=== PATIENT | female | born 1970 | race Caucasian/White ===

== ENCOUNTER 2022-12-18 20:05 | Outpatient (OUT) | payer BC, SELFPAY | END 2022-12-18 20:06 | disposition home or self-care (01) | LOC: SLEEP 20:05 | PROVIDERS: PCP Psychiatry & Neurology Neurology; Visit Provider Psychiatry & Neurology Neurology | DX: G47.33 Obstructive sleep apnea (adult) (pediatric) (principal); G47.00 Insomnia, unspecified; R06.83 Snoring | CPT/HCPCS: 95810 ==

== ENCOUNTER 2023-01-18 09:06 | Outpatient (OUT) | payer BC, SELFPAY ==
[2023-01-18 09:30] LABS: Basophils Absolute Auto 0.1 10^3/uL (0.0-0.1); Basophils Percent Auto 0.5 % (0.2-2.0); Eosinophils Absolute Auto 0.4 10^3/uL (0.0-0.7); Eosinophils Percent Auto 3.1 % (0.9-7.0); Hematocrit 46.9 % (36.0-48.0); Hemoglobin 15.6 g/dL (12.0-16.0); Immature Granulocytes Abs Auto 0.07 10^3/uL (0.00-0.03); Immature Granulocytes Pct Auto 0.5 % (0.0-0.5); Lymphocytes Absolute Auto 2.1 10^3/uL (1.2-3.8); Lymphocytes Percent Auto 16.6 % (20.5-60.0); Mean Corpuscular HGB Conc 33.3 g/dL (29.9-35.2); Mean Corpuscular Hemoglobin 31.5 pg (26.7-34.0); Mean Corpuscular Volume 94.6 fL (81.0-99.0); Mean Platelet Volume 9.6 fL (9.5-13.5); Monocytes Absolute Auto 1.4 10^3/uL (0.3-0.8); Monocytes Percent Auto 11.2 % (1.7-12.0); Neutrophils Absolute Auto 8.8 10^3/uL (1.4-6.5); Neutrophils Percent Auto 68.1 % (43.0-75.0); Platelet Count 323 10^3/uL (150-450); Red Blood Count 4.96 10^6/uL (4.20-5.40); Red Cell Distribution Width 13.1 % (11.0-15.0); White Blood Count 12.9 10^3/uL (4.0-11.0)
[2023-01-18 10:20] LABS: Alanine Aminotransferase 47 U/L (14-59); Albumin Globulin Ratio 0.9; Albumin Level 3.8 g/dL (3.4-5.0); Alkaline Phosphatase 79 U/L (46-116); Aspartate Amino Transferase 29 U/L (15-37); BUN Creatinine Ratio 11.4; Bilirubin Total 0.5 mg/dL (0.2-1.0); Calcium 9.2 mg/dL (8.5-10.1); Carbon Dioxide 26.5 mmol/L (21.0-32.0); Chloride 101 mmol/L (98-107); Chol HDL Ratio 4.2; Cholesterol 185 mg/dL (<=200); Estimated GFR (African America >60 (>=60); Estimated GFR (Non-African Ame >60 (>=60); Globulin 4.1 g/dL; Glucose 119 mg/dL (74-106); HDL Cholesterol 44 mg/dL (40-60); Potassium 4.5 mmol/L (3.5-5.1); Sodium 138 mmol/L (136-145); Thyroid Stimulating Hormone 1.801 uIU/mL (0.358-3.740); Total Protein 7.9 g/dL (6.4-8.2); Triglycerides 354 mg/dL (<=150); VLDL CHOLESTEROL 70.8 mg/dL
[2023-01-18 10:35] LABS: Estimated Average Glucose 123 mg/dL; Glycohemoglobin A1C 5.9 % (4.5-6.2)
== END 2023-01-18 09:07 | disposition home or self-care (01) ==
LOC: LAB 09:09
PROVIDERS: PCP Nurse Practitioner Family; Visit Provider Family Medicine
DX: Z00.00 Encounter for general adult medical examination without abnormal findings (principal)
CPT/HCPCS: 36415; 80053; 80061; 83036; 84436; 84443; 85025

== ENCOUNTER 2023-02-27 20:03 | Outpatient (OUT) | payer BC, SELFPAY | END 2023-02-27 20:04 | disposition home or self-care (01) | LOC: SLEEP 20:03 | PROVIDERS: PCP Nurse Practitioner Family; Visit Provider Psychiatry & Neurology Neurology | DX: G47.33 Obstructive sleep apnea (adult) (pediatric) (principal); F51.01 Primary insomnia | CPT/HCPCS: 95811 ==

== ENCOUNTER 2023-03-27 19:52 | Outpatient (REF) | payer BC, SELFPAY ==
[2023-04-04 09:12] LABS: Pap IG (Image Guided) Note (.)
== END 2023-03-27 19:53 | disposition home or self-care (01) ==
LOC: LAB 19:52
PROVIDERS: PCP Nurse Practitioner Family; Visit Provider Physician Assistant
DX: R87.612 Low grade squamous intraepithelial lesion on cytologic smear of cervix (LGSIL) (principal)
CPT/HCPCS: 87624; G0145

== ENCOUNTER 2023-03-28 11:30 | Outpatient (OUT) | payer BC, SELFPAY ==
--- NOTE | 2023-03-28 11:32 | MM_ITS ---
Patient: NOEL MENDOZA Exam Date: 03/28/2023 : 1970 Gender:F Ordering : DR Eduardo Huitron . Admission #: [id number] Family : CYNDEE MOSELEY [employer]-C Order #: [id number] CLICK HERE TO VIEW EXAM RADIOLOGY REPORT PROCEDURE: MM TOMOSYNTHESIS SCREENING BI COMPARISON: MG MAMM SCREEN SAUL W CAD, 06/10/2020. MG MAMM SCREEN 3D SAUL CAD, 09/08/2021. INDICATIONS: Screening Calculator Name NCI Breast Cancer Risk Assessment Tool 5 Year Breast Cancer Risk 0.80% Lifetime Breast Cancer Risk 6.70% Personal Breast Cancer No Personal Ovarian Cancer No Treatments None Family Cancers Father with prostate cancer at age 70; Brother with colon cancer at age 50. LOCATION: [facility] BREAST COMPOSITION: Heterogeneously dense,which may obscure small masses. FINDINGS: DIAGNOSTIC CATEGORY 2--BENIGN FINDING: Scattered benign-appearing nodules are present. Scattered benign-appearing calcifications are present. Scattered benign-appearing lymph nodes are present. RIGHT BREAST: No significant suspicious finding. LEFT BREAST: No significant suspicious finding. RECOMMENDATIONS: ROUTINE MAMMOGRAM AND CLINICAL EVALUATION IN 12 MONTHS. PLEASE NOTE: A NORMAL MAMMOGRAM DOES NOT EXCLUDE THE POSSIBILITY OF BREAST CANCER. A CLINICALLY SUSPICIOUS PALPABLE LUMP SHOULD BE BIOPSIED. Dictated by: Magdaleno Frank MD on 03/29/2023 at 11:05 Approved by: Magdaleno Frank MD on 03/29/2023 at 11:06
== END 2023-03-28 11:31 | disposition home or self-care (01) ==
LOC: MAMMO 11:30
PROVIDERS: PCP Nurse Practitioner Family; Visit Provider Obstetrics & Gynecology
DX: Z12.31 Encounter for screening mammogram for malignant neoplasm of breast (principal); Z80.42 Family history of malignant neoplasm of prostate; Z80.0 Family history of malignant neoplasm of digestive organs
CPT/HCPCS: 77063; 77067

== ENCOUNTER 2024-01-29 06:49 | Outpatient (OUT) | payer BC, SELFPAY ==
--- OUTSIDE RECORDS SUMMARY | 2024-01-29 06:52 | XMS_ITS | CCD ---
Author Organization [facility] CliniSyt[facility] Care Team Providers Care Foot Tender Name Role Phone UNKNOWN, PROVIDER Attending Unavailable OSIEL PETTIT Primary Care Unavailable Joseph Osiel Murphy Unavailable Unavailable Unavailable Jael Fournier Unavailable Ms. Jerome Pelaez Attending Unavailable Ms. Jerome Pelaez Referring Unavailable Dr. Osiel Pettit Primary Care Unava ilable Kimberley Rodríguez Unavailable Eduardo ZHOU Referring Unavailable Chris TRAYLOR Attending Unavailable DO Osiel Pettit Primary Care Provider MANAV Christian Emergency Provider [phone] MD Shari Kang Admit Provider MD Shari Kang Attending Provider [phone] MD Savanna Orellana Attending Provider DO Rajesh Hurd Other Provider Kimberley Rodríguez Admitting Unavailable Kimberley Rodríguez Attending Unavailable Osiel Pettit Primary Care Unavailable Osiel Pettit Primary Care Unavailable Shari Kang Admitting Unavailable Rajesh Hurd Consulting Unavailable Savanna Orellana Attending Unavailable DO Osiel Pettit Primary Care Provider [phone] MANAV Christian Emergency Provider [phone] MD Shari Kang Admit Provider MD Savanna Orellana Attending Provider DO Rajesh Hurd Other Provider SHERMAN Rodríguez Attending Provider Dr. Osiel Pettit Primary Care Elfego Bacon Attending Unavailable Benigno, Simeon Jerome Cox Yoav Attending Carloi lable House, Dr. Osiel Lester Primary Care Elfego Bacon Referring Unavailable HOUSE, DR ROACH Primary Care Unavailable REQUEST, DR BAILEY LISTED Admitting Unavaila ble REQUEST, DR BAILEY LISTED Consulting Unavaila ble REQUEST, DR BAILEY LISTED Attending Unavaila ble HOUSE, DR ROACH Primary Care Unavailable HOUSE, DR ROACH Consulting Unavailable HOUSE, DR ROACH Attending Unavailable HOUSE, DR ROACH Referring Unavailable HOUSE, DR ROACH Admitting Unavailable HOUSE, DR ROACH Primary Care Unavailable ABELARDO ., DR MACHUCA Admitting Unavailable ABELARDO ., DR MACHUCA Consulting Unavailable ABELARDO ., DR MACHUCA Attending Unavailable ASHLAND, DR DIANA Gonzalez Attending Unavailable HOUSE, DR ROACH Primary Care Unavailable ASHLAND, DR DIANA Gonzalez Admitting Unavailable ASHLAND, DR DIANA Gonzalez Consulting Unavailable Mag Perry Unavailable Karmen Tovar Unavailable [phone] IVETTE SHIELDS Unavailable [place] Osiel EATON Primary Care Provider ELFEGO MARSHALL Referring Unavailable OSIEL PETTIT Primary Care Unavailable Allergies Allergy Classification Reported Allergen(s) Allergy Type Date of Onset Reaction(s) Facility (20 sources) Hmg-Coa Reductase Inhibitors (Statins); Translations: [Statins] Allergy to drug (finding) [facility] 250 DO Work Phone: (20 sources) Penicillins; Translations: [Penicillins] Allergy to drug (finding) 11-11-2013 [facility] Repository (12 sources) Penicillin V Drug Allergy [facility] Hooked Other (1 source) Penicillin; Translations: [penicillin] Drug Allergy [facility] Repository (1 source) Penicillins Drug allergy (disorder) 07-02-2022 [facility] Repository (1 source) Penicillins Drug allergy (disorder) 08-06-2013 [facility] Repository (2 sources) HMG-CoA reductase inhibitor; Translations: [[id number] REDUCTASE INHIBITORS] Drug Allergy 08-20-2023 [facility] Work Phone: (1 source) Penicillins Drug Allergy 11-11-2013 [facility] Medications Current Medications Medication Drug Class(es) Dates Sig (Normalized) Sig (Original) aspirin 81 mg delayed release oral tablet (20 sources) Platelet Aggregation Inhibitor, Nonsteroidal Anti-inflammatory Drug Start: 05-15-2023 take 2 tablets by mouth once daily aspirin 81 mg EC tablet Indications: Atherosclerosis of [place] coronary artery of [place] heart without angina pectoris TAKE 2 TABLETS BY MOUTH EVERY DAY 60 tablet 11 05/15/2023 Active Start: 11-02-2022 take 1 tablet by hung every other day Aspirin 81 MG Oral Tablet Delayed Release TAKE 1 TABLET EVERY OTHER DAY Quantity: 45 Refills: 3 Ordered: 02-Nov-2022 Elfego Marshall DO Start : 02-Nov-2022 Active Fill at patient request only Start: 07-03-2022 take 81 mg by mouth once daily Aspirin Active 81 MG PO Daily 0 July 03, 2022 1:00am Start: 12-02-2021 take 2 tablets by mo [facility] once daily Aspirin Low Dose 81 MG Oral Tablet Delayed Release TAKE 2 TABLETS DAILY DIRECTED Quantity: 180 Refills: 3 Ordered: 04-Jul-2022 Elfego Marshall DO Start : 02-Dec-2021 Active Start: 07-01-2019 End: 07-03-2022 take 162 mg by mouth once daily Aspirin Discontinued 1 62 MG PO Daily July 01, 2019 1:00am July 03, 2022 4:45pm take 1 tablet by [facility] every twenty-four hours Aspirin 81 MG 1 tablet Orally Once a day Active brompheniramine maleate 0.4 mg/ml / dextromethorphan hydrobromide 2 mg/ml / pseudoephedrine hydrochloride 6 mg/ml oral solution (1 source) alpha-Adrenergic Agonist, Uncompetitive V-rrayrc-L-aspartate Receptor Antagonist, Sigma-1 Agonist Start: 04-14-2022 take 10 mL by mouth every six hours Wgfcuvdve-Zjsdrpvq-YA 30-2-10 MG/5ML 10 mL Orally every 6 hours for 5 days Apr, Active cholecalciferol 0.05 mg oral capsule (11 sources) Vitamin D Start: 08-31-2020 take 1 capsule by mouth once daily Cholecalciferol (Vitamin D3) (Vitamin D3) 50 mcg (2,000 unit) Capsule Active 50 MCG PO Daily August 31, 2020 12:00am take 1 capsule by mo [facility] every twenty-four hours Vitamin D3 50 MCG (1999) 1 capsule Orally Once a day Active clopidogrel 75 mg oral tablet (20 sources) P2Y12 Platelet Inhibitor Start: 08-31-2020 End: 07-02-2022 take 75 mg by mouth once daily Clopidogrel Active 75 MG PO Daily July 03, 2022 1:00am 1 ml evolocumab 140 mg/ml prefilled syringe (5 sources) PCSK9 Inhibitor Start: 10-23-2023 Evolocumab (Repatha Syringe) 140 mg/mL syringe Active MG SUBCUT October 23, 2023 12:00am Start: 05-10-2023 End: 05-09-2024 inject 1 mL by subcutaneous injection once evolocumab (Repatha SureClick) 140 mg/mL injection Indications: Atherosclerosis of [place] coronary artery of [place] heart without angina pectoris , Hyperlipidemia, unspecified hyperlipidemia type Inject 1 mL (140 mg) under the skin every 14 (fourteen) days. 6 mL 3 05/10/2023 05/09/2024 Active Start: 01-26-2023 Repatha 140 MG /ML Subcutaneous Solution Prefilled Syringe 1 injection every 2 weeks Quantity: 6 Refills: 3 Ordered: 26-Jan-2023 Jerome Younger Start : 26-Jan-2023 Active replaces Praulent methylPREDNISolone 4 mg oral tablet (1 source) Corticosteroid Start: 01-28-2024 take 1 tablet by mouth once Methylprednisolone (Medrol (Nolan)) 4 mg tablets,dose pack Active 0 PO per package directions January 28, 2024 12:00am PO PER PKG DIR metoprolol tartrate 25 mg oral tablet (20 sources) beta-Adrenergic Jason Start: 10-06-2021 take 0.5 tablet by mouth twice daily Metoprolol Tartrate 25 MG Oral Tablet take 1/2 tablet by mouth twice a day Quantity: 90 Refills: 0 Ordered: 06-Dec-2021 Jerome Younger Start : 06-Oct-2021 Active Start: 09-01-2020 End: 05-09-2024 take 1 tablet by mouth twice daily metoprolol tartrate (Lopressor) 25 mg tablet Indications: Atherosclerosis of [place] coronary artery of [place] heart without angina pectoris Take 1 tablet (25 mg) by mouth 2 times a day. 180 tablet 3 05/10/2023 05/09/2024 Active Start: 07-01-2019 End: 09-01-2020 take 12.5 mg by mouth twice daily Metoprolol Tartrate Discontinued 12.5 MG PO Twice daily July 01, 2019 1:00am September 01, 2020 12:51pm pantoprazole 40 mg delayed release oral tablet (20 sources) Proton Pump Inhibitor Start: 07-01-2019 take 40 mg by mouth once daily Pantoprazole Active 40 MG PO Daily July 01, 2019 1:00am take 1 tablet by hung th once daily before mealtime pantoprazole (ProtoNix) 20 mg EC tablet Take 1 tablet (20 mg) by mouth once daily in the morning. Take before meals. Do not crush, chew, or split. Active spironolactone 100 mg oral tablet (20 sources) Aldosterone Antagonist Start: 07-01-2019 End: 05-09-2024 take 1 tablet by mouth once daily spironolactone (Aldactone) 100 mg tablet Indications: Atherosclerosis of [place] coronary artery of [place] heart without angina pectoris Take 1 tablet (100 mg) by mouth once daily. 90 tablet 3 05/10/2023 05/09/2024 Active tiZANidine 2 mg oral tablet (1 source) Central alpha-2 Adrenergic Agonist Start: 01-28-2024 take 2 mg by mouth every eight hours Tizanidine Active 2 MG PO Every 8 hours 09 04January 28, 2024 12:00am Completed/Discontinued Medications Medication Drug Class(es) Dates Sig (Normalized) Sig (Original) 1 ml alirocumab 150 mg/ml auto-injector (20 sources) PCSK9 Inhibitor Start: 11-21-2021 inject 75 mg by subcutaneous injection every other week Praluent 75 MG/ML Subcutaneous Solution Auto-injector INJECT 75MG EVERY 2 WEEKS UNDER THE SKIN Quantity: 6 Refills: 3 Ordered: 21-Nov-2021 Jerome Younger Start : 21-Nov-2021 Active Start: 11-16-2021 inject 75 mg by subc utaneous injection every other week Praluent 75 MG/ML Subcutaneous Solution Auto-injector INJECT 75MG EVERY 2 WEEKS UNDER THE SKIN Quantity: 6 Refills: 3 Ordered: 17-Nov-2021 Jerome Younger Start : 17-Nov-2021 Active Start: 10-26-2021 End: 10-23-2023 inject 150 mg by subcutaneous injection every other week Alirocumab (Praluent Pen) 150 mg/mL pen injector Discontinued 150 MG SUBCUT EVERY 2 WEEKS July 02, 2022 1:00am October 23, 2023 12:28pm atorvastatin 40 mg oral tablet (4 sources) HMG-CoA Reductase Inhibitor Start: 07-01-2019 End: 08-31-2020 take 12.5 mg by mouth twice daily Atorvastatin Discontinued 12.5 MG PO Twice daily July 01, 2019 1:00am August 31, 2020 1:43am bempedoic acid 180 mg oral tablet (4 sources) Start: 08-31-2020 End: 07-02-2022 take 1 tablet by mouth once daily Bempedoic Acid (Nexletol) 180 mg tablet Discontinued 180 MG PO Daily August 31, 2020 12:00am July 02, 2022 8:12pm benzonatate 100 mg oral capsule (4 sources) Non-narcotic Antitussive Start: 07-02-2019 End: 08-31-2020 take 1 capsule by mouth three times daily Benzonatate (Tessalon Perles) 100 mg capsule Discontinued 100 MG PO Three times daily July 02, 2019 1:00am August 31, 2020 1:41am doxycycline hyclate 100 mg oral capsule (5 sources) Tetracycline-class Drug Start: 08-12-2021 take 1 capsule by mouth every twelve hours Doxycycline Hyclate 100 MG 1 capsule Orally Twice a day for 10 day(s) Aug, Not-Taking DULoxetine 30 mg delayed release oral capsule (20 sources) Serotonin and Norepinephrine Reuptake Inhibitor Start: 02-26-2023 take 1 capsule by mouth once daily DULoxetine HCl - 30 MG Oral Capsule Delayed Release Particles TAKE 1 CAPSULE BY MOUTH EVERY DAY Quantity: 30 Refills: 1 Ordered: 26-Feb-2023 Jerome Younger Start : 26-Feb-2023 Active Start: 07-01-2019 take 60 mg by mouth once daily Duloxetine Active 60 MG PO Daily July 01, 2019 1:00am Cymbalta Active fenofibrate 54 mg oral tablet (2 sources) Peroxisome Proliferator Receptor alpha Agonist Start: 03-02-2023 take 1 tablet by mouth once daily Fenofibrate 54 MG Oral Tablet TAKE 1 TABLET DAILY. Quantity: 90 Refills: 3 Ordered: 02-Mar-2023 Elfego Marshall DO Start : 02-Mar-2023 Active fluticasone propionate 0.05 mg/actuat metered dose nasal spray (6 sources) Corticosteroid Start: 12-29-2020 take 1 spray(s) nasal route once daily Flonase Allergy Relief 50 MCG/ACT 1 spray in each nostril Nasally Once a day for 14 day(s) Dec, Not-Taking furosemide 20 mg oral tablet (20 sources) Loop Diuretic Start: 02-01-2022 End: 10-23-2023 take 20 mg by mouth once daily Furosemide Discontinued 20 MG PO Daily July 02, 2022 1:00am October 23, 2023 12:28pm ibuprofen 800 mg oral tablet (4 sources) Nonsteroidal Anti-inflammatory Drug Start: 09-01-2020 End: 09-01-2020 Ibuprofen Discontinued 800 MG PO every 6 to 8 hours September 01, 2020 12:00am September 01, 2020 12:51pm LORazepam 0.5 mg oral tablet (4 sources) Benzodiazepine Start: 07-02-2019 End: 07-02-2019 take 0.5 mg by mouth three times daily Lorazepam Discontinued 0.5 MG PO Three times daily July 02, 2019 1:00am July 02, 2019 5:53pm prasugrel 10 mg oral tablet (4 sources) P2Y12 Platelet Inhibitor Start: 07-02-2019 End: 08-31-2020 take 1 tablet by mouth once daily Prasugrel (Effient) 10 mg Tablet Discontinued 10 MG PO Daily 30 July 02, 2019 1:00am August 31, 2020 1:41am predniSONE 50 mg oral tablet (4 sources) Start: 08-31-2020 End: 07-02-2022 take 50 mg by mouth once daily Prednisone Discontinued 50 MG PO Daily 5 5 August 31, 2020 12:00am July 02, 2022 8:12pm Problems Active Problems Problem Classification Problem Date Documented Date Episodic/Chronic Acute myocardial infarction (20 sources) Myocardial infarction; Translations: [Acute myocardial infarction of unspecified site, episode of care unspecified] Onset: 03-23-2023 07-02-2019 Chronic Cardiac dysrhythmias (20 sources) Paroxysmal supraventricular tachycardia; Translations: [Paroxysmal supraventricular tachycardia] Onset: 03-23-2023 08-31-2020 Chronic Coronary atherosclerosis and other heart disease (20 sources) Old myocardial infarction; Translations: [Atherosclerotic heart disease of [place] coronary artery without angina pectoris] Onset: 06-28-2018 07-01-2019 Chronic Coronary atherosclerosis and other heart disease (6 sources) Coronary angioplasty status; Translations: [Post percutaneous transluminal coronary angioplasty] Onset: 06-28-2018 07-01-2019 Episodic Diabetes mellitus without complication (7 sources) Diabetes mellitus; Translations: [Diabetes mellitus without mention of complication, type II or unspecified type, not stated as uncontrolled] Onset: 08-20-2023 08-20-2023 Chronic Diseases of white blood cells (4 sources) Leukocytosis; Translations: [Elevated white blood cell count, unspecified] 07-01-2019 Chronic Disorders of lipid metabolism (20 sources) Hyperlipidemia; Translations: [Other and unspecified hyperlipidemia] Onset: 07-02-2022 07-01-2019 Chronic E Codes: Natural/environment (2 sources) Tick bite; Translations: [Bitten or stung by nonvenomous insect and other nonvenomous arthropods, initial encounter] 10-23-2023 Episodic Esophageal disorders (10 sources) Gastroesophageal reflux disease without esophagitis; Translations: [Gastro-esophageal reflux disease without esophagitis] Chronic Essential hypertension (8 sources) Hypertensive disorder; Translations: [Essential (primary) hypertension] Onset: 07-02-2022 07-02-2022 Chronic Fever of unknown origin (1 source) Fever; Translations: [Fever, unspecified] 01-28-2024 Episodic Fluid and electrolyte disorders (4 sources) Hyponatremia; Translations: [Hypo-osmolality and hyponatremia] 07-01-2019 Episodic Genitourinary symptoms and ill-defined conditions (2 sources) Dysuria; Translations: [Dysuria] Onset: 09-05-2022 Episodic Headache; including migraine (2 sources) Headache; Translations: [Headache] 01-28-2024 Episodic Malaise and fatigue (20 sources) Other fatigue; Translations: [Fatigue] Onset: 06-28-2018 03-23-2023 Episodic Mood disorders (15 sources) Reactive depression (situational); Translations: [Major depressive disorder, single episode, unspecified] Onset: 08-20-2023 Chronic Nonspecific chest pain (20 sources) Other chest pain; Translations: [Chest discomfort] Onset: 06-28-2018 07-01-2019 Episodic Other circulatory disease (20 sources) Cardiac function test normal; Translations: [Normal cardiac ejection fraction] Episodic Other circulatory disease (2 sources) Personal history of transient ischemic attack (TIA), and cerebral infarction without residual deficits Episodic Other connective tissue disease (4 sources) Musculoskeletal pain; Translations: [Myalgia, other site] 08-31-2020 Episodic Other hematologic conditions (4 sources) Raised cardiac enzyme or marker; Translations: [Other specified abnormalities of plasma proteins] 07-01-2019 Episodic Other lower respiratory disease (1 source) Shortness of breath Onset: 06-28-2018 Episodic Other nervous system disorders (4 sources) Numbness; Translations: [Anesthesia of skin] 07-02-2022 Episodic Other nervous system disorders (4 sources) Anesthesia of skin; Translations: [Disturbance of skin sensation] Onset: 07-02-2022 07-02-2022 Episodic Other nutritional; endocrine; and metabolic disorders (10 sources) Body mass index 25-29 - overweight; Translations: [Body Mass Index 28.0-28.9, adult] Episodic Other nutritional; endocrine; and metabolic disorders (20 sources) Overweight in adulthood with body mass index of 25 or more but less than 30; Translations: [Overweight] Episodic Other upper respiratory infections (4 sources) Acute pansinusitis, unspecified; Translations: [Acute upper respiratory infection, unspecified] Onset: 08-12-2021 Resolved: 08-12-2021 Episodic Residual codes; unclassified (5 sources) Swelling - edema - symptom; Translations: [Edema] Episodic Spondylosis; intervertebral disc disorders; other back problems (2 sources) Neck pain; Translations: [Cervicalgia] 01-28-2024 Episodic Substance-related disorders (20 sources) Nicotine dependence, unspecified, uncomplicated; Translations: [Smokes tobacco daily] Onset: 06-28-2018 07-01-2019 Chronic Comment on above: SMOKES ABOUT 1 PPD; Transient cerebral ischemia (20 sources) Transient cerebral ischemia; Translations: [Unspecified transient cerebral ischemia] Onset: 03-23-2023 03-23-2023 Chronic Unclassified (1 source) Pure hypercholesterolemia, unspecified Onset: 06-28-2018 Unclassified (1 source) Prsnl hx of TIA (TIA), and cereb infrc w/o resid deficits Onset: 06-28-2018 Past or Other Problems Problem Classification Problem Date Documented Date Episodic/Chronic Immunizations and screening for infectious disease (2 sources) Contact with and (suspected) exposure to other viral communicable diseases; Translations: [Encounter for screening for human papillomavirus (HPV)] Onset: 08-12-2021 Resolved: 08-12-2021 Episodic Other circulatory disease (20 sources) Patient post angioplasty; Translations: [Other postprocedural status] Onset: 03-23-2023 03-23-2023 Episodic Other screening for suspected conditions (not mental disorders or infectious disease) (4 sources) Encounter for screening for malignant neoplasm of cervix; Translations: [ENC SCREENING MALIG NEOPLASM CERV] Onset: 04-20-2022 Episodic Alyce-; endo-; and myocarditis; cardiomyopathy (except that caused by tuberculosis or sexually transmitted disease) (20 sources) Disease of pericardium, unspecified; Translations: [Pericarditis] Onset: 06-28-2018 03-23-2023 Episodic Residual codes; unclassified (20 sources) Edema; Translations: [Edema] Onset: 03-23-2023 03-23-2023 Episodic Unclassified (2 sources) Contact with and (suspected) exposure to covid-19 Z20.822 Unclassified (2 sources) History of COVID-19 Z86.16 Viral infection (1 source) COVID-19 Results Test Name Value Interpretation Reference Range Facility Cardiac stress study [facility] 11-21-[address], [address] [place] [address] Exercise Stress Test Patient Name: SHEFALI RIGGS Ordering Provider: [id number] ELFEGO MARSHALL Study Date: 11/21/2023 Reading Physician: [id number] Deuce Roberto MD, [facility] MRN/PID: [id number] Supervising Physician: [id number] Elfego Hernandez MD Fellow: Date of /Age: 8 1970 / 53 years Fellow: Gender: F Nurse: Zuleyma Bell RN Admission Status: Behavioral Health Associate: NA Height: 162.56 cm Technologist: Weight: 76.20 kg Additional Staff: BSA: 1.82 m2 BMI: 28.84 kg/m2 Patient Location: Study Type: STRESS TEST ONLY Diagnosis/ICD: Atherosclerotic heart disease-I25.10 Indication: Chest Pain CPT Codes: Stress Test Interpretation-87211; Stress Test Supervision-[id number] Falls Risk: Low: Patient has low risk for sustaining a fall; environmental safety interventions in place. Study Details: Correct procedure and correct patient verified verbally. Patient Performance: The peak heart rate achieved was 142 bpm, which was 85 % of the age predicted target heart rate of 166 bpm. The resting blood pressure was 128/82 mmHg with a heart rate of 66 bpm. The standing blood pressure was 124/86 mmHg with a heart rate of 70 bpm. The patient's functional capacity was below average. The patient developed dyspnea during the stress exam. The blood pressure response was normal. The test was terminated due to: dyspnea. Double Product (HR x BP): 216. Baseline ECG: Resting ECG showed normal sinus rhythm. Stress Stage Data: + +---+-- ----+-------+ HR Sys BP Rivera BP + +---+-- ----+-------+ Baseline Resting 66 128 82 + +---+-- ----+-------+ Baseline Standing 70 124 86 + +---+-- ----+-------+ Stage I 120 132 78 + +---+-- ----+-------+ Stage II 142 152 86 + +---+-- ----+-------+ Recovery ECG: The heart rate recovery was normal. + +---+------+ -------+ HR Sys BP Rivera BP + +---+------+ -------+ Recovery I 142 152 86 + +---+------+ -------+ Recovery II 126 156 86 + +---+------+ -------+ Recovery III 99 132 86 + +---+------+ -------+ Recovery IV 81 122 82 + +---+------+ -------+ Summary: 1. 1_normal graded exercise tolerance test after completing 6 minutes on a Eric protocol and achieving 85% of predicted maximal heart rate and a workload of 7 METS. Blood pressure nikolay to 156/86 mmHg. 2_no chest pain, cardiac arrhythmias or ischemic ST segment abnormalities induced by exercise 3_somewhat limited exercise tolerance for age, appropriate heart recovery and achievement of Rodriguez treadmill score of 6+ which is favorable. 2. Adequate level of stress achieved. [id number] Deuce Roberto MD, FACC Electronically signed on 11/21/2023 at 4:57:24 PM Final Deuce Crawley M D - 11/21/[address], [address] [place] [address] Exercise Stress Test Patient Name: SHEFALI RIGGS Ordering Provider: [id number] ELFEGO MARSHALL Study Date: 11/21/2023 Reading Physician: [id number] Deuce Roberto MD, FACC MRN/PID: [id number] Supervising Physician: [id number] Elfego Hernandez MD Fellow: Date of /Age: 8 1970 / 53 years Fellow: Gender: F Nurse: Zuleyma Bell RN Admission Status: Behavioral Health Associate: MANINDER Height: 162.56 cm Technologist: Weight: 76.20 kg Additional Staff: BSA: 1.82 m2 BMI: 28.84 kg/m2 Patient Location: Study Type: STRESS TEST ONLY Diagnosis/ICD: Atherosclerotic heart disease-I25.10 Indication: Chest Pain CPT Codes: Stress Test Interpretation-21795; Stress Test Supervision-[id number] Falls Risk: Low: Patient has low risk for sustaining a fall; environmental safety interventions in place. Study Details: Correct procedure and correct patient verified verbally. Patient Performance: The peak heart rate achieved was 142 bpm, which was 85 % of the age predicted target heart rate of 166 bpm. The resting blood pressure was 128/82 mmHg with a heart rate of 66 bpm. The standing blood pressure was 124/86 mmHg with a heart rate of 70 bpm. The patient's functional capacity was below average. The patient developed dyspnea during the stress exam. The blood pressure response was normal. The test was terminated due to: dyspnea. Double Product (HR x BP): 216. Baseline ECG: Resting ECG showed normal sinus rhythm. Stress Stage Data: + +---+-- ----+-------+ HR Sys BP Rivera BP + +---+-- ----+-------+ Baseline Resting 66 128 82 + +---+-- ----+-------+ Baseline Standing 70 124 86 + +---+-- ----+-------+ Stage I 120 132 78 + +---+-- ----+-------+ Stage II 142 152 86 + +---+-- ----+-------+ Recovery ECG: The heart rate recovery was normal. + +---+------+ -------+ HR Sys BP Rivera BP + +---+------+ -------+ Recovery I 142 152 86 + +---+------+ -------+ Recovery II 126 156 86 + +---+------+ -------+ Recovery III 99 132 86 + +---+------+ -------+ Recovery IV 81 122 82 + +---+------+ -------+ Summary: 1. 1_normal graded exercise tolerance test after completing 6 minutes on a Eric protocol and achieving 85% of predicted maximal heart rate and a workload of 7 METS. Blood pressure nikolay to 156/86 mmHg. 2_no chest pain, cardiac arrhythmias or ischemic ST segment abnormalities induced by exercise 3_somewhat limited exercise tolerance for age, appropriate heart recovery and achievement of Rodriguez treadmill score of 6+ which is favorable. 2. Adequate level of stress achieved. [id number] Deuce Roberto MD, [facility] Electronically signed on 11/21/2023 at 4:57:24 PM Final [facility] Work Phone: Cardiac stress study Procedu reOrdered By: Deuce Roberto on 11-21-2023 [facility] Work Phone: STRESS TEST ONLYon 4 STRESS TEST ONLY [address], [place] [address] Exercise Stress Test Patient Name: SHEFALI RIGGS Ordering Provider: [id number] ELFEGO MARSHALL Study Date: 11/21/2023 Reading Physician: [id number] Deuce Roberto MD, [facility] MRN/PID: [id number] Supervising Physician: [id number] Elfego Hernandez MD Fellow: Date of /Age: 8 1970 / 53 years Fellow: Gender: F Nurse: Zuleyma Bell RN Admission Status: Behavioral Health Associate: MANINDER Height: 162.56 cm Technologist: Weight: 76.20 kg Additional Staff: BSA: 1.82 m2 BMI: 28.84 kg/m2 Patient Location: Study Type: STRESS TEST ONLY Diagnosis/ICD: Atherosclerotic heart disease-I25.10 Indication: Chest Pain CPT Codes: Stress Test Interpretation-48009; Stress Test Supervision-[id number] Falls Risk: Low: Patient has low risk for sustaining a fall; environmental safety interventions in place. Study Details: Correct procedure and correct patient verified verbally. Patient Performance: The peak heart rate achieved was 142 bpm, which was 85 % of the age predicted target heart rate of 166 bpm. The resting blood pressure was 128/82 mmHg with a heart rate of 66 bpm. The standing blood pressure was 124/86 mmHg with a heart rate of 70 bpm. The patient's functional capacity was below average. The patient developed dyspnea during the stress exam. The blood pressure response was normal. The test was terminated due to: dyspnea. Double Product (HR x BP): 216. Baseline ECG: Resting ECG showed normal sinus rhythm. Stress Stage Data: + +---+-- ----+-------+ HR Sys BP Rivera BP + +---+-- ----+-------+ Baseline Resting 66 128 82 + +---+-- ----+-------+ Baseline Standing 70 124 86 + +---+-- ----+-------+ Stage I 120 132 78 + +---+-- ----+-------+ Stage II 142 152 86 + +---+-- ----+-------+ Recovery ECG: The heart rate recovery was normal. + +---+------+ -------+ HR Sys BP Rivera BP + +---+------+ -------+ Recovery I 142 152 86 + +---+------+ -------+ Recovery II 126 156 86 + +---+------+ -------+ Recovery III 99 132 86 + +---+------+ -------+ Recovery IV 81 122 82 + +---+------+ -------+ Summary: 1. 1_normal graded exercise tolerance test after completing 6 minutes on a Eric protocol and achieving 85% of predicted maximal heart rate and a workload of 7 METS. Blood pressure nikolay to 156/86 mmHg. 2_no chest pain, cardiac arrhythmias or ischemic ST segment abnormalities induced by exercise 3_somewhat limited exercise tolerance for age, appropriate heart recovery and achievement of Rodriguez treadmill score of 6+ which is favorable. 2. Adequate level of stress achieved. [id number] Deuce Roberto MD, FACC Electronically signed on 11/21/2023 at 4:57:24 PM Final [facility] COVID Quick Testingon 2022 Result Positive [employer] Other Urinalysis - AUTOMATEDon Appearance (U) clear [employer] Other Bilirubin Ql (U) Negative [employer] Other Color (U) light yellow [employer] Other Glucose Ql (U) Negative [employer] Other Hemoglobin Ql (U) TRACE-INTACT [employer] Other Ketones Ql (U) Negative [employer] Other Leukocyte esterase Test strip Ql (U) Negative [employer] Other Nitrite Ql (U) Negative [employer] Other pH (U) 7.0 [pH] [employer] Other Protein Ql (U) Negative [employer] Other Specific gravity (U) [Rel density] 1.010 [employer] Other Urobilinogen (U) [Mass/Vol] 0.2 mg/dL [employer] Other Urinalysis - AUTOMATED No rt [employer] Other Urine Cultureon 09-05-2022 Bacteria identified Cx Nom (U) Reason for Exam Dysuria Urine 40,000 colonies/ml mixed bacterial skin contaminants 2 Days PERFORMED BY: [place] [id number] PATHOLOGIST LIBRARIAN SPECIALIST KIRSTIN ALFORD M.D. Normal [facility] Comment on above: Performed By: #### C UU #### [facility] [address] [place] [address] ANNMARIE COVID-19 ANTIGENon 08-25 EUA Statement SEE BELOW Normal [facility] Comment on above: Result Comment: This test has not been FDA cleared or approved, but has been authorized by the FDA under an Emergency Use Authorization (EUA) for use by authorized laboratories certified under CLIA that meet the requirements to perform moderate or high complexity testing. This test has been authorized only for the detection of proteins from SARS-CoV-2, not for any other viruses or pathogens. The emergency use of this test is authorized for the duration of the declaration that circumstances exist justifying the authorization of emergency use of in vitro diagnostic tests for detection and/or diagnosis of Covid-19 under section 564(b)(1) of the Act, 21 U.S.C. 360bbb-3(b)(1), unless the declaration is terminated or authorization is revoked sooner. Performed By: #### D ATCVAG #### [facility] [address] [place] [address] Dr. Alley Ochoa SARS-CoV-2 (COVID-19) RNA SCOTTY+probe Ql (Unsp spec) Negative Normal NEGATIVE [facility] Comment on above: Performed By: #### D ATCVAG #### [facility] [address] [place] [address] Dr. Alley Ochoa A1C with Estimated Average G luon 07-03-2022 Glucose [Mass/Vol] 120 mg/dL Normal [facility] Comment on above: Result Comment: PERF ORMED BY: [place] [address] PATHOLOGIST LIBRARIAN SPECIALIST KIRSTIN ALFORD M.D. Performed By: #### L IPID, A1C [facility] ####[facility] [id number] [place] [id number] [facility] CT angio neckon 07-03-2022 CT angio neck [facility] Main [place] [address] [place] [address] CT Scan Report Signed Patient: Shefali Riggs MR#: [id number] 187 : 1970 Acct:[id number] Age/Sex: 52 / F ADM Date: 07/02/22 Loc: Room: [address] [place] [address] Type: ADM IN Attending Dr: Savanna Orellana MD Copies to: MANAV Livingston MD Ordering Provider: Edward Christian PA-C Date of Service: 07/02/22 CT/CT angio head: acute stroke/neuro deficits ([id number]) CT/CT angio neck: acute stroke/neuro deficits CTA head and neck TECHNIQUE: Axial imaging of the head and neck with 2-D and 3-D reconstruction. 81cc of Isovue-370. The CT exam was performed using one or more the following dose reduction techniques: Automated exposure control, adjustment of the MA and/or Kv according to patient size, or use of the iterative reconstruction technique. Stenoses were measured using the NASCET criteria. COMPARISON:None HISTORY:Left-sided facial droop. Syncope. The visualized aortic arch and great vessels are unremarkable. No carotid dissection, critical stenosis or occlusion identified. Atherosclerosis of carotid bifurcations identified. No vertebral dissection, occlusion or abrupt cut off identified. The carotid siphons and vertebral basilar systems are patent. No intracranial aneurysm, dissection, abrupt cut off or critical stenosis identified.. The intracranial arterial circulation is symmetrical.. Emphysematous changes of the lung apices. Mild thoracic spondylosis. CT/CT angio head IMPRESSION: No occlusion, critical stenosis or dissection of the extracranial or intracranial circulation. No intracranial aneurysm. Impression dictated by: Yohannes Ascencio M.D.07/03/2022 8:06 AM Dictation Location: [place] [address] Transcribed By: [facility] 07/03/22 0806 Dictated By: Yohannes Ascencio DO 07/03/22 0803 Signed By: 07/03/[address] [facility] CT head stroke alert wo nelsy n 07-03-2022 CT head stroke alert wo [facility] [place] [address] CT Scan Report Signed Patient: Shefali Riggs MR#: [id number] 187 : 1970 Acct:[id number] Age/Sex: 52 / F ADM Date: 07/02/22 Loc: Room: [address] [place] [address] Type: ADM IN Attending Dr: Savanna Orellana MD Copies to: MANAV Livingston MD Ordering Provider: Edward Christian PA-C Date of Service: 07/02/22 CT/CT head stroke alert wo con: acute stroke/neuro deficits Unenhanced head CTstroke alert TECHNIQUE: Contiguous axial imaging of the head. The CT exam was performed using one or more the following dose reduction techniques: Automated exposure control, adjustment of the MA and/or Kv according to patient size, or use of the iterative reconstruction technique. COMPARISON:None HISTORY:LEFT facial droop. Syncope. The ventricles are normal in size and position. Adequate byrd-white matter differentiation identified. No intracranial hemorrhage, mass effect or herniation is identified. No recent vascular distribution infarction is seen. No abnormal extra-axial fluid collections identified. Sinuses, orbits and mastoid air cells are unremarkable. Bony structures are intact. CT/CT head stroke alert wo con IMPRESSION: No acute intracranial findings. Preliminary findings given 07/02/22 at 1930 hours Impression dictated by: Yohannes Ascencio M.D.07/03/2022 8:02 AM Dictation Location: [place] [address] Transcribed By: [facility] 07/03/22801 Dictated By: Yohannes Ascencio DO 07/03/22800 Signed By: 07/03/22 08 Normal [facility] Cholesterol [Mass/volume] in Serum or PlasmaOrdered By: Shari Kang on 07-03-2022 Cholesterol [Mass/Vol] 151 mg/dL 140-200 [facility] Comment on above: Chol less than 200 m g/dl low riskChol 201-239 mg/dl borderline riskChol 240 mg/dl and greater high risk Cholesterol in LDL Calc [Mas s/Vol]Ordered By: Shari Kang on 07-03-2022 Cholesterol in LDL [Mass/Vol] 77 mg/dL 0-100 [facility] Comment on above: LDL ATP III CLASSIFI CATIONLDL less than 100 mg/dL OptimalLDL 100-129 mg/dL Near or above optimalLDL 130-159 mg/dL Borderline highLDL 160-189 mg/dL HighLDL greater than 189 mg/dL Very high Cholesterol in VLDL Calc [Ma ss/Vol]Ordered By: Shari Kang on 07-03-2022 Cholesterol in VLDL [Mass/Vol] 34 mg/dL [facility] ECH echo transthoracicon ECH echo transthoracic [facility] Main [place] [address] [place], [place] [id number] Echocardiogram Signed Patient: Shefali Riggs MR#: [id number] 187 : 1970 Acct:[id number] Age/Sex: 52 / F ADM Date: 07/02/22 Loc: Room: [address] [place] [address] Type: DIS INOo Attending Dr: Savanna Orellana MD Ordering Provider: Shari Kang MD Date of Service: 07/02/22 ECH/ECH echo transthoracic: with bubble study, stroke work up Copies to: MD Rosio Cervantes MD BSA: 1.8 m2 BP: 138/83 mmHg HR: 51 Reason For Study: with bubble study, stroke work up History: CAD,Hypertension,PTCA,TIA ,Hyperlipidemia,Smoker, Pericarditis, SVT, TIA Interpretation Summary Ejection Fraction = 55-60%. The left ventricular size, thickness and function are normal The left ventricular wall motion is normal. A variety of Doppler measurements indicate impaired left ventricular relaxation, which is associated with grade I/IV or mild diastolic dysfunction. Atrial septum appears to be intact and there is no evidence of flow across the atrial septum either by colorflow Doppler or by agitated saline. There is trace mitral regurgitation. There is trace tricuspid regurgitation. Compared to prior study, there is no significant change. Procedure/Quality: A two-dimensional transthoracic echocardiogram with color flow, Doppler and injection of aggitated saline was performed. A two- dimensional transthoracic echocardiogram with color flow and Doppler was performed. The study was technically excellent in quality. Left Ventricle: The left ventricular size, thickness and function are normal. Ejection Fraction = 55-60%. A variety of Doppler measurements indicate impaired left ventricular relaxation, which is associated with grade I/IV or mild diastolic dysfunction. The left ventricular wall motion is normal. Left Atrium: The left atrium appears normal in size. Atrial septum appears to be intact and there is no evidence of flow across the atrial septum either by colorflow Doppler or by agitated saline. Right Atrium: The right atrium appears normal in size. Right Ventricle: The right ventricular size, thickness and function are normal. Aortic Valve: The aortic valve is normal in structure and function. No aortic regurgitation is present. Mitral Valve: The mitral valve is normal in structure and function. There is trace mitral regurgitation. Tricuspid Valve: The tricuspid valve is normal in structure and function. There is trace tricuspid regurgitation. Pulmonic Valve: The pulmonic valve is normal in structure and function. Arteries: The aortic root is normal size. Pericardium/Pleura: No pericardial effusion seen. There is no pleural effusion. IVC/Hepatic Viens: The inferior vena cava is normal in size, with a normal collapsibility index. Measurements with Normals IVSd: 1.3 cm (0.7-1.1 cm)LVIDd: 4.3 cm (3.7-5.4 cm) LVPWd: 1.1 cm (0.7-1.1 cm)LVIDs: 2.8 cm (2.3-3.6 cm) LA dimension: 3.9 cm (2.3-4.0 cm)Ao root diam: 3.2 cm(2.0-3.6 cm) asc Aorta Diam: 3.3 cm(2.1-3.4cm) Doppler with Normals MV E max toro: 81.5 cm/sec(0.8-1.3m/s) MV A max toro: 86.3 cm/sec(0.0-0.0m/s) MV E/A: 0.94 (<1.5) MMode/2D Measurements Calculations RVDd: 3.0 cm FS: 34.2 % Ao root area: LVOT diam: 1.7 cm TAPSE: 2.3 cm EDV(Teich): 7.8 cm2 LVOT area: 2.3 cm2 RV S Toro: 82.9 ml 11.7 cm/sec ESV(Teich): 30.3 ml EF(Teich): 63.5 % __ LVLd ap4: 7.1 cm SV(MOD-sp4): LAV(MOD-sp4): LA A4 area: 12.6 cm2 EDV(MOD-sp4): 21.4 ml 24.6 ml LA length (vol): 35.7 ml 5.1 cm LVLs ap4: 6.5 cm ESV(MOD-sp4): 14.3 ml EF(MOD-sp4): 59.9 % Doppler Measurements Calculations MV dec time: 0.30 sec E/E' lat: 8.2 MV dec slope: 270.7 cm/sec2 E/E' med: 11.0 ___ Transcribed By: SCV Performed At: 07/03/22 1122 Signed By: Rosio Riojas MD 07/03/22 1235 Normal [facility] Folate [Mass/volume] in Seru m or PlasmaOrdered By: Patricia Ch on 07-03-2022 Folate [Mass/Vol] 21.0 ng/mL >5.9 [facility] Comment on above: Folate reference ran ge: >5.9 ng/mlThe WHO technical consultation on folate and vitamin [id number] has determined that folate concentrations lessthan 4 ng/ml are considered deficient. Glucose mean value [Mass/vol ume] in Blood Estimated from glycated hemoglobinOrdered By: Shari Kang on 07-03-2022 Average glucose Estimated from glycated hemoglobin (Bld) [Mass/Vol] 120 mg/dL [facility] Hemoglobin A1c percentageOrd ered By: Shari Kang on 07-03-2022 HbA1c (Bld) [Mass fraction] 5.8 % High 4.3-5.6 [facility] Comment on above: Increased risk for d iabetes: 5.7 - 6.4diabetes: >6.4glycemic control for adults with diabetes: <7.0 Result Comment: Incr eased risk for diabetes: 5.7 - 6.4 diabetes: >6.4 glycemic control for adults with diabetes: <7.0 Performed By: #### L IPID, A1C [facility] ####[facility] [id number] Laboratory - Chemistry and C hemistry - challengeOrdered By: Patricia Ch on 07-03-2022 Cobalamin (Vitamin B12) [Mass/Vol] 195 pg/mL 180-914 [facility] Lipid Panelon 07-03-2022 Cholesterol [Mass/Vol] 151 mg/dL Normal 140-200 [facility] Comment on above: Result Comment: Chol less than 200 mg/dl low risk Chol 201-239 mg/dl borderline risk Chol 240 mg/dl and greater high risk Performed By: #### L IPID, [address] eA ####[place] [address] [place] [address] [facility] Cholesterol in HDL [Mass/Vol] 40 mg/dL Normal 35-85 [facility] Comment on above: Result Comment: HDL CHOL ATP-III CLASSIFICATION Cardiovascular Risk HDL > or equal to 60 mg/dL LOW HDL < 40 mg/dL HIGH Performed By: #### L IPID, [address] eA ####[place] [address] [place] [id number] [facility] Cholesterol.total/Chol esterol in HDL [Mass ratio] 3.8 {ratio} Normal <5.0 [facility] Comment on above: Result Comment: PERF ORMED BY: [facility] [address] [place] [address] PATHOLOGIST LIBRARIAN SPECIALIST KIRSTIN ALFORD M.D. Performed By: #### L IPID, [address] eA ####[place] [id number] [facility] LDL Cholesterol,Calculated 77 mg/dL Normal 0-100 [facility] Comment on above: Result Comment: LDL ATP III CLASSIFICATION LDL less than 100 mg/dL Optimal LDL 100-129 mg/dL Near or above optimal LDL 130-159 mg/dL Borderline high LDL 160-189 mg/dL High LDL greater than 189 mg/dL Very high Performed By: #### L IPID, [address] eA ####[place] [address] [place] [id number] [facility] Triglyceride w/Reflex 170 mg/dL High 35-149 [facility] Comment on above: Result Comment: TRIG ATP III CLASSIFICATION TRIG less than 150 mg/dL Normal TRIG 150-199 mg/dL Borderline high TRIG 200-500 mg/dL High TRIG greater than 500 mg/dL Very high Standard traceable to the Center for Disease Conrtrol and Prevention (CDC) test method. Performed By: #### L IPID, [address] eA ####[facility] [id number] [address] VLDL CHOLESTEROL 34 mg/dL Normal [facility] Comment on above: Performed By: #### L IPID, A1C [facility] eA ####[facility] [id number] [place] [id number] [facility] MR head/brain wo conon 07-03 MR head/brain wo con [facility] Main [place] [address] [place] [address] MRI Report Signed Patient: Shefali Riggs MR#: [id number] 187 : 1970 Acct:[id number] Age/Sex: 52 / F ADM Date: 07/02/22 Loc: Room: [address] [place] [address] Type: ADM INOo Attending Dr: Savanna Orellana MD Copies to: MD Savanna Cervantes MD Ordering Provider: Shari Kang MD Date of Service: 07/03/22 MR/MR head/brain wo con: left sided numbness MR head/brain wo con 07/02/2022 9:57 PM SIGN AND SYMPTOMS: left sided numbness, heaviness of arms and legs, history of CVA PROTOCOL: Multiplanar multisequence MR images of the brain were obtained without IV contrast COMPARISON: CT and CT angiography from 07/02/2022 FINDINGS: Extra axial spaces: Age appropriate. Hemorrhage: None. Ventricular system: Within normal limits. Basal cisterns: Within normal limits and not effaced. Cerebral parenchyma: Ventricular and subcortical white matter T2 and T2 FLAIR hyperintense foci are noted suggesting chronic microvascular ischemic change. Midline shift: None.. Cerebellum: Within normal limits. Brainstem: Within normal limits. OTHER: Calvarium: Normal marrow signal. Vascular system: Satisfactory flow voids within the anterior and posterior circulation. Visualized Paranasal sinuses: Within normal limits. Visualized Orbits: Within normal limits. Visualized upper cervical spine: Within normal limits. Sella and skull base: Within normal limits. MR/MR head/brain wo con IMPRESSION: No acute intracranial pathology. Ventricular and subcortical white matter T2 and T2 FLAIR hyperintense foci are noted suggesting chronic microvascular ischemic change. Impression dictated by: Sami Leung M.D.07/03/2022 2:29 PM Dictation Location: [place] [address] Transcribed By: [facility] 07/03/221428 Dictated By: Sami Leung II, MD 07/03/221421 Signed By: 07/03/221428 Normal [facility] Serum or plasma high density lipoprotein (HDL) cholesterol measurementOrdered By: Shari Kang on 07-03-2022 Cholesterol in HDL [Mass/Vol] 40 mg/dL 35-85 [facility] Comment on above: HDL CHOL ATP-III CLA SSIFICATION Cardiovascular RiskHDL > or equal to 60 mg/dL LOWHDL < 40 mg/dL HIGH Serum or plasma total choles terol/high density lipoprotein (HDL) cholesterol mass ratOrdered By: Shari Kang on 07-03-2022 Cholesterol.total/Chol esterol in HDL [Mass ratio] 3.8 {ratio} <5.0 [facility] TSH DL <= 0.005 mIU/L QnOrde red By: Patricia Ch on 07-03-2022 TSH Qn 1.84 m[IU]/L 0.45-5.33 [facility] Thyroid Stimulating Hormoneo n 07-03-2022 TSH Qn 1.84 m[IU]/L Normal 0.45-5.33 [facility] Comment on above: Order Comment: Shefali Pizano labs to prev drawn labs per ALONZO [place] please Ty PER HARIS Result Comment: PERF ORMED BY: [facility] [address] [place] [address] PATHOLOGIST LIBRARIAN SPECIALIST KIRSTIN ALFORD M.D. Performed By: #### V [id number], TSH3 ####[facility] [id number] [place] [address] [facility] Triglyceride [Mass/volume] i n Serum or PlasmaOrdered By: Shari Kang on 07-03-2022 Triglyceride [Mass/Vol] 170 mg/dL 35-149 [facility] Comment on above: TRIG ATP III CLASSIF ICATIONTRIG less than 150 mg/dL NormalTRIG 150-199 mg/dL Borderline highTRIG 200-500 mg/dL High TRIG greater than 500 mg/dL Very highStandard traceable to the Center for Disease Conrtrol and Prevention (CDC) test method. Vit. B12/Folate Profileon Cobalamin (Vitamin B12) [Mass/Vol] 195 pg/mL Normal 180-914 [facility] Comment on above: Order Comment: jaycob gomes on Shefali Riggs labs to prev drawn labs per RN Dane please Ty PER HARIS Performed By: #### V [id number], TSH3 #### [address] Folate 21.0 ng/mL Normal >5.9 [facility] Comment on above: Order Comment: jaycob gomes on Shefali Riggs labs to prev drawn labs per ALONZO [place] please Ty PER HARIS Result Comment: Nissa te reference range: >5.9 ng/ml The WHO technical consultation on folate and vitamin b12 deficiencies has determined that folate concentrations less than 4 ng/ml are considered deficient. Performed By: #### V [id number], TSH3 #### [address] XR chest 1V portableon 07-03 XR chest 1V portable [facility] Main [place] [address] [place] [address] XRay Report Signed Patient: Shefali Riggs MR#: [id number] 187 : 1970 Acct:[id number] Age/Sex: 52 / F ADM Date: 07/02/22 Loc: Room: [address] [place] [address] Type: ADM IN Attending Dr: Savanna Orellana MD Copies to: MANAV Livingston MD Ordering Provider: Edward Christian PA-C Date of Service: 07/02/22 XR/XR chest 1V portable: Neuro Symptoms/Deficit Plain film chestsingle view HISTORY:Numbness and tingling of the LEFT arm and leg. COMPARISON:08/31/20 FINDINGS: Cardiac, mediastinal and hilar silhouettes are stable. No acute lung process, pleural effusion or pneumothorax identified. Bony structures are intact. XR/XR chest 1V portable IMPRESSION: No acute process. Impression dictated by: Yohannes Ascencio M.D.07/03/2022 8:02 AM Dictation Location: [place] [address] Transcribed By: CONNIE 07/03/22801 Dictated By: Yohannes Ascencio DO 07/03/22801 Signed By: 07/03/22801 Normal [facility] Activated partial thrombopla stin time (aPTT) in platelet poor plasma by coagulation aOrdered By: Edward Christian on 07-02-2022 aPTT Coag (PPP) [Time] 29.4 s 25.1-36.5 [facility] Automated erythrocytes count in urine sediment (number/area)Ordered By: Edward Christian on 07-02-2022 RBC Auto (Urine sed) [#/Area] 3-4 [HPF] 0-4 [facility] Automated leukocytes count i n urine sediment (number/area)Ordered By: Edward Christian on 07-02-2022 WBC Auto (Urine sed) [#/Area] 5-9 [HPF] 0-4 [facility] Basic Metabolic Panelon 06-12 Anion gap [Moles/Vol] 17.0 mmol/L High 6.0-15.0 [facility] Comment on above: Performed By: #### C BC, PT, HS TROP, CK, CKMB, BMP, PTT ####[facility] [id number] [place] [address] [facility] Calcium [Mass/Vol] 9.3 mg/dL Normal 8.2-10.2 [facility] Comment on above: Performed By: #### C BC, PT, HS TROP, CK, CKMB, BMP, PTT ####[facility] [id number] [place] [address] [facility] Chloride [Moles/Vol] 98 mmol/L Normal 95-114 [facility] Comment on above: Performed By: #### C BC, PT, HS TROP, CK, CKMB, BMP, PTT ####[facility] [place] [address] [place] CO2 [Moles/Vol] 23.7 mmol/L Normal 22.0-30.0 [facility] Comment on above: Performed By: #### C BC, PT, HS TROP, CK, CKMB, BMP, PTT ####[place] [address] [place] [id number] [facility] Creatinine [Mass/Vol] 0.87 mg/dL Normal 0.44-1.03 [facility] Comment on above: Performed By: #### C BC, PT, HS TROP, CK, CKMB, BMP, PTT ####[place] [id number] [address] [facility] 83.99 [facility] Comment on above: Result Comment: PERF ORMED BY: [facility] [address] [place] [address] PATHOLOGIST LIBRARIAN SPECIALIST KIRSTIN ALFORD M.D. Performed By: #### C BC, PT, HS TROP, CK, CKMB, BMP, PTT ####[address] Estimated GFR ( Denise > 60 [facility] Comment on above: Result Comment: GFR estimated reference range: According to KDOQI guidelines, <60 ml/min/1.73m2 is sufficient to diagnose a patient with chronic kidney disease. Performed By: #### C BC, PT, HS TROP, CK, CKMB, BMP, PTT ####[address] Estimated GFR (Non- Am > 60 [facility] Comment on above: Performed By: #### C BC, PT, HS TROP, CK, CKMB, BMP, PTT ####[place] [id number] [place] [id number] [facility] Glucose [Mass/Vol] 111 mg/dL High 70-100 [facility] Comment on above: Result Comment: [place] Glucose Reference Range is dependent on time and content of last meal. Glucose of more than 200 mg/dL in a nonstressed, ambulatory subject supports the diagnosis of Diabetes Mellitus. ADA recommended reference range Performed By: #### C BC, PT, HS TROP, CK, CKMB, BMP, PTT ####[facility] [place] [phone] [facility] Potassium [Moles/Vol] 3.7 mmol/L Normal 3.5-5.1 [facility] Comment on above: Performed By: #### C BC, PT, HS TROP, CK, CKMB, BMP, PTT ####[place] [id number] [place] [phone] [facility] Sodium [Moles/Vol] 135 mmol/L Low 136-146 [facility] Comment on above: Performed By: #### C BC, PT, HS TROP, CK, CKMB, BMP, PTT ####[place] [phone] [address] Urea nitrogen [Mass/Vol] 10 mg/dL Normal 9-23 [facility] Comment on above: Performed By: #### C BC, PT, HS TROP, CK, CKMB, BMP, PTT ####[place] [phone] [address] Basophils Auto (Bld) [#/Vol] Ordered By: Edward Christian on 07-02-2022 Basophils (Bld) [#/Vol] 0.1 10*3/uL 0.0-0.2 [facility] Basophils/100 WBC Auto (Bld) Ordered By: Edward Christian on 07-02-2022 Basophils/100 WBC (Bld) 0.8 % . [facility] Bilirubin Test strip Ql (U)O rdered By: Edward Christian on 07-02-2022 Bilirubin Ql (U) Negative Negative [facility] Color Auto (U)Ordered By: Malachi Christian on 07-02-2022 Color (U) Yellow Yellow [facility] Complete Blood Count Auto Di ffon 07-02-2022 Basophils (Bld) [#/Vol] 0.1 10*3/uL Normal 0.0-0.2 [facility] Comment on above: Result Comment: PERF ORMED BY: [facility] [address] [place] [id number] PATHOLOGIST LIBRARIAN SPECIALIST JIANLAN SUN M.D. Performed By: #### C BC, PT, HS TROP, CK, CKMB, BMP, PTT ####[address] Basophils/100 WBC (Bld) 0.8 % Normal . [facility] Comment on above: Performed By: #### C BC, PT, HS TROP, CK, CKMB, BMP, PTT ####[address] Eosinophils (Bld) [#/Vol] 0.7 10*3/uL High 0.0-0.45 [facility] Comment on above: Performed By: #### C BC, PT, HS TROP, CK, CKMB, BMP, PTT ####[address] Eosinophils/100 WBC (Bld) 6.4 % Normal . [facility] Comment on above: Performed By: #### C BC, PT, HS TROP, CK, CKMB, BMP, PTT ####[address] Erythrocyte distribution width (RBC) [Ratio] 13.6 % Normal 11.9-15.3 [facility] Comment on above: Performed By: #### C BC, PT, HS TROP, CK, CKMB, BMP, PTT ####[address] Hematocrit (Bld) [Volume fraction] 46.6 % High 34.0-46.4 [facility] Comment on above: Performed By: #### C BC, PT, HS TROP, CK, CKMB, BMP, PTT ####[address] Hemoglobin (Bld) [Mass/Vol] 15.9 g/dL High 11.8-15.4 [facility] Comment on above: Performed By: #### C BC, PT, HS TROP, CK, CKMB, BMP, PTT ####[address] Lymphocytes (Bld) [#/Vol] 3.3 10*3/uL Normal 1.00-4.8 [facility] Comment on above: Performed By: #### C BC, PT, HS TROP, CK, CKMB, BMP, PTT ####[address] Lymphocytes/100 WBC (Bld) 30.5 % Normal . [facility] Comment on above: Performed By: #### C BC, PT, HS TROP, CK, CKMB, BMP, PTT ####[address] MCH (RBC) [Entitic mass] 31.6 pg Normal 24.7-34.3 [facility] Comment on above: Performed By: #### C BC, PT, HS TROP, CK, CKMB, BMP, PTT ####[address] MCV (RBC) [Entitic vol] 92.3 fL Normal 80-100 [facility] Comment on above: Performed By: #### C BC, PT, HS TROP, CK, CKMB, BMP, PTT ####[address] Mean Corpuscular HGB Conc 34.2 g/dL Normal 32.0-35.0 [facility] Comment on above: Performed By: #### C BC, PT, HS TROP, CK, CKMB, BMP, PTT ####[address] Monocytes (Bld) [#/Vol] 1.5 10*3/uL High 0.0-0.8 [facility] Comment on above: Performed By: #### C BC, PT, HS TROP, CK, CKMB, BMP, PTT ####[address] Monocytes/100 WBC (Bld) 18.05 % Normal 0.00-20.00 [facility] Comment on above: Performed By: #### C BC, PT, HS TROP, CK, CKMB, BMP, PTT ####[place] [address] Monocytes/100 WBC (Bld) 14.0 % Normal . [facility] Comment on above: Performed By: #### C BC, PT, HS TROP, CK, CKMB, BMP, PTT ####[address] Neutrophils (Bld) [#/Vol] 5.2 10*3/uL Normal 1.8-7.7 [facility] Comment on above: Performed By: #### C BC, PT, HS TROP, CK, CKMB, BMP, PTT ####[address] Neutrophils/100 WBC (Bld) 48.3 % Normal . [facility] Comment on above: Performed By: #### C BC, PT, HS TROP, CK, CKMB, BMP, PTT ####[address] NRBC% 0.2 /100{WBC} Normal 0-0.5 [facility] Comment on above: Performed By: #### C BC, PT, HS TROP, CK, CKMB, BMP, PTT ####[address] Platelet mean volume (Bld) [Entitic vol] 8.4 fL Normal 6.3-10.7 [facility] Comment on above: Performed By: #### C BC, PT, HS TROP, CK, CKMB, BMP, PTT ####[address] Platelets (Bld) [#/Vol] 302 10*3/uL Normal 150-450 [facility] Comment on above: Performed By: #### C BC, PT, HS TROP, CK, CKMB, BMP, PTT ####[address] RBC (Bld) [#/Vol] 5.04 10*6/uL High 3.60-5.00 [facility] Comment on above: Performed By: #### C BC, PT, HS TROP, CK, CKMB, BMP, PTT ####[facility] [place], [place] [address] WBC (Bld) [#/Vol] 10.8 10*3/uL Normal 3.8-11.6 [facility] Comment on above: Performed By: #### C BC, PT, HS TROP, CK, CKMB, BMP, PTT ####[address] Creatine Kinaseon 07-02-2022 CK [Catalytic activity/Vol] 140 U/L Normal [facility] Comment on above: Performed By: #### C BC, PT, HS TROP, CK, CKMB, BMP, PTT ####[address] Creatine kinase [Enzymatic a ctivity/volume] in Serum or PlasmaOrdered By: Edward Christian on 07-02-2022 CK [Catalytic activity/Vol] 140 U/L [facility] Creatinine (Bld) [Mass/Vol]O rdered By: Shari Kang on 07-02-2022 Creatinine [Mass/Vol] 0.9 mg/dL 0.6-1.3 [facility] Comment on above: ER/ESD physician is notified/shown all ISTAT results.Critical values may be confirmed by laboratory testing ifdeemed necessary by ER attending doctor. Creatinine Kinase MBon 07-02 CK.MB [Mass/Vol] 1.9 ng/mL Normal 0.6-6.3 [facility] Comment on above: Performed By: #### C BC, PT, HS TROP, CK, CKMB, BMP, PTT ####[place] [id number] [facility] CKMB Relative Index 1.3 % Normal 0.00-2.50 [facility] Comment on above: Performed By: #### C BC, PT, HS TROP, CK, CKMB, BMP, PTT ####[address] Creatinine and Glomerular fi ltration rate.predicted panel (S/P/Bld)Ordered By: Edward Christian on 07-02-2022 Creatinine [Mass/Vol] 0.87 mg/dL 0.44-1.03 [facility] Dipstick and Microscopicon 0 07-02-2022 Appearance (U) Clear Normal Clear [facility] Comment on above: Order Comment: Name Collection Type:: Clean-Voided Midstream Performed By: #### C UU, ADDONUAPLUS #### [facility] [address] [place] [address] Bacteria,Urine None Seen Normal None Seen [facility] Comment on above: Order Comment: Name Collection Type:: Clean-Voided Midstream Performed By: #### C UU, ADDONUAPLUS #### [place] [address] [place] Bilirubin,Urine Negative Normal Negative [facility] Comment on above: Order Comment: Name Collection Type:: Clean-Voided Midstream Performed By: #### C UU, ADDONUAPLUS #### [address] Color (U) Yellow Normal Yellow [facility] Comment on above: Order Comment: Name Collection Type:: Clean-Voided Midstream Performed By: #### C UU, ADDONUAPLUS #### [address] Glucose Ql (U) Normal Normal Normal [facility] Comment on above: Order Comment: Name Collection Type:: Clean-Voided Midstream Performed By: #### C UU, ADDONUAPLUS #### [place] [address] [place] Hyaline Casts,Urine 0-8 Normal 0-8 [facility] Comment on above: Order Comment: Name Collection Type:: Clean-Voided Midstream Result Comment: PERF ORMED BY: [place] [address] PATHOLOGIST LIBRARIAN SPECIALIST KIRSTIN ALFORD M.D. Performed By: #### C UU, ADDONUAPLUS #### [address] Ketones Ql (U) Negative Normal Negative [facility] Comment on above: Order Comment: Name Collection Type:: Clean-Voided Midstream Performed By: #### C UU, ADDONUAPLUS #### [facility] [address] [place] [address] Leukocyte esterase Test strip Ql (U) 1+ High Negative [facility] Comment on above: Order Comment: Name Collection Type:: Clean-Voided Midstream Performed By: #### C UU, ADDONUAPLUS #### [facility] [address] [place] [address] [place] Nitrite,Urine Negative Normal Negative [facility] Comment on above: Order Comment: Name Collection Type:: Clean-Voided Midstream Performed By: #### C UU, ADDONUAPLUS #### [address] Occult Blood,Urine Negative Normal Negative [facility] Comment on above: Order Comment: Name Collection Type:: Clean-Voided Midstream Result Comment: PERF ORMED BY: [place] [address] PATHOLOGIST LIBRARIAN SPECIALIST KIRSTIN ALFORD M.D. Performed By: #### C UU, ADDONUAPLUS #### [facility] [address] [place] [address] pH (U) 5.5 [pH] Normal 5.0-9.0 [facility] Comment on above: Order Comment: Name Collection Type:: Clean-Voided Midstream Performed By: #### C UU, ADDONUAPLUS #### [facility] [address] [place] [address] [place] Protein,Urine Negative Normal Negative [facility] Comment on above: Order Comment: Name Collection Type:: Clean-Voided Midstream Performed By: #### C UU, ADDONUAPLUS #### [place] [address] [place] RBC,Urine 3-4 Normal 0-4 [facility] Comment on above: Order Comment: Name Collection Type:: Clean-Voided Midstream Performed By: #### C UU, ADDONUAPLUS #### [facility] [address] [place] [address] Specificy [place],Urine 1.003 Normal 1.001-1.03 0 [facility] Comment on above: Order Comment: Name Collection Type:: Clean-Voided Midstream Performed By: #### C UU, ADDONUAPLUS #### [address] Squamous Epithelial Cell,Urine 1-2 Normal 0-2 [facility] Comment on above: Order Comment: Name Collection Type:: Clean-Voided Midstream Performed By: #### C UU, ADDONUAPLUS #### [address] Urobilinogen,Urine Normal Normal Normal [facility] Comment on above: Order Comment: Name Collection Type:: Clean-Voided Midstream Performed By: #### C UU, ADDONUAPLUS #### [address] WBC,Urine 5-9 High 0-4 [facility] Comment on above: Order Comment: Name Collection Type:: Clean-Voided Midstream Performed By: #### C UU, ADDONUAPLUS #### [address] ECG 12 lead ECGon 07-02-2022 ECG 12 lead ECG [facility] Main [place] [address] [place] [address] Electrocardiograph Report Signed Patient: Shefali Riggs MR#: [id number] : 1970 Acct:[id number] Age/Sex: 52 / F ADM Date: 07/02/22 Loc: Room: [address] [place] [address] Type: DIS INOo Attending Dr: Savanna Orellana MD Ordering Provider: Edward Christian PA-C Date of Service: 07/02/22 ECG/ECG 12 lead ECG: Neuro Symptoms/Deficit Copies to: Test Reason : Blood Pressure : 186/103 mmHG Vent. Rate : 078 BPM Atrial Rate : 078 BPM P-R Int : 148 ms QRS Dur : 092 ms QT Int : 404 ms P-R-T Axes : 072 081 045 degrees QTc Int : 460 ms Normal sinus rhythm Confirmed by Micah VALDERRAMA DO ([id number]) on 07/02/2022 8:51:25 PM Referred By: Electronically Signed By:Micah VALDERRAMA DO Transcribed By: MUS Signed By Micah Valderrama DO 0 07/02/222050 Normal [facility] Eosinophils Auto (Bld) [#/Vo l]Ordered By: Edward Christian on 07-02-2022 Eosinophils (Bld) [#/Vol] 0.7 10*3/uL 0.0-0.45 [facility] Eosinophils/100 WBC Auto (Bl d)Ordered By: Edward Christian on 07-02-2022 Eosinophils/100 WBC (Bld) 6.4 % . [facility] Erythrocyte distribution wid th Auto (RBC) [Ratio]Ordered By: Edward Christian on 07-02-2022 Erythrocyte distribution width (RBC) [Ratio] 13.6 % 11.9-15.3 [facility] Estimated glomerular filtrat ion rate (GFR) non- AmericanOrdered By: Edward Christian on 07-02-2022 GFR/1.73 sq M.predicted among non-blacks MDRD (S/P/Bld) [Vol rate/Area] > 60 mL/Min [facility] Glucose Glucometer (BldC) [M ass/Vol]Ordered By: Edward Christian on 07-02-2022 Glucose [Mass/Vol] 140 mg/dL [facility] Comment on above: Random Glucose Refer ence Range is dependent on time and content of last meal. Glucose of more than 200 mg/dL in a nonstressed, ambulatory subject supports the diagnosis of Diabetes Mellitus. Glucose Poct Glucometerson 0 07-02-[address] [facility] Comment on above: Result Comment: Glu2 : WILL NOTIFY DR/RN Performed By: #### G LULS #### Point of Care testing , Commemt2 Cleaned Meter [facility] Comment on above: Result Comment: PERF ORMED BY: [facility] [address] [place] [address] PATHOLOGIST LIBRARIAN SPECIALIST KIRSTIN ALFORD M.D. Performed By: #### G LULS #### Point of Care testing , Glucose [Mass/Vol] 140 mg/dL Normal [facility] Comment on above: Result Comment: [place] Glucose Reference Range is dependent on time and content of last meal. Glucose of more than 200 mg/dL in a nonstressed, ambulatory subject supports the diagnosis of Diabetes Mellitus. Performed By: #### G LULS #### Point of Care testing , Hematocrit Auto (Bld) [Volum e fraction]Ordered By: Edward Christian on 07-02-2022 Hematocrit (Bld) [Volume fraction] 46.6 % 34.0-46.4 [facility] Hemoglobin [Mass/volume] in BloodOrdered By: Edward Christian on 07-02-2022 Hemoglobin (Bld) [Mass/Vol] 15.9 g/dL 11.8-15.4 [facility] ISTAT XRay CREon 07-02-2022 Creatinine [Mass/Vol] 0.9 mg/dL Normal 0.6-1.3 [facility] Comment on above: Result Comment: ER/E SD physician is notified/shown all ISTAT results. Critical values may be confirmed by laboratory testing if deemed necessary by ER attending doctor. Performed By: #### I SCRE #### [address] Point of Care testing , ISTAT GFR ( > 60 Normal [facility] Comment on above: Result Comment: GFR estimated reference range: According to KDOQI guidelines, <60 ml/min/1.73m2 is sufficient to diagnose a patient with chronic kidney disease. PERFORMED BY: [place] [address] PATHOLOGIST LIBRARIAN SPECIALIST KIRSTIN ALFORD M.D. Performed By: #### I SCRE #### [address] Point of Care testing , ISTAT GFR (Non- Am > 60 Normal [facility] Comment on above: Performed By: #### I SCRE #### [place] [id number] [place] Point of Care testing , Ketones Auto test strip (U) [Mass/Vol]Ordered By: Edward Christian on 07-02-2022 Ketones (U) [Mass/Vol] Negative Negative Fi [facility] Laboratory - CoagulationOrde red By: Edward Christian on 07-02-2022 PT Coag (PPP) [Time] 10.8 s 9.0-12.9 [facility] - UrinalysisOrder ed By: Edward Christian on 07-02-2022 Hyaline casts LM Ql (Urine sed) 0-8 [LPF] 0-8 [facility] Leukocytes [#/volume] correc dario for nucleated erythrocytes in Blood by Automated counOrdered By: Edward Christian on 07-02-2022 WBC corrected for nucl RBC Auto (Bld) [#/Vol] 10.8 10*3/uL 3.8-11.6 [facility] Lymphocytes Auto (Bld) [#/Vo l]Ordered By: Edward Christian on 07-02-2022 Lymphocytes (Bld) [#/Vol] 3.3 10*3/uL 1.00-4.8 [facility] Lymphocytes/100 WBC Auto (Bl d)Ordered By: Edward Christian on 07-02-2022 Lymphocytes/100 WBC (Bld) 30.5 % . [facility] MCH Auto (RBC) [Entitic mass ]Ordered By: Edward Christian on 07-02-2022 MCH (RBC) [Entitic mass] 31.6 pg 24.7-34.3 [facility] MCHC Auto (RBC) [Mass/Vol]Or dered By: Edward Christian on 07-02-2022 MCHC (RBC) [Mass/Vol] 34.2 g/dL 32.0-35.0 [facility] MCV Auto (RBC) [Entitic vol] Ordered By: Edward Christian on 07-02-2022 MCV (RBC) [Entitic vol] 92.3 fL 80-100 [facility] Monocyte distribution width [Entitic volume] in Blood by AutomatedOrdered By: Edward Christian on 07-02-2022 Monocyte distribution width Auto (Bld) [Entitic vol] 18.05 % 0.00-20.00 [facility] Monocytes Auto (Bld) [#/Vol] Ordered By: Edward Christian on 07-02-2022 Monocytes (Bld) [#/Vol] 1.5 10*3/uL 0.0-0.8 [facility] Monocytes/100 WBC Auto (Bld) Ordered By: Edward Christian on 07-02-2022 Monocytes/100 WBC (Bld) 14.0 % . [facility] Neutrophils Auto (Bld) [#/Vo l]Ordered By: Edward Christian on 07-02-2022 Neutrophils (Bld) [#/Vol] 5.2 10*3/uL 1.8-7.7 [facility] Neutrophils/100 WBC Auto (Bl d)Ordered By: Edward Christian on 07-02-2022 Neutrophils/100 WBC (Bld) 48.3 % . [facility] Nitrite Test strip Ql (U)Ord ered By: Edward Christian on 07-02-2022 Nitrite Ql (U) Negative Negative [facility] No Panel InformationOrdered By: Shari Kang on 07-02-2022 POC Estimated GFR > 60 [facility] Comment on above: GFR estimated refere nce range: According to KDOQI guidelines, <60 ml/min/1.73m2 is sufficient to diagnose a patient with chronic kidney disease. POC Estimated GFR Non- Amer > 60 [facility] No Panel InformationOrdered By: Edward Christian on 07-02-2022 Estimated GFR () > 60 mL/Min [facility] Comment on above: GFR estimated refere nce range: According to KDOQI guidelines, <60 ml/min/1.73m2 is sufficient to diagnose a patient with chronic kidney disease. Pharmacy Creatinine Clearance (Chem 83.99 [facility] Bedside Glucose #2 Comment Cleaned meter [facility] Bedside Glucose Comment See comment [facility] Comment on above: Glu2: WILL NOTIFY /RN Nucleated erythrocytes [Pres ence] in Blood by Automated countOrdered By: Edward Christian on 07-02-2022 Nucleated RBC Auto Ql (Bld) 0.2 /100{WBC} 0-0.5 [facility] Partial Thromboplastin Timeo n 07-02-2022 aPTT Coag (Bld) [Time] 29.4 s Normal 25.1-36.5 Fi [facility] Comment on above: Result Comment: PERF ORMED BY: [facility] [address] [place] [address] PATHOLOGIST LIBRARIAN SPECIALIST KIRSTIN ALFORD M.D. Performed By: #### C BC, PT, HS TROP, CK, CKMB, BMP, PTT ####[facility] [address] [facility] [place] [address] [facility] Platelet mean volume Auto (B ld) [Entitic vol]Ordered By: Edward Christian on 07-02-2022 Platelet mean volume (Bld) [Entitic vol] 8.4 fL 6.3-10.7 [facility] Platelet poor plasma interna tional normalized ratio (INR) by coagulation assay (relatOrdered By: Edward Christian on 07-02-2022 INR Coag (PPP) [Relative time] 0.9 {INR} [facility] Comment on above: INR Therapeutic Rang e A) Pre- and Peroperative OAT started two weeks before surgery. NOT HIP SURGERY: 1.5 - 2.5 HIP SURGERY: 2 - 3B) Primary and secondary prevention of venous THROMBOSIS: 2 - 3C) Active venous thrombosis, pulmonary embolismand prevention of recurrent venous thrombosis: 2 - 3D) Prevention of arterial thromboembolismincluding patients with mechanical heart valves: 3 - 4.5 Platelets Auto (Bld) [#/Vol] Ordered By: Edward Christian on 07-02-2022 Platelets (Bld) [#/Vol] 302 10*3/uL 150-450 [facility] Protein Auto test strip (U) [Mass/Vol]Ordered By: Edward Christian on 07-02-2022 Protein (U) [Mass/Vol] Negative Negative Fi [facility] Prothrombin Time INRon 07-02 INR Coag (PPP) [Relative time] 0.9 {INR} Normal [facility] Comment on above: Result Comment: INR Therapeutic Range A) Pre- and Peroperative OAT started two weeks before surgery. NOT HIP SURGERY: 1.5 - 2.5 HIP SURGERY: 2 - 3 B) Primary and secondary prevention of venous THROMBOSIS: 2 - 3 C) Active venous thrombosis, pulmonary embolism and prevention of recurrent venous thrombosis: 2 - 3 D) Prevention of arterial thromboembolism including patients with mechanical heart valves: 3 - 4.5 Performed By: #### C BC, PT, HS TROP, CK, CKMB, BMP, PTT ####[facility] [id number] [place] [id number] [facility] PT Coag (PPP) [Time] 10.8 s Normal 9.0-12.9 [facility] Comment on above: Performed By: #### C BC, PT, HS TROP, CK, CKMB, BMP, PTT ####[facility] [id number] [place] [id number] [facility] RBC Auto (Bld) [#/Vol]Ordere d By: Edward Christian on 07-02-2022 RBC (Bld) [#/Vol] 5.04 10*6/uL 3.60-5.00 [facility] Serum or plasma anion gap de terminationOrdered By: Edward Christian on 07-02-2022 Anion gap [Moles/Vol] 17.0 mmol/L 6.0-15.0 [facility] Serum or plasma calcium priya urement (mass/volume)Ordered By: Edward Christian on 07-02-2022 Calcium [Mass/Vol] 9.3 mg/dL 8.2-10.2 [facility] Serum or plasma chloride arielle surement (moles/volume)Ordered By: Edward Christian on 07-02-2022 Chloride [Moles/Vol] 98 mmol/L 95-114 [facility] Serum or plasma creatine kin ase MB (CKMB)/total creatine kinase (CK) ratio by calculaOrdered By: Edward Christian on 07-02-2022 CK.MB Calc [Catalytic fraction] 1.3 % 0.00-2.50 [facility] Serum or plasma creatine kin ase MB measurement (mass/volume)Ordered By: Edward Christian on 07-02-2022 CK.MB [Mass/Vol] 1.9 ng/mL 0.6-6.3 [facility] Serum or plasma glucose priya urement (mass/volume)Ordered By: Edward Christian on 07-02-2022 Glucose [Mass/Vol] 111 mg/dL 70-100 [facility] Comment on above: ADA recommended refe rence rangeRandom Glucose Reference Range is dependent on time and content of last meal. Glucose of more than 200 mg/dL in a nonstressed, ambulatory subject supports the diagnosis of Diabetes Mellitus. Serum or plasma potassium me asurement (moles/volume)Ordered By: Edward Christian on 07-02-2022 Potassium [Moles/Vol] 3.7 mmol/L 3.5-5.1 [facility] Serum or plasma sodium measu rement (moles/volume)Ordered By: Edward Christian on 07-02-2022 Sodium [Moles/Vol] 135 mmol/L 136-146 [facility] Serum or plasma total carbon dioxide measurement (moles/volume)Ordered By: Edward Christian on 07-02-2022 CO2 [Moles/Vol] 23.7 mmol/L 22.0-30.0 [facility] Serum or plasma urea nitroge n measurement (mass/volume)Ordered By: Edward Christian on 07-02-2022 Urea nitrogen [Mass/Vol] 10 mg/dL - [facility] Specific gravity Auto test s trip (U) [Rel density]Ordered By: Edward Christian on 07-02-2022 Specific gravity (U) [Rel density] 1.003 1.001-1.03 0 [facility] Squamous epithelial cells de tection in urine sediment by light microscopyOrdered By: Edward Christian on 07-02-2022 Epithelial cells.squamous LM Ql (Urine sed) 1-2 [HPF] 0-2 [facility] Troponin I High Sensitivityo n 07-02-2022 Troponin I High Sensitivity 4 pg/mL Normal 0-15 [facility] Comment on above: Result Comment: PERF ORMED BY: [facility] [address] [place] [address] PATHOLOGIST LIBRARIAN SPECIALIST KIRSTIN ALFORD M.D. Performed By: #### C BC, PT, HS TROP, CK, CKMB, BMP, PTT ####[facility] [id number] [place] [address] [facility] Troponin I.cardiac [Mass/vol ume] in Serum or Plasma by High sensitivity methodOrdered By: Edward Christian on 07-02-2022 Troponin I.cardiac High sensitivity method [Mass/Vol] 4 pg/mL 0-15 [facility] Urine Cultureon 07-02-2022 Bacteria identified Cx Nom (U) 20,000 colonies/ml mixed bacterial skin contaminants 2 Days PERFORMED BY: [place] [address] PATHOLOGIST LIBRARIAN SPECIALIST KIRSTIN ALFORD M.D. Normal [facility] Comment on above: Performed By: #### C UU, ADDONUAPLUS #### [address] Urine bacteria detection by automated methodOrdered By: Edward Christian on 07-02-2022 Bacteria Auto Ql (U) None seen None Seen [facility] Urine clarity by refractomet ry automatedOrdered By: Edward Christian on 07-02-2022 Clarity Refractometry automated (U) Clear Clear [facility] Urine culture routineOrdered By: Edward Christian on 07-02-2022 Bacteria identified Cx Nom (U) 2 Days [facility] Urine glucose measurement by automated test strip (mass/volume)Ordered By: Edward Christian on 07-02-2022 Glucose Auto test strip (U) [Mass/Vol] Normal mg/dL Normal [facility] Urine hemoglobin detection b y automated test stripOrdered By: Edward Christian on 07-02-2022 Hemoglobin Auto test strip Ql (U) Negative Negative [facility] Urine leukocyte esterase det ection by automated test stripOrdered By: Edward Christian on 07-02-2022 Leukocyte esterase Auto test strip Ql (U) 1+ Negative [facility] Urobilinogen Auto test strip (U) [Mass/Vol]Ordered By: Edward Christian on 07-02-2022 Urobilinogen (U) [Mass/Vol] Normal mg/dL Normal [facility] WBC Auto (Bld) [#/Vol]Ordere d By: Edward Christian on 07-02-2022 WBC (Bld) [#/Vol] 10.8 10*3/uL 3.8-11.6 [facility] pH Auto test strip (U)Ordere d By: Edward Christian on 07-02-2022 pH (U) 5.5 [pH] 5.0-9.0 [facility] Physician Referralon Physician Referral [id number] Normal [facility] PAP ACOG PANEL 2: 21 to 29on 04-28-2022 . . Normal [facility] Comment on above: Result Comment: Perf ormed at: WB Performed By: #### [id number] #### [facility] [address] [address] [address] Alley Ochoa Age Gdln ACOG Testing Normal [facility] Comment on above: Performed By: #### [id number] #### [facility] [address] [address] [address] Alley Ochoa DIAGNOSIS: Comment Abnormal [facility] Comment on above: Result Comment: EPIT HELIAL CELL ABNORMALITY. LOW GRADE SQUAMOUS INTRAEPITHELIAL LESION (LSIL). Performed at: WB Performed By: #### [id number] #### [facility] [address] [address] [address] Alley Ochoa Electronically signed by: Comment Normal [facility] Comment on above: Result Comment: Bon Padgett MD, Pathologist Performed at: WB Performed By: #### [id number] #### [facility] [address] [address] [address] Alley Ochoa HPV Aptima Positive Abnormal Negative [facility] Comment on above: Result Comment: This nucleic acid amplification test detects fourteen high-risk HPV types (16,18,31,33,35,39,45,51,52,56,58,59,66,68) without differentiation. Performed at: =G Performed By: #### 4 [id number] #### [facility] [address] [address] [address] Alley Ochoa HPV Genotype Reflex Comment Normal [facility] Comment on above: Result Comment: Crit eria not met, HPV Genotype not performed. Performed at: WB Performed By: #### [id number] #### [facility] [address] [place] [address] Dr. Alley Ochoa Methodology: Comment [facility] Comment on above: Result Comment: This liquid based ThinPrep(R) pap test was screened with the use of an image guided system. Performed at: WB Performed By: #### [id number] #### [facility] [address] [place] [address] Dr. Alley Ochoa Note: Comment Normal [facility] Comment on above: Result Comment: The Pap smear is a screening test designed to aid in the detection of premalignant and malignant conditions of the uterine cervix. It is not a diagnostic procedure and should not be used as the sole means of detecting cervical cancer. Both false-positive and false-negative reports do occur. . Performed at: WB Performed By: #### [id number] #### [facility] [address] [place] [address] Dr. Alley Ochoa Pathologist Provided ICD10 Comment Normal [facility] Comment on above: Result Comment: [id number] Performed at: WB Performed By: #### [id number] #### [facility] [address] [place] [address] Dr. Alley Ochoa Performed by: Comment Normal [facility] Comment on above: Result Comment: Demi Pelaez, Custom Tailor Performed at: WB Performed By: #### [id number] #### [facility] [address] [place] [address] Dr. Alley Ochoa Specimen adequacy: Comment Normal [facility] Comment on above: Result Comment: Sati sfactory for evaluation. No endocervical component is identified. Performed at: WB Performed By: #### 4 [id number] #### [facility] [address] [place] [address] Dr. Alley Ochoa COVID/FLU RT-PCRon SARS-CoV-2 (COVID-19) RNA SCOTTY+probe Ql (Unsp spec) Negative [employer] Other COVID/FLU RT-PCR Negative [employer] Other Quick Strepon 04-14-2022 S. pyogenes Org specific cx Ql (Throat) Negative [employer] Other Quick Strep [employer] Other Cardiac Stress Teston 2021 Cardiac Stress Test [facility] [address] [place] [address], [address] [place] [address] Exercise Stress Test Patient Name: SHEFALI Ordering Physician: [id number] Jerome Pelaez NP [place] Study Date: 02/22/2022 Reading Physician: [id number] Rosio Riojas MD MRN/PID: [id number] Supervising Physician: Jorge A Riojas MD Accession/Order#: [id number] Referring Physician: JEROME PELAEZ Date of : 1970 PCP: Osiel Pettit MD Gender: F Fellow: Height: 162.56 cm Nurse: Zuleyma Bell RN Weight: 74.84 kg Behavioral Health Associate: MANINDER BSA: 1.80 m2 Technologist: BMI: 28.32 kg/m2 Additional Staff: Age: 52 years cc report to: Patient Location: cc report to: [id number] Jerome Pelaez NP Study Type: Cardiac Stress Test Diagnosis/ICD: I25.10-Atherosclerotic heart disease Indication: Pre-Op Evaluation Procedure/CPT: Stress Test Interpretation-40599; Stress Test Supervision-[id number] Falls Risk: Low: Patient has low risk for sustaining a fall; environmental safety interventions in place. Study Details: Correct procedure and correct patient verified verbally. Patient Performance: The peak heart rate achieved was 148 bpm, which was 88 % of the age predicted target heart rate of 168 bpm. The resting blood pressure was 118/80 mmHg with a heart rate of 67 bpm. The standing blood pressure was 114/78 mmHg with a heart rate of 70 bpm. The patient's functional capacity was above average. The patient developed dyspnea during the stress exam. The symptoms resolved with rest. The blood pressure response was normal. The test was terminated due to: dyspnea. Baseline ECG: Resting ECG showed normal sinus rhythm. Normal sinus rhythm. Stress ECG: Stress ECG showed sinus tachycardia. Stress Stage Data: + +---+-- ----+-------+ HR Sys BP Rivera BP + +---+-- ----+-------+ Baseline Resting 67 118 80 + +---+-- ----+-------+ Baseline Standing 70 114 78 + +---+-- ----+-------+ Stage I 108 138 76 + +---+-- ----+-------+ Stage II 137 164 78 + +---+-- ----+-------+ Stage III 148 172 80 + +---+-- ----+-------+ Recovery ECG: The heart rate recovery was normal. + +---+------+ -------+ HR Sys BP Rivera BP + +---+------+ -------+ Recovery I 148 178 82 + +---+------+ -------+ Recovery II 139 172 76 + +---+------+ -------+ Recovery III 102 162 78 + +---+------+ -------+ Recovery IV 97 132 80 + +---+------+ -------+ Recovery V 91 120 82 + +---+------+ -------+ Summary: 1. Normal graded exercise stress test without diagnostic ST-T changes for ischemia. 2. No provoked chest pain or arrhythmia. 3. Appropriate hemodynamic response to exercise. 4. Good exercise tolerance. 5. Normal heart rate recovery phase. 6. Clinically negative study. 7. The adequate level of stress was achieved. [id number] Rosio Riojas MD Electronically signed on 02/22/2022 at 4:37:00 PM Final Normal [facility] Office Visit (Cardiology)on 02-01-2022 Follow-up visit Diagnoses/Problems Assessed Atherosclerosis of coronary artery of [place] heart without angina pectoris (414.01) (I25.10) Jun 2019 pCX PCI.KURT pMarg 50-70% LAD normal RCA patent stent December 2020 MPI no ischemia Normal cardiac ejection fraction Jun 2019 Cath LVEF 65% PSVT (paroxysmal supraventricular tachycardia) (427.0) (I47.1) quiescent on beta-jason Hyperlipidemia (272.4) (E78.5) Praluent Labs pending from today Current every day smoker (305.1) (F17.200) SMOKES ABOUT 1 PPD 1 pack per day In past was successful with smoking retreat, chantix side effects, no benefit from patches, tried hypnosis Continued every day tobacco use. Have reviewed the negative cardiovascular impact of nicotine. Continues to decline pharmacological assistance. BMI 28.0-28.9,adult (V85.24) (Z68.28) Reviewed the merits of healthy lifestyle choices on overall cardiovascular health. Orders Atherosclerosis of coronary artery of [place] heart without angina pectoris Start: Furosemide 20 MG Oral Tablet; Take one tablet daily as needed Cardiac Stress Test; Status:Hold For - Scheduling; Requested for:[id number]; BMI 28.0-28.9,adult Healthy Weight Tips; Status:Complete; Done: 01Feb2022 SocHx: Current every day smoker Tobacco Use Screening; Status:Complete; Done: [id number] Tobacco Use Screening; Status:Complete; Done: [id number] Patient Instructions Please bring all medicines, vitamins, and herbal supplements with you when you come to the office. Prescriptions will not be filled unless you are compliant with your follow up appointments or have a follow up appointment scheduled as per instruction of your physician. Refills should be requested at the time of your visit PLAN: Through informed decision making process incorporating patients unique circumstances, the following treatment plan will be initiated: 1. Prescription drug management of cardiovascular medication for efficacy, adherence to treatment, side effect assessment and polypharmacy. Current treatment clinically warranted and to continue without modifications. 2. GXT (clearance for liposuction) 3. Return for follow-up; in the interim, contact the office if new symptoms arise. Dr. Marshall in 6 months 4. Lasix 20mg daily as needed for edema Discussed the dynamic nature of coronary artery disease and the importance of seeking medical attention if new symptoms arise. Chief Complaint Routine f/u doing ok SHEFALI RIGGS is being seen for a 6 month follow-up of chest pain, dyslipidemia and hypertension. Patient is ambulatory with steady gait. Last evaluated in clinic by Dr. Marshall Jan 2021. A chronological chart review from last in clinic evaluation was completed. She is considering laser liposuction - Dr. Marshall recommended GXT prior. Compared to last cardiovascular evaluation, patient reports 'doing ok' Patient denies any hospitalizations or significant changes to interval medical history since last office follow-up. Patient attends to own ADLs and functional ADLs. Patient daily activity includes: sedentary, no routine exercise Patient ambulate in from parking lot without concerns. Patient denies change to exercise tolerance or functional capacity since last evaluation. Prior Angina: RS pain, nausea, diaphoresis - no recurrent symptoms Last NTG use: none Current cardiovascular concerns: Wt gain, swelling, fatigue and 'feeling hot' No documented wt. gain on our scales Has had routine labs. History of Present Illness The patient states she has been generally doing well since the last visit. Comorbid Illnesses: hypertension and hyperlipidemia. Symptoms: denies chest pain at rest, denies exertional chest pain, denies dyspnea, stable fatigue, stable exercise intolerance, denies palpitations, denies edema, denies orthopnea, denies dizziness and denies orthostatic dizziness. Associated symptoms: no syncope. Her symptoms do not limit her activities. Disease Monitoring: The patient has had a stable weight. Medications: the patient is adherent with her medication regimen. She denies medication side effects. Current Meds Medication NameInstruction Aspirin 81 MG Oral Tablet Delayed ReleaseTAKE 2 TABLET DAILY DIRECTED. Metoprolol Tartrate 25 MG Oral TabletTAKE 1 TABLET TWICE DAILY. Praluent 75 MG/ML Subcutaneous Solution Auto-injectorINJECT 75MG EVERY 2 WEEKS UNDER THE SKIN Spironolactone 100 MG Oral TabletTAKE 1 TABLET BY MOUTH EVERY DAY Allergies Medication Penicillins Recorded By: Libby Winters; 06/30/2021 1:35:28 PM hives Statins Recorded By: Libby Winters; 06/30/2021 1:35:28 PM myalgia Social History Problems Caffeine use (V49.89) (Z78.9) Current every day smoker (305.1) (F17.200) SMOKES ABOUT 1 PPD No illicit drug use Social alcohol use (V49.89) (Z78.9) Review of Systems Constitutional: feeling tired. Cardiovascular: no chest pain, no palpitations and no lower extremity edema. Respiratory: no sh (more content not included)... Normal [employer] Tobacco Screening.on 022 Adult depression screening assessment No [facility] 250 DO Work Phone: Tobacco use status [facility]PH[facility] a) Yes [facility] [facility] 250 DO Work Phone: Tobacco Screening. Yes [facility] 250 DO Work Phone: CBC AUTO DIFFon 01-31-2022 BASO # 0.1 103/ul Normal 0.0-0.1 [facility] Comment on above: Performed By: #### C BC #### [facility] [address] [place] [address] Dr. Alley Ochoa Basophils/100 WBC (Bld) 0.6 % Normal 0.2-2.0 [facility] Comment on above: Performed By: #### C BC #### [facility] [address] [place] [address] Dr. Alley Ochoa EO # 0.5 103/ul Normal 0.0-0.7 [facility] Comment on above: Performed By: #### C BC #### [facility] [address] [place] [address] Dr. Alley Ochoa Eosinophils/100 WBC (Bld) 4.5 % Normal 0.9-7.0 [facility] Comment on above: Performed By: #### C BC #### [facility] [address] [place] [address] Dr. Alley Ochoa Erythrocyte distribution width (RBC) [Ratio] 13.2 % Normal 11.0-15.0 [facility] Comment on above: Performed By: #### C BC #### [facility] [address] [place] [address] Dr. Alley Ochoa Hematocrit (Bld) [Volume fraction] 47.2 % Normal 36.0-48.0 [facility] Comment on above: Performed By: #### C BC #### [facility] [address] [place] [address] Dr. Alley Ochoa Hemoglobin (Bld) [Mass/Vol] 15.9 g/dL Normal 12.0-16.0 [facility] Comment on above: Performed By: #### C BC #### [facility] [address] [place] [address] Dr. Alley Ochoa IG # 0.06 10e3/ul Critically high 0.00-0.03 [facility] Comment on above: Performed By: #### C BC #### [facility] [address] [place] [address] Dr. Alley Ochoa IG % 0.5 % Normal 0.0-0.5 [facility] Comment on above: Performed By: #### C BC #### [facility] [address] [place] [address] Dr. Alley Ochoa LYMPH # 2.0 103/ul Normal 1.2-3.8 [facility] Comment on above: Performed By: #### C BC #### [facility] [address] [place] [address] Dr. Alley Ochoa Lymphocytes/100 WBC (Bld) 17.8 % Critically low 20.5-60.0 [facility] Comment on above: Performed By: #### C BC #### [facility] [address] [place] [address] Dr. Alley Ochoa MANUAL DIFF REQ NO Normal [facility] Comment on above: Performed By: #### C BC #### [facility] [address] [place] [address] Dr. Alley Ochoa MCH (RBC) [Entitic mass] 31.2 pg Normal 26.7-34.0 [facility] Comment on above: Performed By: #### C BC #### [facility] [address] [place] [address] Dr. Alley Ochoa MCHC (RBC) [Mass/Vol] 33.7 g/dL Normal 29.9-35.2 [facility] Comment on above: Performed By: #### C BC #### [facility] [address] [place] [address] Dr. Alley Ochoa MCV (RBC) [Entitic vol] 92.5 fL Normal 81.0-99.0 [facility] Comment on above: Performed By: #### C BC #### [facility] [address] [place] [address] Dr. Alley Ochoa MONO # 1.3 103/ul Critically high 0.3-0.8 [facility] Comment on above: Performed By: #### C BC #### [facility] [address] [place] [address] Dr. Alley Ochoa Monocytes/100 WBC (Bld) 11.5 % Normal 1.7-12.0 [facility] Comment on above: Performed By: #### C BC #### [facility] [address] [place] [address] Dr. Alley Ochoa NEUT # 7.2 103/ul Critically high 1.4-6.5 [facility] Comment on above: Performed By: #### C BC #### [facility] [address] [place] [address] Dr. Alley Ochoa Neutrophils/100 WBC (Bld) 65.1 % Normal 43.0-75.0 [facility] Comment on above: Performed By: #### C BC #### [facility] [address] [place] [address] Dr. Alley Ochoa Platelet mean volume (Bld) [Entitic vol] 10.0 fL Normal 9.5-13.5 [facility] Comment on above: Performed By: #### C BC #### [facility] [address] [place] [address] Dr. Alley Ochoa PLT 273 103/ul Normal 150-450 [facility] Comment on above: Performed By: #### C BC #### [facility] [address] [place] [address] Dr. Alley Ochoa RBC 5.10 106/ul Normal 4.20-5.40 [facility] Comment on above: Performed By: #### C BC #### [facility] [address] [place] [address] Dr. Alley Ohcoa WBC 11.0 103/ul Normal 4.0-11.0 [facility] Comment on above: Performed By: #### C BC #### [facility] [address] [place] [address] Dr. Alley Ochoa GLYCOHEMOGLOBIN A1Con 2021 ADA RECOMMENDATION SEE BELOW Normal [facility] Comment on above: Result Comment: ADA RECOMMENDED LIMIT 4.0 - 6.0 ADA THERAPEUTIC TARGET < 7.0 ACTION SUGGESTED > 7.0 Performed By: #### A 1C #### [facility] [address] [place] [address] Dr. Alley Ohcoa Glucose [Mass/Vol] 120 mg/dL Normal [facility] Comment on above: Performed By: #### A 1C #### [facility] [address] [place] [address] Dr. Alley Ochoa HbA1c (Bld) [Mass fraction] 5.8 % Normal 4.5-6.2 [facility] Comment on above: Performed By: #### A 1C #### [facility] [address] [place] [address] Dr. Alley Ochoa LIPID PROFILEon 01-31-2022 CHOL-HDL RATIO NORM SEE BELOW Normal [facility] Comment on above: Result Comment: 3.3 - 4.4 LOW RISK 4.4 - 7.1 AVERAGE RISK 7.1 - 11.0 MODERATE RISK >11.0 HIGH RISK Performed By: #### C MP, LIPID #### [facility] [address] [address] [address] Alley Ochoa Cholesterol [Mass/Vol] 156 mg/dL Normal <=200 [facility] Comment on above: Performed By: #### C MP, LIPID #### [facility] [address] [address] [address] Alley Ochoa Cholesterol in HDL [Mass/Vol] 42 mg/dL Normal 40-60 [facility] Comment on above: Performed By: #### C MP, LIPID #### [facility] [address] [address] [address] Alley Ochoa Cholesterol in LDL [Mass/Vol] 65.0 mg/dL Normal [facility] Comment on above: Performed By: #### C MP, LIPID #### [facility] [address] [place] [address] Dr. Alley Ochoa Cholesterol.total/Chol esterol in HDL [Mass ratio] 3.7 {ratio} Normal [facility] Comment on above: Performed By: #### C MP, LIPID #### [facility] [address] [address] [address] Alley Ochoa HDL NORMAL > or = 60 mg/dl - LO W CARDIOVASCULAR RISK <40 mg/dl - HIGH CARDIOVASCULAR RISK Normal [facility] Comment on above: Performed By: #### C MP, LIPID #### [facility] [address] [address] [address] Alley Ochoa LDL CALC NORMAL SEE BELOW Normal [facility] Comment on above: Result Comment: <100 mg/dl OPTIMAL 100 - 129 mg/dl NEAR OR ABOVE OPTIMAL 130 - 159 mg/dl BORDERLINE HIGH 160 - 189 mg/dl HIGH >190 mg/dl VERY HIGH Performed By: #### C MP, LIPID #### [facility] [address] [address] [address] Alley Ochoa Triglyceride [Mass/Vol] 245 mg/dL Critically high <=150 [facility] Comment on above: Performed By: #### C MP, LIPID #### [facility] [address] [address] [address] Alley Ochoa VLDL CALC 49.0 mg/dL Normal [facility] Comment on above: Performed By: #### C MP, LIPID #### [facility] [address] [place] [address] Dr. Alley Ochoa PROF 14(COMP METB)on 022 Albumin [Mass/Vol] 3.8 g/dL Normal 3.4-5.0 [facility] Comment on above: Performed By: #### C MP, LIPID #### [facility] [address] [place] [address] Dr. Alley Ochoa Albumin/Globulin [Mass ratio] 0.9 {ratio} Normal [facility] Comment on above: Performed By: #### C MP, LIPID #### [facility] [address] [place] [address] Dr. Alley Ochoa ALP [Catalytic activity/Vol] 92 U/L Normal 46-116 [facility] Comment on above: Performed By: #### C MP, LIPID #### [facility] [address] [place] [address] Dr. Alley Ochoa ALT [Catalytic activity/Vol] 35 U/L Normal 14-59 [facility] Comment on above: Performed By: #### C MP, LIPID #### [facility] [address] [place] [address] Dr. Alley Ochoa Anion gap [Moles/Vol] 13.5 mmol/L Normal [facility] Comment on above: Performed By: #### C MP, LIPID #### [facility] [address] [place] [address] Dr. Alley Ochoa AST [Catalytic activity/Vol] 28 U/L Normal 15-37 [facility] Comment on above: Performed By: #### C MP, LIPID #### [facility] [address] [place] [address] Dr. Alley Ochoa Bilirubin [Mass/Vol] 0.6 mg/dL Normal 0.2-1.0 [facility] Comment on above: Performed By: #### C MP, LIPID #### [facility] [address] [place] [address] Dr. Alley Ochoa Calcium [Mass/Vol] 9.1 mg/dL Normal 8.5-10.1 [facility] Comment on above: Performed By: #### C MP, LIPID #### [facility] [address] [place] [address] Dr. Alley Ochoa Chloride [Moles/Vol] 101 mmol/L Normal 98-107 [facility] Comment on above: Performed By: #### C MP, LIPID #### [facility] [address] [place] [address] Dr. Alley Ochoa CO2 [Moles/Vol] 26.2 mmol/L Normal 21.0-32.0 [facility] Comment on above: Performed By: #### C MP, LIPID #### [facility] [address] [place] [address] Dr. Alley Ochoa Creatinine [Mass/Vol] 0.80 mg/dL Normal 0.55-1.02 [facility] Comment on above: Performed By: #### C MP, LIPID #### [facility] [address] [place] [address] Dr. Alley Ochoa EGFR-AF BENINESE >60 Normal >=60 [facility] Comment on above: Performed By: #### C MP, LIPID #### [facility] [address] [place] [address] Dr. Alley Ochoa EGFR-NON AF BENINESE >60 Normal >=60 [facility] Comment on above: Performed By: #### C MP, LIPID #### [facility] [address] [place] [address] Dr. Alley Ochoa Globulin (S) [Mass/Vol] 4.0 g/dL Normal [facility] Comment on above: Performed By: #### C MP, LIPID #### [facility] [address] [place] [address] Dr. Alley Ochoa Glucose [Mass/Vol] 115 mg/dL Critically high 74-106 [facility] Comment on above: Performed By: #### C MP, LIPID #### [facility] [address] [place] [address] Dr. Alley Ochoa Potassium [Moles/Vol] 4.7 mmol/L Normal 3.5-5.1 [facility] Comment on above: Performed By: #### C MP, LIPID #### [facility] [address] [address] [address] Alley Ochoa Protein [Mass/Vol] 7.8 g/dL Normal 6.4-8.2 [facility] Comment on above: Performed By: #### C MP, LIPID #### [facility] [address] [address] [address] Alley Ochoa Sodium [Moles/Vol] 136 mmol/L Normal 136-145 [facility] Comment on above: Performed By: #### C MP, LIPID #### [facility] [address] [place] [address] Dr. Alley Ochoa Urea nitrogen [Mass/Vol] 12.0 mg/dL Normal 7.0-18.0 [facility] Comment on above: Performed By: #### C MP, LIPID #### [facility] [address] [place] [address] Dr. Alley Ochoa Urea nitrogen/Creatinine [Mass ratio] 15.0 mg/mg Normal [facility] Comment on above: Performed By: #### C MP, LIPID #### [facility] [address] [place] [address] Dr. Alley Ochoa Quick Fluon 08-12-2021 FLUAV Ab CF (S) [Titer] Negative [employer] [facility] Other FLUBV Ab CF (S) [Titer] Negative [facility] Other Vital Signs Date Time Vital Sign Value Performing Clinician Facility 01-28-2024 10:59-0400 Body height 162.56 cm [facility] 01-28-2024 10:59-0400 Body mass index (BMI) [Ratio] 27.9 kg/m2 [facility] 01-28-2024 10:59-0400 Body weight 73.93 kg [facility] 01-28-2024 10:59-0400 Diastolic blood pressure 78 mm[Hg] [facility] 01-28-2024 10:59-0400 Heart rate 72 /min [facility] 01-28-2024 10:59-0400 SaO2% (BldA) [Mass fraction] 98 % [facility] 01-28-2024 10:59-0400 Systolic blood pressure 120 mm[Hg] [facility] 11-21-2023 14:33-0400 Diastolic blood pressure 82 mm[Hg] [address] 11-21-2023 14:33-0400 Heart rate 66 /min [address] 11-21-2023 14:33-0400 Systolic blood pressure 128 mm[Hg] [address] 01-19-2023 10:00-0400 Body height 162.56 cm Karmen Tovar Other [employer] Other 01-19-2023 10:00-0400 Body mass index (BMI) [Ratio] 29.18 kg/m2 Karmen Tovar Other [employer] Other 01-19-2023 10:00-0400 Body weight 77.11 kg Karmen Tovar Other [employer] Other 01-19-2023 10:00-0400 Diastolic blood pressure 88 mm[Hg] Karmen Tovar Other [employer] Other 01-19-2023 10:00-0400 Systolic blood pressure 118 mm[Hg] Karmen Tovar Other [employer] Other 01-05-2023 15:05-0400 Body height 162.56 cm Mag Perry Other [employer] Other 01-05-2023 15:05-0400 Body mass index (BMI) [Ratio] 28.66 kg/m2 Mag Perry Other [employer] Other 01-05-2023 15:05-0400 Body temperature 98.1 [degF] Mag Vicky Other [employer] Other 01-05-2023 15:05-0400 Body weight 75.75 kg Mag Vicky Other [employer] Other 01-05-2023 15:05-0400 Diastolic blood pressure 81 mm[Hg] Mag Vicky Other [employer] Other 01-05-2023 15:05-0400 Respiratory rate 18 /min Mag Vicky Other [employer] Other 01-05-2023 15:05-0400 SaO2% (BldA) [Mass fraction] 93 % Mag Vicky Other [employer] Other 01-05-2023 15:05-0400 Systolic blood pressure 131 mm[Hg] Mag Perry Other [employer] Other 09-05-2022 11:25-0400 Body height 162.56 cm Kimberley Rodríguez Other [employer] Other 09-05-2022 11:25-0400 Body mass index (BMI) [Ratio] 28.42 kg/m2 Kimberley Rodríguez Other [employer] Other 09-05-2022 11:25-0400 Body temperature 98 [degF] Kimberley Rodríguez Other [employer] Other 09-05-2022 11:25-0400 Body weight 75.12 kg Kimberley Rodríguez Other [employer] Other 09-05-2022 11:25-0400 Diastolic blood pressure 70 mm[Hg] Kimberley Rodríguez Other [employer] Other 09-05-2022 11:25-0400 Respiratory rate 16 /min Kimberley Rodríguez Other [employer] Other 09-05-2022 11:25-0400 SaO2% (BldA) [Mass fraction] 97 % Kimberley Rodríguez Other [employer] Other 09-05-2022 11:25-0400 Systolic blood pressure 125 mm[Hg] Kimberley Rodríguez Other [employer] Other 07-03-2022 15:57-0500 Body height 162.56 cm DO Osiel House Work Phone: [facility] 07-03-2022 12:00-0500 Diastolic blood pressure 78 mm[Hg] DO Osiel House Work Phone: [facility] 07-03-2022 12:00-0500 Heart rate 78 /min DO Osiel House Work Phone: [facility] 07-03-2022 12:00-0500 Respiratory rate 16 /min DO Osiel House Work Phone: [facility] 07-03-2022 12:00-0500 SaO2% (BldA) [Mass fraction] 97 % DO Osiel House Work Phone: [facility] 07-03-2022 12:00-0500 Systolic blood pressure 138 mm[Hg] DO Osiel House Work Phone: [facility] 07-03-2022 08:00-0500 Body temperature 97.8 [degF] DO Osiel House Work Phone: [facility] 07-03-2022 05:40-0500 Body weight 73.1 kg DO Osiel House Work Phone: [facility] 07-02-2022 21:52-0500 Body height 162.56 cm DO Osiel House Work Phone: [facility] 07-02-2022 21:52-0500 Body temperature 97.8 [degF] DO Osiel House Work Phone: [facility] 07-02-2022 21:52-0500 Body weight 73.9 kg DO Osiel House Work Phone: [facility] 07-02-2022 21:52-0500 Diastolic blood pressure 86 mm[Hg] DO Osiel House Work Phone: [facility] 07-02-2022 21:52-0500 Heart rate 65 /min DO Osiel House Work Phone: [facility] 07-02-2022 21:52-0500 Respiratory rate 16 /min DO Osiel House Work Phone: [facility] 07-02-2022 21:52-0500 SaO2% (BldA) [Mass fraction] 96 % DO Osiel House Work Phone: [facility] 07-02-2022 21:52-0500 Systolic blood pressure 144 mm[Hg] DO Osiel House Work Phone: [facility] 07-02-2022 00:00-0500 60 1 Osiel P House Work Phone: [facility] 250 DO Work Phone: Comment on above: [id number] 04-14-2022 15:05-0400 Body height 162.56 cm Kimberley Rodríguez Other [employer] Other 04-14-2022 15:05-0400 Body mass index (BMI) [Ratio] 28.66 kg/m2 Kimberley Rodríguez Other [employer] Other 04-14-2022 15:05-0400 Body temperature 97.9 [degF] Kimberley Rodríguez Other [employer] Other 04-14-2022 15:05-0400 Body weight 75.75 kg Kimberley Rodríguez Other [employer] Other 04-14-2022 15:05-0400 Diastolic blood pressure 74 mm[Hg] Kimberley Rodríguez Other [employer] Other 04-14-2022 15:05-0400 Respiratory rate 18 /min Kimberley Rodríguez Other [employer] Other 04-14-2022 15:05-0400 SaO2% (BldA) [Mass fraction] 96 % Kimberley Rodríguez Other [employer] Other 04-14-2022 15:05-0400 Systolic blood pressure 127 mm[Hg] Kimberley Rodríguez Other [employer] Other 02-01-2022 15:58-0400 Body height 162.56 cm [employer] Work Phone: [facility] [employer] 250 DO Work Phone: 02-01-2022 15:58-0400 Body mass index (BMI) [Ratio] 28.32 kg/m2 Osiel [employer] Work Phone: [facility] [employer] 250 DO Work Phone: 02-01-2022 15:58-0400 Body surface area Derived from formula 1.8 m2 Osiel P OMEGA MORGAN Work Phone: [facility] [employer] 250 DO Work Phone: 02-01-2022 15:58-0400 Body weight 74.84 kg Osiel P House Work Phone: [facility] 250 DO Work Phone: 02-01-2022 15:58-0400 Diastolic blood pressure 78 mm[Hg] Osiel P House Work Phone: [facility] 250 DO Work Phone: 02-01-2022 15:58-0400 Heart rate 68 /min Osiel P House Work Phone: [facility] 250 DO Work Phone: 02-01-2022 15:58-0400 Systolic blood pressure 118 mm[Hg] Osiel P House Work Phone: [facility] 250 DO Work Phone: 01-31-2022 14:57-0400 65 1 Osiel P OMEGA MORGAN Work Phone: [facility] Work Phone: Comment on above: FSL 08-12-2021 11:15-0500 Body height 162.56 cm Jael Fournier Other [employer] Other 08-12-2021 11:15-0500 Body mass index (BMI) [Ratio] 28.32 kg/m2 Jael Fournier Other [employer] Other 08-12-2021 11:15-0500 Body temperature 98.1 [degF] Jael Fournier Other [employer] Other 08-12-2021 11:15-0500 Body weight 74.84 kg Jael Fournier Other [employer] Other 08-12-2021 11:15-0500 SaO2% (BldA) [Mass fraction] 97 % Jael Fournier Other [employer] Other Encounters Encounter Date Encounter Type Care Provider Facility Start: 01-28-2024 End: 01-28-2024 ambulatory [facility] Work Phone: Start: 01-28-2024 End: 01-28-2024 Patient encounter procedure [facility] Work Phone: Start: 11-21-2023 End: 11-21-2023 ambulatory [facility] Start: 11-21-2023 End: 11-21-2023 Subsequent hospital visit by physician Nathalie Dupree Stress Room 1 [facility] Comment on above: Atherosclerosis of n ative coronary artery, unspecified whether angina present, unspecified whether [place] or transplanted heart Start: 10-16-2023 End: 10-16-2023 ambulatory IVETTE MYERSArturo Not Available Start: 05-07-2023 End: 05-07-2023 ambulatory Karmen Tovar Other [employer] Other Start: 05-07-2023 Telephone encounter Karmen Wilkinsabdullahironni her [facility] Start: 04-04-2023 End: 04-04-2023 ambulatory Karmen Guy Other [employer] Other Start: 04-04-2023 Telephone encounter Karmen Wilkinsglory her [facility] Start: 03-29-2023 End: 03-29-2023 ambulatory Karmen Guy Other [employer] Other Start: 03-29-2023 Telephone encounter Karmen Wilkinsabdullahironni her [facility] Start: 03-02-2023 Rx Renewal Osiel P Eric ball Work Phone: [facility] 250 DO Work Phone: Start: 02-26-2023 Rx Renewal Osiel P Eric ball Work Phone: [facility] 250 DO Work Phone: Start: 01-26-2023 Telephone encounter Osiel Pettit Work Phone: [facility] 250 DO Work Phone: Start: 01-25-2023 AUDIT Osiel ball Work Phone: [facility] 250 DO Work Phone: Start: 01-24-2023 End: 01-24-2023 ambulatory Karmen Guy Other [employer] Other Start: 01-24-2023 Telephone encounter Karmen Emiliana [facility] Start: 01-19-2023 End: 01-19-2023 ambulatory Karmen Guy Other [employer] Other Start: 01-19-2023 Encounter for genera l adult medical examination without abnormal findings Karmen Tovar [facility] Start: 01-19-2023 Initial preventive medicine new patient 40-64yrs Karmen Tovar [facility] Start: 01-05-2023 End: 01-05-2023 ambulatory Mag Perry Other [employer] Other Start: 01-05-2023 Office outpatient vi sit 15 minutes Mag Perry [facility] [place] Start: 12-26-2022 Rx Renewal Osiel ball Work Phone: [facility] 250 DO Work Phone: Start: 10-11-[address] [facility] Start: 09-07-2022 End: 09-07-2022 ambulatory Kimberley Rodríguez Other [employer] Other Start: 09-07-2022 Telephone encounter Kimberley Rodríguez [facility] Urgent Care [facility] Start: 09-05-2022 Office outpatient vi sit 15 minutes Kimberley Rodríguez [facility] [place] Start: 09-05-2022 End: 09-05-2022 ambulatory Kimberley Rodríguez [facility] Work Phone: Start: 09-05-2022 End: 09-05-2022 Departed Referred DO Osiel Pettit Work Phone: [facility] [place] Work Phone: Start: 08-25-2022 End: 08-25-[address] OSIEL PETTIT Facility:[facility] Start: 07-16-2022 Rx Renewal Osiel P Hous e Work Phone: [facility] 250 DO Work Phone: Start: 07-05-2022 ambulatory Eduardo ZHOU Facility: [facility] Start: 07-03-2022 Rx Renewal Osiel P Hous e Work Phone: [facility] 250 DO Work Phone: Start: 07-02-2022 End: 07-03-2022 ambulatory Osiel Pettit Facility:[facility] Start: 07-02-2022 End: 07-03-2022 Evaluation and management of inpatient DO Osiel Joseph Work Phone: [facility] [place] [facility] Work Phone: Start: 07-02-2022 End: 07-03-2022 observation encounter DO Osiel Pettit Work Phone: [facility] Work Phone: Start: 06-08-2022 ambulatory Eduardo ZHOU Facility:[facility] Start: 05-17-2022 End: 08-26-[address] DIANA RAMIREZ Facility:[facility] Start: 04-20-2022 End: 04-20-[address] OSIEL PETTIT Facility:[facility] Start: 04-17-2022 Rx Renewal Osiel P Hous e Work Phone: [facility] 250 DO Work Phone: Start: 04-14-2022 End: 04-14-2022 ambulatory Kimberley Rodríguez Other [facility] [employer] Other Start: 04-14-2022 Office outpatient vi sit 25 minutes Kimberley Rodríguez [facility] Start: 02-28-2022 Rx Renewal Osiel P Hous e Work Phone: [facility] 250 DO Work Phone: Start: 02-27-2022 Telephone encounter Osiel Pettit Work Phone: [facility] 250 DO Work Phone: Start: 02-22-2022 ambulatory Ms. Jerome Pelaez Facilit [id number] Start: 02-14-2022 Rx Renewal Osiel P Hous e Work Phone: [facility] 250 DO Work Phone: Start: 02-02-2022 Encounter for genera l adult medical examination without abnormal findings DR OSIEL PETTIT [facility] Start: 02-01-2022 ambulatory Ms. Jerome Pelaez Facility: Start: 02-01-2022 Office outpatient vi sit 15 minutes Osiel Pettit Work Phone: [facility] 600 DO Work Phone: Start: 02-01-2022 Patient encounter procedure Osiel Pettit Work Phone: [facility] 250 DO Work Phone: Start: 01-31-2022 End: 02-01-[address] OSIEL PETTIT Facility:[facility] Start: 01-31-2022 End: 02-01-2022 Encounter for general adult medical examination without abnormal findings DR OSIEL PETTIT Facility:[facility] Start: 01-16-2022 Rx Renewal Osiel P Hous e Work Phone: [facility] 250 DO Work Phone: Start: 12-02-2021 Rx Renewal Osiel P Hous e Work Phone: [facility] 250 DO Work Phone: Start: 11-21-2021 Rx Change Osiel P Hous e Work Phone: [facility] 250 DO Work Phone: Start: 11-17-2021 Rx Change Osiel P Hous e Work Phone: [facility] 600 DO Work Phone: Start: 11-10-2021 Telephone encounter Osiel Pettit Work Phone: [facility] 250 DO Work Phone: Start: 10-26-2021 Rx Renewal Osiel P Hous e Work Phone: [facility] 250 DO Work Phone: Start: 10-19-2021 Telephone encounter Osiel Pettit Work Phone: [facility] 250 DO Work Phone: Start: 08-12-2021 End: 08-12-2021 ambulatory Jael Fournier Other [employer] Other Start: 08-12-2021 Office outpatient vi sit 15 minutes Jael Fournier [facility] Start: 07-15-2021 Rx Renewal Osiel P Hous e Work Phone: [facility] 250 DO Work Phone: Start: 06-28-2018 Patient encounter procedure PROVIDER UNKNOWN Facility:[facility] Patient encounter status Osiel Pettit Work Phone: [facility] 250 DO Work Phone: Procedures Date Procedure Procedure Detail Performing Clinician Start: 11-21-2023 Cv strs tst xers&/or rx cont ecg trcg only Elfego Marshall DO Work Phone: Start: 07-03-2022 MRI of head DO Osiel Pettit Work Phone: Start: 07-02-2022 CT angiography of head DO Osiel Pettit Work Phone: Start: 07-02-2022 CT angiography of ne ck vessels DO Osiel Pettit Work Phone: Start: 07-02-2022 CT of head without contrast DO Osiel Pettit Work Phone: Start: 07-02-2022 Plain chest X-ray DO Sunil Pettit Work Phone: Start: 07-02-2022 Urine culture DO Cuba Pettit Work Phone: Start: 04-19-2022 Microscopic observat ion [Identifier] in Cervix by Cyto stain Nathalie 1 Start: 02-02-2015 Colonoscopy Nathalie 1 section Osiel P H ouse Work Phone: Cholecystectomy Osiel Murphy Ho use Work Phone: History of percutane ous transluminal coronary angioplasty History of PTCA 1 History of placement of stent for coronary artery disease Karmen Tovar Other Hysterectomy Osiel Pettit Work Phone: Total colonoscopy Osiel Pettit Work Phone: Plan of Treatment Date Care Activity Detail Author Start: 04-19-2025 Screening for malignant neoplasm of cervix [facility] Start: 02-02-2025 Screening for malignant neoplasm of colon [facility] Start: 02-10-2024 Influenza vaccination Influenza Vaccine (Season Ended) [facility] Start: 12-05-2023 FUV, Provider: Elfego Marshall, Status: Pen, Time: 9:00 AM FUV, Provider: Elfego Marshall, Status: Pen, Time: 9:00 AM [facility] 250 DO Work Phone: Start: 12-05-2023 End: 12-05-2023 Patient encounter procedure 12/05/2023 9:00 AM EDT Office Visit [place] [id number] [id number] Elfego Marshall DO [address] [place] [place] [address] [facility] Start: 11-06-2023 STRESS MIC, Provider: SHANICE HHVI NUCLEAR 01,[id number], Status: Pen, Time: 11:30 AM STRESS MIC, Provider: SHANICE HHVI NUCLEAR 01,[id number], Status: Pen, Time: 11:30 AM [facility] 250 DO Work Phone: Start: 02-09-2023 COVID-19 Vaccine ( season) COVID-19 Vaccine () [facility] Start: 09-05-2022 Bacteria identified in Urine by Culture Urine Culture [facility] Start: 08-02-2022 FUV, Provider: Elfego Marshall, Status: Pen, Time: 9:50 AM FUV, Provider: Elfego Marshall, Status: Pen, Time: 9:50 AM [facility] 250 DO Work Phone: Start: 07-03-2022 Lipid panel [facility] Start: 07-03-2022 End: 07-03-2022 [facility] Start: 07-02-2022 Physical therapy procedure [facility] Start: 07-02-2022 Referral to occupational therapist [facility] Start: 07-02-2022 Referral to speech and language therapy service [facility] Start: 07-02-2022 Hospital admission [facility] Start: 07-02-2022 MRI of head MR head/brain wo [facility] Start: 07-02-2022 Referral to neurologist [facility] Start: 07-02-2022 [facility] Start: 07-02-2022 CT angiography of head [facility] Start: 07-02-2022 CT angiography of neck vessels [facility] Start: 07-02-2022 CT Head WO contrast [facility] Start: 07-02-2022 CT of head without contrast CT head stroke alert wo con [facility] Start: 07-02-2022 Plain chest X-ray XR chest 1V portable [facility] Start: 07-02-2022 XR Chest Single view [facility] Start: 07-02-2022 Bacteria identified in Urine by Culture Urine Culture [facility] Start: 07-02-2022 Urine culture Urine Culture [facility] Start: 02-22-2022 STRESS MIC, Provider: SHANICE HHVI NUCLEAR 01,[id number], Status: Pen, Time: 11:00 AM STRESS MIC, Provider: SHANICE HHVI NUCLEAR 01,[id number], Status: Pen, Time: 11:00 AM [facility] 250 DO Work Phone: Start: 02-01-2022 FUV, Provider: Jerome Michel, Status: Pen, Time: 3:30 PM FUV, Provider: Jerome Michel, Status: Pen, Time: 3:30 PM [facility] 250 DO Work Phone: Start: 01-02-2022 FUV, Provider: Jerome Michel, Status: Pen, Time: 3:30 PM FUV, Provider: Jerome Michel, Status: Pen, Time: 3:30 PM [facility] 250 DO Work Phone: Start: 11-30-2021 FUV, Provider: Elfego Marshall, Status: Pen, Time: 10:50 AM FUV, Provider: Elfego Marshall, Status: Pen, Time: 10:50 AM [facility] 250 DO Work Phone: Start: 08-10-2021 FUV, Provider: Elfego Marshall, Status: Pen, Time: 10:10 AM FUV, Provider: Elfego Marshall, Status: Pen, Time: 10:10 AM [facility] 250 DO Work Phone: Start: 01-30-2020 Zoster Vaccines (1 of 2) Zoster Vaccines (1 of 2) [facility] Start: 2010 Screening for malignant neoplasm of breast Mammogram [facility] Start: 01-30-1992 DTaP/Tdap/Td Vaccines (1 - Tdap) DTaP/Tdap/Td Vaccines (1 - Tdap) [facility] Start: 1991 Screening for malignant neoplasm of cervix HPV/Cotest [facility] Start: 1989 Hepatitis B Vaccines (1 of 3 - 19+ 3-dose series) Hepatitis B Vaccines (1 of 3 - 19+ 3-dose series) [facility] Start: 1989 Urine screening for protein Diabetes: Urine Protein Screening [facility] Start: 01-30-1988 Hepatitis C screening Hepatitis C Screening [facility] Start: 01-30-1980 Diabetic foot examination Diabetes: Foot Exam [facility] Start: 01-30-1980 Glaucoma screening Diabetes: Retinopathy Screening [facility] Start: 01-30-1976 Pneumococcal Vaccine: Pediatrics (0 to 5 Years) and At-Risk Patients (6 to 64 Years) (1 of 2 - PCV) Pneumococcal Vaccine: Pediatrics (0 to 5 Years) and At-Risk Patients (6 to 64 Years) (1 of 2 - PCV) [facility] Start: 1971 MMR Vaccines (1 of 1 - Standard series) MMR Vaccines (1 of 1 - Standard series) [facility] Start: 1970 Hemoglobin A1c measurement Diabetes: Hemoglobin A1C [facility] Start: 1970 HIV screening HIV Screening [facility] Start: 1970 Lipid panel Lipid Panel [facility] Start: 1970 Screening for malignant neoplasm of colon [facility] Start: 1970 Yearly Adult Physical Yearly Adult Physical [facility] Comprehensive metabo lic 2000 panel - Serum or Plasma [facility] Patient Education Quitting Smoking [facility] Work Phone: Patient referral [facility] Work Phone: [facility] Immunizations Immunization Date Immunization Notes Care Provider Matilde pimentel 09-09-2021 Moderna COVID-19 Vaccine 100 MCG/0.5ML Intramuscular Suspension Osiel Murphy House Work Phone: [facility] 250 DO Work Phone: 11-05-2020 margaret thakur don't use Jael Fournier Other [employer] Other 08-30-2020 margaret thakur don't use Jael Fournier Other [facility] Payers Date Payer Category Payer Unknown 2023 Unknown [id number] 1970 Unknown [id number] 2.16.8 [id number] 1970 Unknown [id number] 2.16.8 [id number] 1970 Unknown [id number] 2.16.8 [id number] 1970 Unknown [id number] 2.16. [id number] 1970 Unknown [id number] 2.16. [id number] 1970 Unknown [id number] 2.16.84 [id number] 1970 Unknown [id number] 2.16.84 [id number] 1970 Unknown [id number] 2.16.84 [id number] 1970 Unknown [id number] 2.16.84 [id number] 1970 Unknown [id number] 2.16.8 [id number] 1959 Self-pay [id number] 1959 Unknown [id number] Unknown [id number] 2.16.8 [id number] Unknown [id number] 2.16.8 [id number] Unknown [id number] 2.16.84 [id number] Social History Date Type Detail Facility Start: 08-20-2023 Social alcohol use Social alcohol us e [facility] [facility] Work Phone: Comment on above: SMOKES ABOUT 1 PPD; Start: 08-20-2023 Sex Assigned At [facility] Other Start: 07-02-2022 End: 01-28-2024 Tobacco smoking status RUST Smoker (finding) [facility] Start: 1970 Sex Assigned At Female F [facility] Start: 07-03-2022 End: 07-03-2022 Tobacco smoking status ILIS Current some day smoker [facility] Start: 08-20-2023 Tobacco smoking stat [facility] Smokes tobacco daily [facility] Work Phone: History of tobacco use Cigarette Smoker [facility] Work Phone: Start: 08-20-2023 Alcoholic beverage intake Current drinker of alcohol (finding) [facility] Work Phone: Start: 08-20-2023 Alcohol Comment social [facility] Work Phone: Start: 1970 Sex assigned at Not on file [facility] Work Phone: Start: 11-11-2023 End: 11-21-2023 Exposure to SARS-CoV-2 (event) Not sure [facility] Medical Equipment Procedure Code Equipment Code Equipment Origin al Text Equipment Identifier Dates Drug-eluting coronary artery stent, [id number] lymer-coated ()[id number] FDA Start: 07-01-2019 Femoral artery closure plug/patch, synthetic polymer [id number] FDA Start: 07-01-2019 Goals Date Patient Goal Desired Activity /State Functional Status Date Assessment Result Facility 07-03-2022 Functional status Patient at Baseline [facility] Work Phone: Mental Status Date Assessment Result Facility 07-03-2022 Cognitive function Cognitive Sta tus Patient at Baseline [facility] Work Phone: Clinical Notes 2019 to 05-07-2023 Note Date & Type Note Facility 05-07-2023 Evaluation note Encounter Date Diagnosis Assessment Notes Apr, Reactive depression (ICD-10 - F32.9) Apr, Gastroesophageal reflux disease without esophagitis (ICD-10 - K21.9) [facility] Other 08-11-2023 Evaluation note* Encounter Date Diagnosis Assessment Notes Treatment Notes Treatment Clinical Notes Jan, Wellness examination (ICD-10 - Z00.00) Personalized health advice was given to the beneficiary including a written plan for screenings discussed and provided. Advanced care planning reviewed and/or information given as requested. Additional counseling was provided here today in regards to general topics regarding health education were discussed in detail. All preventative issues were discussed including remaining a nonsmoker, colorectal screening, the importance of proper sleep for brain health maintenance, maintaining a heart-healthy balanced diet, recognizing and addressing signs of anxiety and depression, maintaining positive relationships with family and friends. Jan, History of heart artery stent (ICD-10 - Z95.5) Follows with Cardiology. Takes medications as prescribed. Jan, Reactive depression (ICD-10 - F32.9) Remains stable on current therapeutic dose. Patient is encouraged to stay active and remain involved. Try to keep themselves busy. Take medication as directed and we will continue to monitor. Jan, Gastroesophageal reflux disease without esophagitis (ICD-10 - K21.9) Reflux symptoms remain unchanged. Discussed the importance of meal content. They should avoid overeating and eating meals late in the evening. Take medication as directed and we will continue to monitor. Jan, History of stroke (ICD-10 - Z86.73) Follows with Neurology. Is taking Pavix. Reviewed Signs of stroke FAST:Face-uneven or droop to one side; Arm weakness or numnbess in one or both arms, does one arm drift; Speech- trouble w/ speaking or slurred; Time- call 911 immediately. Lifestyle changes, stop smoking, eat diet rich in fruits, vegetables, low-fat dairy and low in meats, sweets, and refined grains (such as white bread and rice). Eat less sodium, limit alcohol intake. Woman less than 1 drink/day. Man less than 2 drinks/day Jan, History of COVID-19 (ICD-10 - Z86.16) 12/2022 Was diagnosed with COVID over a week ago and symptoms are resolved now. Jan, Atherosclerotic hear t disease of [place] coronary artery without angina pectoris (ICD-10 - I25.10) Jan, Coronary atherosclerosis due to lipid rich plaque (ICD-10 - I25.83) [facility] Other 08-11-2023 Evaluation note* Encounter Date Diagnosis Assessment Notes Treatment Notes Treatment Clinical Notes Jan, Wellness examination (ICD-10 - Z00.00) Personalized health advice was given to the beneficiary including a written plan for screenings discussed and provided. Advanced care planning reviewed and/or information given as requested. Additional counseling was provided here today in regards to general topics regarding health education were discussed in detail. All preventative issues were discussed including remaining a nonsmoker, colorectal screening, the importance of proper sleep for brain health maintenance, maintaining a heart-healthy balanced diet, recognizing and addressing signs of anxiety and depression, maintaining positive relationships with family and friends. Jan, History of heart artery stent (ICD-10 - Z95.5) Follows with Cardiology. Takes medications as prescribed. Jan, Reactive depression (ICD-10 - F32.9) Remains stable on current therapeutic dose. Patient is encouraged to stay active and remain involved. Try to keep themselves busy. Take medication as directed and we will continue to monitor. Jan, Gastroesophageal reflux disease without esophagitis (ICD-10 - K21.9) Reflux symptoms remain unchanged. Discussed the importance of meal content. They should avoid overeating and eating meals late in the evening. Take medication as directed and we will continue to monitor. Jan, History of stroke (ICD-10 - Z86.73) Follows with Neurology. Is taking Pavix. Reviewed Signs of stroke FAST:Face-uneven or droop to one side; Arm weakness or numnbess in one or both arms, does one arm drift; Speech- trouble w/ speaking or slurred; Time- call 911 immediately. Lifestyle changes, stop smoking, eat diet rich in fruits, vegetables, low-fat dairy and low in meats, sweets, and refined grains (such as white bread and rice). Eat less sodium, limit alcohol intake. Woman less than 1 drink/day. Man less than 2 drinks/day Jan, History of COVID-19 (ICD-10 - Z86.16) 12/2022 Was diagnosed with COVID over a week ago and symptoms are resolved now. Jan, Atherosclerotic hear t disease of [place] coronary artery without angina pectoris (ICD-10 - I25.10) Jan, Coronary atherosclerosis due to lipid rich plaque (ICD-10 - I25.83) Jan, Cigarette nicotine dependence without complication (ICD-10 - F17.210) We discussed possible complications of smoking including risk of heart disease, stroke, lung disease, and increase risk of cancer. Your goal is to quit smoking. The availability, risks, and benefits of medication used to treat nicotine addiction as releveant to you have been discussed. We are working together to achieve these goals with the following plan; barriers to these goals have been discussed. You have been given relevant education handouts and a summary of your care plan. Your next follow-up visit for this problem is six months, we will continue to ask progress for quitting and willingness to quit at each appointment. [facility] Other 07-28-2023 Evaluation note* Encounter Date Diagnosis Assessment Notes Treatment Notes Treatment Clinical Notes Dec, Contact with and (suspected) exposure to covid-19 (ICD-10 - Z20.822) Dec, COVID-19 (ICD-10 - U07.1) Discharge Instructions for COVID-19 (Suspected or Confirmed ) material was printed Discussed COVID test in office is also positive for COVID. Discussed viral nature of COVID and typical duration. Discussed symptomatic treatment such as Mucinex DM, Tylenol as needed. Push fluids. Discussed with patient she is at somewhat increased risk for complications from COVID given smoking status, cardiac history. Discussed benefits versus risk of antiviral medications. Discussed option of molnupiravir prescription if she is interested. Patient currently declines antiviral therapy. Patient is advised to follow-up with PCP if she is not improving over the next week, ER if any significant shortness of breath, signs of respiratory distress. Discussed quarantine guidelines of 5 days as long as overall improving symptoms, fever free, 5 days of a mask after quarantine. Discussed contagious nature. Work note given. Patient verbalized understanding of treatment plan. [facility] Other 03-28-2023 Evaluation note* Encounter Date Diagnosis Assessment Notes Treatment Notes Treatment Clinical Notes Aug, Dysuria (ICD-10 - R30.0) Discussed diagnosis and dipstick findings with patient. WIll hold off on treatment at this time. Advised patient culture was sent today and we will call with her results in 2-5 days. At time of results, treatment plan many change. Patient instructed to push fluids. Patient symptoms should improve in the next 48 hours, if symptoms persist follow up with PCP or UC. Immediate eval by ER if back or flank pain, fever, chills, N/V, or any other concerning symptoms arise. Patient verbalizes understanding and is agreeable to treatment plan [facility] Other 01-23-2023 Progress note Author Savanna Orellana [facility] July 03, 2022 3:50pm Note Date/Time July 03, 2022 1 1:40am [facility] [address] [place] [address] Hospitalist Progress Note Signed with Addenda Patient: Shefali Riggs MR#: [id number] : 1970 Acct:[id number] Age/Sex: 52 / F Adm Date: 3 Loc: Room: [address] [place] [address] Type: ADM INOo Attending Dr: Savanna Orellana MD Copies to: ~ ADDENDUM1 Patient was seen and evaluated by Neurology MRI brain reviewed: no acute pathology Echo reviewed: Normal EF, no PFO Patient was cleared by neurology for discharge Continue with Aspirin 81 mg daily and Plavix 75 mg daily PPI daily Continue Alirocumab Follow up with neurology clinic as outpatient Counseled regarding smoking cessation Discussed with patient and at bedside discharge plan, medications changes and follow ups. Voiced understanding and in agreement to the plan. Addendum Documented By: Savanna Orellana MD 07/03/22 1549 Addendum Signed By: <Electronically signed by Savanna Orellana MD> 07/03/221548 Date of Service: 07/03/2022 Subjective Subjective Narrative: Patient was seen and examined at bedside. Daughter at bedside. no major events overnight. Patient remained afebrile and hemodynamically stable overnight. No active complaints today. She feels she is back to her baseline. Denies any weakness or numbness. She said her symptoms have resolved. She does report smoking history about 1 pack a day for more than 25 years. She got history of 2cardiac stents in 2013 and 2019. She did have similar presentation in 2013 and was told she had stroke versus TIA versus hemiplegic migraine. Exam Physical Exam Vital Signs: Temp Pulse Resp BP Pulse Ox O2 Del Method 97.8 F 77 16 125/78 97 Room Air 07/03/22 08:00 07/03/22 08:00 07/03/22 08:00 07/03/22 08:00 07/03/22 08:00 07/03/22 08:00 Narrative: Const General: cooperative, comfortable, in no acute distress HEENT Normal oropharyngeal mucosa without any ulcers or exudates Eyes: Conjunctiva normal Pulmonary Auscultation: clear to auscultation , no crackles, no wheezes Cardiovascular Rate: normal rate Rhythm: regular rhythm Heart Sounds: S1 normal, S2 normal and no murmurs GI Inspection: non-distended Palpation: soft, not firm and nontender. No rigidity or rebound. Deferred Neuro General: alert, awake and oriented x3. No obvious new focal deficit strength 5/5 in upper and lower extremity Sensation intact No facial asymmetry Tongue at midline Musculoskeletal: normal range of motion Extrem General: no cyanosis, no pedal edema Skin: no significant ulcers, no rash noted Psych Appearance: appropriate affect. Grossly normal Objective Lab Results 07/02/22 19:14 07/02/22 19:14 Microbiology Results Microbiology 07/02/22 19:02 Urine - Clean-Voided Midstream Urine Culture - Preliminary <9,000 colonies/ml mixed bacterial skin contaminants 1 Day Meds Allergies and Active Meds Allergies Penicillins Allergy (Verified 07/02/22 19:10) Unknown Reaction Active Meds: Active Medications Generic Name Dose Route Start Last Admin Trade Name Kristie PRN Reason Stop Dose Admin Acetaminophen 650 mg 07/02/22 21:52 Acetaminophen 325 Mg Tablet PO 07/02/23 21:51 Q6HR PRN Pain Scale 1 - 3 or fever Aspirin 81 mg 07/03/22 09:00 07/03/22 08:36 Aspirin 81 Mg Tablet. PO 07/03/23 08:59 81 mg DAILY KEVAN Administration Clopidogrel Bisulfate 75 mg 07/03/22 09:00 07/03/22 08:36 Clopidogrel Bisulfate 75 Mg Tablet PO 07/03/23 08:59 75 mg DAILY KEVAN Administration Duloxetine HCl 60 mg 07/03/22 09:00 07/03/22 08:36 Duloxetine 60 Mg Capsule. PO 07/03/23 08:59 60 mg DAILY KEVAN Administration Enoxaparin Sodium 40 mg 07/03/22 10:00 07/03/22 11:32 Enoxaparin 40 Mg/0.4 Ml Syringe SUBCUT 07/03/23 09:59 Not Given DAILY@10 [facility] Hydralazine HCl 10 mg 07/02/22 21:52 Hydralazine 20 Mg/Ml Vial IV-PUSH 07/02/23 21:51 Q4H PRN Hypertension Melatonin 5 mg 07/02/22 22:35 07/03/22 02:58 Melatonin 5 Mg Tablet PO 07/02/23 22:34 Not Given QHS KEVAN Metoprolol Tartrate 25 mg 07/03/22 09:00 07/03/22 08:37 Metoprolol Tartrate 25 Mg Tablet PO 07/03/23 08:59 25 mg BID KEVAN Administration Omeprazole 20 mg 07/03/22 09:00 07/03/22 08:36 Omeprazole 20 Mg Capsule. PO 07/03/23 08:59 20 mg DAILY KEVAN Administration Sodium Chloride 0 ml 07/02/22 19:08 07/02/22 19:24 Sodium Chloride 0.9 % 10 Ml Syringe IV-PUSH 07/02/23 19:07 10 ml PRN PRN Administration Flush Spironolactone 100 mg 07/03/22 09:00 07/03/22 08:36 Spironolactone 100 Mg Tablet PO 07/03/23 08:59 100 mg DAILY KEVAN Administration Vitamin D 50 mcg 07/03/22 09:00 07/03/22 08:36 Cholecalciferol 25 Mcg (1,000 Units) Tablet PO 07/03/23 08:59 50 mcg DAILY KEVAN Administration A&P - Hospitalist Assessment/Plan (1) Left sided numbness: (2) Hypertension: (3) Current smoker: Plan 52-year-old female admitted for left-sided numbness on upper and lower extremities and facial drooping which has significantly improved since presenting to the ED. She has a past medical history of CAD with 2 coronary stents, smokes pack a day for 25 years,TIA, HLD, HTN, SVT, GERD, and depression. Left-sided numbness in upper and lower extremity- resolved- Possibly TIA CVA cannot be ruled out Previous similar event 2013- was told TIA vs CVA vs hemiplegic migraine -Patient has high risk factors for stroke such as HTN, smoking, HLD, CAD with 2 coronary stents -Continue home metoprolol 25mg BID. BP stable for now. -CT head with no acute pathology. CTA with no evidence of large vessel occlusion. -HbA1C 5.8. She was told to take metformin by her PCP however she did not want to take it and wants to follow lifestyle modifications approach at this time. -Dyslipidemia: LDL here at 77. Taking Praluent injection SQ. Had myalgias with statin- could not tolerate previously. -Awaiting neurology evaluation -PT/OT eval and treat -Continue home medications -Counseled regarding smoking cessation. Patient is not willing to quit smoking at this time. She had tried multiple methods but failed. We will continue counseling Chronic conditions Hypertension-controlled with home medication metoprolol DVT prophylaxis Lovenox Code status: Full code Discussed with patient and daughter at bedside. All questions answered. In agreement with the above plan Discharge planning once cleared by neurology Savanna Caballero MD Internal Medicine Hospitalist Attending Physician Documented By: Savanna Orellana MD 07/03/22 11 33 Signed By: <Electronically signed by Savanna Orellana MD> 07/03/22 114[address] [facility] Work Phone: 1(125) 977-301501-23-2023 History and physical note Author Shari Kang [facility] July 02, 2022 10:34pm Note Date/Time July 02, 2022 9 :50pm [facility] [address] [place] [address] Hospitalist H&P Signed with Addenda Patient: Shefali Riggs MR#: [id number] : 1970 Acct:[id number] Age/Sex: 52 / F Adm Date: 3 Loc: Room: [address] [place] [address] Type: ADM IN Attending Dr: Shari Kang MD Copies to: DO Shari Majano MD~ ADDENDUM1 Patient was personally seen by me on the day of encounter, reviewed her history and performed avery elements of exam and formulated the plan of care and confirmedthe resident/interns note below. On examination patient resting comfortably and currently denies any complaint. She mentioned her symptoms are almost resolved other than slight tingling on theleft foot. Motor strength 5/5 in all 4 extremities without facial droop, dysarthria or pronator drift. In the ER her NIH stroke scale was 1. Case was discussed with telestroke team in [facility] by ER and tPA was not recommended due to her minimal symptoms which also improved. In the ER CTA head and neck negative for critical stenosis with pending final report which need to be followed. Patient does have risk factor for CVA including coronary artery disease, hyperlipidemia and active tobacco smoking. She mentioned her hyperlipidemia was not getting controlled with statin and currently on Alirocumab and also takes 2 baby aspirin daily. We will add Plavix to aspirin until stroke is ruled out. Consult neurology, MRI brain and 2D echocardiogram. Check A1c and lipid profile. Patient mentioned having similar symptoms in 2013 and was not given definite diagnosis and was told it could be atypical migraine versus TIA versus CVA. Addendum Documented By: Shari Kang MD 07/02/222233 Addendum Signed By: <Electronically signed by Shari Kang MD> 07/02/22 2234 HPI DATE OF EXAMINATION: 07/02/22 HISTORY OF PRESENT ILLNESS: 52-year-old female presents to the ED hypertensive with left-sided upper and lower extremity weakness along with left-sided facial drooping. She states around 5:30pm she felt lightheaded, diaphoretic and nauseous and felt like she was going to pass out. She developed a mild headache across her forehead. She checked her blood pressure and remembers it being 195/100. She subsequently developed left-sided numbness down her arm and down her left leg and felt weak. She states that the left side of her face felt droopy as she was attempting to call her for help. She was brought in by her . She states this is happened to her before back in 2013 when she developed a sharp headache that then led left-sided weakness and numbness. She was in the hospital for about a week with inpatient rehab. She states he was ruled out has a TIA. She felt back to baseline since then. She states that this point she is feeling significantly better and actually started to feel better on her way to the ER. She feels that her left-sided numbness has significantly improved both in her upper and lower extremity, and states that her left leg still feels somewhat heavy. She received a dose of aspirin in the ER. She states that her left-sided droopiness has resolved and she is drinking water in the ER as she passed her swallow test. Upon presenting to the ED her blood pressure was 183/103 and has come down to 142/82. She is an active smoker and smokes about a pack a dayfor the past 25 years. She has history of CAD with 2 coronary stents, TIA, HLD,HTN, SVT, GERD, and depression. She currently takes baby aspirin and no other blood thinners. Review of Systems Review of Systems All other systems reviewed & are negative unless noted below or in HPI [facility] Attestation Statement: The following information was validated with the patient. Vaccinated for COVID-19?: Yes Medical History GERD (gastroesophageal reflux disease) Hyperlipidemia Hypertension Pericarditis SVT (supraventricular tachycardia) TIA (transient ischemic attack) Surgical History History of cholecystectomy History of heart artery stent History of hysterectomy Previous section Family History Sister Hypertension Grandparent Coronary artery disease Social History Smoking Status: Current every day smoker Tobacco Type: cigarettes Substance Use Type: Alcohol Meds Medications and Allergies Allergies Penicillins Allergy (Verified 07/02/22 19:10) Unknown Reaction Home Medications aspirin 81 mg tablet,delayed release 162 mg PO DAILY 07/01/19 [History Confirmed 07/02/22] duloxetine 60 mg capsule,delayed release 60 mg PO DAILY 07/01/19 [History Confirmed 07/02/22] pantoprazole 40 mg tablet,delayed release 40 mg PO DAILY 07/01/19 [History Confirmed 07/02/22] spironolactone 100 mg tablet 100 mg PO DAILY 07/01/19 [History Confirmed 07/02/22] cholecalciferol (vitamin D3) 50 mcg (2,000 unit) capsule (Vitamin D3) 50 mcg PO DAILY 08/31/20 [History Confirmed 07/02/22] metoprolol tartrate 25 mg tablet 25 mg PO BID 30 days #60 tabs 09/01/20 [Rx Confirmed 07/02/22] alirocumab 150 mg/mL subcutaneous pen injector (Praluent Pen) 150 mg subcut Q2W 07/02/22 [History Confirmed 07/02/22] furosemide 20 mg tablet 20 mg PO DAILY PRN edema 07/02/22 [History Confirmed 07/02/22] Exam Physical Exam Vital Signs: Temp Pulse Resp BP Pulse Ox O2 Del Method 98.6 F 68 21 142/82 H 97 Room Air 07/02/22 20:19 07/02/22 20:52 07/02/22 20:52 07/02/22 20:52 07/02/22 20:52 07/02/22 20:52 Narrative: Constitutional awake, alert, oriented x3, no acute distress breathing comfortably on room air Head: Normocephalic, atraumatic ENT: EOMI, PERRLA, no cervical lymphadenopathy, moves facial muscles appropriately without noticeable facial droop Cardiovascular: Heart regular rate, no murmurs Pulmonology: Lungs clear to auscultation bilaterally no rales, no wheezes, no rhonchi, normal respiratory effort Gastroenterology: Soft, nontender, normal bowel sounds present Extremities: No lower extremity edema, no cyanosis, no erythema, moves all extremities against gravity, 5/5 muscle strength on right leg, 4/5 muscle strength in left leg Neuro: CN II-XII grossly intact, without obvious deficit Skin: Dry, warm, intact Psych: Appropriate affect Results Lab Results Labs: Laboratory Last Values Corrected WBC 10.8 X10E3/uL (3.8-11.6) 07/02/22 19:14 Uncorrected WBC Count 10.8 x10E3/uL (3.8-11.6) 07/02/22 19:14 RBC 5.04 X10E6/uL (3.60-5.00) H 07/02/22 19:14 Hgb 15.9 g/dL (11.8-15.4) H 07/02/22 19:14 Hct 46.6 % (34.0-46.4) H 07/02/22 19:14 MCV 92.3 fl (80-100) 07/02/22 19:14 MCH 31.6 pg (24.7-34.3) 07/02/22 19:14 MCHC 34.2 g/dL (32.0-35.0) 07/02/22 19:14 RDW 13.6 % (11.9-15.3) 07/02/22 19:14 Plt Count 302 x10E3/uL (150-450) 07/02/22 19:14 MPV 8.4 fl (6.3-10.7) 07/02/22 19:14 Neut % (Auto) 48.3 % (.) 07/02/22 19:14 Lymph % (Auto) 30.5 % (.) 07/02/22 19:14 Mcpherson % (Auto) 14.0 % (.) 07/02/22 19:14 Eos % (Auto) 6.4 % (.) 07/02/22 19:14 Baso % (Auto) 0.8 % (.) 07/02/22 19:14 Nucleat RBC Rel Count 0.2 /100 WBC (0-0.5) 07/02/22 19:14 Neut # (Auto) 5.2 x10E3/uL (1.8-7.7) 07/02/22 19:14 Lymph # (Auto) 3.3 x10E3/uL (1.00-4.8) 07/02/22 19:14 Mcpherson # (Auto) 1.5 x10E3/uL (0.0-0.8) H 07/02/22 19:14 Eos # (Auto) 0.7 x10E3/uL (0.0-0.45) H 07/02/22 19:14 Baso # (Auto) 0.1 x10E3/uL (0.0-0.2) 07/02/22 19:14 Monocyte Dist Width 18.05 % (0.00-20.00) 07/02/22 19:14 PT 10.8 Seconds (9.0-12.9) 07/02/22 19:14 INR 0.9 07/02/22 19:14 APTT 29.4 Seconds (25.1-36.5) 07/02/22 19:14 PHA Creatinine Clear 83.99 07/02/22 19:14 Sodium 135 mmol/L (136-146) L 07/02/22 19:14 Potassium 3.7 mmol/L (3.5-5.1) 07/02/22 19:14 Chloride 98 mmol/L (95-114) 07/02/22 19:14 Carbon Dioxide 23.7 mmol/L (22.0-30.0) 07/02/22 19:14 Anion Gap 17.0 mEq/L (6.0-15.0) H 07/02/22 19:14 BUN 10 mg/dL (9-23) 07/02/22 19:14 Creatinine 0.87 mg/dL (0.44-1.03) 07/02/22 19:14 Est GFR ( Amer) > 60 mL/Min 07/02/22 19:14 Est GFR (Non-Af Amer) > 60 mL/Min 07/02/22 19:14 Glucose 111 mg/dL (70-100) H 07/02/22 19:14 POC Glucose 140 mg/dl 07/02/22 19:06 POC Glucose Comment 07/02/22 19:06 POC Glucose Comment Cleaned meter 07/02/22 19:06 Calcium 9.3 mg/dL (8.2-10.2) 07/02/22 19:14 Total Creatine Kinase 140 U/L (22-269) 07/02/22 19:14 CK-MB (CK-2) 1.9 ng/mL (0.6-6.3) 07/02/22 19:14 CK-MB (CK-2) Rel Index 1.3 % (0.00-2.50) 07/02/22 19:14 Troponin I High Sens 4 pg/mL (0-15) 07/02/22 19:14 Urine Color Yellow (Yellow) 07/02/22 19:02 Urine Appearance Clear (Clear) 07/02/22 19:02 Urine pH 5.5 (5.0-9.0) 07/02/22 19:02 Ur Specific [place] 1.003 (1.001-1.030) 07/02/22 19:02 Urine Protein Negative mg/dL (Negative) 07/02/22 19:02 Urine Glucose (UA) Normal mg/dL (Normal) 07/02/22 19:02 Urine Ketones Negative (Negative) 07/02/22 19:02 Urine Occult Blood Negative (Negative) 07/02/22 19: Urine Nitrite Negative (Negative) 07/02/22 19: Urine Bilirubin Negative (Negative) 07/02/22 19: Urine Urobilinogen Normal mg/dL (Normal) 07/02/22 19:02 Ur Leukocyte Esterase 1+ (Negative) H 07/02/22 19:02 Urine RBC 3-4 /HPF (0-4) 07/02/22 19:02 Urine WBC 5-9 /HPF (0-4) H 07/02/22 19:02 Ur Squamous Epith Cells 1-2 /HPF (0-2) 07/02/22 19:02 Urine Bacteria None seen (None Seen) 07/02/22 19: Hyaline Casts 0-8 /LPF (0-8) 07/02/22 19:02 A&P - Hospitalist Assessment/Plan (1) Left sided numbness: (2) Hypertension: (3) Current smoker: Plan 52-year-old female admitted for left-sided numbness on upper and lower extremities and facial drooping which has significantly improved since presenting to the ED. She has a past medical history of CAD with 2 coronary stents, smokes pack a day for 25 years,TIA, HLD, HTN, SVT, GERD, and depression. Left-sided numbness in upper and lower extremity CVA cannot be ruled out -Patient developed as mild headache, lightheadedness, and nausea along with left-sided numbness in upper and lower extremities and a left-sided facial drooparound 530. She states her symptoms have significantly resolved since presenting to the ED. She states her left leg still feels heavy. She is swallowing water comfortably. She has had similar symptoms in the past back in 2013 which was ruled a TIA. -Patient has high risk factors for stroke such as HTN, smoking, HLD, CAD with 2 coronary stents -In Ed bp 183/103 and has come down to 142/82. Continue home metoprolol 25mg BID -Awaiting official report from CT head non contrast, CTA head/CTA neck. UA negative for infectious process. -Obtain lipid panel, A1c, B12, folate -consult neurology -obtain PT/OT -Continue home medications chronic conditions Hypertension- improving - In Ed bp 183/103 and has come down to 142/82. Patient reports a mild HOROWITZ. She denies SOB, chest pain,nausea, and vomiting. DVT prophylaxis Lovenox Code status: Full code Documented By: Shari Kang MD 07/02/222108 Signed By: <Electronically signed by Shari Kang MD> 07/02/222158 <Electronically signed by DO SHAHBAZ Kendall> 07/02/222149 [facility] Work Phone: 1(151) 302-457011-04-2022 Evaluation note* Encounter Date Diagnosis Assessment Notes Treatment Notes Treatment Clinical Notes Apr, Contact with and (suspected) exposure to covid-19 (ICD-10 - Z20.822) Apr, Viral URI with cough (ICD-10 - J06.9) Advised patient that COVID/Influenza A/B PCR test and rapid Strep test was negative today. Advised patient that will treat as viral URI. Supportive care as directed, increase fluids and rest, Tylenol/Motrin as directed, rx of Bromfed and Flonase as directed, cool mist humidifier, throat lozenges. Discussed infection control practices such as good hand washing and mask wearing. Patient to follow up with PCP if symptoms persist or worsen despite treatment. Immediate eval for SOB, difficulty, chest pain, fevers that do not break with antipyretic or any other concerning symptoms as reviewed on patient education handout. Patient verbalizes understanding and is agreeable to treatment plan. Patient left in stable condition Apr, Sore throat (ICD-10 - J02.9) [facility] Other 03-04-2022 Evaluation note* Encounter Date Diagnosis Assessment Notes Treatment Notes Treatment Clinical Notes Aug, Contact with and (suspected) exposure to other viral communicable diseases (ICD-10 - Z20.828) Aug, Acute pansinusitis, recurrence not specified (ICD-10 - J01.40) rx sent, take as directed. continue symptomatic tx at this time otc meds prn as discussed. advised smoking cessation. recommended hot steam baths, cool mist humidifier and/or sinus lavage with Neti Pot. push rest/fluids. reinforced universal infection control protocols and good hand hygiene for infection control. immediate eval if warning s/s of intractable fevers, respir distress or other emergent symptoms. otherwise f/u with PCP if febrile or new/worsening s/s. pt verbalizes understanding and agrees with tx plan. Aug, Other Additional time spent conducting pre-visit phone call, screening for symptoms, instructions on social distancing, application and removal of PPE, and cleaning of examination room, equipment and supplies was preformed. Patient education given for testing methodology and results. Patient care instructions given in writting by [facility] document. Due to infection control protocols for COVID-19 virus, direct physical contact with patient was limited to only the absolute essential needed assessments. [employer] Other 08-21-2019 History and physical note Author Shari Kang [facility] July 02, 2022 10:34pm Note Date/Time July 02, 2022 9 :50pm [facility] [address] [place] [address] Hospitalist H&P Signed with Addenda Patient: Shefali Rgigs MR#: [id number] : 1970 Acct:[id number] Age/Sex: 52 / F Adm Date: 3 Loc: Room: 7N9381-8 Type: ADM IN Attending Dr: Shari Kang MD Copies to: DO Shari Majano MD~ ADDENDUM1 Patient was personally seen by me on the day of encounter, reviewed her history and performed avery elements of exam and formulated the plan of care and confirmedthe resident/interns note below. On examination patient resting comfortably and currently denies any complaint. She mentioned her symptoms are almost resolved other than slight tingling on theleft foot. Motor strength 5/5 in all 4 extremities without facial droop, dysarthria or pronator drift. In the ER her NIH stroke scale was 1. Case was discussed with telestroke team in [facility] by ER and tPA was not recommended due to her minimal symptoms which also improved. In the ER CTA head and neck negative for critical stenosis with pending final report which need to be followed. Patient does have risk factor for CVA including coronary artery disease, hyperlipidemia and active tobacco smoking. She mentioned her hyperlipidemia was not getting controlled with statin and currently on Alirocumab and also takes 2 baby aspirin daily. We will add Plavix to aspirin until stroke is ruled out. Consult neurology, MRI brain and 2D echocardiogram. Check A1c and lipid profile. Patient mentioned having similar symptoms in 2013 and was not given definite diagnosis and was told it could be atypical migraine versus TIA versus CVA. Addendum Documented By: Shari Kang MD 07/02/222233 Addendum Signed By: <Electronically signed by Shari Kang MD> 07/02/222233 HPI DATE OF EXAMINATION: 07/02/22 HISTORY OF PRESENT ILLNESS: 52-year-old female presents to the ED hypertensive with left-sided upper and lower extremity weakness along with left-sided facial drooping. She states around 5:30pm she felt lightheaded, diaphoretic and nauseous and felt like she was going to pass out. She developed a mild headache across her forehead. She checked her blood pressure and remembers it being 195/100. She subsequently developed left-sided numbness down her arm and down her left leg and felt weak. She states that the left side of her face felt droopy as she was attempting to call her for help. She was brought in by her . She states this is happened to her before back in 2013 when she developed a sharp headache that then led left-sided weakness and numbness. She was in the hospital for about a week with inpatient rehab. She states he was ruled out has a TIA. She felt back to baseline since then. She states that this point she is feeling significantly better and actually started to feel better on her way to the ER. She feels that her left-sided numbness has significantly improved both in her upper and lower extremity, and states that her left leg still feels somewhat heavy. She received a dose of aspirin in the ER. She states that her left-sided droopiness has resolved and she is drinking water in the ER as she passed her swallow test. Upon presenting to the ED her blood pressure was 183/103 and has come down to 142/82. She is an active smoker and smokes about a pack a dayfor the past 25 years. She has history of CAD with 2 coronary stents, TIA, HLD,HTN, SVT, GERD, and depression. She currently takes baby aspirin and no other blood thinners. Review of Systems Review of Systems All other systems reviewed & are negative unless noted below or in HPI [facility] Attestation Statement: The following information was validated with the patient. Vaccinated for COVID-19?: Yes Medical History GERD (gastroesophageal reflux disease) Hyperlipidemia Hypertension Pericarditis SVT (supraventricular tachycardia) TIA (transient ischemic attack) Surgical History History of cholecystectomy History of heart artery stent History of hysterectomy Previous section Family History Sister Hypertension Grandparent Coronary artery disease Social History Smoking Status: Current every day smoker Tobacco Type: cigarettes Substance Use Type: Alcohol Meds Medications and Allergies Allergies Penicillins Allergy (Verified 07/02/22 19:10) Unknown Reaction Home Medications aspirin 81 mg tablet,delayed release 162 mg PO DAILY 07/01/19 [History Confirmed 07/02/22] duloxetine 60 mg capsule,delayed release 60 mg PO DAILY 07/01/19 [History Confirmed 07/02/22] pantoprazole 40 mg tablet,delayed release 40 mg PO DAILY 07/01/19 [History Confirmed 07/02/22] spironolactone 100 mg tablet 100 mg PO DAILY 07/01/19 [History Confirmed 07/02/22] cholecalciferol (vitamin D3) 50 mcg (2,000 unit) capsule (Vitamin D3) 50 mcg PO DAILY 08/31/20 [History Confirmed 07/02/22] metoprolol tartrate 25 mg tablet 25 mg PO BID 30 days #60 tabs 09/01/20 [Rx Confirmed 07/02/22] alirocumab 150 mg/mL subcutaneous pen injector (Praluent Pen) 150 mg subcut Q2W 07/02/22 [History Confirmed 07/02/22] furosemide 20 mg tablet 20 mg PO DAILY PRN edema 07/02/22 [History Confirmed 07/02/22] Exam Physical Exam Vital Signs: Temp Pulse Resp BP Pulse Ox O2 Del Method 98.6 F 68 21 142/82 H 97 Room Air 07/02/22 20:19 07/02/22 20:52 07/02/22 20:52 07/02/22 20:52 07/02/22 20:52 07/02/22 20:52 Narrative: Constitutional awake, alert, oriented x3, no acute distress breathing comfortably on room air Head: Normocephalic, atraumatic ENT: EOMI, PERRLA, no cervical lymphadenopathy, moves facial muscles appropriately without noticeable facial droop Cardiovascular: Heart regular rate, no murmurs Pulmonology: Lungs clear to auscultation bilaterally no rales, no wheezes, no rhonchi, normal respiratory effort Gastroenterology: Soft, nontender, normal bowel sounds present Extremities: No lower extremity edema, no cyanosis, no erythema, moves all extremities against gravity, 5/5 muscle strength on right leg, 4/5 muscle strength in left leg Neuro: CN II-XII grossly intact, without obvious deficit Skin: Dry, warm, intact Psych: Appropriate affect Results Lab Results Labs: Laboratory Last Values Corrected WBC 10.8 X10E3/uL (3.8-11.6) 07/02/22 19:14 Uncorrected WBC Count 10.8 x10E3/uL (3.8-11.6) 07/02/22 19:14 RBC 5.04 X10E6/uL (3.60-5.00) H 07/02/22 19:14 Hgb 15.9 g/dL (11.8-15.4) H 07/02/22 19:14 Hct 46.6 % (34.0-46.4) H 07/02/22 19:14 MCV 92.3 fl (80-100) 07/02/22 19:14 MCH 31.6 pg (24.7-34.3) 07/02/22 19:14 MCHC 34.2 g/dL (32.0-35.0) 07/02/22 19:14 RDW 13.6 % (11.9-15.3) 07/02/22 19:14 Plt Count 302 x10E3/uL (150-450) 07/02/22 19:14 MPV 8.4 fl (6.3-10.7) 07/02/22 19:14 Neut % (Auto) 48.3 % (.) 07/02/22 19:14 Lymph % (Auto) 30.5 % (.) 07/02/22 19:14 Mcpherson % (Auto) 14.0 % (.) 07/02/22 19:14 Eos % (Auto) 6.4 % (.) 07/02/22 19:14 Baso % (Auto) 0.8 % (.) 07/02/22 19:14 Nucleat RBC Rel Count 0.2 /100 WBC (0-0.5) 07/02/22 19:14 Neut # (Auto) 5.2 x10E3/uL (1.8-7.7) 07/02/22 19:14 Lymph # (Auto) 3.3 x10E3/uL (1.00-4.8) 07/02/22 19:14 Mcpherson # (Auto) 1.5 x10E3/uL (0.0-0.8) H 07/02/22 19:14 Eos # (Auto) 0.7 x10E3/uL (0.0-0.45) H 07/02/22 19:14 Baso # (Auto) 0.1 x10E3/uL (0.0-0.2) 07/02/22 19:14 Monocyte Dist Width 18.05 % (0.00-20.00) 07/02/22 19:14 PT 10.8 Seconds (9.0-12.9) 07/02/22 19:14 INR 0.9 07/02/22 19:14 APTT 29.4 Seconds (25.1-36.5) 07/02/22 19:14 PHA Creatinine Clear 83.99 07/02/22 19:14 Sodium 135 mmol/L (136-146) L 07/02/22 19:14 Potassium 3.7 mmol/L (3.5-5.1) 07/02/22 19:14 Chloride 98 mmol/L (95-114) 07/02/22 19:14 Carbon Dioxide 23.7 mmol/L (22.0-30.0) 07/02/22 19:14 Anion Gap 17.0 mEq/L (6.0-15.0) H 07/02/22 19:14 BUN 10 mg/dL (9-23) 07/02/22 19:14 Creatinine 0.87 mg/dL (0.44-1.03) 07/02/22 19:14 Est GFR ( Amer) > 60 mL/Min 07/02/22 19:14 Est GFR (Non-Af Amer) > 60 mL/Min 07/02/22 19:14 Glucose 111 mg/dL (70-100) H 07/02/22 19:14 POC Glucose 140 mg/dl 07/02/22 19:06 POC Glucose Comment 07/02/22 19:06 POC Glucose Comment Cleaned meter 07/02/22 19:06 Calcium 9.3 mg/dL (8.2-10.2) 07/02/22 19:14 Total Creatine Kinase 140 U/L (22-269) 07/02/22 19:14 CK-MB (CK-2) 1.9 ng/mL (0.6-6.3) 07/02/22 19:14 CK-MB (CK-2) Rel Index 1.3 % (0.00-2.50) 07/02/22 19:14 Troponin I High Sens 4 pg/mL (0-15) 07/02/22 19:14 Urine Color Yellow (Yellow) 07/02/22 19:02 Urine Appearance Clear (Clear) 07/02/22 19:02 Urine pH 5.5 (5.0-9.0) 07/02/22 19:02 Ur Specific [place] 1.003 (1.001-1.030) 07/02/22 19:02 Urine Protein Negative mg/dL (Negative) 07/02/22 19:02 Urine Glucose (UA) Normal mg/dL (Normal) 07/02/22 19:02 Urine Ketones Negative (Negative) 07/02/22 19:02 Urine Occult Blood Negative (Negative) 07/02/22 19:02 Urine Nitrite Negative (Negative) 07/02/22 19:02 Urine Bilirubin Negative (Negative) 07/02/22 19:02 Urine Urobilinogen Normal mg/dL (Normal) 07/02/22 19:02 Ur Leukocyte Esterase 1+ (Negative) H 07/02/22 19:02 Urine RBC 3-4 /HPF (0-4) 07/02/22 19:02 Urine WBC 5-9 /HPF (0-4) H 07/02/22 19:02 Ur Squamous Epith Cells 1-2 /HPF (0-2) 07/02/22 19:02 Urine Bacteria None seen (None Seen) 07/02/22 19:02 Hyaline Casts 0-8 /LPF (0-8) 07/02/22 19:02 A&P - Hospitalist Assessment/Plan (1) Left sided numbness: (2) Hypertension: (3) Current smoker: Plan 52-year-old female admitted for left-sided numbness on upper and lower extremities and facial drooping which has significantly improved since presenting to the ED. She has a past medical history of CAD with 2 coronary stents, smokes pack a day for 25 years,TIA, HLD, HTN, SVT, GERD, and depression. Left-sided numbness in upper and lower extremity CVA cannot be ruled out -Patient developed as mild headache, lightheadedness, and nausea along with left-sided numbness in upper and lower extremities and a left-sided facial drooparound 530. She states her symptoms have significantly resolved since presenting to the ED. She states her left leg still feels heavy. She is swallowing water comfortably. She has had similar symptoms in the past back in 2013 which was ruled a TIA. -Patient has high risk factors for stroke such as HTN, smoking, HLD, CAD with 2 coronary stents -In Ed bp 183/103 and has come down to 142/82. Continue home metoprolol 25mg BID -Awaiting official report from CT head non contrast, CTA head/CTA neck. UA negative for infectious process. -Obtain lipid panel, A1c, B12, folate -consult neurology -obtain PT/OT -Continue home medications chronic conditions Hypertension- improving - In Ed bp 183/103 and has come down to 142/82. Patient reports a mild HOROWITZ. She denies SOB, chest pain,nausea, and vomiting. DVT prophylaxis Lovenox Code status: Full code Documented By: Shari Kang MD 07/02/222108 Signed By: <Electronically signed by Shari Knag MD> 07/02/222158 <Electronically signed by DO SHAHBAZ Kendall> 07/02/222149 [facility] Work Phone: Consult note Author Rajesh Hurd [facility] July 03, 2022 3:40pm Note Date/Time July 03, 2022 3 :40pm [facility] [address] [place] [address] Neurology Consult Note Signed Patient: Shefali Riggs MR#: [id number] : 1970 Acct:[id number] Age/Sex: 52 / F Adm Date: 3 Loc: Room: [address] [place] [address] Type: ADM INOo Attending Dr: Savanna Orellana MD Copies to: DO Osiel Ellington DO Obaydah M Daromar, MD~ HPI Consult Date: 07/03/22 [employer] Executive Director: Sam Vargas Review of Systems ENT Ears, Nose, Mouth, and Throat: Denies headache(s) Cardiovascular Cardiovascular: Denies chest pain and Denies dyspnea Gastrointestinal Gastrointestinal: Denies nausea and Denies vomiting Neurologic Neurologic: Denies dizziness, Denies numbness, Reports tingling and Denies weakness PMFSH Vaccinated for COVID-19?: Yes Medical History GERD (gastroesophageal reflux disease) Hyperlipidemia Hypertension Pericarditis SVT (supraventricular tachycardia) TIA (transient ischemic attack) Surgical History History of cholecystectomy History of heart artery stent History of hysterectomy Previous section Family History Sister Hypertension Grandparent Coronary artery disease Social History Smoking Status: Current some day smoker Tobacco Type: cigarettes Substance Use Type: None Meds Medications and Allergies Allergies Penicillins Allergy (Verified 07/02/22 19:10) Unknown Reaction Home Medications aspirin 81 mg tablet,delayed release 162 mg PO DAILY 07/01/19 [History Confirmed 07/02/22] duloxetine 60 mg capsule,delayed release 60 mg PO DAILY 07/01/19 [History Confirmed 07/02/22] pantoprazole 40 mg tablet,delayed release 40 mg PO DAILY 07/01/19 [History Confirmed 07/02/22] spironolactone 100 mg tablet 100 mg PO DAILY 07/01/19 [History Confirmed 07/02/22] cholecalciferol (vitamin D3) 50 mcg (2,000 unit) capsule (Vitamin D3) 50 mcg PO DAILY 08/31/20 [History Confirmed 07/02/22] metoprolol tartrate 25 mg tablet 25 mg PO BID 30 days #60 tabs 09/01/20 [Rx Confirmed 07/02/22] alirocumab 150 mg/mL subcutaneous pen injector (Praluent Pen) 150 mg subcut Q2W 07/02/22 [History Confirmed 07/02/22] furosemide 20 mg tablet 20 mg PO DAILY PRN edema 07/02/22 [History Confirmed 07/02/22] Exam Physical Exam Vital Signs: Temp Pulse Resp BP Pulse Ox O2 Del Method 97.8 F 77 16 125/78 97 Room Air 07/03/22 08:00 07/03/22 08:00 07/03/22 08:00 07/03/22 08:00 07/03/22 08:00 07/03/22 08:00 Results Laboratory Findings 07/02/22 19:14 07/02/22 19:14 Lab Results: Hemoglobin A1c 5.8 % (4.3-5.6) H 07/03/22 06:00 Diagnostic Findings Imaging/Impressions: ITS Impressions Chest X-Ray 07/02/22 19:13 IMPRESSION: No acute process. Impression dictated by: Yohannes Ascencio M.D.07/03/2022 8:02 AM Dictation Location: [place] [address] 07/02/22 19:13 IMPRESSION: No acute intracranial findings. Preliminary findings given 07/02/22 at 1930 hours Impression dictated by: Yohannes Ascencio M.D.07/03/2022 8:02 AM Dictation Location: [place] [address] Head CTA 07/02/22 19:13 IMPRESSION: No occlusion, critical stenosis or dissection of the extracranial orintracranial circulation. No intracranial aneurysm. Impression dictated by: Yohannes Ascencio M.D.07/03/2022 8:06 AM Dictation Location: [place] [address] Assessment/Plan (1) Left sided numbness: Assessment/Problem Details: SUBJECTIVE: Patient is a 52 year old female with history of hypertension, hyperlipidemia, SVT, and tobacco use who presents with left sided numbness, weakness, and facialdroop. She reports yesterday around 5:30pm she began to experience lightheadedness, nausea, and tunnel vision and felt that she was going to pass out. Her symptoms were followed by numbness of the left side of her face, arm, and leg. She checked her blood pressure at the time which initially read 195/120. Her drove her to the ER and she reports she began to feel better onthe way. She felt her symptoms resolve about 2 hours later. Since then, she denies any numbness or weakness of the left extremity, and overall reports feeling well. She reports mild tingling in her foot. She had similar symptoms [id number] but was not given a clear diagnosis. She was told it may have been a TIA, CVA, or migraine. She has a history of 2 cardiac stents in 2013 and 2019 and is currently taking 2 baby aspirin at home. EXAMINATION: Sitting comfortably in chair. Alert and oriented. Well-kempt.? No distress.? No deformities or trauma.? Limbs seem well-perfused.? No significant edema.? Normalwork of breathing.? Visualized skin is generally intact and without lesions.? Affect normal.? Attention normal.? Speech is fluent and nondysarthric.? Pupils are equal and reactive.? Visual barrera full.?? Ocular motility is full.? No nystagmus.? Facial sensation is normal.? Hearing is normal.? Facial strength is normal.? Muscle bulk, tone, and strength are normal.? No tremors.? Biceps and patellar reflexes +2/4 bilaterally.? No pathologic reflexes.? Pinprick sensationis decreased in left lower extremity.? No limb dysmetria or ataxia in any limb. DATA REVIEW: CT and CTA unremarkable LDL 77, A1c 5.8% MRI nonacute ASSESSMENT: 52 year old woman presents with fairly sudden onset left sided numbness, weakness, and facial droop, all of which resolved within a few hours. This was most likely a migraine with an atypical aura ( complex migraine). Similar episode in 2013. However, despite her relatively young age she has significant vascular risk factors: history of two myocardial infarctions requiring stenting,active smoker, familial hyperlipidemia, and some hypertension. PLAN: 1. Previously on aspirin 162 mg daily; this has been changed to clopidogrel 75 mg PO and aspirin 81 mg PO 2. Continue the alirocumab 3. The utmost importance of smoking cessation was discussed at length! 4. No other recommendations at this time; she will have outpatient neurology follow up Code(s): R20.0 - Anesthesia of skin Status: Acute (2) Hypertension: Code(s): I10 - Essential (primary) hypertension Status: Chronic (3) Hyperlipidemia: Code(s): E78.5 - Hyperlipidemia, unspecified Status: Chronic Attestation Statement I agree with the above. Patient seen and examined. Documented By: Rajesh Hurd DO 07/03/22 0938 Signed By: <Electronically signed by Rajesh Hurd DO> 07/03/22 2569 [facility] Work Phone: Evaluation note* Diagnosis Onset Date Resolution Status Current smoker acute Left sided numbness acute Hypertension chronic [facility] Work Phone: Evaluation note* Diagnosis Onset Date Resolution Status Current smoker acute Left sided numbness acute Hyperlipidemia chronic Hypertension chronic [facility] Work Phone: Evaluation noteNo InformationNort [employer] Other Evaluation note* Diagnosis Atherosclerosis of [place] coronary artery, unspecified whether angina present, unspecified whether [place] or transplanted heart documented in this encounter [facility] Work Phone: Evaluation note* Diagnosis Onset Date Resolution Status Fatigue acute Headache acute Neck pain acute Tick bite acute [facility] Work Phone: Histsla general Narrative - Reported* Type Description Date Medical History stroke Medical History 2 heart attackS Medical History hyperlipidemia Surgical History C section 1989 & 2000 Surgical History hysterectomy 2003 Surgical History partial hysterectomy 2002 Surgical History gall bladder 2015 Surgical History Stents 2013 & 2020 Hospitalization History See Above [facility] Other Hispsnr general Narrative - Reported* Type Description Date Medical History stroke Medical History 2 heart attackS Medical History hyperlipidemia Surgical History C section 1989 & 2000 Surgical History hysterectomy 2003 Surgical History partial hysterectomy 2002 Surgical History gall bladder 2015 Surgical History Stents cardiac 2013 & 2020 Hospitalization History See Above [facility] Other History general Narrative - Reported* Type Description Date Medical History stroke Medical History 2 heart attackS Medical History hyperlipidemia Surgical History C section 1989 & 2000 Surgical History hysterectomy 2002 Surgical History partial hysterectomy 2002 Surgical History gall bladder 2014 Surgical History Stents cardiac 2013 Hospitalization History See Above Hospitalization History TIA 07/02/19 [facility] Other Hisiwjz general Narrative - Reported* Type Description Date Medical History stroke Medical History 2 heart attackS Medical History hyperlipidemia Surgical History C section 1989 & 2000 Surgical History hysterectomy 2002 Surgical History partial hysterectomy 2002 Surgical History gall bladder 2014 Surgical History Stents cardiac 2013 Hospitalization History See Above Hospitalization History TIA 07/02/19 Hospitalization History SVT 12/2021 [place] Other History of Present illness Narrative* The patient states she has been generally doing well since the last visit. Comorbid Illnesses: hypertension and hyperlipidemia. * Symptoms: denies chest pain at rest, denies exertional chest pain, denies dyspnea, stable fatigue, stable exercise intolerance, denies palpitations, denies edema, denies orthopnea, denies dizziness and denies orthostatic dizziness. * Associated symptoms: no syncope. * Her symptoms do not limit her activities. * Disease Monitoring: The patient has had a stable weight. * Medications: the patient is adherent with her medication regimen. She denies medication side effects. -[facility] [employer] 250 DO Work Phone: History of Present illness Narrative* The patient states she has been generally doing well since the last visit. Comorbid Illnesses: hypertension and hyperlipidemia. * Symptoms: denies chest pain at rest, denies exertional chest pain, denies dyspnea, stable fatigue, stable exercise intolerance, denies palpitations, denies edema, denies orthopnea, denies dizziness and denies orthostatic dizziness. * Associated symptoms: no syncope. * Her symptoms do not limit her activities. * Disease Monitoring: The patient has had a stable weight. * Medications: the patient is adherent with her medication regimen. She denies medication side effects. [facility] Work Phone: History of Present illness Narrative* The patient states she has been generally doing well since the last visit. Comorbid Illnesses: hypertension and hyperlipidemia. * Symptoms: denies chest pain at rest, denies exertional chest pain, denies dyspnea, stable fatigue, stable exercise intolerance, denies palpitations, denies edema, denies orthopnea, denies dizziness and denies orthostatic dizziness. * Associated symptoms: no syncope. * Her symptoms do not limit her activities. * Disease Monitoring: The patient has had a stable weight. * Medications: the patient is adherent with her medication regimen. She denies medication side effects. [facility] Work Phone: Hospital Discharge instructions Additional Instructions Speech therapy recommendations: - Sit upright at 90 degrees with all oral intake - Small bites/sips - Alternate liquids/solids - Pacing/slow-rate -Changed Aspirin from 162 mg to 81 mg daily, added Plavix 75 mg daily, continue both -Continue Alirocumab -Take Pantoprazole for stomach protection -Follow up with neurology for further evaluation at outpatient clinic -[facility] to [facility] down [facility] Work Phone: Progress note Author Savanna Orellana [facility] July 03, 2022 11:40am Note Date/Time July 03, 2022 1 1:40am [facility] [address] [place] [address] Hospitalist Progress Note Signed Patient: Shefali Riggs MR#: [id number] : 1970 Acct:[id number] Age/Sex: 52 / F Adm Date: 3 Loc: Room: [address] [place] [address] Type: ADM INOo Attending Dr: Savanna Orellana MD Copies to: ~ Date of Service: 07/03/2022 Subjective Subjective Narrative: Patient was seen and examined at bedside. Daughter at bedside. no major events overnight. Patient remained afebrile and hemodynamically stable overnight. No active complaints today. She feels she is back to her baseline. Denies any weakness or numbness. She said her symptoms have resolved. She does report smoking history about 1 pack a day for more than 25 years. She got history of 2cardiac stents in 2013 and 2019. She did have similar presentation in 2013 and was told she had stroke versus TIA versus hemiplegic migraine. Exam Physical Exam Vital Signs: Temp Pulse Resp BP Pulse Ox O2 Del Method 97.8 F 77 16 125/78 97 Room Air 07/03/22 08:00 07/03/22 08:00 07/03/22 08:00 07/03/22 08:00 07/03/22 08:00 07/03/22 08:00 Narrative: Const General: cooperative, comfortable, in no acute distress HEENT Normal oropharyngeal mucosa without any ulcers or exudates Eyes: Conjunctiva normal Pulmonary Auscultation: clear to auscultation , no crackles, no wheezes Cardiovascular Rate: normal rate Rhythm: regular rhythm Heart Sounds: S1 normal, S2 normal and no murmurs GI Inspection: non-distended Palpation: soft, not firm and nontender. No rigidity or rebound. Deferred Neuro General: alert, awake and oriented x3. No obvious new focal deficit strength 5/5 in upper and lower extremity Sensation intact No facial asymmetry Tongue at midline Musculoskeletal: normal range of motion Extrem General: no cyanosis, no pedal edema Skin: no significant ulcers, no rash noted Psych Appearance: appropriate affect. Grossly normal Objective Lab Results 07/02/22 19:14 07/02/22 19:14 Microbiology Results Microbiology 07/02/22 19:02 Urine - Clean-Voided Midstream Urine Culture - Preliminary <9,000 colonies/ml mixed bacterial skin contaminants 1 Day Meds Allergies and Active Meds Allergies Penicillins Allergy (Verified 07/02/22 19:10) Unknown Reaction Active Meds: Active Medications Generic Name Dose Route Start Last Admin Trade Name Freq PRN Reason Stop Dose Admin Acetaminophen 650 mg 07/02/22 21:52 Acetaminophen 325 Mg Tablet PO 07/02/23 21:51 Q6HR PRN Pain Scale 1 - 3 or fever Aspirin 81 mg 07/03/22 09:00 07/03/22 08:36 Aspirin 81 Mg Tablet. PO 07/03/23 08:59 81 mg DAILY KEVAN Administration Clopidogrel Bisulfate 75 mg 07/03/22 09:00 07/03/22 08:36 Clopidogrel Bisulfate 75 Mg Tablet PO 07/03/23 08:59 75 mg DAILY KEVAN Administration Duloxetine HCl 60 mg 07/03/22 09:00 07/03/22 08:36 Duloxetine 60 Mg Capsule. PO 07/03/23 08:59 60 mg DAILY KEVAN Administration Enoxaparin Sodium 40 mg 07/03/22 10:00 07/03/22 11:32 Enoxaparin 40 Mg/0.4 Ml Syringe SUBCUT 07/03/23 09:59 Not Given DAILY@10 KEVAN Hydralazine HCl 10 mg 07/02/22 21:52 Hydralazine 20 Mg/Ml Vial IV-PUSH 07/02/23 21:51 Q4H PRN Hypertension Melatonin 5 mg 07/02/22 22:35 07/03/22 02:58 Melatonin 5 Mg Tablet PO 07/02/23 22:34 Not Given QHS KEVAN Metoprolol Tartrate 25 mg 07/03/22 09:00 07/03/22 08:37 Metoprolol Tartrate 25 Mg Tablet PO 07/03/23 08:59 25 mg BID KEVAN Administration Omeprazole 20 mg 07/03/22 09:00 07/03/22 08:36 Omeprazole 20 Mg Capsule. PO 07/03/23 08:59 20 mg DAILY KEVAN Administration Sodium Chloride 0 ml 07/02/22 19:08 07/02/22 19:24 Sodium Chloride 0.9 % 10 Ml Syringe IV-PUSH 07/02/23 19:07 10 ml PRN PRN Administration Flush Spironolactone 100 mg 07/03/22 09:00 07/03/22 08:36 Spironolactone 100 Mg Tablet PO 07/03/23 08:59 100 mg DAILY KEVAN Administration Vitamin D 50 mcg 07/03/22 09:00 07/03/22 08:36 Cholecalciferol 25 Mcg (1,000 Units) Tablet PO 07/03/23 08:59 50 mcg DAILY KEVAN Administration A&P - Hospitalist Assessment/Plan (1) Left sided numbness: (2) Hypertension: (3) Current smoker: Plan 52-year-old female admitted for left-sided numbness on upper and lower extremities and facial drooping which has significantly improved since presenting to the ED. She has a past medical history of CAD with 2 coronary stents, smokes pack a day for 25 years,TIA, HLD, HTN, SVT, GERD, and depression. Left-sided numbness in upper and lower extremity- resolved- Possibly TIA CVA cannot be ruled out Previous similar event 2013- was told TIA vs CVA vs hemiplegic migraine -Patient has high risk factors for stroke such as HTN, smoking, HLD, CAD with 2 coronary stents -Continue home metoprolol 25mg BID. BP stable for now. -CT head with no acute pathology. CTA with no evidence of large vessel occlusion. -HbA1C 5.8. She was told to take metformin by her PCP however she did not want to take it and wants to follow lifestyle modifications approach at this time. -Dyslipidemia: LDL here at 77. Taking Praluent injection SQ. Had myalgias with statin- could not tolerate previously. -Awaiting neurology evaluation -PT/OT eval and treat -Continue home medications -Counseled regarding smoking cessation. Patient is not willing to quit smoking at this time. She had tried multiple methods but failed. We will continue counseling Chronic conditions Hypertension-controlled with home medication metoprolol DVT prophylaxis Lovenox Code status: Full code Discussed with patient and daughter at bedside. All questions answered. In agreement with the above plan Discharge planning once cleared by neurology Savanna Caballero MD Internal Medicine Hospitalist Attending Physician Documented By: Savanna Orellana MD 07/03/22 11 33 Signed By: <Electronically signed by Savanna Orellana MD> 07/03/22 1140 [facility] Work Phone: Summary Purpose Family History Unknown Family Member Name Dates Details No pertinent family history: Mother, Father, Sibling(V49.89, Z78.9) Status:Active Unknown Family Member Name Dates Details No pertinent family history: Mother, Father, Sibling(V49.89, Z78.9) Status:Active Unknown Family Member Name Dates Details No pertinent family history: Mother, Father, Sibling(V49.89, Z78.9) Status:Active Unknown Family Member Name Dates Details No pertinent family history: Mother, Father, Sibling(V49.89, Z78.9) Status:Active Unknown Family Member Name Dates Details No pertinent family history: Mother, Father, Sibling(V49.89, Z78.9) Status:Active Unknown Family Member Name Dates Details No pertinent family history: Mother, Father, Sibling(V49.89, Z78.9) Status:Active Unknown Family Member Name Dates Details No pertinent family history: Mother, Father, Sibling(V49.89, Z78.9) Status:Active Unknown Family Member Name Dates Details No pertinent family history: Mother, Father, Sibling(V49.89, Z78.9) Status:Active Unknown Family Member Name Dates Details No pertinent family history: Mother, Father, Sibling(V49.89, Z78.9) Status:Active Unknown Family Member Name Dates Details No pertinent family history: Mother, Father, Sibling(V49.89, Z78.9) Status:Active Unknown Family Member Name Dates Details No pertinent family history: Mother, Father, Sibling(V49.89, Z78.9) Status:Active Unknown Family Member Name Dates Details No pertinent family history: Mother, Father, Sibling(V49.89, Z78.9) Status:Active Unknown Family Member Name Dates Details No pertinent family history: Mother, Father, Sibling(V49.89, Z78.9) Status:Active Unknown Family Member Name Dates Details No pertinent family history: Mother, Father, Sibling(V49.89, Z78.9) Status:Active Unknown Family Member Name Dates Details No pertinent family history: Mother, Father, Sibling(V49.89, Z78.9) Status:Active Unknown Family Member Name Dates Details No pertinent family history: Mother, Father, Sibling(V49.89, Z78.9) Status:Active Unknown Family Member Name Dates Details No pertinent family history: Mother, Father, Sibling(V49.89, Z78.9) Status:Active Unknown Family Member Name Dates Details No pertinent family history: Mother, Father, Sibling(V49.89, Z78.9) Status:Active Unknown Family Member Name Dates Details No pertinent family history: Mother, Father, Sibling(V49.89, Z78.9) Status:Active Relationship Condition Age at Onset Recorded Date/T bruce sister Hypertension Unknown grandparent Coronary artery disease Unknown Unknown Family Member Name Dates Details No pertinent family history: Mother, Father, Sibling(V49.89, Z78.9) Status:Active Unknown Family Member Name Dates Details No pertinent family history: Mother, Father, Sibling(V49.89, Z78.9) Status:Active Unknown Family Member Name Dates Details No pertinent family history: Mother, Father, Sibling(V49.89, Z78.9) Status:Active Unknown Family Member Name Dates Details No pertinent family history: Mother, Father, Sibling(V49.89, Z78.9) Status:Active Unknown Family Member Name Dates Details No pertinent family history: Mother, Father, Sibling(V49.89, Z78.9) Status:Active Unknown Family Member Name Dates Details No pertinent family history: Mother, Father, Sibling(V49.89, Z78.9) Status:Active Unknown Family Member Name Dates Details No pertinent family history: Mother, Father, Sibling(V49.89, Z78.9) Status:Active Unknown Family Member Name Dates Details No pertinent family history: Mother, Father, Sibling(V49.89, Z78.9) Status:Active Relationship Condition Age at Onset Recorded Date/T bruce sister Hypertension Unknown grandparent Coronary artery disease Unknown mother Hypertension Unknown Advance Directives Advance Directive Response Recorded Date/ Time Advance Directives No June 27, 2019 1:33pm Advance Directive Response Recorded Date/ Time Advance Directives No June 27, 2019 2:33pm Chief Complaint * Routine f/u doing ok * SHEFALI RIGGS is being seen for a 6 month follow-up of chest pain, dyslipidemia and hypertension. * Patient is ambulatory with steady gait. * Last evaluated in clinic by Dr. Marshall Jan 2021. * A chronological chart review from last in clinic evaluation was completed. * She is considering laser liposuction - Dr. Marshall recommended GXT prior. * Compared to last cardiovascular evaluation, patient reports 'doing ok' * Patient denies any hospitalizations or significant changes to interval medical history since last office follow-up. * Patient attends to own ADLs and functional ADLs. * Patient daily activity includes: sedentary, no routine exercise * Patient ambulate in from parking lot without concerns. * Patient denies change to exercise tolerance or functional capacity since last evaluation. * Prior Angina: RS pain, nausea, diaphoresis - no recurrent symptoms * Last NTG use: none * Current cardiovascular concerns: * Wt gain, swelling, fatigue and 'feeling hot' * No documented wt. gain on our scales * Has had routine labs. * Routine f/u doing ok * SHEFALI RIGGS is being seen for a 6 month follow-up of chest pain, dyslipidemia and hypertension. * Patient is ambulatory with steady gait. * Last evaluated in clinic by Dr. Marshall Jan 2021. * A chronological chart review from last in clinic evaluation was completed. * She is considering laser liposuction - Dr. Marshall recommended GXT prior. * Compared to last cardiovascular evaluation, patient reports 'doing ok' * Patient denies any hospitalizations or significant changes to interval medical history since last office follow-up. * Patient attends to own ADLs and functional ADLs. * Patient daily activity includes: sedentary, no routine exercise * Patient ambulate in from parking lot without concerns. * Patient denies change to exercise tolerance or functional capacity since last evaluation. * Prior Angina: RS pain, nausea, diaphoresis - no recurrent symptoms * Last NTG use: none * Current cardiovascular concerns: * Wt gain, swelling, fatigue and 'feeling hot' * No documented wt. gain on our scales * Has had routine labs. * Routine f/u doing ok * SHEFALI RIGGS is being seen for a 6 month follow-up of chest pain, dyslipidemia and hypertension. * Patient is ambulatory with steady gait. * Last evaluated in clinic by Dr. Marshall Jan 2021. * A chronological chart review from last in clinic evaluation was completed. * She is considering laser liposuction - Dr. Marshall recommended GXT prior. * Compared to last cardiovascular evaluation, patient reports 'doing ok' * Patient denies any hospitalizations or significant changes to interval medical history since last office follow-up. * Patient attends to own ADLs and functional ADLs. * Patient daily activity includes: sedentary, no routine exercise * Patient ambulate in from parking lot without concerns. * Patient denies change to exercise tolerance or functional capacity since last evaluation. * Prior Angina: RS pain, nausea, diaphoresis - no recurrent symptoms * Last NTG use: none * Current cardiovascular concerns: * Wt gain, swelling, fatigue and 'feeling hot' * No documented wt. gain on our scales * Has had routine labs. * Routine f/u doing ok * SHEFALI RIGGS is being seen for a 6 month follow-up of chest pain, dyslipidemia and hypertension. * Patient is ambulatory with steady gait. * Last evaluated in clinic by Dr. Marshall Jan 2021. * A chronological chart review from last in clinic evaluation was completed. * She is considering laser liposuction - Dr. Marshall recommended GXT prior. * Compared to last cardiovascular evaluation, patient reports 'doing ok' * Patient denies any hospitalizations or significant changes to interval medical history since last office follow-up. * Patient attends to own ADLs and functional ADLs. * Patient daily activity includes: sedentary, no routine exercise * Patient ambulate in from parking lot without concerns. * Patient denies change to exercise tolerance or functional capacity since last evaluation. * Prior Angina: RS pain, nausea, diaphoresis - no recurrent symptoms * Last NTG use: none * Current cardiovascular concerns: * Wt gain, swelling, fatigue and 'feeling hot' * No documented wt. gain on our scales * Has had routine labs. Chief Complaint and Reason for Visit Chief Complaint lt side numbness, fa cial drooping Reason for Visit Current smoker Left sided numbness Hypertension Chief Complaint lt side numbness, fa cial drooping Reason for Visit Current smoker Left sided numbness Hyperlipidemia Hypertension Chief Complaint lt side numbness, fa cial drooping Dysuria Reason for Visit Current smoker Left sided numbness Hyperlipidemia Hypertension Chief Complaint toe fungus, fatigue , neck spasm , headaches Reason for Visit Fatigue Headache Neck pain Tick bite Reason for Referral Specialty Diagnoses / Procedures Referred By Contac t Referred To Contact Diagnoses Atherosclerosis of [place] coronary artery, unspecified whether angina present, unspecified whether [place] or transplanted heart Procedures Stress Test Only Elfego Marshall DO [address] [facility] [address] [place] [address] Referral ID Status Reason Start Date Expiration Date Visits Re quested Visits Authorized [id number] Closed 02/26/2023 08/25/2023 1 1 Additional Source Comments INFORMATION SOURCE (unrecogn ized section and content) DATE CREATED AUTHOR 07/05/2018 [facility] DATE CREATED AUTHOR AUTHOR'S ORGANIZ ATION 02/04/2022 [employer] DATE CREATED AUTHOR AUTHOR'S ORGANIZ ATION 03/07/2022 [facility] DATE CREATED AUTHOR AUTHOR'S ORGANIZ ATION 07/04/2022 [facility] DATE CREATED AUTHOR AUTHOR'S ORGANIZ ATION 09/09/2022 [facility] DATE CREATED AUTHOR AUTHOR'S ORGANIZ ATION 10/13/2022 [facility] DATE CREATED AUTHOR AUTHOR'S ORGANIZ ATION 11/17/2022 [facility] DATE CREATED AUTHOR AUTHOR'S ORGANIZ ATION 10/17/2023 [facility] EPIC DATE CREATED AUTHOR AUTHOR'S ORGANIZ ATION 12/29/2023 [facility] REASON FOR VISIT (unrecogniz ed section and content) Specialty Diagnoses / Procedures Referred By Contac t Referred To Contact Diagnoses Atherosclerosis of [place] coronary artery, unspecified whether angina present, unspecified whether [place] or transplanted heart Procedures Stress Test Only Elfego Marshall DO [address] [facility] [place] [address] Referral ID Status Reason Start Date Expiration Date Visits Re quested Visits Authorized [id number] Closed 02/26/2023 08/25/2023 1 1 Care Teams (unrecognized sec tion and content) Team Status: Active Member Role Status Dates Osiel Pettit DO Primary Care Provider Active Edward Christian PA-C Emergency Provider Active Shari Kang MD Admit Provider, Attending Provider Active Team Status: Active Member Role Status Dates Osiel Pettit , Primary Care Provider Active Team Status: Inactive Member Role Status Dates Osiel Pettit , Primary Care Provider Active Edward Christian PA-C Emergency Provider Active Shari Kang MD Admit Provider Active Savanna Orellana MD Attending Provider Active Rajesh Hurd DO Other Provider Active Team Status: Inactive Member Role Status Dates Osiel Pettit DO Primary Care Provider Active Kimberley Rodríguez APRN Attending Provider Active Foot Tender Relationship Specialty Start Date End Date Osiel Pettit DO PCP - General 07/08/19 Team Status: Active Member Role Status Dates Karmen Tovar APRN PHYSICAL SCIENCE TEACHER-Marcela Primary Care Provider Active Team Status: Inactive Member Role Status Dates Karmen Tovar APRN PHYSICAL SCIENCE TEACHERShayla Primary Care Provider, Attending Provider Active Start: January 28, 2024 End: January 28, 2024 Goals (unrecognized section and content) Goals may be documented in a n alternate section FOR RECORDS PERTAINING TO PATIENTS WHO ARE OR HAVE BEEN ENROLLED IN A CHEMICAL DEPENDENCY/SUBSTANCEABUSE PROGRAM, SOME INFORMATION MAY BE OMITTED. This clinical summary was aggregated from multiple sources. Caution should be exercised in using it in the provision of clinical care. This summary normalizes information from multiple sources, and as a consequence, information in this document may materially change the coding, format and clinical context of patient data. In addition, data may be omitted in some cases. CLINICAL DECISIONS SHOULD BE BASED ON THE PRIMARY CLINICAL RECORDS. [facility] [employer] [facility] provides no warranty or guarantee of the accuracy or completeness of information in this document.
[2024-01-29 07:18] LABS: Hematocrit 44.8 % (36.0-48.0); Hemoglobin 15.4 g/dL (12.0-16.0); Mean Corpuscular HGB Conc 34.4 g/dL (29.9-35.2); Mean Corpuscular Hemoglobin 32.6 pg (26.7-34.0); Mean Corpuscular Volume 94.9 fL (81.0-99.0); Platelet Count 314 10^3/uL (150-450); Red Blood Count 4.72 10^6/uL (4.20-5.40); Red Cell Distribution Width 12.5 % (11.0-15.0); White Blood Count 12.6 10^3/uL (4.0-11.0)
[2024-01-29 07:43] LABS: Alanine Aminotransferase 40 U/L (14-59); Albumin Globulin Ratio 0.9; Albumin Level 3.7 g/dL (3.4-5.0); Alkaline Phosphatase 92 U/L (46-116); Anion Gap 15.7; Aspartate Amino Transferase 24 U/L (15-37); BUN Creatinine Ratio 11.2; Bilirubin Total 0.4 mg/dL (0.2-1.0); Calcium 9.2 mg/dL (8.5-10.1); Carbon Dioxide 23.5 mmol/L (21.0-32.0); Chloride 102 mmol/L (98-107); Estimated GFR (African America >60 (>=60); Estimated GFR (Non-African Ame >60 (>=60); Globulin 3.9 g/dL; Glucose 103 mg/dL (74-106); Potassium 4.2 mmol/L (3.5-5.1); Sodium 137 mmol/L (136-145); TSH W/ REFLEX FT4 2.047 uIU/mL (0.358-3.740); Total Protein 7.6 g/dL (6.4-8.2)
[2024-01-29 07:47] LABS: Eosinophils Absolute Manual 0.63 10^3/uL (0.00-0.70); Lymphocytes Absolute Manual 2.39 10^3/uL (1.20-3.80); Monocytes Absolute Manual 1.38 10^3/uL (0.30-0.80); Segmented Neut Absolute Manual 7.68 10^3/uL (1.4-6.5)
[2024-01-29 07:57] LABS: Percent Iron Saturation 18.3 %
[2024-01-30 13:13] LABS: Lyme Total Antibody CIA Negative (Negative)
== END 2024-01-29 06:50 | disposition home or self-care (01) ==
LOC: LAB 06:50
PROVIDERS: PCP Nurse Practitioner Family; Visit Provider Nurse Practitioner Family
DX: I25.10 Atherosclerotic heart disease of native coronary artery without angina pectoris (principal); E78.5 Hyperlipidemia, unspecified; R20.2 Paresthesia of skin; R53.83 Other fatigue; R51.9 Headache, unspecified; R50.9 Fever, unspecified; W57.XXXA Bitten or stung by nonvenomous insect and other nonvenomous arthropods, initial encounter
CPT/HCPCS: 36415; 80053; 82306; 83540; 83550; 84443; 85007; 85027; 86618

== ENCOUNTER 2024-01-29 06:52 | Outpatient (OUT) | payer BC, SELFPAY ==
--- OUTSIDE RECORDS SUMMARY | 2024-01-29 06:55 | XMS_ITS | CCD ---
Author Organization [facility] Care Team Providers Care Work Distributor Name Role Phone UNKNOWN, PROVIDER Attending Unavailable OSIEL PETTIT Primary Care Unavailable Joseph Osiel Murphy Unavailable Unavailable Unavailable Jael Fournier Unavailable Ms. Jerome Pelaez Attending Unavailable Ms. Jerome Pelaez Referring Unavailable Dr. Osiel Pettit Primary Care Unava ilable Kimberley Rodríguez Unavailable Eduardo ZHOU Referring Unavailable Chris TRAYLOR Attending Unavailable DO Osiel Pettit Primary Care Provider MANAV Christian Emergency Provider [phone] MD Shari Kang Admit Provider MD Shari Kang Attending Provider [phone] MD Savanna Orellana Attending Provider [phone] DO Rajesh Hurd Other Provider Kimberley Rodríguez Admitting Unavailable Kimberley Rodríguez Attending Unavailable Osiel Pettit Primary Care Unavailable Osiel Pettit Primary Care Unavailable Shari Kang Admitting Unavailable Rajesh Hurd Consulting Unavailable Savanna Orellana Attending Unavailable DO Osiel Pettit Primary Care Provider MANAV Christian Emergency Provider MD Shari Kang Admit Provider MD Savanna Orellana Attending Provider [phone] DO Rajesh Hurd Other Provider SHERMAN Rodríguez [...] Unavailable ABELARDO ., DR MACHUCA Attending Unavailable [place], DR DIANA Gonzalez Attending Unavailable HOUSE, DR ROACH Primary Care Unavailable [place], DR DIANA Gonzalez Admitting Unavailable [place], DR DIANA Gonzalez Consulting Unavailable Mag Perry Unavailable Karmen Tovar Unavailable IVETTE SHIELDS Unavailable [place] Osiel EATON Primary Care Provider ELFEGO MARSHALL Referring Unavailable OSIEL PETTIT Primary Care Unavailable Allergies Allergy Classification Reported Allergen(s) Allergy Type Date of Onset Reaction(s) Facility (20 sources) Hmg-Coa Reductase Inhibitors (Statins); Translations: [Statins] Allergy to drug (finding) [facility] 250 DO Work Phone: (20 sources) Penicillins; Translations: [Penicillins] Allergy to drug (finding) 11-11-2013 [facility] Repository (12 sources) Penicillin V Drug Allergy [facility] [employer] Other (1 source) Penicillin; Translations: [penicillin] Drug Allergy [facility] Repository (1 source) Penicillins Drug allergy (disorder) 07-02-2022 [facility] Repository (1 source) Penicillins Drug allergy (disorder) 08-06-2013 [facility] Repository (2 sources) HMG-CoA reductase inhibitor; Translations: [TWLAMDM-MUU-NBY REDUCTASE INHIBITORS] Drug Allergy 08-20-2023 [facility] Work Phone: (1 source) Penicillins Drug Allergy 11-11-2013 [facility] Medications Current Medications Medication Drug Class(es) Dates Sig (Normalized) Sig (Original) aspirin 81 mg delayed release oral tablet (20 sources) Platelet Aggregation Inhibitor, Nonsteroidal Anti-inflammatory Drug Start: 05-15-2023 take 2 tablets by mouth once daily aspirin 81 mg EC tablet Indications: 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 every twenty-four hours Aspirin 81 MG 1 tablet Orally Once a day Active brompheniramine maleate 0.4 mg/ml / dextromethorphan hydrobromide 2 mg/ml / pseudoephedrine hydrochloride 6 mg/ml oral solution (1 source) alpha-Adrenergic Agonist, Uncompetitive Z-cmhrep-K-aspartate Receptor Antagonist, Sigma-1 Agonist Start: 04-14-2022 take 10 mL by mouth every six hours Mvsyfcpan-Sedgurxe-DJ 30-2-10 MG/5ML 10 mL Orally every 6 hours for 5 days Apr, Active cholecalciferol 0.05 mg oral capsule (11 sources) Vitamin D Start: 08-31-2020 take 1 capsule by mouth once daily Cholecalciferol (Vitamin D3) (Vitamin D3) 50 mcg (2,000 unit) Capsule Active 50 MCG PO Daily August 31, 2020 12:00am take 1 capsule by mo [facility] every twenty-four hours Vitamin D3 50 MCG [...] SureClick) 140 mg/mL injection Indications: 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 , Hyperlipidemia, unspecified [...] (Lopressor) 25 mg tablet Indications: 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 Take 1 tablet [...] (Aldactone) 100 mg tablet Indications: 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 Take 1 tablet [...] myocardial infarction; Translations: [Atherosclerotic heart disease of muscogee coronary artery without angina pectoris] Onset: 06-28-2018 [...] Interpretation Reference Range Facility Cardiac stress study [facility] 11-21-[address], [address] [place] [address] Exercise Stress Test Patient Name: SHEFALI RIGGS Ordering Provider: [id number] ELFEGO MARSHALL Study Date: 11/21/2023 Reading Physician: [id number] Deuce Roberto MD, [facility] MRN/PID: [id number] Supervising Physician: [id number] Elfego Hernandez MD Fellow: Date of /Age: 8 1970 / 53 years Fellow: Gender: F Nurse: Zuleyma Bell RN Admission Status: Endless Belt Finisher: NA Height: 162.56 cm Technologist: Weight: 76.20 kg Additional Staff: BSA: 1.82 m2 BMI: 28.84 kg/m2 Patient Location: Study Type: STRESS TEST ONLY Diagnosis/ICD: Atherosclerotic heart disease-I25.10 Indication: Chest Pain CPT Codes: Stress Test Interpretation-86187; Stress Test Supervision-[id number] Falls Risk: Low: Patient has low risk [...] favorable. 2. Adequate level of stress achieved. [id number] Deuce Roberto MD, FACC Electronically signed on 11/21/2023 at 4:57:24 PM Final Deuce Crawley M D - 11/21/[address], [address] [place] [address] Exercise Stress Test Patient Name: SHEFALI RIGGS Ordering Provider: [id number] ELFEGO MARSHALL Study Date: 11/21/2023 Reading Physician: [id number] Deuce Roberto MD, FACC MRN/PID: [id number] Supervising Physician: [id number] Elfego Hernandez MD Fellow: Date of /Age: 8 1970 / 53 years Fellow: Gender: F Nurse: Zuleyma Bell RN Admission Status: Endless Belt Finisher: MANINDER Height: 162.56 cm Technologist: Weight: 76.20 kg Additional Staff: BSA: 1.82 m2 BMI: 28.84 kg/m2 Patient Location: Study Type: STRESS TEST ONLY Diagnosis/ICD: Atherosclerotic heart disease-I25.10 Indication: Chest Pain CPT Codes: Stress Test Interpretation-65866; Stress Test Supervision-54166 Falls Risk: Low: Patient has low risk [...] favorable. 2. Adequate level of stress achieved. [id number] Deuce Roberto MD, [facility] Electronically signed on 11/21/2023 at 4:57:24 PM Final [facility] Work Phone: Cardiac stress study Procedu reOrdered By: Deuce Roberto on 11-21-2023 [facility] Work Phone: STRESS TEST ONLYon 4 STRESS TEST ONLY [address], [place] [address] Exercise Stress Test Patient Name: SHEFALI RIGGS Ordering Provider: [id number] ELFEGO MARSHALL Study Date: 11/21/2023 Reading Physician: [id number] Deuce Roberto MD, [facility] MRN/PID: [id number] Supervising Physician: [id number] Elfego Hernandez MD Fellow: Date of /Age: 8 1970 / 53 years Fellow: Gender: F Nurse: Zuleyma Bell RN Admission Status: Endless Belt Finisher: MANINDER Height: 162.56 cm Technologist: Weight: 76.20 kg Additional Staff: BSA: 1.82 m2 BMI: 28.84 kg/m2 Patient Location: Study Type: STRESS TEST ONLY Diagnosis/ICD: Atherosclerotic heart disease-I25.10 Indication: Chest Pain CPT Codes: Stress Test Interpretation-03218; Stress Test Supervision-63754 Falls Risk: Low: Patient has low risk [...] favorable. 2. Adequate level of stress achieved. [id number] Deuce Roberto MD, FACC Electronically signed on 11/21/2023 at 4:57:24 PM Final [facility] COVID Quick Testingon 2022 Result Positive [employer] Other Urinalysis - AUTOMATEDon Appearance (U) clear QED | [employer] Other Bilirubin Ql (U) Negative [employer] Other Color (U) light yellow [employer] Other Glucose Ql (U) Negative QED | [employer] Other Hemoglobin Ql (U) TRACE-INTACT [employer] Other Ketones Ql (U) Negative QED | [employer] Other Leukocyte esterase Test strip Ql (U) Negative [employer] Other Nitrite Ql (U) Negative QED | [employer] Other pH (U) 7.0 [pH] [employer] Other Protein Ql (U) Negative QED | [employer] Other Specific gravity (U) [Rel density] 1.010 [employer] Other Urobilinogen (U) [Mass/Vol] 0.2 mg/dL [employer] Other Urinalysis - AUTOMATED No rt [place] [employer] Other Urine Cultureon 09-05-2022 Bacteria identified Cx Nom (U) Reason for Exam Dysuria Urine 40,000 colonies/ml mixed bacterial skin contaminants 2 Days PERFORMED BY: [place] [id number] PATHOLOGIST REWARDS CONSULTANT KIRSTIN ALFORD M.D. Normal [facility] Comment on above: Performed By: #### C UU #### [facility] [address] [place] [address] ANNMARIE COVID-19 ANTIGENon 08-25 EUA Statement SEE BELOW Normal [facility] Comment on above: Result Comment: [...] sooner. Performed By: #### D ATCVAG #### [facility] [address] [place] [address] Dr. Alley Ochoa SARS-CoV-2 (COVID-19) RNA SCOTTY+probe Ql (Unsp spec) Negative Normal NEGATIVE [facility] Comment on above: Performed By: #### D ATCVAG #### [facility] [address] [place] [address] Dr. Alley Ochoa A1C with Estimated Average G luon 07-03-2022 Glucose [Mass/Vol] 120 mg/dL Normal [facility] Comment on above: Result Comment: PERF ORMED BY: [place] [address] PATHOLOGIST REWARDS CONSULTANT KIRSTIN ALFORD M.D. Performed By: #### L IPID, A1C [facility] ####[facility] [id number] [place] [id number] [facility] CT angio neckon 07-03-2022 CT angio neck [facility] Main [place] [address] [place] [address] CT Scan Report Signed Patient: Shefali Riggs MR#: [id number] 187 : 1970 Acct:[id number] Age/Sex: 52 / F ADM Date: 07/02/22 Loc: Room: [address] [place] [address] Type: ADM IN Attending Dr: Savanna Orellana MD Copies to: MANAV Livingston MD Ordering Provider: Edward Christian PA-C Date of Service: 07/02/22 CT/CT angio head: acute stroke/neuro deficits ([id number]) CT/CT angio neck: acute stroke/neuro deficits CTA [...] Yohannes Ascencio M.D.07/03/2022 8:06 AM Dictation Location: [place] [address] Transcribed By: [facility] 07/03/22 0806 Dictated By: Yohannes Ascencio DO 07/03/22 0803 Signed By: 07/03/22 0806 [facility] CT head stroke alert wo nelsy n 07-03-2022 CT head stroke alert [place] [address] CT Scan Report Signed Patient: Shefali Riggs MR#: [id number] [birth year] : 1970 Acct:[id number] Age/Sex: 52 / F ADM Date: 07/02/22 Loc: Room: [address] [place] [address] Type: ADM IN Attending Dr: Savanna Orellana [...] Yohannes Ascencio M.D.07/03/2022 8:02 AM Dictation Location: [place] [address] Transcribed By: [facility] 07/03/22801 Dictated By: Yohannes Ascencio DO 07/03/22800 Signed By: 07/03/22 08 Normal [facility] Cholesterol [Mass/volume] in Serum or PlasmaOrdered By: Shari Kang on 07-03-2022 Cholesterol [Mass/Vol] 151 mg/dL 140-200 [facility] Comment on above: Chol less than 200 m g/dl low riskChol 201-239 mg/dl borderline riskChol 240 mg/dl and greater high risk Cholesterol in LDL Calc [Mas s/Vol]Ordered By: Shari Kang on 07-03-2022 Cholesterol in LDL [Mass/Vol] 77 mg/dL 0-100 [facility] Comment on above: LDL ATP III CLASSIFI CATIONLDL less than 100 mg/dL OptimalLDL 100-129 mg/dL Near or above optimalLDL 130-159 mg/dL Borderline highLDL 160-189 mg/dL HighLDL greater than 189 mg/dL Very high Cholesterol in VLDL Calc [Ma ss/Vol]Ordered By: Shari Kang on 07-03-2022 Cholesterol in VLDL [Mass/Vol] 34 mg/dL [facility] ECH echo transthoracicon ECH echo transthoracic [facility] Main [place] [address] [place], [place] [id number] Echocardiogram Signed Patient: Shefali Riggs MR#: [id number] 187 : 1970 Acct:[id number] Age/Sex: 52 / F ADM Date: 07/02/22 Loc: Room: [address] [place] [address] Type: DIS INOo Attending Dr: Savanna Orellana [...] cm(2.1-3.4cm) Doppler with Normals MV E max toor: 81.5 cm/sec(0.8-1.3m/s) MV A max toro: 86.3 [...] By: Rosio Riojas MD 07/03/22 1235 Normal [facility] Folate [Mass/volume] in Seru m or PlasmaOrdered By: Patricia Ch on 07-03-2022 Folate [Mass/Vol] 21.0 ng/mL >5.9 [facility] Comment on above: Folate reference ran ge: >5.9 ng/mlThe WHO technical consultation on folate and vitamin [id number] has determined that folate concentrations lessthan 4 ng/ml are considered deficient. Glucose mean value [Mass/vol ume] in Blood Estimated from glycated hemoglobinOrdered By: Shari Kang on 07-03-2022 Average glucose Estimated from glycated hemoglobin (Bld) [Mass/Vol] 120 mg/dL [facility] Hemoglobin A1c percentageOrd ered By: Shari Kang on 07-03-2022 HbA1c (Bld) [Mass fraction] 5.8 % High 4.3-5.6 [facility] Comment on above: Increased risk for d iabetes: 5.7 - 6.4diabetes: >6.4glycemic control for adults with diabetes: <7.0 Result Comment: Incr eased risk for diabetes: 5.7 - 6.4 diabetes: >6.4 glycemic control for adults with diabetes: <7.0 Performed By: #### L IPID, A1C [facility] ####[facility] [id number] Laboratory - Chemistry and C hemistry - challengeOrdered By: Patricia Ch on 07-03-2022 Cobalamin (Vitamin B12) [Mass/Vol] 195 pg/mL 180-914 [facility] Lipid Panelon 07-03-2022 Cholesterol [Mass/Vol] 151 mg/dL Normal 140-200 [facility] Comment on above: Result Comment: Chol less than 200 mg/dl low risk Chol 201-239 mg/dl borderline risk Chol 240 mg/dl and greater high risk Performed By: #### L IPID, [address] eA ####[place] [address] [place] [address] [facility] Cholesterol in HDL [Mass/Vol] 40 mg/dL Normal 35-85 [facility] Comment on above: Result Comment: HDL CHOL ATP-III CLASSIFICATION Cardiovascular Risk HDL > or equal to 60 mg/dL LOW HDL < 40 mg/dL HIGH Performed By: #### L IPID, [address] eA ####[place] [address] [place] [id number] [facility] Cholesterol.total/Chol esterol in HDL [Mass ratio] 3.8 {ratio} Normal <5.0 [facility] Comment on above: Result Comment: PERF ORMED BY: [facility] [address] [place] [address] PATHOLOGIST REWARDS CONSULTANT KIRSTIN ALFORD M.D. Performed By: #### L IPID, [address] eA ####[place] [id number] [facility] LDL Cholesterol,Calculated 77 mg/dL Normal 0-100 [facility] Comment on above: Result Comment: LDL ATP III CLASSIFICATION LDL less than 100 mg/dL Optimal LDL 100-129 mg/dL Near or above optimal LDL 130-159 mg/dL Borderline high LDL 160-189 mg/dL High LDL greater than 189 mg/dL Very high Performed By: #### L IPID, [address] eA ####[place] [address] [place] [id number] [facility] Triglyceride w/Reflex 170 mg/dL High 35-149 [facility] Comment on above: Result Comment: TRIG ATP III CLASSIFICATION TRIG less than 150 mg/dL Normal TRIG 150-199 mg/dL Borderline high TRIG 200-500 mg/dL High TRIG greater than 500 mg/dL Very high Standard traceable to the Center for Disease Conrtrol and Prevention (CDC) test method. Performed By: #### L IPID, [address] eA ####[facility] [id number] VLDL CHOLESTEROL 34 mg/dL Normal [facility] Comment on above: Performed By: #### L IPID, A1C [facility] eA ####[facility] Ofu[address] [place] [id number] [facility] MR head/brain wo conon 07-03 MR head/brain wo con [facility] Main [place] [address] [place] [address] MRI Report Signed Patient: Shefali Riggs MR#: [id number] 187 : 1970 Acct:[id number] Age/Sex: 52 / F ADM Date: 07/02/22 Loc: Room: [address] [place] [address] Type: ADM INOo Attending Dr: Savanna Orellana [...] Sami Leung M.D.07/03/2022 2:29 PM Dictation Location: [place] [address] Transcribed By: [facility] 07/03/221428 Dictated By: Sami Leung II, MD 07/03/221421 Signed By: 07/03/221428 Normal [facility] Serum or plasma high density lipoprotein (HDL) cholesterol measurementOrdered By: Shari Kang on 07-03-2022 Cholesterol in HDL [Mass/Vol] 40 mg/dL 35-85 [facility] Comment on above: HDL CHOL ATP-III CLA SSIFICATION Cardiovascular RiskHDL > or equal to 60 mg/dL LOWHDL < 40 mg/dL HIGH Serum or plasma total choles terol/high density lipoprotein (HDL) cholesterol mass ratOrdered By: Shari Kang on 07-03-2022 Cholesterol.total/Chol esterol in HDL [Mass ratio] 3.8 {ratio} <5.0 [facility] TSH DL <= 0.005 mIU/L QnOrde red By: Patricia Ch on 07-03-2022 TSH Qn 1.84 m[IU]/L 0.45-5.33 [facility] Thyroid Stimulating Hormoneo n 07-03-2022 TSH Qn 1.84 m[IU]/L Normal 0.45-5.33 [facility] Comment on above: Order Comment: Shefali Pizano labs to prev drawn labs per ALONZO Vela please Ty PER HARIS Result Comment: PERF ORMED BY: [facility] [address] [place] [address] PATHOLOGIST REWARDS CONSULTANT KIRSTIN ALFORD M.D. Performed By: #### V [id number], TSH3 ####[facility] [id number] [place] [address] [facility] Triglyceride [Mass/volume] i n Serum or PlasmaOrdered By: Shari Kang on 07-03-2022 Triglyceride [Mass/Vol] 170 mg/dL 35-149 [facility] Comment on above: TRIG ATP III CLASSIF ICATIONTRIG less than 150 mg/dL NormalTRIG 150-199 mg/dL Borderline highTRIG 200-500 mg/dL High TRIG greater than 500 mg/dL Very highStandard traceable to the Center for Disease Conrtrol and Prevention (CDC) test method. Vit. B12/Folate Profileon Cobalamin (Vitamin B12) [Mass/Vol] 195 pg/mL Normal 180-914 [facility] Comment on above: Order Comment: jaycob gomes on Shefali Riggs labs to prev drawn labs per RN Dane please Ty PER HARIS Performed By: #### V [id number], TSH3 #### [address] Folate 21.0 ng/mL Normal >5.9 [facility] Comment on above: Order Comment: jaycob gomes on Shefali Riggs labs to prev drawn labs per ALONZO Vela please Ty PER HARIS Result Comment: Nissa te reference range: >5.9 ng/ml The WHO technical consultation on folate and vitamin b12 deficiencies has determined that folate concentrations less than 4 ng/ml are considered deficient. Performed By: #### V [id number], TSH3 #### [address] XR chest 1V portableon 07-03 XR chest 1V portable [facility] Main [place] [address] [place] [address] XRay Report Signed Patient: Shefali Riggs MR#: [id number] 187 : 1970 Acct:[id number] Age/Sex: 52 / F ADM Date: 07/02/22 Loc: Room: [address] [place] [address] Type: ADM IN Attending Dr: Savanna Orellana [...] Yohannes Ascencio M.D.07/03/2022 8:02 AM Dictation Location: [place] [address] Transcribed By: CONNIE 07/03/22801 Dictated By: Yohannes Ascencio DO 07/03/22801 Signed By: 07/03/22801 Normal [facility] Activated partial thrombopla stin time (aPTT) in platelet poor plasma by coagulation aOrdered By: Edward Christian on 07-02-2022 aPTT Coag (PPP) [Time] 29.4 s 25.1-36.5 [facility] Automated erythrocytes count in urine sediment (number/area)Ordered By: Edward Christian on 07-02-2022 RBC Auto (Urine sed) [#/Area] 3-4 [HPF] 0-4 [facility] Automated leukocytes count i n urine sediment (number/area)Ordered By: Edward Christian on 07-02-2022 WBC Auto (Urine sed) [#/Area] 5-9 [HPF] 0-4 [facility] Basic Metabolic Panelon 06-12 Anion gap [Moles/Vol] 17.0 mmol/L High 6.0-15.0 [facility] Comment on above: Performed By: #### C BC, PT, HS TROP, CK, CKMB, BMP, PTT ####[facility] [id number] [place] [address] [facility] Calcium [Mass/Vol] 9.3 mg/dL Normal 8.2-10.2 [facility] Comment on above: Performed By: #### C BC, PT, HS TROP, CK, CKMB, BMP, PTT ####[facility] [id number] [place] [address] [facility] Chloride [Moles/Vol] 98 mmol/L Normal 95-114 [facility] Comment on above: Performed By: #### C BC, PT, HS TROP, CK, CKMB, BMP, PTT ####[facility] [place] [address] [place] CO2 [Moles/Vol] 23.7 mmol/L Normal 22.0-30.0 [facility] Comment on above: Performed By: #### C BC, PT, HS TROP, CK, CKMB, BMP, PTT ####[place] [address] [place] [id number] [facility] Creatinine [Mass/Vol] 0.87 mg/dL Normal 0.44-1.03 [facility] Comment on above: Performed By: #### C BC, PT, HS TROP, CK, CKMB, BMP, PTT ####[place] [address] [address] Creatinine Clr Calc Pharmacy 83.99 [facility] Comment on above: Result Comment: PERF ORMED BY: [facility] [address] [place] [address] PATHOLOGIST REWARDS CONSULTANT KIRSTIN ALFORD M.D. Performed By: #### C BC, PT, HS TROP, CK, CKMB, BMP, PTT ####[address] Estimated GFR ( Denise > 60 [facility] Comment on above: Result Comment: GFR estimated reference range: According to KDOQI guidelines, <60 ml/min/1.73m2 is sufficient to diagnose a patient with chronic kidney disease. Performed By: #### C BC, PT, HS TROP, CK, CKMB, BMP, PTT ####[address] Estimated GFR (Non- Am > 60 [facility] Comment on above: Performed By: #### C BC, PT, HS TROP, CK, CKMB, BMP, PTT ####[place] [address] [place] [id number] [facility] Glucose [Mass/Vol] 111 mg/dL High 70-100 [facility] Comment on above: Result Comment: [place] Glucose Reference Range is dependent on time and content of last meal. Glucose of more than 200 mg/dL in a nonstressed, ambulatory subject supports the diagnosis of Diabetes Mellitus. ADA recommended reference range Performed By: #### C BC, PT, HS TROP, CK, CKMB, BMP, PTT ####[facility] [place] [id number] [facility] Potassium [Moles/Vol] 3.7 mmol/L Normal 3.5-5.1 [facility] Comment on above: Performed By: #### C BC, PT, HS TROP, CK, CKMB, BMP, PTT ####[place] [address] [place] [id number] [facility] Sodium [Moles/Vol] 135 mmol/L Low 136-146 [facility] Comment on above: Performed By: #### C BC, PT, HS TROP, CK, CKMB, BMP, PTT ####[place] [address] [address] Urea nitrogen [Mass/Vol] 10 mg/dL Normal 9-23 [facility] Comment on above: Performed By: #### C BC, PT, HS TROP, CK, CKMB, BMP, PTT ####[place] [address] [address] Basophils Auto (Bld) [#/Vol] Ordered By: Edward Christian on 07-02-2022 Basophils (Bld) [#/Vol] 0.1 10*3/uL 0.0-0.2 [facility] Basophils/100 WBC Auto (Bld) Ordered By: Edward Christian on 07-02-2022 Basophils/100 WBC (Bld) 0.8 % . [facility] Bilirubin Test strip Ql (U)O rdered By: Edward Christian on 07-02-2022 Bilirubin Ql (U) Negative Negative [facility] Color Auto (U)Ordered By: Malachi Christian on 07-02-2022 Color (U) Yellow Yellow [facility] Complete Blood Count Auto Di ffon 07-02-2022 Basophils (Bld) [#/Vol] 0.1 10*3/uL Normal 0.0-0.2 [facility] Comment on above: Result Comment: PERF ORMED BY: [facility] [address] [place] [id number] PATHOLOGIST REWARDS CONSULTANT JIANLAN SUN M.D. Performed By: #### C BC, PT, HS TROP, CK, CKMB, BMP, PTT ####[address] Basophils/100 WBC (Bld) 0.8 % Normal . [facility] System Comment on above: Performed By: #### C BC, PT, HS TROP, CK, CKMB, BMP, PTT ####[address] Eosinophils (Bld) [#/Vol] 0.7 10*3/uL High 0.0-0.45 [facility] Comment on above: Performed By: #### C BC, PT, HS TROP, CK, CKMB, BMP, PTT ####[address] Eosinophils/100 WBC (Bld) 6.4 % Normal . [facility] Comment on above: Performed By: #### C BC, PT, HS TROP, CK, CKMB, BMP, PTT ####[address] Erythrocyte distribution width (RBC) [Ratio] 13.6 % Normal 11.9-15.3 [facility] Comment on above: Performed By: #### C BC, PT, HS TROP, CK, CKMB, BMP, PTT ####[address] Hematocrit (Bld) [Volume fraction] 46.6 % High 34.0-46.4 [facility] Comment on above: Performed By: #### C BC, PT, HS TROP, CK, CKMB, BMP, PTT ####[address] Hemoglobin (Bld) [Mass/Vol] 15.9 g/dL High 11.8-15.4 [facility] Comment on above: Performed By: #### C BC, PT, HS TROP, CK, CKMB, BMP, PTT ####[address] Lymphocytes (Bld) [#/Vol] 3.3 10*3/uL Normal 1.00-4.8 [facility] Comment on above: Performed By: #### C BC, PT, HS TROP, CK, CKMB, BMP, PTT ####[address] Lymphocytes/100 WBC (Bld) 30.5 % Normal . [facility] Comment on above: Performed By: #### C BC, PT, HS TROP, CK, CKMB, BMP, PTT ####[address] MCH (RBC) [Entitic mass] 31.6 pg Normal 24.7-34.3 [facility] Comment on above: Performed By: #### C BC, PT, HS TROP, CK, CKMB, BMP, PTT ####[address] MCV (RBC) [Entitic vol] 92.3 fL Normal 80-100 [facility] Comment on above: Performed By: #### C BC, PT, HS TROP, CK, CKMB, BMP, PTT ####[address] Mean Corpuscular HGB Conc 34.2 g/dL Normal 32.0-35.0 [facility] Comment on above: Performed By: #### C BC, PT, HS TROP, CK, CKMB, BMP, PTT ####[address] Monocytes (Bld) [#/Vol] 1.5 10*3/uL High 0.0-0.8 [facility] Comment on above: Performed By: #### C BC, PT, HS TROP, CK, CKMB, BMP, PTT ####[address] Monocytes/100 WBC (Bld) 18.05 % Normal 0.00-20.00 [facility] Comment on above: Performed By: #### C BC, PT, HS TROP, CK, CKMB, BMP, PTT ####[place] [address] Monocytes/100 WBC (Bld) 14.0 % Normal . [facility] Comment on above: Performed By: #### C BC, PT, HS TROP, CK, CKMB, BMP, PTT ####[address] Neutrophils (Bld) [#/Vol] 5.2 10*3/uL Normal 1.8-7.7 [facility] Comment on above: Performed By: #### C BC, PT, HS TROP, CK, CKMB, BMP, PTT ####[address] Neutrophils/100 WBC (Bld) 48.3 % Normal . [facility] Comment on above: Performed By: #### C BC, PT, HS TROP, CK, CKMB, BMP, PTT ####[address] NRBC% 0.2 /100{WBC} Normal 0-0.5 [facility] Comment on above: Performed By: #### C BC, PT, HS TROP, CK, CKMB, BMP, PTT ####[address] Platelet mean volume (Bld) [Entitic vol] 8.4 fL Normal 6.3-10.7 [facility] Comment on above: Performed By: #### C BC, PT, HS TROP, CK, CKMB, BMP, PTT ####[address] Platelets (Bld) [#/Vol] 302 10*3/uL Normal 150-450 [facility] Comment on above: Performed By: #### C BC, PT, HS TROP, CK, CKMB, BMP, PTT ####[address] RBC (Bld) [#/Vol] 5.04 10*6/uL High 3.60-5.00 [facility] Comment on above: Performed By: #### C BC, PT, HS TROP, CK, CKMB, BMP, PTT ####[facility] [place], [place] [address] WBC (Bld) [#/Vol] 10.8 10*3/uL Normal 3.8-11.6 [facility] Comment on above: Performed By: #### C BC, PT, HS TROP, CK, CKMB, BMP, PTT ####[address] Creatine Kinaseon 07-02-2022 CK [Catalytic activity/Vol] 140 U/L Normal [facility] Comment on above: Performed By: #### C BC, PT, HS TROP, CK, CKMB, BMP, PTT ####[address] Creatine kinase [Enzymatic a ctivity/volume] in Serum or PlasmaOrdered By: Edward Christian on 07-02-2022 CK [Catalytic activity/Vol] 140 U/L [facility] Creatinine (Bld) [Mass/Vol]O rdered By: Shari Kang on 07-02-2022 Creatinine [Mass/Vol] 0.9 mg/dL 0.6-1.3 [facility] Comment on above: ER/ESD physician is notified/shown all ISTAT results.Critical values may be confirmed by laboratory testing ifdeemed necessary by ER attending doctor. Creatinine Kinase MBon 07-02 CK.MB [Mass/Vol] 1.9 ng/mL Normal 0.6-6.3 [facility] Comment on above: Performed By: #### C BC, PT, HS TROP, CK, CKMB, BMP, PTT ####[place] [id number] [facility] CKMB Relative Index 1.3 % Normal 0.00-2.50 [facility] Comment on above: Performed By: #### C BC, PT, HS TROP, CK, CKMB, BMP, PTT ####[address] Creatinine and Glomerular fi ltration rate.predicted panel (S/P/Bld)Ordered By: Edward Christian on 07-02-2022 Creatinine [Mass/Vol] 0.87 mg/dL 0.44-1.03 [facility] Dipstick and Microscopicon 0 07-02-2022 Appearance (U) Clear Normal Clear [facility] Comment on above: Order Comment: Name Collection Type:: Clean-Voided Midstream Performed By: #### C UU, ADDONUAPLUS #### [facility] [address] [place] [address] Bacteria,Urine None Seen Normal None Seen [facility] Comment on above: Order Comment: Name Collection Type:: Clean-Voided Midstream Performed By: #### C UU, ADDONUAPLUS #### [place] [address] [place] Bilirubin,Urine Negative Normal Negative [facility] Comment on above: Order Comment: Name Collection Type:: Clean-Voided Midstream Performed By: #### C UU, ADDONUAPLUS #### [address] Color (U) Yellow Normal Yellow [facility] Comment on above: Order Comment: Name Collection Type:: Clean-Voided Midstream Performed By: #### C UU, ADDONUAPLUS #### [address] Glucose Ql (U) Normal Normal Normal [facility] Comment on above: Order Comment: Name Collection Type:: Clean-Voided Midstream Performed By: #### C UU, ADDONUAPLUS #### [place] [address] [place] Hyaline Casts,Urine 0-8 Normal 0-8 [facility] Comment on above: Order Comment: Name Collection Type:: Clean-Voided Midstream Result Comment: PERF ORMED BY: [place] [address] PATHOLOGIST [employer]AR[employer] CONSULTANT KIRSTIN ALFORD M.D. Performed By: #### C UU, ADDONUAPLUS #### [address] Ketones Ql (U) Negative Normal Negative [facility] Comment on above: Order Comment: Name Collection Type:: Clean-Voided Midstream Performed By: #### C UU, ADDONUAPLUS #### [facility] [address] [place] [address] Leukocyte esterase Test strip Ql (U) 1+ High Negative [facility] Comment on above: Order Comment: Name Collection Type:: Clean-Voided Midstream Performed By: #### C UU, ADDONUAPLUS #### [facility] [address] [place] [address] [place] Nitrite,Urine Negative Normal Negative [facility] Comment on above: Order Comment: Name Collection Type:: Clean-Voided Midstream Performed By: #### C UU, ADDONUAPLUS #### [address] Occult Blood,Urine Negative Normal Negative [facility] Comment on above: Order Comment: Name Collection Type:: Clean-Voided Midstream Result Comment: PERF ORMED BY: [place] [address] PATHOLOGIST [employer] CONSULTANT KIRSTIN ALFORD M.D. Performed By: #### C UU, ADDONUAPLUS #### [facility] [address] [place] [address] pH (U) 5.5 [pH] Normal 5.0-9.0 [facility] Comment on above: Order Comment: Name Collection Type:: Clean-Voided Midstream Performed By: #### C UU, ADDONUAPLUS #### [facility] [address] [place] [address] [place] Protein,Urine Negative Normal Negative [facility] Comment on above: Order Comment: Name Collection Type:: Clean-Voided Midstream Performed By: #### C UU, ADDONUAPLUS #### [place] [address] [place] RBC,Urine 3-4 Normal 0-4 [facility] Comment on above: Order Comment: Name Collection Type:: Clean-Voided Midstream Performed By: #### C UU, ADDONUAPLUS #### [facility] [address] [place] [address] Specificy [place],Urine 1.003 Normal 1.001-1.03 0 [facility] Comment on above: Order Comment: Name Collection Type:: Clean-Voided Midstream Performed By: #### C UU, ADDONUAPLUS #### [address] Squamous Epithelial Cell,Urine 1-2 Normal 0-2 [facility] Comment on above: Order Comment: Name Collection Type:: Clean-Voided Midstream Performed By: #### C UU, ADDONUAPLUS #### [address] Urobilinogen,Urine Normal Normal Normal [facility] Comment on above: Order Comment: Name Collection Type:: Clean-Voided Midstream Performed By: #### C UU, ADDONUAPLUS #### [address] WBC,Urine 5-9 High 0-4 [facility] Comment on above: Order Comment: Name Collection Type:: Clean-Voided Midstream Performed By: #### C UU, ADDONUAPLUS #### [address] ECG 12 lead ECGon 07-02-2022 ECG 12 lead ECG [facility] [place] [address] [place] [address] Electrocardiograph Report Signed Patient: Shefali Riggs MR#: [id number] : 1970 Acct:[id number] Age/Sex: 52 / F ADM Date: 07/02/22 Loc: Room: [address] [place] [address] Type: DIS INOo Attending Dr: Savanna Orellana [...] sinus rhythm Confirmed by Micah VALDERRAMA DO ([id number]) on 07/02/2022 8:51:25 PM Referred By: Electronically Signed By:Micah VALDERRAMA DO Transcribed By: MUS Signed By Micah Valderrama DO 0 07/02/222050 Normal [facility] Eosinophils Auto (Bld) [#/Vo l]Ordered By: Edward Christian on 07-02-2022 Eosinophils (Bld) [#/Vol] 0.7 10*3/uL 0.0-0.45 [facility] Eosinophils/100 WBC Auto (Bl d)Ordered By: Edward Christian on 07-02-2022 Eosinophils/100 WBC (Bld) 6.4 % . [facility] Erythrocyte distribution wid th Auto (RBC) [Ratio]Ordered By: Edward Christian on 07-02-2022 Erythrocyte distribution width (RBC) [Ratio] 13.6 % 11.9-15.3 [facility] Estimated glomerular filtrat ion rate (GFR) non- AmericanOrdered By: Edward Christian on 07-02-2022 GFR/1.73 sq M.predicted among non-blacks MDRD (S/P/Bld) [Vol rate/Area] > 60 mL/Min [facility] Glucose Glucometer (BldC) [M ass/Vol]Ordered By: Edward Christian on 07-02-2022 Glucose [Mass/Vol] 140 mg/dL [facility] Comment on above: Random Glucose Refer ence Range is dependent on time and content of last meal. Glucose of more than 200 mg/dL in a nonstressed, ambulatory subject supports the diagnosis of Diabetes Mellitus. Glucose Poct Glucometerson 0 07-02-2022 Commemt1 [facility] Comment on above: Result Comment: Glu2 : WILL NOTIFY DR/RN Performed By: #### G LULS #### Point of Care testing , Commemt2 Cleaned Meter [facility] Comment on above: Result Comment: PERF ORMED BY: [facility] [address] [place] [address] PATHOLOGIST [employer]AR[employer] CONSULTANT KIRSTIN ALFORD M.D. Performed By: #### G LULS #### Point of Care testing , Glucose [Mass/Vol] 140 mg/dL Normal [facility] Comment on above: Result Comment: [place] Glucose Reference Range is dependent on time and content of last meal. Glucose of more than 200 mg/dL in a nonstressed, ambulatory subject supports the diagnosis of Diabetes Mellitus. Performed By: #### G LULS #### Point of Care testing , Hematocrit Auto (Bld) [Volum e fraction]Ordered By: Edward Christian on 07-02-2022 Hematocrit (Bld) [Volume fraction] 46.6 % 34.0-46.4 [facility] Hemoglobin [Mass/volume] in BloodOrdered By: Edward Christian on 07-02-2022 Hemoglobin (Bld) [Mass/Vol] 15.9 g/dL 11.8-15.4 [facility] ISTAT XRay CREon 07-02-2022 Creatinine [Mass/Vol] 0.9 mg/dL Normal 0.6-1.3 [facility] Comment on above: Result Comment: ER/E SD physician is notified/shown all ISTAT results. Critical values may be confirmed by laboratory testing if deemed necessary by ER attending doctor. Performed By: #### I SCRE #### [address] Point of Care testing , ISTAT GFR ( > 60 Normal [facility] Comment on above: Result Comment: GFR estimated reference range: According to KDOQI guidelines, <60 ml/min/1.73m2 is sufficient to diagnose a patient with chronic kidney disease. PERFORMED BY: [place] [address] PATHOLOGIST RE[employer]AR[employer] CONSULTANT KIRSTIN ALFORD M.D. Performed By: #### I SCRE #### [address] Point of Care testing , ISTAT GFR (Non- Am > 60 Normal [facility] Comment on above: Performed By: #### I SCRE #### [place] [id number] [place] Point of Care testing , Ketones Auto test strip (U) [Mass/Vol]Ordered By: Edward Christian on 07-02-2022 Ketones (U) [Mass/Vol] Negative Negative [facility] Laboratory - CoagulationOrde red By: Edward Christian on 07-02-2022 PT Coag (PPP) [Time] 10.8 s 9.0-12.9 [facility] Laboratory - UrinalysisOrder ed By: Edward Christian on 07-02-2022 Hyaline casts LM Ql (Urine sed) 0-8 [LPF] 0-8 [facility] Leukocytes [#/volume] correc dario for nucleated erythrocytes in Blood by Automated counOrdered By: Edward Christian on 07-02-2022 WBC corrected for nucl RBC Auto (Bld) [#/Vol] 10.8 10*3/uL 3.8-11.6 [facility] Lymphocytes Auto (Bld) [#/Vo l]Ordered By: Edward Christian on 07-02-2022 Lymphocytes (Bld) [#/Vol] 3.3 10*3/uL 1.00-4.8 [facility] Lymphocytes/100 WBC Auto (Bl d)Ordered By: Edward Christian on 07-02-2022 Lymphocytes/100 WBC (Bld) 30.5 % . [facility] MCH Auto (RBC) [Entitic mass ]Ordered By: Edward Christian on 07-02-2022 MCH (RBC) [Entitic mass] 31.6 pg 24.7-34.3 [facility] MCHC Auto (RBC) [Mass/Vol]Or dered By: Edward Christian on 07-02-2022 MCHC (RBC) [Mass/Vol] 34.2 g/dL 32.0-35.0 [facility] MCV Auto (RBC) [Entitic vol] Ordered By: Edward Christian on 07-02-2022 MCV (RBC) [Entitic vol] 92.3 fL 80-100 [facility] Monocyte distribution width [Entitic volume] in Blood by AutomatedOrdered By: Edward Christian on 07-02-2022 Monocyte distribution width Auto (Bld) [Entitic vol] 18.05 % 0.00-20.00 [facility] Monocytes Auto (Bld) [#/Vol] Ordered By: Edward Christian on 07-02-2022 Monocytes (Bld) [#/Vol] 1.5 10*3/uL 0.0-0.8 [facility] Monocytes/100 WBC Auto (Bld) Ordered By: Edward Christian on 07-02-2022 Monocytes/100 WBC (Bld) 14.0 % . [facility] Neutrophils Auto (Bld) [#/Vo l]Ordered By: Edward Christian on 07-02-2022 Neutrophils (Bld) [#/Vol] 5.2 10*3/uL 1.8-7.7 [facility] Neutrophils/100 WBC Auto (Bl d)Ordered By: Edward Christian on 07-02-2022 Neutrophils/100 WBC (Bld) 48.3 % . [facility] Nitrite Test strip Ql (U)Ord ered By: Edward Christian on 07-02-2022 Nitrite Ql (U) Negative Negative [facility] No Panel InformationOrdered By: Shari Kang on 07-02-2022 POC Estimated GFR > 60 [facility] Comment on above: GFR estimated refere nce range: According to KDOQI guidelines, <60 ml/min/1.73m2 is sufficient to diagnose a patient with chronic kidney disease. POC Estimated GFR Non- Amer > 60 [facility] No Panel InformationOrdered By: Edward Christian on 07-02-2022 Estimated GFR () > 60 mL/Min [facility] Comment on above: GFR estimated refere nce range: According to KDOQI guidelines, <60 ml/min/1.73m2 is sufficient to diagnose a patient with chronic kidney disease. Pharmacy Creatinine Clearance (Chem 83.99 [facility] Bedside Glucose #2 Comment Cleaned meter [facility] Bedside Glucose Comment See comment [facility] Comment on above: Glu2: WILL NOTIFY /RN Nucleated erythrocytes [Pres ence] in Blood by Automated countOrdered By: Edward Christian on 07-02-2022 Nucleated RBC Auto Ql (Bld) 0.2 /100{WBC} 0-0.5 [facility] Partial Thromboplastin Timeo n 07-02-2022 aPTT Coag (Bld) [Time] 29.4 s Normal 25.1-36.5 [facility] Comment on above: Result Comment: PERF ORMED BY: [facility] [address] [place] [address] PATHOLOGIST RE[employer]AR[employer] CONSULTANT KIRSTIN ALFORD M.D. Performed By: #### C BC, PT, HS TROP, CK, CKMB, BMP, PTT ####[facility] [id number] [facility] [place] [address] [facility] Platelet mean volume Auto (B ld) [Entitic vol]Ordered By: Edward Christian on 07-02-2022 Platelet mean volume (Bld) [Entitic vol] 8.4 fL 6.3-10.7 [facility] Platelet poor plasma interna tional normalized ratio (INR) by coagulation assay (relatOrdered By: Edward Christian on 07-02-2022 INR Coag (PPP) [Relative time] 0.9 {INR} [facility] Comment on above: INR Therapeutic Rang e [...] 07-02-2022 Platelets (Bld) [#/Vol] 302 10*3/uL 150-450 [facility] Protein Auto test strip (U) [Mass/Vol]Ordered By: Edward Christian on 07-02-2022 Protein (U) [Mass/Vol] Negative Negative [facility] Prothrombin Time INRon 07-02 INR Coag (PPP) [Relative time] 0.9 {INR} Normal [facility] Comment on above: Result Comment: INR Therapeutic [...] PT, HS TROP, CK, CKMB, BMP, PTT ####[facility] [id number] [place] [id number] [facility] PT Coag (PPP) [Time] 10.8 s Normal 9.0-12.9 [facility] Comment on above: Performed By: #### C BC, PT, HS TROP, CK, CKMB, BMP, PTT ####[facility] [id number] [place] [id number] [facility] RBC Auto (Bld) [#/Vol]Ordere d By: Edward Christian on 07-02-2022 RBC (Bld) [#/Vol] 5.04 10*6/uL 3.60-5.00 [facility] Serum or plasma anion gap de terminationOrdered By: Edward Christian on 07-02-2022 Anion gap [Moles/Vol] 17.0 mmol/L 6.0-15.0 [facility] Serum or plasma calcium priya urement (mass/volume)Ordered By: Edward Christian on 07-02-2022 Calcium [Mass/Vol] 9.3 mg/dL 8.2-10.2 [facility] Serum or plasma chloride arielle surement (moles/volume)Ordered By: Edward Christian on 07-02-2022 Chloride [Moles/Vol] 98 mmol/L 95-114 [facility] Serum or plasma creatine kin ase MB (CKMB)/total creatine kinase (CK) ratio by calculaOrdered By: Edward Christian on 07-02-2022 CK.MB Calc [Catalytic fraction] 1.3 % 0.00-2.50 [facility] Serum or plasma creatine kin ase MB measurement (mass/volume)Ordered By: Edward Christian on 07-02-2022 CK.MB [Mass/Vol] 1.9 ng/mL 0.6-6.3 [facility] Serum or plasma glucose priya urement (mass/volume)Ordered By: Edward Christian on 07-02-2022 Glucose [Mass/Vol] 111 mg/dL 70-100 [facility] Comment on above: ADA recommended refe rence rangeRandom Glucose Reference Range is dependent on time and content of last meal. Glucose of more than 200 mg/dL in a nonstressed, ambulatory subject supports the diagnosis of Diabetes Mellitus. Serum or plasma potassium me asurement (moles/volume)Ordered By: Edward Christian on 07-02-2022 Potassium [Moles/Vol] 3.7 mmol/L 3.5-5.1 [facility] Serum or plasma sodium measu rement (moles/volume)Ordered By: Edward Christian on 07-02-2022 Sodium [Moles/Vol] 135 mmol/L 136-146 [facility] Serum or plasma total carbon dioxide measurement (moles/volume)Ordered By: Edward Christian on 07-02-2022 CO2 [Moles/Vol] 23.7 mmol/L 22.0-30.0 [facility] Serum or plasma urea nitroge n measurement (mass/volume)Ordered By: Edward Christian on 07-02-2022 Urea nitrogen [Mass/Vol] 10 mg/dL - [facility] Specific gravity Auto test s trip (U) [Rel density]Ordered By: Edward Christian on 07-02-2022 Specific gravity (U) [Rel density] 1.003 1.001-1.03 0 [facility] Squamous epithelial cells de tection in urine sediment by light microscopyOrdered By: Edward Christian on 07-02-2022 Epithelial cells.squamous LM Ql (Urine sed) 1-2 [HPF] 0-2 [facility] Troponin I High Sensitivityo n 07-02-2022 Troponin I High Sensitivity 4 pg/mL Normal 0-15 [facility] Comment on above: Result Comment: PERF ORMED BY: [facility] [address] [place] [address] PATHOLOGIST REWARDS CONSULTANT KIRSTIN ALFORD M.D. Performed By: #### C BC, PT, HS TROP, CK, CKMB, BMP, PTT ####[facility] [id number] [place] [address] [facility] Troponin I.cardiac [Mass/vol ume] in Serum or Plasma by High sensitivity methodOrdered By: Edward Christian on 07-02-2022 Troponin I.cardiac High sensitivity method [Mass/Vol] 4 pg/mL 0-15 [facility] Urine Cultureon 07-02-2022 Bacteria identified Cx Nom (U) 20,000 colonies/ml mixed bacterial skin contaminants 2 Days PERFORMED BY: [place] [address] PATHOLOGIST REWARDS CONSULTANT KIRSTIN ALFORD M.D. Normal [facility] Comment on above: Performed By: #### C UU, ADDONUAPLUS #### [address] Urine bacteria detection by automated methodOrdered By: Edward Christian on 07-02-2022 Bacteria Auto Ql (U) None seen None Seen [facility] Urine clarity by refractomet ry automatedOrdered By: Edward Christian on 07-02-2022 Clarity Refractometry automated (U) Clear Clear [facility] Urine culture routineOrdered By: Edward Christian on 07-02-2022 Bacteria identified Cx Nom (U) 2 Days [facility] Urine glucose measurement by automated test strip (mass/volume)Ordered By: Edward Christian on 07-02-2022 Glucose Auto test strip (U) [Mass/Vol] Normal mg/dL Normal [facility] Urine hemoglobin detection b y automated test stripOrdered By: Edward Christian on 07-02-2022 Hemoglobin Auto test strip Ql (U) Negative Negative [facility] Urine leukocyte esterase det ection by automated test stripOrdered By: Edward Christian on 07-02-2022 Leukocyte esterase Auto test strip Ql (U) 1+ Negative [facility] Urobilinogen Auto test strip (U) [Mass/Vol]Ordered By: Edward Christian on 07-02-2022 Urobilinogen (U) [Mass/Vol] Normal mg/dL Normal [facility] WBC Auto (Bld) [#/Vol]Ordere d By: Edward Christian on 07-02-2022 WBC (Bld) [#/Vol] 10.8 10*3/uL 3.8-11.6 [facility] pH Auto test strip (U)Ordere d By: Edward Christian on 07-02-2022 pH (U) 5.5 [pH] 5.0-9.0 [facility] Physician Referralon Physician Referral [id number] Normal [facility] PAP ACOG PANEL 2: 21 to 29on 04-28-2022 . . Normal [facility] Comment on above: Result Comment: Perf ormed at: WB Performed By: #### [id number] #### [facility] [address] [place] [address] [address] Alley Ochoa Age Gdln ACOG Testing Normal [facility] Comment on above: Performed By: #### [id number] #### [facility] [address] [address] [address] Alley Ochoa DIAGNOSIS: Comment Abnormal [facility] Comment on above: Result Comment: EPIT HELIAL CELL ABNORMALITY. LOW GRADE SQUAMOUS INTRAEPITHELIAL LESION (LSIL). Performed at: WB Performed By: #### [id number] #### [facility] [address] [address] [address] Alley Ochoa Electronically signed by: Comment Normal [facility] Comment on above: Result Comment: Bon Padgett MD, Pathologist Performed at: WB Performed By: #### [id number] #### [facility] [address] [address] [address] Alley Ochoa HPV Aptima Positive Abnormal Negative [facility] Comment on above: Result Comment: This nucleic acid amplification test detects fourteen high-risk HPV types (16,18,31,33,35,39,45,51,52,56,58,59,66,68) without differentiation. Performed at: =G Performed By: #### [id number] #### [facility] [address] [address] [address] Alley Ochoa HPV Genotype Reflex Comment Normal [facility] Comment on above: Result Comment: Crit eria not met, HPV Genotype not performed. Performed at: WB Performed By: #### [id number] #### [facility] [address] [place] [address] Dr. Alley Ochoa Methodology: Comment [facility] Comment on above: Result Comment: This liquid based ThinPrep(R) pap test was screened with the use of an image guided system. Performed at: WB Performed By: #### [id number] #### [facility] [address] [place] [address] Dr. Alley Ochoa Note: Comment Normal [facility] Comment on above: Result Comment: The Pap smear is a screening test designed to aid in the detection of premalignant and malignant conditions of the uterine cervix. It is not a diagnostic procedure and should not be used as the sole means of detecting cervical cancer. Both false-positive and false-negative reports do occur. . Performed at: WB Performed By: #### [id number] #### [facility] [address] [place] [address] Dr. Alley Ochoa Pathologist Provided ICD10 Comment Normal [facility] Comment on above: Result Comment: [id number] Performed at: WB Performed By: #### [id number] #### [facility] [address] [place] [address] Dr. Alley Ochoa Performed by: Comment Normal [facility] Comment on above: Result Comment: Demi Pelaez, Hand Shoes Sewer Performed at: WB Performed By: #### [id number] #### [facility] [address] [place] [address] Dr. Alley Ochoa Specimen adequacy: Comment Normal [facility] Comment on above: Result Comment: Sati sfactory for evaluation. No endocervical component is identified. Performed at: WB Performed By: #### [id number] #### [facility] [address] [place] [address] Dr. Alley Ochoa COVID/FLU RT-PCRon SARS-CoV-2 (COVID-19) RNA SCOTTY+probe Ql (Unsp spec) Negative [facility] Other COVID/FLU RT-PCR Negative [facility] [employer] Other Quick Strepon 04-14-2022 S. pyogenes Org specific cx Ql (Throat) Negative [facility] Other Quick Strep [employer] Other Cardiac Stress Teston 2021 Cardiac Stress Test [facility] dusky [address] [place] [address], [address] [place] [address] Exercise Stress Test Patient Name: SHEFALI Ordering Physician: [id number] Jerome Pelaez NP OCKLAWAHA Study Date: 02/22/2022 Reading Physician: [id number] Rosio Riojas MD MRN/PID: [id number] Supervising Physician: Jorge A Riojas MD Accession/Order#: [id number] Referring Physician: JEROME PELAEZ Date of : 1970 PCP: Osiel Pettit MD Gender: F Fellow: Height: 162.56 cm Nurse: Zuleyma Bell RN Weight: 74.84 kg Endless Belt Finisher: MANINDER BSA: 1.80 m2 Technologist: BMI: 28.32 kg/m2 Additional Staff: Age: 52 years cc report to: Patient Location: cc report to: [id number] Jerome Pelaez NP Study Type: Cardiac Stress Test Diagnosis/ICD: I25.10-Atherosclerotic heart disease Indication: Pre-Op Evaluation Procedure/CPT: Stress Test Interpretation-[id number]; Stress Test Supervision-[id number] Falls Risk: Low: Patient has low risk [...] The adequate level of stress was achieved. [id number] Rosio Riojas MD Electronically signed on 02/22/2022 at 4:37:00 PM Final Normal [facility] Office Visit (Cardiology)on 02-01-2022 Follow-up visit Diagnoses/Problems Assessed Atherosclerosis of coronary artery of [place] heart without angina pectoris (414.01) (I25.10) Jun [...] health. Orders Atherosclerosis of coronary artery of [place] heart without angina pectoris Start: Furosemide 20 MG Oral Tablet; Take one tablet daily as needed Cardiac Stress Test; Status:Hold For - Scheduling; Requested for:[id number]; BMI 28.0-28.9,adult Healthy Weight Tips; Status:Complete; Done: 01Feb2022 SocHx: Current every day smoker Tobacco Use Screening; Status:Complete; Done: [id number] Tobacco Use Screening; Status:Complete; Done: [id number] Patient Instructions Please bring all medicines, vitamins, [...] Screening.on 022 Adult depression screening assessment No [facility] [facility] 250 DO Work Phone: Tobacco use status CPHS a) Yes [facility] [facility] 250 DO Work Phone: Tobacco Screening. Yes [facility] 250 DO Work Phone: CBC AUTO DIFFon 01-31-2022 BASO # 0.1 103/ul Normal 0.0-0.1 [facility] Comment on above: Performed By: #### C BC #### [facility] [address] [place] [address] Dr. Alley Ochoa Basophils/100 WBC (Bld) 0.6 % Normal 0.2-2.0 [facility] Comment on above: Performed By: #### C BC #### [facility] [address] [place] [address] Dr. Alley Ochoa EO # 0.5 103/ul Normal 0.0-0.7 [facility] Comment on above: Performed By: #### C BC #### [facility] [address] [place] [address] Dr. Alley Ochoa Eosinophils/100 WBC (Bld) 4.5 % Normal 0.9-7.0 [facility] Comment on above: Performed By: #### C BC #### [facility] [address] [place] [address] Dr. Alley Ochoa Erythrocyte distribution width (RBC) [Ratio] 13.2 % Normal 11.0-15.0 [facility] Comment on above: Performed By: #### C BC #### [facility] [address] [place] [address] Dr. Alley Ochoa Hematocrit (Bld) [Volume fraction] 47.2 % Normal 36.0-48.0 [facility] Comment on above: Performed By: #### C BC #### [facility] [address] [place] [address] Dr. Alley Ochoa Hemoglobin (Bld) [Mass/Vol] 15.9 g/dL Normal 12.0-16.0 [facility] Comment on above: Performed By: #### C BC #### [facility] [address] [place] [address] Dr. Alley Ochoa IG # 0.06 10e3/ul Critically high 0.00-0.03 [facility] Comment on above: Performed By: #### C BC #### [facility] [address] [place] [address] Dr. Alley Ochoa IG % 0.5 % Normal 0.0-0.5 [facility] Comment on above: Performed By: #### C BC #### [facility] [address] [place] [address] Dr. Alley Ochoa LYMPH # 2.0 103/ul Normal 1.2-3.8 [facility] Comment on above: Performed By: #### C BC #### [facility] [address] [place] [address] Dr. Alley Ochoa Lymphocytes/100 WBC (Bld) 17.8 % Critically low 20.5-60.0 [facility] Comment on above: Performed By: #### C BC #### [facility] [address] [place] [address] Dr. Alley Ochoa MANUAL DIFF REQ NO Normal [facility] Comment on above: Performed By: #### C BC #### [facility] [address] [place] [address] Dr. Alley Ochoa MCH (RBC) [Entitic mass] 31.2 pg Normal 26.7-34.0 [facility] Comment on above: Performed By: #### C BC #### [facility] [address] [place] [address] Dr. Alley Ochoa MCHC (RBC) [Mass/Vol] 33.7 g/dL Normal 29.9-35.2 [facility] Comment on above: Performed By: #### C BC #### [facility] [address] [place] [address] Dr. Alley Ochoa MCV (RBC) [Entitic vol] 92.5 fL Normal 81.0-99.0 [facility] Comment on above: Performed By: #### C BC #### [facility] [address] [place] [address] Dr. Alley Ochoa MONO # 1.3 103/ul Critically high 0.3-0.8 [facility] Comment on above: Performed By: #### C BC #### [facility] [address] [place] [address] Dr. Alley Ochoa Monocytes/100 WBC (Bld) 11.5 % Normal 1.7-12.0 [facility] Comment on above: Performed By: #### C BC #### [facility] [address] [place] [address] Dr. Alley Ochoa NEUT # 7.2 103/ul Critically high 1.4-6.5 [facility] Comment on above: Performed By: #### C BC #### [facility] [address] [place] [address] Dr. Alley Ochoa Neutrophils/100 WBC (Bld) 65.1 % Normal 43.0-75.0 [facility] Comment on above: Performed By: #### C BC #### [facility] [address] [place] [address] Dr. Alley Ochoa Platelet mean volume (Bld) [Entitic vol] 10.0 fL Normal 9.5-13.5 [facility] Comment on above: Performed By: #### C BC #### [facility] [address] [place] [address] Dr. Alley Ochoa PLT 273 103/ul Normal 150-450 [facility] Comment on above: Performed By: #### C BC #### [facility] [address] [place] [address] Dr. Alley Ochoa RBC 5.10 106/ul Normal 4.20-5.40 [facility] Comment on above: Performed By: #### C BC #### [facility] [address] [place] [address] Dr. Alley Ochoa WBC 11.0 103/ul Normal 4.0-11.0 [facility] Comment on above: Performed By: #### C BC #### [facility] [address] [place] [address] Dr. Alley Ochoa GLYCOHEMOGLOBIN A1Con 2021 ADA RECOMMENDATION SEE BELOW Normal [facility] Comment on above: Result Comment: ADA RECOMMENDED LIMIT 4.0 - 6.0 ADA THERAPEUTIC TARGET < 7.0 ACTION SUGGESTED > 7.0 Performed By: #### A 1C #### [facility] [address] [place] [address] Dr. Alley Ochoa Glucose [Mass/Vol] 120 mg/dL Normal [facility] Comment on above: Performed By: #### A 1C #### [facility] [address] [place] [address] Dr. Alley Ochoa HbA1c (Bld) [Mass fraction] 5.8 % Normal 4.5-6.2 [facility] Comment on above: Performed By: #### A 1C #### [facility] [address] [place] [address] Dr. Alley Ochoa LIPID PROFILEon 01-31-2022 CHOL-HDL RATIO NORM SEE BELOW Normal [facility] Comment on above: Result Comment: 3.3 - 4.4 LOW RISK 4.4 - 7.1 AVERAGE RISK 7.1 - 11.0 MODERATE RISK >11.0 HIGH RISK Performed By: #### C MP, LIPID #### [facility] [address] [address] [address] Alley Ochoa Cholesterol [Mass/Vol] 156 mg/dL Normal <=200 [facility] Comment on above: Performed By: #### C MP, LIPID #### [facility] [address] [address] [address] Alley Ochoa Cholesterol in HDL [Mass/Vol] 42 mg/dL Normal 40-60 [facility] Comment on above: Performed By: #### C MP, LIPID #### [facility] [address] [address] [address] Alley Ochoa Cholesterol in LDL [Mass/Vol] 65.0 mg/dL Normal [facility] Comment on above: Performed By: #### C MP, LIPID #### [facility] [address] [place] [address] Dr. Alley Ochoa Cholesterol.total/Chol esterol in HDL [Mass ratio] 3.7 {ratio} Normal [facility] Comment on above: Performed By: #### C MP, LIPID #### [facility] [address] [address] [address] Alley Ochoa HDL NORMAL > or = 60 mg/dl - LO W CARDIOVASCULAR RISK <40 mg/dl - HIGH CARDIOVASCULAR RISK Normal [facility] Comment on above: Performed By: #### C MP, LIPID #### [facility] [address] [address] [address] Alley Ochoa LDL CALC NORMAL SEE BELOW Normal [facility] Comment on above: Result Comment: <100 mg/dl OPTIMAL 100 - 129 mg/dl NEAR OR ABOVE OPTIMAL 130 - 159 mg/dl BORDERLINE HIGH 160 - 189 mg/dl HIGH >190 mg/dl VERY HIGH Performed By: #### C MP, LIPID #### [facility] [address] [address] [address] Alley Ochoa Triglyceride [Mass/Vol] 245 mg/dL Critically high <=150 [facility] Comment on above: Performed By: #### C MP, LIPID #### [facility] [address] [address] [address] Alley Ochoa VLDL CALC 49.0 mg/dL Normal [facility] Comment on above: Performed By: #### C MP, LIPID #### [facility] [address] [place] [address] Dr. Alley Ochoa PROF 14(COMP METB)on 022 Albumin [Mass/Vol] 3.8 g/dL Normal 3.4-5.0 [facility] Comment on above: Performed By: #### C MP, LIPID #### [facility] [address] [place] [address] Dr. Alley Ochoa Albumin/Globulin [Mass ratio] 0.9 {ratio} Normal [facility] Comment on above: Performed By: #### C MP, LIPID #### [facility] [address] [place] [address] Dr. Alley Ochoa ALP [Catalytic activity/Vol] 92 U/L Normal 46-116 [facility] Comment on above: Performed By: #### C MP, LIPID #### [facility] [address] [place] [address] Dr. Alley Ochoa ALT [Catalytic activity/Vol] 35 U/L Normal 14-59 [facility] Comment on above: Performed By: #### C MP, LIPID #### [facility] [address] [place] [address] Dr. Alley Ochoa Anion gap [Moles/Vol] 13.5 mmol/L Normal [facility] Comment on above: Performed By: #### C MP, LIPID #### [facility] [address] [place] [address] Dr. Alley Ochoa AST [Catalytic activity/Vol] 28 U/L Normal 15-37 [facility] Comment on above: Performed By: #### C MP, LIPID #### [facility] [address] [place] [address] Dr. Alley Ochoa Bilirubin [Mass/Vol] 0.6 mg/dL Normal 0.2-1.0 [facility] Comment on above: Performed By: #### C MP, LIPID #### [facility] [address] [place] [address] Dr. Alley Ochoa Calcium [Mass/Vol] 9.1 mg/dL Normal 8.5-10.1 [facility] Comment on above: Performed By: #### C MP, LIPID #### [facility] [address] [place] [address] Dr. Alley Ochoa Chloride [Moles/Vol] 101 mmol/L Normal 98-107 [facility] Comment on above: Performed By: #### C MP, LIPID #### [facility] [address] [place] [address] Dr. Alley Ochoa CO2 [Moles/Vol] 26.2 mmol/L Normal 21.0-32.0 [facility] Comment on above: Performed By: #### C MP, LIPID #### [facility] [address] [place] [address] Dr. Alley Ochoa Creatinine [Mass/Vol] 0.80 mg/dL Normal 0.55-1.02 [facility] Comment on above: Performed By: #### C MP, LIPID #### [facility] [address] [place] [address] Dr. Alley Ochoa EGFR-AF CITIZEN OF [place] >60 Normal >=60 [facility] Comment on above: Performed By: #### C MP, LIPID #### [facility] [address] [place] [address] Dr. Alley Ochoa EGFR-NON AF CITIZEN OF [place] >60 Normal >=60 [facility] Comment on above: Performed By: #### C MP, LIPID #### [facility] [address] [place] [address] Dr. Alley Ochoa Globulin (S) [Mass/Vol] 4.0 g/dL Normal [facility] Comment on above: Performed By: #### C MP, LIPID #### [facility] [address] [place] [address] Dr. Alley Ochoa Glucose [Mass/Vol] 115 mg/dL Critically high 74-106 [facility] Comment on above: Performed By: #### C MP, LIPID #### [facility] [address] [place] [address] Dr. Alley Ochoa Potassium [Moles/Vol] 4.7 mmol/L Normal 3.5-5.1 [facility] Comment on above: Performed By: #### C MP, LIPID #### [facility] [address] [address] [address] Alley Ochoa Protein [Mass/Vol] 7.8 g/dL Normal 6.4-8.2 [facility] Comment on above: Performed By: #### C MP, LIPID #### [facility] [address] [address] [address] Alley Ochoa Sodium [Moles/Vol] 136 mmol/L Normal 136-145 [facility] Comment on above: Performed By: #### C MP, LIPID #### [facility] [address] [place] [address] Dr. Alley Ochoa Urea nitrogen [Mass/Vol] 12.0 mg/dL Normal 7.0-18.0 [facility] Comment on above: Performed By: #### C MP, LIPID #### [facility] [address] [place] [address] Dr. Alley Ochoa Urea nitrogen/Creatinine [Mass ratio] 15.0 mg/mg Normal [facility] Comment on above: Performed By: #### C MP, LIPID #### [facility] [address] [place] [address] Dr. Alley Ochoa Quick Fluon 08-12-2021 FLUAV Ab CF (S) [Titer] Negative [facility] [employer] Other FLUBV Ab CF (S) [Titer] Negative [facility] [employer] Other Vital Signs Date Time Vital Sign Value Performing Clinician Facility 01-28-2024 10:59-0400 Body height 162.56 cm [facility] 01-28-2024 10:59-0400 Body mass index (BMI) [Ratio] 27.9 kg/m2 [facility] 01-28-2024 10:59-0400 Body weight 73.93 kg [facility] 01-28-2024 10:59-0400 Diastolic blood pressure 78 mm[Hg] [facility] 01-28-2024 10:59-0400 Heart rate 72 /min [facility] 01-28-2024 10:59-0400 SaO2% (BldA) [Mass fraction] 98 % [facility] 01-28-2024 10:59-0400 Systolic blood pressure 120 mm[Hg] [facility] 11-21-2023 14:33-0400 Diastolic blood pressure 82 mm[Hg] [address] 11-21-2023 14:33-0400 Heart rate 66 /min [address] 11-21-2023 14:33-0400 Systolic blood pressure 128 mm[Hg] [address] 01-19-2023 10:00-0400 Body height 162.56 cm Karmen Tovar Other [facility] Other 01-19-2023 10:00-0400 Body mass index (BMI) [Ratio] 29.18 kg/m2 Karmen Tovar Other [facility] Other 01-19-2023 10:00-0400 Body weight 77.11 kg Karmen Tovar Other [facility] Other 01-19-2023 10:00-0400 Diastolic blood pressure 88 mm[Hg] Karmen Tovar Other [facility] Other 01-19-2023 10:00-0400 Systolic blood pressure 118 mm[Hg] Karmen Tovar Other [facility] Other 01-05-2023 15:05-0400 Body height 162.56 cm Mag Perry Other [facility] Other 01-05-2023 15:05-0400 Body mass index (BMI) [Ratio] 28.66 kg/m2 Mag Perry Other [facility] Other 01-05-2023 15:05-0400 Body temperature 98.1 [degF] Mag Vicky Other [facility] Other 01-05-2023 15:05-0400 Body weight 75.75 kg Mag Vicky Other [facility] Other 01-05-2023 15:05-0400 Diastolic blood pressure 81 mm[Hg] Mag Vicky Other [facility] Other 01-05-2023 15:05-0400 Respiratory rate 18 /min Mag Vicky Other [facility] Other 01-05-2023 15:05-0400 SaO2% (BldA) [Mass fraction] 93 % Mag Vicky Other [facility] Other 01-05-2023 15:05-0400 Systolic blood pressure 131 mm[Hg] Mag Perry Other [facility] Other 09-05-2022 11:25-0400 Body height 162.56 cm Kimberley Rodríguez Other [facility] Other 09-05-2022 11:25-0400 Body mass index (BMI) [Ratio] 28.42 kg/m2 Kimberley Rodríguez Other [facility] Other 09-05-2022 11:25-0400 Body temperature 98 [degF] Kimberley Rodríguez Other [employer] Other 09-05-2022 11:25-0400 Body weight 75.12 kg Kimberley Rodríguez Other [facility] Other 09-05-2022 11:25-0400 Diastolic blood pressure 70 mm[Hg] Kimberley Rodríguez Other [employer] Other 09-05-2022 11:25-0400 Respiratory rate 16 /min Kimberley Rodríguez Other [employer] Other 09-05-2022 11:25-0400 SaO2% (BldA) [Mass fraction] 97 % Kimberley Rodríguez Other [employer] Other 09-05-2022 11:25-0400 Systolic blood pressure 125 mm[Hg] Kimberley Rodríguez Other [employer] Other 07-03-2022 15:57-0500 Body height 162.56 cm DO Osiel House Work Phone: [facility] 07-03-2022 12:00-0500 Diastolic blood pressure 78 mm[Hg] DO Osiel House Work Phone: [facility] 07-03-2022 12:00-0500 Heart rate 78 /min DO Osiel House Work Phone: [facility] 07-03-2022 12:00-0500 Respiratory rate 16 /min DO Osiel House Work Phone: [facility] 07-03-2022 12:00-0500 SaO2% (BldA) [Mass fraction] 97 % DO Osiel House Work Phone: [facility] 07-03-2022 12:00-0500 Systolic blood pressure 138 mm[Hg] DO Osiel House Work Phone: [facility] 07-03-2022 08:00-0500 Body temperature 97.8 [degF] DO Osiel House Work Phone: [facility] 07-03-2022 05:40-0500 Body weight 73.1 kg DO Osiel House Work Phone: [facility] 07-02-2022 21:52-0500 Body height 162.56 cm DO Osiel House Work Phone: [facility] 07-02-2022 21:52-0500 Body temperature 97.8 [degF] DO Osiel House Work Phone: [facility] 07-02-2022 21:52-0500 Body weight 73.9 kg DO Osiel House Work Phone: [facility] 07-02-2022 21:52-0500 Diastolic blood pressure 86 mm[Hg] DO Osiel House Work Phone: [facility] 07-02-2022 21:52-0500 Heart rate 65 /min DO Osiel House Work Phone: [facility] 07-02-2022 21:52-0500 Respiratory rate 16 /min DO Osiel House Work Phone: [facility] 07-02-2022 21:52-0500 SaO2% (BldA) [Mass fraction] 96 % DO Osiel House Work Phone: [facility] 07-02-2022 21:52-0500 Systolic blood pressure 144 mm[Hg] DO Osiel House Work Phone: [facility] 07-02-2022 00:00-0500 60 1 Osiel P House Work Phone: [facility] 250 DO Work Phone: Comment on above: [id number] 04-14-2022 15:05-0400 Body height 162.56 cm Kimberley Rodríguez Other [employer] Other 04-14-2022 15:05-0400 Body mass index (BMI) [Ratio] 28.66 kg/m2 Kimberley Rodríguez Other [employer] Other 04-14-2022 15:05-0400 Body temperature 97.9 [degF] Kimberley Rodríguez Other [employer] Other 04-14-2022 15:05-0400 Body weight 75.75 kg Kimberley Rodríguez Other [employer] Other 04-14-2022 15:05-0400 Diastolic blood pressure 74 mm[Hg] Kimberley Rodríguez Other [employer] Other 04-14-2022 15:05-0400 Respiratory rate 18 /min Kimberley Rodríguez Other [employer] Other 04-14-2022 15:05-0400 SaO2% (BldA) [Mass fraction] 96 % Kimberley Rodríguez Other [employer] Other 04-14-2022 15:05-0400 Systolic blood pressure 127 mm[Hg] Kimberley Rodríguez Other [employer] Other 02-01-2022 15:58-0400 Body height 162.56 cm [employer] Work Phone: [facility] [employer] 250 DO Work Phone: 02-01-2022 15:58-0400 Body mass index (BMI) [Ratio] 28.32 kg/m2 [employer] Work Phone: [facility] [employer] 250 DO Work Phone: 02-01-2022 15:58-0400 Body surface area Derived from formula 1.8 m2 Osiel P [employer] Work Phone: [facility] [employer] 250 DO Work Phone: 02-01-2022 15:58-0400 Body weight 74.84 kg Osiel P House Work Phone: [facility] 250 DO Work Phone: 02-01-2022 15:58-0400 Diastolic blood pressure 78 mm[Hg] Osiel P House Work Phone: [facility] 250 DO Work Phone: 02-01-2022 15:58-0400 Heart rate 68 /min Osiel P House Work Phone: [facility] 250 DO Work Phone: 02-01-2022 15:58-0400 Systolic blood pressure 118 mm[Hg] Osiel P House Work Phone: [facility] 250 DO Work Phone: 01-31-2022 14:57-0400 65 1 Osiel P [employer] Work Phone: [facility] Work Phone: Comment on above: [facility]SL 08-12-2021 11:15-0500 Body height 162.56 cm Jael Fournier Other [employer] Other 08-12-2021 11:15-0500 Body mass index (BMI) [Ratio] 28.32 kg/m2 Jael Fournire Other [employer] Other 08-12-2021 11:15-0500 Body temperature 98.1 [degF] Jael Fournier Other [employer] Other 08-12-2021 11:15-0500 Body weight 74.84 kg Jael Fournier Other [employer] Other 08-12-2021 11:15-0500 SaO2% (BldA) [Mass fraction] 97 % Jael Fournier Other [employer] Other Encounters Encounter Date Encounter Type Care Provider Facility Start: 01-28-2024 End: 01-28-2024 ambulatory [facility] Work Phone: Start: 01-28-2024 End: 01-28-2024 Patient encounter procedure [facility] Work Phone: Start: 11-21-2023 End: 11-21-2023 ambulatory [facility] Start: 11-21-2023 End: 11-21-2023 Subsequent hospital visit by physician Nathalie Dupree Stress Room 1 [facility] Comment on above: Atherosclerosis of n ative coronary artery, unspecified whether angina present, unspecified whether [place] or transplanted heart Start: 10-16-2023 End: 10-16-2023 ambulatory IVETTE MYERSArturo Not Available Start: 05-07-2023 End: 05-07-2023 ambulatory Karmen Tovar Other [employer] Other Start: 05-07-2023 Telephone encounter Karmen Wilkinsabdullahironni her [facility] Start: 04-04-2023 End: 04-04-2023 ambulatory Karmen Guy Other [employer] Other Start: 04-04-2023 Telephone encounter Karmen Wilkinsglory her [facility] Start: 03-29-2023 End: 03-29-2023 ambulatory Karmen Guy Other [employer] Other Start: 03-29-2023 Telephone encounter Karmen Wilkinsabdullahironni her [facility] Start: 03-02-2023 Rx Renewal Osiel P Eric ball [facility] DO Work Phone: Start: 02-26-2023 Rx Renewal Osiel P Eric ball Work Phone: [facility] 250 DO Work Phone: Start: 01-26-2023 Telephone encounter Osiel Pettit Work Phone: [facility] 250 DO Work Phone: Start: 01-25-2023 AUDIT Osiel ball Work Phone: [facility] 250 DO Work Phone: Start: 01-24-2023 End: 01-24-2023 ambulatory Karmen Guy Other [employer] Other Start: 01-24-2023 Telephone encounter Karmen Emiliana [facility] [email or web address] Start: 01-19-2023 End: 01-19-2023 ambulatory Karmen Guy Other [employer] Other Start: 01-19-2023 Encounter for genera l adult medical examination without abnormal findings Karmen Tovar [facility] Start: 01-19-2023 Initial preventive medicine new patient 40-64yrs Karmen Tovar [facility] Start: 01-05-2023 End: 01-05-2023 ambulatory Mag Perry Other [employer] Other Start: 01-05-2023 Office outpatient vi sit 15 minutes Mag Perry [facility] [place] Start: 12-26-2022 Rx Renewal Osiel ball Work Phone: [facility] 250 DO Work Phone: Start: 10-11-[address] [facility] Start: 09-07-2022 End: 09-07-2022 ambulatory Kimberley Rodríguez Other [employer] Other Start: 09-07-2022 Telephone encounter Kimberley Rodríguez [facility] Urgent Care [facility] Start: 09-05-2022 Office outpatient vi sit 15 minutes Kimberley Rodríguez [facility] [place] Start: 09-05-2022 End: 09-05-2022 ambulatory Kimberley Rodríguez [facility] Work Phone: Start: 09-05-2022 End: 09-05-2022 Departed Referred DO Osiel Pettit Work Phone: [facility] [place] Work Phone: Start: 08-25-2022 End: 08-25-[address] OSIEL PETTIT Facility:H1 Start: 07-16-2022 Rx Renewal Osiel P Hous e Work Phone: [facility] 250 DO Work Phone: Start: 07-05-2022 ambulatory Eduardo ZHOU Facility: [facility] Start: 07-03-2022 Rx Renewal Osiel P Hous e Work Phone: [facility] 250 DO Work Phone: Start: 07-02-2022 End: 07-03-2022 ambulatory Osiel Pettit Facility:[facility] Start: 07-02-2022 End: 07-03-2022 Evaluation and management of inpatient DO Osiel Joseph Work Phone: [facility] [place] [facility] Work Phone: Start: 07-02-2022 End: 07-03-2022 observation encounter DO Osiel Pettit Work Phone: [facility] Work Phone: Start: 06-08-2022 ambulatory Eduardo ZHOU Facility:[facility] Start: 05-17-2022 End: 08-26-[address] DIANA RAMIREZ Facility:[facility] Start: 04-20-2022 End: 04-20-[address] OSIEL PETTIT Facility:[facility] Start: 04-17-2022 Rx Renewal Osiel P Hous e Work Phone: [facility] 250 DO Work Phone: Start: 04-14-2022 End: 04-14-2022 ambulatory Kimberley Rodríguez Other [facility] [employer] Other Start: 04-14-2022 Office outpatient vi sit 25 minutes Kimberley Rodríguez [facility] Start: 02-28-2022 Rx Renewal Osiel P Hous e Work Phone: [facility] 250 DO Work Phone: Start: 02-27-2022 Telephone encounter Osiel Pettit Work Phone: [facility] 250 DO Work Phone: Start: 02-22-2022 ambulatory Ms. Jerome Pelaez Facilit [id number] Start: 02-14-2022 Rx Renewal Osiel P Hous e Work Phone: [facility] 250 DO Work Phone: Start: 02-02-2022 Encounter for genera l adult medical examination without abnormal findings DR OSIEL PETTIT [facility] Start: 02-01-2022 ambulatory Ms. Jerome Pelaez Facility: Start: 02-01-2022 Office outpatient vi sit 15 minutes Osiel Pettit Work Phone: [facility] 600 DO Work Phone: Start: 02-01-2022 Patient encounter procedure Osiel Pettit Work Phone: [facility] 250 DO Work Phone: Start: 01-31-2022 End: 02-01-[address] OSIEL PETTIT Facility:[facility]1 Start: 01-31-2022 End: 02-01-2022 Encounter for general adult medical examination without abnormal findings DR OSIEL PETTIT Facility:[facility]1 Start: 01-16-2022 Rx Renewal Osiel P Hous e Work Phone: [facility] 250 DO Work Phone: Start: 12-02-2021 Rx Renewal Osiel P Hous e Work Phone: [facility] 250 DO Work Phone: Start: 11-21-2021 Rx Change Osiel P Hous e Work Phone: [facility] 250 DO Work Phone: Start: 11-17-2021 Rx Change Osiel P Hous e Work Phone: [facility] 600 DO Work Phone: Start: 11-10-2021 Telephone encounter Osiel Pettit Work Phone: [facility] 250 DO Work Phone: Start: 10-26-2021 Rx Renewal Osiel P Hous e Work Phone: [facility] 250 DO Work Phone: Start: 10-19-2021 Telephone encounter Osiel Pettit Work Phone: [facility] 250 DO Work Phone: Start: 08-12-2021 End: 08-12-2021 ambulatory Jael Fournier Other [employer] Other Start: 08-12-2021 Office outpatient vi sit 15 minutes Jael Fournier [facility] Start: 07-15-2021 Rx Renewal Osiel P Hous e Work Phone: [facility] 250 DO Work Phone: Start: 06-28-2018 Patient encounter procedure PROVIDER UNKNOWN Facility:[facility] Patient encounter status Osiel Pettit Work Phone: [facility] 250 DO Work Phone: Procedures Date Procedure [...] 04-19-2025 Screening for malignant neoplasm of cervix [facility] Start: 02-02-2025 Screening for malignant neoplasm of colon [facility] Start: 02-10-2024 Influenza vaccination Influenza Vaccine (Season Ended) [facility] Start: 12-05-2023 FUV, Provider: Elfego Marshall, Status: Pen, Time: 9:00 AM FUV, Provider: Elfego Marshall, Status: Pen, Time: 9:00 AM [facility] 250 DO Work Phone: Start: 12-05-2023 End: 12-05-2023 Patient encounter procedure 12/05/2023 9:00 AM EDT Office Visit [place] [id number] [id number] Elfego Marshall DO [address] [place] [address] [facility] Start: 11-06-2023 STRESS MIC, Provider: SHANICE HHVI NUCLEAR 01,[id number], Status: Pen, Time: 11:30 AM STRESS MIC, Provider: SHANICE [facility]VI NUCLEAR 01,[id number], Status: Pen, Time: 11:30 AM [facility] 250 DO Work Phone: Start: 02-09-2023 COVID-19 Vaccine ( season) COVID-19 Vaccine () [facility] Start: 09-05-2022 Bacteria identified in Urine by Culture Urine Culture [facility] Start: 08-02-2022 FUV, Provider: Elfego Marshall, Status: Pen, Time: 9:50 AM FUV, Provider: Elfego Marshall, Status: Pen, Time: 9:50 AM [facility] 250 DO Work Phone: Start: 07-03-2022 Lipid panel [facility] Start: 07-03-2022 End: 07-03-2022 [facility] Start: 07-02-2022 Physical therapy procedure [facility] Start: 07-02-2022 Referral to occupational therapist [facility] Start: 07-02-2022 Referral to speech and language therapy service [facility] Start: 07-02-2022 Hospital admission [facility] Start: 07-02-2022 MRI of head MR head/brain wo [facility] Start: 07-02-2022 Referral to neurologist [facility] Start: 07-02-2022 [facility] Start: 07-02-2022 CT angiography of head [facility] Start: 07-02-2022 CT angiography of neck vessels [facility] Start: 07-02-2022 CT Head WO contrast [facility] Start: 07-02-2022 CT of head without contrast CT head stroke alert wo con [facility] Start: 07-02-2022 Plain chest X-ray XR chest 1V portable [facility] Start: 07-02-2022 XR Chest Single view [facility] Start: 07-02-2022 Bacteria identified in Urine by Culture Urine Culture [facility] Start: 07-02-2022 Urine culture Urine Culture [facility] Start: 02-22-2022 STRESS MIC, Provider: SHANICE [facility]VI NUCLEAR 01,[id number], Status: Pen, Time: 11:00 AM STRESS MIC, Provider: SHANICE HHVI NUCLEAR 01,[id number], Status: Pen, Time: 11:00 AM [facility] 250 DO Work Phone: Start: 02-01-2022 FUV, Provider: Jerome Michel, Status: Pen, Time: 3:30 PM FUV, Provider: Jerome Michel, Status: Pen, Time: 3:30 PM [facility] 250 DO Work Phone: Start: 01-02-2022 FUV, Provider: Jerome Michel, Status: Pen, Time: 3:30 PM FUV, Provider: Jerome Michel, Status: Pen, Time: 3:30 PM [facility] 250 DO Work Phone: Start: 11-30-2021 FUV, Provider: Elfego Marshall, Status: Pen, Time: 10:50 AM FUV, Provider: Elfego Marshall, Status: Pen, Time: 10:50 AM [facility] 250 DO Work Phone: Start: 08-10-2021 FUV, Provider: Elfego Marshall, Status: Pen, Time: 10:10 AM FUV, Provider: Elfego Marshall, Status: Pen, Time: 10:10 AM [facility] 250 DO Work Phone: Start: 01-30-2020 Zoster Vaccines (1 of 2) Zoster Vaccines (1 of 2) [facility] Start: 2010 Screening for malignant neoplasm of breast Mammogram [facility] Start: 01-30-1992 DTaP/Tdap/Td Vaccines (1 - Tdap) DTaP/Tdap/Td Vaccines (1 - Tdap) [facility] Start: 1991 Screening for malignant neoplasm of cervix HPV/Cotest [facility] Start: 1989 Hepatitis B Vaccines (1 of 3 - 19+ 3-dose series) Hepatitis B Vaccines (1 of 3 - 19+ 3-dose series) [facility] Start: 1989 Urine screening for protein Diabetes: Urine Protein Screening [facility] Start: 01-30-1988 Hepatitis C screening Hepatitis C Screening [facility] Start: 01-30-1980 Diabetic foot examination Diabetes: Foot Exam [facility] Start: 01-30-1980 Glaucoma screening Diabetes: Retinopathy Screening [facility] Start: 01-30-1976 Pneumococcal Vaccine: Pediatrics (0 to 5 Years) and At-Risk Patients (6 to 64 Years) (1 of 2 - PCV) Pneumococcal Vaccine: Pediatrics (0 to 5 Years) and At-Risk Patients (6 to 64 Years) (1 of 2 - PCV) [facility] Start: 1971 MMR Vaccines (1 of 1 - Standard series) MMR Vaccines (1 of 1 - Standard series) [facility] Start: 1970 Hemoglobin A1c measurement Diabetes: Hemoglobin A1C [facility] Start: 1970 HIV screening HIV Screening [facility] Start: 1970 Lipid panel Lipid Panel [facility] Start: 1970 Screening for malignant neoplasm of colon [facility] Start: 1970 Yearly Adult Physical Yearly Adult Physical [facility] Comprehensive metabo lic 2000 panel - Serum or Plasma [facility] Patient Education Quitting Smoking [facility] Work Phone: Patient referral [facility] Work Phone: [facility] Immunizations Immunization Date Immunization Notes Care Provider Matilde pimentel 09-09-2021 Moderna COVID-19 Vaccine 100 MCG/0.5ML Intramuscular Suspension Osiel [facility] Work Phone: [facility] 250 DO Work Phone: 11-05-2020 margaret thakur don't use Jael Fournier Other [employer] Other 08-30-2020 margaret thakur don't use Jael Fournier Other [facility] Payers Date Payer Category Payer Unknown 2023 Unknown [id number] 1970 Unknown [id number] 2.16.8 [id number] 1970 Unknown [id number] 2.16.8 [id number] 1970 Unknown [id number] 2.16.8 [id number] 1970 Unknown [id number] 2.16. [id number] 1970 Unknown [id number] 2.16. [id number] 1970 Unknown [id number] 2.16.84 [id number] 1970 Unknown [id number] 2.16.84 [id number] 1970 Unknown [id number] 2.16.84 [id number] 1970 Unknown [id number] 2.16.84 [id number] 1970 Unknown [id number] 2.16.8 [id number] 1959 Self-pay [id number] 1959 Unknown [id number] Unknown [id number] 2.16.8 [id number] Unknown [id number] 2.16.8 [id number] Unknown [id number] 2.16.84 [id number] Social History Date Type Detail Facility Start: 08-20-2023 Social alcohol use Social alcohol us e [facility] 250 DO Work Phone: Comment on above: SMOKES ABOUT 1 PPD; Start: 08-20-2023 Sex Assigned At [facility] [employer] Other Start: 07-02-2022 End: 01-28-2024 Tobacco smoking status [facility] Smoker (finding) [facility] Start: 1970 Sex Assigned At Female F [facility] Start: 07-03-2022 End: 07-03-2022 Tobacco smoking status UTIS Current some day smoker [facility] Start: 08-20-2023 Tobacco smoking stat [facility] Smokes tobacco daily [facility] Work Phone: History of tobacco use Cigarette Smoker U [facility] Work Phone: Start: 08-20-2023 Alcoholic beverage intake Current drinker of alcohol (finding) [facility] Work Phone: Start: 08-20-2023 Alcohol Comment social [facility] Work Phone: Start: 1970 Sex assigned at Not on file [facility] Work Phone: Start: 11-11-2023 End: 11-21-2023 Exposure to SARS-CoV-2 (event) Not sure [facility] Medical Equipment Procedure Code Equipment Code Equipment Origin al Text Equipment Identifier Dates Drug-eluting coronary artery stent, [id number] lymer-coated ()[id number] FDA Start: 07-01-2019 Femoral artery closure plug/patch, synthetic polymer ()[id number] FDA Start: 07-01-2019 Goals Date Patient Goal Desired Activity /State Functional Status Date Assessment Result Facility 07-03-2022 Functional status Patient at Baseline [facility] Work Phone: Mental Status Date Assessment Result Facility 07-03-2022 Cognitive function Cognitive Sta tus Patient at Baseline [facility] Work Phone: Clinical Notes 2019 to 05-07-2023 Note Date & Type Note Facility 05-07-2023 Evaluation note Encounter Date Diagnosis Assessment Notes Apr, Reactive depression (ICD-10 - F32.9) Apr, Gastroesophageal reflux disease without esophagitis (ICD-10 - K21.9) [employer] Other 08-11-2023 Evaluation note* Encounter Date Diagnosis [...] now. 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 [employer] Other 07-28-2023 Evaluation note* Encounter Date Diagnosis [...] given. Patient verbalized understanding of treatment plan. [employer] Other 03-28-2023 Evaluation note* Encounter Date Diagnosis [...] understanding and is agreeable to treatment plan [employer] Other 01-23-2023 Progress note Author Savanna Orellana [facility] July 03, 2022 3:50pm Note Date/Time July 03, 2022 1 1:40am [facility] [address] [place] [address] Hospitalist Progress Note Signed with Addenda Patient: Shefali Riggs MR#: [id number] : 1970 Acct:[id number] Age/Sex: 52 / F Adm Date: 3 Loc: Room: [address] [place] [address] Type: ADM INOo Attending Dr: Savanna Orellana [...] Syringe SUBCUT 07/03/23 09:59 Not Given DAILY@10 [facility] Hydralazine HCl 10 mg 07/02/22 21:52 [...] signed by Savanna Orellana MD> 07/03/22 1142 [facility] Work Phone: 1(204) 926-733401-23-2023 History and physical note Author Shari Kang [facility] July 02, 2022 10:34pm Note Date/Time July 02, 2022 9 :50pm [facility] [address] [place] [address] Hospitalist H&P Signed with Addenda Patient: Shefali Riggs MR#: [id number] : 1970 Acct:[id number] Age/Sex: 52 / F Adm Date: 3 Loc: Room: [address] [place] [address] Type: ADM IN Attending Dr: Shari Kang [...] Case was discussed with telestroke team in [place] by ER and tPA was not recommended [...] negative unless noted below or in HPI [facility] Attestation Statement: The following information was validated [...] % (Auto) 30.5 % (.) 07/02/22 19:14 [place] % (Auto) 14.0 % (.) 07/02/22 19:14 Eos % (Auto) 6.4 % (.) 07/02/22 19:14 Baso % (Auto) 0.8 % (.) 07/02/22 19:14 Nucleat RBC Rel Count 0.2 /100 WBC (0-0.5) 07/02/22 19:14 Neut # (Auto) 5.2 x10E3/uL (1.8-7.7) 07/02/22 19:14 Lymph # (Auto) 3.3 x10E3/uL (1.00-4.8) 07/02/22 19:14 [place] # (Auto) 1.5 x10E3/uL (0.0-0.8) H 07/02/22 [...] pH 5.5 (5.0-9.0) 07/02/22 19:02 Ur Specific [place] 1.003 (1.001-1.030) 07/02/22 19:02 Urine Protein Negative [...] <Electronically signed by DO SHAHBAZ Kendall> 07/02/222149 [facility] Work Phone: 1(741) 454-807111-04-2022 Evaluation note* Encounter Date Diagnosis Assessment Notes [...] condition Apr, Sore throat (ICD-10 - J02.9) [employer] Other 03-04-2022 Evaluation note* Encounter Date Diagnosis [...] Patient care instructions given in writting by [facility] Care At Home document. Due to infection control protocols for COVID-19 virus, direct physical contact with patient was limited to only the absolute essential needed assessments. [employer] Other 08-21-2019 History and physical note Author Shari Kang [facility] July 02, 2022 10:34pm Note Date/Time July 02, 2022 9 :50pm [facility] [address] [place] [address] Hospitalist H&P Signed with Addenda Patient: Shefali Riggs MR#: [id number] : 1970 Acct:[id number] Age/Sex: 52 / F Adm Date: 3 Loc: Room: 6B8329-6 Type: ADM IN Attending Dr: Shari Kang [...] Case was discussed with telestroke team in [place] by ER and tPA was not recommended [...] negative unless noted below or in HPI [facility] Attestation Statement: The following information was validated [...] % (Auto) 30.5 % (.) 07/02/22 19:14 [place] % (Auto) 14.0 % (.) 07/02/22 19:14 Eos % (Auto) 6.4 % (.) 07/02/22 19:14 Baso % (Auto) 0.8 % (.) 07/02/22 19:14 Nucleat RBC Rel Count 0.2 /100 WBC (0-0.5) 07/02/22 19:14 Neut # (Auto) 5.2 x10E3/uL (1.8-7.7) 07/02/22 19:14 Lymph # (Auto) 3.3 x10E3/uL (1.00-4.8) 07/02/22 19:14 [place] # (Auto) 1.5 x10E3/uL (0.0-0.8) H 07/02/22 [...] pH 5.5 (5.0-9.0) 07/02/22 19:02 Ur Specific [place] 1.003 (1.001-1.030) 07/02/22 19:02 Urine Protein Negative [...] <Electronically signed by DO SHAHBAZ Kendall> 07/02/222149 [facility] Work Phone: Consult note Author Rajesh Hurd [facility] July 03, 2022 3:40pm Note Date/Time July 03, 2022 3 :40pm [facility] [address] [place] [address] Neurology Consult Note Signed Patient: Shefali Riggs MR#: [id number] : 1970 Acct:[id number] Age/Sex: 52 / F Adm Date: 3 Loc: Room: [address] [place] [address] Type: ADM INOo Attending Dr: Savanna Orellana MD Copies to: DO Osiel Ellington DO Obaydah M Daromar, MD~ HPI Consult Date: 07/03/22 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 Preliminary findings given 07/02/22 at 1930 hours Impression dictated by: Yohannes Ascencio M.D.07/03/2022 8:02 AM Dictation Location: [place] [address] Head CTA 07/02/22 19:13 IMPRESSION: No occlusion, critical stenosis or dissection of the extracranial orintracranial circulation. No intracranial aneurysm. Impression dictated by: Yohannes Ascencio M.D.07/03/2022 8:06 AM Dictation Location: [place] [address] Assessment/Plan (1) Left sided numbness: Assessment/Problem Details: [...] in her foot. She had similar symptoms [id number] but was not given a clear diagnosis. [...] <Electronically signed by Rajesh Hurd DO> 07/03/22 9333 [facility] Work Phone: Evaluation note* Diagnosis Onset Date Resolution Status Current smoker acute Left sided numbness acute Hypertension chronic [facility] Work Phone: Evaluation note* Diagnosis Onset Date Resolution Status Current smoker acute Left sided numbness acute Hyperlipidemia chronic Hypertension chronic [facility] Work Phone: Evaluation noteNo InformationNort [employer] Other Evaluation note* Diagnosis Atherosclerosis of muscogee coronary artery, unspecified whether angina present, unspecified whether muscogee or transplanted heart documented in this encounter [facility] Work Phone: Evaluation note* Diagnosis Onset Date Resolution Status Fatigue acute Headache acute Neck pain acute Tick bite acute [facility] Work Phone: Hiscbbu general Narrative - Reported* Type Description Date Medical History stroke Medical History 2 heart attackS Medical History hyperlipidemia Surgical History C section 1989 & 2000 Surgical History hysterectomy 2003 Surgical History partial hysterectomy 2002 Surgical History gall bladder 2015 Surgical History Stents 2013 & 2020 Hospitalization History See Above [facility] Other Hisdrkv general Narrative - Reported* Type Description Date Medical History stroke Medical History 2 heart attackS Medical History hyperlipidemia Surgical History C section 1989 & 2000 Surgical History hysterectomy 2003 Surgical History partial hysterectomy 2002 Surgical History gall bladder 2015 Surgical History Stents cardiac 2013 & 2020 Hospitalization History See Above [facility] Other History general Narrative - Reported* Type Description Date Medical History stroke Medical History 2 heart attackS Medical History hyperlipidemia Surgical History C section 1989 & 2000 Surgical History hysterectomy 2002 Surgical History partial hysterectomy 2002 Surgical History gall bladder 2014 Surgical History Stents cardiac 2013 Hospitalization History See Above Hospitalization History TIA 07/02/19 [facility] Other Hiszlfw general Narrative - Reported* Type Description Date Medical History stroke Medical History 2 heart attackS Medical History hyperlipidemia Surgical History C section 1989 & 2000 Surgical History hysterectomy 2002 Surgical History partial hysterectomy 2002 Surgical History gall bladder 2014 Surgical History Stents cardiac 2013 Hospitalization History See Above Hospitalization History TIA 07/02/19 Hospitalization History SVT 12/2021 [employer] Other History of Present illness Narrative* The [...] medication regimen. She denies medication side effects. [facility] [employer] 250 DO Work Phone: History of Present [...] medication regimen. She denies medication side effects. [facility] Work Phone: History of Present [...] medication regimen. She denies medication side effects. [facility] Work Phone: Hospital Discharge instructions Additional Instructions [...] clinic -[facility] Work Phone: Progress note Author Savanna Orellana [facility] July 03, 2022 11:40am Note Date/Time July 03, 2022 1 1:40am [facility] [address] [place] [address] Hospitalist Progress Note Signed Patient: Shefali Riggs MR#: [id number] : 1970 Acct:[id number] Age/Sex: 52 / F Adm Date: 3 Loc: Room: [address] [place] [address] Type: ADM INOo Attending Dr: Savanna Orellana [...] signed by Savanna Orellana MD> 07/03/22 1140 [facility] Work Phone: Summary Purpose Family History [...] t Referred To Contact Diagnoses Atherosclerosis of muscogee coronary artery, unspecified whether angina present, unspecified whether muscogee or transplanted heart Procedures Stress Test Only Elfego Marshall DO [address] [facility] [address] [place] [address] Referral ID Status Reason Start Date Expiration Date Visits Re quested Visits Authorized [id number] Closed 02/26/2023 08/25/2023 1 1 Additional Source Comments INFORMATION SOURCE (unrecogn ized section and content) DATE CREATED AUTHOR 07/05/[address] [facility] DATE CREATED AUTHOR AUTHOR'S ORGANIZ ATION 02/04/2022 [employer] DATE CREATED AUTHOR AUTHOR'S ORGANIZ ATION 03/07/2022 [facility] DATE CREATED AUTHOR AUTHOR'S ORGANIZ ATION 07/04/2022 [facility] DATE CREATED AUTHOR AUTHOR'S ORGANIZ ATION 09/09/2022 [facility] DATE CREATED AUTHOR AUTHOR'S ORGANIZ ATION 10/13/2022 [facility] DATE CREATED AUTHOR AUTHOR'S ORGANIZ ATION 11/17/2022 [facility] DATE CREATED AUTHOR AUTHOR'S ORGANIZ ATION 10/17/2023 [facility] EPIC DATE CREATED AUTHOR AUTHOR'S ORGANIZ ATION 12/29/2023 [facility] REASON FOR VISIT (unrecogniz ed section and content) Specialty Diagnoses / Procedures Referred By Contac t Referred To Contact Diagnoses Atherosclerosis of [place] coronary artery, unspecified whether angina present, unspecified whether [place] or transplanted heart Procedures Stress Test Only Elfego Marshall DO [address] [facility] [address] [place] [address] Referral ID Status Reason Start Date Expiration Date Visits Re quested Visits Authorized [id number] Closed 02/26/2023 08/25/2023 1 1 Care Teams [...] Active Kimberley Rodríguez APRN Attending Provider Active Work Distributor Relationship Specialty Start Date End Date Osiel Pettit DO PCP - General 07/08/19 Team Status: Active Member Role Status Dates Karmen Tovar APRN [employer]LECT[employer] RECORDER-Marcela Primary Care Provider Active Team Status: Inactive Member Role Status Dates Karmen Tovar APRN ELECTRON[address] RECORDERShayla Primary Care Provider, Attending Provider Active Start: [...] BE BASED ON THE PRIMARY CLINICAL RECORDS. [facility] [employer] [facility] provides no warranty or guarantee of the accuracy or completeness of information in this document."
[2024-01-30 16:10] LABS: Albumin 3.9 g/dL (2.9-4.4); Alpha-1-Globulin 0.3 g/dL (0.0-0.4); Gamma Globulin 1.1 g/dL (0.4-1.8); Protein, Total 7.4 g/dL (6.0-8.5)
== END 2024-01-29 06:53 | disposition home or self-care (01) ==
LOC: LAB 06:53
PROVIDERS: PCP Nurse Practitioner Family; Visit Provider Nurse Practitioner Family
DX: R20.2 Paresthesia of skin (principal)
CPT/HCPCS: 36415; 82607; 82746; 84155; 84165

== ENCOUNTER 2024-01-29 06:54 | Outpatient (OUT) | payer BC, SELFPAY ==
--- OUTSIDE RECORDS SUMMARY | 2024-01-29 06:58 | XMS_ITS | CCD ---
Author Organization [facility] CliniSyok Care Team Providers Care Mechanical Designer Name Role Phone UNKNOWN, PROVIDER Attending Unavailable [...] Provider MD Shari Kang Admit Provider MD Shari Kang Attending Provider MD Savanna Orellana Attending Provider DO [...] Hurd Other Provider SHERMAN Rodríguez Attending Provider [phone] Dr. Osiel Pettit Primary Care Elfego Bacon [...] Unavailable ABELARDO ., DR MACHUCA Attending Unavailable GAYS MILLS, DR DIANA Gonzalez Attending Unavailable HOUSE, DR ROAHC Primary Care Unavailable GAYS MILLS, DR DIANA Gonzalez Admitting Unavailable GAYS MILLS, DR DIANA Gonzalez Consulting Unavailable Mag Perry Unavailable Karmen Tovar Unavailable IVETTE SHIELDS Unavailable [facility] Osiel EATON Primary Care Provider ELFEGO MARSHALL Referring Unavailable OSIEL PETTIT Primary Care Unavailable Allergies Allergy Classification Reported Allergen(s) Allergy Type Date of Onset Reaction(s) Facility (20 sources) Hmg-Coa Reductase Inhibitors (Statins); Translations: [Statins] Allergy to drug (finding) [facility] 250 DO Work Phone: (20 sources) Penicillins; Translations: [Penicillins] Allergy to drug (finding) 11-11-2013 [facility] Repository (12 sources) Penicillin V Drug Allergy [facility] [employer] Other (1 source) Penicillin; Translations: [penicillin] Drug Allergy [facility] Repository (1 source) Penicillins Drug allergy (disorder) 07-02-2022 [facility] Repository (1 source) Penicillins Drug allergy (disorder) 08-06-2013 [facility] Repository (2 sources) HMG-CoA reductase inhibitor; Translations: [PFTDNUV-LYO-BEF REDUCTASE INHIBITORS] Drug Allergy 08-20-2023 [facility] Work Phone: (1 source) Penicillins Drug Allergy 11-11-2013 [facility] Medications Current Medications Medication Drug Class(es) Dates Sig (Normalized) Sig (Original) aspirin 81 mg delayed release oral tablet (20 sources) Platelet Aggregation Inhibitor, Nonsteroidal Anti-inflammatory Drug Start: 05-15-2023 take 2 tablets by mouth once daily aspirin 81 mg EC tablet Indications: Atherosclerosis of [place] coronary artery of [place] heart without angina pectoris TAKE 2 TABLETS [...] Start: 12-02-2021 take 2 tablets by mo [facility] once daily Aspirin Low Dose 81 MG Oral Tablet Delayed Release TAKE 2 TABLETS DAILY DIRECTED Quantity: 180 Refills: 3 Ordered: 04-Jul-2022 Elfego Marshall DO Start : 02-Dec-2021 Active Start: 07-01-2019 End: 07-03-2022 take 162 mg by mouth once daily Aspirin Discontinued 1 62 MG PO Daily July 01, 2019 1:00am July 03, 2022 4:45pm take 1 tablet by [facility] every twenty-four hours Aspirin 81 MG 1 tablet Orally Once a day Active brompheniramine maleate 0.4 mg/ml / dextromethorphan hydrobromide 2 mg/ml / pseudoephedrine hydrochloride 6 mg/ml oral solution (1 source) alpha-Adrenergic Agonist, Uncompetitive Y-fvnplh-E-aspartate Receptor Antagonist, Sigma-1 Agonist Start: 04-14-2022 take 10 mL by mouth every six hours Cupkcfrpw-Orkxeint-PO 30-2-10 MG/5ML 10 mL Orally every 6 hours for 5 days Apr, Active cholecalciferol 0.05 mg oral capsule (11 sources) Vitamin D Start: 08-31-2020 take 1 capsule by mouth once daily Cholecalciferol (Vitamin D3) (Vitamin D3) 50 mcg (2,000 unit) Capsule Active 50 MCG PO Daily August 31, 2020 12:00am take 1 capsule by mo [facility] every twenty-four hours Vitamin D3 50 [...] SureClick) 140 mg/mL injection Indications: Atherosclerosis of [place] coronary artery of [place] heart without angina pectoris , Hyperlipidemia, unspecified [...] (Lopressor) 25 mg tablet Indications: Atherosclerosis of [place] coronary artery of [place] heart without angina pectoris Take 1 tablet [...] (Aldactone) 100 mg tablet Indications: Atherosclerosis of [place] coronary artery of [place] heart without angina pectoris Take 1 tablet [...] myocardial infarction; Translations: [Atherosclerotic heart disease of [place] coronary artery without angina pectoris] Onset: 06-28-2018 [...] Interpretation Reference Range Facility Cardiac stress study [facility] 11-21-[address], [address] [place] [address] Exercise Stress Test Patient Name: SHEFALI RIGGS Ordering Provider: [id number] ELFEGO MARSHALL Study Date: 11/21/2023 Reading Physician: [id number] Deuce Roberto MD, [facility] MRN/PID: [id number] Supervising Physician: [id number] Elfego Hernandez MD Fellow: Date of /Age: 8 1970 / 53 years Fellow: Gender: F Nurse: Zuleyma Bell RN 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 2. Adequate level of stress achieved. 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 2. Adequate level of stress achieved. [id number] Deuce Roberto MD, [facility] Electronically signed on 11/21/2023 at 4:57:24 PM Final [facility] Work Phone: Cardiac stress study Procedu reOrdered By: Deuce Roberto on 11-21-2023 [facility] Work Phone: STRESS TEST ONLYon 4 STRESS TEST ONLY [address], [place] [address] Exercise Stress Test Patient Name: SHEFALI RIGGS Ordering Provider: [id number] ELFEGO MARSHALL Study Date: 11/21/2023 Reading Physician: [id number] Deuce Roberto MD, [facility] MRN/PID: [id number] Supervising Physician: [id number] Elfego Hernandez MD Fellow: Date of /Age: 8 1970 / 53 years Fellow: Gender: F Nurse: Zuleyma Bell RN 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 2. Adequate level of stress achieved. [id number] Deuec Roberto MD, FACC Electronically signed on 11/21/2023 at 4:57:24 PM Final [facility] COVID Quick Testingon 2022 Result Positive [employer] Other Urinalysis - AUTOMATEDon Appearance (U) clear [employer] Other Bilirubin Ql (U) Negative [facility] Other Color (U) light yellow [employer] Other Glucose Ql (U) Negative [employer] Other Hemoglobin Ql (U) TRACE-INTACT [employer] Other Ketones Ql (U) Negative [employer] Other Leukocyte esterase Test strip Ql (U) Negative [employer] Other Nitrite Ql (U) Negative [employer] Other pH (U) 7.0 [pH] [employer] Other Protein Ql (U) Negative [employer] Other Specific gravity (U) [Rel density] 1.010 [employer] Other Urobilinogen (U) [Mass/Vol] 0.2 mg/dL [employer] Other Urinalysis - AUTOMATED No rt [employer] Other Urine Cultureon 09-05-2022 Bacteria identified Cx Nom (U) Reason for Exam Dysuria Urine 40,000 colonies/ml mixed bacterial skin contaminants 2 Days PERFORMED BY: [place] [id number] PATHOLOGIST SHOE TRIMMER KIRSTIN ALFORD M.D. Normal [facility] Comment on above: Performed By: #### C UU #### [facility] [address] [place] [address] ANNMARIE COVID-19 ANTIGENon 08-25 EUA Statement SEE BELOW Normal [facility] Comment on above: Result Comment: This test [...] sooner. Performed By: #### D ATCVAG #### [facility] [address] [place] [address] Dr. Alley Ochoa SARS-CoV-2 (COVID-19) RNA SCOTTY+probe Ql (Unsp spec) Negative Normal NEGATIVE [facility] Comment on above: Performed By: #### D ATCVAG #### [facility] [address] [place] [address] Dr. Alley Ochoa A1C with Estimated Average G luon 07-03-2022 Glucose [Mass/Vol] 120 mg/dL Normal [facility] Comment on above: Result Comment: PERF ORMED BY: [place] [address] PATHOLOGIST SHOE TRIMMER KIRSTIN ALFORD M.D. Performed By: #### L IPID, A1C [facility] ####[facility] [id number] [place] [id number] [facility] CT angio neckon 07-03-2022 CT angio neck [facility] Main [place] [address] [place] [address] CT Scan Report Signed Patient: Shefali Riggs MR#: [id number] 187 : 1970 Acct:[id number] Age/Sex: 52 / F ADM Date: 07/02/22 Loc: Room: [address] [place] [address] Type: ADM IN Attending Dr: Savanna Orellana MD Copies to: MANAV Livingston MD Ordering Provider: Edward Christian PA-C Date of Service: 07/02/22 CT/CT angio head: acute stroke/neuro deficits ([id number]) CT/CT angio neck: acute stroke/neuro deficits CTA [...] Yohannes Ascencio M.D.07/03/2022 8:06 AM Dictation Location: [place] [address] Transcribed By: [facility] 07/03/22 0806 Dictated By: Yohannes Ascencio DO 07/03/22 0803 Signed By: 07/03/22 [address] [facility] [address] head stroke alert wo nelsy n 07-03-2022 CT head stroke alert wo [facility] [place] [address] CT Scan Report Signed Patient: Shefali Riggs MR#: [id number] 187 : 1970 Acct:[id number] Age/Sex: 52 / F ADM Date: 07/02/22 Loc: Room: [address] [place] [address] Type: ADM IN Attending Dr: Savanna Orellana [...] Yohannes Ascencio M.D.07/03/2022 8:02 AM Dictation Location: [place] [address] Transcribed By: [facility] 07/03/22801 Dictated By: Yohannes Ascencio DO 07/03/22800 Signed By: 07/03/22 08 Normal [facility] Cholesterol [Mass/volume] in Serum or PlasmaOrdered By: Shari Kang on 07-03-2022 Cholesterol [Mass/Vol] 151 mg/dL 140-200 [facility] Comment on above: Chol less than 200 m g/dl low riskChol 201-239 mg/dl borderline riskChol 240 mg/dl and greater high risk Cholesterol in LDL Calc [Mas s/Vol]Ordered By: Shari Kang on 07-03-2022 Cholesterol in LDL [Mass/Vol] 77 mg/dL 0-100 [facility] Comment on above: LDL ATP III CLASSIFI CATIONLDL less than 100 mg/dL OptimalLDL 100-129 mg/dL Near or above optimalLDL 130-159 mg/dL Borderline highLDL 160-189 mg/dL HighLDL greater than 189 mg/dL Very high Cholesterol in VLDL Calc [Ma ss/Vol]Ordered By: Shari Kang on 07-03-2022 Cholesterol in VLDL [Mass/Vol] 34 mg/dL [facility] ECH echo transthoracicon ECH echo transthoracic [facility] Main [place] [address] [place], [place] [id number] Echocardiogram Signed Patient: Shefali Riggs MR#: [id number] 187 : 1970 Acct:[id number] Age/Sex: 52 / F ADM Date: 07/02/22 Loc: Room: [address] [place] [address] Type: DIS INOo Attending Dr: Savanna Orellana [...] By: Rosio Riojas MD 07/03/22 1235 Normal [facility] Folate [Mass/volume] in Seru m or PlasmaOrdered By: Patricia Ch on 07-03-2022 Folate [Mass/Vol] 21.0 ng/mL >5.9 [facility] Comment on above: Folate reference ran ge: >5.9 ng/mlThe WHO technical consultation on folate and vitamin [id number] has determined that folate concentrations lessthan 4 ng/ml are considered deficient. Glucose mean value [Mass/vol ume] in Blood Estimated from glycated hemoglobinOrdered By: Shari Kang on 07-03-2022 Average glucose Estimated from glycated hemoglobin (Bld) [Mass/Vol] 120 mg/dL [facility] Hemoglobin A1c percentageOrd ered By: Shari Kang on 07-03-2022 HbA1c (Bld) [Mass fraction] 5.8 % High 4.3-5.6 [facility] Comment on above: Increased risk for d iabetes: 5.7 - 6.4diabetes: >6.4glycemic control for adults with diabetes: <7.0 Result Comment: Incr eased risk for diabetes: 5.7 - 6.4 diabetes: >6.4 glycemic control for adults with diabetes: <7.0 Performed By: #### L IPID, A1C [facility] ####[facility] [id number] Laboratory - Chemistry and C hemistry - challengeOrdered By: Patricia Ch on 07-03-2022 Cobalamin (Vitamin B12) [Mass/Vol] 195 pg/mL 180-914 [facility] Lipid Panelon 07-03-2022 Cholesterol [Mass/Vol] 151 mg/dL Normal 140-200 [facility] Comment on above: Result Comment: Chol less than 200 mg/dl low risk Chol 201-239 mg/dl borderline risk Chol 240 mg/dl and greater high risk Performed By: #### L IPID, [address] eA ####[place] [address] [place] [address] [facility] Cholesterol in HDL [Mass/Vol] 40 mg/dL Normal 35-85 [facility] Comment on above: Result Comment: HDL CHOL ATP-III CLASSIFICATION Cardiovascular Risk HDL > or equal to 60 mg/dL LOW HDL < 40 mg/dL HIGH Performed By: #### L IPID, [address] eA ####[place] [address] [place] [id number] [facility] Cholesterol.total/Chol esterol in HDL [Mass ratio] 3.8 {ratio} Normal <5.0 [facility] Comment on above: Result Comment: PERF ORMED BY: [facility] [address] [place] [address] PATHOLOGIST SHOE TRIMMER KIRSTIN ALFORD M.D. Performed By: #### L IPID, [address] eA ####[place] [id number] [facility] LDL Cholesterol,Calculated 77 mg/dL Normal 0-100 [facility] Comment on above: Result Comment: LDL ATP III CLASSIFICATION LDL less than 100 mg/dL Optimal LDL 100-129 mg/dL Near or above optimal LDL 130-159 mg/dL Borderline high LDL 160-189 mg/dL High LDL greater than 189 mg/dL Very high Performed By: #### L IPID, [address] eA ####[place] [address] [place] [id number] [facility] Triglyceride w/Reflex 170 mg/dL High 35-149 [facility] Comment on above: Result Comment: TRIG ATP III CLASSIFICATION TRIG less than 150 mg/dL Normal TRIG 150-199 mg/dL Borderline high TRIG 200-500 mg/dL High TRIG greater than 500 mg/dL Very high Standard traceable to the Center for Disease Conrtrol and Prevention (CDC) test method. Performed By: #### L IPID, [address] eA ####[facility] [id number] VLDL CHOLESTEROL 34 mg/dL Normal [facility] Comment on above: Performed By: #### L IPID, A1C [facility] eA ####[facility] [id number] [place] [id number] [facility] MR head/brain wo conon 07-03 MR head/brain wo con [facility] Main [place] [address] [place] [address] MRI Report Signed Patient: Shefali Riggs MR#: [id number] 187 : 1970 Acct:[id number] Age/Sex: 52 / F ADM Date: 07/02/22 Loc: Room: [address] [place] [address] Type: ADM INOo Attending Dr: Savanna Orellana [...] Sami Leung M.D.07/03/2022 2:29 PM Dictation Location: [place] [address] Transcribed By: [facility] 07/03/221428 Dictated By: Sami Leung II, MD 07/03/221421 Signed By: 07/03/221428 Normal [facility] Serum or plasma high density lipoprotein (HDL) cholesterol measurementOrdered By: Shari Kang on 07-03-2022 Cholesterol in HDL [Mass/Vol] 40 mg/dL 35-85 [facility] Comment on above: HDL CHOL ATP-III CLA SSIFICATION Cardiovascular RiskHDL > or equal to 60 mg/dL LOWHDL < 40 mg/dL HIGH Serum or plasma total choles terol/high density lipoprotein (HDL) cholesterol mass ratOrdered By: Shari Kang on 07-03-2022 Cholesterol.total/Chol esterol in HDL [Mass ratio] 3.8 {ratio} <5.0 [facility] TSH DL <= 0.005 mIU/L QnOrde red By: Patricia Ch on 07-03-2022 TSH Qn 1.84 m[IU]/L 0.45-5.33 [facility] Thyroid Stimulating Hormoneo n 07-03-2022 TSH Qn 1.84 m[IU]/L Normal 0.45-5.33 [facility] Comment on above: Order Comment: Shefali Pizano labs to prev drawn labs per ALONZO Vela please Ty PER HARIS Result Comment: PERF ORMED BY: [facility] [address] [place] [address] PATHOLOGIST SHOE TRIMMER KIRSTIN ALFORD M.D. Performed By: #### V [id number], TSH3 ####[facility] [id number] [place] [address] [facility] Triglyceride [Mass/volume] i n Serum or PlasmaOrdered By: Shari Kang on 07-03-2022 Triglyceride [Mass/Vol] 170 mg/dL 35-149 [facility] Comment on above: TRIG ATP III CLASSIF ICATIONTRIG less than 150 mg/dL NormalTRIG 150-199 mg/dL Borderline highTRIG 200-500 mg/dL High TRIG greater than 500 mg/dL Very highStandard traceable to the Center for Disease Conrtrol and Prevention (CDC) test method. Vit. B12/Folate Profileon Cobalamin (Vitamin B12) [Mass/Vol] 195 pg/mL Normal 180-914 [facility] Comment on above: Order Comment: jaycob gomes on Shefali Riggs labs to prev drawn labs per RN Dane please Ty PER HARIS Performed By: #### V [id number], TSH3 #### [address] Folate 21.0 ng/mL Normal >5.9 [facility] Comment on above: Order Comment: jaycob gomes on Shefali Riggs labs to prev drawn labs per ALONZO Vela please Ty PER HARIS Result Comment: Nissa te reference range: >5.9 ng/ml The WHO technical consultation on folate and vitamin b12 deficiencies has determined that folate concentrations less than 4 ng/ml are considered deficient. Performed By: #### V [id number], TSH3 #### [address] XR chest 1V portableon 07-03 XR chest 1V portable [facility] Main [place] [address] [place] [address] XRay Report Signed Patient: Shefali Riggs MR#: [id number] 187 : 1970 Acct:[id number] Age/Sex: 52 / F ADM Date: 07/02/22 Loc: Room: [address] [place] [address] Type: ADM IN Attending Dr: Savanna Orellana [...] Yohannes Ascencio M.D.07/03/2022 8:02 AM Dictation Location: [place] [address] Transcribed By: CONNIE 07/03/22801 Dictated By: Yohannes Ascencio DO 07/03/22801 Signed By: 07/03/22801 Normal [facility] Activated partial thrombopla stin time (aPTT) in platelet poor plasma by coagulation aOrdered By: Edward Christian on 07-02-2022 aPTT Coag (PPP) [Time] 29.4 s 25.1-36.5 [facility] Automated erythrocytes count in urine sediment (number/area)Ordered By: Edward Christian on 07-02-2022 RBC Auto (Urine sed) [#/Area] 3-4 [HPF] 0-4 [facility] Automated leukocytes count i n urine sediment (number/area)Ordered By: Edward Christian on 07-02-2022 WBC Auto (Urine sed) [#/Area] 5-9 [HPF] 0-4 [facility] Basic Metabolic Panelon 06-12 Anion gap [Moles/Vol] 17.0 mmol/L High 6.0-15.0 [facility] Comment on above: Performed By: #### C BC, PT, HS TROP, CK, CKMB, BMP, PTT ####[facility] [id number] [place] [address] [facility] Calcium [Mass/Vol] 9.3 mg/dL Normal 8.2-10.2 [facility] Comment on above: Performed By: #### C BC, PT, HS TROP, CK, CKMB, BMP, PTT ####[facility] [id number] [place] [address] [facility] Chloride [Moles/Vol] 98 mmol/L Normal 95-114 [facility] Comment on above: Performed By: #### C BC, PT, HS TROP, CK, CKMB, BMP, PTT ####[facility] [place] [address] [place] CO2 [Moles/Vol] 23.7 mmol/L Normal 22.0-30.0 [facility] Comment on above: Performed By: #### C BC, PT, HS TROP, CK, CKMB, BMP, PTT ####[place] [address] [place] [id number] [facility] Creatinine [Mass/Vol] 0.87 mg/dL Normal 0.44-1.03 [facility] Comment on above: Performed By: #### C BC, PT, HS TROP, CK, CKMB, BMP, PTT ####[place] [address] [address] Creatinine Clr Calc Pharmacy 83.99 [facility] Comment on above: Result Comment: PERF ORMED BY: [facility] [address] [place] [address] PATHOLOGIST SHOE TRIMMER KIRSTIN ALFORD M.D. Performed By: #### C BC, PT, HS TROP, CK, CKMB, BMP, PTT ####[address] Estimated GFR ( Denise > 60 [facility] Comment on above: Result Comment: GFR estimated reference range: According to KDOQI guidelines, <60 ml/min/1.73m2 is sufficient to diagnose a patient with chronic kidney disease. Performed By: #### C BC, PT, HS TROP, CK, CKMB, BMP, PTT ####[address] Estimated GFR (Non- Am > 60 [facility] Comment on above: Performed By: #### C BC, PT, HS TROP, CK, CKMB, BMP, PTT ####[place] [address] [place] [id number] [facility] Glucose [Mass/Vol] 111 mg/dL High 70-100 [facility] Comment on above: Result Comment: [place] Glucose Reference Range is dependent on time and content of last meal. Glucose of more than 200 mg/dL in a nonstressed, ambulatory subject supports the diagnosis of Diabetes Mellitus. ADA recommended reference range Performed By: #### C BC, PT, HS TROP, CK, CKMB, BMP, PTT ####[facility] [place] [id number] [facility] Potassium [Moles/Vol] 3.7 mmol/L Normal 3.5-5.1 [facility] Comment on above: Performed By: #### C BC, PT, HS TROP, CK, CKMB, BMP, PTT ####[place] [address] [place] [id number] [facility] Sodium [Moles/Vol] 135 mmol/L Low 136-146 [facility] Comment on above: Performed By: #### C BC, PT, HS TROP, CK, CKMB, BMP, PTT ####[place] [address] Urea nitrogen [Mass/Vol] 10 mg/dL Normal 9-23 [facility] Comment on above: Performed By: #### C BC, PT, HS TROP, CK, CKMB, BMP, PTT ####[place] [address] Basophils Auto (Bld) [#/Vol] Ordered By: Edward Christian on 07-02-2022 Basophils (Bld) [#/Vol] 0.1 10*3/uL 0.0-0.2 [facility] Basophils/100 WBC Auto (Bld) Ordered By: Edward Christian on 07-02-2022 Basophils/100 WBC (Bld) 0.8 % . [facility] Bilirubin Test strip Ql (U)O rdered By: Edward Christian on 07-02-2022 Bilirubin Ql (U) Negative Negative [facility] Color Auto (U)Ordered By: Malachi Christian on 07-02-2022 Color (U) Yellow Yellow [facility] Complete Blood Count Auto Di ffon 07-02-2022 Basophils (Bld) [#/Vol] 0.1 10*3/uL Normal 0.0-0.2 [facility] Comment on above: Result Comment: PERF ORMED BY: [facility] [address] [place] [id number] PATHOLOGIST SHOE TRIMMER JIANLAN SUN M.D. Performed By: #### C BC, PT, HS TROP, CK, CKMB, BMP, PTT ####[address] Basophils/100 WBC (Bld) 0.8 % Normal . [facility] Comment on above: Performed By: #### C BC, PT, HS TROP, CK, CKMB, BMP, PTT ####[address] Eosinophils (Bld) [#/Vol] 0.7 10*3/uL High 0.0-0.45 [facility] Comment on above: Performed By: #### C BC, PT, HS TROP, CK, CKMB, BMP, PTT ####[address] Eosinophils/100 WBC (Bld) 6.4 % Normal . [facility] Comment on above: Performed By: #### C BC, PT, HS TROP, CK, CKMB, BMP, PTT ####[address] Erythrocyte distribution width (RBC) [Ratio] 13.6 % Normal 11.9-15.3 [facility] Comment on above: Performed By: #### C BC, PT, HS TROP, CK, CKMB, BMP, PTT ####[address] Hematocrit (Bld) [Volume fraction] 46.6 % High 34.0-46.4 [facility] Comment on above: Performed By: #### C BC, PT, HS TROP, CK, CKMB, BMP, PTT ####[address] Hemoglobin (Bld) [Mass/Vol] 15.9 g/dL High 11.8-15.4 [facility] Comment on above: Performed By: #### C BC, PT, HS TROP, CK, CKMB, BMP, PTT ####[address] Lymphocytes (Bld) [#/Vol] 3.3 10*3/uL Normal 1.00-4.8 [facility] Comment on above: Performed By: #### C BC, PT, HS TROP, CK, CKMB, BMP, PTT ####[address] Lymphocytes/100 WBC (Bld) 30.5 % Normal . [facility] Comment on above: Performed By: #### C BC, PT, HS TROP, CK, CKMB, BMP, PTT ####[address] MCH (RBC) [Entitic mass] 31.6 pg Normal 24.7-34.3 [facility] Comment on above: Performed By: #### C BC, PT, HS TROP, CK, CKMB, BMP, PTT ####[address] MCV (RBC) [Entitic vol] 92.3 fL Normal 80-100 [facility] Comment on above: Performed By: #### C BC, PT, HS TROP, CK, CKMB, BMP, PTT ####[address] Mean Corpuscular HGB Conc 34.2 g/dL Normal 32.0-35.0 [facility] Comment on above: Performed By: #### C BC, PT, HS TROP, CK, CKMB, BMP, PTT ####[address] Monocytes (Bld) [#/Vol] 1.5 10*3/uL High 0.0-0.8 [facility] Comment on above: Performed By: #### C BC, PT, HS TROP, CK, CKMB, BMP, PTT ####[address] Monocytes/100 WBC (Bld) 18.05 % Normal 0.00-20.00 [facility] Comment on above: Performed By: #### C BC, PT, HS TROP, CK, CKMB, BMP, PTT ####[facility] [address] Monocytes/100 WBC (Bld) 14.0 % Normal . [facility] Comment on above: Performed By: #### C BC, PT, HS TROP, CK, CKMB, BMP, PTT ####[address] Neutrophils (Bld) [#/Vol] 5.2 10*3/uL Normal 1.8-7.7 [facility] Comment on above: Performed By: #### C BC, PT, HS TROP, CK, CKMB, BMP, PTT ####[address] Neutrophils/100 WBC (Bld) 48.3 % Normal . [facility] Comment on above: Performed By: #### C BC, PT, HS TROP, CK, CKMB, BMP, PTT ####[address] NRBC% 0.2 /100{WBC} Normal 0-0.5 [facility] Comment on above: Performed By: #### C BC, PT, HS TROP, CK, CKMB, BMP, PTT ####[address] Platelet mean volume (Bld) [Entitic vol] 8.4 fL Normal 6.3-10.7 [facility] Comment on above: Performed By: #### C BC, PT, HS TROP, CK, CKMB, BMP, PTT ####[address] Platelets (Bld) [#/Vol] 302 10*3/uL Normal 150-450 [facility] Comment on above: Performed By: #### C BC, PT, HS TROP, CK, CKMB, BMP, PTT ####[address] RBC (Bld) [#/Vol] 5.04 10*6/uL High 3.60-5.00 [facility] Comment on above: Performed By: #### C BC, PT, HS TROP, CK, CKMB, BMP, PTT ####[facility] [place], [place] [address] WBC (Bld) [#/Vol] 10.8 10*3/uL Normal 3.8-11.6 [facility] Comment on above: Performed By: #### C BC, PT, HS TROP, CK, CKMB, BMP, PTT ####[address] Creatine Kinaseon 07-02-2022 CK [Catalytic activity/Vol] 140 U/L Normal [facility] Comment on above: Performed By: #### C BC, PT, HS TROP, CK, CKMB, BMP, PTT ####[address] Creatine kinase [Enzymatic a ctivity/volume] in Serum or PlasmaOrdered By: Edward Christian on 07-02-2022 CK [Catalytic activity/Vol] 140 U/L [facility] Creatinine (Bld) [Mass/Vol]O rdered By: Shari Kang on 07-02-2022 Creatinine [Mass/Vol] 0.9 mg/dL 0.6-1.3 [facility] Comment on above: ER/ESD physician is notified/shown all ISTAT results.Critical values may be confirmed by laboratory testing ifdeemed necessary by ER attending doctor. Creatinine Kinase MBon 07-02 CK.MB [Mass/Vol] 1.9 ng/mL Normal 0.6-6.3 [facility] Comment on above: Performed By: #### C BC, PT, HS TROP, CK, CKMB, BMP, PTT ####[place] [id number] [facility] CKMB Relative Index 1.3 % Normal 0.00-2.50 [facility] Comment on above: Performed By: #### C BC, PT, HS TROP, CK, CKMB, BMP, PTT ####[address] Creatinine and Glomerular fi ltration rate.predicted panel (S/P/Bld)Ordered By: Edward Christian on 07-02-2022 Creatinine [Mass/Vol] 0.87 mg/dL 0.44-1.03 [facility] Dipstick and Microscopicon 0 07-02-2022 Appearance (U) Clear Normal Clear [facility] Comment on above: Order Comment: Name Collection Type:: Clean-Voided Midstream Performed By: #### C UU, ADDONUAPLUS #### [facility] [address] [place] [address] Bacteria,Urine None Seen Normal None Seen [facility] Comment on above: Order Comment: Name Collection Type:: Clean-Voided Midstream Performed By: #### C UU, ADDONUAPLUS #### [place] [address] [place] Bilirubin,Urine Negative Normal Negative [facility] Comment on above: Order Comment: Name Collection Type:: Clean-Voided Midstream Performed By: #### C UU, ADDONUAPLUS #### [address] Color (U) Yellow Normal Yellow [facility] Comment on above: Order Comment: Name Collection Type:: Clean-Voided Midstream Performed By: #### C UU, ADDONUAPLUS #### [address] Glucose Ql (U) Normal Normal Normal [facility] Comment on above: Order Comment: Name Collection Type:: Clean-Voided Midstream Performed By: #### C UU, ADDONUAPLUS #### [place] [address] [place] Hyaline Casts,Urine 0-8 Normal 0-8 [facility] Comment on above: Order Comment: Name Collection Type:: Clean-Voided Midstream Result Comment: PERF ORMED BY: [place] [address] PATHOLOGIST SHOE TRIMMER KIRSTIN ALFORD M.D. Performed By: #### C UU, ADDONUAPLUS #### [address] Ketones Ql (U) Negative Normal Negative [facility] Comment on above: Order Comment: Name Collection Type:: Clean-Voided Midstream Performed By: #### C UU, ADDONUAPLUS #### [facility] [address] [place] [address] Leukocyte esterase Test strip Ql (U) 1+ High Negative [facility] Comment on above: Order Comment: Name Collection Type:: Clean-Voided Midstream Performed By: #### C UU, ADDONUAPLUS #### [facility] [address] [place] [address] [place] Nitrite,Urine Negative Normal Negative [facility] Comment on above: Order Comment: Name Collection Type:: Clean-Voided Midstream Performed By: #### C UU, ADDONUAPLUS #### [address] Occult Blood,Urine Negative Normal Negative [facility] Comment on above: Order Comment: Name Collection Type:: Clean-Voided Midstream Result Comment: PERF ORMED BY: [place] [address] PATHOLOGIST SHOE TRIMMER KIRSTIN ALFORD M.D. Performed By: #### C UU, ADDONUAPLUS #### [facility] [address] [place] [address] pH (U) 5.5 [pH] Normal 5.0-9.0 [facility] Comment on above: Order Comment: Name Collection Type:: Clean-Voided Midstream Performed By: #### C UU, ADDONUAPLUS #### [facility] [address] [place] [address] [place] Protein,Urine Negative Normal Negative [facility] Comment on above: Order Comment: Name Collection Type:: Clean-Voided Midstream Performed By: #### C UU, ADDONUAPLUS #### [place] [address] [place] RBC,Urine 3-4 Normal 0-4 [facility] Comment on above: Order Comment: Name Collection Type:: Clean-Voided Midstream Performed By: #### C UU, ADDONUAPLUS #### [facility] [address] [place] [address] Specificy [place],Urine 1.003 Normal 1.001-1.03 0 [facility] Comment on above: Order Comment: Name Collection Type:: Clean-Voided Midstream Performed By: #### C UU, ADDONUAPLUS #### [address] Squamous Epithelial Cell,Urine 1-2 Normal 0-2 [facility] Comment on above: Order Comment: Name Collection Type:: Clean-Voided Midstream Performed By: #### C UU, ADDONUAPLUS #### [address] Urobilinogen,Urine Normal Normal Normal [facility] Comment on above: Order Comment: Name Collection Type:: Clean-Voided Midstream Performed By: #### C UU, ADDONUAPLUS #### [address] WBC,Urine 5-9 High 0-4 [facility] Comment on above: Order Comment: Name Collection Type:: Clean-Voided Midstream Performed By: #### C UU, ADDONUAPLUS #### [address] ECG 12 lead ECGon 07-02-2022 ECG 12 lead ECG [facility] [place] [address] [place] [address] Electrocardiograph Report Signed Patient: Shefali Riggs MR#: [id number] : 1970 Acct:[id number] Age/Sex: 52 / F ADM Date: 07/02/22 Loc: Room: [address] [place] [address] Type: DIS INOo Attending Dr: Savanna Orellana [...] sinus rhythm Confirmed by Micah VALDERRAMA DO ([id number]) on 07/02/2022 8:51:25 PM Referred By: Electronically Signed By:Micah VALDERRAMA DO Transcribed By: MUS Signed By Micah Valderrama DO 0 07/02/222050 Normal [facility] Eosinophils Auto (Bld) [#/Vo l]Ordered By: Edward Christian on 07-02-2022 Eosinophils (Bld) [#/Vol] 0.7 10*3/uL 0.0-0.45 [facility] Eosinophils/100 WBC Auto (Bl d)Ordered By: Edward Christian on 07-02-2022 Eosinophils/100 WBC (Bld) 6.4 % . [facility] Erythrocyte distribution wid th Auto (RBC) [Ratio]Ordered By: Edward Christian on 07-02-2022 Erythrocyte distribution width (RBC) [Ratio] 13.6 % 11.9-15.3 [facility] Estimated glomerular filtrat ion rate (GFR) non- AmericanOrdered By: Edward Christian on 07-02-2022 GFR/1.73 sq M.predicted among non-blacks MDRD (S/P/Bld) [Vol rate/Area] > 60 mL/Min [facility] Glucose Glucometer (BldC) [M ass/Vol]Ordered By: Edward Christian on 07-02-2022 Glucose [Mass/Vol] 140 mg/dL [facility] Comment on above: Random Glucose Refer ence Range is dependent on time and content of last meal. Glucose of more than 200 mg/dL in a nonstressed, ambulatory subject supports the diagnosis of Diabetes Mellitus. Glucose Poct Glucometerson 0 07-02-2022 Commemt1 [facility] Comment on above: Result Comment: Glu2 : WILL NOTIFY DR/RN Performed By: #### G LULS #### Point of Care testing , Commemt2 Cleaned Meter [facility] Comment on above: Result Comment: PERF ORMED BY: [facility] [address] [place] [address] PATHOLOGIST SHOE TRIMMER KIRSTIN ALFORD M.D. Performed By: #### G LULS #### Point of Care testing , Glucose [Mass/Vol] 140 mg/dL Normal [facility] Comment on above: Result Comment: [place] Glucose Reference Range is dependent on time and content of last meal. Glucose of more than 200 mg/dL in a nonstressed, ambulatory subject supports the diagnosis of Diabetes Mellitus. Performed By: #### G LULS #### Point of Care testing , Hematocrit Auto (Bld) [Volum e fraction]Ordered By: Edward Christian on 07-02-2022 Hematocrit (Bld) [Volume fraction] 46.6 % 34.0-46.4 [facility] Hemoglobin [Mass/volume] in BloodOrdered By: Edward Christian on 07-02-2022 Hemoglobin (Bld) [Mass/Vol] 15.9 g/dL 11.8-15.4 [facility] ISTAT XRay CREon 07-02-2022 Creatinine [Mass/Vol] 0.9 mg/dL Normal 0.6-1.3 [facility] Comment on above: Result Comment: ER/E SD physician is notified/shown all ISTAT results. Critical values may be confirmed by laboratory testing if deemed necessary by ER attending doctor. Performed By: #### I SCRE #### [address] Point of Care testing , ISTAT GFR ( > 60 Normal [facility] Comment on above: Result Comment: GFR estimated reference range: According to KDOQI guidelines, <60 ml/min/1.73m2 is sufficient to diagnose a patient with chronic kidney disease. PERFORMED BY: [place] [address] PATHOLOGIST SHOE TRIMMER KIRSTIN ALFORD M.D. Performed By: #### I SCRE #### [address] Point of Care testing , ISTAT GFR (Non- Am > 60 Normal [facility] Comment on above: Performed By: #### I SCRE #### [place] [id number] [place] Point of Care testing , Ketones Auto test strip (U) [Mass/Vol]Ordered By: Edward Christian on 07-02-2022 Ketones (U) [Mass/Vol] Negative Negative Fi [facility] Laboratory - CoagulationOrde red By: Edward Christian on 07-02-2022 PT Coag (PPP) [Time] 10.8 s 9.0-12.9 [facility] Laboratory - UrinalysisOrder ed By: Edward Christian on 07-02-2022 Hyaline casts LM Ql (Urine sed) 0-8 [LPF] 0-8 [facility] Leukocytes [#/volume] correc dario for nucleated erythrocytes in Blood by Automated counOrdered By: Edward Christian on 07-02-2022 WBC corrected for nucl RBC Auto (Bld) [#/Vol] 10.8 10*3/uL 3.8-11.6 [facility] Lymphocytes Auto (Bld) [#/Vo l]Ordered By: Edward Christian on 07-02-2022 Lymphocytes (Bld) [#/Vol] 3.3 10*3/uL 1.00-4.8 [facility] Lymphocytes/100 WBC Auto (Bl d)Ordered By: Edward Christian on 07-02-2022 Lymphocytes/100 WBC (Bld) 30.5 % . [facility] MCH Auto (RBC) [Entitic mass ]Ordered By: Edward Christian on 07-02-2022 MCH (RBC) [Entitic mass] 31.6 pg 24.7-34.3 [facility] MCHC Auto (RBC) [Mass/Vol]Or dered By: Edward Christian on 07-02-2022 MCHC (RBC) [Mass/Vol] 34.2 g/dL 32.0-35.0 [facility] MCV Auto (RBC) [Entitic vol] Ordered By: Edward Christian on 07-02-2022 MCV (RBC) [Entitic vol] 92.3 fL 80-100 [facility] Monocyte distribution width [Entitic volume] in Blood by AutomatedOrdered By: Edward Christian on 07-02-2022 Monocyte distribution width Auto (Bld) [Entitic vol] 18.05 % 0.00-20.00 [facility] Monocytes Auto (Bld) [#/Vol] Ordered By: Edward Christian on 07-02-2022 Monocytes (Bld) [#/Vol] 1.5 10*3/uL 0.0-0.8 [facility] Monocytes/100 WBC Auto (Bld) Ordered By: Edward Christian on 07-02-2022 Monocytes/100 WBC (Bld) 14.0 % . [facility] Neutrophils Auto (Bld) [#/Vo l]Ordered By: Edward Christian on 07-02-2022 Neutrophils (Bld) [#/Vol] 5.2 10*3/uL 1.8-7.7 [facility] Neutrophils/100 WBC Auto (Bl d)Ordered By: Edward Christian on 07-02-2022 Neutrophils/100 WBC (Bld) 48.3 % . [facility] Nitrite Test strip Ql (U)Ord ered By: Edward Christian on 07-02-2022 Nitrite Ql (U) Negative Negative [facility] No Panel InformationOrdered By: Shari Kang on 07-02-2022 POC Estimated GFR > 60 [facility] Comment on above: GFR estimated refere nce range: According to KDOQI guidelines, <60 ml/min/1.73m2 is sufficient to diagnose a patient with chronic kidney disease. POC Estimated GFR Non- Amer > 60 [facility] No Panel InformationOrdered By: Edward Christian on 07-02-2022 Estimated GFR () > 60 mL/Min [facility] Comment on above: GFR estimated refere nce range: According to KDOQI guidelines, <60 ml/min/1.73m2 is sufficient to diagnose a patient with chronic kidney disease. Pharmacy Creatinine Clearance (Chem 83.99 [facility] Bedside Glucose #2 Comment Cleaned meter [facility] Bedside Glucose Comment See comment [facility] Comment on above: Glu2: WILL NOTIFY /RN Nucleated erythrocytes [Pres ence] in Blood by Automated countOrdered By: Edward Christian on 07-02-2022 Nucleated RBC Auto Ql (Bld) 0.2 /100{WBC} 0-0.5 [facility] Partial Thromboplastin Timeo n 07-02-2022 aPTT Coag (Bld) [Time] 29.4 s Normal 25.1-36.5 Fi [facility] Comment on above: Result Comment: PERF ORMED BY: [facility] [address] [place] [address] PATHOLOGIST SHOE TRIMMER KIRSTIN ALFORD M.D. Performed By: #### C BC, PT, HS TROP, CK, CKMB, BMP, PTT ####[facility] [address] [facility] [place] [address] [facility] Platelet mean volume Auto (B ld) [Entitic vol]Ordered By: Edward Christian on 07-02-2022 Platelet mean volume (Bld) [Entitic vol] 8.4 fL 6.3-10.7 [facility] Platelet poor plasma interna tional normalized ratio (INR) by coagulation assay (relatOrdered By: Edward Christian on 07-02-2022 INR Coag (PPP) [Relative time] 0.9 {INR} [facility] Comment on above: INR Therapeutic Rang [...] 07-02-2022 Platelets (Bld) [#/Vol] 302 10*3/uL 150-450 [facility] Protein Auto test strip (U) [Mass/Vol]Ordered By: Edward Christian on 07-02-2022 Protein (U) [Mass/Vol] Negative Negative Fi [facility] Prothrombin Time INRon 07-02 INR Coag (PPP) [Relative time] 0.9 {INR} Normal [facility] Comment on above: Result Comment: INR [...] PT, HS TROP, CK, CKMB, BMP, PTT ####[facility] [address] [place] [id number] [facility] PT Coag (PPP) [Time] 10.8 s Normal 9.0-12.9 [facility] Comment on above: Performed By: #### C BC, PT, HS TROP, CK, CKMB, BMP, PTT ####[facility] [id number] [place] [id number] [facility] RBC Auto (Bld) [#/Vol]Ordere d By: Edward Christian on 07-02-2022 RBC (Bld) [#/Vol] 5.04 10*6/uL 3.60-5.00 [facility] Serum or plasma anion gap de terminationOrdered By: Edward Christian on 07-02-2022 Anion gap [Moles/Vol] 17.0 mmol/L 6.0-15.0 [facility] Serum or plasma calcium priya urement (mass/volume)Ordered By: Edward Christian on 07-02-2022 Calcium [Mass/Vol] 9.3 mg/dL 8.2-10.2 [facility] Serum or plasma chloride arielle surement (moles/volume)Ordered By: Edward Christian on 07-02-2022 Chloride [Moles/Vol] 98 mmol/L 95-114 [facility] Serum or plasma creatine kin ase MB (CKMB)/total creatine kinase (CK) ratio by calculaOrdered By: Edward Christian on 07-02-2022 CK.MB Calc [Catalytic fraction] 1.3 % 0.00-2.50 [facility] Serum or plasma creatine kin ase MB measurement (mass/volume)Ordered By: Edward Christian on 07-02-2022 CK.MB [Mass/Vol] 1.9 ng/mL 0.6-6.3 [facility] Serum or plasma glucose priya urement (mass/volume)Ordered By: Edward Christian on 07-02-2022 Glucose [Mass/Vol] 111 mg/dL 70-100 [facility] Comment on above: ADA recommended refe rence rangeRandom Glucose Reference Range is dependent on time and content of last meal. Glucose of more than 200 mg/dL in a nonstressed, ambulatory subject supports the diagnosis of Diabetes Mellitus. Serum or plasma potassium me asurement (moles/volume)Ordered By: Edward Christian on 07-02-2022 Potassium [Moles/Vol] 3.7 mmol/L 3.5-5.1 [facility] Serum or plasma sodium measu rement (moles/volume)Ordered By: Edward Christian on 07-02-2022 Sodium [Moles/Vol] 135 mmol/L 136-146 [facility] Serum or plasma total carbon dioxide measurement (moles/volume)Ordered By: Edward Christian on 07-02-2022 CO2 [Moles/Vol] 23.7 mmol/L 22.0-30.0 [facility] Serum or plasma urea nitroge n measurement (mass/volume)Ordered By: Edward Christian on 07-02-2022 Urea nitrogen [Mass/Vol] 10 mg/dL - [facility] Specific gravity Auto test s trip (U) [Rel density]Ordered By: Edward Crhistian on 07-02-2022 Specific gravity (U) [Rel density] 1.003 1.001-1.03 0 [facility] Squamous epithelial cells de tection in urine sediment by light microscopyOrdered By: Edward Christian on 07-02-2022 Epithelial cells.squamous LM Ql (Urine sed) 1-2 [HPF] 0-2 [facility] Troponin I High Sensitivityo n 07-02-2022 Troponin I High Sensitivity 4 pg/mL Normal 0-15 [facility] Comment on above: Result Comment: PERF ORMED BY: [facility] [address] [place] [address] PATHOLOGIST SHOE TRIMMER KIRSTIN ALFORD M.D. Performed By: #### C BC, PT, HS TROP, CK, CKMB, BMP, PTT ####[facility] [address] [place] [address] [facility] Troponin I.cardiac [Mass/vol ume] in Serum or Plasma by High sensitivity methodOrdered By: Edward Christian on 07-02-2022 Troponin I.cardiac High sensitivity method [Mass/Vol] 4 pg/mL 0-15 [facility] Urine Cultureon 07-02-2022 Bacteria identified Cx Nom (U) 20,000 colonies/ml mixed bacterial skin contaminants 2 Days PERFORMED BY: [place] [address] PATHOLOGIST SHOE TRIMMER KIRSTIN ALFORD M.D. Normal [facility] Comment on above: Performed By: #### C UU, ADDONUAPLUS #### [address] Urine bacteria detection by automated methodOrdered By: Edward Christian on 07-02-2022 Bacteria Auto Ql (U) None seen None Seen [facility] Urine clarity by refractomet ry automatedOrdered By: Edward Christian on 07-02-2022 Clarity Refractometry automated (U) Clear Clear [facility] Urine culture routineOrdered By: Edward Christian on 07-02-2022 Bacteria identified Cx Nom (U) 2 Days [facility] Urine glucose measurement by automated test strip (mass/volume)Ordered By: Edward Christian on 07-02-2022 Glucose Auto test strip (U) [Mass/Vol] Normal mg/dL Normal [facility] Urine hemoglobin detection b y automated test stripOrdered By: Edward Christian on 07-02-2022 Hemoglobin Auto test strip Ql (U) Negative Negative [facility] Urine leukocyte esterase det ection by automated test stripOrdered By: Edward Christian on 07-02-2022 Leukocyte esterase Auto test strip Ql (U) 1+ Negative [facility] Urobilinogen Auto test strip (U) [Mass/Vol]Ordered By: Edward Christian on 07-02-2022 Urobilinogen (U) [Mass/Vol] Normal mg/dL Normal [facility] WBC Auto (Bld) [#/Vol]Ordere d By: Edward Christain on 07-02-2022 WBC (Bld) [#/Vol] 10.8 10*3/uL 3.8-11.6 [facility] pH Auto test strip (U)Ordere d By: Edward Christian on 07-02-2022 pH (U) 5.5 [pH] 5.0-9.0 [facility] Physician Referralon Physician Referral [id number] Normal [facility] PAP ACOG PANEL 2: 21 to 29on 04-28-2022 . . Normal [facility] Comment on above: Result Comment: Perf ormed at: WB Performed By: #### [id number] #### [facility] [address] [place] [address] [address] Alley Ochoa Age Gdln ACOG Testing Normal [facility] Comment on above: Performed By: #### [id number] #### [facility] [address] [place] [address] [address] Alley Ochoa DIAGNOSIS: Comment Abnormal [facility] Comment on above: Result Comment: EPIT HELIAL CELL ABNORMALITY. LOW GRADE SQUAMOUS INTRAEPITHELIAL LESION (LSIL). Performed at: WB Performed By: #### [id number] #### [facility] [address] [place] [address] [address] Alley Ochoa Electronically signed by: Comment Normal [facility] Comment on above: Result Comment: Bon Padgett MD, Pathologist Performed at: WB Performed By: #### [id number] #### [facility] [address] [address] [address] Alley Ochoa HPV Aptima Positive Abnormal Negative [facility] Comment on above: Result Comment: This nucleic acid amplification test detects fourteen high-risk HPV types (16,18,31,33,35,39,45,51,52,56,58,59,66,68) without differentiation. Performed at: =G Performed By: #### [id number] #### [facility] [address] [address] [address] Alley Ochoa HPV Genotype Reflex Comment Normal [facility] Comment on above: Result Comment: Crit eria not met, HPV Genotype not performed. Performed at: WB Performed By: #### [id number] #### [facility] [address] [place] [address] Dr. Alley Ochoa Methodology: Comment [facility] Comment on above: Result Comment: This liquid based ThinPrep(R) pap test was screened with the use of an image guided system. Performed at: WB Performed By: #### [id number] #### [facility] [address] [place] [address] Dr. Alley Ochoa Note: Comment Normal [facility] Comment on above: Result Comment: The Pap smear is a screening test designed to aid in the detection of premalignant and malignant conditions of the uterine cervix. It is not a diagnostic procedure and should not be used as the sole means of detecting cervical cancer. Both false-positive and false-negative reports do occur. . Performed at: WB Performed By: #### [id number] #### [facility] [address] [place] [address] Dr. Alley Ochoa Pathologist Provided ICD10 Comment Normal [facility] Comment on above: Result Comment: [id number] Performed at: WB Performed By: #### [id number] #### [facility] [address] [place] [address] Dr. Alley Ochoa Performed by: Comment Normal [facility] Comment on above: Result Comment: Demi Pelaez, [place] Performed at: WB Performed By: #### [id number] #### [facility] [address] [place] [address] Dr. Alley Ochoa Specimen adequacy: Comment Normal [facility] Comment on above: Result Comment: Sati sfactory for evaluation. No endocervical component is identified. Performed at: WB Performed By: #### [id number] #### [facility] [address] [place] [address] Dr. Alley Ochoa COVID/FLU RT-PCRon SARS-CoV-2 (COVID-19) RNA SCOTTY+probe Ql (Unsp spec) Negative [employer] Other COVID/FLU RT-PCR Negative [employer] Other Quick Strepon 04-14-2022 S. pyogenes Org specific cx Ql (Throat) Negative [employer] Other Quick Strep [employer] Other Cardiac Stress Teston 2021 Cardiac Stress Test [facility] [address] [place] [address], [address] [place] [address] Exercise Stress Test Patient Name: SHEFALI Ordering Physician: [id number] Jerome Pelaez NP TARAWA TERRACE Study Date: 02/22/2022 Reading Physician: [id number] Rosio Riojas MD MRN/PID: [id number] Supervising Physician: Jorge A Riojas MD Accession/Order#: [id number] Referring Physician: JEROME PELAEZ Date of : 1970 PCP: Osiel Pettit MD Gender: F Fellow: Height: 162.56 cm Nurse: Zuleyma Bell RN Weight: 74.84 kg [employer] Supervisor: MANINDER BSA: 1.80 m2 Technologist: BMI: 28.32 kg/m2 Additional Staff: Age: 52 years cc report to: Patient Location: cc report to: [id number] Jerome Pelaez NP Study Type: Cardiac Stress Test Diagnosis/ICD: I25.10-Atherosclerotic heart disease Indication: Pre-Op Evaluation Procedure/CPT: Stress Test Interpretation-[id number]; Stress Test Supervision-[id number] Falls Risk: Low: Patient has low risk [...] The adequate level of stress was achieved. [id number] Rosio Riojas MD Electronically signed on 02/22/2022 at 4:37:00 PM Final Normal [facility] Office Visit (Cardiology)on 02-01-2022 Follow-up visit Diagnoses/Problems Assessed Atherosclerosis of coronary artery of [place] heart without angina pectoris (414.01) (I25.10) Jun [...] health. Orders Atherosclerosis of coronary artery of [place] heart without angina pectoris Start: Furosemide 20 MG Oral Tablet; Take one tablet daily as needed Cardiac Stress Test; Status:Hold For - Scheduling; Requested for:[id number]; BMI 28.0-28.9,adult Healthy Weight Tips; Status:Complete; Done: 01Feb2022 SocHx: Current every day smoker Tobacco Use Screening; Status:Complete; Done: [id number] Tobacco Use Screening; Status:Complete; Done: [id number] Patient Instructions Please bring all medicines, vitamins, [...] Screening.on 022 Adult depression screening assessment No [facility] [address] DO Work Phone: Tobacco use status [facility]PH[facility] a) Yes [facility] DO Work Phone: Tobacco Screening. Yes [facility] 250 DO Work Phone: CBC AUTO DIFFon 01-31-2022 BASO # 0.1 103/ul Normal 0.0-0.1 [facility] Comment on above: Performed By: #### C BC #### [facility] [address] [place] [address] Dr. Alley Ochoa Basophils/100 WBC (Bld) 0.6 % Normal 0.2-2.0 [facility] Comment on above: Performed By: #### C BC #### [facility] [address] [place] [address] Dr. Alley Ochoa EO # 0.5 103/ul Normal 0.0-0.7 [facility] Comment on above: Performed By: #### C BC #### [facility] [address] [place] [address] Dr. Alley Ochoa Eosinophils/100 WBC (Bld) 4.5 % Normal 0.9-7.0 [facility] Comment on above: Performed By: #### C BC #### [facility] [address] [place] [address] Dr. Alley Ochoa Erythrocyte distribution width (RBC) [Ratio] 13.2 % Normal 11.0-15.0 [facility] Comment on above: Performed By: #### C BC #### [facility] [address] [place] [address] Dr. Alley Ochoa Hematocrit (Bld) [Volume fraction] 47.2 % Normal 36.0-48.0 [facility] Comment on above: Performed By: #### C BC #### [facility] [address] [place] [address] Dr. Alley Ochoa Hemoglobin (Bld) [Mass/Vol] 15.9 g/dL Normal 12.0-16.0 [facility] Comment on above: Performed By: #### C BC #### [facility] [address] [place] [address] Dr. Alley Ochoa IG # 0.06 10e3/ul Critically high 0.00-0.03 [facility] Comment on above: Performed By: #### C BC #### [facility] [address] [place] [address] Dr. Alley Ochoa IG % 0.5 % Normal 0.0-0.5 [facility] Comment on above: Performed By: #### C BC #### [facility] [address] [place] [address] Dr. Alley Ochoa LYMPH # 2.0 103/ul Normal 1.2-3.8 [facility] Comment on above: Performed By: #### C BC #### [facility] [address] [place] [address] Dr. Alley Ochoa Lymphocytes/100 WBC (Bld) 17.8 % Critically low 20.5-60.0 [facility] Comment on above: Performed By: #### C BC #### [facility] [address] [place] [address] Dr. Alley Ochoa MANUAL DIFF REQ NO Normal [facility] Comment on above: Performed By: #### C BC #### [facility] [address] [place] [address] Dr. Alley Ochoa MCH (RBC) [Entitic mass] 31.2 pg Normal 26.7-34.0 [facility] Comment on above: Performed By: #### C BC #### [facility] [address] [place] [address] Dr. Alley Ochoa MCHC (RBC) [Mass/Vol] 33.7 g/dL Normal 29.9-35.2 [facility] Comment on above: Performed By: #### C BC #### [facility] [address] [place] [address] Dr. Alley Ochoa MCV (RBC) [Entitic vol] 92.5 fL Normal 81.0-99.0 [facility] Comment on above: Performed By: #### C BC #### [facility] [address] [place] [address] Dr. Alley Ochoa MONO # 1.3 103/ul Critically high 0.3-0.8 [facility] Comment on above: Performed By: #### C BC #### [facility] [address] [place] [address] Dr. Alley Ochoa Monocytes/100 WBC (Bld) 11.5 % Normal 1.7-12.0 [facility] Comment on above: Performed By: #### C BC #### [facility] [address] [place] [address] Dr. Alley Ochoa NEUT # 7.2 103/ul Critically high 1.4-6.5 [facility] Comment on above: Performed By: #### C BC #### [facility] [address] [place] [address] Dr. Alley Ochoa Neutrophils/100 WBC (Bld) 65.1 % Normal 43.0-75.0 [facility] Comment on above: Performed By: #### C BC #### [facility] [address] [place] [address] Dr. Alley Ochoa Platelet mean volume (Bld) [Entitic vol] 10.0 fL Normal 9.5-13.5 [facility] Comment on above: Performed By: #### C BC #### [facility] [address] [place] [address] Dr. Alley Ochoa PLT 273 103/ul Normal 150-450 [facility] Comment on above: Performed By: #### C BC #### [facility] [address] [place] [address] Dr. Alley Ochoa RBC 5.10 106/ul Normal 4.20-5.40 [facility] Comment on above: Performed By: #### C BC #### [facility] [address] [place] [address] Dr. Alley Ochoa WBC 11.0 103/ul Normal 4.0-11.0 [facility] Comment on above: Performed By: #### C BC #### [facility] [address] [place] [address] Dr. Alley Ochoa GLYCOHEMOGLOBIN A1Con 2021 ADA RECOMMENDATION SEE BELOW Normal [facility] Comment on above: Result Comment: ADA RECOMMENDED LIMIT 4.0 - 6.0 ADA THERAPEUTIC TARGET < 7.0 ACTION SUGGESTED > 7.0 Performed By: #### A 1C #### [facility] [address] [place] [address] Dr. Alley Ochoa Glucose [Mass/Vol] 120 mg/dL Normal [facility] Comment on above: Performed By: #### A 1C #### [facility] [address] [place] [address] Dr. Alley Ochoa HbA1c (Bld) [Mass fraction] 5.8 % Normal 4.5-6.2 [facility] Comment on above: Performed By: #### A 1C #### [facility] [address] [place] [address] Dr. Alley Ochoa LIPID PROFILEon 01-31-2022 CHOL-HDL RATIO NORM SEE BELOW Normal [facility] Comment on above: Result Comment: 3.3 - 4.4 LOW RISK 4.4 - 7.1 AVERAGE RISK 7.1 - 11.0 MODERATE RISK >11.0 HIGH RISK Performed By: #### C MP, LIPID #### [facility] [address] [address] [address] Alley Ochoa Cholesterol [Mass/Vol] 156 mg/dL Normal <=200 [facility] Comment on above: Performed By: #### C MP, LIPID #### [facility] [address] [address] [address] Alley Ochoa Cholesterol in HDL [Mass/Vol] 42 mg/dL Normal 40-60 [facility] Comment on above: Performed By: #### C MP, LIPID #### [facility] [address] [address] [address] Alley Ochoa Cholesterol in LDL [Mass/Vol] 65.0 mg/dL Normal [facility] Comment on above: Performed By: #### C MP, LIPID #### [facility] [address] [place] [address] Dr. Alley Ochoa Cholesterol.total/Chol esterol in HDL [Mass ratio] 3.7 {ratio} Normal [facility] Comment on above: Performed By: #### C MP, LIPID #### [facility] [address] [address] [address] Alley Ochoa HDL NORMAL > or = 60 mg/dl - LO W CARDIOVASCULAR RISK <40 mg/dl - HIGH CARDIOVASCULAR RISK Normal [facility] Comment on above: Performed By: #### C MP, LIPID #### [facility] [address] [address] [address] Alley Ochoa LDL CALC NORMAL SEE BELOW Normal [facility] Comment on above: Result Comment: <100 mg/dl OPTIMAL 100 - 129 mg/dl NEAR OR ABOVE OPTIMAL 130 - 159 mg/dl BORDERLINE HIGH 160 - 189 mg/dl HIGH >190 mg/dl VERY HIGH Performed By: #### C MP, LIPID #### [facility] [address] [address] [address] Alley Ochoa Triglyceride [Mass/Vol] 245 mg/dL Critically high <=150 [facility] Comment on above: Performed By: #### C MP, LIPID #### [facility] [address] [address] [address] Alley Ochoa VLDL CALC 49.0 mg/dL Normal [facility] Comment on above: Performed By: #### C MP, LIPID #### [facility] [address] [place] [address] Dr. Alley Ochoa PROF 14(COMP METB)on 022 Albumin [Mass/Vol] 3.8 g/dL Normal 3.4-5.0 [facility] Comment on above: Performed By: #### C MP, LIPID #### [facility] [address] [place] [address] Dr. Alley Ochoa Albumin/Globulin [Mass ratio] 0.9 {ratio} Normal [facility] Comment on above: Performed By: #### C MP, LIPID #### [facility] [address] [place] [address] Dr. Alley Ochoa ALP [Catalytic activity/Vol] 92 U/L Normal 46-116 [facility] Comment on above: Performed By: #### C MP, LIPID #### [facility] [address] [place] [address] Dr. Alley Ochoa ALT [Catalytic activity/Vol] 35 U/L Normal 14-59 [facility] Comment on above: Performed By: #### C MP, LIPID #### [facility] [address] [place] [address] Dr. Alley Ochoa Anion gap [Moles/Vol] 13.5 mmol/L Normal [facility] Comment on above: Performed By: #### C MP, LIPID #### [facility] [address] [place] [address] Dr. Alley Ochoa AST [Catalytic activity/Vol] 28 U/L Normal 15-37 [facility] Comment on above: Performed By: #### C MP, LIPID #### [facility] [address] [place] [address] Dr. Alley Ochoa Bilirubin [Mass/Vol] 0.6 mg/dL Normal 0.2-1.0 [facility] Comment on above: Performed By: #### C MP, LIPID #### [facility] [address] [place] [address] Dr. Alley Ochoa Calcium [Mass/Vol] 9.1 mg/dL Normal 8.5-10.1 [facility] Comment on above: Performed By: #### C MP, LIPID #### [facility] [address] [place] [address] Dr. Alley Ochoa Chloride [Moles/Vol] 101 mmol/L Normal 98-107 [facility] Comment on above: Performed By: #### C MP, LIPID #### [facility] [address] [place] [address] Dr. Alley Ochoa CO2 [Moles/Vol] 26.2 mmol/L Normal 21.0-32.0 [facility] Comment on above: Performed By: #### C MP, LIPID #### [facility] [address] [place] [address] Dr. Alley Ochoa Creatinine [Mass/Vol] 0.80 mg/dL Normal 0.55-1.02 [facility] Comment on above: Performed By: #### C MP, LIPID #### [facility] [address] [place] [address] Dr. Alley Ochoa EGFR-AF BAHRAINI >60 Normal >=60 [facility] Comment on above: Performed By: #### C MP, LIPID #### [facility] [address] [place] [address] Dr. Alley Ochoa EGFR-NON AF BAHRAINI >60 Normal >=60 [facility] Comment on above: Performed By: #### C MP, LIPID #### [facility] [address] [place] [address] Dr. Alley Ochoa Globulin (S) [Mass/Vol] 4.0 g/dL Normal [facility] Comment on above: Performed By: #### C MP, LIPID #### [facility] [address] [place] [address] Dr. Alley Ochoa Glucose [Mass/Vol] 115 mg/dL Critically high 74-[address] [facility] Comment on above: Performed By: #### C MP, LIPID #### [facility] [address] [place] [address] Dr. Alley Ochoa Potassium [Moles/Vol] 4.7 mmol/L Normal 3.5-5.1 [facility] Comment on above: Performed By: #### C MP, LIPID #### [facility] [address] [address] [address] Alley Ochoa Protein [Mass/Vol] 7.8 g/dL Normal 6.4-8.2 [facility] Comment on above: Performed By: #### C MP, LIPID #### [facility] [address] [address] [address] Alley Ochoa Sodium [Moles/Vol] 136 mmol/L Normal 136-145 [facility] Comment on above: Performed By: #### C MP, LIPID #### [facility] [address] [place] [address] Dr. Alley Ochoa Urea nitrogen [Mass/Vol] 12.0 mg/dL Normal 7.0-18.0 [facility] Comment on above: Performed By: #### C MP, LIPID #### [facility] [address] [place] [address] Dr. Alley Ochoa Urea nitrogen/Creatinine [Mass ratio] 15.0 mg/mg Normal [facility] Comment on above: Performed By: #### C MP, LIPID #### [facility] [address] [place] [address] Dr. Alley Ochoa Quick Fluon 08-12-2021 FLUAV Ab CF (S) [Titer] Negative Contraqer [facility] [employer] Other FLUBV Ab CF (S) [Titer] Negative [facility] [employer] Other Vital Signs Date Time Vital Sign Value Performing Clinician Facility 01-28-2024 10:59-0400 Body height 162.56 cm [facility] 01-28-2024 10:59-0400 Body mass index (BMI) [Ratio] 27.9 kg/m2 [facility] 01-28-2024 10:59-0400 Body weight 73.93 kg [facility] 01-28-2024 10:59-0400 Diastolic blood pressure 78 mm[Hg] [facility] 01-28-2024 10:59-0400 Heart rate 72 /min [facility] 01-28-2024 10:59-0400 SaO2% (BldA) [Mass fraction] 98 % [facility] 01-28-2024 10:59-0400 Systolic blood pressure 120 mm[Hg] [facility] 11-21-2023 14:33-0400 Diastolic blood pressure 82 mm[Hg] [address] 11-21-2023 14:33-0400 Heart rate 66 /min [address] 11-21-2023 14:33-0400 Systolic blood pressure 128 mm[Hg] [address] 01-19-2023 10:00-0400 Body height 162.56 cm Karmen Tovar Other [employer] Other 01-19-2023 10:00-0400 Body mass index (BMI) [Ratio] 29.18 kg/m2 Karmen Tovar Other [employer] Other 01-19-2023 10:00-0400 Body weight 77.11 kg Karmen Tovar Other [employer] Other 01-19-2023 10:00-0400 Diastolic blood pressure 88 mm[Hg] Karmen Tovar Other [employer] Other 01-19-2023 10:00-0400 Systolic blood pressure 118 mm[Hg] Karmen Tovar Other [employer] Other 01-05-2023 15:05-0400 Body height 162.56 cm Mag Perry Other [employer] Other 01-05-2023 15:05-0400 Body mass index (BMI) [Ratio] 28.66 kg/m2 Mag Perry Other [employer] Other 01-05-2023 15:05-0400 Body temperature 98.1 [degF] Mag Vicky Other [employer] Other 01-05-2023 15:05-0400 Body weight 75.75 kg Mag Vicky Other [employer] Other 01-05-2023 15:05-0400 Diastolic blood pressure 81 mm[Hg] Mag Vicky Other [employer] Other 01-05-2023 15:05-0400 Respiratory rate 18 /min Mag Vicky Other [employer] Other 01-05-2023 15:05-0400 SaO2% (BldA) [Mass fraction] 93 % Mag Vicky Other [employer] Other 01-05-2023 15:05-0400 Systolic blood pressure 131 mm[Hg] Mag Perry Other [employer] Other 09-05-2022 11:25-0400 Body height 162.56 cm Kimberley Rodríguez Other [employer] Other 09-05-2022 11:25-0400 Body mass index (BMI) [Ratio] 28.42 kg/m2 Kimberley Rodríguez Other [employer] Other 09-05-2022 11:25-0400 Body temperature 98 [degF] Kimberley Rodríguez Other [employer] Other 09-05-2022 11:25-0400 Body weight 75.12 kg Kimberley Rodríguez Other [employer] Other 09-05-2022 11:25-0400 Diastolic blood pressure 70 mm[Hg] Kimberley Rodríguez Other [employer] Other 09-05-2022 11:25-0400 Respiratory rate 16 /min Kimberley Rodríguez Other [employer] Other 09-05-2022 11:25-0400 SaO2% (BldA) [Mass fraction] 97 % Kimberley Rodríguez Other [employer] Other 09-05-2022 11:25-0400 Systolic blood pressure 125 mm[Hg] Kimberley Rodríguez Other [employer] Other 07-03-2022 15:57-0500 Body height 162.56 cm DO Osiel House Work Phone: [facility] 07-03-2022 12:00-0500 Diastolic blood pressure 78 mm[Hg] DO Osiel House Work Phone: [facility] 07-03-2022 12:00-0500 Heart rate 78 /min DO Osiel House Work Phone: [facility] 07-03-2022 12:00-0500 Respiratory rate 16 /min DO Osiel House Work Phone: [facility] 07-03-2022 12:00-0500 SaO2% (BldA) [Mass fraction] 97 % DO Osiel House Work Phone: [facility] 07-03-2022 12:00-0500 Systolic blood pressure 138 mm[Hg] DO Osiel House Work Phone: [facility] 07-03-2022 08:00-0500 Body temperature 97.8 [degF] DO Osiel House Work Phone: [facility] 07-03-2022 05:40-0500 Body weight 73.1 kg DO Osiel House Work Phone: [facility] 07-02-2022 21:52-0500 Body height 162.56 cm DO Osiel House Work Phone: [facility] 07-02-2022 21:52-0500 Body temperature 97.8 [degF] DO Osiel House Work Phone: [facility] 07-02-2022 21:52-0500 Body weight 73.9 kg DO Osiel House Work Phone: [facility] 07-02-2022 21:52-0500 Diastolic blood pressure 86 mm[Hg] DO Osiel House Work Phone: [facility] 07-02-2022 21:52-0500 Heart rate 65 /min DO Osiel House Work Phone: [facility] 07-02-2022 21:52-0500 Respiratory rate 16 /min DO Osiel House Work Phone: [facility] 07-02-2022 21:52-0500 SaO2% (BldA) [Mass fraction] 96 % DO Osiel House Work Phone: [facility] 07-02-2022 21:52-0500 Systolic blood pressure 144 mm[Hg] DO Osiel House Work Phone: [facility] 07-02-2022 00:00-0500 60 1 Osiel P House Work Phone: [facility] 250 DO Work Phone: Comment on above: [id number] 04-14-2022 15:05-0400 Body height 162.56 cm Kimberley Rodríguez Other [employer] Other 04-14-2022 15:05-0400 Body mass index (BMI) [Ratio] 28.66 kg/m2 Kimberley Rodríguez Other [employer] Other 04-14-2022 15:05-0400 Body temperature 97.9 [degF] Kimberley Rodríguez Other [employer] Other 04-14-2022 15:05-0400 Body weight 75.75 kg Kimberley Rodríguez Other [employer] Other 04-14-2022 15:05-0400 Diastolic blood pressure 74 mm[Hg] Kimberley Rodríguez Other [employer] Other 04-14-2022 15:05-0400 Respiratory rate 18 /min Kimberley Rodríguez Other [employer] Other 04-14-2022 15:05-0400 SaO2% (BldA) [Mass fraction] 96 % Kimberley Rodríguez Other [employer] Other 04-14-2022 15:05-0400 Systolic blood pressure 127 mm[Hg] Kimberley Rodríguez Other [employer] Other 02-01-2022 15:58-0400 Body height 162.56 cm [employer] Work Phone: [facility] DO Work Phone: 02-01-2022 15:58-0400 Body mass index (BMI) [Ratio] 28.32 kg/m2 Osiel [employer] Work Phone: [facility] DO Work Phone: 02-01-2022 15:58-0400 Body surface area Derived from formula 1.8 m2 Osiel [employer] Work Phone: [facility] 250 DO Work Phone: 02-01-2022 15:58-0400 Body weight 74.84 kg Osiel P House Work Phone: [facility] 250 DO Work Phone: 02-01-2022 15:58-0400 Diastolic blood pressure 78 mm[Hg] Osiel P House Work Phone: [facility] 250 DO Work Phone: 02-01-2022 15:58-0400 Heart rate 68 /min Osiel P House Work Phone: [facility] 250 DO Work Phone: 02-01-2022 15:58-0400 Systolic blood pressure 118 mm[Hg] Osiel P House Work Phone: [facility] 250 DO Work Phone: 01-31-2022 14:57-0400 65 1 Osiel [employer] Work Phone: [facility] Work Phone: Comment on above: FSL 08-12-2021 11:15-0500 Body height 162.56 cm Jael Fournier Other [employer] Other 08-12-2021 11:15-0500 Body mass index (BMI) [Ratio] 28.32 kg/m2 Jael Fournier Other [employer] Other 08-12-2021 11:15-0500 Body temperature 98.1 [degF] Jael Fournier Other [employer] Other 08-12-2021 11:15-0500 Body weight 74.84 kg Jael Fournier Other [employer] Other 08-12-2021 11:15-0500 SaO2% (BldA) [Mass fraction] 97 % Jael Fournier Other [employer] Other Encounters Encounter Date Encounter Type Care Provider Facility Start: 01-28-2024 End: 01-28-2024 ambulatory [facility] Work Phone: Start: 01-28-2024 End: 01-28-2024 Patient encounter procedure [facility] Work Phone: Start: 11-21-2023 End: 11-21-2023 ambulatory [facility] [facility] Start: 11-21-2023 End: 11-21-2023 Subsequent hospital visit by physician Nathalie Dupree Stress Room 1 [facility] Comment on above: Atherosclerosis of n ative coronary artery, unspecified whether angina present, unspecified whether ute mountain or transplanted heart Start: 10-16-2023 End: 10-16-2023 ambulatory IVETTE MYERSArturo Not Available Start: 05-07-2023 End: 05-07-2023 ambulatory Karmen Tovar Other [facility] Other Start: 05-07-2023 Telephone encounter Karmen Wilkinsabdullahironni her [facility] Start: 04-04-2023 End: 04-04-2023 ambulatory Karmen Guy Other [facility] Other Start: 04-04-2023 Telephone encounter Karmen Wilkinsglory her [facility] Start: 03-29-2023 End: 03-29-2023 ambulatory Karmen Guy Other [facility] Other Start: 03-29-2023 Telephone encounter Karmen Wilkinsabdullahironni her [facility] Start: 03-02-2023 Rx Renewal Osiel P Eric ball Work Phone: [facility] 250 DO Work Phone: Start: 02-26-2023 Rx Renewal Osiel P Eric ball Work Phone: [facility] 250 DO Work Phone: Start: 01-26-2023 Telephone encounter Osiel Pettit Work Phone: [facility] 250 DO Work Phone: Start: 01-25-2023 AUDIT Osiel ball Work Phone: [facility] 250 DO Work Phone: Start: 01-24-2023 End: 01-24-2023 ambulatory Karmen Guy Other [facility] Other Start: 01-24-2023 Telephone encounter K[facility]en [facility] Start: 01-19-2023 End: 01-19-2023 ambulatory Karmen Guy Other [facility] Other Start: 01-19-2023 Encounter for genera l adult medical examination without abnormal findings Karmen Tovar [facility] Start: 01-19-2023 Initial preventive medicine new patient 40-64yrs Karm[address] Tovar [facility] Start: 01-05-2023 End: 01-05-2023 ambulatory Mag Perry Other [facility] Other Start: 01-05-2023 Office outpatient vi sit 15 minutes Mag Perry [facility] [place] Start: 12-26-2022 Rx Renewal Osiel ball Work Phone: [facility] 250 DO Work Phone: Start: 10-11-[address] [facility] Start: 09-07-2022 End: 09-07-2022 ambulatory Kimberley Rodríguez Other [facility] Other Start: 09-07-2022 Telephone encounter Kimberley Rodríguez [facility] Start: 09-05-2022 Office outpatient vi sit 15 minutes Kimberley Rodríguez [facility] [place] Start: 09-05-2022 End: 09-05-[address] Kimberley [address]ríguez [facility] Work Phone: Start: 09-05-2022 End: 09-05-2022 Departed Referred DO Osiel Pettit Work Phone: [facility] [place] Work Phone: Start: 08-25-2022 End: 08-25-[address] OSIEL PETTIT Facility:[facility]1 Start: 07-16-2022 Rx Renewal Osiel P Hous e Work Phone: [facility] 250 DO Work Phone: Start: 07-05-2022 ambulatory Eduardo ZHOU Facility: [facility] Start: 07-03-2022 Rx Renewal Osiel P Hous e Work Phone: [facility] 250 DO Work Phone: Start: 07-02-2022 End: 07-03-2022 ambulatory Osiel Pettit Facility:[facility] Start: 07-02-2022 End: 07-03-2022 Evaluation and management of inpatient DO Osiel Joseph Work Phone: [facility] [place] [facility] Work Phone: Start: 07-02-2022 End: 07-03-2022 observation encounter DO Osiel Pettit Work Phone: [facility] Work Phone: Start: 06-08-2022 ambulatory Eduardo ZHOU Facility:[facility] Start: 05-17-2022 End: 08-26-[address] DIANA RAMIREZ Facility:[facility]1 Start: 04-20-2022 End: 04-20-[address] OSIEL PETTIT Facility:[facility] Start: 04-17-2022 Rx Renewal Osiel P Hous e Work Phone: [facility] 250 DO Work Phone: Start: 04-14-2022 End: 04-14-2022 ambulatory Kimberley Rodríguez Other [facility] [employer] Other Start: 04-14-2022 Office outpatient vi sit 25 minutes Kimberley Rodríguez [facility] Start: 02-28-2022 Rx Renewal Osiel P Hous e Work Phone: [facility] 250 DO Work Phone: Start: 02-27-2022 Telephone encounter Osiel Pettit Work Phone: [facility] 250 DO Work Phone: Start: 02-22-2022 ambulatory Ms. Jerome Pelaez Facilit [id number] Start: 02-14-2022 Rx Renewal Osiel P Hous e Work Phone: [facility] 250 DO Work Phone: Start: 02-02-2022 Encounter for genera l adult medical examination without abnormal findings DR OSIEL PETTIT [facility] Start: 02-01-2022 ambulatory Ms. Jerome Pelaez Facility: Start: 02-01-2022 Office outpatient vi sit 15 minutes Osiel Pettit Work Phone: [facility] 600 DO Work Phone: Start: 02-01-2022 Patient encounter procedure Osiel Pettit Work Phone: [facility] 250 DO Work Phone: Start: 01-31-2022 End: 02-01-[address] OSIEL PETTIT Facility:[facility]1 Start: 01-31-2022 End: 02-01-2022 Encounter for general adult medical examination without abnormal findings DR OSIEL PETTIT Facility:[facility]1 Start: 01-16-2022 Rx Renewal Osiel P Hous e Work Phone: [facility] 250 DO Work Phone: Start: 12-02-2021 Rx Renewal Osiel P Hous e Work Phone: [facility] 250 DO Work Phone: Start: 11-21-2021 Rx Change Osiel P Hous e Work Phone: [facility] 250 DO Work Phone: Start: 11-17-2021 Rx Change Osiel P Hous e Work Phone: [facility] 600 DO Work Phone: Start: 11-10-2021 Telephone encounter Osiel Pettit Work Phone: [facility] 250 DO Work Phone: Start: 10-26-2021 Rx Renewal Osiel P Hous e Work Phone: [facility] 250 DO Work Phone: Start: 10-19-2021 Telephone encounter Osiel Pettit Work Phone: [facility] 250 DO Work Phone: Start: 08-12-2021 End: 08-12-2021 ambulatory Jael Fournier Other [facility] Other Start: 08-12-2021 Office outpatient vi sit 15 minutes Jael Fournier [facility] Start: 07-15-2021 Rx Renewal Osiel P Hous e Work Phone: [facility] 250 DO Work Phone: Start: 06-28-2018 Patient encounter procedure PROVIDER UNKNOWN Facility:[facility] Patient encounter status Osiel Pettit Work Phone: [facility] 250 DO Work Phone: Procedures Date Procedure [...] 04-19-2025 Screening for malignant neoplasm of cervix [facility] Start: 02-02-2025 Screening for malignant neoplasm of colon [facility] Start: 02-10-2024 Influenza vaccination Influenza Vaccine (Season Ended) [facility] Start: 12-05-2023 FUV, Provider: Elfego Marshall, Status: Pen, Time: 9:00 AM FUV, Provider: Elfego Marshall, Status: Pen, Time: 9:00 AM [facility] 250 DO Work Phone: Start: 12-05-2023 End: 12-05-2023 Patient encounter procedure 12/05/2023 9:00 AM EDT Office Visit [place] [id number] [address] Elfego Marshall DO [address] [place] [address] [place] [address] [facility] Start: 11-06-2023 STRESS MIC, Provider: SHANICE HHVI NUCLEAR 01,[id number], Status: Pen, Time: 11:30 AM STRESS MIC, Provider: SHANICE [facility]VI NUCLEAR 01,[id number], Status: Pen, Time: 11:30 AM [facility] 250 DO Work Phone: Start: 02-09-2023 COVID-19 Vaccine ( season) COVID-19 Vaccine () [facility] Start: 09-05-2022 Bacteria identified in Urine by Culture Urine Culture [facility] Start: 08-02-2022 FUV, Provider: Elfego Marshall, Status: Pen, Time: 9:50 AM FUV, Provider: Elfego Marshall, Status: Pen, Time: 9:50 AM [facility] 250 DO Work Phone: Start: 07-03-2022 Lipid panel [facility] Start: 07-03-2022 End: 07-03-2022 [facility] Start: 07-02-2022 Physical therapy procedure [facility] Start: 07-02-2022 Referral to occupational therapist [facility] Start: 07-02-2022 Referral to speech and language therapy service [facility] Start: 07-02-2022 Hospital admission [facility] Start: 07-02-2022 [facility] Start: 07-02-2022 Referral to neurologist [facility] Start: 07-02-2022 [facility] Start: 07-02-2022 CT angiography of head [facility] Start: 07-02-2022 CT angiography of neck vessels [facility] Start: 07-02-2022 CT Head WO contrast [facility] Start: 07-02-2022 CT of head without contrast CT head stroke alert wo con [facility] Start: 07-02-2022 Plain chest X-ray XR chest 1V portable [facility] Start: 07-02-2022 XR Chest Single view [facility] Start: 07-02-2022 Bacteria identified in Urine by Culture Urine Culture [facility] Start: 07-02-2022 Urine culture Urine Culture [facility] Start: 02-22-2022 STRESS MIC, Provider: SHANICE [facility]VI NUCLEAR 01,[id number], Status: Pen, Time: 11:00 AM STRESS MIC, Provider: SHANICE HHVI NUCLEAR 01,[id number], Status: Pen, Time: 11:00 AM [facility] 250 DO Work Phone: Start: 02-01-2022 FUV, Provider: Jerome Michel, Status: Pen, Time: 3:30 PM FUV, Provider: Jerome Michel, Status: Pen, Time: 3:30 PM -[facility] 250 DO Work Phone: Start: 01-02-2022 FUV, Provider: Jerome Michel, Status: Pen, Time: 3:30 PM FUV, Provider: Jerome Michel, Status: Pen, Time: 3:30 PM [facility] 250 DO Work Phone: Start: 11-30-2021 FUV, Provider: Elfego Marshall, Status: Pen, Time: 10:50 AM FUV, Provider: Elfego Marshall, Status: Pen, Time: 10:50 AM -[facility] 250 DO Work Phone: Start: 08-10-2021 FUV, Provider: Elfego Marshall, Status: Pen, Time: 10:10 AM FUV, Provider: Elfego Marshall, Status: Pen, Time: 10:10 AM -[facility] 250 DO Work Phone: Start: 01-30-2020 Zoster Vaccines (1 of 2) Zoster Vaccines (1 of 2) [facility] Start: 2010 Screening for malignant neoplasm of breast Mammogram [facility] Start: 01-30-1992 DTaP/Tdap/Td Vaccines (1 - Tdap) DTaP/Tdap/Td Vaccines (1 - Tdap) [facility] Start: 1991 Screening for malignant neoplasm of cervix HPV/Cotest [facility] Start: 1989 Hepatitis B Vaccines (1 of 3 - 19+ 3-dose series) Hepatitis B Vaccines (1 of 3 - 19+ 3-dose series) [facility] Start: 1989 Urine screening for protein Diabetes: Urine Protein Screening [facility] Start: 01-30-1988 Hepatitis C screening Hepatitis C Screening [facility] Start: 01-30-1980 Diabetic foot examination Diabetes: Foot Exam [facility] Start: 01-30-1980 Glaucoma screening Diabetes: Retinopathy Screening [facility] Start: 01-30-1976 Pneumococcal Vaccine: Pediatrics (0 to 5 Years) and At-Risk Patients (6 to 64 Years) (1 of 2 - PCV) Pneumococcal Vaccine: Pediatrics (0 to 5 Years) and At-Risk Patients (6 to 64 Years) (1 of 2 - PCV) [facility] Start: 1971 MMR Vaccines (1 of 1 - Standard series) MMR Vaccines (1 of 1 - Standard series) [facility] Start: 1970 Hemoglobin A1c measurement Diabetes: Hemoglobin A1C [facility] Start: 1970 HIV screening HIV Screening [facility] Start: 1970 Lipid panel Lipid Panel [facility] Start: 1970 Screening for malignant neoplasm of colon [facility] Start: 1970 Yearly Adult Physical Yearly Adult Physical [facility] Comprehensive metabo lic 2000 panel - Serum or Plasma [facility] Patient Education Quitting Smoking [facility] Work Phone: Patient referral [facility] Work Phone: [facility] Immunizations Immunization Date Immunization Notes Care Provider Matilde pimentel 09-09-2021 Moderna COVID-19 Vaccine 100 MCG/0.5ML Intramuscular Suspension Osiel [facility] Work Phone: [facility] 250 DO Work Phone: 11-05-2020 margaret thakur don't use Jael Fournier Other [facility] Other 08-30-2020 margaret thakur don't use Jael Fournier Other [facility] Payers Date Payer Category Payer Unknown 2023 Unknown [id number] 1970 Unknown [id number] 2.16.8 [id number] 1970 Unknown [id number] 2.16.8 [id number] 1970 Unknown [id number] 2.16.8 [id number] 1970 Unknown [id number] 2.16. [id number] 1970 Unknown [id number] 2.16. [id number] 1970 Unknown [id number] 2.16.84 [id number] 1970 Unknown [id number] 2.16.84 [id number] 1970 Unknown [id number] 2.16.84 [id number] 1970 Unknown [id number] 2.16.84 [id number] 1970 Unknown [id number] 2.16.8 [id number] 1959 Self-pay [id number] 1959 Unknown [id number] Unknown [id number] 2.16.8 [id number] Unknown [id number] 2.16.8 [id number] Unknown [id number] 2.16.84 [id number] Social History Date Type Detail Facility Start: 08-20-2023 Social alcohol use Social alcohol us e [facility] 250 DO Work Phone: Comment on above: SMOKES ABOUT 1 PPD; Start: 08-20-2023 Sex Assigned At [facility] [employer] Other Start: 07-02-2022 End: 01-28-2024 Tobacco smoking status [facility] Smoker (finding) [facility] Start: 1970 Sex Assigned At Female F [facility] Start: 07-03-2022 End: 07-03-2022 Tobacco smoking status ARIS Current some day smoker [facility] Start: 08-20-2023 Tobacco smoking stat [facility] Smokes tobacco daily [facility] Work Phone: History of tobacco use Cigarette Smoker [facility] Work Phone: Start: 08-20-2023 Alcoholic beverage intake Current drinker of alcohol (finding) [facility] Work Phone: Start: 08-20-2023 Alcohol Comment social [facility] Work Phone: Start: 1970 Sex assigned at Not on file [facility] Work Phone: Start: 11-11-2023 End: 11-21-2023 Exposure to SARS-CoV-2 (event) Not sure [facility] Medical Equipment Procedure Code Equipment Code Equipment Origin al Text Equipment Identifier Dates Drug-eluting coronary artery stent, [id number] lymer-coated ()[id number] FDA Start: 07-01-2019 Femoral artery closure plug/patch, synthetic polymer ()[id number] FDA Start: 07-01-2019 Goals Date Patient Goal Desired Activity /State Functional Status Date Assessment Result Facility 07-03-2022 Functional status Patient at Baseline [facility] Work Phone: Mental Status Date Assessment Result Facility 07-03-2022 Cognitive function Cognitive Sta tus Patient at Baseline [facility] Work Phone: Clinical Notes 2019 to 05-07-2023 Note Date & Type Note Facility 05-07-2023 Evaluation note Encounter Date Diagnosis Assessment Notes Apr, Reactive depression (ICD-10 - F32.9) Apr, Gastroesophageal reflux disease without esophagitis (ICD-10 - K21.9) [facility] Other 08-11-2023 Evaluation note* Encounter Date Diagnosis [...] now. 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 Jan, Atherosclerotic hear t disease of [place] coronary artery without angina pectoris (ICD-10 - [...] and willingness to quit at each appointment. [facility] Other 07-28-2023 Evaluation note* Encounter Date Diagnosis [...] given. Patient verbalized understanding of treatment plan. [facility] Other 03-28-2023 Evaluation note* Encounter Date Diagnosis [...] understanding and is agreeable to treatment plan [facility] Other 01-23-2023 Progress note Author Savanna Orellana [facility] July 03, 2022 3:50pm Note Date/Time July 03, 2022 1 1:40am [facility] [address] [place] [address] Hospitalist Progress Note Signed with Addenda Patient: Shefali Riggs MR#: [id number] : 1970 Acct:[id number] Age/Sex: 52 / F Adm Date: 3 Loc: Room: [address] [place] [address] Type: ADM INOo Attending Dr: Savanna Orellana [...] Capsule. PO 07/03/23 08:59 60 mg DAILY KEVNA Administration Enoxaparin Sodium 40 mg 07/03/22 10:00 07/03/22 11:32 Enoxaparin 40 Mg/0.4 Ml Syringe SUBCUT 07/03/23 09:59 Not Given DAILY@10 [facility] Hydralazine HCl 10 mg 07/02/22 21:52 [...] 11 33 Signed By: <Electronically signed by Saavnna Orellana MD> 07/03/[address] [facility] Work Phone: 1(186) 405-736601-23-2023 History and physical note Author Shari Kang [facility] July 02, 2022 10:34pm Note Date/Time July 02, 2022 9 :50pm [facility] [address] [place] [address] Hospitalist H&P Signed with Addenda Patient: Shefali Riggs MR#: [id number] : 1970 Acct:[id number] Age/Sex: 52 / F Adm Date: 3 Loc: Room: [address] [place] [address] Type: ADM IN Attending Dr: Shari Kang [...] Case was discussed with telestroke team in [place] by ER and tPA was not recommended [...] negative unless noted below or in HPI [facility] Attestation Statement: The following information was validated [...] % (Auto) 30.5 % (.) 07/02/22 19:14 [place] % (Auto) 14.0 % (.) 07/02/22 19:14 Eos % (Auto) 6.4 % (.) 07/02/22 19:14 Baso % (Auto) 0.8 % (.) 07/02/22 19:14 Nucleat RBC Rel Count 0.2 /100 WBC (0-0.5) 07/02/22 19:14 Neut # (Auto) 5.2 x10E3/uL (1.8-7.7) 07/02/22 19:14 Lymph # (Auto) 3.3 x10E3/uL (1.00-4.8) 07/02/22 19:14 [place] # (Auto) 1.5 x10E3/uL (0.0-0.8) H 07/02/22 [...] pH 5.5 (5.0-9.0) 07/02/22 19:02 Ur Specific [place] 1.003 (1.001-1.030) 07/02/22 19:02 Urine Protein Negative [...] <Electronically signed by DO SHAHBAZ Kendall> 07/02/222149 [facility] Work Phone: 1(575) 280-260611-04-2022 Evaluation note* Encounter Date Diagnosis Assessment Notes [...] condition Apr, Sore throat (ICD-10 - J02.9) [facility] Other 03-04-2022 Evaluation note* Encounter Date Diagnosis [...] Patient care instructions given in writting by [facility] At Home document. Due to infection control protocols for COVID-19 virus, direct physical contact with patient was limited to only the absolute essential needed assessments. [facility] Other 08-21-2019 History and physical note Author Shari Kang [facility] July 02, 2022 10:34pm Note Date/Time July 02, 2022 9 :50pm [facility] [address] [place] [address] Hospitalist H&P Signed with Addenda Patient: Shefali Riggs MR#: [id number] : 1970 Acct:[id number] Age/Sex: 52 / F Adm Date: 3 Loc: Room: 8G2202-3 Type: ADM IN Attending Dr: Shari Kang [...] Case was discussed with telestroke team in [place] by ER and tPA was not recommended [...] negative unless noted below or in HPI [facility] Attestation Statement: The following information was validated [...] % (Auto) 30.5 % (.) 07/02/22 19:14 [place] % (Auto) 14.0 % (.) 07/02/22 19:14 Eos % (Auto) 6.4 % (.) 07/02/22 19:14 Baso % (Auto) 0.8 % (.) 07/02/22 19:14 Nucleat RBC Rel Count 0.2 /100 WBC (0-0.5) 07/02/22 19:14 Neut # (Auto) 5.2 x10E3/uL (1.8-7.7) 07/02/22 19:14 Lymph # (Auto) 3.3 x10E3/uL (1.00-4.8) 07/02/22 19:14 [place] # (Auto) 1.5 x10E3/uL (0.0-0.8) H 07/02/22 [...] pH 5.5 (5.0-9.0) 07/02/22 19:02 Ur Specific [place] 1.003 (1.001-1.030) 07/02/22 19:02 Urine Protein Negative [...] <Electronically signed by DO SHAHBAZ Kendall> 07/02/222149 [facility] Work Phone: Consult note Author Rajesh Hurd [facility] July 03, 2022 3:40pm Note Date/Time July 03, 2022 3 :40pm [facility] [address] [place] [address] Neurology Consult Note Signed Patient: Shefali Riggs MR#: [id number] : 1970 Acct:[id number] Age/Sex: 52 / F Adm Date: 3 Loc: Room: [address] [place] [address] Type: ADM INOo Attending Dr: Savanna Orellana MD Copies to: DO Osiel Ellington DO Obaydah M Daromar, MD~ HPI Consult Date: 07/03/22 Side Boss: Sam Vargas Review of Systems ENT Ears, [...] Yohannes Ascencio M.D.07/03/2022 8:02 AM Dictation Location: [place] [address] 07/02/22 19:13 IMPRESSION: No acute intracranial findings. Preliminary findings given 07/02/22 at 1930 hours Impression dictated by: Yohannes Ascencio M.D.07/03/2022 8:02 AM Dictation Location: [place] [address] Head CTA 07/02/22 19:13 IMPRESSION: No occlusion, critical stenosis or dissection of the extracranial orintracranial circulation. No intracranial aneurysm. Impression dictated by: Yohannes Ascencio M.D.07/03/2022 8:06 AM Dictation Location: [place] [address] Assessment/Plan (1) Left sided numbness: Assessment/Problem Details: [...] in her foot. She had similar symptoms [id number] but was not given a clear diagnosis. [...] above. Patient seen and examined. Documented By: Raejsh Hurd DO 07/03/22 0938 Signed By: <Electronically signed by Rajesh Hurd DO> 07/03/[address] [facility] Work Phone: Evaluation note* Diagnosis Onset Date Resolution Status Current smoker acute Left sided numbness acute Hypertension chronic [facility] Work Phone: Evaluation note* Diagnosis Onset Date Resolution Status Current smoker acute Left sided numbness acute Hyperlipidemia chronic Hypertension chronic [facility] Work Phone: Evaluation noteNo InformationNort Pe[employer] Other Evaluation note* Diagnosis Atherosclerosis of [place] coronary artery, unspecified whether angina present, unspecified whether [place] or transplanted heart documented in this encounter [facility] Work Phone: Evaluation note* Diagnosis Onset Date Resolution Status Fatigue acute Headache acute Neck pain acute Tick bite acute [facility] Work Phone: His[facility] general Narrative - Reported* Type Description Date Medical History stroke Medical History 2 heart attackS Medical History hyperlipidemia Surgical History C section 1989 & 2000 Surgical History hysterectomy 2003 Surgical History partial hysterectomy 2002 Surgical History gall bladder 2015 Surgical History Stents 2013 & 2020 Hospitalization History See Above [facility] Other Hisrzpa general Narrative - Reported* Type Description Date Medical History stroke Medical History 2 heart attackS Medical History hyperlipidemia Surgical History C section 1989 & 2000 Surgical History hysterectomy 2003 Surgical History partial hysterectomy 2002 Surgical History gall bladder 2015 Surgical History Stents cardiac 2013 & 2020 Hospitalization History See Above [facility] Other History general Narrative - Reported* Type Description Date Medical History stroke Medical History 2 heart attackS Medical History hyperlipidemia Surgical History C section 1989 & 2000 Surgical History hysterectomy 2002 Surgical History partial hysterectomy 2002 Surgical History gall bladder 2014 Surgical History Stents cardiac 2013 Hospitalization History See Above Hospitalization History TIA 07/02/19 [facility] Other Hiswqid general Narrative - Reported* Type Description Date Medical History stroke Medical History 2 heart attackS Medical History hyperlipidemia Surgical History C section 1989 & 2000 Surgical History hysterectomy 2002 Surgical History partial hysterectomy 2002 Surgical History gall bladder 2014 Surgical History Stents cardiac 2013 Hospitalization History See Above Hospitalization History TIA 07/02/19 Hospitalization History SVT 12/2021 TrunqShow Other History of Present illness Narrative* The [...] medication regimen. She denies medication side effects. -[facility] [address] 250 DO Work Phone: History of Present [...] medication regimen. She denies medication side effects. [facility] 600 DO Work Phone: History of Present [...] medication regimen. She denies medication side effects. [facility] Work Phone: Hospital Discharge instructions Additional Instructions [...] clinic [facility] to [facility] Progress note Author Savanna Orellana [facility] July 03, 2022 11:40am Note Date/Time July 03, 2022 1 1:40am [facility] [address] [place] [address] Hospitalist Progress Note Signed Patient: Shefali Riggs MR#: [id number] : 1970 Acct:[id number] Age/Sex: 52 / F Adm Date: 3 Loc: Room: [address] [place] [address] Type: ADM INOo Attending Dr: Savanna Orellana [...] signed by Savanna Orellana MD> 07/03/22 1140 [facility] Work Phone: Summary Purpose Family History Unknown [...] t Referred To Contact Diagnoses Atherosclerosis of ute mountain coronary artery, unspecified whether angina present, unspecified whether ute mountain or transplanted heart Procedures Stress Test Only Elfego Marshall DO [address] [facility] [address] [place] [address] Referral ID Status Reason Start Date Expiration Date Visits Re quested Visits Authorized [id number] Closed 02/26/2023 08/25/2023 1 1 Additional Source Comments INFORMATION SOURCE (unrecogn ized section and content) DATE CREATED AUTHOR 07/05/2018 [facility] DATE CREATED AUTHOR AUTHOR'S ORGANIZ ATION 02/04/2022 [employer] DATE CREATED AUTHOR AUTHOR'S ORGANIZ ATION 03/07/2022 [facility] DATE CREATED AUTHOR AUTHOR'S ORGANIZ ATION 07/04/2022 [facility] DATE CREATED AUTHOR AUTHOR'S ORGANIZ ATION 09/09/2022 [facility] DATE CREATED AUTHOR AUTHOR'S ORGANIZ ATION 10/13/2022 [facility] DATE CREATED AUTHOR AUTHOR'S ORGANIZ ATION 11/17/2022 [facility] DATE CREATED AUTHOR AUTHOR'S ORGANIZ ATION 10/17/2023 [facility] EPIC DATE CREATED AUTHOR AUTHOR'S ORGANIZ ATION 12/29/2023 [facility] REASON FOR VISIT (unrecogniz ed section and content) Specialty Diagnoses / Procedures Referred By Contac t Referred To Contact Diagnoses Atherosclerosis of ute mountain coronary artery, unspecified whether angina present, unspecified whether ute mountain or transplanted heart Procedures Stress Test Only Elfego Marshall DO [facility] [facility] [address] [place] [address] Referral ID Status Reason Start Date Expiration Date Visits Re quested Visits Authorized [id number] Closed 02/26/2023 08/25/2023 1 1 Care Teams [...] Active Kimberley Rodríguez APRN Attending Provider 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 [facility]. provides no warranty or guarantee of the accuracy or completeness of information in this document.
[2024-01-29 07:55] LABS: Chol HDL Ratio 4.4; Cholesterol 189 mg/dL (<=200); HDL Cholesterol 43 mg/dL (40-60); Triglycerides 367 mg/dL (<=150); VLDL CHOLESTEROL 73.4 mg/dL
== END 2024-01-29 06:55 | disposition home or self-care (01) ==
LOC: LAB 06:55
PROVIDERS: PCP Nurse Practitioner Family; Visit Provider Internal Medicine Cardiovascular Disease
DX: I25.10 Atherosclerotic heart disease of native coronary artery without angina pectoris (principal); E78.5 Hyperlipidemia, unspecified
CPT/HCPCS: 36415; 80061

== ENCOUNTER 2024-04-03 14:52 | Outpatient (OUT) | payer BC, SELFPAY ==
--- NOTE | 2024-04-03 14:55 | MM_ITS ---
Patient Name: NOEL MENDOZA MR#: [id number] : 1970 Exam Date: 04/03/2024 Ordering Doctor: DR Eduardo Huitron . RADIOLOGY REPORT PROCEDURE: MM TOMOSYNTHESIS SCREENING BI COMPARISON: MM TOMOSYNTHESIS SCREENING BI, 03/28/2023. MG MAMM SCREEN 3D SAUL CAD, 09/08/2021. MG MAMM SCREEN SAUL W CAD, 06/10/2020. MG MAMM SAUL SCRN W CAD DIG, 08/06/2013. INDICATIONS: Screening Calculator Name NCI Breast Cancer Risk Assessment Tool 5 Year Breast Cancer Risk 0.90% Lifetime Breast Cancer Risk 6.50% Personal Breast Cancer No Personal Ovarian Cancer No Treatments None Family Cancers Father with prostate cancer at age 70; Brother with colon cancer at age 50. LOCATION: [facility] BREAST COMPOSITION: The breasts are heterogeneously dense,which may obscure small masses. FINDINGS: DIAGNOSTIC CATEGORY 1--NEGATIVE. RIGHT BREAST: No significant suspicious finding. No significant change has occurred. LEFT BREAST: No significant suspicious finding. No significant change has occurred. RECOMMENDATIONS: ROUTINE MAMMOGRAM AND CLINICAL EVALUATION IN 12 MONTHS. PLEASE NOTE: A NORMAL MAMMOGRAM DOES NOT EXCLUDE THE POSSIBILITY OF BREAST CANCER. A CLINICALLY SUSPICIOUS PALPABLE LUMP SHOULD BE BIOPSIED. Dictated by: Valente Kimble M.D. on 04/06/2024 at 19:38 Approved by: Valente Kimble M.D. on 04/06/2024 at 19:40
== END 2024-04-03 14:53 | disposition home or self-care (01) ==
LOC: MAMMO 14:52
PROVIDERS: PCP Nurse Practitioner Family; Visit Provider Obstetrics & Gynecology
DX: Z12.31 Encounter for screening mammogram for malignant neoplasm of breast (principal); Z80.42 Family history of malignant neoplasm of prostate; Z80.0 Family history of malignant neoplasm of digestive organs
CPT/HCPCS: 77063; 77067

== ENCOUNTER 2025-04-09 15:21 | Outpatient (OUT) | payer BC, SELFPAY ==
--- OUTSIDE RECORDS SUMMARY | 2025-04-09 15:25 | XMS_ITS | Clinical Summary ---
Author Organization [facility] Address [address] [place] [address] Care Team Providers Care Aerobics Instructor Name Role Phone Cyndee Moseley DISK SHARPENER Unavailable [phone] Kilo Beasley DO Unavailable [phone] Cyndee Moseley DISK SHARPENER Primary Care Provider Allergies Active AllergyReactionsCriticalityNoted DateCommentsPenicillin GUnknown 5690HpbuidapjftHjqiwNch91/03/1466SgvhfisSwclpyuStz53/11/2024 Medications MedicationSigDispense QuantityRefillsLast FilledStart DateEnd DateStatus ASPIRIN 81 MG chewable tablet Active famotidine (Pepcid) 20 MG tablet 1 (one) time each day at the same timeActive cholecalciferol (Vitamin D-3) 50 MCG (1999 UT) tablet 1 (one) time each day at the same timeActive spironolactone (Aldactone) 2 mg/mL solution Active metoprolol tartrate (Lopressor) 25 MG tablet Active Multiple Vitamin (multivitamin) capsule Active Elastic Bandages & Supports (Wrist Splint/Cock-Up/Left 2XSm) misc G56.00Active Respiratory Therapy Supplies (CareTouch CPAP Mask Wipes) misc Auto CPAP Auto CPAP minimum 5cmH2O maximum 04miS7S dx: G47.30 Q sleep and nap CPAP mask and supplies DX: OSAActive Repatha 140 MG/ML injection Inject 140 mg under the skin09/03/2023ctive DULoxetine (Cymbalta) [address] capsule Take 60 mg by mouth07/16/2023ctive clopidogrel (Plavix) 75 MG tablet Indications:TIA (transient ischemic attack)TAKE 1 TABLET DAILY 90 tablet ctive buPROPion XL (Wellbutrin XL) 150 MG 24 hr tablet Take 150 mg by mouth in the morning.5Active pantoprazole (ProtoNix) 40 MG EC tablet 5Active Active Problems ProblemNoted DateDiagnosed DateParesthesia of foot, ckcldludu25/07/2024Snoring 10/16/2023omplicated uqkdpskf39/06/2024rm paresthesia, left10/15/2023 Ayhzhaxfuzgk09/06/2024aresthesia of right arm10/15/2023arpal tunnel syndrome, left10/15/2023OSA (obstructive sleep apnea)10/15/2023LMD (periodic limb movement disorder)10/15/2023Transient ischemic ngekvb0210/30/2013therosclerosis of coronary nbdvmz2109/22/2013Pure kltuoerogvkdesjchbwb17/14/2014 Resolved Problems ProblemNoted DateDiagnosed DateResolved DateBiliary fxhosavwfi01/16/2025 08/24/2024 Overview (08/24/2024): -HIDA=0% EF August 2013-Abnormally low. -SBFT 11/2013-normal motility but a stricture proximal to the GEJ and non passage of a pill. Startedon Pepcid. -EGD-01/2014-Mild Schatzki ring. Dilated. LA Grade A reflux esophagitis. Biopsied. Normal stomach. Normal examined duodenum.Recommendation. Path: Squamous mucosa with mild reactive epithelial change.Columnar mucosa with chronic and focal acute inflammation. 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 She is now struggling with issues more related to her IBS-constipation predominant pattern.?? In regard to her constipation issues I am actually going to have her discontinue Linzess for right now as I think that the timing of this medication and her symptoms correlate with some of the side effects possibly seen with this medication specifically, abdominal distention.?? I am going to restart her on MiraLAX which she has done quite well in the past.?? I will have her take 17 g 1-2 caps once daily and update me in 4 weeks. ?? In the meantime, if her bowel pattern improves but she is still having troubles with incomplete evacuation, we will pursue anorectal manometry to rule out any kind of pelvic floor dysfunction although she has never really had any problems with this prior to taking Linzess. ?? Additionally, she needs treatment finally H. pylori infection.?? She has a penicillin allergy.?? I am going to give her Flagyl and clarithromycin course.?? She can take Nexium or omeprazole along with this and we discussed administration as well as timing of holding her proton pump inhibitor down the road so that she can collect a stool specimen to document eradication. ?? Lastly, she has some nonspecific symptoms of globus.?? She had an EGD in January 2014 showing a stricture of the gastroesophageal junction, Schatzki ring that was dilated as well as grade A esophagitis.?? I am going to have her repeat an EGD to rule out a recurrence of any kind of web or ring as well as to make sure that no worsening esophagitis/gastritis-related or chronic H. pylori infection.?? Globus maybe just that of nonspecific globus.?? She may benefit from long-term PPI in the future. (DOC:[id number]) ?? Patient Instructions: 1: Treat H-Pylori since Plavix course complete. Take 20 mg twice daily, 30 minutes prior to meals x14 days then reduce to once daily x 30 days. Then hold x 14 days and collect stool specimen and submit to lab to document that it is eradicated. 2:?? Repeat EGD for Stricture of GEJ seen on 11/2013 SBFT, Schatzki ring- dilated in the past, GradeA Esophagitis on 01/20154 EGD 3:?? For now discontinue Linzess. Restart Miralax 17 grams 1-2 doses daily and call with response in 4 weeks. If sensation of incomplete evacuation persists we will do manometry testV 05/2015 EGD-- Z-line irregular. Biopsied. Erythematous mucosa in the antrum. Biopsied.Normal examined duodenum. 05/31/15 path=positive h pylori h pylori breath test= negative Early xavorkw68Gastroesophageal bqpemx76ody mass index (BMI) 29.0-29.9, adultDiabetes mellitus type II, non insulin efdyurvmv12Major depressive disorder, single episode, mildhest wycbsagv50urrent every day jzvyou67EdemaPericarditis (HHS-HCC) PSVT (paroxysmal supraventricular tachycardia)03/23/2023 08/24/2024Status post ndnwarqmehw57H. pylori infection bdominal pain, right upper Myocardial dxhkwpcyku88 Overview (08/24/2024): PTCA Encounters DateTypeDepartmentCare TtkrBdeaixqnjvp78/30/2025 3:45 PM EDTOffice Visit [facility] [address] [place] [address] Kilo Beasley DO ALMA (obstructive sleep apnea) (Primary Dx)01/07/2025amboo flowsheet [facility] [address] [place] [address] Kilo Beasley DO 01/07/2025Travelfrom Last 3 Months Family History Medical HistoryRelationNameCommentsObesityFatherAlzheimer's diseaseMaternal GrandfatherMental illnessMaternal GrandfatherHeart diseaseMaternal Grandmother HypertensionMaternal GrandmotherStrokeMaternal GrandmotherHypertensionMother ObesityMotherAlzheimer's diseaseOtherCancerOtherDiabetesOtherHeart diseaseOther HyperlipidemiaOtherHypertensionOtherStrokeOtherCancerPaternal Grandfather RelationNameStatusCommentsFatherAliveMaternal GrandfatherDeceasedMaternal GrandmotherDeceasedMotherAliveOtherPaternal GrandfatherDeceased Social History Tobacco UseTypesPacks/DayYears UsedDateSmoking Tobacco: FormerCigarettes Tobacco Cessation:Counseling Given: Not Answered Alcohol UseStandard Drinks/WeekCommentsYes2 (1 standard drink = 0.6 oz pure alcohol)Caffeine: 1-2 cups/day coffeeAUDIT-CAnswerDate RecordedQ1: How often do you have a drink containing alcohol?2-3 times a week10/15/2023Q2: How many drinks containing alcohol do you have on a typical day when you are drinking?3 or Q3: How often do you have six or more drinks on one occasion?Less than qlmjlep3410/15/2023CommentsUnknownSex and Gender InformationValueDate RecordedSex Assigned at BirthNot on fileLegal MwtJrjlew72/15/2023 7:16 PM EDT Gender IdentityNot on fileSexual OrientationNot on file Last Filed Vital Signs Vital SignReadingTime TakenCommentsBlood Bwkclssn668/7003 2:48 PM EDT Eabvj160408/28/2024 2:48 PM EDTTemperature--Respiratory Rate--Oxygen Pcwcmqwspq48% 08/28/2024 2:48 PM EDTInhaled Oxygen Concentration--Dqwael08.1 kg (170 lb) 01/07/2025 3:53 PM JAABhmoha206.6 cm (5' 4 )01/07/2025 3:53 PM EDTBody Mass Index29.18001/07/2025 3:53 PM EDT Plan of Treatment Health MaintenanceDue DateLast DoneCommentsCT Xzkflkqmbcqn1970FIT-DNA 1970FIT1970FOBT1970 4733Dpmspfhpbonma1970Colonoscopy 08/25/, 02/02/2015Colorectal Cancer Hcoplssha16/25/2025Influenza Vaccine (#1)02/09/20255742Fcvxwsbiz30, 03/29/2023ervical Cancer Ejsnrozwm82/17/2028HPV/Atbmny6203/27/2028Pap Smear, 04/19/2022 Procedures Procedure NamePriorityDate/TimeAssociated DiagnosisCommentsMM TOMOSYNTHESIS SCREENING BI04/06/2024 7:41 PM EDT PAP MYTSTUameuts46/17/2023 12:00 AM EDTfrom Last 3 Months or Most Recently Relevant to Health Maintenance Results * MM TOMOSYNTHESIS SCREENING BI (04/06/2024 7:41 PM EDT)Anatomical Region LateralityModalityOtherSpecimen (Source)Anatomical Location / Laterality Collection Method / VolumeCollection TimeReceived Time04/06/2024 7:41 PM EDT Narrative 04/06/2024 7:42 PM EDT [facility] ?[address] ? [place] [address] ? Mammography Report ? Signed ? Patient: SHEFALI MENDOZA ?MR#: [id number] ?? : 1970 ?Acct:[id number] ?? Age/Sex: 54 / F ?ADM Date: 04/03/24 ?? Loc: MAMMO ? Attending Dr: Eduardo uHitron D.O. ? Ordering Physician: Eduardo Huitron D.O. ?Results: ? Date of Service: 04/03/24 ?Follow Up: ? Procedure(s): MM tomosynthesis screening BI ?? Accession Number(s): [id number] ? cc: Eduardo Huitron D.O.; CYNDEE MOSELEY ? Patient Name: ? SHEFALI MENDOZA ? MR#: [id number] ? : 1970 ? Exam Date: 04/03/2024 ?? Ordering Doctor: DR Eduardo Huitron . ? RADIOLOGY REPORT ? PROCEDURE: ? MM TOMOSYNTHESIS SCREENING BI ? COMPARISON: ? MM TOMOSYNTHESIS SCREENING BI, 03/28/2023. ??MG MAMM SCREEN 3D ?? SAUL CAD, 09/08/2021. ??MG MAMM SCREEN SAUL W CAD, 06/10/2020. ??MG MAMM SAUL SCRN W ?? CAD DIG, 08/06/2013. ? INDICATIONS: ? Screening ? Calculator Name ? NCI Breast Cancer Risk Assessment Tool ?? 5 Year Breast Cancer Risk ? 0.90% ?? Lifetime Breast Cancer Risk ? 6.50% ?? Personal Breast Cancer ?No ?? Personal Ovarian Cancer ? No ?? Treatments ? None ?? Family Cancers ? Father with prostate cancer at age 70; Brother with colon ?? cancer at age 50. ? LOCATION: ? [facility] ? BREAST COMPOSITION: ? The breasts are heterogeneously dense,which may ?? obscure small masses. ? FINDINGS: ? DIAGNOSTIC CATEGORY 1--NEGATIVE. ? RIGHT BREAST: ??No significant suspicious finding. ??No significant change has ?? occurred. ? LEFT BREAST: ??No significant suspicious finding. ??No significant change has ?? occurred. ? RECOMMENDATIONS: ? ROUTINE MAMMOGRAM AND CLINICAL EVALUATION IN 12 MONTHS. ? PLEASE NOTE: ??A NORMAL MAMMOGRAM DOES NOT EXCLUDE THE POSSIBILITY OF BREAST ?? CANCER. ??A CLINICALLY SUSPICIOUS PALPABLE LUMP SHOULD BE BIOPSIED. ? Dictated by: Valente Kimble M.D. on 04/06/2024 at 19:38 ? Approved by: Valente Kimble M.D. on 04/06/2024 at 19:40 ? Dictated By: ?Valente Kimble M.D. ? Signed By: ?04/06/241941 ? DD/ 40 ? TD/TT: ? Toe Lining Closer: Procedure Note Radiology, Radiologist, MD - 04/06/2024 [place] [address] Mammography Report Signed Patient: SHEFALI MENDOZA RMR#: [id number] : 1970Acct:[id number] Age/Sex: 54 / FADM Date: 04/03/24 Loc: MAMMO Attending Dr: Eduardo Huitron D.O. Ordering Physician: Eduardo Huitron D.O.Results: Date of Service: 04/03/24Follow Up: Procedure(s): MM tomosynthesis screening BI Accession Number(s): [id number] cc: Eduardo Huitron D.O.; CYNDEE MOSELEY Patient Name: SHEFALI MENDOZA MR#: [id number] : 1970 Exam Date: 04/03/2024 Ordering Doctor: DR Eduardo Huitron . RADIOLOGY REPORT PROCEDURE: MM TOMOSYNTHESIS SCREENING BI COMPARISON: MM TOMOSYNTHESIS SCREENING BI, 03/28/2023. MG MAMM ZIALKO4G SAUL CAD, 09/08/2021. MG MAMM SCREEN SAUL W CAD, 06/10/2020. MG MAMM BILSCRN W CAD DIG, 08/06/2013. INDICATIONS: Screening Calculator Name NCI Breast Cancer Risk Assessment Tool 5 Year Breast Cancer Risk 0.90% Lifetime Breast Cancer Risk 6.50% Personal Breast Cancer No Personal Ovarian Cancer No Treatments None Family Cancers Father with prostate cancer at age 70; Brother withcolon cancer at age 50. LOCATION: [facility] BREAST COMPOSITION: The breasts are heterogeneously dense,which may obscure small masses. FINDINGS: DIAGNOSTIC CATEGORY 1--NEGATIVE. RIGHT BREAST: No significant suspicious finding. No significant changehas occurred. LEFT BREAST: No significant suspicious finding. No significant changehas occurred. RECOMMENDATIONS: ROUTINE MAMMOGRAM AND CLINICAL EVALUATION IN 12 MONTHS. PLEASE NOTE: A NORMAL MAMMOGRAM DOES NOT EXCLUDE THE POSSIBILITY OFBREAST CANCER. A CLINICALLY SUSPICIOUS PALPABLE LUMP SHOULD BE BIOPSIED. Dictated by: Valente Kimble M.D. on 04/06/2024 at 19:38 Approved by: Valente Kimble M.D. on 04/06/2024 at 19:40 Dictated By: Valente Kimble M.D. Signed By:04/06/241941 DD/ 40 TD/TT: Toe Lining Closer: Authorizing ProviderResult TypeResult StatusCorey Elana DOCLINISYNC IMAGINGFinal Result * Pap Smear (03/27/2023 12:00 AM EDT)Specimen (Source)Anatomical Location / LateralityCollection Method / VolumeCollection TimeReceived TimeSwabCervical swab / Unknown Narrative Authorizing ProviderResult TypeResult StatusAmy [place] PAL CYTOLOGY ORDERABLES Final ResultPerforming OrganizationAddressCity/State/ZIP CodePhone Number EXTERNAL LAB from Last 3 Months or Most Recently Relevant to Health Maintenance Insurance Care Teams Team MemberRelationshipSpecialtyStart DateEnd Date Cyndee Moseley NP [facility] Referrals ONLY PCP - GeneralFamily Medicine01/07/25 Cyndee Moseley NP [address] [place] [address] Primary Care ProviderFami Medicine08/21/24 Kilo Beasley, [address] [place] [address] Otolaryngology09/03/24
--- OUTSIDE RECORDS SUMMARY | 2025-04-09 15:25 | XMS_ITS | Clinical Summary ---
Author Organization [facility] Address [address] [place] [address] Phone Care Team Providers Care Gis Web Developer Name Role Phone Karmne Tovar APRN-SLIVER MACHINE OPERATOR Primary Care Pro vider Allergies Active AllergyReactionsCriticalityNoted DateCommentsPenicillinsHivesLow 11/11/20138659Qdmolhw-Emx-Qgk Reductase SvnaewbwkmXemvsyoOgn48/11/2024 Medications MedicationSigDispense QuantityRefillsLast FilledStart DateEnd DateStatus DULoxetine (Cymbalta) [address] capsule Take 1 capsule (30 mg) by mouth once daily. Do not crush or chew.Active pantoprazole (ProtoNix) 20 mg EC tablet Take 1 tablet (20 mg) by mouth once daily in the morning. Take before meals. Do not crush, chew, orsplit.Active clopidogrel (Plavix) 75 mg tablet Take 1 tablet (75 mg) by mouth once daily.Active evolocumab (Repatha SureClick) 140 mg/mL injection Indications:Atherosclerosis of robinson coronary artery of robinson heart without angina pectoris,Hyperlipidemia, unspecified hyperlipidemia typeInject 1 mL (140 mg) under the skin every 14 (fourteen) days. 6 mL ctive aspirin 81 mg EC tablet Indications:Atherosclerosis of robinson coronary artery of robinson heart without angina pectorisTake 1 tablet (81 mg) by mouth once daily. 90 tablet ctive spironolactone (Aldactone) 100 mg tablet Indications:Atherosclerosis of robinson coronary artery of robinson heart without angina pectorisTAKE 1 TABLET DAILY 90 tablet 5Active metoprolol tartrate (Lopressor) 25 mg tablet Indications:Atherosclerosis of robinson coronary artery of robinson heart without angina pectorisTAKE 1 TABLET TWICE A DAY 180 tablet tive metoprolol tartrate (Lopressor) 25 mg tablet Indications:Atherosclerosis of robinson coronary artery of robinson heart without angina pectorisTake 1 tablet (25 mg) by mouth 2 times a day. 180 tablet /Discontinued(Reorder) spironolactone (Aldactone) 100 mg tablet Indications:Atherosclerosis of robinson coronary artery of robinson heart without angina pectorisTake 1 tablet (100 mg) by mouth once daily. 90 tablet Discontinued(Reorder) aspirin 81 mg EC tablet Indications:Atherosclerosis of robinson coronary artery of robinson heart without angina pectorisTake 1 tablet (81 mg) by mouth once daily. 90 tablet Discontinued(Reorder) evolocumab (Repatha SureClick) 140 mg/mL injection Indications:Atherosclerosis of robinson coronary artery of robinson heart without angina pectoris,Hyperlipidemia, unspecified hyperlipidemia typeInject 1 mL (140 mg) under the skin every 14 (fourteen) days. 6 mL Discontinued(Reorder) spironolactone (Aldactone) 100 mg tablet Indications:Atherosclerosis of robinson coronary artery of robinson heart without angina pectorisTake 1 tablet (100 mg) by mouth once daily. 90 tablet Discontinued metoprolol tartrate (Lopressor) 25 mg tablet Indications:Atherosclerosis of robinson coronary artery of robinson heart without angina pectorisTake 1 tablet (25 mg) by mouth 2 times a day. 180 tablet /Discontinued Active Problems ProblemNoted DateDiagnosed DateBody mass index (BMI) 29.0-29.9, adult04/01/2024 Diabetes mellitus type II, non insulin netafsnxg29/11/2024Major depressive disorder, single episode, mild08/20/2023therosclerosis of coronary artery of robinson heart without angina /13/2023hest uesnrxni97/13/2023urrent every day ncsaon1303/23/20230556Qkzig95/13/2569Gggtfob20/13/2023Hyperlipidemia 03/23/2023Myocardial siwpsagrez26/13/2722Tuerfswppapy28/13/2023SVT (paroxysmal supraventricular tachycardia)03/23/2023Status post ogdgpmpevtm52/13/2023TIA (transient ischemic attack)03/23/2023 Encounters DateTypeDepartmentCare QjpkNweqlndwmfp86/23/2025Refill [address] [place] [address] Elfego Mclean, Atherosclerosis of robinson coronary artery of robinson heart without angina /20/2025Telephone [address] [facility] [address] [place] [address] Kathy Churchill LPN Lab Vgynjp9203/30/2025Refill [facility] [address] [place] [address] [facility] [address] [place] [address] Kathy Churchill LPN Atherosclerosis of robinson coronary artery of robinson heart without angina pectoris; Hyperlipidemia, unspecified hyperlipidemia typefrom Last 3 Months Family History Medical HistoryRelationNameCommentsNo Known ProblemsBrotherNo Known Problems FatherNo Known ProblemsMotherNo Known ProblemsSisterRelationNameStatusComments BrotherFatherMotherSister Social History Tobacco UseTypesPacks/DayYears UsedDateSmoking Tobacco: Every DayCigarettes Smokeless Tobacco: Never Tobacco Cessation:Ready to Q uit: No; Counseling Given: Yes Alcohol UseStandard Drinks/WeekCommentsYes0 (1 standard drink = 0.6 oz pure alcohol)socialCommentsUnknownSex and Gender InformationValueDate RecordedSex Assigned at BirthNot on fileLegal RjwStmlsg38/25/2022 9:37 PM EST Gender IdentityNot on fileSexual OrientationNot on file Last Filed Vital Signs Vital SignReadingTime TakenCommentsBlood Ikenlllb655/7804/01/2024 12:12 PM EDT Kfmxq099604/01/2024 12:12 PM EDTTemperature--Respiratory Rate--Oxygen Saturation-- Inhaled Oxygen Concentration--Xgknez83.1 kg (170 lb)04/01/2024 12:12 PM EDT Hhrtnz886.6 cm (5' 4 )04/01/2024 12:12 PM EDTBody Mass Index29.181 12:12 PM EDT Plan of Treatment DateTypeDepartmentCare Team (Latest Contact Info)Vxjewuoxcmv60/11/2025 3:30 PM ESTOffice Visit [facility] [address] [facility] [address] [place] [phone] Elfego Mclean, [address] [facility] [address] [place] [address] Health MaintenanceDue DateLast DoneCommentsCT Pdgibqgpmook1970Diabetes: Hemoglobin A1C1970Diabetes: Urine Protein Hzlbuijgv1970FIT-DNA (Cologuard)1970FIT1970HIV Jeakarcry1970Lipid Panel1970 Obvsgcgpcsmpm1970Yearly Adult Xeuireua1970MMR Vaccines (1 of 1 - Standard series)1971Diabetes: Retinopathy Cvqxixtxb76/21/1980Hepatitis C Qltfygmuj70/21/1988Hepatitis B Vaccines (1 of 3 - 19+ 3-dose series)1989 Pneumococcal Vaccine (1 of 2 - PCV)1989HPV/Ibwszm7301/29/1991DTaP/Tdap/Td Vaccines (1 - Tdap)01/30/19926133Ygrsncrdl98/21/2010Zoster Vaccines (1 of 2) 01/30/2020Influenza Vaccine (#1)9387Uyeilllkcmx95/25/202508/ Colorectal Cancer Gduschzkw68/25/2025COVID-19 Vaccine ( season) 504/06/2021, 11/05/2020, 1Cervical Cancer Mmuwgtfbj15/09/2025 Pap SmearHIB VaccinesAged OutNo longer eligible based on patient's age to complete this topicHPV VaccinesAged OutNo longer eligible based on patient's age to complete this topicHepatitis A VaccinesAged OutNo longer eligible based on patient's age to complete this topicIPV VaccinesAged OutNo longer eligible based on patient's age to complete this topicMeningococcal VaccineAged OutNo longer eligible based on patient's age to complete this topic Rotavirus VaccinesAged OutNo longer eligible based on patient's age to complete this topic Insurance * Guarantor: Shefali TillmanAccount TypeRelation to PatientDate of BirthPhone Billing AddressPersonal/AcctmxBvst1970 [address] [address] Care Teams Team MemberRelationshipSpecialtyStart DateEnd Date Karmen Tovar, SHERMAN-SLIVER MACHINE OPERATOR [address] [place] [address] PCP - GeneralFamily Rxukdtqp64/22/24
--- OUTSIDE RECORDS SUMMARY | 2025-04-09 15:25 | XMS_ITS | Encounter Summary ---
Author Organization [facility] Address [address] [place] [address] Care Team Providers Care Security Systems Sales Representative Name Role Phone Angela Vásquez DO Unavailable [phone] Cydnee Moseley CNC MACHINE OPERATOR Unavailable Destiny Anders CNC MACHINE OPERATOR Unavailable [phone] Kilo Morfin DO Unavailable [phone] Kilo Beasley DO Unavailable [phone] Cyndee Moseley CNC MACHINE OPERATOR Primary Care Provider Encounter Details DateTypeDepartmentCare Team (Latest Contact Info)Uvzuqxdglau54/27/2024Clinisync Result Encounter [facility] Unsolicited Eduardo Huitron, DO [address] [facility] [address] [place] [address] Social History Tobacco UseTypesPacks/DayYears UsedDateSmoking Tobacco: FormerCigarettesAlcohol UseStandard Drinks/WeekCommentsYes2 (1 standard drink = 0.6 oz pure alcohol) Caffeine: 1-2 cups/day coffeeAUDIT-CAnswerDate RecordedQ1: How often do you have a drink containing alcohol?2-3 times a week10/15/2023Q2: How many drinks containing alcohol do you have on a typical day when you are drinking?3 or 4 10/15/2023Q3: How often do you have six or more drinks on one occasion?Less than vnfgkdu76/06/2024CommentsUnknownSex and Gender InformationValueDate RecordedSex Assigned at BirthNot on fileLegal VqqRcztup58/15/2023 7:16 PM EDT Gender IdentityNot on fileSexual OrientationNot on filedocumented as of this encounter Plan of Treatment Not on file documented as of this encounter Procedures Procedure NamePriorityDate/TimeAssociated DiagnosisCommentsMM TOMOSYNTHESIS SCREENING BI04/06/2024 7:41 PM EDT documented in this encounter Results * MM TOMOSYNTHESIS SCREENING BI (04/06/2024 7:41 PM EDT)Anatomical Region LateralityModalityOtherSpecimen (Source)Anatomical Location / Laterality Collection Method / VolumeCollection TimeReceived Time04/06/2024 7:41 PM EDT Narrative 04/06/2024 7:42 PM EDT [facility] ?[address] ? [place], [facility] ? Mammography Report ? Signed ? Patient: SHEFALI MENDOZA ?MR#: [id number] ?? : 1970 ?Acct:[id number] ?? Age/Sex: 54 / F ?ADM Date: 04/03/ ?? Loc: MAMMO ? Attending Dr: Eduardo Huitron D.O. ? Ordering Physician: Eduardo Huitron D.O. ?Results: ? Date of Service: 04/03/ ?Follow Up: ? Procedure(s): MM tomosynthesis screening BI ?? Accession Number(s): [id number] ? cc: Eduardo Huitron D.O.; CYNDEE MOSELEY ? Patient Name: ? SHEFALI MENDOZA ? MR#: [id number] ? : 1970 ? Exam Date: 04/03/2024 [...] at age 50. ? LOCATION: ? [facility] ? BREAST COMPOSITION: ? The breasts are [...] By: ?Valente Kimble M.D. ? Signed By: ?04/06/24 1942 ? DD/ 1941 ? TD/TT: ? Staff Scientist: Procedure Note Radiology, Radiologist, MD - 04/06/2024 [place] [address] Mammography Report Signed Patient: SHEFALI MENDOZA RMR#: [id number] : 1970Acct:[id number] Age/Sex: 54 / FADM Date: 04/03/24 Loc: MAMMO Attending Dr: Eduardo Huitron D.O. Ordering Physician: Eduardo Huitron D.O.Results: Date of Service: 04/03/24Follow Up: Procedure(s): MM tomosynthesis screening BI Accession Number(s): [id number] cc: Eduardo Huitron D.O.; CYNDEE MOSELEY Patient Name: SHEFALI MENDOZA MR#: [id number] : 1970 Exam Date: 04/03/2024 Ordering Doctor: DR Eduardo Huitron . RADIOLOGY REPORT PROCEDURE: MM TOMOSYNTHESIS SCREENING BI COMPARISON: MM TOMOSYNTHESIS SCREENING BI, 03/28/2023. MG MAMM CVAIHY0I SAUL CAD, 09/08/2021. MG MAMM SCREEN SAUL [...] withcolon cancer at age 50. LOCATION: [facility] BREAST COMPOSITION: The breasts are heterogeneously dense,which [...] Kimble M.D. Signed By:04/06/241941 DD/ 40 TD/TT: Staff Scientist: Authorizing ProviderResult TypeResult StatusCorey Elana DOCLINISYNC IMAGINGFinal Result documented in this encounter Visit Diagnoses Not on filedocumented in this encounter Care Teams Team MemberRelationshipSpecialtyStart DateEnd Date Cyndee Moseley NP FPG Referrals ONLY PCP - GeneralFamily Medicine01/07/25 Angela Vásquez DO [address] [place] [address] Referring PhysicianNeurolog/ Cyndee Moseley NP [address] [place] [address] [place] [address] Primary Care ProviderFamily Medicine08/21/24 Destiny Anders NP [address] [place] [address] [place] [address] Nurse [place]ition[place] [address] [place], [place] [address], [place] [address] Referring PhysicianInternal Medicine Kilo Beasley DO [address] [place] [address] Otolaryngology09/03/24documented as of this encounter
--- OUTSIDE RECORDS SUMMARY | 2025-04-09 15:25 | XMS_ITS | Encounter Summary ---
Author Organization [facility] Address [address] [place] [address] Phone Care Team Providers Care Treatment Supervisor Name Role Phone Karmen Tovar APRN-JAVA SOFTWARE Primary Care Pro vider Reason for Referral * Medications - ClosedSpecialtyDiagnoses / ProceduresReferred By ContactReferred To Contact Diagnoses Atherosclerosis of [place] coronary artery of [place] heart without angina pectoris Hyperlipidemia, unspecified hyperlipidemia type Elfego Mclean DO [address] [place] [address] 2, [facility] [address] [place] [address] Phone: tel: fax: Referral IDStatusReasonStart DateExpiration DateVisits RequestedVisits [id number] Reason for Visit * ReasonOnset DateCommentsMed Gwxvyb4203/30/2025 Encounter Details DateTypeDepartmentCare Team (Latest Contact Info)Gsrezxbqcpf62/20/2025Refill [address] [address] Kathy Churchill LPN Atherosclerosis of [place] coronary artery of em[place] heart without angina pectoris; Hyperlipidemia, unspecified hyperlipidemia type Social History Tobacco UseTypesPacks/DayYears UsedDateSmoking Tobacco: Every DayCigarettes Smokeless Tobacco: NeverAlcohol UseStandard Drinks/WeekCommentsYes0 (1 standard drink = 0.6 oz pure alcohol)socialCommentsUnknownSex and Gender InformationValueDate RecordedSex Assigned at BirthNot on fileLegal SexFemale 05/05/2022 9:37 PM ESTGender IdentityNot on fileSexual OrientationNot on file documented as of this encounter Plan of Treatment DateTypeDepartmentCare Team (Latest Contact Info)Cyhxitfsiwc93/11/2025 3:30 PM ESTOffice Visit [facility] [address] [facility] [address] [place] [address] Elfego Mclean, [address] [facility] [address] [place], [place] [address] documented as of this encounter Visit Diagnoses Diagnosis Atherosclerosis of [place] coronary artery of em[place] heart without angina pectoris Hyperlipidemia, unspecified hyperlipidemia type documented in this encounter Care Teams Team MemberRelationshipSpecialtyStart DateEnd Date Karmen Tovar, [employer] FOUNDER AND CEO-[employer] SOFTWARE [address] [place] [address] PCP - GeneralFamily Vcrqdpop81/22/24documented as of this encounter
--- OUTSIDE RECORDS SUMMARY | 2025-04-09 15:25 | XMS_ITS | Encounter Summary ---
Author Organization [facility] Address [address] [place] [address] Phone Care Team Providers Care Print Finisher Name Role Phone Karmen Tovar APRN-POWER HOUSE ENGINEER Primary Care Pro vider Reason for Visit * ReasonCommentsMed Refill Encounter Details DateTypeDepartmentCare Team (Latest Contact Info)Ciqqbifrusu72/23/2025Refill [address] [address] Elfego Mclean DO [address] [place] [address] [address], [address] [place] [id number] Atherosclerosis of sioux coronary artery of sioux heart without angina pectoris Social History Tobacco UseTypesPacks/DayYears UsedDateSmoking Tobacco: Every DayCigarettes Smokeless Tobacco: NeverAlcohol UseStandard Drinks/WeekCommentsYes0 (1 standard drink = 0.6 oz pure alcohol)socialCommentsUnknownSex and Gender InformationValueDate RecordedSex Assigned at BirthNot on fileLegal SexFemale 05/05/2022 9:37 PM ESTGender IdentityNot on fileSexual OrientationNot on file documented as of this encounter Plan of Treatment DateTypeDepartmentCare Team (Latest Contact Info)Xjzplifysfa06/11/2025 3:30 PM ESTOffice Visit [address] [address] Elfego Mclean, [address] [place] [address] 2, [address] [place] [address] documented as of this encounter Visit Diagnoses Diagnosis Atherosclerosis of sioux coronary artery of sioux heart without angina pectoris documented in this encounter Care Teams Team MemberRelationshipSpecialtyStart DateEnd Date Karmen Tovar APRN-POWER HOUSE ENGINEER [address] [place] [address] PCP - GeneralFamily Sipsmzuh97/22/24documented as of this encounter
--- OUTSIDE RECORDS SUMMARY | 2025-04-09 15:25 | XMS_ITS | Encounter Summary ---
Author Organization [facility] Address [address] [place] [address] Phone Care Team Providers Care Shopping Inspector Name Role Phone Karmen Tovar APRN-AUTOMOBILE ASSEMBLY SUPERVISOR Primary Care Pro vider Reason for Visit * ReasonOnset DateCommentsLab Kmyyza9903/30/2025 Encounter Details DateTypeDepartmentCare Team (Latest Contact Info)Siphkwzmilz15/20/2025Telephone [facility] [address] [address] Smiley Nayak LPN Lab Orders Social History Tobacco UseTypesPacks/DayYears UsedDateSmoking Tobacco: Every DayCigarettes Smokeless Tobacco: NeverAlcohol UseStandard Drinks/WeekCommentsYes0 (1 standard drink = 0.6 oz pure alcohol)socialCommentsUnknownSex and Gender InformationValueDate RecordedSex Assigned at BirthNot on fileLegal SexFemale 05/05/2022 9:37 PM ESTGender IdentityNot on fileSexual OrientationNot on file documented as of this encounter Miscellaneous Notes * Telephone Encounter - Smiley Nayak LPN - 04/02/2025 1:14 PM EDT Lab orders faxed. * Addendum Note - Smiley Nayak LPN - 04/01/2025 3:43 PM EDTAddended by: SMILEY NAYAK on: 04/01/2025 03:43 PM Modules accepted: Orders * Telephone Encounter - Smiley Nayak LPN - 03/30/2025 12:55 PM EDT Patient phoned inquiring about new lab orders. No lab orders given at last OV 04/01/24. Last labs done 01/29/24. What labs would you like to have done prior to upcoming OV on 04/21/25. To Dr. Elfego Mclean DO for review. Labs to be faxed to [facility]. documented in this encounter Plan of Treatment DateTypeDepartmentCare Team (Latest Contact Info)Chxjsespkjp97/11/2025 3:30 PM ESTOffice Visit [facility] [address] [phone] Elfego Mclean DO [address] [facility] [address], [address] [place] [address] NameTypePriorityAssociated DiagnosesOrder ScheduleC-Reactive Protein, High SensitivityLabRoutine Edema, unspecified type Myocardial infarction, unspecified AL type, unspecified artery (Multi) Expected: 04/02/2025 (Approximate), Expires: 04/02/2026Lipid PanelLabRoutine Hyperlipidemia, unspecified hyperlipidemia type Atherosclerosis of [place] coronary artery of [place] heart without angina pectoris Expected: 04/02/2025 (Approximate), Expires: 04/02/2026lanine Aminotransferase LabRoutine Hyperlipidemia, unspecified hyperlipidemia type Atherosclerosis of [place] coronary artery of [place] heart without angina pectoris Expected: 04/02/2025 (Approximate), Expires: 04/02/2026spartate AminotransferaseLabRoutine Hyperlipidemia, unspecified hyperlipidemia type Atherosclerosis of [place] coronary artery of [place] heart without angina pectoris Expected: 04/02/2025 (Approximate), Expires: 04/02/2026documented as of this encounter Visit Diagnoses Diagnosis Hyperlipidemia, unspecified hyperlipidemia type Atherosclerosis of [place] coronary artery of [place] heart without angina pectoris Edema, unspecified type Myocardial infarction, unspecified AL type, unspecified artery (Multi) documented in this encounter Care Teams Team MemberRelationshipSpecialtyStart DateEnd Date Karmen Tovar APRN-BEATA [address] [place] [address] PCP - GeneralFamily Hrdxoppo27/22/24documented as of this encounter
--- NOTE | 2025-04-09 15:26 | MM_ITS ---
Patient Name: NOEL MENDOZA MR#: [id number] : 1970 Exam Date: 04/09/2025 Ordering Doctor: CYNDEE MOSELEY DIRECTOR OF OUTREACH-C RADIOLOGY REPORT PROCEDURE: MM TOMOSYNTHESIS SCREENING BI COMPARISON: MM TOMOSYNTHESIS SCREENING BI, 04/03/2024. MM TOMOSYNTHESIS SCREENING BI, 03/28/2023. MG MAMM SCREEN 3D SAUL CAD, 09/08/2021. MG MAMM SAUL SCRN W CAD DIG, 08/06/2013. INDICATIONS: Screening Calculator Name NCI Breast Cancer Risk Assessment Tool 5 Year Breast Cancer Risk 0.90% Lifetime Breast Cancer Risk 6.40% Personal Breast Cancer No Personal Ovarian Cancer No Treatments None Family Cancers Father with prostate cancer at age 70; Brother with colon cancer at age 50. LOCATION: [facility] BREAST COMPOSITION: There are scattered areas of fibroglandular density. FINDINGS: DIAGNOSTIC CATEGORY 1--NEGATIVE. RIGHT BREAST: No significant suspicious finding. LEFT BREAST: No significant suspicious finding. RECOMMENDATIONS: ROUTINE MAMMOGRAM AND CLINICAL EVALUATION IN 12 MONTHS. Dictated by: Alvaro Masters DO on 04/09/2025 at 16:37 Approved by: Alvaro Masters DO on 04/09/2025 at 16:39
--- OUTSIDE RECORDS SUMMARY | 2025-04-09 15:33 | XMS_ITS | CCD ---
Author Organization [facility]iniS[facility] Care Team Providers Care Refrigerator Car Icer Name Role Phone UNKNOWN, PROVIDER Attending OSIEL Bowers Primary Care Osiel Bowers Unavailable Unavailable Unavailable Jael Fournier Unavailable Ms. Jerome Pelaez Attending Forest Pelaez, Ms. Cabral Referring Forest Pettit, Dr. Osiel Lester Primary Care Kimberley Bowen Unavailable Eduardo ZHOU Referring Unavailable Chris TRAYLOR Attending DO Osiel Bowers Primary Care Provider MANAV Christian Emergency Provider MD Shari Kang Admit Provider MD Shari Kang Attending Provider [phone] MD Savanna Orellana Attending Provider DO Rajesh Hurd Other Provider DO Osiel Pettit Primary Care Provider MANAV Christian Emergency Provider MD Shari Kang Admit Provider MD Savanna Orellana Attending Provider DO Rajesh Hurd Other Provider SHERMAN Rodríguez Attending Provider Dr. Osiel Pettit Primary Care Elfego Bacon Attending Forest Pelaez, Ms. Jerome Cason Attending Pennie Pettit, Dr. Osiel Lester Primary Care Elfego Bacon Referring DR OSIEL Bowers Primary Care Unavailable DAMEON, DR BAILEY LISTED Admitting Unavaila ble REQUEST, DR BAILEY LISTED Consulting Unavaila ble REQUEST, DR BAILEY LISTED Attending Unavaila ble HOUSE, DR CARTAGENA Primary Care Unavailable HOUSE, DR CARTAGENA Consulting Unavailable HOUSE, DR CARTAGENA Attending Unavailable HOUSE, DR CARTAGENA Referring Unavailable HOUSE, DR CARTAGENA Admitting Unavailable HOUSE, DR CARTAGENA Primary Care Unavailable ABELARDO ., DR MACHUCA Admitting Unavailable ABELARDO ., DR MACHUCA Consulting Unavailable ABELARDO ., DR MACHUCA Attending Unavailable LUTHER, DR DIANA Gonzalez Attending Unavailable HOUSE, DR CARTAGENA Primary Care Unavailable WEST, DR DIANA Gonzalez Admitting Unavailable WEST, DR DIANA Gonzalez Consulting Unavailable Mag Perry Unavailable Karmen Tovar Unavailable Osiel Pettit DO Primary Care Provider ELFEGO MCLENA Referring Unavailable OSIEL PETTIT Primary Care Unavailable Guy B2B OUTSIDE SALES REPRESENTATIVE-MEETING MANAGER, Karmen Dejesus Primary Care Pro vider Karmen Tovar APRN Primary Care Provider Ethan Burt MD Attending Provider [phone] Osiel Pettit MD Primary Care Provider Hui Vásquez DO Unavailable Karmen Tovar APRN Primary Care Provider Destiny Anders APRN Attending Provider Guy INSPECTOR AND TESTER, Karmen Dejesus Unavailable Chago MILNER, Destiny Unavailable Kilo Morfin MD Unavailable [phone] Kilo Beasley DO Unavailable [phone] Kilo Morfin MD Unavailable Destiny Anders NP Unavailable Kilo Morfin DO Unavailable Karmen Tovar APRN Primary Care Provider Carmel WOODS, Ethan Attending Provider [phone] Carmel WOODS, Ethan Other Provider Shefali Obrien CMA Attending Provider Unavailabl e Kilo Beasley DO Attending Provider Jenny B2B OUTSIDE SALES REPRESENTATIVE, Rey Emergency Provider Yolanda Zimmerman CMA Attending Provider Unavaila tiffanie Tovar INSPECTOR AND TESTER, Karmen Dejesus Unavailable Claudetterbachegael INSPECTOR AND TESTER, Karmen Dejesus Primary Care Provider DESTINY ANDERS Attending Unavailable HUI VÁSQUEZ Attending Unavailable GILLMORDESTINY Attending Unavailable MURCEK, KILO W Attending Unavailable GILLMOR, DESTINY Referring Unavailable MURCEK, KILO W Attending Unavailable MURCEK, KILO W Attending Unavailable GILLMOR, DESTINY Referring Unavailable GILLMOR, DESTINY Attending Unavailable GILLMOR, DESTINY Attending Unavailable MURCEK, KILO W Attending Unavailable MURCEK, KILO W Attending Unavailable MURCEK, KILO W Attending Unavailable Jenny Rey WHITAKER Emergency Provider Hui Vásquez DO Attending Provider Guy B2B OUTSIDE SALES REPRESENTATIVE, Karmen Primary Care Provider Carmel WOODS, Imad Attending Provider Destiny Anders APRN Attending Provider Guy B2B OUTSIDE SALES REPRESENTATIVE, Karmen Primary Care Provider Kilo Beasley Admitting Unavailable MurceKilo chávez Attending Unavailable Rohrbacher, Karmen Primary Care Unavailable Asaad, Imad Admitting Unavailable Asaad, Imad Attending Unavailable Rohrbacher, Karmen Primary Care Unavailable Asaad, Imad Admitting Unavailable Asaad, Imad Attending Unavailable Rohrbacher, Karmen Primary Care Unavailable Rohrbacher, Karmen Primary Care Unavailable Jenny, Rey Admitting Unavailable Jenny, Rey Attending Unavailable Destiny Anders Admitting Unavailable Destiny Anders Attending Unavailable Rohrbacher, Karmen Primary Care Unavailable Asaad, Imad Admitting Unavailable Asaad, Imad Attending Unavailable Rohrbacher, Karmen Primary Care Unavailable Ramos Kilo Admitting Unavailable MurcekKilo Attending Unavailable Rohrbacher, Karmen Primary Care Unavailable Rohrbacher B2B OUTSIDE SALES REPRESENTATIVE, Karmen Attending Provider ELFEGO MCLEAN Attending Unavailable KARMEN TOVAR Primary Care Unavailab le Allergies Allergy ClassificationReported Allergen(s)Allergy TypeDate of OnsetReaction(s) Facility (20 sources)Hmg-Coa Reductase Inhibitors (Statins); Translations: [Statins] Allergy to drug (finding)[facility] DO Work Phone: (20 sources)Penicillins; Translations: [Penicillins]Allergy to drug (finding) 96-05-8217[facility] ([facility] sources)Penicillin VDrug Fglxogj10-02-1630umdjzEozpkdjiyWyandot Memorial Hospital (1 source)Penicillin; Translations: [penicillin][facility]rug [facility]ergyOhio [facility] Rep[facility] (1 source)PenicillinsDrug allergy (disorder)06-19-6664TxmMartin [facility] (4 sources)HMG-CoA reductase inhibitor; Translations: [LGWRMBZ-VLV-MEI REDUCTASE INHIBITORS]Drug Xssxgds60-18-5054NsbdbwoNshooarfsuUniversity Hospitals Portage [facility] Work Phone: (2 sources)PenicillinsDrug Xhmhsfd22-74-3535SiynfZapjzvfelcOhioHealth [facility] (20 sources)HMG-CoA reductase inhibitorDrug Plbvwyh41-41-2147PjjosemHEFU Healthcare (20 sources)Penicillin GDrug Msdkjxo44-30-3285DexgvtrSMKK Healthcare (20 sources)PenicillinsDrug Ydvxuro39-56-8192IrfytLUAO Healthcare (8 sources)Hsqikyh-DSD-EnB Reductase Inhibitor; Translations: [Gisrmgq-MUT-XqY Reductase Inhibitor]Allergy to rczsjekrf47-71-1092LqgmoarMercy Health St. [facility] HospitalComment on above:muscle cramps (1 source)PenicillinDrug Yuxknfk05-29-2379QidylpvdzCommunity Memorial Hospital Repository Medications Current Medications MedicationDrug Class(es)DatesSig (Normalized)Sig (Original)acetaminophen 250 mg / aspirin 250 mg / caffeine 65 mg oral tablet (7 sources)Platelet Aggregation Inhibitor, Nonsteroidal Anti-inflammatory Drug, Central Nervous System Stimulant, MethylxanthineStart: 18-83-7945tzuk 1 tablet by mouth every six hours as needed for jqkpCrqwasg-Gjdsrxycccvxa-Hcgvsnoe (Excedrin Extra Strength) 250-250-65 mg tablet Active 1 TAB PO Every6 hours as needed for pain November 21, 2024 12:00am Complies with drug lwzvjowitd424607 200 actuat albuterol 0.09 mg/actuat metered dose inhaler (10 sources)beta2-Adrenergic AgonistStart: 82-72-7331zwka 1 puff(s) by inhalation every four to six hours as needed for wheezingAlbuterol Sulfate 90 mcg/actuation HFA aerosol inhaler Active 2 PUFF INHALATION EVERY 4-6 HOURS as n eeded for shortness of breath or wheezing 8.5 June 19, 2024 1:00am Complies with drug therapyaspirin 81 mg delayed release oral tablet (20 sources)Platelet Aggregation Inhibitor, Nonsteroidal Anti-inflammatory Drug Start: 25-51-9780gntb 1 tablet by mouth once dailyAspirin 81 mg tablet,delayed release (DR/EC) Active 81 MG PO Daily February 04, 2025 12:00am Complies with drug therapyStart: 05-15-2023 End: 43-23-5823elzt 2 tablets by mouth once dailyaspirin 81 mg EC tablet Indications: Atherosclerosis of [place] coronary artery of [place] heart without angina pectoris TAKE 2 TABLETS BY MOUTH EVERY DAY 60 tablet 11 05/15/2023 04/01/2024 Discontinued (Dose adjustment)Start: 52-13-9468vegw 1 tablet by mouth every other dayAspirin 81 MG Oral Tablet Delayed Release TAKE 1 TABLET EVERY OTHER DAY Quantity: 45 Refills: 3 Ordered: 02-Nov-2022 Elfego Mclean DO Start : 02-Nov-2022 Active Fill at patient request onlyStart: 76-24-9870jkha 1 tablet by mouth once dailyAspirin 81 mg Tablet,Delayed Release (Dr/Ec) Active 81 MG PO Daily 0 July 03, 2022 1:00amStart: 07-01-2019 End: 96-02-1194uqbu 2 tablets by mouth once dailyAspirin 81 mg tablet,delayed release (DR/EC) Discontinued 162 MG PO Daily July 01, 2019 1:00amJuly 03, 2022 4:45pmStart: 07-01-2019 End: 25-51-8420mywo 162 mg by mouth once dailyAspirin Discontinued 162 MG PO Daily July 01, 2019 1:00am July 03, 2022 4:45pmASPIRIN 81 MG chewable tablet Activebrompheniramine maleate 0.4 mg/ml / dextromethorphan hydrobromide 2 mg/ml / pseudoephedrine hydrochloride 6 mg/ml oral solution (1 source)alpha-Adrenergic Agonist, Uncompetitive G-jackbn-N-aspartate Receptor Antagonist, Sigma-1 AgonistStart: 85-47-7834bwsk 10 mL by mouth every six hours Gpeqnirqs-Czxkuicr-JO 30-2-10 MG/5ML 10 mL Orally every 6 hours for 5 days Apr, ActivebusPIRone hydrochloride 10 mg oral tablet (1 source)Start: 98-70-5238supe 1 tablet by mouth twice dailyBuspirone 10 mg tablet Active 10 MG PO Twice daily March 24, 2025 12:00am Complies with drug therapycholecalciferol 0.05 mg oral capsule (20 sources)Vitamin DStart: 56-98-3559owfo 1 capsule by mouth once daily in the morningCholecalciferol (Vitamin D3) (Vitamin D3) 50 mcg (2,000 unit) Capsule Active 50 MCG PO Every morning August 31, 2020 12:00am Complies with drug therapycholecalciferol (Vitamin D-3) 50 MCG (2000 UT) tablet 1 (one) time each day at the same time Activetake 1 capsule by mouth every twenty-four hours Vitamin D3 50 MCG (2000 UT) 1 capsule Orally Once a day Activeclindamycin 150 mg oral capsule (1 source)Lincosamide AntibacterialStart: 11-28-2024 End: 49-39-4465ocbn 1 capsule by mouth every eight hoursclindamycin (Cleocin) 150 MG capsule Indications: ALMA (obstructive sleep apnea) Take 1 capsule (150mg) by mouth every 8 (eight) hours for 7 days 21 capsule 11/28/2024 12/05/2024 ActiveDULoxetine 60 mg delayed release oral capsule (20 sources)Serotonin and Norepinephrine Reuptake InhibitorStart: 43-73-5562maly 1 capsule by mouth once daily in the morningDuloxetine 60 mg capsule,delayed release(DR/EC) Active 60 MG PO Every morning November 21, 2024 12:00am TAKE 1 CAPSULE DAILY Complies with drug therapyStart: 04-14-2024 End: 30-05-4796Wiugmosacf 60 mg capsule,delayed release(DR/EC) Discontinued 0 .ROUTE .COMPLEX October 13, 2024 7:52am November 21, 2024 12:05pm TAKE 1 CAPSULE DAILYStart: 16-42-8625pxdt 1 capsule by mouth once dailyDULoxetine HCl - 30 MG Oral Capsule Delayed Release Particles TAKE 1 CAPSULE BY MOUTH EVERY DAY Michael tity: 30 Refills: 1 Ordered: 26-Feb-2023 Casonbennett DOMINGUEZ Jerome Start : 26-Feb-2023 ActiveStart: 07-01-2019 End: 41-76-5944zvoh 1 capsule by mouth once dailyDuloxetine 60 mg capsule,delayed release(DR/EC) Discontinued 60 MG PO Daily July 01, 2019 1:00am April 14, 2024 9:03amCymbalta ActiveDuloxetine 60 mg capsule,delayed release(DR/EC) (4 sources)Start: 07-51-7419Yarkduoiou 60 mg capsule,delayed release(DR/EC) Active 0 .ROUTE .COMPLEX April 14, 2024 9:03am TAKE 1 CAPSULE DAILYStart: 32-16-4946Ushknxerzg 60 mg capsule,delayed release(DR/EC) Active 0 .ROUTE .COMPLEX 90 April 14, 2024 8:03am TAKE 1 CAPSULE DAILYElastic Bandages & Supports (Wrist Splint/Cock-Up/Left 2XSm) misc (20 sources)Elastic Bandages & Supports (Wrist Splint/Cock-Up/Left 2XSm) misc G56.00 Active1 ml evolocumab 140 mg/ml prefilled syringe (20 sources)PCSK9 InhibitorStart: 09-03-2023 End: 11-77-8755Pbnbhrbaxb (Repatha Syringe) 140 mg/mL syringe Active 140 MG SUBCUT .p0sivrm October 23, 2023 12:00amComplies with drug therapyStart: 05-10-2023 End: 43-46-3234qybljm 1 mL by subcutaneous injection onceevolocumab (Repatha SureClick) 140 mg/mL injection Indications: Atherosclerosis of [place] coronary a rtery of [place] heart without angina pectoris , Hyperlipidemia, unspecified hyperlipidemia type Inject 1 mL (140 mg) under the skin every 14 (fourteen) days. 6 mL 3 04/01/2024 04/01/2025 ActiveStart: 91-80-1338Gyavcvq 140 MG/ML Subcutaneous Solution Prefilled Syringe 1 injection every 2 weeks Quantity: 6 Refills: 3 Ordered: 26-Jan-2023 Jerome Younger Start : 26-Jan-2023 Active replaces Praulentfamotidine 20 mg oral tablet (20 sources)Histamine-2 Receptor Antagonistfamotidine (Pepcid) 20 MG tablet 1 (one) time each day at the same time Activelinaclotide 0.072 mg oral capsule (9 sources)Guanylate Cyclase-C Agonist End: 75-11-0321eqfbIGLzxxo (Linzess) 72 MCG capsule Linzess 07/31/2024 Discontinued (Therapy completed)24 hr metFORMIN hydrochloride 500 mg extended release oral tablet (9 sources)BiguanideStart: 05-07-2023 End: 08-30-9761grbJKKLBF XR (Glucophage-XR) 500 MG 24 hr tablet Indications: Insulin resistance 30 tablet 11 05/07/2023 07/31/2024 Discontinued (Therapy completed)metoprolol tartrate 25 mg oral tablet (20 sources)beta-Adrenergic BlockerStart: 04-63-3985lhzg 0.5 tablet by mouth twice dailyMetoprolol Tartrate 25 MG Oral Tablet take 1/2 tablet by mouth twice a day Quantity: 90 Refills: 0 Ordered: 06-Dec-2021 Jerome Younger Start : 06-Oct-2021 ActiveStart: 09-01-2020 End: 77-40-1085wqel 1 tablet by mouth twice dailyMetoprolol Tartrate 25 mg Tablet Active 25 MG PO Twice daily 60 30 September 01, 2020 12:00am Complies with drug therapyStart: 07-01-2019 End: 90-22-2507Ghikwoopfh Tartrate 25 mg tablet Discontinued 12.5 MG PO Twice daily July 01, 2019 1:00am September 01, 2020 12:51pmStart: 07-01-2019 End: 59-08-7076suex 12.5 mg by mouth twice dailyMetoprolol Tartrate Discontinued 12.5 MG PO Twice daily July 01, 2019 1:00am September 01, 2020 12:51pm Multiple Vitamin (multivitamin) capsule (20 sources)Multiple Vitamin (multivitamin) capsule ActiveMultiple Vitamin (multivitamin) capsule Orally Activepantoprazole 40 mg delayed release oral tablet (20 sources)Proton Pump InhibitorStart: 09-37-5211qexy 1 tablet by mouth once daily in the morningPantoprazole 40 mg tablet,delayed release (DR/EC) Active 40 MG PO Every morning November 21, 2024 12:00am TAKE 1 TABLET DAILY Complies with drug therapyStart: 04-14-2024 End: 41-28-5781Luuclcxwlhab 40 mg tablet,delayed release (DR/EC) Discontinued 0 .ROUTE .COMPLEX April 14, 2024 9:03am November 21, 2024 12:05pm TAKE 1 TABLET DAILYStart: 07-01-2019 End: 62-84-8364ocxc 1 tablet by mouth once dailyPantoprazole 40 mg tablet,delayed release (DR/EC) Discontinued 40 MG PO Daily July 01, 2019 1:00am April 14, 2024 9:03amtake 1 tablet by mouth once daily before mealtimepantoprazole (ProtoNix) 20 mg EC tablet Take 1 tablet (20 mg) by mouth once daily in the morning. Take before meals. Do not crush, chew, or split. ActivePantoprazole 40 mg tablet,delayed release (DR/EC) (4 sources)Start: 98-79-7851Hxabkzroiabf 40 mg tablet,delayed release (DR/EC) Active 0 .ROUTE .COMPLEX April 14, 2024 9:03am TAKE 1 TABLET DAILYStart: 78-55-9210Ujqnciayqjqb 40 mg tablet,delayed release (DR/EC) Active 0 .ROUTE .COMPLEX April 14, 2024 8:03am TAKE 1 TABLET DAILYRespiratory Therapy Supplies (CareTouch CPAP Mask Wipes) misc (20 sources)Respiratory Therapy Supplies (CareTouch CPAP Mask Wipes) [facility] [place] Auto CPAP Auto CPAP minimum 5cmH2O maximum 77jyZ8N dx: G47.30 Q sleep and nap CPAP mask and supplies DX: ALMA Active0.25 mg, 0.5 mg dose 1.5 ml semaglutide 1.34 mg/ml pen injector (18 sources)Start: 07-30-2023 End: 68-89-4085lfzxbo 0.5 mg by subcutaneous injection every weeksemaglutide (Ozempic, 0.25 or 0.5 MG/DOSE,) 2 MG/1.5ML solution pen-injector Indications: Insulin resistance Inject 0.5 mg under the skin 1 (one) time per week 4.5 mL 1 07/30/2023 07/31/2024 Discontinued (Therapy completed)Start: 03-27-2023 End: 19-27-6932illfre 0.25 mg by subcutaneous injection every weeksemaglutide (Ozempic, 0.25 or 0.5 MG/DOSE,) 2 MG/1.5ML solution pen-injector Indications: Insulin resistance Inject 0.25 mg under the skin 1 (one) time per week. 1 each 1 03/27/2023 07/31/2024 Discontinued (Therapy completed)Semaglutide,0.25 or 0.5MG/DOS, (Ozempic, 0.25 or 0.5 MG/DOSE,) 2 MG/3ML solution pen-injector (9 sources)Start: 05-07-2023 End: 75-05-2383Lhihkulgapb,0.25 or 0.5MG/DOS, (Ozempic, 0.25 or 0.5 MG/DOSE,) 2 MG/3ML solution pen-injector Indications: Insulin resistance Inject 3 mL under the skin 1 (one) time per week. 2 mL 05/07/2023 07/31/2024 Discontinued (Therapy completed)Start: 93-82-6114Esmuxfpmiuv,0.25 or 0.5MG/DOS, (Ozempic, 0.25 or 0.5 MG/DOSE,) 2 MG/3ML solution pen-injector Indications: Insulin resistance Inject 3 mL under the skin 1 (one) time per week. 2 mL 05/07/2023 Activespironolactone 100 mg oral tablet (20 sources)Aldosterone AntagonistStart: 07-01-2019 End: 31-33-0947pdqs 1 tablet by mouth once daily in the eveningSpironolactone 100 mg tablet Active 100 MG PO Every evening July 01, 2019 1:00am Complies withdrug therapyspironolactone (Aldactone) 2 mg/mL solution (20 sources)spironolactone (Aldactone) 2 mg/mL solution Activespironolactone (Aldactone) 2 mg/mL solution Spironolactone Active Completed/Discontinued Medications MedicationDrug Class(es)DatesSig (Normalized)Sig (Original)1 ml alirocumab 150 mg/ml auto-injector (20 sources)PCSK9 InhibitorStart: 24-08-0164wwfydn 75 mg by subcutaneous injection every other weekPraluent 75 MG/ML Subcutaneous Solution Auto-injector INJECT 75MG EVERY 2 WEEKS UNDER THE SKIN Quantity: 6 Refills: 3 Ordered: 21-Nov-2021 Jerome Younger Start : 21-Nov-2021 ActiveStart: 93-09-3023iinexb 75 mg by subcutaneous injection every other weekPraluent 75 MG/ML Subcutaneous Solution Auto-injector INJECT 75MG EVERY 2 WEEKS UNDER THE SKIN Quantity: 6 Refills: 3 Ordered: 17-Nov-2021 Jerome Younger Start : 17-Nov-2021 ActiveStart: 10-26-2021 End: 32-92-9171uxdlul 150 mg by subcutaneous injection every other week Alirocumab (Praluent Pen) 150 mg/mL pen injector Discontinued 150 MG SUBCUT EVERY 2 WEEKS July 02, 2022 1:00am October 23, 2023 12:09zdNwn7392-Fwy Owy-Pfca-Apx-Asb-C (11 sources)Osmotic Laxative, Vitamin CStart: 03-20-2024 End: 93-21-0920Eiy1794-Sod Rrr-Iuqu-Brm-Asb-C (Plenvu) 140-9-5.2 gram powder in packet, sequential Discontinued 140 ML PO .COMPLEX 1 March 20, 2024 12:00am April 04, 2024 11:59am First does at 4pm the daybefore the colonoscopy; second dose at 11pm the night before the colonoscopy.Start: 03-20-2024 End: 98-42-4915Ajv9644-Sod Pus-Kpca-Nql-Asb-C (Plenvu) 140-9-5.2 gram powder in packet, sequential Discontinued 140 ML PO .COMPLEX 1 March 19, 2024 11:00pm April 04, 2024 10:59am First does at 4pm the day before the colonoscopy; second dose at 11pm the night before the colonoscopy.atorvastatin 40 mg oral tablet (20 sources)HMG-CoA Reductase InhibitorStart: 07-01-2019 End: 64-88-5767Aaehinktggoy 40 mg tablet Discontinued 12.5 MG PO Twice daily July 01, 2019 1:00am August 1:43amStart: 07-01-2019 End: 13-91-5967tsro 12.5 mg by mouth twice dailyAtorvastatin Discontinued 12.5 MG PO Twice daily July 01, 2019 1:00am August 31, 2020 1:43am End: 37-76-0867yfpiabivudal (Lipitor) 20 MG tablet 1 (one) time each day at the same time. 07/31/2024 Discontinued(Therapy completed)bempedoic acid 180 mg oral tablet (15 sources)Start: 08-31-2020 End: 72-99-4648rccm 1 tablet by mouth once dailyBempedoic Acid (Nexletol) 180 mg tablet Discontinued 180 MG PO Daily August 31, 2020 12:00am July 02, 2022 8:12pmbenzonatate 100 mg oral capsule (15 sources)Non-narcotic AntitussiveStart: 07-02-2019 End: 29-22-4886jzej 1 capsule by mouth three times daily as needed for cough Benzonatate (Tessalon Perles) 100 mg capsule Discontinued 100 MG PO Three times daily as needed forcough July 02, 2019 1:00am August 31, 2020 1:41am bismuth subsalicylate 262 mg oral tablet (10 sources)BismuthStart: 04-22-2024 End: 80-66-6962sqra 1 tablet by mouth four times dailyBismuth Subsalicylate ([place] Bismuth) 262 mg tablet Discontinued 524 MG PO Four times daily 112 14 No vember 2023 1:00am July 16, 2024 2:37pm24 hr buPROPion hydrochloride 150 mg extended release oral tablet (20 sources)AminoketoneStart: 10-23-2024 End: 24-61-8398suwj 1 tablet by mouth once daily in the morningBupropion Hcl 150 mg tablet extended release 24 hr Discontinued 0 .ROUTE .COMPLEX 90 October 231:16October 24, 2024 8:06am TAKE 1 TABLET BY MOUTH EVERY MORNING FOR 30 DAYSStart: 86-20-7436sozn 1 tablet by mouth every twenty-four hours in the morningbuPROPion XL (Wellbutrin XL) 150 MG 24 hr tablet Take 150 mg by mouth in the morning. 09/30/2024 ActiveStart: 09-30-2024 End: 44-02-4032stlo 1 tablet by mouth once daily in the morningBupropion Hcl (Wellbutrin Xl) 150 mg tablet extended release 24 hr Discontinued 150 MG PO Every morning September 30, 2024 12:00am October 23, 2024 11:16amclopidogrel 75 mg oral tablet (20 sources)P2Y12 Platelet InhibitorStart: 08-31-2020 End: 63-60-0624beyc 1 tablet by mouth once daily in the morningClopidogrel 75 mg Tablet Discontinued 75 MG PO Every morning November 21, 2024 12:00am February 04, 2025 12:40pmdoxycycline hyclate 100 mg oral capsule (5 sources)Tetracycline-class DrugStart: 50-70-8173rvkf 1 capsule by mouth every twelve hoursDoxycycline Hyclate 100 MG 1 capsule Orally Twice a day for 10 day(s) Aug, Not-Takingfenofibrate 54 mg oral tablet (3 sources)Peroxisome Proliferator Receptor alpha AgonistStart: 03-02-2023 End: 80-30-6911stcs 1 tablet by mouth once dailyFenofibrate 54 MG Oral Tablet TAKE 1 TABLET DAILY. Quantity: 90 Refills: 3 Ordered: 02-Mar-2023 Elfego Mclean DO Start : 02-Mar-2023 Activefluticasone propionate 0.05 mg/actuat metered dose nasal spray (6 sources)CorticosteroidStart: 24-48-5379npys 1 spray(s) nasal route once daily Flonase Allergy Relief 50 MCG/ACT 1 spray in each nostril Nasally Once a day for 14 day(s) Dec, Not-Takingfurosemide 20 mg oral tablet (20 sources)Loop DiureticStart: 02-01-2022 End: 54-03-7742hxia 1 tablet by mouth once daily as needed for edemaFurosemide 20 mg Tablet Discontinued 20 MG PO Daily as needed for edema July 02, 2022 1:00am October 23, 2023 12:28pmgabapentin 100 mg oral capsule (3 sources)Anti-epileptic AgentStart: 02-04-2025 End: 26-96-1548lajv 1 capsule by mouth three times dailyGabapentin 100 mg capsule Discontinued 100 MG PO Three times daily February 04, 2025 12:00am March 24, 2025 3:03pmibuprofen 800 mg oral tablet (15 sources)Nonsteroidal Anti-inflammatory DrugStart: 09-01-2020 End: 04-72-8450Rytvsdbwa 800 mg Tablet Discontinued 800 MG PO every 6 to 8 hours as needed for Pain September 01, 2020 12:00am September 01, 2020 12:51pmLORazepam 0.5 mg oral tablet (20 sources)BenzodiazepineStart: 07-02-2019 End: 72-29-6075efst 1 tablet by mouth three times daily as needed for anxiety Lorazepam 0.5 mg Tablet Discontinued 0.5 MG PO Three times daily as needed for Anxiety July 02, 2019 1:00am July 02, 2019 5:53pm End: 86-06-2985JBEknuscy (Ativan) 0.5 MG tablet every 12 (twelve) hours. 07/31/2024 Discontinued (Therapy completed)methylPREDNISolone 4 mg oral tablet (20 sources)CorticosteroidStart: 06-19-2024 End: 19-53-9396wkjz 1 tablet by mouth onceMethylprednisolone (Medrol (Nolan)) 4 mg tablets,dose pack Discontinued 0 PO per package directions June 19, 2024 1:00am July 16, 2024 2:38pm PO PER PKG DIR for 6 daysStart: 01-28-2024 End: 02-24-7659bnqn 1 tablet by mouth onceMethylprednisolone (Medrol (Nolan)) 4 mg tablets,dose pack Discontinued 0 PO per package directions January 28, 2024 12:00am April 04, 2024 11:58am PO PER PKG DIRmetroNIDAZOLE 500 mg oral tablet (10 sources)Nitroimidazole AntimicrobialStart: 04-22-2024 End: 64-18-8971dycd 1 tablet by mouth three times dailyMetronidazole 500 mg tablet Discontinued 500 MG PO Three times daily 42 April 22, 2024 1:00am June 19, 2024 7:22pmomeprazole 40 mg delayed release oral capsule (19 sources)Proton Pump InhibitorStart: 04-22-2024 End: 40-50-5837uldm 1 capsule by mouth twice dailyOmeprazole 40 mg capsule,delayed release(DR/EC) Discontinued 40 MG PO Twice daily April 22, 2024 1:00am June 19, 2024 7:28pmondansetron 4 mg oral tablet (10 sources)Serotonin-3 Receptor AntagonistStart: 05-06-2024 End: 34-41-3505ehqe 1 tablet by mouth twice dailyOndansetron Hcl 4 mg tablet Discontinued 4 MG PO Twice daily May 06, 2024 1:00am June 19, 2024 7:28pmprasugrel 10 mg oral tablet (15 sources)P2Y12 Platelet InhibitorStart: 07-02-2019 End: 76-79-2136bwjk 1 tablet by mouth once dailyPrasugrel Hcl (Effient) 10 mg Tablet Discontinued 10 MG PO Daily July 02, 2019 1:00am August 31, 2020 1:41ampredniSONE 10 mg oral tablet (20 sources)Start: 07-16-2024 End: 09-03-8523eqio 0.5 tablet by mouth once dailyPrednisone 10 mg tablet Discontinued 10 MG PO daily July 16, 2024 1:00am October 09, 2024 9:28am Take 40 mg for 2 days, 30 mg for 2 days, 20 mg for 2 days, 10 mg for 2 days, 1/2 tablet for 2 daysStart: 08-31-2020 End: 65-17-2154ljap 1 tablet by mouth once dailyPrednisone 50 mg tablet Discontinued 50 MG PO Daily 5 August 31, 2020 12:00am July 02, 2022 8:12pmterbinafine 250 mg oral tablet (11 sources)Allylamine AntifungalStart: 01-31-2024 End: 55-89-8777jvrg 1 tablet by mouth once dailyTerbinafine Hcl 250 mg tablet Discontinued 250 MG PO Daily January 31, 2024 12:00am April 04, 2024 11:58amtetracycline hydrochloride 500 mg oral capsule (10 sources)Tetracycline-class AntimicrobialStart: 04-22-2024 End: 98-71-7768qcby 1 capsule by mouth four times dailyTetracycline 500 mg capsule Discontinued 500 MG PO Four times daily 56 April 22, 2024 1:00am June 19, 2024 7:22pmtiZANidine 2 mg oral tablet (12 sources)Central alpha-2 Adrenergic AgonistStart: 01-28-2024 End: 34-34-2627ejfq 1 tablet by mouth every eight hours as neededTizanidine 2 mg tablet Discontinued 2 MG PO Every 8 hours as needed for muscle spasticity 30 January 28, 2024 12:00am October 09, 2024 9:29amtriamcinolone acetonide 1 mg/ml topical cream (9 sources)CorticosteroidStart: 07-16-2024 End: 17-58-8860Nhnknqubmygrn Acetonide 0.1 % cream Discontinued 1 APPLIC TOPICAL Twice daily 30 July 16, 2024 1:00am October 09, 2024 9:29am Problems Active Problems Problem ClassificationProblemDateDocumented DateEpisodic/ChronicAcute myocardial infarction (20 sources)Myocardial infarction; Translations: [Acute myocardial infarction of unspecified site, episode of care unspecified]Onset: 07-12-2013 Resolved: 530754-10-1927JbhfnudWtvidvi on above:Problem List clean-up per request of Phys. EHR CmteAnxiety disorders (2 sources)Anxiety; Translations: [Anxiety disorder, unspecified]03-24-2025 ChronicCardiac dysrhythmias (20 sources)Paroxysmal supraventricular tachycardia; Translations: [Paroxysmal supraventricular tachycardia]Onset: 03-23-2023 Resolved: 988368-49-0030ObfngpwUunzzkh on above:Problem List clean-up per request of Phys. EHR CmteChronic obstructive pulmonary disease and bronchiectasis (11 sources)Bronchitis; Translations: [Bronchitis, not specified as acute or chronic]30-70-2692DrmijhjoTrggfsdf atherosclerosis and other heart disease (20 sources)Old myocardial infarction; Translations: [Atherosclerotic heart disease of s[place] coronary artery without angina pectoris]Onset: 09-22-2013 23-21-0757LnlblljPoufitr on above:Problem List clean-up per request of Phys. EHR CmteCoronary atherosclerosis and other heart disease (6 sources)Coronary angioplasty status; Translations: [Post percutaneous transluminal coronary angioplasty]Onset: 805376-42-8784YfwrzrbmLguywwye of white blood cells (15 sources)Leukocytosis; Translations: [Elevated white blood cell count, unspecified]43-69-4116HvqudtmWlnlgda on above:Problem List clean-up per request of Phys. EHR CmteDisorders of lipid metabolism (20 sources)Hyperlipidemia; Translations: [Other and unspecified hyperlipidemia] Onset: 479758-75-1050FckbfouZ Codes: Natural/environment (14 sources)Tick bite; Translations: [Bitten or stung by nonvenomous insect and other nonvenomous arthropods, initial encounter]66-61-3769QdonvzvkHixfwqgxnn disorders (20 sources)Gastroesophageal reflux disease without esophagitis; Translations: [Gastro-esophageal reflux disease without esophagitis]Onset: 08-24-2024 Resolved: 06-33-8478IkvttvcIhscohucv hypertension (18 sources)Hypertensive disorder; Translations: [Essential (primary) hypertension]42-98-8474AlqywrwGqhyr of unknown origin (12 sources)Fever; Translations: [Fever, unspecified]04-20-2390RyfjreakNqgne and electrolyte disorders (15 sources)Hyponatremia; Translations: [Hypo-osmolality and hyponatremia] 56-20-9766FafyzdnvBefexxg on above:Problem List clean-up per request of Phys. EHR CmteGenitourinary symptoms and ill-defined conditions (1 source)DysuriaEpisodicHeadache; including migraine (20 sources)Complicated migraine; Translations: [Migraine with aura, not intractable, without status migrainosus]Onset: 173322-32-5599Lkfqewo Headache; including migraine (14 sources)Headache; Translations: [Headache]90-89-7763YvziyauxNfzajvt and fatigue (20 sources)Other fatigue; Translations: [Fatigue]Onset: EpisodicMycoses (12 sources)Onychomycosis; Translations: [Tinea unguium]49-49-8555Ilqvobnn Nonspecific chest pain (20 sources)Other chest pain; Translations: [Chest discomfort]Onset: 06-28-2018 Resolved: 598800-00-9160FoihomyqKsjemdg on above:Problem List clean-up per request of Phys. EHR CmteOther aftercare (18 sources)Patient encounter status; Translations: [Other correction (current) drug therapy]03-70-8288BfywteblXfsyu circulatory disease (20 sources)Cardiac function test normal; Translations: [Normal cardiac ejection fraction]EpisodicOther circulatory disease (2 sources)Personal history of transient ischemic attack (TIA), and cerebral infarction without residual deficitsEpisodicOther circulatory disease (3 sources)History of cerebrovascular accident; Translations: [Personal history of transient ischemic attack (TIA), and cerebral infarction without residual deficits]12-60-3539SdfcrgrhHhwen connective tissue disease (15 sources)Musculoskeletal pain; Translations: [Myalgia, other site]08-31-2020 EpisodicComment on above:Problem List clean-up per request of Phys. EHR Cmte Other connective tissue disease (11 sources)Epicondylitis; Translations: [Lateral epicondylitis]07-16-2024 EpisodicOther connective tissue disease (1 source)Pain in left arm; Translations: [Pain in left arm]48-65-5982Zcvqybyp Other gastrointestinal disorders (7 sources)Diarrhea due to drug; Translations: [Toxic gastroenteritis and colitis]00-89-7320ZjihnfpbWbivx hematologic conditions (13 sources)Raised cardiac enzyme or marker; Translations: [Other specified abnormalities of plasma proteins]84-17-5323YjhyzjehRsxispq on above:Problem List clean-up per request of Phys. EHR CmteOther lower respiratory disease (1 source)Shortness of breathOnset: 43-59-5228AfglsusnUeuvj nervous system disorders (20 sources)Carpal tunnel syndrome of left wrist; Translations: [Carpal tunnel syndrome, left upper limb]Onset: 327567-13-7038CqnryqeGglip nervous system disorders (15 sources)Numbness; Translations: [Anesthesia of skin]77-36-2549Sikuieei Comment on above:Problem List clean-up per request of Phys. EHR CmteOther nervous system disorders (7 sources)Numbness and tingling sensation of skin; Translations: [Anesthesia of skin]64-08-1399AwpxercnIxxca nervous system disorders (6 sources)Paresthesia; Translations: [Paresthesia of skin]27-66-6671Tvakdfps Other nutritional; endocrine; and metabolic disorders (10 sources)Body mass index 25-29 - overweight; Translations: [Body Mass Index 28.0-28.9, adult]EpisodicOther screening for suspected conditions (not mental disorders or infectious disease) (18 sources)Encounter for screening for malignant neoplasm of cervix; Translations: [Patient encounter status]Onset: 53-31-3664QwxsakwqUermiar on above:Problem List clean-up per request of Phys. EHR CmteOther skin disorders (9 sources)Eruption; Translations: [Rash and other nonspecific skin eruption] 30-63-3120BteumghgMytou skin disorders (2 sources)Rash and other nonspecific skin eruption; Translations: [Rash and other nonspecific skin eruption]52-33-2842UjkfnjbdDschl upper respiratory infections (15 sources)Acute pansinusitis, unspecified; Translations: [Acute upper respiratory infection, unspecified]Onset: 08-12-2021 Resolved: 84-37-2813NifzimvgRlzouxgi codes; unclassified (20 sources)Obstructive sleep apnea syndrome; Translations: [Obstructive sleep apnea (adult) (pediatric)]Onset: 309440-85-9168AdejevmZjemmbyz codes; unclassified (15 sources)Periodic limb movement disorder; Translations: [Periodic limb movement disorder]Onset: 747025-36-2442JezktjhWofrixnr codes; unclassified (12 sources)Periodic leg movements of sleep ; Translations: [Periodic limb movement disorder]Onset: 137079-03-2152EqvsjwcCtqfetgk codes; unclassified (5 sources)Hypersomnia; Translations: [Hypersomnia, unspecified]02-12-2025 ChronicResidual codes; unclassified (1 source)Obstructive sleep apnea (adult) (pediatric); Translations: [Obstructive sleep apnea (adult) (pediatric)]Onset: 07-88-6645OyhsvwiYcfugzck codes; unclassified (5 sources)Swelling - edema - symptom; Translations: [Edema]EpisodicResidual codes; unclassified (4 sources)Other specified health status; Translations: [Other specified conditions influencing health status]33-13-3358NxowswjmRxpvpouqmck; intervertebral disc disorders; other back problems (14 sources)Neck pain; Translations: [Cervicalgia]39-31-3128DqsclntsPqkmwceqy- related disorders (20 sources)Nicotine dependence, unspecified, uncomplicated; Translations: [Smokes tobacco daily]Onset: 06-28-2018 Resolved: 881851-18-8008OqxttbxBanhdjn on above:SMOKES ABOUT 1 PPD;Problem List clean-up per request of Phys. EHR CmteTransient cerebral ischemia (20 sources)Transient cerebral ischemia; Translations: [Unspecified transient cerebral ischemia]Onset: 99-49-161703190086-31-8589KhymbdoOpwwlraqyfwz (1 source)Pure hypercholesterolemia, unspecifiedOnset: 08-50-5931Armamvuwfamc (1 source)Prsnl hx of TIA (TIA), and cereb infrc w/o resid deficitsOnset: 06-28-2018 Past or Other Problems Problem ClassificationProblemDateDocumented DateEpisodic/ChronicAbdominal pain (15 sources)Right upper quadrant pain; Translations: [Right upper quadrant pain] Onset: 03-09-2014 Resolved: 423953-08-6447IisqtwhuObyvntl tract disease (15 sources)Biliary dyskinesia; Translations: [Other specified diseases of gallbladder]Onset: 08-24-2024 Resolved: 024080-81-7010GudifjaiQhananmo mellitus without complication (20 sources)Diabetes mellitus; Translations: [Diabetes mellitus without mention of complication, type II or unspecified type, not stated as uncontrolled]Onset: 08-20-2023 Resolved: 632297-67-7792ZdiqxkwLprrpzmfklefx and screening for infectious disease (2 sources)Contact with and (suspected) exposure to other viral communicable diseases; Translations: [Encounter for screening for human papillomavirus (HPV)] Onset: 08-12-2021 Resolved: 73-95-9746RimfnlwzRqslwhjwht infection (15 sources)Infection caused by Helicobacter pylori; Translations: [Other specified bacterial intestinal infections]Onset: 03-19-2014 Resolved: 476002-24-4825RvdolhffKjzs disorders (20 sources)Reactive depression (situational); Translations: [Major depressive disorder, single episode, unspecified]Onset: 08-20-2023 Resolved: 51-29-0823PrfcwduQyqcl circulatory disease (20 sources)Patient post angioplasty; Translations: [Other postprocedural status]Onset: 03-23-2023 Resolved: 949351-38-1363NenxvsnnFuwli circulatory disease (2 sources)Peripheral vascular angioplasty status; Translations: [Peripheral vascular angioplasty status]Onset: 78-68-4924YptihlwtFviia gastrointestinal disorders (1 source)Diarrhea, unspecified; Translations: [Diarrhea, unspecified]Onset: 54-01-4130MsawketsPmjen infections; including parasitic (1 source)Personal history of other infectious and parasitic diseases; Translations: [Personal history of other infectious and parasitic diseases] Onset: 39-37-7520YstddxnkRndsp lower respiratory disease (20 sources)Snoring; Translations: [Snoring]Onset: 374338-90-8842Djswdvkt Other nervous system disorders (4 sources)Anesthesia of skin; Translations: [Disturbance of skin sensation] Onset: 014833-55-4246IfpauybmYbjix nervous system disorders (20 sources)Paresthesia of left upper limb; Translations: [Paresthesia of skin] Onset: 143847-17-9283DwadajurDipkn nervous system disorders (20 sources)Paresthesia of right upper limb; Translations: [Paresthesia of skin] Onset: 778770-13-3805FgsoopvqTxvmg nervous system disorders (20 sources)Paresthesia of foot ; Translations: [Paresthesia of skin]Onset: 751290-05-7308VwziipyrKxdme nutritional; endocrine; and metabolic disorders (20 sources)Overweight in adulthood with body mass index of 25 or more but less than 30; Translations: [Overweight]Onset: 04-01-2024 Resolved: 127030-72-3121ZcrpwburEsyhw nutritional; endocrine; and metabolic disorders (2 sources)Body mass index (BMI) 29.0-29.9, adult; Translations: [Body mass index (BMI) 29.0-29.9, adult]Onset: 23-48-1234UtvtzjpgJfzj-; endo-; and myocarditis; cardiomyopathy (except that caused by tuberculosis or sexually transmitted disease) (20 sources)Disease of pericardium, unspecified; Translations: [Pericarditis] Onset: 06-28-2018 Resolved: 776265-59-5041BkbpegnnNvljhlkk codes; unclassified (20 sources)Edema; Translations: [Edema]Onset: 03-23-2023 Resolved: 740044-39-2084BjnmdupjYsridrdz codes; unclassified (15 sources)Early satiety; Translations: [Early satiety]Onset: 08-24-2024 Resolved: 024609-48-0338DvoucbyxVzwxdbcglyno (2 sources)Contact with and (suspected) exposure to covid-19 Z20.822Unclassified (2 sources)History of COVID-19 Z86.16Viral infection (1 source)COVID-19 Results Test NameValueInterpretationReference RangeFacilityH Pylori Stool Ag, EIAon 12-04-2024H Pylori Stool Ag, EIANegativeNormalNegativeThe [facility] Physician GroupComment on above:Result Comment: Performed at: - [place] [id number] Commissioner: Davy Abbott PhD, Phone: [phone] PERFORMED BY: [address] [address] PATHOLOGIST WILDLIFE TECHNICIAN ALSISA ADLER M.D.Performed By: #### HPYL STOOL #### [facility] ,Stool Helicobacter pylori antigen detection by enzyme immunoassayOrdered By: Imad Asaad on 12-04-2024H. pylori Ag IA Ql (Stl)NegativeNegativeCommunity Memorial HospitalComment on above:Performed at: [facility] [address] [id number] Director: Davy Abbott PhD, Phone: [phone] aminotransferase [Enzymatic activity/volume] in Serum or PlasmaOrdered By: PROVIDER TEMP on 25-63-7335PLI [Catalytic activity/Vol]23 U/L Normal7-52Community Memorial HospitalComment on above:Performed By: #### CMP, CBC #### [place] [id number] USAAlbumin [Mass/volume] in Serum or Plasma by Bromocresol green (BCG) dye binding methoOrdered By: PROVIDER TEMP on 01-77-9280Tpzekao BCG dye [Mass/Vol]4.6 g/dL3.5-5.7FLima City HospitalAlkaline phosphatase [Enzymatic activity/volume] in Serum or PlasmaOrdered By: PROVIDER TEMP on 81-59-3378KAS [Catalytic activity/Vol]85 U/UPntnwq84-987RlpcnlmudCommunity Memorial HospitalComment on above:Performed By: #### CMP, CBC #### [place] [address] USAAppearance of UrineOrdered By: PROVIDER TEMP on 12-03-2024 Appearance (U)ClearNormalClearCommunity Memorial HospitalComment on above: Order Comment: Name Collection Type:: Clean-Voided MidstreamPerformed By: #### UA #### [place] [address] USAAspartate aminotransferase [Enzymatic activity/volume] in Serum or PlasmaOrdered By: PROVIDER TEMP on 14-66-6725MQI [Catalytic activity/Vol]25 U/YQvaleb16-02VpdahfbgeCommunity Memorial HospitalComment on above: Performed By: #### CMP, CBC #### [place] [address] USABasophils [#/volume] in Blood by Automated countOrdered By: PROVIDER TEMP on 94-22-2445Hxdofiuon (Bld) [#/Vol]0.1 10*3/uLNormal0.0-0.2 [facility] HospitalComment on above:Result Comment: PERFORMED BY: [place] [address] PATHOLOGIST WILDLIFE TECHNICIAN ALISSA ADLER M.D.Performed By: #### CMP, CBC #### [place] [address] USABasophils/100 leukocytes in Blood by Automated count Ordered By: PROVIDER TEMP on 14-45-0811Qezdutxgi/100 WBC (Bld)0.9 %Normal. [facility] Memorial HospitalComment on above:Performed By: #### CMP, CBC #### [facility] [address] [place] [address] USABilirubin Test strip Ql (U)Ordered By: PROVIDER TEMP on 98-52-8593Cirpgehyr Ql (U)NegativeNegativeCommunity Memorial Hospital Bilirubin.total [Mass/volume] in Serum or PlasmaOrdered By: PROVIDER TEMP on 07-76-9548Aiyvpcchd [Mass/Vol]0.6 mg/dLNormal0.3-1.0Community Memorial HospitalComment on above:Performed By: #### CMP, CBC #### [place] [address] USACalcium [Mass/volume] in Serum or PlasmaOrdered By: PROVIDER TEMP on 18-40-4763Rdjzucw [Mass/Vol]9.4 mg/dLNormal8.6-10.3FLima City HospitalComment on above:Performed By: #### CMP, CBC #### [place] [address] USACarbon dioxide, total [Moles/volume] in Serum or Plasma Ordered By: PROVIDER TEMP on 66-73-8448YV0 [Moles/Vol]23.3 mmol/OSudynb74.0-31.0 [facility] HospitalComment on above:Performed By: #### CMP, CBC #### [place] [address] USAChloride [Moles/volume] in Serum or PlasmaOrdered By: PROVIDER TEMP on 97-50-6210Jxwqhosb [Moles/Vol]103 mmol/UWgcojv91-646QqqwcqtavCommunity Memorial HospitalComment on above:Performed By: #### CMP, CBC #### [place] [address] USAColor of Urine by AutoOrdered By: PROVIDER TEMP on 67-89-3167Qtxdw (U)ColorlessNormalYellowCommunity Memorial HospitalComment on above:Order Comment: Name Collection Type:: Clean-Voided MidstreamPerformed By: #### UA #### [place] [address] USAComplete Blood Count Auto Diffon 85-86-2916Eyay Corpuscular HGB Conc33.7 g/nEEzemon84.0-35.0The [facility] Physician GroupComment on above:Performed By: #### CMP, CBC #### [place] [address] USAMonocytes/100 WBC (Bld)16.17 %Normal0.00-20.00The [facility] Physician GroupComment on above:Performed By: #### CMP, CBC #### [place] [address] USANRBC%0.1 /100{WBC}Normal0-0.5[facility] Comment on above:Performed By: #### CMP, CBC #### [place] [address] USAWhite Blood Count13.7 [CFU]/mLHigh3.8-11.6The [facility] Physician GroupComment on above:Performed By: #### CMP, CBC #### [place] [address] USAComprehensive Metabolic Panelon 76-59-3281Naergfp [Mass/Vol]4.6 g/dLNormal3.5-5.7[facility] Physician [facility] Hospital Of MeridianComment on above: Performed By: #### CMP, CBC #### [place] [address] USACreatinine Clr Calc Qsdyjvnn07.04NormalThe [facility] Physician GroupComment on above:Result Comment: PERFORMED BY: [place] [address] PATHOLOGIST WILDLIFE TECHNICIAN ALISSA ADLER M.D.Performed By: #### CMP, CBC #### [place] [address] USAGFR/1.73 sq M.predicted MDRD (S/P/Bld) [Vol rate/Area] mL/min/{1.73_m2}NormalThe [facility] Physician GroupComment on above:Performed By: #### CMP, CBC #### [place] [address] USACreatinine [Mass/volume] in Serum or PlasmaOrdered By: PROVIDER TEMP on 47-86-0463Duylmqdlhf [Mass/Vol]0.73 mg/dLNormal0.60-1.20 [facility] HospitalComment on above:Performed By: #### CMP, CBC #### [place] [address] USAEosinophils [#/volume] in Blood by Automated countOrdered By: PROVIDER TEMP on 56-22-4516Shxivvdlcby (Bld) [#/Vol]1.2 10*3/uLHigh0.0-0.45 [facility] HospitalComment on above:Performed By: #### CMP, CBC #### [place] [address] USAEosinophils/100 leukocytes in Blood by Automated count Ordered By: PROVIDER TEMP on 01-33-5496Mfzockkmwnj/100 WBC (Bld)8.6 %Normal. [facility] HospitalComment on above:Performed By: #### CMP, CBC #### [place] [address] USAErythrocyte distribution width [Ratio] by Automated count Ordered By: PROVIDER TEMP on 97-34-1836Segcckrqrmf distribution width (RBC) [Ratio]13.8 %Lrwxyc22.9-15.3FLima City HospitalComment on above: Performed By: #### CMP, CBC #### [place] [address] USAErythrocytes [#/volume] in Blood by Automated countOrdered By: PROVIDER TEMP on 38-27-3637BFD (Bld) [#/Vol]5.09 10*6/uLHigh3.60-5.00 [facility] HospitalComment on above:Performed By: #### CMP, CBC #### [place] [address] USAGlucose [Mass/volume] in Serum or PlasmaOrdered By: PROVIDER TEMP on 26-49-4699Wttvbwc [Mass/Vol]98 mg/tJBobuon51-466PzrtbhcirCommunity Memorial HospitalComment on above:ADA recommended reference rangeRandom Glucose Reference Range is dependent on time and content of last meal. Glucose of more than 200 mg/dL in a nonstressed, ambulatory subject supports the diagnosisof Diabetes Mellitus.Result Comment: Random Glucose Reference Range is dependent on time and content of last meal. Glucose of more than 200 mg/dL in a nonstressed, ambulatory subject supports the diagnosis of Diabetes Mellitus. ADA recommended reference rangePerformed By: #### CMP, CBC #### [facility] [address] [place] [address] USAGlucose [Mass/volume] in Urine by Test stripOrdered By: PROVIDER TEMP on 49-16-1120Lvyvimp Test strip (U) [Mass/Vol]Normal mg/dLNormal Community Memorial HospitalHematocrit [Volume Fraction] of Blood by Automated countOrdered By: PROVIDER TEMP on 83-09-8808Mrdnkwrylc (Bld) [Volume fraction]47.0 %High34.0-46.4FLima City HospitalComment on above: Performed By: #### CMP, CBC #### [facility] [address] [place] [address] USAHemoglobin Test strip Ql (U)Ordered By: PROVIDER TEMP on 88-91-6941Ieilzdlakg Ql (U)NegativeNegCenterville Hemoglobin [Mass/volume] in BloodOrdered By: PROVIDER TEMP on 12-03-2024 Hemoglobin (Bld) [Mass/Vol]15.8 g/oTKjby96.8-15.4FLima City HospitalComment on above:Performed By: #### CMP, CBC #### [facility] [address] [place] [address] USAKetones [Presence] in Urine by Test stripOrdered By: PROVIDER TEMP on 69-01-4469Vvijiar Ql (U)NegativeNormalNegCentervilleComment on above:Order Comment: Name Collection Type:: Clean-Voided MidstreamPerformed By: #### UA #### [facility] [address] [place] [address] USALeukocyte esterase [Presence] in Urine by Test strip Ordered By: PROVIDER TEMP on 60-32-7464Zansvsxor esterase Test strip Ql (U) NegativeNormalNegativeCommunity Memorial HospitalComment on above:Order Comment: Name Collection Type:: Clean-Voided MidstreamPerformed By: #### UA #### [facility] [address] [place] [address] USALeukocytes [#/volume] corrected for nucleated erythrocytes in Blood by Automated counOrdered By: PROVIDER TEMP on 77-64-3337PLH corrected for nucl RBC Auto (Bld) [#/Vol]13.7 10*3/uLHigh3.8-11.6FLima City HospitalLeukocytes [#/volume] in Blood by Automated countOrdered By: PROVIDER TEMP on 53-14-7008KKY (Bld) [#/Vol]13.7 10*3/uLHigh3.8-11.6FLima City HospitalComment on above:Performed By: #### CMP, CBC #### [facility] [address] [place] [address] USALymphocytes [#/volume] in Blood by Automated countOrdered By: PROVIDER TEMP on 22-57-4118Kibcdlobiod (Bld) [#/Vol]2.5 10*3/uLNormal 1.00-4.8Community Memorial HospitalComment on above:Performed By: #### CMP, CBC #### [facility] [address] [place], [place] [id number] USALymphocytes/100 leukocytes in Blood by Automated count Ordered By: PROVIDER TEMP on 00-65-4954Owhhzynewps/100 WBC (Bld)18.4 %Normal. [facility] HospitalComment on above:Performed By: #### CMP, CBC #### [place] [address] USAMCH [Entitic mass] by Automated countOrdered By: PROVIDER TEMP on 50-56-3497TKM (RBC) [Entitic mass]31.1 naWmjklc02.7-34.3FLima City HospitalComment on above:Performed By: #### CMP, CBC #### [facility] [address] [place] [address] USAMCHC Auto (RBC) [Mass/Vol]Ordered By: PROVIDER TEMP on 54-49-8998CPGK (RBC) [Mass/Vol]33.7 g/dL32.0-35.0Community Memorial HospitalMCV [Entitic volume] by Automated countOrdered By: PROVIDER TEMP on 10-34-6796EGP (RBC) [Entitic vol]92.4 iVQbjucl62-178BafouebobCommunity Memorial HospitalComment on above:Performed By: #### CMP, CBC #### [facility] [address] [place] [address] USAMonocyte distribution width [Entitic volume] in Blood by AutomatedOrdered By: PROVIDER TEMP on 18-52-9237Hifdrqaj distribution width Auto (Bld) [Entitic vol]16.17 %0.00-20.00Community Memorial HospitalMonocytes [#/volume] in Blood by Automated countOrdered By: PROVIDER TEMP on 12-03-2024 Monocytes (Bld) [#/Vol]1.4 10*3/uLHigh0.0-0.8[facility] Comment on above:Performed By: #### CMP, CBC #### [facility] [address] [place], [place] [address] USAMonocytes/100 leukocytes in Blood by Automated count Ordered By: PROVIDER TEMP on 19-65-6461Tszhhketf/100 WBC (Bld)9.9 %Normal. Community Memorial HospitalComment on above:Performed By: #### CMP, CBC #### [facility] [address] [place] [address] USANeutrophils [#/volume] in Blood by Automated countOrdered By: PROVIDER TEMP on 96-09-3328Afcbfmxgexk (Bld) [#/Vol]8.5 10*3/uLHigh1.8-7.7 [facility] HospitalComment on above:Performed By: #### CMP, CBC #### [facility] [address] [place] [address] USANeutrophils/100 leukocytes in Blood by Automated count Ordered By: PROVIDER TEMP on 46-90-2647Duykevoiohs/100 WBC (Bld)62.2 %Normal. [facility] Memorial HospitalComment on above:Performed By: #### CMP, CBC #### [facility] [address] [place] [address] USANitrite Test strip Ql (U)Ordered By: PROVIDER TEMP on 96-07-8747Lbtskrg Ql (U)NegativeNegativeCommunity Memorial HospitalNo Panel InformationOrdered By: PROVIDER TEMP on 08-41-1562Ekwywjuah GFR (CKD-EPI)> 60.0 mL/MinCommunity Memorial HospitalPharmacy Creatinine Clearance (Chem 88.04Community Memorial HospitalNucleated erythrocytes [Presence] in Blood by Automated countOrdered By: PROVIDER TEMP on 34-80-6281Jnxymijuf RBC Auto Ql (Bld)0.1 /100{WBC}0-0.5FLima City HospitalPlatelet mean volume [Entitic volume] in Blood by Automated countOrdered By: PROVIDER TEMP on 49-26-2501Qokaulca mean volume (Bld) [Entitic vol]8.2 fLNormal6.3-10.7FLima City HospitalComment on above:Performed By: #### CMP, CBC #### [facility] [address] [place] [address] USAPlatelets [#/volume] in Blood by Automated countOrdered By: PROVIDER TEMP on 17-70-1651Jtyfzzjrx (Bld) [#/Vol]375 10*3/qJCggbyq726-034 [facility] HospitalComment on above:Performed By: #### CMP, CBC #### [facility] [address] [place] [address] USAPotassium [Moles/volume] in Serum or PlasmaOrdered By: PROVIDER TEMP on 65-94-9194Dafpmwgxb [Moles/Vol]4.4 mmol/LNormal3.5-5.1FLima City HospitalComment on above:Hemolysis is present at a level that could interfere with the result.Contact lab if redraw is requiredResult Comment: Hemolysis is present at a level that could interfere with the result. Contact lab if redraw is requiredPerformed By: #### CMP, CBC #### [place] [address] USAProtein Test strip (U) [Mass/Vol]Ordered By: PROVIDER TEMP on 56-13-8382Ddfjpvp (U) [Mass/Vol]NegativeNegativeCommunity Memorial HospitalProtein [Mass/volume] in Serum or PlasmaOrdered By: PROVIDER TEMP on 49-36-4360Ewohkic [Mass/Vol]8.0 g/dLNormal6.4-8.9[facility] Memorial HospitalComment on above:Performed By: #### CMP, CBC #### [place] [address] USASerum globulin measurement by calculation (mass/volume) Ordered By: PROVIDER TEMP on 33-61-1883Wpqeupub (S) [Mass/Vol]3.4 g/dLNormal [facility] HospitalComment on above:Performed By: #### CMP, CBC #### [place] [address] USASerum or plasma albumin/globulin mass ratioOrdered By: PROVIDER TEMP on 46-39-6607Uzknmjk/Globulin [Mass ratio]1.4 {ratio}Normal Community Memorial HospitalComment on above:Performed By: #### CMP, CBC #### [place] [address] USASerum or plasma anion gap determinationOrdered By: PROVIDER TEMP on 68-20-0548Ntqbw gap [Moles/Vol]12.1 mmol/LNormal6.0-15.0 [facility] Memorial HospitalComment on above:Performed By: #### CMP, CBC #### [place] [address] USASodium [Moles/volume] in Serum or PlasmaOrdered By: PROVIDER TEMP on 59-10-3418Uzzsoa [Moles/Vol]134 mmol/TBhz613-544QtovammuuCommunity Memorial HospitalComment on above:Performed By: #### CMP, CBC #### [place] [address] USASpecific gravity Test strip (U) [Rel density]Ordered By: PROVIDER TEMP on 46-22-8879Dlfbjipd gravity (U) [Rel density]1.0031.001-1.030 [facility] Memorial HospitalUrea nitrogen [Mass/volume] in Serum or Plasma Ordered By: PROVIDER TEMP on 71-44-3257Zikz nitrogen [Mass/Vol]7 mg/dLNormal01-02 Community Memorial HospitalComment on above:Performed By: #### CMP, CBC #### [place] [address] USAUrinalysison 21-33-9273Thmcanobz,UrineNegativeNormal NegativeWellington Regional Medical Center Physician GroupComment on above:Order Comment: Name Collection Type:: Clean-Voided MidstreamPerformed By: #### UA #### [place] [address] USAGlucose Ql (U)NormalNormalNormalThe [facility] Physician GroupComment on above:Order Comment: Name Collection Type:: Clean-Voided MidstreamPerformed By: #### UA #### [place] [address] USANitrite,UrineNegativeNormalNegativeWellington Regional Medical Center Physician GroupComment on above:Order Comment: Name Collection Type:: Clean-Voided MidstreamPerformed By: #### UA #### [place] [id number] USAOccult Blood,UrineNegativeNormalNegativeThe [facility] Physician GroupComment on above:Order Comment: Name Collection Type:: Clean- Voided MidstreamResult Comment: PERFORMED BY: [place] [address] PATHOLOGIST WILDLIFE TECHNICIAN ALISSA ADLER M.D.Performed By: #### UA #### [place] [address] USAProtein,UrineNegativeNormalNegativeThe [facility] Physician GroupComment on above:Order Comment: Name Collection Type:: Clean-Voided MidstreamPerformed By: #### UA #### [facility] [address] [place] [address] USASpecificy [place],Urine1.157Ehpcay0.001-1.030The [facility] Physician GroupComment on above:Order Comment: Name Collection Type:: Clean- Voided MidstreamPerformed By: #### UA #### [place] [address] USAUrobilinogen,UrineNormalNormalNormalThe [facility] Physician GroupComment on above:Order Comment: Name Collection Type:: Clean- Voided MidstreamPerformed By: #### UA #### [place] [address] USAUrobilinogen Test strip (U) [Mass/Vol]Ordered By: PROVIDER TEMP on 63-80-3599Vqvtftpndtet (U) [Mass/Vol]Normal mg/dLNormOhio State Health SystempH of Urine by Test stripOrdered By: PROVIDER TEMP on 84-18-7464nP (U)5.0 [pH]Normal5.0-9.0Community Memorial HospitalComment on above:Order Comment: Name Collection Type:: Clean-Voided MidstreamPerformed By: #### UA #### [place] [address] USABasic Metabolic Panelon 59-76-2084FNF/1.73 sq M.predicted MDRD (S/P/Bld) [Vol rate/Area]mL/min/{1.73_m2}NormalThe [facility] Physician GroupComment on above:Performed By: #### BMP, CBC #### [place] [address] USABasic metabolic 1998 panelon 56-13-2661Yhqmh gap [Moles/Vol]12.4 mmol/L6.0 - 15.0 meq/LNOMS HealthcareCalcium [Mass/Vol]9.3 mg/dL 8.6 - 10.3 mg/dLNOMS HealthcareChloride [Moles/Vol]107 mmol/L98 - 107 mmol/LNOMS HealthcareCO2 [Moles/Vol]22.8 mmol/L21.0 - 31.0 mmol/LNOMS HealthcareCreatinine (U) [Mass/Vol]0.64 mg/dL0.60 - 1.20 mg/dLNOMS HealthcareESTIMATED GFRmL/MinNOMS HealthcareGlucose [Mass/Vol]97 mg/dL70 - 100 mg/dLNOWV HealthcareComment on above:Random Glucose Reference Range is dependent on time and content of last meal. Glucose of more than 200 mg/dL in a nonstressed, ambulatory subject supports the diagnosis of Diabetes Mellitus. ADA recommended reference range Potassium [Moles/Vol]4.2 mmol/L3.5 - 5.1 mmol/LNOMS HealthcareSodium [Moles/Vol] 138 mmol/L136 - 145 mmol/LNOMS HealthcareUrea nitrogen [Mass/Vol]12 mg/dL7 - 25 mg/dLNOMS HealthcareNOMS HealthcareBasophils [#/volume] in Blood by Automated countOrdered By: Kilo Beasley on 15-15-0340Sgbivspbf (Bld) [#/Vol]0.1 10*3/uL Normal0.0-0.2FLima City HospitalComment on above:Result Comment: PERFORMED BY: [place] [address] PATHOLOGIST WILDLIFE TECHNICIAN ALISSA ADLER M.D.Performed By: #### BMP, CBC #### [facility] [address] [place] [address] USABasophils/100 leukocytes in Blood by Automated count Ordered By: Kilo Beasley on 41-11-0955Cbflunhfd/100 WBC (Bld)0.7 %Normal. Community Memorial HospitalComment on above:Performed By: #### BMP, CBC #### [place] [address] USACB W Auto Differential panel (Bld)on 79-94-3365Brrwxxfev (Bld) [#/Vol]0.1 10*3/uL0.0 - 0.2 10*3/uLNOMS HealthcareBasophils/100 WBC Manual cnt (Syn fld)0.7 %.NOMS HealthcareEosinophils (Bld) [#/Vol]0.5 10*3/uLHigh0.0 - 0.45 10*3/uLNOWV HealthcareEosinophils/100 WBC Manual cnt (Syn fld)4.3 %.[facility] Medical CenterErythrocyte distribution width (RBC) [Ratio]13.8 %11.9 - 15.3 %[facility] CenterHematocrit (Bld) [Volume fraction]41.8 %34.0 - 46.4 %[facility] Hemoglobin (Bld) [Mass/Vol]14.3 g/dL11.8 - 15.4 g/dLKansas City VA Medical Center Interpretation and review of laboratory resultsAbnormalKansas City [facility] Medical Center Lymphocytes (Bld) [#/Vol]2.4 10*3/uL1.00 - 4.8 10*3/uLNOWV Healthcare Lymphocytes/100 WBC Manual cnt (Syn fld)20.7 %.[facility] CareH (RBC) [Entitic mass]31.8 pg24.7 - 34.3 pgUniversity of Missouri Health CareHC (RBC) [Mass/Vol]34.2 g/dL32.0 - 35.0 g/dLUniversity of Missouri Health CareV (RBC) [Entitic vol]93.1 fL80 - 100 fLKansas City VA Medical Center Monocytes (Bld) [#/Vol]1.3 10*3/uLHigh0.0 - 0.8 10*3/uLNOSaint Luke's [facility] Monocytes+Macrophages/100 WBC Manual cnt (Syn fld)10.8 %.[facility] Neutrophils (Bld) [#/Vol]7.3 10*3/uL1.8 - 7.7 10*3/uLNOWV Healthcare Neutrophils/100 WBC Manual cnt (Syn fld)63.5 %.[facility] Medical CenterNRBC0.1 /100{WBC}0 - 0.5 /100{WBC}[facility] CenterPlatelet mean volume (Bld) [Entitic vol]8.7 fL6.3 - 10.7 fLLAKEVIEW HOSPITAL HealthcarePlatelets (Bld) [#/Vol]298 10*3/uL150 - 450 10*3/uLNOSaint Luke's North Hospital–Barry RoadRBC LM.HPF (Urine sed) [#/Area]4.49 10*6/uL3.60 - 5.00 10*6/uLNOMS HealthcareWBC (Bld) [#/Vol]11.6 10*3/uL3.8 - 11.6 10*3/uLNOMS HealthcareWBC LM.HPF (Urine sed) [#/Area]11.6 10*3/uL3.8 - 11.6 10*3/uLNOMS HealthcareNOMS HealthcareCalcium [Mass/volume] in Serum or PlasmaOrdered By: Kilo Beasley on 59-37-6866Cpemxor [Mass/Vol]9.3 mg/dLNormal8.6-10.3FLima City HospitalComment on above:Result Comment: PERFORMED BY: [place] [address] PATHOLOGIST WILDLIFE TECHNICIAN ALISSA ADLER M.D.Performed By: #### BMP, CBC #### [place] [address] USACarbon dioxide, total [Moles/volume] in Serum or Plasma Ordered By: Kilo Beasley on 52-53-3181ZS8 [Moles/Vol]22.8 mmol/LNormal 21.0-31.0Community Memorial HospitalComment on above:Performed By: #### BMP, CBC #### [place] [address] USAChloride [Moles/volume] in Serum or PlasmaOrdered By: Kilo Beasley on 46-02-2753Lkhbudvo [Moles/Vol]107 mmol/FCtltfb39-405AdysaqrrwCommunity Memorial HospitalComment on above:Performed By: #### BMP, CBC #### [facility] [address] [place] [address] USAComplete Blood Count Auto Diffon 34-16-9485Zsrh Corpuscular HGB Conc34.2 g/nFMmpsno18.0-35.0The [facility] Physician GroupComment on above:Performed By: #### BMP, CBC #### [place] [address] USANRBC%0.1 /100{WBC}Normal0-0.5The [facility] Comment on above:Performed By: #### BMP, CBC #### [facility] [address] [place] [address] USACreatinine [Mass/volume] in Serum or PlasmaOrdered By: Kilo Beasley on 00-05-5909Emtglfffgo [Mass/Vol]0.64 mg/dLNormal0.60-1.20 [facility] Memorial HospitalComment on above:Performed By: #### BMP, CBC #### [facility] [address] [place] [id number] USAECG 12 lead ECGon 74-70-8145YPX 12 lead ECGMERCY HEALTH [facility]ARD [facility] [place] [address] [place], [place] [address] Electrocardiograph Report Signed Patient: Shefali Tillman MR#: [id number] 187 : 1970 Acct:[id number] Age/Sex: 54 / F ADM Date: 11/21/24 Loc: Room: Type: [facility] Attending Dr: Kilo Beasley DO Ordering Provider: Kilo Beasley DO Date of Service: 11/21/24 ECG/ECG 12 lead ECG: surgery 11/28/2024 Copies to: Test Reason : Blood Pressure : */* mmHG Vent. Rate : 64 BPM Atrial Rate : 64 BPM P-R Int : 152 ms QRS Dur : 94 ms QT Int : 424 ms P-R-T Axes : 33 32 20 degrees QTcB Int : 437 ms Normal sinus rhythm Normal ECG When compared with ECG of 02-Jul-2022 19:10, No significant change was found Confirmed by ISABEL WOODS [facility] ([id number]) on 11/21/2024 3:54:39 PM Referred By: Electronically Signed By: DEUCE HALL MD [facility] Transcribed By: MUS Signed By Deuce Hall MD, [facility] 11/21/24 1554[facility] Physician GroupEosinophils [#/volume] in Blood by Automated countOrdered By: Kilo Beasley on 01-95-8453Xisrotijsqc (Bld) [#/Vol]0.5 10*3/uLHigh0.0-0.45Community Memorial HospitalComment on above: Performed By: #### BMP, CBC #### [facility] [address] [place] [address] USAEosinophils/100 leukocytes in Blood by Automated count Ordered By: Kilo Beasley on 65-98-2957Wpqcjhiokif/100 WBC (Bld)4.3 %Normal. [facility] Memorial HospitalComment on above:Performed By: #### BMP, CBC #### [facility] [address] [place] [address] USAErythrocyte distribution width [Ratio] by Automated count Ordered By: Kilo Beasley on 63-91-1638Evfdjtvdvbw distribution width (RBC) [Ratio]13.8 %Punedq29.9-15.3FLima City HospitalComment on above: Performed By: #### BMP, CBC #### [facility] [address] [place] [address] USAErythrocytes [#/volume] in Blood by Automated countOrdered By: Kilo Beasley on 31-67-7582PWI (Bld) [#/Vol]4.49 10*6/uLNormal3.60-5.00 [facility] Memorial HospitalComment on above:Performed By: #### BMP, CBC #### [place] [address] USAGlucose [Mass/volume] in Serum or PlasmaOrdered By: Kilo Beasley on 27-47-6782Grhwinq [Mass/Vol]97 mg/bKXreopk53-607LhkkdbnmuCommunity Memorial HospitalComment on above:ADA recommended reference rangeRandom Glucose Reference Range is dependent on time and content of last meal. Glucose of more than 200 mg/dL in a nonstressed, ambulatory subject supports the diagnosisof Diabetes Mellitus.Result Comment: Random Glucose Reference Range is dependent on time and content of last meal. Glucose of more than 200 mg/dL in a nonstressed, ambulatory subject supports the diagnosis of Diabetes Mellitus. ADA recommended reference rangePerformed By: #### BMP, CBC #### [place] [address] USAHematocrit [Volume Fraction] of Blood by Automated count Ordered By: Kilo Beasley on 62-42-1187Nrsyqoikmd (Bld) [Volume fraction]41.8 %Zxshvs46.0-46.4FLima City HospitalComment on above:Performed By: #### BMP, CBC #### [facility] [address] [place] [address] USAHemoglobin [Mass/volume] in BloodOrdered By: Kilo Beasley on 41-47-2810Yhdeoefatw (Bld) [Mass/Vol]14.3 g/kGZtahno53.8-15.4FLima City HospitalComment on above:Performed By: #### BMP, CBC #### [facility] [address] [place] [address] USALeukocytes [#/volume] corrected for nucleated erythrocytes in Blood by Automated counOrdered By: Kilo Beasley on 92-37-9212LZU corrected for nucl RBC Auto (Bld) [#/Vol]11.6 10*3/uL3.8-11.6FLima City HospitalLeukocytes [#/volume] in Blood by Automated countOrdered By: Kilo Beasley on 75-43-8274IHA (Bld) [#/Vol]11.6 10*3/uLNormal3.8-11.6 [facility] HospitalComment on above:Performed By: #### BMP, CBC #### [place] [address] USALymphocytes [#/volume] in Blood by Automated countOrdered By: Kilo Beasley on 33-99-6616Zwdvgqjajmo (Bld) [#/Vol]2.4 10*3/uLNormal 1.00-4.8Community Memorial HospitalComment on above:Performed By: #### BMP, CBC #### [facility] [address] [place] [address] USALymphocytes/100 leukocytes in Blood by Automated count Ordered By: Kilo Beasley on 50-49-5694Agvfazvkpsq/100 WBC (Bld)20.7 %Normal. [facility] Memorial HospitalComment on above:Performed By: #### BMP, CBC #### [facility] [address] [place] [address] USAMCH [Entitic mass] by Automated countOrdered By: Kilo Beasley on 52-99-7264BAC (RBC) [Entitic mass]31.8 jiKmkeca36.7-34.3FLima City HospitalComment on above:Performed By: #### BMP, CBC #### [facility] [address] Auto (RBC) [Mass/Vol]Ordered By: Kilo Beasley on 50-23-8487UFHA (RBC) [Mass/Vol]34.2 g/dL32.0-35.0[facility] HospitalV [Entitic volume] by Automated countOrdered By: Kilo Beasley on 92-54-2999QLZ (RBC) [Entitic vol]93.1 gETnfhpg34-774QsfrtdfruCommunity Memorial HospitalComment on above:Performed By: #### BMP, CBC #### [place] [address] USAMonocytes [#/volume] in Blood by Automated countOrdered By: Kilo Beasley on 47-92-9382Ctpapxgvl (Bld) [#/Vol]1.3 10*3/uLHigh0.0-0.8 [facility] HospitalComment on above:Performed By: #### BMP, CBC #### [facility] [address] [place] [address] USAMonocytes/100 leukocytes in Blood by Automated count Ordered By: Kilo Beasley on 39-88-6324Bxnctqxqo/100 WBC (Bld)10.8 %Normal. [facility] Memorial HospitalComment on above:Performed By: #### BMP, CBC #### [facility] [address] [place] [address] USANeutrophils [#/volume] in Blood by Automated countOrdered By: Kilo Beasley on 22-75-8469Esbzlvvjlim (Bld) [#/Vol]7.3 10*3/uLNormal 1.8-7.7FLima City HospitalComment on above:Performed By: #### BMP, CBC #### [place] [address] USANeutrophils/100 leukocytes in Blood by Automated count Ordered By: Kilo Beasley on 98-56-3893Ngbggpjehwy/100 WBC (Bld)63.5 %Normal. [facility] Memorial HospitalComment on above:Performed By: #### BMP, CBC #### [facility] [address] [place] [address] USANo Panel InformationOrdered By: Kilo Beasley on 81-21-4132Qqrsshnqm GFR (CKD-EPI)> 60.0 mL/MinCommunity Memorial Hospital Pharmacy Creatinine Clearance (ChemN/AFLima City HospitalNucleated erythrocytes [Presence] in Blood by Automated countOrdered By: Kilo Beasley on 94-74-8483Megottgel RBC Auto Ql (Bld)0.1 /100{WBC}0-0.5FLima City HospitalPlatelet mean volume [Entitic volume] in Blood by Automated count Ordered By: Kilo Beasley on 04-21-3659Ruwsypfa mean volume (Bld) [Entitic vol]8.7 fLNormal6.3-10.7FLima City HospitalComment on above: Performed By: #### BMP, CBC #### [facility] [address] [place] [address] USAPlatelets [#/volume] in Blood by Automated countOrdered By: Kilo Beasley on 24-00-2087Gyjhfnkum (Bld) [#/Vol]298 10*3/rOKxljrx013-749 [facility] Memorial HospitalComment on above:Performed By: #### BMP, CBC #### [facility] [address] [place] [id number] USAPotassium [Moles/volume] in Serum or PlasmaOrdered By: Kilo Beasley on 33-65-1513Xkvbjjsgt [Moles/Vol]4.2 mmol/LNormal3.5-5.1 [facility] Memorial HospitalComment on above:Performed By: #### BMP, CBC #### [facility] [address] [place] [address] USASerum or plasma anion gap determinationOrdered By: Kilo Beasley on 33-63-5198Uqilh gap [Moles/Vol]12.4 mmol/LNormal6.0-15.0 [facility] Memorial HospitalComment on above:Performed By: #### BMP, CBC #### [facility] [address] [place] [address] USASodium [Moles/volume] in Serum or PlasmaOrdered By: Kilo Beasley on 46-43-2258Vtwczi [Moles/Vol]138 mmol/JCfqmhm840-464LwrmaphhfCommunity Memorial HospitalComment on above:Performed By: #### BMP, CBC #### [facility] [address] [place] [address] USAUrea nitrogen [Mass/volume] in Serum or PlasmaOrdered By: Kilo Beasley on 78-73-0174Igkn nitrogen [Mass/Vol]12 mg/dLNormal7-25Community Memorial HospitalComment on above:Performed By: #### BMP, CBC #### [facility] [address] [place] [id number] USALon 10-24-2024L Specimen: [id number] Received: 10/24/24 Status: CHOLO Rodriguez Num: [id number] Spec Type: Surgical Subm Dr: Ethan Burt MD Tissues: A Colon Biopsy (SIGMOID COLON POLYPS) B Colon Biopsy (RECTAL POLYPS) Procedures: HE/Jossie, Gross/Micro L4/2 Age/ Patient Sex Location Account Attending Physician Shefali Tillman 54/[facility] [id number] Ethan Burt MD SPEC NUM: [id number] RECD: 10/24/24 STATUS: CHOLO MICHAEL NUM: [id number] MALIA: 10/24/24-[address] [facility] [address]: Ethan Burt MD ENTERED: 10/24/[address] [facility] [address]: DONTAE TYPE: Surgical DEPT: S ENTERED BY: [id number] RECV BY: [id number] ORDERED: HE/4, Gross/Micro L4/2 ORDERED: HE/4, Gross/Micro L4/2 Pathological Diagnosis A. Colon, sigmoid, polypectomy: - Hyperplastic polyp. B. Rectum, polypectomy: - Traditional serrated adenoma. - No evidence of dysplasia identified. Clinical Information History colon polyps Gross Description Part A is received in formalin labeled with the patients name, date of , and sigmoid colon polyp is a berkowitz-byrd, focally erythematous, friable, 0.8 cm in greatest dimension polypoid strip. The specimen is entirely submitted in a single cassette. (1, ns, [id number] A) Part B is received in formalin labeled with the patients name, date of , and rectal polyp are berkowitz-byrd, focally erythematous, friable polypoid fragments, 2 x 1.4 x 0.3 cm in aggregate. The specimen is filtered and entirely submitted in a single cassette. (1, ns, [id number] B) Specimen: [id number] Received: 10/24/24 Status: CHOLO Rodriguez Num: [id number] Spec Type: Surgical Subm Dr: Ethan Burt MD Tissues: A Colon Biopsy (SIGMOID COLON POLYPS) B Colon Biopsy (RECTAL POLYPS) Procedures: BHARATH/Jossie, Ever/Dino L4/2 Patient: Shefali Tillman [id number] (Continued) Specimen: [id number] Received: 10/24/24 (Continued) Signed (signature on file) Naun Wheat MD 10/27/24 1055 Specimen: [id number] Received: 10/24/24 Status: CHOLO Rodriguez Num: [id number] Spec Type: Surgical Subm Dr: Ethan Burt MD Tissues: A Colon Biopsy (SIGMOID COLON POLYPS) B Colon Biopsy (RECTAL POLYPS) Procedures: HE/4, Gross/Micro L4/2 Patient: Shefali Tillman [id number] (Continued) Specimen: [id number] Received: 10/24/24 (Continued) Microscopic Description A B: Microscopic examination is performed. CPT Codes 32413 x2 Specimen: [id number] Received: 10/24/24 Status: CHOLO Rodriguez Num: [id number] Spec Type: Surgical Subm Dr: Ethan Burt MD Tissues: A Colon Biopsy (SIGMOID COLON POLYPS) B Colon Biopsy (RECTAL POLYPS) Procedures: HE/4, Gross/Micro L4/2 Patient: Shefali Tillman [id number] (Continued) Signed (signature on file) Naun Wheat MD 10/27/24 1055NormJoe [facility] head/brain wo conon 35-76-2975KU head/[place] [address] MRI Report Signed Patient: Shefali Tillman MR#: [id number] : 1970 Acct:[id number] Age/Sex: 54 / F ADM Date: 08/18/24 Loc: MR Room: Type: [facility] Attending Dr: Destiny Anders APRN Copies to: Destiny Anders APRN Ordering Provider: Destiny Anders APRN Date of Service: 08/18/24 MR/MR head/brain wo con: R20.0,R20.2 EXAMINATION: MRI OF THE BRAIN WITHOUT CONTRAST CLINICAL HISTORY: Right-sided paresthesias COMPARISON: 07/03/2022 TECHNIQUE: Multiecho, multiplanar imaging of the brain was performed without enhancement. FINDINGS: No restricted diffusion. Mild central involutional changes of brain parenchyma with prominence of the ventricles and sulci. Mild periventricular and scattered subcortical T2 prolongation identified similar in distribution to the prior examination suggestive of chronic small vessel ischemic disease. Major intracranial arterial vascular flow voids are preserved. No abnormal GRE signal. Degenerative changes of the cervical spine C4-C5 with suspected left sided disc osteophyte complex MR/MR head/brain wo con IMPRESSION: Stable mild burden of chronic microvascular changes. Negative acute intracranial process by MRI. Impression dictated by: Supa Melgoza M.D.08/19/2024 8:58 AM Dictation Location: [place] [address] Transcribed By: [facility] 08/19/24 0858 Dictated By: Supa Melgoza MD 08/19/24 0849 Signed By: 08/19/24 0858[facility] Physician GroupAbrazo Arrowhead Campusetic resonance imaging reportOrdered By: Supa Melgoza on 00-12-4241Umvvo reportMERCY HEALTH WILLARD [facility]OSPITAL [place] [address] [place] [address] MRI Report Signed Patient: Shefali Tillman MR#: [id number] : 1970 Acct:[id number] Age/Sex: 54 / F ADM Date: 5 Loc: MR Room: Type: [facility] Attending Dr: Destiny Anders APRN Copies to: Destiny Anders APRN~ Ordering Provider: Destiny Anders APRN Date of Service: 08/18/24 MR/MR head/brain wo con: R20.0,R20.2 EXAMINATION: MRI OF THE BRAIN WITHOUT CONTRAST CLINICAL HISTORY: Right-sided paresthesias COMPARISON: 07/03/2022 TECHNIQUE: Multiecho, multiplanar imaging of the brain was performed without enhancement. FINDINGS: No restricted diffusion. Mild central involutional changes of brain parenchyma with prominence of the ventricles and sulci. Mild periventricular and scattered subcortical T2 prolongation identified similar in distribution to the prior examination suggestive of chronic small vessel ischemic disease. Major intracranial arterial vascular flow voids are preserved. No abnormal GRE signal. Degenerative changes of the cervical spine C4-C5 with suspected left sided disc osteophyte complex MR/MR head/brain wo con IMPRESSION: Stable mild burden of chronic microvascular changes. Negative acute intracranial process by MRI. Impression dictated by: Supa Melgoza M.D.08/19/2024 8:58 AM Dictation Location: [place] [address] Transcribed By: [facility] 08/19/24857 Dictated By: Supa Melgoza MD 08/19/2449 Signed By: 08/19/2458 [facility] Work Phone: emg 2 Extremitieson 91-99-6296ERG/NCS BUE Normal studyPemiscot [facility] HealthcareNVC 04-22 Nerveson 40-52-1920ATV/NCS BUE Normal [facility] HealthcareInfluenza virus B Ag [Presence] in Upper respiratory specimen by Rapid immunoassayon 31-94-5303IWPHB Ag IA.rapid Ql (Nph)Influenza virus B Ag [Presence] in Upper respiratory specimen by Rapid immunoassayCommunity Memorial HospitalNo Panel Informationon 06-19-2024 Influenza Type A (Rapid)NegativeCommunity Memorial HospitalPO SARS CoV-2 AntigenNegativeCommunity Memorial HospitalNo Panel InformationOrdered By: Mag Perry on 96-81-2862Alnnu Strep (POC)[facility] Quick Strep (POC)[facility] HospitalURGICAL PATHOLOGY REFERENCE LAB CONSULTon 87-39-9487ZJCQ REPORTNormalCMcKitrick Hospital on above:Order Comment: Specimen Type: FORMALIN-FIXED PARAFFIN-EMBEDDED TISSUE SPECIMEN Ordering Facility: [facility] Address: [address] [place] [address] [place], [place] [address]Lqdwrz Comment: Surgical Pathology Report Case: [id number] Authorizing Provider: Ethan Burt MD Collected: 04/25/2024 12:27 PM Ordering Location: [facility] Main Received: 04/25/2024 12:26 PM [facility] Pathologist: Colton Zapien MD Specimen: Slide(s), 11 SLIDES ([id number])Performed By: #### [id number] #### [facility] CLIA [id number] [address] [address] [place] OF AMERICACLINICAL HISTORYCONSULT REQUESTEDNoChillicothe VA Medical Center on above:Order Comment: Specimen Type: FORMALIN-FIXED PARAFFIN-EMBEDDED TISSUE SPECIMEN Ordering Facility: [facility] Address: [place], [place] [address]Lwllhvoze By: #### [id number] #### [facility] CLIA [id number] [address] [place] [address] [place] STATES OF AMERICADIAGNOSIS COMMENTNormal [facility] on above:Order Comment: Specimen Type: FORMALIN-FIXED PARAFFIN-EMBEDDED TISSUE SPECIMEN Ordering Facility: [facility] Address: [address] [place], [place] [address], [place] [address]Teczvi Comment: Thank you for allowing us the opportunity to review this case in consultation representing ascending colon polyp from a 54-year-old female. The sections reveal serrated polyp with crypts showing basal dilatation, most consistent with sessile serrated polyp. Thank you for sending this case in consultation. Please do not hesitate to contact the GI Consultation Service at [phone] with questions or if additional follow up information becomes available.Performed By: #### [id number] #### [facility] CLIA [id number] [address] [place], [place] [id number] [place] STATES OF MAGRUDER MEMORIAL HOSPITALFINAL DIAGNOSISNormal [facility] on above:Order Comment: Specimen Type: FORMALIN-FIXED PARAFFIN-EMBEDDED TISSUE SPECIMEN Ordering Facility: [facility] Address: [place], [place] [address]Ltcglk Comment: Ascending colon polyp, polypectomy (C1, C2): - Sessile serrated polyp. Performed By: #### [id number] #### [facility] CLIA [id number] [address] [place] [address] [place] STATES OF AMERICAFINAL PERFORMING LABNormal [facility] ClevelandComment on above:Order Comment: Specimen Type: FORMALIN-FIXED PARAFFIN-EMBEDDED TISSUE SPECIMEN Ordering Facility: [facility] Address: [place] [address]Uotxjw Comment: Diagnostic interpretation performed at: [facility], [address] [place] [address], Desk [address] [address] CLIA# [id number] Mineral Resources Inspector: FERNANDO Chaconerformed By: #### [id number] #### [facility] CLIA [id number] [address] [place] [address] [address] [place] OF AMERICAPathology study report documentOrdered By: Naun Wheat on 73-29-9206Hxlxuvixx [facility] Other lon 04-18-2024L Specimen: [id number] Received: 04/18/24 Status: CHOLO Rodriguez Num: [id number] Spec Type: Surgical Subm Dr: Ethan Burt MD Tissues: A GASTRIC FOR HP (GASTRIC BX R/O H PYLORI) B Esophagus Biopsy (ESOPHAGUS BX RO FRANK'S) C Colon Biopsy (ASCENDING COLON POLYP) D Colon Biopsy (SIGMOID POLYPS) E Colon Biopsy (RECTAL POLYPS) Procedures: /14, Gross/Micro L4/5, H PYLORI Age/ Patient Sex Location Account Attending Physician Shefali Tillman 54/F [id number] Ethan Burt MD SPEC NUM: [id number] RECD: 04/18/24 STATUS: CHOLO RODRIGUEZ NUM: [id number] MALIA: 04/18/[address] [facility] [address]: Ethan Burt MD ENTERED: 04/18/[address] [facility] [address]: DONTAE TYPE: Surgical DEPT: S ENTERED BY: [id number] RECV BY: [id number] ORDERED: HE/14, Gross/Micro L4/5, H PYLORI ORDERED: HE/14, Gross/Micro L4/5, H PYLORI Supplemental Report Addendum 1 Entered: 05/07/242650 This case was sent to [facility] for consultation. Their diagnosis is as follows: -Ascending colon polyp, polypectomy: Sessile serrated polyp. Please see attached consultation report from [facility] for diagnostic details. Addendum Signed (signature on file) Melvin Alvarado MD 05/07/24 3791 Pathological Diagnosis A. Stomach, biopsy: - Antral and oxyntic-type gastric mucosa with moderate chronic inactive gastritis. - No evidence of dysplasia or malignancy identified - Helicobacter pylori microorganisms identified with immunohistochemical stain. Specimen: [id number] Received: 04/18/24 Status: CHOLO Rodriguez Num: [id number] Spec Type: Surgical Subm Dr: Etahn Burt MD Tissues: A GASTRIC FOR HP (GASTRIC BX R/O H PYLORI) B Esophagus Biopsy (ESOPHAGUS BX RO FRANK'S) C Colon Biopsy (ASCENDING COLON POLYP) D Colon Biopsy (SIGMOID POLYPS) E Colon Biopsy (RECTAL POLYPS) Procedures: /, Gross/Micro L4/5, H PYLORI Patient: OneilShefali Morris [id number] (Continued) Specimen: [id number] Received: 04/18/24 (Continued) Pathological Diagnosis (Continued) Signed (signature on file) Naun Wheat MD 04/24/24 1118 Specimen: [id number] Received: 04/18/24 Status: CHOLO Rodriguez Num: [id number] Spec Type: Surgical Subm Dr: Ethan Burt MD Tissues: A GASTRIC FOR HP (GASTRIC BX R/O H PYLORI) B Esophagus Biopsy (ESOPHAGUS BX RO FRANK'S) C Colon Biopsy (ASCENDING COLON POLYP) D Colon Biopsy (SIGMOID POLYPS) E Colon Biopsy (RECTAL POLYPS) Procedures: , Gross/Micro L4/5, H PYLORI Patient: Shefali Tillman [id number] (Continued) Specimen: [id number] Received: 04/18/24 (Continued) Pathological Diagnosis (Continued) B. Esophagus, biopsy: - Gastroesophageal junctional mucosa consistent with reflux esophagitis - No evidence of intestinal metaplasia/Frank's type mucosa, dysplasia or malignancy identified. C. Colon, ascending, polypectomy: - Fragments of hyperplastic polyp. D. Colon, sigmoid, polypectomy: - Fragments of hyperplastic polyp. E. Rectum, polypectomy: - Fragments of hyperplastic polyp. Clinical Information GERD Gross Description A. Received in formalin labeled GASTRIC BX are three berkowitz-byrd, focally erythematous, friable, 0.2 to 0.3 cm tissue bits. The specimen is entirely submitted in a single cassette. (1, ns, [id number] A) JG B. Received in formalin labeled esophagus BX is a pale byrd, focally erythematous, feathery, 0.3 cm tissue bit. The specimen is entirely submitted in a single cassette. (1, ns, [id number] B) JG C. Received in formalin labeled ascending colon are 7 berkowitz-byrd, focally erythematous, friable, 0.2 to 0.7 cm polypoid fragments with adherent vegetative material. The largest specimen is inked black at the apparent point of attachment, trisected, and entirely submitted in cassette C1 with the remainder of the polyps submitted in cassette C2. The vegetative material is retained. (2, ns, [id number] C) (more content not included)...NormalThe [facility] Physician GroupALL FOLIC ACIDon 99-81-8908UXLFND 35.50 ng/mL8.60 - 58.90 ng/mLNOMS HealthcareAlbumin [Mass/volume] in Serum or Plasmaon 17-06-4871Wtkzttb [Mass/Vol]Albumin [Mass/volume] in Serum or Plasma 2.9-4.4FLima City HospitalBasophils/100 WBC Manual cnt (Bld)on 08-48-9337Lrmhldhkm/100 WBC (Bld)Basophils/100 leukocytes in Blood by Manual countLow0.2-2.0[facility] HospitalBorrelia burgdorferi IgG+IgM Ab [Presence] in Serum by Immunoassayon 2024. burgdorferi IgG+IgM IA Ql (S) Borrelia burgdorferi IgG+IgM Ab [Presence] in Serum by ImmunoassayNegative Community [facility] HospitalComment on above:Lyme antibodies not detected. Reflex testing is notindicated.No laboratory evidence of infection with B. burgdorferi(Lyme disease). Negative results may occur in patientsrecently infected (less than or equal to 14 days) with B.burgdorferi. If recent infection is suspected, repeattesting on a new sample collected in 7 to 14 days isrecommended.Performed at: [address] [id number] Director: Davy Abbott PhD, Phone: [phone] VITAMIN B12on 92-45-3833Yblkdojgv (Vitamin B12) [Mass/Vol]265.0 pg/mL193.0 - 986.0 pg/mLNOMS HealthcareCholesterol in LDL Calc [Mass/Vol]on 59-18-3306Monewhohpvk in LDL [Mass/Vol]Cholesterol in LDL [Mass/volume] in Serum or Plasma by calculation [facility] HospitalComment on above:<100 mg/dl ERQNOTV380-761 mg/dl NEAR OR ABOVE WWSZPUD828-595 mg/dl BORDERLINE YPEW050-666 mg/dl HIGH>190 mg/dl VERY HIGHCholesterol in VLDL Calc [Mass/Vol]on 42-08-7159Vknueohotgh in VLDL [Mass/Vol]Cholesterol in VLDL [Mass/volume] in Serum or Plasma by calculationCommunity Memorial HospitalEosinophils/100 WBC Manual cnt (Bld) on 29-07-3316Rtrztyqfuer/100 WBC (Bld)Eosinophils/100 leukocytes in Blood by Manual count0.9-7.0[facility] HospitalErythrocyte distribution width Auto (RBC) [Ratio]on 39-83-5543Brckkfvaliw distribution width (RBC) [Ratio]Erythrocyte distribution width [Ratio] by Automated count11.0-15.0 [facility] HospitalEstimated glomerular filtration rate (GFR) non- Americanon 75-11-6820MCS/1.73 sq M.predicted among non-blacks MDRD (S/P/Bld) [Vol rate/Area]Estimated glomerular filtration rate (GFR) non->=60[facility] HospitalGlobulin Calc (S) [Mass/Vol]on 38-43-6816Opgvgmvn (S) [Mass/Vol]Serum globulin measurement by calculation (mass/volume)[facility] HospitalHematocrit Auto (Bld) [Volume fraction]on 23-33-4917Fvvtsqeopv (Bld) [Volume fraction]Hematocrit [Volume Fraction] of Blood by Automated count36.0-48.0[facility] Hemoglobin [Mass/volume] in Bloodon 60-30-1807Mlfsyiyaqp (Bld) [Mass/Vol] Hemoglobin [Mass/volume] in Blood12.0-16.0[facility] HospitalIron binding capacity [Mass/volume] in Serum or Plasmaon 19-72-6155Wksk binding capacity [Mass/Vol]Iron binding capacity [Mass/volume] in Serum or Plasma 250.0-450.0[facility] HospitalIron saturation [Mass Fraction] in Serum or Plasmaon 36-95-7737Zqzb saturation [Mass fraction]Iron saturation [Mass Fraction] in Serum or PlasmaCommunity Memorial HospitalLaboratory - Chemistry and Chemistry - challengeon 85-89-9583Zyjffen [Mass/Vol]3.7 g/dL 3.4-5.0[facility] HospitalALP [Catalytic activity/Vol]92 U/L46-116 [facility] HospitalALT [Catalytic activity/Vol]40 U/L14-59 [facility] HospitalAST [Catalytic activity/Vol]24 U/L15-37 [facility] HospitalBilirubin [Mass/Vol]0.4 mg/dL0.2-1.0[facility] HospitalCalcium [Mass/Vol]9.2 mg/dL8.5-10.1FLima City HospitalChloride [Moles/Vol]102 mmol/V31-672OezpmdhwuCommunity Memorial HospitalCholesterol [Mass/Vol]189 mg/dL<=200[facility] Cholesterol in HDL [Mass/Vol]43 mg/sU50-61ZagrajnqyCommunity Memorial Hospital Comment on above:> or =60 mg/dl - LOW CARDIOVASCULAR RISK<40 mg/dl - HIGH CARDIOVASCULAR RISKCO2 [Moles/Vol]23.5 mmol/L21.0-32.0[facility] HospitalCobalamin (Vitamin B12) [Mass/Vol]265.0 pg/mL193.0-986.0[facility] HospitalCreatinine [Mass/Vol]0.80 mg/dL0.55-1.02[facility] HospitalGFR/1.73 sq M.predicted MDRD (S/P/Bld) [Vol rate/Area] mL/min/{1.73_m2}>=60[facility] HospitalGlucose [Mass/Vol]103 mg/dL 74-106Community [facility] HospitalIron [Mass/Vol]80.0 ug/dL50.0-170.0 [facility] HospitalPotassium [Moles/Vol]4.2 mmol/L3.5-5.1FLima City HospitalProtein [Mass/Vol]7.6 g/dL6.4-8.2FSamaritan Hospitalodium [Moles/Vol]137 mmol/W541-550PqqxfdikzCommunity Memorial HospitalTriglyceride [Mass/Vol]367 mg/dLHigh<=150[facility] TSH Qn2.047 m[IU]/L0.358-3.740[facility] HospitalUrea nitrogen [Mass/Vol]9.0 mg/dL7.0-18.0[facility] HospitalUrea nitrogen/Creatinine [Mass ratio]11.2 mg/mgCommunity Memorial Hospital Laboratory - Hematology and Cell countson 92-52-4696Eadxxqrjpzj/100 WBC (Bld) 19.0 %Low20.5-60.0[facility] HospitalMonocytes/100 WBC (Bld)11.0 % 1.7-12.0[facility] HospitalLeukocytes [#/volume] corrected for nucleated erythrocytes in Blood by Automated counon 43-70-3238ACX corrected for nucl RBC Auto (Bld) [#/Vol]Leukocytes [#/volume] corrected for nucleated erythrocytes in Blood by Automated counHigh4.0-11.0[facility] HospitalH Auto (RBC) [Entitic mass]on 15-67-8439VVC (RBC) [Entitic mass]MCH [Entitic mass] by Automated count26.7-34.0[facility] HospitalMCHC Auto (RBC) [Mass/Vol]on 79-42-1398QBTG (RBC) [Mass/Vol]MCHC [Mass/volume] by Automated count29.9-35.2FLima City HospitalMCV Auto (RBC) [Entitic vol]on 83-00-6491TKH (RBC) [Entitic vol]MCV [Entitic volume] by Automated count 81.0-99.0[facility] HospitalNo Panel Informationon 2024 CLINISYNCNOMS Kazyjjaukj45-Kiuwqyn Vitamin D Total78.1 ng/mLCommunity Memorial HospitalComment on above:<20 ng/mL Vit D woxxfzoek09-<30 ng/mL Vit D poyquwcgihnw29-674 ng/mL Vit D sufficient>100 ng/mL Potential ToxicityAbsolute Basophils (Manual)0.00 10 3/uL0.00-0.10[facility] Eosinophils # (Manual)0.63 10 3/uL0.00-0.70[facility] Udjhxj23.50 ng/mL8.60-58.90[facility] HospitalLymphocytes # (Manual)2.39 10 3/uL1.20-3.80[facility] HospitalMonocytes # (Manual)1.38 10 3/uLHigh0.30-0.80[facility] HospitalProtein Electrophoresis M-SpikeNot Observed g/dLNot ObservedCommunity Memorial HospitalProtein Electrophoresis NoteComment.[facility] Comment on above:Protein electrophoresis scan will follow via computer,mail, or gastroenterology physician delivery.Performed at: [facility] [address] [id number] Director: Davy Abbott PhD, Phone: [phone] Lymphocytes0.50[facility] HospitalReactive Lymphocytes4.0 % Genesis Hospitalegmented Neutrophils # (Manual)7.68 10 3/uL High1.4-6.5FLima City HospitalPlatelet mean volume Auto (Bld) [Entitic vol]on 94-38-1531Exzbttsl mean volume (Bld) [Entitic vol]Platelet mean volume [Entitic volume] in Blood by Automated count9.5-13.5FLima City HospitalPlatelets Auto (Bld) [#/Vol]on 33-40-2658Ddbkifujc (Bld) [#/Vol] Platelets [#/volume] in Blood by Automated juoyi748-271QtblvoupdCommunity Memorial HospitalProtein [Mass/volume] in Serum or Plasmaon 95-44-2297Jtimmiq [Mass/Vol]Protein [Mass/volume] in Serum or Plasma6.0-8.5FLima City HospitalRBC Auto (Bld) [#/Vol]on 08-13-4944VGI (Bld) [#/Vol]Erythrocytes [#/volume] in Blood by Automated count4.20-5.40[facility] Segmented neutrophils/100 WBC Manual cnt (Bld)on 16-01-0707Xdpwixbqi neutrophils/100 WBC (Bld)Manual blood segmented neutrophils/100 leukocytes 43.0-75.0Genesis Hospitalerum globulin measurement (mass/volume)on 13-23-0235Xqtoviir (S) [Mass/Vol]Serum globulin measurement (mass/volume)2.2-3.9Genesis Hospitalerum or plasma albumin/globulin mass ratioon 44-86-2007Cvcgbux/Globulin [Mass ratio]Serum or plasma albumin/globulin mass ratio0.7-1.7FSamaritan Hospitalerum or plasma alpha 1 globulin measurement by electrophoresis (mass/volume)on 80-62-2639Lwffz 1 globulin Elph [Mass/Vol]Serum or plasma alpha 1 globulin measurement by electrophoresis (mass/volume)0.0-0.4FSamaritan Hospitalerum or plasma alpha 2 globulin measurement by electrophoresis (mass/volume)on 71-16-8434Smifi 2 globulin Elph [Mass/Vol]Serum or plasma alpha 2 globulin measurement by electrophoresis (mass/volume)0.4-1.0Genesis Hospitalerum or plasma anion gap determinationon 03-30-8371Nmeni gap [Moles/Vol]Serum or plasma anion gap determinationGenesis Hospitalerum or plasma beta globulin measurement by electrophoresis (mass/volume) on 57-22-3032Jikn globulin Elph [Mass/Vol]Serum or plasma beta globulin measurement by electrophoresis (mass/volume)0.7-1.3FSamaritan Hospitalerum or plasma gamma globulin measurement by electrophoresis (mass/volume)on 77-22-3376Vkxgr globulin Elph [Mass/Vol]Serum or plasma gamma globulin measurement by electrophoresis (mass/volume)0.4-1.8Genesis Hospitalerum or plasma total cholesterol/high density lipoprotein (HDL) cholesterol mass mildred 98-84-6717Lkhdbaahluq.total/Cholesterol in HDL [Mass ratio]Serum or plasma total cholesterol/high density lipoprotein (HDL) cholesterol mass ratCommunity Memorial HospitalComment on above:3.3 - 4.4 LOW RISK4.4 - 7.1 AVERAGE RISK7.1 - 11.0 MODERATE RISK>11.0 HIGH RISKCardiac stress study Procedureon 11-21-[address], [address], [place] [address] Exercise Stress Test Patient Name: SHEFALI TILLMAN Ordering Provider: [id number] ELFEGO MCLEAN Study Date: 11/21/2023 Reading Physician: [id number] Deuce Hall MD, [facility] MRN/PID: [id number] Supervising Physician: [id number] Elfego Hernandez MD Fellow: Date of /Age: 8 1970 / 53 years Fellow: Gender: F Nurse: Zuleyma Bell RN Admission Status: Brim Shaper: NA Height: 162.56 cm Technologist: Weight: 76.20 kg Additional Staff: BSA: 1.82 m2 BMI: 28.84 kg/m2 Patient Location: Study Type: STRESS TEST ONLY Diagnosis/ICD: Atherosclerotic heart disease-I25.10 Indication: Chest Pain CPT Codes: Stress Test Interpretation-35006; Stress Test Supervision-55664 Falls Risk: Low: Patient has low risk [...] dyspnea during the stress exam. The blood pressureresponse was normal. The test was terminated due to: dyspnea. Double Product (HR x BP): 216. Baseline ECG: Resting ECG showed normal sinus rhythm. Stress Stage Data: + +---+------+-------+ HR Sys BP Rivera BP + +---+------+-------+ Baseline Resting 66 128 82 + +---+------+-------+ Baseline Standing 70 124 86 + +---+------+-------+ Stage I 120 132 78 + +---+------+-------+ Stage II 142 152 86 + +---+------+-------+ Recovery ECG: The heart rate recovery was normal. + +---+------+-------+ HR Sys BP Rivera BP + +---+------+-------+ Recovery I 142 152 86 + +---+------+-------+ Recovery II 126 156 86 + +---+------+-------+ Recovery III 99 132 86 + +---+------+-------+ Recovery IV 81 122 82 + +---+------+-------+ Summary: 1. 1_normal graded exercise tolerance test [...] favorable. 2. Adequate level of stress achieved. [id number] Deuce Hall MD, FACC Electronically signed on 11/21/2023 at 4:57:24 PM Final Deuce Reyna MD - 11/21/[address], [address], [place] [address] Exercise Stress Test Patient Name: SHEFALI TILLMAN Ordering Provider: [id number] ELFEGO MCLEAN Study Date: 11/21/2023 Reading Physician: [id number] Deuce Hall MD, [facility] MRN/PID: [id number] Supervising Physician: [id number] Elfego Hernandez MD Fellow: Date of /Age: 8 1970 / 53 years Fellow: Gender: F Nurse: Zuleyma Bell RN Admission Status: Brim Shaper: ADOLFO Height: 162.56 cm Technologist: Weight: 76.20 kg Additional Staff: BSA: 1.82 m2 BMI: 28.84 kg/m2 Patient Location: Study Type: STRESS TEST ONLY Diagnosis/ICD: Atherosclerotic heart disease-I25.10 Indication: Chest Pain CPT Codes: Stress Test Interpretation-51326; Stress Test Supervision-56685 Falls Risk: Low: Patient has low risk [...] dyspnea during the stress exam. The blood pressureresponse was normal. The test was terminated due to: dyspnea. Double Product (HR x BP): 216. Baseline ECG: Resting ECG showed normal sinus rhythm. Stress Stage Data: + +---+------+-------+ HR Sys BP Rivera BP + +---+------+-------+ Baseline Resting 66 128 82 + +---+------+-------+ Baseline Standing 70 124 86 + +---+------+-------+ Stage I 120 132 78 + +---+------+-------+ Stage II 142 152 86 + +---+------+-------+ Recovery ECG: The heart rate recovery was normal. + +---+------+-------+ HR Sys BP Rivera BP + +---+------+-------+ Recovery I 142 152 86 + +---+------+-------+ Recovery II 126 156 86 + +---+------+-------+ Recovery III 99 132 86 + +---+------+-------+ Recovery IV 81 122 82 + +---+------+-------+ Summary: 1. 1_normal graded exercise tolerance test after completing 6 minutes on a Eirc protocol and achieving 85% of predicted maximal heart rate and a workload of 7 METS. Blood pressure nikolay to 156/86 mmHg. 2_no chest pain, cardiac arrhythmias or ischemic ST segment abnormalities induced by exercise 3_somewhat limited exercise tolerance for age, appropriate heart recovery and achievement of Rodriguez treadmill score of 6+ which is favorable. 2. Adequate level of stress achieved. [id number] Deuce Hall MD, [facility] Electronically signed on 11/21/2023 at 4:57:24 PM Final [facility] Work Phone: Cardiac stress study ProcedureOrdered By: Deuce Hall on 82-93-1993RsoediaavuHolzer Health System Work Phone: STRESS TEST ONLYon 99-88-2886KHHQAP TEST ONLYNortFirstHealth [address] [place] [address], [address], [place] [address] Exercise Stress Test Patient Name: SHEFALI TILLMAN Ordering Provider: [id number] ELFEGO MCLEAN Study Date: 11/21/2023 Reading Physician: [id number] Deuce Hall MD, [facility] MRN/PID: [id number] Supervising Physician: [id number] Elfego Hernandez MD Fellow: Date of /Age: 8 1970 / 53 years Fellow: Gender: F Nurse: Zuleyma Bell RN Admission Status: Brim Shaper: NA Height: 162.56 cm Technologist: Weight: 76.20 kg Additional Staff: BSA: 1.82 m2 BMI: 28.84 kg/m2 Patient Location: Study Type: STRESS TEST ONLY Diagnosis/ICD: Atherosclerotic heart disease-I25.10 Indication: Chest Pain CPT Codes: Stress Test Interpretation-30367; Stress Test Supervision-23367 Falls Risk: Low: Patient has low risk [...] dyspnea during the stress exam. The blood pressureresponse was normal. The test was terminated due to: dyspnea. Double Product (HR x BP): 216. Baseline ECG: Resting ECG showed normal sinus rhythm. Stress Stage Data: + +---+------+-------+ HR Sys BP Rivera BP + +---+------+-------+ Baseline Resting 66 128 82 + +---+------+-------+ Baseline Standing 70 124 86 + +---+------+-------+ Stage I 120 132 78 + +---+------+-------+ Stage II 142 152 86 + +---+------+-------+ Recovery ECG: The heart rate recovery was normal. + +---+------+-------+ HR Sys BP Rivera BP + +---+------+-------+ Recovery I 142 152 86 + +---+------+-------+ Recovery II 126 156 86 + +---+------+-------+ Recovery III 99 132 86 + +---+------+-------+ Recovery IV 81 122 82 + +---+------+-------+ Summary: 1. 1_normal graded exercise tolerance test [...] favorable. 2. Adequate level of stress achieved. [id number] Deuce Hall MD, [facility] Electronically signed on 11/21/2023 at 4:57:24 PM Final [facility]red HealthcareCOVID Quick Testingon 39-86-0873HfeurlWsgsyczqIiuzj [employer] Other Urinalysis - AUTOMATEDon 19-41-4315Dkxcouifit (U)clear [employer] Other Bilirubin Ql (U)NegativeQuora [employer] Other Color (U)light yellowElm City [employer] Other Glucose Ql (U)NegativeQuora [employer] Other Hemoglobin Ql (U)TRACE-INTACTQuora [employer] Other Ketones Ql (U)[facility] CenterQuora [employer] Other Leukocyte esterase Test strip Ql (U)[place] [facility] [employer] Other Nitrite Ql (U)[facility] CenterQu[facility] [employer] Other pH (U)7.0 [pH][employer] Other Protein Ql (U)[employer] InteractiveQu[employer] Other Specific gravity (U) [Rel density]1.010[facility] [employer] Other Urobilinogen (U) [Mass/Vol]0.2 mg/dLQuora [employer] Other Urinalysis - AUTOMATEDcheerapp Other DAT COVID-19 ANTIGENon 63-80-3061ECO [facility] Health Fairfield HospitalComment on above:Result Comment: This test has not been FDA [...] declaration is terminated or authorization is revoked sooner.Performed By: #### DATCVAG #### [facility] [address] [place] [address] Dr. Alley Gagnon-CoV-2 (COVID-19) RNA SCOTTY+probe Ql (Unsp spec)NegativeNormal NEGATIVEThe [facility] Children'S HospitalComment on above:Performed By: #### DATCVAG #### [facility] [address] [place] [address] Dr. Alley OchoaCholesterol [Mass/volume] in Serum or PlasmaOrdered By: Shari Kang on 14-26-3120Rkpptwmqjca [Mass/Vol]151 mg/wC349-908AwakmwfzgCommunity Memorial HospitalComment on above:Chol less than 200 mg/dl low riskChol 201-239 mg/dl borderline riskChol 240 mg/dl and greater high riskCholesterol in LDL Calc [Mass/Vol]Ordered By: Shari Kang on 66-12-9598Iwtdwkgtdrp in LDL [Mass/Vol] 77 mg/dL0-100Community Memorial HospitalComment on above:LDL ATP III CLASSIFICATIONLDL less than 100 mg/dL OptimalLDL 100-129 mg/dL Near or above wxryjkjXWX554-895 mg/dL Borderline highLDL 160-189 mg/dL HighLDL greater than 189 mg/dL Very highCholesterol in VLDL Calc [Mass/Vol]Ordered By: Shari Kang on 95-98-1094Wcorkgomigw in VLDL [Mass/Vol]34 mg/dLCommunity Memorial HospitalFolate [Mass/volume] in Serum or PlasmaOrdered By: Patricia Ch on 00-97-1773Rdvvpk [Mass/Vol]21.0 ng/mL>5.9[facility] Comment on above:Folate reference range: >5.9 ng/mlThe WHO technical consultation on folate and vitamin j02tqdclhkxhxyk has determined that folate concentrations lessthan 4 ng/ml are considered deficient.Glucose mean value [Mass/volume] in Blood Estimated from glycated hemoglobinOrdered By: Shari Kang on 12-76-1374Ffwcbig glucose Estimated from glycated hemoglobin (Bld) [Mass/Vol]120 mg/dLCommunity Memorial HospitalHemoglobin A1c percentage Ordered By: Shari Kang on 63-39-2929EtO6k (Bld) [Mass fraction]5.8 %4.3-5.6 Community Memorial HospitalComment on above:Increased risk for diabetes: 5.7 - 6.4diabetes: >6.4glycemic control for adults with diabetes: <7.0 Laboratory - Chemistry and Chemistry - challengeOrdered By: Patricia Ch on 66-26-1464Cgkiqhjqn (Vitamin B12) [Mass/Vol]195 pg/lP944-242AlzdtyguxGenesis Hospitalerum or plasma high density lipoprotein (HDL) cholesterol measurementOrdered By: Shari Kang on 96-00-7872Gynalaarcjl in HDL [Mass/Vol] 40 mg/oX33-61HfszxdnlcCommunity Memorial HospitalComment on above:HDL CHOL ATP-III CLASSIFICATION Cardiovascular RiskHDL > or equal to 60 mg/dL LOWHDL < 40 mg/dL HIGHSerum or plasma total cholesterol/high density lipoprotein (HDL) cholesterol mass ratOrdered By: Shari Kang on 19-53-0782Miojdykxzgs.total/Cholesterol in HDL [Mass ratio]3.8 {ratio}<5.0Community Memorial HospitalTS DL <= 0.005 mIU/L QnOrdered By: Patricia Ch on 20-12-2355SHV Qn1.84 m[IU]/L0.45-5.33 [facility] HospitalTriglyceride [Mass/volume] in Serum or Plasma Ordered By: Shari Kang on 00-47-1269Ppejpwwkrvsu [Mass/Vol]170 mg/rF67-070 Community [facility] HospitalComment on above:TRIG ATP III CLASSIFICATIONTRIG less than 150 mg/dL NormalTRIG 150-199 mg/dL Borderline highTRIG 200-500 mg/dL High TRIG greater than 500 mg/dL Very highStandard traceable to the Center for Disease Conrtrol and Prevention (CDC) test method. Activated partial thromboplastin time (aPTT) in platelet poor plasma by coagulation aOrdered By: Edward Christian on 15-63-7499wWVZ Coag (PPP) [Time]29.4 s 25.1-36.5FLima City HospitalAutomated erythrocytes count in urine sediment (number/area)Ordered By: Edward Christian on 12-51-2691YBF Auto (Urine sed) [#/Area]3-4 [HPF]0-4FLima City HospitalAutomated leukocytes count in urine sediment (number/area)Ordered By: Edward Christian on 41-40-3661YLZ Auto (Urine sed) [#/Area]5-9 [HPF]0-4FLima City HospitalBasophils Auto (Bld) [#/Vol]Ordered By: Edward Christian on 27-57-9001Wvnjndxug (Bld) [#/Vol]0.1 10*3/uL0.0-0.2FLima City HospitalBasophils/100 WBC Auto (Bld) Ordered By: Edward Christian on 14-80-1946Emunpamcj/100 WBC (Bld)0.8 %.Community Memorial HospitalBilirubin Test strip Ql (U)Ordered By: Edward Christian on 61-49-9286Alzomivzz Ql (U)NegativeNegativeCommunity Memorial HospitalColor Auto (U)Ordered By: Edward Christian on 45-07-9936Lggne (U)YellowYellowCommunity Memorial HospitalCreatine kinase [Enzymatic activity/volume] in Serum or PlasmaOrdered By: Edward Christian on 35-08-4552XO [Catalytic activity/Vol]140 U/L [facility] HospitalCreatinine (Bld) [Mass/Vol]Ordered By: Shari Kang on 67-07-1595Vmumhorwbw [Mass/Vol]0.9 mg/dL0.6-1.3FLima City HospitalComment on above:ER/ESD physician is notified/shown all ISTAT results.Critical values may be confirmed by laboratorytesting ifdeemed necessary by ER attending doctor.Creatinine and Glomerular filtration rate.predicted panel (S/P/Bld)Ordered By: Edward Christian on 26-98-5420Nnwlgxjkbh [Mass/Vol]0.87 mg/dL0.44-1.03Community Memorial HospitalEosinophils Auto (Bld) [#/Vol]Ordered By: Edward Christian on 77-97-9903Hclbzmlksws (Bld) [#/Vol]0.7 10*3/uL0.0-0.45Community Memorial HospitalEosinophils/100 WBC Auto (Bld) Ordered By: Edward Christian on 17-87-9811Bzxkdwogheu/100 WBC (Bld)6.4 %.Community Memorial HospitalErythrocyte distribution width Auto (RBC) [Ratio]Ordered By: Edward Christian on 39-70-1349Gcflhcuauoq distribution width (RBC) [Ratio]13.6 % 11.9-15.3FLima City HospitalEstimated glomerular filtration rate (GFR) non- AmericanOrdered By: Edward Christian on 39-80-5826QZU/1.73 sq M.predicted among non-blacks MDRD (S/P/Bld) [Vol rate/Area]> 60 mL/MinCommunity Memorial HospitalGlucose Glucometer (BldC) [Mass/Vol]Ordered By: Edward Christian on 38-59-5276Dovonrt [Mass/Vol]140 mg/dLCommunity Memorial Hospital Comment on above:Random Glucose Reference Range is dependent on time and content of last meal. Glucose of more than 200 mg/dL in a nonstressed, ambulatory subject supports the diagnosis of Diabetes Mellitus.Hematocrit Auto (Bld) [Volume fraction]Ordered By: Edward Christian on 80-20-1842Jakvhrcmjz (Bld) [Volume fraction]46.6 %34.0-46.4FLima City HospitalHemoglobin [Mass/volume] in BloodOrdered By: Edward Christian on 50-55-7440Ejntzdmhol (Bld) [Mass/Vol]15.9 g/dL11.8-15.4FLima City HospitalKetones Auto test strip (U) [Mass/Vol]Ordered By: Edward Christian on 62-90-5069Aqbsofm (U) [Mass/Vol] NegativeNegativeCommunity Memorial HospitalLaboratory - CoagulationOrdered By: Edward Christian on 23-99-1643SS Coag (PPP) [Time]10.8 s9.0-12.9Community [facility] HospitalLaboratory - UrinalysisOrdered By: Edward Christian on 75-28-3148Ygqzmhb casts LM Ql (Urine sed)0-8 [LPF]0-8[facility] Memorial HospitalLeukocytes [#/volume] corrected for nucleated erythrocytes in Blood by Automated counOrdered By: Edward Christian on 89-07-0733PKH corrected for nucl RBC Auto (Bld) [#/Vol]10.8 10*3/uL3.8-11.6FLima City Hospital Lymphocytes Auto (Bld) [#/Vol]Ordered By: Edward Christian on 45-16-7614Clvclziftpx (Bld) [#/Vol]3.3 10*3/uL1.00-4.8Community Memorial HospitalLymphocytes/100 WBC Auto (Bld)Ordered By: Edward Christian on 55-74-6559Vqijyctqqnl/100 WBC (Bld) 30.5 %.[facility] HospitalH Auto (RBC) [Entitic mass]Ordered By: Edward Christian on 03-76-4444VEV (RBC) [Entitic mass]31.6 pg24.7-34.3FLima City HospitalMCHC Auto (RBC) [Mass/Vol]Ordered By: Edward Christian on 93-01-8781AHGY (RBC) [Mass/Vol]34.2 g/dL32.0-35.0Community Memorial HospitalMCV Auto (RBC) [Entitic vol]Ordered By: Edward Christian on 28-37-8615BDY (RBC) [Entitic vol]92.3 aT63-736NsqknqtkrCommunity Memorial HospitalMonocyte distribution width [Entitic volume] in Blood by AutomatedOrdered By: Edward Christian on 23-97-5854Qvyosrui distribution width Auto (Bld) [Entitic vol]18.05 % 0.00-20.00Community Memorial HospitalMonocytes Auto (Bld) [#/Vol]Ordered By: Edward Christian on 75-42-7915Bgmexskhg (Bld) [#/Vol]1.5 10*3/uL0.0-0.8Community Memorial HospitalMonocytes/100 WBC Auto (Bld)Ordered By: Edward Christian on 86-02-1792Cdvdnhcdx/100 WBC (Bld)14.0 %.[facility] Neutrophils Auto (Bld) [#/Vol]Ordered By: Edward Christian on 77-39-3783Edjacwwqduy (Bld) [#/Vol]5.2 10*3/uL1.8-7.7FLima City HospitalNeutrophils/100 WBC Auto (Bld)Ordered By: Edward Christian on 25-86-3573Matplodhvet/100 WBC (Bld) 48.3 %.[facility] Memorial HospitalNitrite Test strip Ql (U)Ordered By: Edward Christian on 17-99-6219Avtozou Ql (U)NegativeNegativeCommunity Memorial HospitalNo Panel InformationOrdered By: Shari Kang on 10-19-1387VJP Estimated GFR > 60Community [facility] HospitalComment on above:GFR estimated reference range: According to KDOQI guidelines, <60 ml/min/1.73m2 is sufficient todiagnose a patient with chronic kidney disease.POC Estimated GFR Non- Amer> 60[facility] HospitalNo Panel InformationOrdered By: Edward Christian on 12-18-0052Bqkmpaqnj GFR ()> 60 mL/MinCommunity Memorial HospitalComment on above:GFR estimated reference range: According to KDOQI guidelines, <60 ml/min/1.73m2 is sufficient todiagnose a patient with chronic kidney disease.Pharmacy Creatinine Clearance (Chem83.99Community [facility] HospitalBedside Glucose #2 Comment Cleaned meterCommunity Memorial HospitalBedside Glucose CommentSee comment [facility] HospitalComment on above:Glu2: WILL NOTIFY DR/RN Nucleated erythrocytes [Presence] in Blood by Automated countOrdered By: Edward Christian on 67-96-2433Fknwjkbcr RBC Auto Ql (Bld)0.2 /100{WBC}0-0.5FLima City HospitalPlatelet mean volume Auto (Bld) [Entitic vol]Ordered By: Edward Christian on 04-74-0014Swfjuicf mean volume (Bld) [Entitic vol]8.4 fL6.3-10.7 [facility] Memorial HospitalPlatelet poor plasma international normalized ratio (INR) by coagulation assay (relatOrdered By: Edward Christian on 11-42-3441EFB Coag (PPP) [Relative time]0.9 {INR}[facility] HospitalComment on above:INR Therapeutic Range A) Pre- and Peroperative OAT started two weeks before surgery. NOT HIP SURGERY: 1.5 - 2.5 HIP SURGERY: 2 - 3B) Primary and secondary prevention of venous THROMBOSIS: 2 - 3C) Active venous thrombosis, pulmonary embolismand prevention of recurrent venous thrombosis: 2 - 3D) Preve ntion of arterial thromboembolismincluding patients with mechanical heart valves: 3 - 4.5Platelets Auto (Bld) [#/Vol]Ordered By: Edward Christian on 00-65-6726Suvghewqb (Bld) [#/Vol]302 10*3/vS578-994CbsdwazewCommunity Memorial HospitalProtein Auto test strip (U) [Mass/Vol]Ordered By: Edward Christian on 70-71-1188Mugttxs (U) [Mass/Vol]NegativeNegativeCommunity Memorial HospitalRBC Auto (Bld) [#/Vol]Ordered By: Edward Christian on 13-81-0893QOQ (Bld) [#/Vol]5.04 10*6/uL3.60-5.00Genesis Hospitalerum or plasma anion gap determinationOrdered By: Edward Christian on 40-43-2937Hqwwk gap [Moles/Vol]17.0 mmol/L6.0-15.0Genesis Hospitalerum or plasma calcium measurement (mass/volume)Ordered By: Edward Christian on 16-01-1937Gamkbrs [Mass/Vol]9.3 mg/dL8.2-10.2FSamaritan Hospitalerum or plasma chloride measurement (moles/volume)Ordered By: Edward Christian on 07-02-2022 Chloride [Moles/Vol]98 mmol/R41-028ZeqffxphzGenesis Hospitalerum or plasma creatine kinase MB (CKMB)/total creatine kinase (CK) ratio by calcula Ordered By: Edward Christian on 38-21-2214GB.MB Calc [Catalytic fraction]1.3 % 0.00-2.50Genesis Hospitalerum or plasma creatine kinase MB measurement (mass/volume)Ordered By: Edward Christian on 56-56-3063KG.MB [Mass/Vol] 1.9 ng/mL0.6-6.3FSamaritan Hospitalerum or plasma glucose measurement (mass/volume)Ordered By: Edward Christian 27-73-3425Tyfhdke [Mass/Vol]111 mg/iK25-042FpehaqvvqCommunity Memorial HospitalComment on above:ADA recommended reference rangeRandom Glucose Reference Range is dependent on time and content of last meal. Glucose of more than 200 mg/dL in a nonstressed, ambulatory subject supports the diagnosisof Diabetes Mellitus.Serum or plasma potassium measurement (moles/volume)Ordered By: Edward Christian on 07-02-2022 Potassium [Moles/Vol]3.7 mmol/L3.5-5.1FSamaritan Hospitalerum or plasma sodium measurement (moles/volume)Ordered By: Edward Christian 07-02-2022 Sodium [Moles/Vol]135 mmol/F316-227SdsdouzdpGenesis Hospitalerum or plasma total carbon dioxide measurement (moles/volume)Ordered By: Edward Christian 87-92-4172JN2 [Moles/Vol]23.7 mmol/L22.0-30.0Genesis Hospitalerum or plasma urea nitrogen measurement (mass/volume)Ordered By: Edward Christian 36-03-4607Avxs nitrogen [Mass/Vol]10 mg/dL9-23Genesis Hospitalpecific gravity Auto test strip (U) [Rel density]Ordered By: Edward Christian on 92-51-2371Epdigdiw gravity (U) [Rel density]1.0031.001-1.030 Genesis Hospitalquamous epithelial cells detection in urine sediment by light microscopyOrdered By: Edward Christian on 99-29-3420Giypzridob cells.squamous LM Ql (Urine sed)1-2 [HPF]0-2FLima City Hospital Troponin I.cardiac [Mass/volume] in Serum or Plasma by High sensitivity method Ordered By: Edward Christian on 54-87-6642Hbgtqqkf I.cardiac High sensitivity method [Mass/Vol]4 pg/mL0-15Community Memorial HospitalUrine bacteria detection by automated methodOrdered By: Edward Christian on 55-45-6648Soksullc Auto Ql (U) None seenNone SeenCommunity Memorial HospitalUrine clarity by refractometry automatedOrdered By: Edward Christian on 09-02-2131Xlrdzpx Refractometry automated (U)ClearClearFLima City HospitalUrine culture routineOrdered By: Edward Christian on 32-24-9827Qnxedroc identified Cx Nom (U)2 DaysCommunity Memorial HospitalUrine glucose measurement by automated test strip (mass/volume)Ordered By: Edward Christian on 12-33-6999Cbpwnit Auto test strip (U) [Mass/Vol]Normal mg/dLNormOhio State Health SystemUrine hemoglobin detection by automated test stripOrdered By: Edward Christian on 83-51-9344Anglwtytcr Auto test strip Ql (U)NegativeNegativeCommunity Memorial HospitalUrine leukocyte esterase detection by automated test stripOrdered By: Edward Christian on 18-10-2884Cyumhrgjh esterase Auto test strip Ql (U)1+ NegativeCommunity Memorial HospitalUrobilinogen Auto test strip (U) [Mass/Vol]Ordered By: Edward Christian on 17-23-5070Mzoezdpurxdz (U) [Mass/Vol] Normal mg/dLNormOhio State Health SystemWBC Auto (Bld) [#/Vol]Ordered By: Edward Christian on 82-18-6813SSB (Bld) [#/Vol]10.8 10*3/uL3.8-11.6FLima City HospitalpH Auto test strip (U)Ordered By: Edward Christian on 72-22-5534kH (U)5.5 [pH]5.0-9.0[facility] HospitalPhysician Referralon 82-51-5473Zrnkkggte Referral [id number]#1.00CD:127Antonella [facility] CenterPA ACOG PANEL 2: 21 to 29on 04-28-2022..NormalThe [facility] Comment on above:Result Comment: Performed at: WBPerformed By: #### [id number] #### [facility] [address] [address] [address] Alley Rodriguez Gdln ACOG Odeqdyh11-96YjdgrbMllSt. John of God HospitalComment on above:Performed By: #### [id number] #### [facility] [address] [place] [address] Dr. Alley OchoaDIAGNOSIS:CommentAbFisher-Titus Medical CenterComment on above: Result Comment: EPITHELIAL CELL ABNORMALITY. LOW GRADE SQUAMOUS INTRAEPITHELIAL LESION (LSIL). Performed at: WBPerformed By: #### [id number] #### [facility] [address] [address] [address] Hager ChangElectronically signed by:[facility] Comment on above:Result Comment: Connie Padgett MD, Pathologist Performed at: WBPerformed By: #### [id number] #### [facility] [address] [address] [address] Alley Washington AptimaPositiveAbnormalNegativeMartin Memorial HospitalComment on above:Result Comment: This nucleic acid amplification test detects fourteen high-risk HPV types (16,18,31,33,35,39,45,51,52,56,58,59,66,68) without differentiation. Performed at: =GPerformed By: #### [id number] #### [facility] [address] [place] [address] Dr. Alley Washington Genotype ReflexCommentSelect Medical Specialty Hospital - YoungstownComment on above:Result Comment: Criteria not met, HPV Genotype not performed. Performed at: WBPerformed By: #### [id number] #### [facility] [address] [place] [address] Dr. Alley OchoaMethodology:CommentPremier Health on above: Result Comment: This liquid based ThinPrep(R) pap test was screened with the use of an image guided system. Performed at: WBPerformed By: #### [id number] #### [facility] [address] [place] [address] Dr. Alley OchoaNote:CommentNoCleveland Clinic Foundation on above:Result Comment: The Pap smear is a screening test designed to aid in the detection of premalignant and malignant conditions of the uterine cervix. It is not a diagnostic procedure and should not be used as the sole means of detecting cervical cancer. Both false-positive and false-negative reports do occur. . Performed at: WBPerformed By: #### [id number] #### [facility] [address] [place] [address] Dr. Alley OchoaPathologist Provided XQY75KcpvqogJiregyXteSelect Medical Specialty Hospital - Youngstown Comment on above:Result Comment: [id number] Performed at: WBPerformed By: #### [id number] #### [facility] [address] [place] [address] Dr. Alley OchoaPerformed by:CommentNoCleveland Clinic Foundation on above: Result Comment: Demi Pelaez, Armature Balancer Performed at: WBPerformed By: #### [id number] #### [facility] [address] [place] [address] Dr. Alley OchoaSpecimen adequacy:CommentPremier Health on above:Result Comment: Satisfactory for evaluation. No endocervical component is identified. Performed at: WBPerformed By: #### [id number] #### [facility] [address] [place] [address] Dr. Alley OchoaCOVID/FLU RT-PCRon 35-94-1390OQHI-CoV-2 (COVID-19) RNA SCOTTY+probe Ql (Unsp spec)NegativeNokansas city va medical center [employer] Other COVID/FLU RT-PCRNegativeSaint Louis University HospitalKentaura Other Quguj Strepon 04-14-2022. pyogenes Org specific cx Ql (Throat)NegativeSaint Louis University HospitalKentaura Other quick Strepcheerapp Other Cardiac Stress Teston 49-68-8518Azgtgpq Stress Test [address], [address] [place] [address] Exercise Stress Test Patient Name: SHEFALI Ordering Physician: [id number] Jerome Pelaez NP MAQUOKETA Study Date: 02/22/2022 Reading Physician: [id number] Rosio Riojas MD MRN/PID: [id number] Supervising Physician: [id number] Riojas MD Accession/Order#: [id number] Referring Physician: JEROME PELAEZ Date of : 1970 PCP: Osiel Pettit MD Gender: F Fellow: Height: 162.56 cm Nurse: Zuleyma Bell RN Weight: 74.84 kg Brim Shaper: ADOLFO BSA: 1.80 m2 Technologist: BMI: 28.32 kg/m2 Additional Staff: Age: 52 years cc report to: Patient Location: cc report to: [id number] Jerome Pelaez NP Study Type: Cardiac Stress Test Diagnosis/ICD: I25.10-Atherosclerotic heart disease Indication: Pre-Op Evaluation Procedure/CPT: Stress Test Interpretation-26489; Stress Test Supervision-[id number] Falls Risk: Low: Patient has low risk [...] showed sinus tachycardia. Stress Stage Data: + +---+------+-------+ HR Sys BP Rivera BP + +---+------+-------+ Baseline Resting 67 118 80 + +---+------+-------+ Baseline Standing 70 114 78 + +---+------+-------+ Stage I 108 138 76 + +---+------+-------+ Stage II 137 164 78 + +---+------+-------+ Stage III 148 172 80 + +---+------+-------+ Recovery ECG: The heart rate recovery was normal. + +---+------+-------+ HR Sys BP Rivera BP + +---+------+-------+ Recovery I 148 178 82 + +---+------+-------+ Recovery II 139 172 76 + +---+------+-------+ Recovery III 102 162 78 + +---+------+-------+ Recovery IV 97 132 80 + +---+------+-------+ Recovery V 91 120 82 + +---+------+-------+ Summary: 1. Normal graded exercise stress test without diagnostic ST-T changes for ischemia. 2. No provoked chest pain or arrhythmia. 3. Appropriate hemodynamic response to exercise. 4. Good exercise tolerance. 5. Normal heart rate recovery phase. 6. Clinically negative study. 7. The adequate level of stress was achieved. [id number] Rosio Riojas MD Electronically signed on 02/22/2022 at 4:37:00 PM Final NormalMercy Regional Medical CenterOffice Visit (Cardiology)on 33-73-7062Bujylr-up visitDiagnoses/Problems Assessed Atherosclerosis of coronary artery of [place] heart without angina pectoris (414.01) (I25.10) Jun [...] health. Orders Atherosclerosis of coronary artery of [place] heart without angina pectoris Start: Furosemide 20 MG Oral Tablet; Take one tablet daily as needed Cardiac Stress Test; Status:Hold For - Scheduling; Requested for:01Feb2022; BMI 28.0-28.9,adult Healthy Weight Tips; Status:Complete; Done: 01Feb2022 SocHx: Current every day smoker Tobacco Use Screening; Status:Complete; Done: [id number] Tobacco Use Screening; Status:Complete; Done: [id number] Patient Instructions Please bring all medicines, vitamins, [...] making process incorporating patients unique circumstances, the followingtreatment plan will be initiated: 1. Prescription drug management of cardiovascular medication for efficacy, adherence to treatment, side effect assessment and polypharmacy. Current treatment clinically warranted and to continue without modifications. 2. GXT (clearance for liposuction) 3. Return for follow-up; in the interim, contact the office if new symptoms arise. Dr. Mclean in 6 months 4. Lasix 20mg daily as needed for edema Discussed the dynamic nature of coronary artery disease and the importance of seeking medical attention if new symptoms arise. Chief Complaint Routine f/u doing ok SHEFALI TILLMAN is being seen for a 6 month follow-up of chest pain, dyslipidemia and hypertension. Patient is ambulatory with steady gait. Last evaluated in clinic by Dr. Mclean Jan 2021. A chronological chart review from last in clinic evaluation was completed. She is considering laser liposuction - Dr. Mclean recommended GXT prior. Compared to last cardiovascular [...] edema. Respiratory: no sh (more content not included)...NormalUH TouchworksTobacco Screening.on 46-50-3969Pluwj depression screening assessmentHasbro Children's Hospital Jamii DO Work Phone: Tobacco use status CPHSa) [facility] [address] DO Work Phone: Tobacco Screening.[facility] [address] DO Work Phone: CBC AUTO DIFFon [id number] #0.1 103/ulNormal 0.0-0.1The [facility]S HospitalComment on above:Performed By: #### CBC #### [facility] [address] [place] [address] Dr. Alley Fieldsphils/100 WBC (Bld)0.6 %Normal0.2-2.0The [facility] Comment on above:Performed By: #### CBC #### [facility] [address] [address] [address] Alley Springer #0.5 103/ulNormal0.0-0.7The [facility]'S HospitalComment on above: Performed By: #### CBC #### [facility] [address] [place] [address] Dr. Alley Armandoosinophils/100 WBC (Bld)4.5 %Normal0.9-7.0[facility] Comment on above:Performed By: #### CBC #### [facility] [address] [place] [address] Dr. Alley Armandorythrocyte distribution width (RBC) [Ratio]13.2 %Ziiopl66.0-15.0 The [facility]'S HospitalComment on above:Performed By: #### CBC #### [facility] [address] [place] [address] Dr. Alley OchoaHematocrit (Bld) [Volume fraction]47.2 %Nmugyj03.0-48.0The [facility]'S HospitalComment on above:Performed By: #### CBC #### [facility] [address] [place] [address] Dr. Alley OchoaHemoglobin (Bld) [Mass/Vol]15.9 g/dNVzrhol88.0-16.0The [facility]'S HospitalComment on above:Performed By: #### CBC #### [facility] [address] [place] [address] Dr. Alley Tobar #0.06 10e3/ulCritically high0.00-0.03The [facility] Comment on above:Performed By: #### CBC #### [facility] [address] [place] [address] Dr. Alley Tobar %0.5 %Normal0.0-0.5The [facility] HospitalComment on above: Performed By: #### CBC #### [facility] [address] [place] [address] Dr. Alley LopezH #2.0 103/ulNormal1.2-3.8The [facility] HospitalComment on above:Performed By: #### CBC #### [facility] [address] [place] [address] Dr. Alley Shresthamphocytes/100 WBC (Bld)17.8 %Critically low20.5-60.0The [facility] HospitalComment on above:Performed By: #### CBC #### [facility] [address] [place] [address] Dr. Alley DeniseUAL DIFF REQNONormalThe [facility] HospitalComment on above: Performed By: #### CBC #### [facility] [address] [place] [address] Dr. Alley Ruiz (RBC) [Entitic mass]31.2 qzJnajuk37.7-34.0The [facility] HospitalComment on above:Performed By: #### CBC #### [facility] [address] [place] [address] Dr. Alley Ruiz (RBC) [Mass/Vol]33.7 g/cNKfiztv08.9-35.2The [facility] HospitalComment on above:Performed By: #### CBC #### [facility] [address] [place] [address] Dr. Alley Ruiz (RBC) [Entitic vol]92.5 bPCkpheb99.0-99.0The [facility] HospitalComment on above:Performed By: #### CBC #### [facility] [address] [place] [address] Dr. Alley Hughes #1.3 103/ulCritically high0.3-0.8ThW[facility] Comment on above:Performed By: #### CBC #### [facility] [address] [place] [address] Dr. Alley Godinezocytes/100 WBC (Bld)11.5 %Normal1.7-12.0[facility] Comment on above:Performed By: #### CBC #### [facility] [address] [place] [address] Dr. Alley Larose #7.2 103/ulCritically high1.4-6.5The [facility] Comment on above:Performed By: #### CBC #### [facility] [address] [address] [address] Alley Cadenautrophils/100 WBC (Bld)65.1 %Uwokmo87.0-75.0The [facility] on above:Performed By: #### CBC #### [facility] [address] [place] [address] Dr. Alley OchoaPlatelet mean volume (Bld) [Entitic vol]10.0 fLNormal9.5-13.5The [facility] HospitalComasp[facility] on above:Performed By: #### CBC #### [facility] [address] [place] [address] Dr. Alley OchoaPLT273 103/pjSbkfdn714-178Flv [facility] on above: Performed By: #### CBC #### [facility] [address] [place] [address] Dr. Alley OchoaRBC5.10 106/ulNormal4.20-5.40The [facility] on above:Performed By: #### CBC #### [facility] [address] [place] [address] Dr. Alley OchoaWBC11.0 103/ulNormal4.0-11.0The [facility] on above:Performed By: #### CBC #### [facility] [address] [place] [address] Dr. Alley OchoaGLYCOHEMOGLOBIN A1Con 14-22-0578PCE RECOMMENDATIONSEE BELOWNormal The [facility] HospitalComasp[facility] on above:Result Comment: ADA RECOMMENDED LIMIT 4.0 - 6.0 ADA THERAPEUTIC TARGET < 7.0 ACTION SUGGESTED > 7.0Performed By: #### A1C #### [facility] [address] [place] [address] Dr. Alley OchoaGlucose [Mass/Vol]120 mg/dLNormalThCorey Hospital on above:Performed By: #### A1C #### [facility] [address] [place] [address] Dr. Alley OchoaHbA1c (Bld) [Mass fraction]5.8 %Normal4.5-6.2The [facility] HospitalComment on above:Performed By: #### A1C #### [facility] [address] [address] [address] Alley BondsID PROFILEon [id number]-HDL RATIO NORMSMercy Health Clermont HospitalComment on above:Result Comment: 3.3 - 4.4 LOW RISK 4.4 - 7.1 AVERAGE RISK 7.1 - 11.0 MODERATE RISK >11.0 HIGH RISKPerformed By: #### CMP, LIPID #### [facility] [address] [address] [address] Alley OchoaCholesterol [Mass/Vol]156 mg/dLNormal<=200[facility] Comment on above:Performed By: #### CMP, LIPID #### [facility] [address] [address] [address] Alley OchoaCholesterol in HDL [Mass/Vol]42 mg/nZEgcdjw19-02SnnMartin Memorial HospitalComaspirus keweenaw hospital on above:Performed By: #### CMP, LIPID #### [facility] [address] [address] [address] Alley OchoaCholesterol in LDL [Mass/Vol]65.0 mg/dLSelect Medical Specialty Hospital - YoungstownComaspirus keweenaw hospital on above:Performed By: #### CMP, LIPID #### [facility] [address] [address] [address] Alley Gallowayesterdaphney.total/Cholesterol in HDL [Mass ratio]3.7 {ratio} NormalMartin Memorial HospitalComment on above:Performed By: #### CMP, LIPID #### [facility] [address] [address] [address] Alley OchoaHDL NORMAL> or = 60 mg/dl - LOW CARDIOVASCULAR RISK <40 mg/dl - HIGH CARDIOVASCULAR RISKSelect Medical Specialty Hospital - YoungstownComaspirus ke[facility] hospital on above:Performed By: #### CMP, LIPID #### [facility] [address] [address] [address] Alley OchoaLDL CALC NORMALSEE [facility] CenterComaspirus ke[facility] hospital on above:Result Comment: <100 mg/dl OPTIMAL 100 - 129 mg/dl NEAR OR ABOVE OPTIMAL 130 - 159 mg/dl BORDERLINE HIGH 160 - 189 mg/dl HIGH >190 mg/dl VERY HIGH Performed By: #### CMP, LIPID #### [facility] [address] [place] [address] Dr. Alley OchoaTriglyceride [Mass/Vol]245 mg/dLCritically high<=150The [facility] HospitalComment on above:Performed By: #### CMP, LIPID #### [facility] [address] [place] [address] Dr. Alley OchoaVLDL CALC49.0 mg/dLNormalThe [facility] HospitalComment on above: Performed By: #### CMP, LIPID #### [facility] [address] [place] [address] Dr. Alley OchoaPROBrisa 14(COMP METB)on 42-12-2198Sjodfsl [Mass/Vol]3.8 g/dLNormal 3.4-5.0The [facility] HospitalComment on above:Performed By: #### CMP, LIPID #### [facility] [address] [place] [address] Dr. Alley OchoaAlbumin/Globulin [Mass ratio]0.9 {ratio}NormalThe [facility] HospitalComment on above:Performed By: #### CMP, LIPID #### [facility] [address] [place] [address] Dr. Alley Garner [Catalytic activity/Vol]92 U/XYajnwp88-207Uuo [facility] HospitalComment on above:Performed By: #### CMP, LIPID #### [facility] [address] [place] [address] Dr. Alley Cosme [Catalytic activity/Vol]35 U/CYhamsg62-59Gci [facility] Toledoment on above:Performed By: #### CMP, LIPID #### [facility] [address] [place] [address] Dr. Alley Johnston gap [Moles/Vol]13.5 mmol/LNormalThe [facility] Comment on above:Performed By: #### CMP, LIPID #### [facility] [address] [place] [address] Dr. Alley OchoaAST [Catalytic activity/Vol]28 U/LIhqzze28-51Wgb [facility] Toledoment on above:Performed By: #### CMP, LIPID #### [facility] [address] [address] [address] Alley OchoaBilirubin [Mass/Vol]0.6 mg/dLNormal0.2-1.0The [facility] Comment on above:Performed By: #### CMP, LIPID #### [facility] [address] [address] [address] Alley OchoaCalcium [Mass/Vol]9.1 mg/dLNormal8.5-10.1The [facility] Comment on above:Performed By: #### CMP, LIPID #### [facility] [address] [place] [address] Dr. Alley OchoaChloride [Moles/Vol]101 mmol/VLtmxcl78-494Ssw [facility] Comment on above:Performed By: #### CMP, LIPID #### [facility] [address] [place] [address] Dr. Alley OchoaCO2 [Moles/Vol]26.2 mmol/IHurdur52.0-32.0The [facility] Comment on above:Performed By: #### CMP, LIPID #### [facility] [address] [place] [address] Dr. Alley OchoaCreatinine [Mass/Vol]0.80 mg/dLNormal0.55-1.02The [facility] HospitalComment on above:Performed By: #### CMP, LIPID #### [facility] [address] [place] [address] Dr. Alley ArmandoGFR-AF CHINESE>60Normal>=60The [facility] HospitalComment on above:Performed By: #### CMP, LIPID #### [facility] [address] [place] [address] Dr. Alley ArmandoGFR-NON AF CHINESE>60Normal>=60The [facility] HospitalComment on above:Performed By: #### CMP, LIPID #### [facility] [address] [place] [address] Dr. Alley OchoaGlobulin (S) [Mass/Vol]4.0 g/dLNormMercy HealthComment on above:Performed By: #### CMP, LIPID #### [facility] [address] [address] [address] Alley OchoaGlucose [Mass/Vol]115 mg/dLCritically fbqq32-809Gvv [facility] HospitalComment on above:Performed By: #### CMP, LIPID #### [facility] [address] [address] [address] Alley OchoaPotassium [Moles/Vol]4.7 mmol/LNormal3.5-5.1The [facility] Comment on above:Performed By: #### CMP, LIPID #### [facility] [address] [place] [address] Dr. Alley OchoaProtein [Mass/Vol]7.8 g/dLNormal6.4-8.2The [facility] Comment on above:Performed By: #### CMP, LIPID #### [facility] [address] [place] [address] Dr. Alley OchoaSodium [Moles/Vol]136 mmol/WBzofci974-894Ofj [facility] Comment on above:Performed By: #### CMP, LIPID #### [facility] [address] [place] [address] Dr. Alley OchoaUrea nitrogen [Mass/Vol]12.0 mg/dLNormal7.0-18.0The [facility] HospitalComment on above:Performed By: #### CMP, LIPID #### [facility] [address] [place] [address] Dr. Alley OchoaUrea nitrogen/Creatinine [Mass ratio]15.0 mg/mgNoSt. John of God HospitalComment on above:Performed By: #### CMP, LIPID #### [facility] [address] [place] [address] Dr. Alley Tabares Fluon [id number] Ab CF (S) [Titer]NegativeHaowj.com Other FLUBV Ab CF (S) [Titer]NegativeNorth Pepperweed Consult[employer] Other Vital Signs Date TimeVital SignValuePerforming GdflznzicOrdfegun40-69-5066 15:01-0400Body rwgoqa883.56 cmKarmen Wilkinsabdullahistephaniegael B2B OUTSIDE SALES REPRESENTATIVE Work Phone: [phone]69[facility]10-14-2025 15:01-0400 Body mass index (BMI) [Ratio]28.5 kg/k2Tgsvubat Rohabdullahistephaniegael B2B OUTSIDE SALES REPRESENTATIVE Work Phone: [phone])[address]10-14-2025 15:01-0400 Body buqmeftwrww37.8 [degF]Karmen Guy B2B OUTSIDE SALES REPRESENTATIVE Work Phone: [phone] [place], [place] 1774910-14-2025 15:01-0400 Body .29 kgHokaitlinray Wilkinsabdullahistephaniegael B2B OUTSIDE SALES REPRESENTATIVE Work Phone: 1(920)[address] [place], [place] 1774910-14-2025 15:01-0400 Diastolic blood hxiknrqz09 mm[Hg]Karmen Guy B2B OUTSIDE SALES REPRESENTATIVE Work Phone: 1(543)[address] [place], [place] 1774910-14-2025 15:01-0400 Heart rate79 /minHogabrielle Tovar B2B OUTSIDE SALES REPRESENTATIVE Work Phone: [phone] [place], [place] 1774910-14-2025 15:01-0400 SaO2% (BldA) [Mass fraction]96 %Karmenmonica Tovar B2B OUTSIDE SALES REPRESENTATIVE Work Phone: [phone])[address] [place], [place] 1774910-14-2025 15:01-0400 Systolic blood znjkiutk776 mm[Hg]Karmen Guy B2B OUTSIDE SALES REPRESENTATIVE Work Phone: [phone])[address] [place], [place] 1774909-04-2025 15:36-0400 Diastolic blood mxsaqzmn27 mm[Hg]Karmen Guy B2B OUTSIDE SALES REPRESENTATIVE Work Phone: 1(254)[address] [place], [place] 1774909-04-2025 15:36-0400 Heart rate90 /minKarmen Rgr B2B OUTSIDE SALES REPRESENTATIVE Work Phone: [phone])[address]09-04-2025 15:36-0400 SaO2% (BldA) [Mass fraction]98 %Karmen Guy B2B OUTSIDE SALES REPRESENTATIVE Work Phone: [phone] [place], [place] 0079509-04-2025 15:36-0400 Systolic blood xgtqcsab016 mm[Hg]Karmen Wilkinsgrace B2B OUTSIDE SALES REPRESENTATIVE Work Phone: 1(071)620-[address] [place], [place] 0079508-27-2025 10:55-0400 Diastolic blood ienbjwol78 mm[Hg]Karmen Guy B2B OUTSIDE SALES REPRESENTATIVE Work Phone: [phone])[address]08-27-2025 10:55-0400 Heart rate68 /Jose R Wilkinsabdullahistephanier B2B OUTSIDE SALES REPRESENTATIVE Work Phone: [phone])[address]08-27-2025 10:55-0400 Systolic blood lentxyge302 mm[Hg]Karmen Guy B2B OUTSIDE SALES REPRESENTATIVE Work Phone: [phone]08-07-2025 15:02-0400 Body .5 kgKarmen Rgr B2B OUTSIDE SALES REPRESENTATIVE Work Phone: 1([phone])[address]08-07-2025 15:02-0400 Heart rate84 /Jose R Rgr B2B OUTSIDE SALES REPRESENTATIVE Work Phone: [phone])[address]08-07-2025 15:02-0400 SaO2% (BldA) [Mass fraction]95 %Karmen Guy B2B OUTSIDE SALES REPRESENTATIVE Work Phone: [phone] [place], [place] 0079507-30-2025 15:53-0400 Body ohleko003.6 cmBenjamin Murcek DO Work Phone: [facility] CenterGwgrlolzzi68-34-1261 15:53-0400Body mass index (BMI) [Ratio]29.18 kg/z6Wjryzbcz Murcek DO Work Phone: [facility] CenterWyulgpuzqv32-35-6817 15:53-0400Body debwkm02.11 kgBenjamin Murcek DO Work Phone: 1(040)848-[address] [place], [place] [address]Khfoechjuc06-76-0400 15:50-0400Body jbarby123.6 cmBenwaldemar Betancourtk DO Work Phone: [phone] CenterZjtzyeoiez30-43-6121 15:50-0400Body mass index (BMI) [Ratio]29.18 kg/w9Ywnjhcni Murcek DO Work Phone: [phone] CenterRqvyytlvwb66-94-6566 15:50-0400Body zqozll96.11 kgBenwaldemar Betancourtk DO Work Phone: [phone] CenterAdrcmizfpv71-16-1292 17:14-0400Body temperature 98.1 [degF]Karmen Tovar B2B OUTSIDE SALES REPRESENTATIVE Work Phone: [phone]06-25-2025 17:14-0400 Diastolic blood xinryyuw18 mm[Hg]Karmen Tovar B2B OUTSIDE SALES REPRESENTATIVE Work Phone: 1(586)[address] [place], [place] 1774906-25-2025 17:14-0400 Heart rate73 /minHogabrielle Sadleracher B2B OUTSIDE SALES REPRESENTATIVE Work Phone: [phone])49153 [address]06-25-2025 17:14-0400 Respiratory rate16 /minKarmen Sadleracher B2B OUTSIDE SALES REPRESENTATIVE Work Phone: [phone])[address] [place], [place] 1774906-25-2025 17:14-0400 SaO2% (BldA) [Mass fraction]98 %Karmen Tovar B2B OUTSIDE SALES REPRESENTATIVE Work Phone: 1(960)[address] [place], [place] 1774906-25-2025 17:14-0400 Systolic blood okldlwei696 mm[Hg]Karmen Tovar B2B OUTSIDE SALES REPRESENTATIVE Work Phone: 1(271)[address] [place], [place] 1774906-25-2025 13:03-0400 Body ryeqvi315.56 cmHogabrielle Wilkinsrbacher B2B OUTSIDE SALES REPRESENTATIVE Work Phone: [phone]06-25-2025 13:03-0400 Body mgeqpl18.2 kgHokaitlinray Claudetterbacher B2B OUTSIDE SALES REPRESENTATIVE Work Phone: [phone])[address]06-20-2025 11:05-0400 Diastolic blood uoqhbaam01 mm[Hg]Karmen Guy B2B OUTSIDE SALES REPRESENTATIVE Work Phone: [phone] [place], [place] 0079506-20-2025 11:05-0400 Heart rate83 /minKarmen Claudetterbacher B2B OUTSIDE SALES REPRESENTATIVE Work Phone: [phone] [place], [place] 0079506-20-2025 11:05-0400 Respiratory rate16 /Howardgabrielle Wilkinsrbacher B2B OUTSIDE SALES REPRESENTATIVE Work Phone: [phone]06-20-2025 11:05-0400 SaO2% (BldA) [Mass fraction]94 %Karmen Guy B2B OUTSIDE SALES REPRESENTATIVE Work Phone: [phone])[address]06-20-2025 11:05-0400 Systolic blood spaipzhj428 mm[Hg]Karmen Guy B2B OUTSIDE SALES REPRESENTATIVE Work Phone: [phone] [place], [place] 17[address]906-20-2025 10:50-0400 Inhaled oxygen flow rate1 L/minKarmen Wilkinsrbacher B2B OUTSIDE SALES REPRESENTATIVE Work Phone: 1([phone] [place], [place] 1774906-20-2025 10:29-0400 Body ndkwgrdytkp45.4 [degF]Karmen Wilkinsgrace B2B OUTSIDE SALES REPRESENTATIVE Work Phone: 1(782)[address] [place], [place] 1774906-20-2025 06:46-0400 Body yvhbva922.56 cmKarmen Claudetterbacher B2B OUTSIDE SALES REPRESENTATIVE Work Phone: [phone]06-20-2025 06:46-0400 Body eyiibi84.1 kgKarmen Wilkinsrbacher B2B OUTSIDE SALES REPRESENTATIVE Work Phone: 1([phone] [place], [place] 1774905-16-2025 11:15-0400 Diastolic blood tierxobn01 mm[Hg]Karmen Arcenior B2B OUTSIDE SALES REPRESENTATIVE Work Phone: [phone]05-16-2025 11:15-0400 Heart rate67 /Howardgabrielle Wilkinsrbacher B2B OUTSIDE SALES REPRESENTATIVE Work Phone: 1([phone] [place], [place] 00[address]505-16-2025 11:15-0400 Respiratory rate18 /minKarmen Tovar B2B OUTSIDE SALES REPRESENTATIVE Work Phone: [facility]05-16-2025 11:15-0400 SaO2% (BldA) [Mass fraction]97 %Karmen Tovar B2B OUTSIDE SALES REPRESENTATIVE Work Phone: [facility]05-16-2025 11:15-0400 Systolic blood aqztukxt712 mm[Hg]Karmen Tovar B2B OUTSIDE SALES REPRESENTATIVE Work Phone: [facility]05-16-2025 08:07-0400 Body .56 cmKarmen Tovar B2B OUTSIDE SALES REPRESENTATIVE Work Phone: [facility]05-16-2025 08:07-0400 Body ycpmfo90.57 kgKarmen Tovar B2B OUTSIDE SALES REPRESENTATIVE Work Phone: [facility]04-28-2025 14:59-0400 Body xqnysv691.6 cmBenjamin Murcek DO Work Phone: 1([phone]-[facility] CenterHczhnzvero63-97-0190 14:59-0400Body mass index (BMI) [Ratio]29.52 kg/n7Xnflalry Murcek DO Work Phone: 1(100)896-[facility] CenterMuhxgueyhp15-24-6875 14:59-0400Body .02 kgBenjamin Murcek DO Work Phone: 1(578)163-[address] [place], [place] [address]Tqjbblrqwg12-91-9695 15:11-0400Body ekzuxd637.6 cmBenjamin Murcek DO Work Phone: [phone]-[facility] CenterXujstwohcn66-33-8375 15:11-0400Body mass index (BMI) [Ratio]29.52 kg/w5Waatvydc Murcek DO Work Phone: 1([phone])694-[facility] CenterBopodkkmpt17-43-2009 15:11-0400Body vwkksa85.02 kgBenjamin Murcek DO Work Phone: 1([phone])941-[address] [place], [place] [address]Iwuljuntsa05-59-5166 09:59-0500Body awnaxh790.6 cmAjose Schafermor INSPECTOR AND TESTER Work Phone: [facility]–Barry RoadZjrutxfhvh24-48-0117 09:59-0500Body mass index (BMI) [Ratio]29.52 kg/d1FrqfetDestiny Schafermor INSPECTOR AND TESTER Work Phone: NOS[facility]–Barry RoadQiidfnvilv57-93-2010 09:59-0500Body kxgmas49.02 kgDestiny Schafermor INSPECTOR AND TESTER Work Phone: NOSaint [facility]–Barry RoadVtijpwfeat20-72-5137 09:59-0500Diastolic blood dhyhhhvh17 mm[Hg]Destiny Schafermor INSPECTOR AND TESTER Work Phone: NOSaint [facility]–Barry RoadIxqnrpzsda39-60-7258 09:59-0500Systolic blood hzceszvn202 mm[Hg]Destiny Schafermor INSPECTOR AND TESTER Work Phone: NOSaint [facility]–Barry RoadHhzjsdpmje06-99-7368 13:34-0500Body ovlgdz634.56 cmHogabrielle Tovar B2B OUTSIDE SALES REPRESENTATIVE Work Phone: [facility]02-05-2025 13:34-0500 Body mass index (BMI) [Ratio]29.2 kg/a0JaujjiycKarmen Tovar B2B OUTSIDE SALES REPRESENTATIVE Work Phone: [facility]02-05-2025 13:34-0500 Body mfgryzladiq03.7 [degF]Karmen Tovar B2B OUTSIDE SALES REPRESENTATIVE Work Phone: [facility]02-05-2025 13:34-0500 Body anjimg10.11 kgKarmen Tovar B2B OUTSIDE SALES REPRESENTATIVE Work Phone: [facility]02-05-2025 13:34-0500 Diastolic blood mm[Hg]Karmen Tovar B2B OUTSIDE SALES REPRESENTATIVE Work Phone: [facility]02-05-2025 13:34-0500 Heart rate72 /minKarmen Tovar B2B OUTSIDE SALES REPRESENTATIVE Work Phone: [facility]02-05-2025 13:34-0500 SaO2% (BldA) [Mass fraction]98 %Karmen Wilkinsgrace B2B OUTSIDE SALES REPRESENTATIVE Work Phone: 1([phone])[address] [place], [place] 1774902-05-2025 13:34-0500 Systolic blood zispvgdh527 mm[Hg]Karmen Wilkinsabdullahistephaniegael B2B OUTSIDE SALES REPRESENTATIVE Work Phone: 1(004)[address] [place], [place] 1774901-09-2025 18:24-0500 Body xdoyee521.56 cmKarmen Wilkinsabdullahistephaniegael B2B OUTSIDE SALES REPRESENTATIVE Work Phone: 1(476)[address] [place], [place] 1774901-09-2025 18:24-0500 Body mass index (BMI) [Ratio]27.2 kg/d6HmzmlmshKarmen Sadleracher B2B OUTSIDE SALES REPRESENTATIVE Work Phone: 1(480)[address] [place], [place] 1774901-09-2025 18:24-0500 Body xwptgbjihmi31.3 [degF]Karmen Wilkinsgrace B2B OUTSIDE SALES REPRESENTATIVE Work Phone: 1(359)[address] [place], [place] 1774901-09-2025 18:24-0500 Body ixhdrs46 kgKarmen Rggael B2B OUTSIDE SALES REPRESENTATIVE Work Phone: 1(515)[address] [place], [place] 1774901-09-2025 18:24-0500 Diastolic blood ttkifpif67 mm[Hg]Karmen Wilkinsgrace B2B OUTSIDE SALES REPRESENTATIVE Work Phone: 1(885)[address] [place], [place] 1774901-09-2025 18:24-0500 Heart rate78 /Jose R Sadleracher B2B OUTSIDE SALES REPRESENTATIVE Work Phone: 1(246)[address] [place], [place] 1774901-09-2025 18:24-0500 Respiratory rate16 /minKarmen Rgr B2B OUTSIDE SALES REPRESENTATIVE Work Phone: 1(632)[address] [place], [place] 1774901-09-2025 18:24-0500 SaO2% (BldA) [Mass fraction]99 %Karmen Wilkinsgrace B2B OUTSIDE SALES REPRESENTATIVE Work Phone: 1(426)[address] [place], [place] 1774901-09-2025 18:24-0500 Systolic blood tyzukkam884 mm[Hg]Karmen Wilkinsabdullahistephaniegael B2B OUTSIDE SALES REPRESENTATIVE Work Phone: 1(835)[address] [place], [place] 1774912-18-2024 10:23-0500 Body zxitwy513.6 cmAngmariel Martinr INSPECTOR AND TESTER Work Phone: [facility] CenterZzsndcjzfl32-78-6599 10:23-0500Body mass index (BMI) [Ratio]28.67 kg/z9CfkjtdDestiny Martinr INSPECTOR AND TESTER Work Phone: [facility] CenterYbmowwzcha82-19-1059 10:23-0500Body ejlnag05.75 kgDestiny Martinr INSPECTOR AND TESTER Work Phone: [facility] CenterAzcifaeutu45-90-5184 10:23-0500Diastolic blood pjpqllip14 mm[Hg]Destiny Martinr INSPECTOR AND TESTER Work Phone: [facility] CenterPulxhwweww46-86-9306 10:23-0500Heart rate68 /min Destiny Martinr INSPECTOR AND TESTER Work Phone: [facility] CenterSsdogyatpi40-24-9184 10:23-0500Systolic blood tzgojisd040 mm[Hg]Destiny Martinr INSPECTOR AND TESTER Work Phone: [facility] CenterYyoqxegqef38-31-3211 12:55-0500Diastolic blood docmxoph68 mm[Hg]Karmenandrea Tovar B2B OUTSIDE SALES REPRESENTATIVE Work Phone: 1([phone])033-[address] [place], [place] 0079511-08-2024 12:55-0500 Heart rate60 /minKarmen Sadleracher B2B OUTSIDE SALES REPRESENTATIVE Work Phone: [phone] [place], [place] [id number] 12:55-0500 Respiratory rate14 /minKarmen Sadleracher B2B OUTSIDE SALES REPRESENTATIVE Work Phone: [phone] [place], [place] [id number] 12:55-0500 SaO2% (BldA) [Mass fraction]97 %Karmen Tovar B2B OUTSIDE SALES REPRESENTATIVE Work Phone: [phone] [place], [place] [id number] 12:55-0500 Systolic blood njgayokk782 mm[Hg]Karmen Tovar B2B OUTSIDE SALES REPRESENTATIVE Work Phone: [phone]11-08-2024 09:55-0500 Body dvuvyy550.56 cmKarmen Sadleracher B2B OUTSIDE SALES REPRESENTATIVE Work Phone: [facility]11-08-2024 09:55-0500 Body rqdnio74.57 kgKarmen Tovar APRN Work Phone: [facility]10-22-2024 12:12-0400 Body ccsinq465.6 cmWiharish Degrootdon DO Work Phone: [facility]10-22-2024 12:12-0400 Body mass index (BMI) [Ratio]29.18 kg/q3Xenrlbgharish Degrootdon DO Work Phone: [facility]10-22-2024 12:12-0400 Body ibjbid04.11 kgWiharish Degrootdon DO Work Phone: [phone])166-[address] [place], [place] [address]2010-22-2024 12:12-0400 Diastolic blood wmysthfj86 mm[Hg]Elfego Degrootdon DO Work Phone: [facility]10-22-2024 12:12-0400 Heart rate62 /minWiharish Degrootdon DO Work Phone: [facility]10-22-2024 12:12-0400 Systolic blood lkgataun753 mm[Hg]Elfego Mclean DO Work Phone: 1(580)277-[address] [place], [place] [address]702008-27-2024 10:42-0400 Body weoxje135.6 cmAjose Anders INSPECTOR AND TESTER Work Phone: [facility] CenterUagxzhtstp20-37-4569 10:42-0400Body mass index (BMI) [Ratio]28.67 kg/e0SbnefuDestiny Anders INSPECTOR AND TESTER Work Phone: [facility] CenterEsbkjvkony64-74-6317 10:42-0400Body ybozio05.75 kgDestiny Anders INSPECTOR AND TESTER Work Phone: [facility] CenterJtfasyflev99-44-4337 10:42-0400Diastolic blood plkjsamh54 mm[Hg]Destiny Anders INSPECTOR AND TESTER Work Phone: [facility] CenterEojkzsfiif58-04-5783 10:42-0400Heart rate70 /min Destiny Anders INSPECTOR AND TESTER Work Phone: [facility] CenterNkpjqwbaxr20-10-1703 10:42-0400Systolic blood mm[Hg]Destiny Chago INSPECTOR AND TESTER Work Phone: [facility] CenterYqwvxgbweu16-39-1171 10:59-0400Body yqnuzy701.56 [facility] 10:59-0400Body mass index (BMI) [Ratio]27.9 kg/l2WbljaqnqiCommunity Memorial Hospital08-19-2024 10:59-0400Body oxzcxl03.93 kgCommunity [facility]08-19-2024 10:59-0400Diastolic blood fziphqyx63 mm[Hg][facility]08-19-2024 10:59-0400 Heart rate72 /minCommunity [facility]08-19-2024 10:59-3352TjA8% (BldA) [Mass fraction]98 %[facility]08-19-2024 10:59-0400 Systolic blood elyklirv125 mm[Hg][facility]06-12-2024 14:33-0400Diastolic blood umrdmcit04 mm[Hg]Nathalie [address] [place], [place] 5156506-12-2024 14:33-0400Heart rate66 /minEly [address] [place], [place] 5156506-12-2024 14:33-0400Systolic blood mm[Hg]Nathalie [address] [place], [place] 5156508-11-2023 10:00-0400Body .56 cmIvethray Guy Other [employer] Other 08-11-2023 10:00-0400Body mass index (BMI) [Ratio] 29.18 kg/d5Fqffgbiu Viktoriyaacher Other [employer] Other 08-11-2023 10:00-0400Body cvcjec60.11 kgKarmen Viktoriyaacher Other [employer] Other 08-11-2023 10:00-0400Diastolic blood bfbnefjs52 mm[Hg] Karmen Tovar Other [employer] Other 08-11-2023 10:00-0400Systolic blood icjloepi190 mm[Hg] Karmen Tovar Other [employer] Other 07-28-2023 15:05-0400Body ezlgll940.56 cmLrandi Perry Other [employer] Other 07-28-2023 15:05-0400Body mass index (BMI) [Ratio] 28.66 kg/m7IaqfpkaMg Perry Other [employer] Other 07-28-2023 15:05-0400Body whyyrmdmjwp38.1 [degF]Mag Perry Other [employer] Other 07-28-2023 15:05-0400Body cbevdi87.75 kgMag Perry Other [employer] Other 07-28-2023 15:05-0400Diastolic blood oynupjvg38 mm[Hg] Mag Perry Other [employer] Other 07-28-2023 15:05-0400Respiratory rate18 /minMag Perry Other [employer] Other 07-28-2023 15:05-5121IsK3% (BldA) [Mass fraction]93 % Mag Perry Other [employer] Other 07-28-2023 15:05-0400Systolic blood wztmzuwn162 mm[Hg] Mag Quickley Other [employer] Other 03-28-2023 11:25-0400Body jsurss112.56 cmAmbluciana Rodríguez Other [employer] Other 03-28-2023 11:25-0400Body mass index (BMI) [Ratio] 28.42 kg/p5TpgnyKimberley Rodríguez Other [employer] Other 03-28-2023 11:25-0400Body qajjfbhetdt39 [degF]Kimberley Rodríguez Other [employer] Other 03-28-2023 11:25-0400Body fgmtmy92.12 kgKimberley Rodríguez Other [employer] Other 03-28-2023 11:25-0400Diastolic blood wzvvpfye78 mm[Hg] Kimberley Rodríguez Other [employer] Other 03-28-2023 11:25-0400Respiratory rate16 /minAmbluciana Rodríguez Other [employer] Other 03-28-2023 11:25-2176LgM4% (BldA) [Mass fraction]97 % Kimberley Rodríguez Other [employer] Other 03-28-2023 11:25-0400Systolic blood vvylazpb954 mm[Hg] Kimberley Rodríguez Other [employer] Other 01-23-2023 15:57-0500Body eezrog308.56 cmDO Osiel House Work Phone: [facility]01-23-2023 12:00-0500 Diastolic blood nnnqmfty77 mm[Hg]DO Osiel House Work Phone: 1(877)0-[address] [place], [place] 6125401-23-2023 12:00-0500 Heart rate78 /Vero Cartagena House Work Phone: 1(820)2-[address] [place], [place] 6125401-23-2023 12:00-0500 Respiratory rate16 /minDO Osiel House Work Phone: 1(216)[facility] [place], [place] 6125401-23-2023 12:00-0500 SaO2% (BldA) [Mass fraction]97 %DO Osiel Pettit Work Phone: 1(695)[address] [place], [place] 4815401-23-2023 12:00-0500 Systolic blood awdvgiwl691 mm[Hg]DO Osiel House Work Phone: 1(977)[address] [place], [place] 4815401-23-2023 08:00-0500 Body fhtjcoewwcb11.8 [degF]DO Osiel Pettit Work Phone: 1(837)[address] [place], [place] 4815401-23-2023 05:40-0500 Body worhty10.1 kgDO Osiel Pettit Work Phone: 1(329)[address]01-22-2023 21:52-0500 Body sdiglo234.56 cmDO Osiel [employer] Work Phone: 1(687)[address]01-22-2023 21:52-0500 Body fwtnskzcdyj09.8 [degF]DO Osiel Pettit Work Phone: 1(796)[address] [place], [place] 4815401-22-2023 21:52-0500 Body pyvuzi43.9 kgDO Osiel Pettit Work Phone: 1(517)8-[address] [place], [place] 6125401-22-2023 21:52-0500 Diastolic blood avlnusww65 mm[Hg]DO Osiel House Work Phone: 1(336)[address]01-22-2023 21:52-0500 Heart rate65 /minDO Osiel House Work Phone: 1(198)4-[address] [place], [place] 6125401-22-2023 21:52-0500 Respiratory rate16 /minDO Osiel House Work Phone: [facility]01-22-2023 21:52-0500 SaO2% (BldA) [Mass fraction]96 %DO Osiel Pettit Work Phone: [facility]01-22-2023 21:52-0500 Systolic blood mm[Hg]DO Osiel Pettit Work Phone: [facility]01-22-2023 00:00-0500 60 1Charles P House Work Phone: [phone]-Vomru [facility] DO Work Phone: Comment on above:MSOKXYXY2879-52-8633 15:05-0400Body yrrmhz008.56 cmAlupe Rodríguez Other [employer] Other 11-04-2022 15:05-0400Body mass index (BMI) [Ratio] 28.66 kg/e3WlokcKimberley Rodríguez Other [employer] Other 11-04-2022 15:05-0400Body sappfykibwg42.9 [degF]Kimberley Rodríguez Other [employer] Other 11-04-2022 15:05-0400Body .75 kgKimberley Rodríguez Other [employer] Other 11-04-2022 15:05-0400Diastolic blood nrafyvel07 mm[Hg] Kimberley Rodríguez Other [employer] Other 11-04-2022 15:05-0400Respiratory rate18 /minKimberley Rodríguez Other [employer] Other 11-04-2022 15:05-9936VgD6% (BldA) [Mass fraction]96 % Kimberley Rodríguez Other [employer] Other 11-04-2022 15:05-0400Systolic blood gdwkkdih669 mm[Hg] Kimberley Rodríguez Other nort [employer] Other 08-24-2022 15:58-0400Body .56 cmCharles Puuilo Work Phone: [phone]-Emmof [place] Jamii DO Work Phone: 1(558) 112-775308-24-2022 15:58-0400Body mass index (BMI) [Ratio] 28.32 kg/a4Bvbyevp P [employer] Work Phone: mp336-4728DV-Yjxmh [place] Jamii DO Work Phone: 1(638) 278-952208-24-2022 15:58-0400Body surface area Derived from formula1.8 v0Xpyzaqa Puuilo Work Phone: mp357-3398BS-Ulact [place] 250 DO Work Phone: 1(841) 696-150908-24-2022 15:58-0400Body zvwopb60.84 kgCharles P [employer] Work Phone: mp547-2447PD-Ifmki [place] 250 DO Work Phone: 1(824) 208-920208-24-2022 15:58-0400Diastolic blood jokwgfcz98 mm[Hg] Osiel P [employer] Work Phone: mp030-5336KT-Ksuwq [place] [address] DO Work Phone: 1(387) 647-487408-24-2022 15:58-0400Heart rate68 /minCharles P [employer] Work Phone: mp389-0268WI-Nvqgu [place] [address] DO Work Phone: 1(571) 423-660008-24-2022 15:58-0400Systolic blood isijhmza094 mm[Hg] Osiel P House Work Phone: mp002-3115UK-Gkcpc [place] 250 DO Work Phone: 1(715) 958-396808-23-2022 14:57-117640 1Charles P House Work Phone: [facility] Work Phone: Comment on above:MJZBJ94-96-5710 11:15-0500Body height 162.56 cmPeggy Shantanu Other [employer] Other 03-04-2022 11:15-0500Body mass index (BMI) [Ratio] 28.32 kg/d6Yzdue Fournier Other [employer] Other 03-04-2022 11:15-0500Body fxufosrrmit17.1 [degF]Jaeldamian Fournier Other [employer] Other 03-04-2022 11:15-0500Body bhbabq69.84 kgPeggbenjamin Fournier Other [employer] Other 03-04-2022 11:15-3657QmE5% (BldA) [Mass fraction]97 % Jaeldamian Fournier Other [employer] Other Encounters Encounter DateEncounter TypeCare ProviderFacilityStart: 03-24-2025 End: 71-90-6813afcqekvzquWcrznzow Rohrbacher APRN Work Phone: [facility] Work Phone: Start: 03-24-2025 End: 13-11-5749Otzebzq encounter procedureKarmen Tovar APRN [facility] Work Phone: Start: 03-12-2025 End: 96-77-8992yujvxibufhXyxwmhbxLisandra Tovar APRN Work Phone: [facility] Work Phone: Start: 03-12-2025 End: 68-40-0597Gpjcctl encounter procedureNicnely Luevano Fahad DO-[facility] [place] Work Phone: Start: 02-12-2025 End: 40-45-0350clkczblnftXqwhrglq Rohrbacher B2B OUTSIDE SALES REPRESENTATIVE Work Phone: [facility] Work Phone: Start: 02-12-2025 End: 10-25-1219Tbytijc encounter procedureNicole Bassem Fahad DO-[facility] [place] Work Phone: Start: 02-04-2025 End: 27-19-3654unlpogxqpwNttmcjjg Rohrbacher B2B OUTSIDE SALES REPRESENTATIVE Work Phone: [facility] Work Phone: Start: 02-04-2025 End: 88-91-9768Fqbsmpn encounter procedureDestiny Siddiqi B2B OUTSIDE SALES REPRESENTATIVE-[facility] [place] Work Phone: Start: 01-15-2025 End: 16-48-8996crnrzcihvfBixjgcni Rohrbacher B2B OUTSIDE SALES REPRESENTATIVE Work Phone: [facility] Work Phone: Start: 01-15-2025 End: 31-56-8288Bfwjzwq encounter procedureNicnely Luevano Fahad DO-[facility] [place] Work Phone: Start: 01-07-2025 End: 76-41-9298txrnhdvlffGHAUAAST W MURCEKNot AvailableStart: 01-07-2025 End: 36-02-5160Rljrpo follow up visit related to original pxBenjamin W Murcek DO Work Phone: NOOU Shanice OtolaryngologyComment on above:ALMA (obstructive sleep apnea) (Primary Dx)Start: 01-07-2025 End: 70-67-1501Nzcrnr flowsheetBenjamin W Murcek DO Work Phone: noms [facility] OtolaryngologyStart: 01-07-2025 End: 59-62-8661Zshwyz flowsheetBensholamin Edison Murcek DO Work Phone: noMS Prasad OtolaryngologyStart: 12-08-2024 End: 31-79-8278jgqsydagkiCFEDYFNC W MURJIEot AvailableStart: 12-08-2024 End: 27-63-1242Bxlkce follow up visit related to original pxBensholamin W Murcek DO Work Phone: noms ENT SANDUSKYComment on above:Obstructive sleep apnea (Primary Dx)Start: 12-08-2024 End: 62-39-0839Sycngd flowsheetBensholamin W Murcek DO Work Phone: noms ENT SANDUSKYStart: 12-08-2024 End: 40-40-3598Idmmnp flowsheetBensholamin W Murcek DO Work Phone: noms ENT SANDUSKYStart: 12-04-2024 End: 58-85-0581Cjfjjkn encounter Mackenzie Burt MD-Lab [facility] [place] Work Phone: Start: 12-04-2024 End: 70-04-6287gpvdlmweonGbskuhru Rohrbacher B2B OUTSIDE SALES REPRESENTATIVE Work Phone: [facility] Work Phone: Start: 83-15-2500Ydw-patient / Non-visitCatherine Erasmo [facility] Work Phone: Start: 12-03-2024 End: 79-54-2919Gdnahrxqx department patient visitJegabrielle Rgr B2B OUTSIDE SALES REPRESENTATIVE Work Phone: [phone]-Zxivgfgei Room Work Phone: Start: 11-28-2024 End: 35-46-4954huovllualgSPHZFJHD W MURJIEot AvailableStart: 11-28-2024 End: 30-66-3251Wpbizhvgv encounterBensholamin Edison Murcek DO Work Phone: NOMS ENT SANDUSKYStart: 11-28-2024 End: 93-96-1084Ctsloswnw to same day surgery centerBemaruy Beasley DO-[facility] CampusStart: 11-28-2024 End: 12-25-3813ikytnlgirqTfpllesj MurcekFacility:[facility] Hospitaltart: 11-21-2024 End: 98-62-8490Brwxsile Result EncounterBenwaldemar Beasley DO Work Phone: NOSB External Department UnsolicitedStart: 11-21-2024 End: 81-48-4923Lxkgvjkz Result EncounterBemaury Beasley DO Work Phone: noms External Department UnsolicitedStart: 11-21-2024 End: 40-39-5612Pkggatj encounter procedureBemaury Beasley JV-Ubh-Nsylvknt Testing Work Phone: Start: 11-21-2024 End: 49-63-5027gyrhbyaxazPpddlfwr José MiguelcristinaFacility:[facility] Hospitaltart: 00-17-6049Prtedkara for preprocedural laboratory examination Kilo Tong [facility] Physician GroupStart: 59-53-6581Vvy-patient / Non-visitAmy FaisalHaywood Regional Medical Center [facility] Work Phone: Start: 16-78-0852Yro-patient / Non-visitImad Carmel WOODS- [facility] Work Phone: Start: 10-24-2024 End: 32-76-2313Cxtdchzry to same day surgery centerEthan Burt MD-Digestive [facility] Work Phone: Start: 10-24-2024 End: 68-54-3359zvpdlzyamhPtxi AsaadFacility:[facility] Start: 37-42-9009Mgh-patient / Non-visitImabennett Burt MD-[facility] Work Phone: Start: 10-06-2024 End: 19-06-2778ugemhzqqnpLWBUBDVJ W MURCEKNot AvailableStart: 10-06-2024 End: 62-48-6034Kczrri outpatient visit 25 minutesBenjamin W Murcek DO Work Phone: noms ENT SANDUSKYComment on above:Obstructive sleep apnea (Primary Dx); Intolerance of continuous positive airway pressure (CPAP) ventilationStart: 10-06-2024 End: 39-37-6251Cvniyj flowsheetBenjamin W Murcek DO Work Phone: noms ENT SANDUSKYStart: 10-06-2024 End: 77-14-1738Nbiabp flowsheetBenjamin W Murcek DO Work Phone: noms ENT SANDUSKYStart: 09-29-2024 End: 31-92-5852fjyrkuuuefLOFZKPLL W MURCEKNot AvailableStart: 09-03-2024 End: 26-09-4796Tpcgjd outpatient new 45 minutesBenjamin W Murcek DO Work Phone: noms ENT SANDUSKYComment on above:Intolerance of continuous positive airway pressure (CPAP) ventilation (Primary Dx); ALMA (obstructive sleep apnea)Start: 09-03-2024 End: 33-87-3446epwuyrsjieBWVTPESW W MURCEKNot AvailableStart: 09-03-2024 End: 79-20-3778Zwfkso flowsheetBenjamin W Murcek DO Work Phone: noms ENT SANDUSKYStart: 09-03-2024 End: 12-80-9827Pfbxkt flowsheetBenjamin W Murcek DO Work Phone: noms ENT SANDUSKYStart: 08-28-2024 End: 84-58-1966vztteanovdHDTAHN HANHMORNot AvailableStart: 08-18-2024 End: 61-05-1475Vdolqbw encounter procedureKarmen Tovar B2B OUTSIDE SALES REPRESENTATIVE Work Phone: [facility] [place] Work Phone: Start: 08-18-2024 End: 23-63-3014vilhyddnkfNsdcgdfi Rohrbacher B2B OUTSIDE SALES REPRESENTATIVE Work Phone: [facility] Work Phone: Start: 08-06-2024 End: 45-80-6808Magzmq flowsheetNicole Fahad DO Work Phone: aNA SANDUSKYStart: 08-06-2024 End: 15-74-6834Rqkczu flowsheetNicole Fahad DO Work Phone: aNA SANDUSKYStart: 08-06-2024 End: 49-78-2848fvvmnudghwZQHKNV DANNERNot AvailableStart: 08-06-2024 End: 80-73-3957Jhkgqyk encounter procedureNicole Fahad DO Work Phone: aNA TANIKAYComment on above:Arm pain, left (Primary Dx); Numbness and tinglingStart: 07-31-2024 End: 42-19-7737Uztgtc flowsMike Anders INSPECTOR AND TESTER Work Phone: aNA BELLEVUEStart: 07-31-2024 End: 18-84-1539Zmwcue flowsheetDestiny Anders INSPECTOR AND TESTER Work Phone: aNA BELLEVUEStart: 07-31-2024 End: 41-53-8888Mvkldigqh encounterAngelucia Anders INSPECTOR AND TESTER Work Phone: aNA BELLEVUEStart: 07-31-2024 End: 52-57-0995Xpkcwn outpatient visit 25 minutesAngelucia Anders INSPECTOR AND TESTER Work Phone: aNA RAQUELUEComment on above:ALMA (obstructive sleep apnea) (Primary Dx); Paresthesia of right arm; Transient ischemic attack; Complicated migraine (CMS/HCC); Numbness and tingling; Pure hypercholesterolemia (CMS/HCC)Start: 07-31-2024 End: 47-47-8410muxgjfrxztEFBNAV GILLMORNot AvailableStart: 07-16-2024 End: 34-51-0862bgsuyrtsriSnnansad Rohrbacher B2B OUTSIDE SALES REPRESENTATIVE Work Phone: [facility] Work Phone: Start: 07-16-2024 End: 05-18-3062Yfgqgju encounter procedureKarmen Sadleracher B2B OUTSIDE SALES REPRESENTATIVE Work Phone: [facility] Work Phone: Start: 06-19-2024 End: 02-59-1244ribabmncskNvkrjhat Rohrbacher B2B OUTSIDE SALES REPRESENTATIVE Work Phone: [facility] Work Phone: Start: 06-19-2024 End: 95-50-2106Wqkhauj encounter procedureKarmen Sadleracher B2B OUTSIDE SALES REPRESENTATIVE Work Phone: [facility] Work Phone: Start: 05-28-2024 End: 25-88-3937Byodwm flowsheetAngelucia Anders INSPECTOR AND TESTER Work Phone: noms [place] [address] R[address]TEStart: 05-28-2024 End: 38-21-6549Cohhvt flowsheetAngela Chago INSPECTOR AND TESTER Work Phone: noms [address] R[address]TEStart: 05-28-2024 End: 11-52-0834Jzmqul outpatient visit 25 minutesAngelucia Anders INSPECTOR AND TESTER Work Phone: noms [address] ROUTEComment on above:ALMA (obstructive sleep apnea) (Primary Dx); Complicated migraine (CMS/HCC); Transient ischemic attack; Numbness and tingling; Carpal tunnel syndrome, leftStart: 05-28-2024 End: 37-73-9124pxygdgtstpWPQUJV LOUISRNot AvailableStart: 35-85-1451Wyj-patient / Non-visitKarmen Sadleracher B2B OUTSIDE SALES REPRESENTATIVE Work Phone: [facility] Gastroenterology Work Phone: Start: 04-18-2024 End: 63-05-3640Dwsfjhjwk to same day surgery centerKarmen Rgr B2B OUTSIDE SALES REPRESENTATIVE Work Phone: [facility] Work Phone: Start: 04-18-2024 End: 68-29-4591vqhfkjudjzCxafdhvf Rohrbacher B2B OUTSIDE SALES REPRESENTATIVE Work Phone: [facility] Work Phone: Start: 04-01-2024 End: 85-80-5446Rojjis outpatient visit [facility] Work Phone: uh [facility] CenterComment on above:Atherosclerosis of sokaogon coronary artery of sokaogon heart without angina pectoris; Status post angioplasty; TIA (transient ischemic attack); Body mass index (BMI) 29.0-29.9, adult; Current every day smoker; Hyperlipidemia, unspecified hyperlipidemia typeStart: 04-01-2024 End: 07-82-0166kerqhsijglNNJOZMEAscension [facility] AmbulatoryStart: 02-05-2024 End: 65-01-0560Mtwyad flowsMike Anders INSPECTOR AND TESTER Work Phone: noms [address] R[address]TEStart: 02-05-2024 End: 69-26-3952Ecrdmx flowsMike Anders INSPECTOR AND TESTER Work Phone: noms [address] R[address]TEStart: 02-05-2024 End: 89-36-9315yohmkdscplFFVCDW GILLMORNot AvailableStart: 02-05-2024 End: 44-69-9842Kjjjvx outpatient visit 25 minutesDestiny Anders NP Work Phone: noms [facility] ROUTEComment on above:ALMA (obstructive sleep apnea) (Primary Dx); Complicated migraine (CMS/HCC); Paresthesia of right arm; Paresthesia of foot, bilateral; Carpal tunnel syndrome, left; Transient ischemic attackStart: 2024 End: 55-24-0696Jdgoqgzfb Result EncounterDestiny Anders INSPECTOR AND TESTER Work Phone: noms External Department UnsolicitedStart: 2024 End: 17-51-3893Qrswsfeuw Result EncounterDestiny Anders INSPECTOR AND TESTER Work Phone: noms External Department UnsolicitedStart: 2024 Non-patient / Non-visitJennifer Rohrbacher B2B OUTSIDE SALES REPRESENTATIVE Work Phone: [facility] Work Phone: Start: 01-28-2024 End: 64-48-9477rcezksvntkWlfzlliamPremier Health Work Phone: Start: 01-28-2024 End: 37-19-7842Xhnjvqf encounter procedureHaywood Regional Medical Center [facility] Work Phone: Start: 11-21-2023 End: 77-20-4613nphvpljezdOJETEGTOur Lady of Mercy Hospitaltart: 11-21-2023 End: 95-92-0893Lkzodizgmt hospital visit by Jossy Prasad Stress Room 1 [facility] HospitalComment on above:Atherosclerosis of sokaogon coronary artery, unspecified whether angina present, unspecified whether sokaogon or transplanted heartStart: 05-07-2023 End: 42-78-3109srdxcluttuQiszhaxd Rohrbacher Other [employer] Other Start: 64-93-0142Llpupbwvb encounterJennifer RohrbacherFPG [facility] Centertart: 04-04-2023 End: 93-93-4882qinabosethCfgqjqci Rohrbacher Other [employer] Other Start: 50-90-4336Ltribfwky encounterJennifer RohrbacherFPG [facility] ClinicStart: 03-29-2023 End: 76-55-4140zymytqupfvLbhowcei Rohrbacher Other [employer] Other Start: 48-17-7171Ixxteikkm encounterJennifer RohrbacherFPG [facility] Centertart: 65-19-5785Ko Roman Murphy [facility] Work Phone: [phone]-Ncqhl [facility] DO Work Phone: Start: 25-48-8194Kw RenewalCharles P House Work Phone: [phone]-Rtbnv [facility] DO Work Phone: Start: 16-99-0965Crcjkxcvl encounterCharles P House Work Phone: [phone]-Nojbh [facility] DO Work Phone: Start: 27-18-6776EUNIROvofmib P House Work Phone: [phone]-Epxsp [facility] DO Work Phone: Start: 01-24-2023 End: 92-60-6455kzmregskymFfyywlds Rohrbacher Other [employer] Other Start: 62-64-8551Iliinjbxx encounterKarmen SadleracherElm City Vice Media CoStart: 01-19-2023 End: 35-98-6174kvqqhljfsfLsxvkeow Rohrbacher Other [employer] Other Start: 93-23-0325Hydbbaymp for general adult medical examination without abnormal findingsKarmen Samaritan HospitalacherFOhioHealth Doctors Hospital Start: 01-13-6567Krkkutr preventive medicine new patient 40-64yrsJegabrielle Samaritan HospitalacheCarbon County Memorial Hospital - Rawlinstart: 01-05-2023 End: 79-41-8361aviydblhpqAdbllb Bailey Other [employer] Other Start: 58-26-9873Qfglwa outpatient visit 15 minutes Mag [facility] ClydeStart: 05-61-0357Qk RenewalCharles P House Work Phone: [phone]-Jvoyo [facility] DO Work Phone: Start: 10-98-0907umjsbcvnzoYo. Charles Trevon [place] Facility:[id number]: 09-07-2022 End: 87-25-8110msadmnyleyWcswi Keller Other [place] [employer] Other Start: 01-97-6852Yflcnuazq encounterAmber MarcosG Urgent Care Sandy RoadStart: 69-72-0351Noyppj outpatient visit 15 minutesAmber Winnie [facility] ClydeStart: 09-05-2022 End: 49-40-8791rimwqhithbEG Osiel [place] Work Phone: [facility] Work Phone: Start: 09-05-2022 End: 96-82-0989Hqhvglvr ReferredDO Osiel [place] Work Phone: [facility]-Lab [facility] [place] Work Phone: Start: 08-25-2022 End: 29-30-8553bzvsslpqagHD OSIEL CHISHOLMFacility:D9Vrtdt: 68-83-5930Cc Renewal Osiel Murphy [place] Work Phone: [phone]-Wscmr [facility] DO Work Phone: Start: 32-28-3288zuguelmsmnUqebd R FAZIOFacility: BellevueStart: 72-00-7358Vy RenewalCharnorwalk hospital P [place] Work Phone: [phone]-Yqddw [facility] DO Work Phone: Start: 07-02-2022 End: 19-42-5360Gmtjsaqimk and management of inpatientDO Osiel [place]on Work Phone: [facility] Work Phone: Start: 07-02-2022 End: 91-33-4559jfbbmqoujsu encounterDO Osiel [place] Work Phone: [facility] Work Phone: Start: 42-08-9731rgbuinmhjjYcmkj FAZIOFacility: BellevueStart: 05-17-2022 End: 14-44-2937rlqskoudomWU DIANA RAMIREZFacility:R6Drcxy: 04-20-2022 End: 62-39-3981kwadvfxsjhKT OSIEL EPTTITFacility:K0Myjpp: 22-09-6102Bc Renewal Osiel P House Work Phone: [phone]-Vdphj [facility] DO Work Phone: Start: 04-14-2022 End: 93-56-1368qkufyyghryOspzf [place] [facility] [employer] Other Start: 79-22-7467Drjhtq outpatient visit 25 minutes [facility]G [facility] ClydeStart: 30-17-4297Op RenewalCharles P House Work Phone: [phone]-Pykdq [facility] 250 DO Work Phone: Start: 87-67-8718Xiyfugrra encounterCharles P House Work Phone: [phone]-Ugcfj [facility] 250 DO Work Phone: Start: 50-25-0118jyjmdhvgkjSc. Jeromeadolfo Pelaez Facility:[id number]: 54-60-0222Yj RenewalCharles P House Work Phone: [phone]-Aaywx [facility] DO Work Phone: Start: 05-94-5903Lqhfcihop for general adult medical examination without abnormal findingsDR OSIEL [facility] HospitalStart: 10-69-6663ehentcgtjkXl. Jerome Brooke PelaezFacility:[id number]: 02-01-2022 Office outpatient visit 15 minutesCharles P House Work Phone: [phone]-Sdyli [facility] 600 DO Work Phone: Start: 08-01-1623Ygviete encounter procedureCharles P House Work Phone: [phone]-Lxiou [facility] DO Work Phone: Start: 01-31-2022 End: 85-67-4268vlelkepwxjNZ OSIEL HOUSEFacility:F9Kpsvf: 01-31-2022 End: 07-58-1448Jkzxgclbo for general adult medical examination without abnormal findingsDR OSIEL PETTITFacility:X2Ewucj: 84-00-1989Eq RenewalCharles P House Work Phone: [phone]) [phone]-Wnbrz [facility] 250 DO Work Phone: Start: 36-14-2904Yt RenewalCharles P House Work Phone: [phone]-Ccfkn [facility] 250 DO Work Phone: Start: 36-89-9135Pe ChangeCharles P House Work Phone: [phone]-Jubll [facility] 250 DO Work Phone: Start: 37-06-1262Jx ChangeCharles P House Work Phone: [phone]) [phone]-Etqzq [facility] 600 DO Work Phone: Start: 10-53-8196Kkysjsdft encounterCharles P House Work Phone: [phone]) [phone]-Qttsq [facility] 250 DO Work Phone: Start: 98-84-6346Ng RenewalCharles P House Work Phone: [phone]-Wlsdg [facility] 250 DO Work Phone: Start: 00-41-0866Nsvaoydda encounterCharles P House Work Phone: [phone]-Jtvsz [facility] DO Work Phone: Start: 08-12-2021 End: 83-92-8231zioclvwwezEzpvk Hart [facility] [employer] Other Start: 88-89-1293Onulib outpatient visit 15 minutes [facility] ClydeStart: 62-42-4480Tt RenewalCharles P House Work Phone: [phone]-Auvrq [facility] DO Work Phone: Start: 06-56-6395Hnqzhaz encounter procedurePROVIDER UNKNOWNFacility:1532Patient encounter statusCharles P House Work Phone: [phone]-Ychzo [facility] DO Work Phone: Procedures DateProcedureProcedure DetailPerforming ClinicianStart: 11-28-2024 Neurostimulation of cranial nerveJennifer Claudetteabdullahiacher B2B OUTSIDE SALES REPRESENTATIVE Work Phone: Start: 58-74-7971Vzljz metabolic panel calcium total Kilo W Ramos DO Work Phone: start: 80-73-9040Ckzvqmot blood count with white cell differential, automatedBenjamin W Ramos DO Work Phone: start: 44-30-7948RtnxqszefrrTvoamuii Viktoriyaacher B2B OUTSIDE SALES REPRESENTATIVE Work Phone: Start: 08-06-2024 End: 48-31-3492Jfujso emg ea extremty w/paraspinl area completeNicole Fahad DO Work Phone: Start: 13-09-0534Rfzmt Strep (POC)Karmen Tovar B2B OUTSIDE SALES REPRESENTATIVE Work Phone: Start: 80-77-0883LquqrqahepxliqyojxwxbgwxdlAchobedw Claudetterbacher B2B OUTSIDE SALES REPRESENTATIVE Work Phone: Start: 46-48-5562NrnwidmvnvzAfbuwp Louisr INSPECTOR AND TESTER Work Phone: Start: 71-72-4027CHJ FOLIC ACIDAngela Hanhmor INSPECTOR AND TESTER Work Phone: Start: 91-60-4239BYQ VITAMIN F23Yvzcut Louisr INSPECTOR AND TESTER Work Phone: Start: 34-67-2440Nl strs tst xers&/or rx cont ecg trcg onlyWilliam S Vinay DO Work Phone: Start: 48-12-0043HyilxwudestHjxcxl Chago INSPECTOR AND TESTER Work Phone: Start: 35-08-9381Vszfklloagt observation [Identifier] in Cervix by Cyto stainBenwaldemar Ramos DO Work Phone: start: 00-31-8450DKG of headDO Osiel Trenton Work Phone: Start: 53-85-5055YP angiography of headDO Osiel Trenton Work Phone: Start: 65-78-7683ZN angiography of neck vesselsDO [employer] Work Phone: Start: 18-16-6255HC of head without contrastDO [employer] Work Phone: Start: 28-49-0962Gitvy chest X-rayDO [employer] Work Phone: Start: 37-05-9854Uwoyu cultureDO [employer] Work Phone: Start: 90-23-0203Ivziyveftpw observation [Identifier] in Cervix by Cyto stainEly 1Start: 39-08-3460LenrnxenuyrXsa 1Cesarean section Osiel [employer] Work Phone: [facility]olecystectomyCh[facility]orwalk hospital P [employer] [employer] Work Phone: History of percutaneous transluminal coronary angioplastyHistory of PTCA 1Comment on above:Problem List clean-up per request of Phys. EHR CmteHistory of placement of stent for coronary artery disease Karmen Tovar Other HysterectomyCharles P [employer] Work Phone: Total colonoscopyCharles P [employer] Work Phone: Plan of Treatment DateCare ActivityDetailAuthorStart: 49-34-9151Csvtucqym for malignant neoplasm of cervixNOMS HealthcareStart: 04-21-2025 End: 28-08-9191Zymimpr encounter emndlhsmr66/11/2025 3:30 PM EST Office Visit [facility] [address] [place] [address] Elfego Mclean, [address] [facility] [address] [place] [address] [facility] HospitalStlawsonville: 13-03-4429Hbkkcnvyb for malignant neoplasm of cervixCleveland ClinicStlawsonville: 64-37-9996Zpccskcuy for malignant neoplasm of breastMammogramLAKEVIEW HOSPITAL HealthcareStart: 02-09-2025 Influenza vaccinationLAKEVIEW HOSPITAL HealthcareStart: 98-88-4955Rwrxhjwsh for malignant neoplasm of colonCleveland ClinicStlawsonville: 01-07-2025 End: 10-50-7767Susxgwe encounter /30/2025 3:45 PM EDT Office Visit [facility] [place] [address] [place] [phone] Kilo Beasley DO [address] [place] [address] [facility] ENT SANDUSKYStart: 12-08-2024 End: 60-51-7208Rqnzuah encounter hrrevxmzo19/30/2025 3:45 PM EDT Office Visit NOMRicardo SAGASTUMEY [address] [place] [phone] Kilo Beasley DO [address] [place] [address] [facility]OM[facility] ENT SANDUSKYStart: 20-88-3796OahcknmbqGenesis Hospitaltart: 22-29-0174HqtolxyafGenesis Hospitaltart: 82-40-3466BrkserqwfGenesis Hospitaltart: 11-27-2024 End: 83-03-2139Dfthuqe encounter /19/2025 11:00 AM EDT Office Visit [facility] [place] [address] [facility] [address] [place] [phone] Destiny Anders, INSPECTOR AND TESTER [address] [place], [place] CHETAN SAGASTUMEYStart: 48-22-7916ZhiogfsgyGenesis Hospitaltart: 09-03-2024 End: 40-21-4402Qkuygwl encounter xambxfyqr30/26/2025 3:00 PM EDT Office Visit [facility] [place] [address] [place] [phone] Kilo Beasley DO [address] [place] [address] ALMA (obstructive sleep apnea)[facility] ENT TANIKAYComment on above:ALMA (obstructive sleep apnea)Start: 08-28-2024 End: 01-30-5682Apzolas encounter zsyepchck67/20/2025 2:40 PM EDT Office Visit CHETAN KUHN [address] [place] [address] Destiny Anders, INSPECTOR AND TESTER [address] [place] CHETAN KELLYtart: 25-93-6240DT Brain WO contrastGenesis Hospitaltart: 12-62-9322RHI of headMR head/brain wo [facility]: 08-06-2024 End: 20-64-6232Bwiaoeg encounter ifafanzyl62/26/2025 9:00 AM EST Procedure Visit [place]TAN [place] [address] [address] [place] [phone] Hui Vásquez, DO [address] [place], [place] [phone] CHETAN SAGASTUMEYStart: 07-31-2024 End: 89-50-3659WE Brain WO contrastMR brain wo contrast Imaging Routine Numbness and tingling Expected: 07/31/2024 (Approximate), Expires: 07/31/2025NOMS HealthcareComment on above:Expected: 07/31/2024 (Approximate), Expires: 07/31/2025Start: 07-31-2024 End: 15-91-7567Vdbsazg encounter procedureNOMS [place] MCDONOUGH ROUTEComment on above:ArrivedStart: 05-28-2024 End: 00-79-9136QU Brain WO contrastMR brain wo contrast Imaging Routine Transient ischemic attack Numbness and tingling Expected: 05/28/2024 (Approximate), Expires: 05/28/2025[facility] Work Phone: comment on above:Expected: 05/28/2024 (Approximate), Expires: 05/28/2025Start: 05-28-2024 End: 33-62-3661Nftcelt encounter thfjvgfce69/18/2024 10:20 AM EST Office Visit NOMRicardo [address] [place] [address] Destiny Anders INSPECTOR AND TESTER [address] [place], [place] ArrivedNOMS [place] MCDONOUGH ROUTEComment on above: ArrivedStart: 05-27-2024 End: 11-79-7876Ueginps encounter dhdennymb84/17/2024 1:20 PM EST Office Visit NOMS [place] [address] [place] [phone] Destiny Anders, INSPECTOR AND TESTER [address] [place], [place] NOMRicardo KUHN [facility] ROUTEStart: 73-33-3337PxpenhntyGenesis Hospitaltart: 73-34-3171Elsmygymc for malignant neoplasm of breastMammogramNOWV HealthcareStart: 51-59-7094YVVML-19 Vaccine ( season)COVID-19 Vaccine ( season)[facility] Start: 03-84-3300Hpdkzqhfb vaccinationCleveland ClinicStart: 02-05-2024 End: 77-02-0231Rtktlnm encounter zgaboknxq27/27/2024 10:40 AM EDT Office Visit [facility] [place] [address] [place] [phone] Destiny Anders, ALF [address] [place] [address] [facility] ROUTEStart: 98-20-2788JAB, Provider: Elfego Mclean, Status: Pen, Time: 9:00 AMFUV, Provider: Elfego Mclean, Status: Pen, Time: 9:00 AM-[facility] 250 DO Work Phone: Start: 12-05-2023 End: 00-83-3595Rmlhrpj encounter /26/2024 9:00 AM EDT Office Visit [facility] [address] [facility] [address] [place] [address] Elfego Mclean S, DO [address] [facility] [address] [place] [address] [facility] HospitalStart: 70-42-4926KSUYFU MIC, Provider: [place] HHVI NUCLEAR 01,[id number], Status: Pen, Time: 11:30 [facility]MSGALLUP [facility], Provider: [place] HHVI NUCLEAR 01,[id number], Status: Pen, Time: 11:30 [facility] 250 DO Work Phone: Start: 99-60-7797JESOP-19 Vaccine ( season) COVID-19 Vaccine ( season)[facility] ClinicStart: 08-12-0648Ionkmzbg identified in Urine by CultureUrine St. Francis Hospitaltart: 18-69-8326DDT, Provider: Elfego Mclean, Status: Pen, Time: 9:50 AMFUV, Provider: Elfego Mclean, Status: Pen, Time: 9:50 AMMPWays[facility]-[place] 250 DO Work Phone: Start: 49-05-6549Glkbp panelGenesis Hospitaltart: 07-03-2022 End: 50-84-4712WqrboaejmGenesis Hospitaltart: 43-32-2373Ojtiqhip therapy procedureGenesis Hospitaltart: 42-45-4241Pavjoavo to occupational therapistGenesis Hospitaltart: 76-51-4932Uninjncs to speech and language therapy serviceGenesis Hospitaltart: 30-91-7209Rahymyzz admissionGenesis Hospitaltart: 07-02-2022 MRI of headMR head/brain wo [facility]: 75-18-5766Buxccqax to neurologistGenesis Hospitaltart: 98-05-5410AuovhheopGenesis Hospitaltart: 56-55-9195SZ angiography of headGenesis Hospitaltart: 19-08-7263NM angiography of neck vesselsGenesis Hospitaltart: 22-24-9144SM Head WO contrast [facility] Hospitaltart: 84-16-7747XA of head without contrastCT head stroke alert wo [facility] Hospitaltart: 29-76-0329Uklef chest X-rayXR chest 1V portableGenesis Hospitaltart: 95-01-9550LN Chest Single viewGenesis Hospitaltart: 07-02-2022 Bacteria identified in Urine by CultureUrine CultureGenesis Hospitaltart: 08-14-9618Crvcp cultureUrine CultureGenesis Hospitaltart: 04-05-5058OSHZBR MIC, Provider: [place] HHVI NUCLEAR ,[id number], Status: Pen, Time: 11:00 AMSTRESS MIC, Provider: [place] HHVI NUCLEAR ,[id number], Status: Pen, Time: 11:00 [facility]-[place] 250 DO Work Phone: Start: 14-46-5253ZRE, Provider: Jerome Michel, Status: Pen, Time: 3:30 PMFUV, Provider: Jerome Michel, Status: Pen, Time: 3:30 PMK[facility]son [facility]-[place] 250 DO Work Phone: Start: 35-99-6105GUK, Provider: Jerome Michel, Status: Pen, Time: 3:30 PMFUV, Provider: Jerome Michel, Status: Pen, Time: 3:30 PMMP-[facility] ClinicMet[facility] 250 DO Work Phone: Start: 91-22-4899JIK, Provider: Elfego Mclean, Status: Pen, Time: 10:50 AMFUV, Provider: Elfego Mclean, Status: Pen, Time: 10:50 AMLake Region Hospitalusky 250 DO Work Phone: Start: 61-93-7082HGG, Provider: Elfego Mclean, Status: Pen, Time: 10:10 AMFUV, Provider: Elfego Mclean, Status: Pen, Time: 10:10 AMChildren[facility] MinnesotaSh[facility] DO Work Phone: Start: 52-58-5607Ydagxk Vaccines (1 of 2)Zoster Vaccines (1 of 2)[facility]: 36-59-5623Sceaptpxd for malignant neoplasm of breastMammogramUnMorrow County Hospital: 88-20-2404Ynlgofzhl for malignant neoplasm of cervixHPV/CotestNOMS Healthcare Start: 85-24-2372MMpW/Tdap/Td Vaccines (1 - Tdap)DTaP/Tdap/Td Vaccines (1 - Tdap)[facility]: 53-67-2910Njoikhfxr for malignant neoplasm of cervixHPV/CotestUnMorrow County Hospital: 1989 Hepatitis B Vaccines (1 of 3 - 19+ 3-dose series)Hepatitis B Vaccines (1 of 3 - 19+ 3-dose series)[facility]: 94-29-6532Ljfxg screening for proteinDiabetes: Urine Protein ScreeningGeorgetown Behavioral Hospital: 98-22-8110Joabmsqdk C screeningHepatitis C ScreeningUnMorrow County Hospital: 68-63-9284Lqixlslh foot examinationDiabetes: Foot ExamUnMorrow County Hospital: 93-77-4808Afarbqxg screening Diabetes: Retinopathy ScreeningGeorgetown Behavioral Hospital: 01-80-2523Zhkgfyxcdykh Vaccine: Pediatrics (0 to 5 Years) and At-Risk Patients (6 to 64 Years) (1 of 2 - PCV)Pneumococcal Vaccine: Pediatrics (0 to 5 Years) and At-Risk Patients (6 to 64 Years) (1 of 2 - PCV)[facility]: 42-84-1150RKV Vaccines (1 of 1 - Standard series)MMR Vaccines (1 of 1 - Standard series)[facility]: 1970 Hemoglobin A1c measurementDiabetes: Hemoglobin U0BVljnyufpbpGeorgetown Behavioral Hospital: 22-03-9209FSZ screeningHIV ScreeningGeorgetown Behavioral Hospital: 97-11-0020Ytxie panelLipid PanelUnMorrow County Hospital: 45-50-2807Bvjbtybki for malignant neoplasm of colonUnMorrow County Hospital: 47-72-2082Kfhbkf Adult PhysicalYearly Adult PhysicalUnHolzer Health SystemComprehensive metabolic 2000 panel - Serum or PlasmaCommunity Memorial HospitalEMG 2 ExtremitiesEMG 2 Extremities Neurology Routine Paresthesia of right arm Ordered: 07/31/2024NOWV Healthcare Work Phone: comment on above:Ordered: 07/31/2024Helicobacter pylori Ag [Presence] in Stool by ImmunoassayCommunity Memorial Hospital Patient EducationA[facility] Work Phone: Patient referralAdena Regional Medical [facility] Work Phone: [facility] Immunizations Immunization DateImmunizationNotesCare XtjfrdjgZutvkfyu64-31-0983Hdhyiob COVID- 19 Vaccine 100 MCG/0.5ML Intramuscular SuspensionCharles P House Work Phone: [phone]-TqfuiCommunity Memorial Hospital 250 DO Work Phone: [phone] bad don't usePeggy Fournier Other [place] [employer] Other [id number] bad don't usePeggy Fournier Other [facility] Payers DatePayer CategoryPayerPolicy [id number] Member Subscriber Plan / Payer (Effective 2023-Present) Name: Shefali Tillman Relation to Subscriber: Self Name: Shefali Tillman PayerID: Not on file Type: Not on file Address: [address] [place] [id number] Scott and [facility] Member Subscriber Plan / Payer (Effective 2023-Present) Name: Shefali Tillman Relation to Subscriber: Self Name: Shefali Tillman Payer ID: [id number] (IC) Type: Not on file Address: [id number] [place], [place] [id number] 28-45-1905Fiepeuj413804Rcbgsdc83-71-5854KetazvdWGJ44[id number] 2..1.838948.3.579.2.81941-34-5872Mhbuqij63775779 2..1.809418.3.579.2.557060-30-6093Apdyvyi57223861 2..1.866014.3.579.2.89831-06-8426Lvnuseq293229923 2..1.166281.3.579.2.73752-40-3779Vfangbp104592239 2..1.814395.3.579.2.36977-65-5745Mtabfpv8676492 2.16840.1.476458.3.579.2.63730-36-0793Orimnon8973087 2.840.1.012350.3.579.2.76258-45-5633Snwwgeu6950287 2.16840.1.865927.3.579.2.82282-97-0308Mbcmqtn56416542 2.840.1.461768.3.579.2.843909-49-7634Xnwhznq63074087 2.0.1.823379.3.579.2.382769-06-5596Jencygc86148015 2.840.1.378314.3.579.2.908810-77-5054Uaerlns79298966 2.0.1.578149.3.579.2.743016-14-4631Wknmygv2727256 2.0.1.254304.3.579.2.435537-64-1519Raobenv3481398 2.0.1.497210.3.579.2.739450-79-4996Emupxoi0364150 2.0.1.486221.3.579.2.586808-64-6716Rxfveqp2776244 2.0.1.699121.3.579.2.821529-91-9999Ycikmxw4527384 2.840.1.354542.3.579.2.396842-54-7602Emjdztp5906195 2.0.1.365664.3.579.2.925881-20-3415Pscdpmz7258382 2.840.1.778059.3.579.2.444502-73-1008Nuyrhoa9706120 2.840.1.805105.3.579.2.389587-81-5774Nyamzlp255102676 2.16.840.1.655593.3.579.2.204558-27-5199Ovcm-yku uq91269t-9046-63py-27t0-22of846228g967-16-9801NkfqmycJNO441603763Xyclcxm3821084 2.16.840.1.182994.3.579.2.613Yefhtld79858038 2.16.840.1.703436.3.579.2.531 Kgaxuvj77147008 2.16.840.1.722581.3.579.2.715Vyxequq34170854 2.16.840.1.792978.3.579.2.600Hlwyzqm81652096 2.16.840.1.905701.3.579.2.531 Nyzrzgo23568926 2.16.840.1.740776.3.579.2.115Swxxbfv99020786 2.16.840.1.103740.3.579.2.489Bfpczzj66962487 2.16.840.1.618505.3.579.2.531 Social History DateTypeDetailFacilityStart: 08-20-2023 End: 54-37-6537Gbqlqu alcohol useSocial alcohol use-[facility] 250 DO Work Phone: Comment on above:SMOKES ABOUT 1 PPD;Start: 08-20-2023 End: 25-92-9100Jjm Assigned At [facility] [employer] Other Start: 07-02-2022 End: 07-09-6088Ytefnot smoking status NHISSmoker (finding)[facility]: 08-18-7034Cjg Assigned At [facility]: 07-03-2022 End: 98-93-0623Qrjhgfu smoking status NHISCurrent some day smokerFirelands Regional Medical CenterStart: 08-20-2023 End: 91-88-5586Lilpwmf smoking status NHISSmokes tobacco dailyUnHolzer Health System Work Phone: History of tobacco useCigarette SmokerC[facility] Clinic Work Phone: Start: 08-20-2023 End: 42-34-3698Gfeymijwf beverage intakeCurrent drinker of alcohol (finding) [facility] Work Phone: Start: 71-67-8156Qesewxc CommentsocialUnHolzer Health System Work Phone: Start: 53-45-0737Wmm assigned at birthNot on file [facility] Work Phone: Start: 11-11-2023 End: 82-88-1369Jcoliomw to SARS-CoV-2 (event)Not sureCleveland ClinicStart: 84-22-6780Vtwfqqi use and exposureSmokeless tobacco non-user [facility] Work Phone: Start: 04-18-2024 End: 79-73-6370BqbUaxczs (finding)[facility] Hospitalt[facility]: 53-14-5494Rbedshj smoking status NHISEx-smokerNOMS HealthcareHow often to you have a drink containing alcohol?2-3 time sa weekNOMS HealthcareHow many standard drinks containing alcohol do you have on a typical day?3 or 4NOMS HealthcareHow often do you have 6 or more drinks on 1 occasion?Less than monthlyNOMS HealthcareStart: 95-86-1210Mcicjcp CommentCaffeine: 1-2 cups/day coffeeNOWV Healthcare Medical Equipment Procedure CodeEquipment CodeEquipment Original TextEquipment IdentifierDates Implantation of hypoglossal nerve stimulator ()[id number] FDAStart: 09-94-0755Tevbdhezyhhu of hypoglossal nerve stimulatorImplantable sleep apnoea treatment system, respiration-sensing()[id number] FDAStart: 11-28-2024 Implantation of hypoglossal nerve stimulator ()[id number] FDAStart: 76-40-6189Fbkb-eluting coronary artery stent, bip-xfxbqnnvgzvlj-rrhtaiv-coated ()[id number] FDAStart: 91-87-6231Otpgjxx artery closure plug/patch, synthetic polymer()[id number] FDAStart: 07-01-2019 Goals DatePatient GoalDesired Activity/State Functional Status AtycDsdlpjlwpnNylzhkVjsmgxmh47-01-1140Ipcgzrafqn statusPatient at Baseline [facility] Work Phone: Mental Status CtrrNiubrtnxczBhhncuNwugueyj15-36-2113Ueklrwdrz functionCognitive Status Patient at BaselineAvita Health System [facility] Work Phone: Clinical Notes 2019 to 01-15-2025 Note Date & SaxsCkluEglbtoje28-95-2693 Evaluation note* Diagnosis Onset Date Resolution Status Admit Date ALMA (obstructive sleep apnea) acuteAugust 2024 2:55pm [facility] Work Phone: 1(871) 423-916208-07-2025 Evaluation note* Diagnosis Onset Date Resolution Status Admit Date ALMA (obstructive sleep apnea) acuteAugust 2024 2:55pmParesthesiasacuteAugust 2024 10:40amTIA (transient ischemic attack)acuteAugust 2024 10:40am [facility] Work Phone: 1(365) 492-611908-07-2025 Evaluation note* Diagnosis Onset Date Resolution Status Admit Date ALMA (obstructive sleep apnea) acuteAugust 2024 2:55pmParesthesiasacuteAugust 2024 10:40amTIA (transient ischemic attack)acuteAugust 2024 10:40amHypersomniaacute February 12, 2025 3:29pmOSA (obstructive sleep apnea)acuteSept2024 3:29pm [facility] Work Phone: 1(596) 670-947808-07-2025 Evaluation note* Diagnosis Onset Date Resolution Status Admit Date ALMA (obstructive sleep apnea) acuteAugust 2024 2:55pmParesthesiasacuteAugust 2024 10:40amTIA (transient ischemic attack)acuteAugust 2024 10:40amHypersomniaacute February 12, 2025 3:29pmOSA (obstructive sleep apnea)acuteSept2024 3:29pmHypersomniaacuteOctober 2024 3:31pmOSA (obstructive sleep apnea)acute March 12, 2025 3:31pmAnxietyacuteOctober 2024 2:47pm [facility] Work Phone: 1(229) 688-952107-30-2025 History of Present illness Narrative* Kilo Beasley DO - 01/07/2025 3:45 PM EDT HPI Patient presents today 1 month postop inspire implantation. She is doing great. Relevant postoperative physical examination Examination of both incision shows that they are healing very nicely and beginning to settled down. Assessment/plan Shefali was seen today for post-op. Diagnoses and all orders for this visit: ALMA (obstructive sleep apnea) (Primary) Comments: Patient is scheduled for activation in the near future, I will see her back as needed documented in this encounterKansas City VA Medical CenterZmfphmgqgc38-64-9525 History of Present illness Narrative* Kilo Beasley DO - 12/08/2024 3:45 PM EDT HPI Patient presents today 1 week postop inspire implantation. She is doing fine. Relevant postoperative physical examination Examination of the neck and chest incision shows that they are intact, no evidence of hematoma seroma, cellulitis or other abnormality. Tongue is straight when protruded from the mouth. Assessment/plan Shefali was seen today for post-op. Diagnoses and all orders for this visit: Obstructive sleep apnea (Primary) Comments: Patient given wound instructions, I will see her back in a month. documented in this encounterKansas City VA Medical CenterUskngoczul44-59-6581 Telephone encounter Note* Telephone Encounter - Kilo Beasley DO - 11/28/2024 3:00 PM EDT Need for post op ATB [facility] CenterYqdyspbain79-39-9258 Miscellaneous Notes* Telephone Encounter - Kilo Beasley DO - 11/28/2024 3:00 PM EDT Need for post op ATB documented in this encounterKansas City VA Medical CenterQvnfpjjfdu11-87-4977 History of Present illness Narrative* Kilo Beasley DO - 10/06/2024 2:45 PM EDT Allergies as of 10/06/2024 - Reviewed 09/03/2024 Allergen Reaction Noted Penicillin g Unknown 11/28/2022 Penicillins Hives 11/11/2013 Statins Unknown 08/20/2023 Past Medical History: Diagnosis Date Abdominal pain, right upper quadrant 03/09/2014 Anxiety Frank esophagus Biliary dyskinesia 08/24/2024 -HIDA=0% EF August 2013-Abnormally low. -SBFT 11/2013-normal motility but a stricture proximal to theGEJ and non passage of a pill. Started on Pepcid. -EGD-01/2014-Mild Schatzki ring. Dilated. [place] GradeA reflux esophagitis. Biopsied. Normal stomach. Normal examined duodenum.Recommendation. Path: Squamous mucosa with mild reactive epithelial change.Columnar mucosa with chronic and focal acut Body mass index (BMI) 29.0-29.9, adult 04/01/2024 CAD (coronary artery disease) ([facility]) Chest pressure 03/23/2023 Current every day smoker 03/23/2023 CVA (cerebral vascular accident) ([facility]) 10/2013 Decreased libido Diabetes mellitus type II, non insulin dependent ([facility]) 08/20/2023 Early satiety 08/24/2024 Edema 03/23/2023 Fatigue Gastroesophageal reflux 08/24/2024 GERD (gastroesophageal reflux disease) H. pylori infection 03/19/2014 H/O bone density study 09/08/2021 moderate risk/Osteoporsis H/O section H/O total hysterectomy Hormone disorder Hypertension ([facility]) Left breast lump Major depressive disorder, single episode, mild (HCC) ([facility]) 08/20/2023 Menopausal state PA (myocardial infarction) ([facility]) 07/2013 Myocardial infarction ([facility]) 07/12/2013 PTCA Nicotine dependence Pericarditis 03/23/2023 PSVT (paroxysmal supraventricular tachycardia) ([facility]) 03/23/2023 Rectal bleeding Screening mammogram for breast cancer Status post angioplasty 03/23/2023 TIA (transient ischemic attack) 10/2013; 06/2022 Vaginal dryness, menopausal Current Outpatient Medications: ASPIRIN 81 MG chewable tablet, Aspir-81, Disp: , Rfl: cholecalciferol (Vitamin D-3) 50 MCG (1999) tablet, 1 (one) time each day at the same time., Disp: , Rfl: clopidogrel (Plavix) 75 MG tablet, TAKE 1 TABLET DAILY, Disp: 90 tablet, Rfl: 3 DULoxetine (Cymbalta) [address] capsule, Take 60 mg by mouth, Disp: , Rfl: Elastic Bandages & Supports (Wrist Splint/Cock-Up/Left 2XSm) [facility] [place], G56.00, Disp: , Rfl: famotidine (Pepcid) 20 MG tablet, 1 (one) time each day at the same time., Disp: , Rfl: metoprolol tartrate (Lopressor) 25 MG tablet, take 0.5 by Oral route 2 times every day Oral, Disp: , Rfl: Multiple Vitamin (multivitamin) capsule, Orally, Disp: , Rfl: Repatha 140 MG/ML injection, Inject 140 mg under the skin, Disp: , Rfl: Respiratory Therapy Supplies (CareTouch CPAP Mask Wipes) [facility] [place], Auto CPAP Auto CPAP minimum 5cmH2O maximum [id number] dx: G47.30 Q sleep and nap CPAP mask and supplies DX: ALMA, Disp: , Rfl: spironolactone (Aldactone) 2 mg/mL solution, Spironolactone, Disp: , Rfl: Past Surgical History: Procedure Laterality Date BREAST BIOPSY 2011 SECTION, LOW TRANSVERSE 1989 SECTION, LOW TRANSVERSE 2001 CORONARY ANGIOPLASTY WITH STENT PLACEMENT 2013 EGD 2014 HYSTERECTOMY 2003 [place] LAP,CHOLECYSTECTOMY 2014 Social History Socioeconomic History Marital status: Spouse name: Not on file Number of children: Not on file Years of education: Not on file Highest education level: Not on file Occupational History Not on file Tobacco Use Smoking status: Former Types: Cigarettes Smokeless tobacco: Not on file Substance and Sexual Activity Alcohol use: Yes Alcohol/week: 2.0 - 3.0 standard drinks of alcohol Types: 2 - 3 Standard drinks or equivalent per week Comment: Caffeine: 1-2 cups/day coffee Drug use: Never Sexual activity: Not on file Other Topics Concern Not on file Social History Narrative Not on file Social Drivers of Health Financial Resource Strain: Not on file Food Insecurity: Not on file Transportation Needs: Not on file Physical Activity: Not on file Stress: Not on file Social Connections: Not on file Intimate Partner Violence: Not on file Housing Stability: Not on file Subjective Patient ID: HPI Patient presents today following drug-induced sleep endoscopy. At the time of the procedure, at least 90 percent of her airway obstruction was noted to be secondary to posterior tongue movement. Verylittle lateral wall movement was noted. That being the case, she is a candidate for the inspire implant. Review of Systems ROS The specialty specific review of systems is noncontributory except for that recorded in the intake questionnaire and /or described in the history of present illness. Objective ENT Physical Exam Physical Exam Constitutional: Appearance: Normal appearance. HENT: Head: Atraumatic. Ears: External ear shows no abnormality Bilateral ear canals are clear Tympanic membranes intact, no evidence of middle ear fluid or other pathology. Nose: External nose appears to be normal Nares patent. Septal deviation to the right No evidence of polyp, mass or pus bilaterally. Oral Cavity: No evidence of trismus Lips appear normal Dental Tongue of normal size and configuration, floor of mouth mucosa clear. Buccal mucosa shows no evidence of ulceration, mass or other abnormality Hard palate soft palate mucosa intact with no evidence of mass, ulceration or other abnormality Uvula of normal size and configuration Oropharynx: Tonsils small Posterior pharyngeal wall normal Neck: No evidence of palpable abnormality Thyroid without evidence of thyromegaly or mass. No cervical lymphadenopathy present. Cardiovascular: Rate and Rhythm: Normal rate and regular rhythm. . Skin: General: Skin is warm and dry. Neurological: General: No focal deficit present. Mental Status: alert and oriented to person, place, and time. Assessment/Plan Shefali was seen today for sleep apnea. Diagnoses and all orders for this visit: Obstructive sleep apnea (Primary) Comments: Patient would like to proceed with the inspire implant. Intolerance of continuous positive airway pressure (CPAP) ventilation Comments: See above The risks and benefits of implantation of a hypoglossal nerve stimulator(Inspire or similar device)were discussed with the patient. These include but are not limited to bleeding, infection, poor cosmetic outcome, scaring, need for further surgery, neurovascular injury, difficulty speaking or eating, damage to the marginal mandibular nerve, pneumothorax, need for a chest tube, need to explant the device, etc. The patient has consented to proceed. We will petition the insurance company and call her once it is approved documented in this encounterKansas City VA Medical [id number] History of Present illness Narrative* Kilo Beasley DO - 09/03/2024 3:00 PM EDT Allergies as of 09/03/2024 - Reviewed 08/28/2024 Allergen Reaction Noted Penicillin g Unknown 11/28/2022 Penicillins Hives 11/11/2013 Statins Unknown 08/20/2023 Past Medical History: Diagnosis Date Abdominal pain, right upper quadrant 03/09/2014 Anxiety Frank esophagus Biliary dyskinesia 08/24/2024 -HIDA=0% EF August 2013-Abnormally low. -SBFT 11/2013-normal motility but a stricture proximal to theGEJ and non passage of a pill. Started on Pepcid. -EGD-01/2014-Mild Schatzki ring. Dilated. LA GradeA reflux esophagitis. Biopsied. Normal stomach. Normal examined duodenum.Recommendation. Path: Squamous mucosa with mild reactive epithelial change.Columnar mucosa with chronic and focal acut Body mass index (BMI) 29.0-29.9, adult 04/01/2024 CAD (coronary artery disease) ([facility]) Chest pressure 03/23/2023 Current every day smoker 03/23/2023 CVA (cerebral vascular accident) ([facility]) 10/2013 Decreased libido Diabetes mellitus type II, non insulin dependent ([facility]) 08/20/2023 Early satiety 08/24/2024 Edema 03/23/2023 Fatigue Gastroesophageal reflux 08/24/2024 GERD (gastroesophageal reflux disease) H. pylori infection 03/19/2014 H/O bone density study 09/08/2021 moderate risk/Osteoporsis H/O section H/O total hysterectomy Hormone disorder Hypertension ([facility]/HCC) Left breast lump Major depressive disorder, single episode, mild (HCC) ([facility]/HCC) 08/20/2023 Menopausal state PA (myocardial infarction) ([facility]) 07/2013 Myocardial infarction ([facility]) 07/12/2013 PTCA Nicotine dependence Pericarditis 03/23/2023 PSVT (paroxysmal supraventricular tachycardia) ([facility]) 03/23/2023 Rectal bleeding Screening mammogram for breast cancer Status post angioplasty 03/23/2023 TIA (transient ischemic attack) 10/2013; 06/2022 Vaginal dryness, menopausal Current Outpatient Medications: ASPIRIN 81 MG chewable tablet, Aspir-81, Disp: , Rfl: cholecalciferol (Vitamin D-3) 50 MCG (1999 [place]) tablet, 1 (one) time each day at the same time., Disp: , Rfl: clopidogrel (Plavix) 75 MG tablet, TAKE 1 TABLET DAILY, Disp: 90 tablet, Rfl: 3 DULoxetine (Cymbalta) [address] capsule, Take 60 mg by mouth, Disp: , Rfl: Elastic Bandages & Supports (Wrist Splint/Cock-Up/Left 2XSm) [facility] [place], G56.00, Disp: , Rfl: famotidine (Pepcid) 20 MG tablet, 1 (one) time each day at the same time., Disp: , Rfl: metoprolol tartrate (Lopressor) 25 MG tablet, take 0.5 by Oral route 2 times every day Oral, Disp: , Rfl: Multiple Vitamin (multivitamin) capsule, Orally, Disp: , Rfl: Repatha 140 MG/ML injection, Inject 140 mg under the skin, Disp: , Rfl: Respiratory Therapy Supplies (CareTouch CPAP Mask Wipes) [facility] [place], Auto CPAP Auto CPAP minimum 5cmH2O maximum [id number] dx: G47.30 Q sleep and nap CPAP mask and supplies DX: [place], Disp: , Rfl: spironolactone (Aldactone) 2 mg/mL solution, Spironolactone, Disp: , Rfl: Past Surgical History: Procedure Laterality Date BREAST BIOPSY 2011 SECTION, LOW TRANSVERSE 1989 SECTION, LOW TRANSVERSE 2000 CORONARY ANGIOPLASTY WITH STENT PLACEMENT 2013 EGD 2013 HYSTERECTOMY 2003 [place] LAP,CHOLECYSTECTOMY 2014 Social History Socioeconomic History Marital status: Spouse name: Not on file Number of children: Not on file Years of education: Not on file Highest education level: Not on file Occupational History Not on file Tobacco Use Smoking status: Former Types: Cigarettes Smokeless tobacco: Not on file Substance and Sexual Activity Alcohol use: Yes Alcohol/week: 2.0 - 3.0 standard drinks of alcohol Types: 2 - 3 Standard drinks or equivalent per week Comment: Caffeine: 1-2 cups/day coffee Drug use: Never Sexual activity: Not on file Other Topics Concern Not on file Social History Narrative Not on file Social Drivers of Health Financial Resource Strain: Not on file Food Insecurity: Not on file Transportation Needs: Not on file Physical Activity: Not on file Stress: Not on file Social Connections: Not on file Intimate Partner Violence: Not on file Housing Stability: Not on file Subjective Patient ID: HPI 54-year-old female referred from the sleep laboratory for consideration of inspire. Patient was diagnosed with sleep apnea couple of years ago, RDI of 7, no significant oxygen she was placed on CPAP which she is completely intolerant of. She really can not use it. BMI is about 28. Significant otherhealth issues include familial hypercholesterolemia with resultant vascular disease. He has also had a history of a stroke. Review of Systems ROS The specialty specific review of systems is noncontributory except for that recorded in the intake questionnaire and /or described in the history of present illness. Objective ENT Physical Exam Physical Exam Constitutional: Appearance: Normal appearance. HENT: Head: Atraumatic. Ears: External ear shows no abnormality Bilateral ear canals are clear Tympanic membranes intact, no evidence of middle ear fluid or other pathology. Nose: External nose appears to be normal Nares patent. Septal deviation to the mildly to the right No evidence of polyp, mass or pus bilaterally. Oral Cavity: No evidence of trismus Lips appear normal Dental edentulous Tongue of normal size and configuration, floor of mouth mucosa clear. Buccal mucosa shows no evidence of ulceration, mass or other abnormality Hard palate soft palate mucosa intact with no evidence of mass, ulceration or other abnormality Uvula of normal size and configuration Oropharynx: Tonsils 1+ Posterior pharyngeal wall normal Neck: No evidence of palpable abnormality Thyroid without evidence of thyromegaly or mass. No cervical lymphadenopathy present. Cardiovascular: Rate and Rhythm: Normal rate and regular rhythm. . Skin: General: Skin is warm and dry. Neurological: General: No focal deficit present. Mental Status: alert and oriented to person, place, and time. FIBEROPTIC NASOPHARYNGOLARYNGOSCOPY A diagnostic flexible fiberoptic laryngoscopy was performed. The flexible fiberoptic laryngoscope was placed into the nose and advanced to the level of the tip of the epiglottis. Examination of the larynx including both surfaces of the epiglottis false and true vocal folds, arytenoids and surrounding mucosal surfaces show no evidence of lesion, ulceration or mass. Normal bilateral true vocal foldmotion is present. Bilateral piriform sinuses and base of tongue appear without lesion Pride's maneuver performed at the level of the tongue base/hypopharynx shows at least 75 percent obstruction secondary to posterior tongue movement. Less than 30 percent lateral wall collapse. 90+ percent obstruction at the level of the velum. Assessment/Plan Shefali was seen today for sleep apnea. Diagnoses and all orders for this visit: Intolerance of continuous positive airway pressure (CPAP) ventilation (Primary) Comments: Next step is to perform drug-induced sleep endoscopy. Risks and benefits were discussed with her, she would like to proceed. ALMA (obstructive sleep apnea) Comments: Patient appears to be reasonable anatomical candidate for the inspire. She would like to proceed. Orders: - Ambulatory referral to ENT We will get that approved by the insurance company, call her once it is and get her scheduled. documented in this encounterKansas City VA Medical [id number] History of Present illness Narrative* Steven Ignacio, JUSTYNT - 08/06/2024 9:00 AM EST Images from the original note were not included. Reason for Appointment: EMG Patient: Shefali Tillman : 1970 EMG Computer: [employer] Referring Physician: Destiny Anders CNP EMG: RANJAN facility worker: Steven Ignacio RT(R) Office Location: [place] Reason for EMG: c/o numbness/tingling in fingers on right hand, stiffness & pain in bilateral arms R>L. No hx of DM. Taking ASA & Plavix. Comments: Procedure was explained to the patient who expressed understanding. Patient appeared to have tolerated the test well despite some discomfort due to the nature of the test. documented in this encounterKansas City VA Medical [id number] Miscellaneous Notes* Telephone Encounter - Destiny Anders NP - 07/31/2024 12:53 PM EST Please call pt. And let her know that we can move forward with the Inspire. I will put in the referral. You have the paperwork. Thank you. documented in this encounterKansas City VA Medical [id number] Telephone encounter Note* Telephone Encounter - Destiny Anders NP - 07/31/2024 12:53 PM EST Please call pt. And let her know that we can move forward with the Inspire. I will put in the referral. You have the paperwork. Thank you. [facility] [id number] Evaluation note* Diagnosis Onset Date Resolution Status Admit Date Bronchitis acuteJanuary 2024 6:22pmEpicondylitisacuteFebruary 2024 1:31pmRash acuteFebruary 2024 1:31pm [facility] Work Phone: 1(245) 721-596611-08-2024 [place] [address] EGD/Colonoscopy Procedure Signed Patient: Shefali Tillman MR#: [id number] : 1970 Acct:[id number] Age/Sex: 54 / F Adm Date: 4 Loc: Room: Type: [facility] Attending Dr: Ethan Burt MD Copies to: MD Karmen Hodges, B2B OUTSIDE SALES REPRESENTATIVE, MEETING MANAGER~ EGD & Colonoscopy Date/Provider 04/18/2024 Ethan Burt MD Colonoscopy Findings: Procedure: Colonoscopy with endoscopic mucosal resection with tattoo injection Indication: 54-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 Sedation: propofol per anesthesia dept O2 oximetry, hemodynamic monitoring was performed pre, during, and post procedure. Patient was identified, H&P completed, patient was given full explanation of the procedure as well as associatedrisks and written consent wasobtained prior to procedure. Patient expressed complete understanding of the procedure as well as alternatives to the procedure and to anesthesia and agreed to proceed with the procedure as indicated. Patient was immediately reassessed prior to IV sedation. Under IV sedation, patient was placed in the left lateral decubitus position. Digital rectal exam was performed and normal. Colonoscope was inserted and passed proximally to the cecum, which was identified by the ileocecal valve, appendiceal orifice and cecal floor. Colonoscope was slowly withdrawnwith the findings as below. [place] bowel prep score was good. Findings: Cecum: Normal. Ascending colon: A 2.5 cm polyp raised using blue eye submucosal injection then removed piecemeal using hot snare then 2 clips were placed at the polypectomy site to prevent post polypectomy bleedingthen the area on the opposite wall of the polypectomy site was tattooed using black eye submucosal injection Hepatic flexure: Normal. Transverse colon: Normal. Splenic flexure: Normal. Descending colon: Normal. Sigmoid colon: Diverticulosis. A 1 cm polyp removed using hot snare. Multiple hyperplastic appearing polyps noted in the sigmoid and rectum, 3 of these polypswere removed using cold forceps Rectum: 2 polyps (6-8mm) removed using cold snare. Retroflexed views: Rectum did show internal hemorrhoids. Biopsy taken: No Complications: None EBL: None Recommendations: -Repeat colonoscopy in 6 months -Follow up pathology Following a period of recovery, patient was seen and given full explanation of the procedure. Patient tolerated the procedure well and will be discharged in satisfactory, stable condition. Ethan Burt M.D. 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 Sedation: propofol per anesthesia dept O2 oximetry, hemodynamic monitoring was performed pre, during, and post procedure. Patient was identified, H&P completed, patient was given full explanation of the procedure as well as associatedrisks and written consent wasobtained prior to procedure. Patient expressed complete understanding of the procedure as well as alternatives to the procedure and to anesthesia and agreed to proceed with the procedure as indicated. Patient was immediately reassessed prior to IV sedation. Following IV sedation, patient was placed in the left lateral decubitus position. Bite block was inserted. Endoscope was passed through the mouth, into the esophagus. Endoscope was advanced into the stomach through the pyloricchannel and into the 2nd portion of duodenum by direct visualization. Endoscopewas withdrawn into the stomach and retroflexion was performed. The endoscope was straightened,the stomach was decompressed. Endoscope was withdrawn into the esophagus then completely removed with the findings as below. Findings: DUODENUM: Erythematous mucosa noted in the bulb otherwise descending portion appeared normal. STOMACH: pyloric channel, antrum, body, fundus and cardia, including retroflexedviews appear normal. Gastric biopsies were done using biopsy forceps to assess for H. pylori. ESOPHAGUS: A 1 cm island of salmon-colored mucosa noted at 37 cm from incisors, biopsied using biopsy forceps to assess colitis. Diaphragmatic hiatus was 38 cmfrom incisors and GE junction (upper margin of gastric folds) was at 38 cm from incisors. Squamocolumnar junction was at 38 cm from incisors. Biopsy taken: Yes Complications: None EBL: Minimal Recommendations: -Continue pantoprazole 40 mg daily. -Follow up pathology Following a period of recovery, patient was seen and given full explanation of the procedure. Patient tolerated the procedure well and will be discharged in satisfactory, stable condition. Ethan Burt M.D. Documented By: Ethan Burt MD 04/18/24 1135 Signed By: 04/18/24 1226 [facility]11-08-2024 [place] [address] Gastroenterology H&P Signed Patient: Shefali Tillman MR#: [id number] : 1970 Acct:[id number] Age/Sex: 54 / F Adm Date: 4 Loc: Room: Type: [facility] Attending Dr: Ethan Burt MD Copies to: MD Karmen Hodges APRN, BEATA~ Date of Service: 04/18/2024 HISTORY & PHYSICAL: Patient's history with special attention to the cardiovascular, pulmonary systems and the current problem was reviewed with the patient immediately prior to the procedure. Present medications and doses reviewed in the EMR. Allergies and pertinent laboratory tests were also re viewedat this time in the EMR. The physical examination, as below, was then performed. Indication, assessment and HPI: 54-year-old female with history of Frank's andfamily history of colon cancer (brother)here for EGD to assess Frank's and colonoscopy for colon cancer screening Family history of GI malignancy? yes PHYSICAL EXAMINATION General appearance: NAD Skin: No jaundice Head: NC/AT Eyes: Anicteric Neck: Supple Lungs: Normal respiratory effort, no use of accessory muscles Abdomen: nondistended Neuro: Ox3. REVIEW OF SYSTEMS Constitutional: Denies malaise, fevers Cardiovascular: Denies chest pain, palpitations Respiratory: Denies shortness of breath, wheezing Gastrointestinal: As per HPI Genitourinary: Denies dysuria, polyuria Musculoskeletal: Denies joint swelling, joint stiffness Neurological: Denies confusion, numbness, tingling Endocrine: Denies fatigue Written informed consent obtained from the patient. Risks (including but not limited to perforation, infection, bloating, bleeding, need for emergent surgeryand loss of life), benefits and alternatives explained and questions answered. The patient verbalized understanding. Based on history patient is an appropriate candidate for the procedure. Ethan Burt M.D. Documented By: Ethan Burt MD 04/18/24 1132 Signed By: 04/18/24 1135 [facility]10-22-2024 History of Present illness Narrative * Elfego Mclean, - 04/01/2024 11:20 AM EDT Subjective Shefali Tillman is a 54 y.o. female Chief Complaint Follow-up 54-year-old female returns for follow-up she is doing well she denies any recurrent TIA events, denies any angina, admits to positional left-sided chest discomfort when sleeping on her left side thatresolved spontaneously with repositioning. She has a history of ASHD, coronary interventions, TIAs last of which was 1 year ago, ongoing tobacco use and hyperlipidemia. Most recent lipid panel, triglycerides are 327, LDL 73, HDL is 43 currently on Repatha injections She still smoking we continue to professor of counseling her for 5 minutes today on smoking cessation. Stress testing and echocardiography from last year are all reviewed with her, revealing normal treadmill stress test with no ischemic abnormalities or symptoms, and echocardiography with normal left ventricular function and no PFO or ASD. Recommendations: Continue current therapies including DAPT, smoking cessation counseling, aggressive lipid-lowering, counseling on dietary discretion and exercise, will follow-up in the next 8 monthsto 12 months Review of Systems Cardiovascular: Positive for chest pain. Respiratory: Positive for shortness of breath. All other systems reviewed and are negative. Vitals: 04/01/24 1212 BP: 118/78 BP Location: Right arm Patient Position: Sitting Pulse: 62 Weight: 77.1 kg (170 lb) Height: 1.626 m (5' 4 ) Objective Physical Exam Constitutional: Appearance: Normal appearance. HENT: Nose: Nose normal. Neck: Vascular: No carotid bruit. Cardiovascular: Rate and Rhythm: Normal rate. Pulses: Normal pulses. Heart sounds: Normal heart sounds. Pulmonary: Effort: Pulmonary effort is normal. Abdominal: General: Bowel sounds are normal. Palpations: Abdomen is soft. Musculoskeletal: General: Normal range of motion. Cervical back: Normal range of motion. Right lower leg: No edema. Left lower leg: No edema. Skin: General: Skin is warm and dry. Neurological: General: No focal deficit present. Mental Status: She is alert. Psychiatric: Mood and Affect: Mood normal. Behavior: Behavior normal. Thought Content: Thought content normal. Judgment: Judgment normal. Allergies Penicillins and Qhwsgjn-udn-nrv reductase inhibitors Current Medications Current Outpatient Medications: aspirin 81 mg EC tablet, Take 1 tablet (81 mg) by mouth once daily., Disp: , Rfl: clopidogrel (Plavix) 75 mg tablet, Take 1 tablet (75 mg) by mouth once daily., Disp: , Rfl: DULoxetine (Cymbalta) [address] capsule, Take 1 capsule (30 mg) by mouth once daily. Do not crush orchew., Disp: , Rfl: evolocumab (Repatha SureClick) 140 mg/mL injection, Inject 1 mL (140 mg) under the skin every 14 (fourteen) days., Disp: 6 mL, Rfl: 3 metoprolol tartrate (Lopressor) 25 mg tablet, Take 1 tablet (25 mg) by mouth 2 times a day., Disp: 180 tablet, Rfl: 3 pantoprazole (ProtoNix) 20 mg EC tablet, Take 1 tablet (20 mg) by mouth once daily in the morning. Take before meals. Do not crush, chew, or split., Disp: , Rfl: spironolactone (Aldactone) 100 mg tablet, Take 1 tablet (100 mg) by mouth once daily., Disp: 90 tablet, Rfl: 3 Assessment/Plan 1. Atherosclerosis of sokaogon coronary artery of s[place]ogon heart without angina pectoris 2. Status post angioplasty 3. TIA (transient ischemic attack) 4. Body mass index (BMI) 29.0-29.9, adult 5. Current every day smoker 6. Hyperlipidemia, unspecified hyperlipidemia type Scribe Attestation By signing my name below, Awa Castaneda LPN, Scribe attest that this documentation has been prepared under the direction and in the presence of Ashely Mclean DO. Provider Attestation - Scribe documentation All medical record entries made by the Scribe were at my direction and personally dictated by me. Ihave reviewed the chart and agree that the record accurately reflects my personal performance of the history, physical exam, discussion and plan. documented in this [facility] Work Phone: 1(352) 432-476010-22-2024 Instructions* Patient Instructions* Kathy Churchill LPN - 04/01/2024 11:20 AM EDT Please bring all medicines, vitamins, and herbal supplements with you when you come to the office. Prescriptions will not be filled unless you are compliant with your follow up appointments or have a follow up appointment scheduled as per instruction of your physician. Refills should be requested at the time of your visit. documented in this [facility] Work Phone: [phone]) 257-433308-27-2024 History of Present illness Narrative* Destiny Anders, ALF - 02/05/2024 10:40 AM EDT Images from the original note were not included. Chief Complaint Patient presents with Numbness Sleep Apnea Transient Ischemic Attack Patient is here today for follow-up of her ALMA, paresthesias and brain fog. I am following the planof care established by Dr. Vásquez who is present in the office today and supervising patient care. Subjective Patient got her labs done at rule. Patient states the numbness and tingling is abut the same. Pt PCP is treating her for fatigue, headaches, and muscle spasms in the back of her neck, PCP did blood work for the symptoms. Pt does now has tingling is now in her Left top foot, as well as her rightfoot and both hands. Patient does wear her PAP machine, did well in october and November, recently lost herstep daughter which had caused her to get off track with the machine but admits that she is trying to wear the PAP machine regularly. Last week patient wore the PAP machine 3 times in the week. Patient states she is definitely still having Brain fog, states it is the same since last time she was here, depends on the day. Past Medical History: Diagnosis Date Anxiety Frank esophagus CAD (coronary artery disease) ([facility]) CVA (cerebral vascular accident) ([facility]) 10/2013 Decreased libido Fatigue GERD (gastroesophageal reflux disease) H/O bone density study 09/08/2021 moderate risk/Osteoporsis H/O section H/O total hysterectomy Hormone disorder Hypertension (CMS/HCC) Left breast lump Menopausal state PA (myocardial infarction) (CMS/[facility]) 07/2013 Nicotine dependence Rectal bleeding Screening mammogram for breast cancer TIA (transient ischemic attack) 10/2013; 06/2022 Vaginal dryness, menopausal Past Surgical History: Procedure Laterality Date BREAST BIOPSY 2011 SECTION, LOW TRANSVERSE 1989 SECTION, LOW TRANSVERSE 2000 CORONARY ANGIOPLASTY WITH STENT PLACEMENT 2013 EGD 2013 HYSTERECTOMY 2003 [place] LAP,CHOLECYSTECTOMY 2013 Family History Problem Relation Name Age of Onset Hypertension Mother Obesity Mother Obesity Father Hypertension Maternal Grandmother Stroke Maternal Grandmother Heart disease Maternal Grandmother Alzheimer's disease Maternal Grandfather Mental illness Maternal Grandfather Cancer Paternal Grandfather Alzheimer's disease Other Heart disease Other Cancer Other Stroke Other Diabetes Other Hyperlipidemia Other Hypertension Other Social History Tobacco Use Smoking status: Former Types: Cigarettes Smokeless tobacco: Not on file Substance Use Topics Alcohol use: Yes Alcohol/week: 2.0 - 3.0 standard drinks of alcohol Types: 2 - 3 Standard drinks or equivalent per week Comment: Caffeine: 1-2 cups/day coffee Allergies: Penicillin g, Penicillins, and Statins General: No fever or chills HEENT: No nasal congestion or runny nose Pulmonary: No shortness of breath or cough Cardiovascular: No chest pain or palpitations GI: No nausea or vomiting : No dysuria or hematuria Musculoskeletal: No new aches or pains or muscle weakness Infectious: no recurrent fevers or infections Dermatologic: No rashes or skin lesions Neurologic: No new headaches or dizziness other than in HPI Vitals: 02/05/24 1042 BP: 134/81 Pulse: 70 Body mass index is 28.67 kg/m . weight: 167 lb Neurologic exam: Mental status: Awake, alert to person, place and time. Recent and remote memory are intact. Attention and concentration are normal. Fund of knowledge is appropriate for level of education. HEENT: NC/AT Cranial nerves: CN II: Visual acuity is normal. Visual barrera full to confrontation. CN III, IV, : pupils equal round and reactive to light. Extraocular movements intact. No ptosis present. CN V: Facial sensation is normal. CN VII: Full and symmetric facial movement. CN VIII: Hearing is normal to finger rub bilaterally: CN IX and X: Palate elevates symmetrically. Normal gag reflex. CN XI: Shoulder shrug is normal bilaterally. CN XII: Tongue is midline without atrophy or fasciculation. Speech: Clear and fluent no aphasia or dysarthria Pronator drift: Negative bilateral upper extremity Coordination: Intact, no signs of dysmetria Good finger to nose and rapid alternating movements Sensory: Sensation is intact to light, and vibratory touch throughout four extremities. Pinprick intact in all four extremities. Motor: LUE 5/5 RUE 5/5 LLE 5/5 RLE 5/5 Tone: Physiologic, no tremor, bradykinesia or rigidity DTR: Biceps, BR 2/4 Patellar 2/4 No spasticity Gait: Normal to casual gait Romberg's Negative Assessment/Plan Diagnoses and all orders for this visit: ALMA (obstructive sleep apnea) Complicated migraine (CMS/HCC) Paresthesia of right arm Paresthesia of foot, bilateral Carpal tunnel syndrome, left Transient ischemic attack 54 year old female that presented to the [facility] ER 07/02/2022 with fairly sudden onset left sided numbness, weakness, and facial droop. This did all resolve within a few hours. The day before she did experience nausea, lightheadedness, tunnel vision and felt as if she was going to pass out. She had asimilar episode in 2013. Reported BP at home was 195/120. Work up was negative for stroke. She denies any further s/s of stroke. This could be a migraine with an atypical aura/complex migraine vs TIA. She has had no further events. She was on aspirin 162mg with this event. Due to her young age and and significant vascular risk factors she was changed to aspirin 81mg and Plavix added. She is continuing with this. She did have a nose bleed initially, no further concerning nose bleeds. She is bruising easier and this is stable. She is on alirocumab for her lipidemia History of 2 MIs with stenting, HTN, familial hyperlipidemia, current smoker . She snores, and wakes up gasping. She does move around in bed. She does not wake feeling rested, she gives up sleep for life. Averaging 5-7 hours with sleep maintenance insomnia, no napping. PSG 12/2022 revealed an AHI 30, with evidence of PLMD, she had a titration study. She was waking up in the night gasping and this has improved with the switch to autopap. She is getting more used to the mask. She is trying to wear the mask more as she knows how important it is for her. She was not compliant on a 30 or 90 day download unfortunately. She does show really good effort in the end of October to the middle of November. Then, unfortunately she had a young stepdaughter that did overdose and . Due to th is she has not put the mask on and states she got off track . She is not complaint on download ending 2024 as she did put on the mask 36/90 days, with >4hours 36% of the days, nightly average usage 5 hours, 43 minutes, residual AHI 1.4. She has no issues falling asleep with the mask on. The patient was counselled on the risk of stroke, PA, and suddendeath with ALMA, along with the need for compliance with CPAP/BiPAP treatment. She has tried multiple treatments to quit smoking: chantix (nightmares, suicidal thoughts), hyponosis, spa modalities, patches, accupuncture, wellbutrin, cymbalta. She is still struggling with quitting. . Intermittent numbness/tingling in her finger tips and burning sensation to back of left hand continues. EMG BUE 10/2022 did reveal a minimal CTS on the left and we did order cock up wrist splint. She never went to get the splint. She can have numbness/tingling in her bilateral feet. Labwork for neuropathy revealed a low B12 and she will supplement this. She declines EMG BLE. This could be a diabetic neuropathy that is progressing. She states last A1C normal. . She continues having some brain fog and headaches. Likely due to her untreated severe ALMA and we will monitor for improvement once she is complaint. . PCP is working her up for her fatigue, headaches, and muscle spasms in her back and neck and we will leave that to them. She had labwork, steroids, muscle relaxer and antibiotic as she reports her WBCs were high. . Review and summary of old records: 01/2024 B12 265, folate 35.[address] head no acute intracranial findings MRI brain no acute intracranial pathology, chronic microvascualr ischemic changes, CTA head and neck no occlusion, critical stenosis, aneurysm, or dissection. Echo negative bubble study, no mention of thrombus, mass, or vegetation, EF 55-60%. A1C 5.8, chol 151, LDL 77, HDL 40, trigs 170, B12 195, folate 21, TSH 1.84. Recent labwork from PCP CBC slight variations, BMP and LFTs unremarkable, chol 185, trigs 354, LDL 71, HDL 44, TSH 1.801 . . . Plan Reviewed labwork Start B vitamin Get mask on every night continue aspirin 81mg, Plavix, and statin for secondary stroke prevention control risk factors with PCP Continue with workup with PCP for fatigue, headaches, back and neck spasms Continue with cardiology complaince download reviewed Compliance download at next visit cock up wrist splint left Monitor brain fog and headaches Monitor N/T Offered EMG BLE and will hold for now I counseled the patient on stroke signs and symptoms and advised the patient to go immediately to the emergency room should these symptoms develop. The patient states understanding. The patient was counseled on proper sleep hygiene and adequate hours of sleep. This was discussed with the patient, all questions were answered and they agreed with the treatmentplan. The patient is to call with any worsening of the condition or new symptoms. Return to clinic: 3-4 months documented in this [facility] [id number] Evaluation note* Diagnosis Onset Date Resolution Status Admit Date Fatigue acuteAugust 2023 10:57amHeadacheacuteAugust 2023 10:57amNeck pain acuteAugust 2023 10:57amOnychomycosisacuteAugust 2023 10:57amTick biteacuteAugust 2023 10:57am [facility] Work Phone: [phone]) 839-523211-27-2023 Evaluation note* Encounter Date Diagnosis Assessment Notes Treatment Notes Treatment Clinical Notes Apr, Reactive depression (ICD-10 - F3 2.9) Apr,astroesophageal reflux disease without esophagitis (ICD-10 - K21.9) [employer] Other 08-11-2023 Evaluation note* Encounter Date Diagnosis Assessment Notes Treatment Notes Treatment Clinical Notes Jan, Wellness examination (ICD-10 - Z 00.00) Personalized health advice was given to the [...] maintaining positive relationships with family and friends. Jan,History of heart artery stent (ICD-10 - Z95.5)Follows with Cardiology. Takes medications as prescribed. Jan,Reactive depression (ICD-10 - F32.9)Remains stable on current therapeutic dose. Patient is encouraged to stay active and remain involved. Try to keep themselves busy. Take medication as directed and we will continue to monitor. Jan,astroesophageal reflux disease without esophagitis (ICD-10 - K21.9) Reflux symptoms remain unchanged. Discussed the importance of meal content. They should avoid overeating and eating meals late in the evening. Take medication as directed and we will continue to monitor. Jan,History of stroke (ICD-10 - Z86.73)Follows with Neurology. Is taking Pavix. Reviewed Signs [...] and rice). Eat less sodium, limit alcohol intake.Woman less than 1 drink/day. Man less than 2 drinks/day Jan,History of COVID-19 (ICD-10 - Z86.16)12/2022Was diagnosed with COVID over a week ago and symptoms are resolved now. 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 Jan,History of heart artery stent (ICD-10 - Z95.5)Follows with Cardiology. Takes medications as prescribed. Jan,Reactive depression (ICD-10 - F32.9)Remains stable on current therapeutic dose. Patient is encouraged to stay active and remain involved. Try to keep themselves busy. Take medication as directed and we will continue to monitor. Jan,astroesophageal reflux disease without esophagitis (ICD-10 - K21.9) Reflux symptoms remain unchanged. Discussed the importance of meal content. They should avoid overeating and eating meals late in the evening. Take medication as directed and we will continue to monitor. Jan,History of stroke (ICD-10 - Z86.73)Follows with Neurology. Is taking Pavix. Reviewed Signs [...] and rice). Eat less sodium, limit alcohol intake.Woman less than 1 drink/day. Man less than 2 drinks/day Jan,History of COVID-19 (ICD-10 - Z86.16)12/2022Was diagnosed with COVID over a week ago and symptoms are resolved now. Jan,therosclerotic heart disease of soka[place] coronary artery without angina pectoris (ICD-10 - I25.10) Jan,oronary atherosclerosis due to lipid rich plaque (ICD-10 - I25.83) Jan,igarette nicotine dependence without complication (ICD-10 - F17.210)We discussed possible complications of smoking including risk [...] and willingness to quit at each appointment. [employer] Other 07-28-2023 Evaluation note* Encounter Date Diagnosis Assessment Notes Treatment Notes Treatment Clinical Notes Dec, Contact with and (bennett spected) exposure to covid-19 (ICD-10 - Z20.822) Dec,OVID-19 (ICD-10 - U07.1)Discharge Instructions for COVID-19 (Suspected or Confirmed ) [...] over the next week, ER if any significantshortness of breath, signs of respiratory distress. Discussed quarantine guidelines of 5 days as long as overall improving symptoms, fever free, 5 days of a mask after quarantine. Discussed contagious nature. Work note given. Patient verbalized understanding of treatment plan. [employer] Other 03-28-2023 Evaluation note* Encounter Date Diagnosis [...] understanding and is agreeable to treatment plan [employer] Other 01-23-2023 Progress note Author Savanna Orellana [facility] July 03, 2022 3:50pmNote Date/TimeJanuary 2022 11:[address] [place] [address] Hospitalist Progress Note Signed with Addenda Patient: Shefali Tillman MR#: [id number] : 1970 Acct:[id number] Age/Sex: 52 / F Adm Date: 3 Loc: 3T Room: [address] [place] [address] Type: ADM INOo Attending Dr: Savanna Orellana [...] agreement to the plan. Addendum Documented By: Savnana Orellana MD 07/03/22 154 Addendum Signed By: <Electronically signed by Savanna Orellana MD> 07/03/22 154 Date of Service: 07/03/2022 Subjective Subjective Narrative: Patient was seen and examined at bedside. Daughter at bedside. no major events overnight. Patient remained afebrile and hemodynamically stable overnight. No active complaints today. She feels she is back to her baseline. Denies any weakness or numbness. She said her symptoms have resolved. She doesreport smoking history about 1 pack a day for more than 25 years. She got history of 2cardiac stents in 2013 and 2019. She did have similar presentation in 2013 and was told she had stroke versus TIAversus hemiplegic migraine. Exam Physical Exam Vital Signs: [...] did not want to take it and wantsto follow lifestyle modifications approach at this time. [...] All questions answered. In agreement with the aboveplan Discharge planning once cleared by neurology Savanna Caballero MD Internal Medicine Hospitalist Attending Physician Documented By: Savanna Orellana MD 07/03/22 11 33 Signed By: <Electronically signed by Savanna Orellana MD> 07/03/22 1140 [facility] Work Phone: 1(195) 123-968201-23-2023 History and physical note Author Shari Kang [facility] July 02, 2022 10:34pmNote Date/TimeJanuary 2022 9:50pm[place] [address] Hospitalist H&P Signed with Addenda Patient: Shefali Tillman MR#: [id number] : 1970 Acct:[id number] Age/Sex: 52 / F Adm Date: 3 Loc: Room: [address] [place] [address] Type: ADM IN Attending Dr: Shari Kang [...] the ER her NIH stroke scale was 1.Case was discussed with telestroke team in [place] by ER and tPA was not recommended [...] She states around 5:30pm she felt lightheaded, diaphoreticand nauseous and felt like she was going [...] negative unless noted below or in HPI PMFSH Attestation Statement: The following information was validated [...] % (Auto) 30.5 % (.) 07/02/22 19:14 Bent % (Auto) 14.0 % (.) 07/02/22 19:14 Eos % (Auto) 6.4 % (.) 07/02/22 19:14 Baso % (Auto) 0.8 % (.) 07/02/22 19:14 Nucleat RBC Rel Count 0.2 /100 WBC (0-0.5) 07/02/22 19:14 Neut # (Auto) 5.2 x10E3/uL (1.8-7.7) 07/02/22 19:14 Lymph # (Auto) 3.3 x10E3/uL (1.00-4.8) 07/02/22 19:14 Bent # (Auto) 1.5 x10E3/uL (0.0-0.8) H 07/02/22 [...] pH 5.5 (5.0-9.0) 07/02/22 19:02 Ur Specific [place] 1.003 (1.001-1.030) 07/02/22 19:02 Urine Protein Negative [...] left leg still feels heavy. She is sw allowing water comfortably. She has had similar symptoms in the past back in 2013 which was ruled aTIA. -Patient has high risk factors for stroke [...] <Electronically signed by DO SHAHBAZ Kendall> 07/02/222149 [facility] Work Phone: 1(542) 998-499411-04-2022 Evaluation note* Encounter Date Diagnosis Assessment Notes Treatment Notes Treatment Clinical Notes Apr, Contact with and (bennett spected) exposure to covid-19 (ICD-10 - Z20.822) Apr,Viral URI with cough (ICD-10 - J06.9) Advised [...] treatment plan. Patient left in stable condition Apr,ore throat (ICD-10 - J02.9) [employer] Other 03-04-2022 Evaluation note* Encounter Date Diagnosis Assessment Notes Treatment Notes Treatment Clinical Notes Aug, Contact with and (bennett spected) exposure to other viral communicable diseases (ICD-10 - Z20.828) Aug,cute pansinusitis, recurrence not specified (ICD-10 - J01.40) [...] febrile or new/worsening s/s. pt verbalizes understanding andagrees with tx plan. Aug,ther Additional time spent conducting pre-visit phone call, screening for symptoms, instructions on social distancing, application and removal of PPE, and cleaning of examination room, equipment and supplies was preformed. Patient education given for testing methodology and results. Patient care instructions given in writting by [facility] Care At Home document. Due to infection control protocols for COVID-19 virus, direct physical contact with patient was limited to only the absolute essential needed assessments. [employer] Other 08-21-2019 History and physical note Author Shari Kang [facility] July 02, 2022 10:34pmNote Date/TimeJanuary 2022 9:50pm[place] [address] Hospitalist H&P Signed with Addenda Patient: Shefali Tillman MR#: [id number] : 1970 Acct:[id number] Age/Sex: 52 / F Adm Date: 3 Loc: Room: [address] [place] [address] Type: ADM IN Attending Dr: Shari Kang [...] the ER her NIH stroke scale was 1.Case was discussed with telestroke team in [place] by ER and tPA was not recommended [...] <Electronically signed by Shari Kang MD> 07/02/222233 [facility] DATE OF EXAMINATION: 07/02/22 HISTORY OF PRESENT ILLNESS: 52-year-old female presents to the ED hypertensive with left-sided upper and lower extremity weakness along with left-sided facial drooping. She states around 5:30pm she felt lightheaded, diaphoreticand nauseous and felt like she was going [...] negative unless noted below or in HPI [facility] Attestation Statement: The following information was [...] % (Auto) 30.5 % (.) 07/02/22 19:14 Bent % (Auto) 14.0 % (.) 07/02/22 19:14 Eos % (Auto) 6.4 % (.) 07/02/22 19:14 Baso % (Auto) 0.8 % (.) 07/02/22 19:14 Nucleat RBC Rel Count 0.2 /100 WBC (0-0.5) 07/02/22 19:14 Neut # (Auto) 5.2 x10E3/uL (1.8-7.7) 07/02/22 19:14 Lymph # (Auto) 3.3 x10E3/uL (1.00-4.8) 07/02/22 19:14 Bent # (Auto) 1.5 x10E3/uL (0.0-0.8) H 07/02/22 [...] 07/02/22 19:02 Urine Appearance Clear (Clear) 07/02/22 19: Urine pH 5.5 (5.0-9.0) 07/02/22 19:02 Ur Specific [place] 1.003 (1.001-1.030) 07/02/22 19:02 Urine Protein Negative mg/dL (Negative) 07/02/22 19: Urine Glucose (UA) Normal mg/dL (Normal) 07/02/22 19:02 Urine Ketones Negative (Negative) 07/02/22 19: Urine Occult Blood Negative (Negative) 07/02/22 19: Urine Nitrite Negative (Negative) 07/02/22 19: Urine Bilirubin Negative (Negative) 07/02/22 19: Urine Urobilinogen Normal mg/dL (Normal) 07/02/22 19: Ur Leukocyte Esterase 1+ (Negative) H 07/02/22 19: Urine RBC 3-4 /HPF (0-4) 07/02/22 19: Urine WBC 5-9 /HPF (0-4) H 07/02/22 19:02 Ur Squamous Epith Cells 1-2 /HPF (0-2) 07/02/22 19: Urine Bacteria None seen (None Seen) 07/02/22 [...] left leg still feels heavy. She is sw allowing water comfortably. She has had similar symptoms in the past back in 2013 which was ruled aTIA. -Patient has high risk factors for stroke [...] <Electronically signed by DO SHAHBAZ Kendall> 07/02/222149 [facility] Work Phone: Consult note Author Rajesh Hurd [facility] July 03, 2022 3:40pmNote Date/TimeJan2022 3:40pm[place] [address] Neurology Consult Note Signed Patient: Shefali Tillman MR#: [id number] : 1970 Acct:[id number] Age/Sex: 52 / F Adm Date: 3 Loc: Room: [address] [place] [address] Type: ADM INOo Attending Dr: Savanna Orellana MD Copies to: DO Osiel Ellington DO Obaydah M Daromar, MD~ HPI Consult Date: 07/03/22 Hand Hose Cutter: Sam Vargas Review of Systems ENT Ears, [...] Yohannes Ascencio M.D.07/03/2022 8:02 AM Dictation Location: [place] [address] 07/02/22 19:13 IMPRESSION: No acute intracranial findings. Preliminary findings given 07/02/22 at 1930 hours Impression dictated by: Yohannes Ascencio M.D.07/03/2022 8:02 AM Dictation Location: [place] [address] Head CTA 07/02/22 19:13 IMPRESSION: No occlusion, critical stenosis or dissection of the extracranial orintracranial circulation. No intracranial aneurysm. Impression dictated by: Yohannes Ascencio M.D.07/03/2022 8:06 AM Dictation Location: [place] [address] Assessment/Plan (1) Left sided numbness: Assessment/Problem Details: [...] felt her symptoms resolve about 2 hours later.Since then, she denies any numbness or weakness of the left extremity, and overall reports feeling well. She reports mild tingling in her foot. She had similar symptoms [id number] but was not given a clear diagnosis. [...] normal.? Attention normal.? Speech is fluent and nondys arthric.? Pupils are equal and reactive.? Visual barrera [...] aura ( complex migraine). Similar episode in 2014. However, despite her relatively young age she has significant vascular risk factors: history of two myocardial infarctions requiring stenting,active smoker, familial hyperlipidemia, and some hypertension. PLAN: 1. Previously on aspirin 162 mg daily; this has been changed to clopidogrel 75 mg PO and aspirin 81mg PO 2. Continue the alirocumab 3. The [...] <Electronically signed by Rajesh Hurd DO> 07/03/22 1546 [facility] Work Phone: Evaluation note* Diagnosis Onset Date Resolution Status Current smoker acuteLeft sided numbnessacuteHypertensionchronic [facility] Work Phone: Evaluation note* Diagnosis Onset Date Resolution Status Current smoker acuteLeft sided numbnessacuteHyperlipidemiachronicHypertensionDay[facility] Work Phone: Evaluation noteNo [email or web address] Other Evaluation note* Diagnosis Atherosclerosis of sokaogon coronary artery, unspecified whether angina present, unspecified whether sokaogon or transplanted heart documented in this encounter [facility] Work Phone: Evaluation note* Diagnosis Onset Date Resolution Status Fatigue acuteHeadacheacuteNeck painacuteTick biteacute [facility] Work Phone: Evaluation note* Diagnosis Atherosclerosis of sokaogon coronary artery of sokaogon heart without angina pectoris Status post angioplasty Postsurgical percutaneous transluminal coronary angioplasty status TIA (transient ischemic attack) Unspecified transient cerebral ischemia Body mass index (BMI) 29.0-29.9, adult Current every day smoker Hyperlipidemia, unspecified hyperlipidemia type documented in this encounter [facility] Work Phone: Evaluation note* Diagnosis ALMA (obstructive sleep apnea)- Primary Obstructive sleep apnea (adult) (pediatric) Complicated migraine (CMS/HCC) Migraine, unspecified, without mention of intractable migraine without mention of status migrainosus Paresthesia of right arm Disturbance of skin sensation Paresthesia of foot, bilateral Carpal tunnel syndrome, left Carpal tunnel syndrome Transient ischemic attack Unspecified transient cerebral ischemia [facility] Diagnosis ALMA (obstructive sleep apnea)- Primary Obstructive sleep apnea (adult) (pediatric) Complicated migraine (CMS/HCC) Migraine, unspecified, without mention of intractable migraine without mention of status migrainosus Transient ischemic attack Unspecified transient cerebral ischemia Numbness and tingling Disturbance of skin sensation Carpal tunnel syndrome, left Carpal tunnel syndrome documented [facility] this [facility] noteNo assessment information availableOhio[facility] Work Phone: Evaluation note* Diagnosis ALMA (obstructive sleep apnea)- Primary Obstructive sleep apnea (adult) (pediatric) Paresthesia of right arm Disturbance of skin sensation Transient ischemic attack Unspecified transient cerebral ischemia Complicated migraine (CMS/HCC) Migraine, unspecified, without mention of intractable migraine without mention of status migrainosus Numbness and tingling Disturbance of skin sensation Pure hypercholesterolemia (CMS/HCC) Pure hypercholesterolemia [facility]* Diagnosis ALMA (obstructive sleep apnea)- Primary Obstructive sleep apnea (adult) (pediatric) [facility]* Diagnosis Arm pain, left- Primary Pain in soft tissues of limb Numbness and tingling Disturbance of skin sensation [facility]* Diagnosis Intolerance of continuous positive airway pressure (CPAP) ventilation- Primary ALMA (obstructive sleep apnea) Obstructive sleep apnea (adult) (pediatric) documented [facility] encounter [facility]* Diagnosis Obstructive sleep apnea- Primary Obstructive sleep apnea (adult) (pediatric) Intolerance of continuous positive airway pressure (CPAP) ventilation documented in this encounter [facility]* Diagnosis ALMA (obstructive sleep apnea)- Primary Obstructive sleep apnea (adult) (pediatric) documented in this encounter [facility]* Diagnosis Obstructive sleep apnea- Primary Obstructive sleep apnea (adult) (pediatric) documented in [facility] encounter [facility]* Diagnosis ALMA (obstructive sleep apnea)- Primary Obstructive sleep apnea (adult) (pediatric) documented in this encounter [facility]* Diagnosis Onset Date Resolution Status Admit Date ALMA (obstructive sleep apnea) acuteAugust 2024 2:55pm [facility] Work Phone: History and physical note Author Ethan Burt [facility] HospitalNote Date/TimeNovember 2023 11:35am [place] [address] Gastroenterology H&P Signed Patient: Shefali Tillman MR#: [id number] : 1970 Acct:[id number] Age/Sex: 54 / F Adm Date: 4 Loc: Room: Type: [facility] Attending Dr: Ethan Burt MD Copies to: MD Karmen Hodges APRN, MEETING MANAGER~ Date of Service: 04/18/2024 HISTORY & PHYSICAL: Patient's history with special attention to the cardiovascular, pulmonary systems and the current problem was reviewed with the patient immediately prior to the procedure. Present medications and doses reviewed in the EMR. Allergies and pertinent laboratory tests were also re viewedat this time in the EMR. The physical examination, as below, was then performed. Indication, assessment and HPI: 54-year-old female with history of Frank's andfamily history of colon cancer (brother)here for EGD to assess Frank's and colonoscopy for colon cancer screening Family history of GI malignancy? yes PHYSICAL EXAMINATION General appearance: NAD Skin: No jaundice Head: NC/AT Eyes: Anicteric Neck: Supple Lungs: Normal respiratory effort, no use of accessory muscles Abdomen: nondistended Neuro: Ox3. REVIEW OF SYSTEMS Constitutional: Denies malaise, fevers Cardiovascular: Denies chest pain, palpitations Respiratory: Denies shortness of breath, wheezing Gastrointestinal: As per HPI Genitourinary: Denies dysuria, polyuria Musculoskeletal: Denies joint swelling, joint stiffness Neurological: Denies confusion, numbness, tingling Endocrine: Denies fatigue Written informed consent obtained from the patient. Risks (including but not limited to perforation, infection, bloating, bleeding, need for emergent surgeryand loss of life), benefits and alternatives explained and questions answered. The patient verbalized understanding. Based on history patient is an appropriate candidate for the procedure. Ethan Burt M.D. Documented By: Ethan Burt MD 04/18/24 1132 Signed By: <Electronically signed by Ethan Burt MD> 04/18/24 8331 [facility] Work Phone: Hiswqby general Narrative - Reported* Type Description Date Medical History stroke Medical History2 heart attackSMedical HistoryhyperlipidemiaSurgical HistoryC [id number] & 2000Surgical Nfnzrbysevanrwmyvid2576Rjrtcbtr Historypartial haeepgckback0861Rkjeisfi Historygall eipjdif5444Msmlnhoa HvsvdkmIemsqj1800 & 2020Hospitalization HistorySee Above [employer] Other Hisxznv general Narrative - Reported* Type Description Date Medical History stroke Medical History2 heart attackSMedical HistoryhyperlipidemiaSurgical HistoryC [id number] & 2000Surgical Opvfznnkrcgkojewkra5654Olhkvdpp Historypartial onuktnpquaow7153Ljqdxehe Historygall zcfmizd5045Vsnvhtss HistoryStents cardiac 2014 & 2020Hospitalization HistorySee Above [employer] Other History general Narrative - Reported* Type Description Date Medical History stroke Medical History2 heart attackSMedical HistoryhyperlipidemiaSurgical HistoryC txwefhm8863 & 2000Surgical Bfsablekfwsturwgewi5204Tggmzbwo Historypartial pkebovrfttur6884Ibogtiyf Historygall hdhuzgs6067Clapslrp HistoryStents cardiac 2014 & 2020Hospitalization HistorySee AboveHospitalization TyiwxxeZYC45/22/2023 [employer] Other Hisrvtc general Narrative - Reported* Type Description Date Medical History stroke Medical History2 heart attackSMedical HistoryhyperlipidemiaSurgical HistoryC rkkfhbw9032 & 2000Surgical Dzrrkrenzchmrxcgeon1111Aadpolxd Historypartial rgdsatougklf6522Fpnnqdps Historygall rtdnjss6665Czebekxr HistoryStents cardiac 2014 & 2020Hospitalization HistorySee AboveHospitalization QoizvduZPZ77/22/2023 Hospitalization ZaifbitYTY04/2022 [employer] Other History of Present illness Narrative* The [...] medication regimen. She denies medication side effects. [facility] 250 DO Work Phone: History of Present [...] medication regimen. She denies medication side effects. [facility] 600 DO Work Phone: History of Present [...] medication regimen. She denies medication side effects. [facility] Work Phone: Hospital Discharge instructions Additional [...] clinic -Try to cut down on smoking [facility] Work Phone: Progress note Author Savanna Orellana [facility] July 03, 2022 11:40amNote Date/TimeJanuary 2022 11:40[place] [address] Hospitalist Progress Note Signed Patient: Shefali Tillman MR#: [id number] : 1970 Acct:[id number] Age/Sex: 52 / F Adm Date: 3 Loc: Room: [address] [place] [address] Type: ADM INOo Attending Dr: Savanna Orellana MD Copies to: ~ Date of Service: 07/03/2022 Subjective Subjective Narrative: Patient was seen and examined at bedside. Daughter at bedside. no major events overnight. Patient remained afebrile and hemodynamically stable overnight. No active complaints today. She feels she is back to her baseline. Denies any weakness or numbness. She said her symptoms have resolved. She doesreport smoking history about 1 pack a day for more than 25 years. She got history of 2cardiac stents in 2013 and 2019. She did have similar presentation in 2014 and was told she had stroke versus TIAversus hemiplegic migraine. Exam Physical Exam Vital Signs: [...] did not want to take it and wantsto follow lifestyle modifications approach at this time. [...] All questions answered. In agreement with the aboveplan Discharge planning once cleared by neurology Savanna Caballero MD Internal Medicine Hospitalist Attending Physician Documented By: Savanna Orellana MD 07/03/22 11 33 Signed By: <Electronically signed by Savanna Orellana MD> 07/03/22 1140 [facility] Work Phone: Reason for referral (narrative)No reason for referral information availableAdena [facility] Work Phone: Summary Purpose Family History No Family History Records FoundUnknown Family Member Name Dates Details No pertinent [...] Onset Recorded Date/T bruce sister Hypertension Unknown grandparentCoronary artery diseaseUnknownUnknown Family Member Name Dates Details No pertinent [...] Onset Recorded Date/T bruce sister Hypertension Unknown grandparentCoronary artery diseaseUnknownmotherHypertensionUnknown Relationship Condition Age at Onset Recorded Date/T bruce sister Hypertension Unknown grandparentCoronary artery diseaseUnknownmotherHypertensionUnknownbrother Malignant neoplasm of colonUnknown Advance Directives No Advanced Directives Records Found Advance Directive Response Recorded Date/ Time Advance Directives No June 27, 2019 1:33pm Advance Directive Response Recorded Date/ Time Advance Directives No June 27, 2019 2:33pm Advance Directive Response Recorded Date/ Time Advance Directives No December 08 3:14pm Advance Directive Response Recorded Date/ Time Advance Directives No February 04, 2025 11:24am Chief Complaint * Routine f/u doing ok * SHEFALI TILLMAN is being seen for a 6 month follow-up of chest pain, dyslipidemia and hypertension. * Patient is ambulatory with steady gait. * Last evaluated in clinic by Dr. Mclean Jan 2021. * A chronological chart review from last in clinic evaluation was completed. * She is considering laser liposuction - Dr. Mclean recommended GXT prior. * Compared to last [...] * Routine f/u doing ok * SHEFALI TILLMAN is being seen for a 6 month follow-up of chest pain, dyslipidemia and hypertension. * Patient is ambulatory with steady gait. * Last evaluated in clinic by Dr. Mclean Jan 2021. * A chronological chart review from last in clinic evaluation was completed. * She is considering laser liposuction - Dr. Mclean recommended GXT prior. * Compared to last [...] * Routine f/u doing ok * SHEFALI TILLMAN is being seen for a 6 month follow-up of chest pain, dyslipidemia and hypertension. * Patient is ambulatory with steady gait. * Last evaluated in clinic by Dr. Mclean Jan 2021. * A chronological chart review from last in clinic evaluation was completed. * She is considering laser liposuction - Dr. Mclean recommended GXT prior. * Compared to last [...] * Routine f/u doing ok * SHEFALI TILLMAN is being seen for a 6 month follow-up of chest pain, dyslipidemia and hypertension. * Patient is ambulatory with steady gait. * Last evaluated in clinic by Dr. Mclean Jan 2021. * A chronological chart review from last in clinic evaluation was completed. * She is considering laser liposuction - Dr. Mclean recommended GXT prior. * Compared to last [...] Complaint lt side numbness, fa cial drooping DysuriaReason for VisitCurrent smoker Left sided numbness Hyperlipidemia Hypertension Chief Complaint toe fungus, fatigue , neck spasm , headaches Reason for Visit Fatigue Headache Neck pain Tick bite Chief Complaint Admit Date toe fungus, fatigue , neck spasm , heada ches January 28, 2024 10:57am GERD, Screening April 18, 2024 9 :45am GERD, Screening April 18, 2024 1 1:32am Reason for Visit Admit Date Fatigue January 28, 2024 10 :57am Headache January 28, 2024 10 :57am Neck pain January 28, 2024 10 :57am Onychomycosis January 28, 2024 10 :57am Tick bite January 28, 2024 10 :57am Chief Complaint Admit Date GERD, Screening April 18, 2024 9 :45am GERD, Screening April 18, 2024 1 1:32am Cough, congestion, sore throat, headache June 19, 2024 6:22pm Chief Complaint Admit Date GERD, Screening April 18, 2024 9 :45am GERD, Screening April 18, 2024 1 1:32am Cough, congestion, sore throat, headache June 19, 2024 6:22pm elbow pain July 16, 2024 1 :31pm Reason for Visit Admit Date Bronchitis June 19, 2024 6: 22pm Epicondylitis July 16, 2024 1 :31pm Rash July 16, 2024 1 :31pm Chief Complaint Admit Date Cough, congestion, sore throat, headache June 19, 2024 6:22pm elbow pain July 16, 2024 1 :31pm R20.0 R20.2 August 18, 2024 4:0 1pm Chief Complaint Admit Date hx of colon polyps October 17, 2024 8:00am hx of colon polyps October 24, 2024 7:54a m hx of colon polyps October 24, 2024 9:56a m Amb Documentation October 27, 2024 8:14a m Sleep Apnea November 21, 2024 11:3 5am Sleep Apnea November 28, 2024 6:21 am diarrhea, cramping December 03, 2024 12:1 1pm Chief Complaint Admit Date hx of colon polyps October 17, 2024 8:00am hx of colon polyps October 24, 2024 7:54a m hx of colon polyps October 24, 2024 9:56a m Amb Documentation October 27, 2024 8:14a m Sleep Apnea November 21, 2024 11:3 5am Sleep Apnea November 28, 2024 6:21 am diarrhea, cramping December 03, 2024 12:1 1pm Amb Documentation December 04, 2024 9:41 am [email or web address] December 04, 2024 11:2 4am Chief Complaint Admit Date hx of colon polyps October 17, 2024 8:00am hx of colon polyps October 24, 2024 7:54a m hx of colon polyps October 24, 2024 9:56a m Amb Documentation October 27, 2024 8:14a m Sleep Apnea November 21, 2024 11:3 5am Sleep Apnea November 28, 2024 6:21 am diarrhea, cramping December 03, 2024 12:1 1pm Amb Documentation December 04, 2024 9:41 am [email or web address] December 04, 2024 11:2 4am INSPIRE APPT - OK PER ND January 15 2:55pm Reason for Visit Admit Date ALMA (obstructive sleep apnea) January 2:55pm Chief Complaint Admit Date Sleep Apnea November 21, 2024 11:3 5am Sleep Apnea November 28, 2024 6:21 am diarrhea, cramping December 03, 2024 12:1 1pm Amb Documentation December 04, 2024 9:41 am [email or web address] December 04, 2024 11:2 4am INSPIRE APPT - OK PER ND January 15 2:55pm Follow up February 04, 2025 10 :40am Chief Complaint Admit Date Sleep Apnea November 21, 2024 11:3 5am Sleep Apnea November 28, 2024 6:21 am diarrhea, cramping December 03, 2024 12:1 1pm Amb Documentation December 04, 2024 9:41 am [email or web address].December 04, 2024 11:2 4am INSPIRE APPT - OK PER ND January 15 2:55pm Follow up February 04, 2025 10 :40am inspire follow up February 12, 2025 3:29pm Reason for Visit Admit Date ALMA (obstructive sleep apnea) January 2:55pm Paresthesias February 04, 2025 10 :40am TIA (transient ischemic attack) January 102024 10:40am Chief Complaint Admit Date INSPIRE APPT - OK PER [place] January 15 2:55pm Follow up February 04, 2025 10 :40am inspire follow up February 12, 2025 3:29pm inspire appt - add per ND March 12, 2 025 3:31pm Reason for Visit Admit Date ALMA (obstructive sleep apnea) January 2:55pm Paresthesias February 04, 2025 10 :40am TIA (transient ischemic attack) January 102024 10:40am Hypersomnia February 12, 2025 3:29pm ALMA (obstructive sleep apnea) February 12, 2025 3:29pm Chief Complaint Admit Date INSPIRE APPT - OK PER ND January 15 2:55pm Follow up February 04, 2025 10 :40am inspire follow up February 12, 2025 3:29pm inspire appt - add per ND March 12, 2 025 3:31pm [facility] March 24, 2025 2 :47pm Reason for Visit Admit Date ALMA (obstructive sleep apnea) January 2:55pm Paresthesias February 04, 2025 10 :40am TIA (transient ischemic attack) January 102024 10:40am Hypersomnia February 12, 2025 3:29pm ALMA (obstructive sleep apnea) February 12, 2025 3:29pm Hypersomnia March 12, 2025 3: 31pm ALMA (obstructive sleep apnea) March 3:31pm Anxiety March 24, 2025 2 :47pm Reason for Referral SpecialtyDiagnoses / ProceduresReferred By ContactReferred To Contact Diagnoses Atherosclerosis of sokaogon coronary artery, unspecified whether angina present, unspecified whether sokaogon or transplanted heart Procedures Stress Test Only Elfego Mclean, [address] [facility] [address], [facility] [address] [place] [address] Referral IDStatusReasonStart DateExpiration DateVisits RequestedVisits [id number] Additional Source Comments INFORMATION SOURCE (unrecogn ized section and content) DATE CREATED AUTHOR 07/05/2018 [facility] DATE CREATED AUTHOR AUTHOR'S ORGANIZ ATION 02/04/2022 [employer] DATE CREATED AUTHOR AUTHOR'S ORGANIZ ATION 03/07/2022 [facility] DATE CREATED AUTHOR AUTHOR'S ORGANIZ ATION 07/04/2022 [facility] DATE CREATED AUTHOR AUTHOR'S ORGANIZ ATION 10/13/2022 [facility] DATE CREATED AUTHOR AUTHOR'S ORGANIZ ATION 11/17/2022 [facility] DATE CREATED AUTHOR AUTHOR'S ORGANIZ ATION 12/29/2023 [facility] DATE CREATED AUTHOR AUTHOR'S ORGANIZ ATION 05/07/2024 [facility] DATE CREATED AUTHOR AUTHOR'S ORGANIZ ATION 01/09/2025 [facility] DATE CREATED AUTHOR AUTHOR'S ORGANIZ ATION 03/17/2025 [facility] DATE CREATED AUTHOR AUTHOR'S ORGANIZ ATION 03/31/2025 [facility] REASON FOR VISIT (unrecogniz ed section and content) SpecialtyDiagnoses / ProceduresReferred By ContactReferred To Contact Diagnoses Atherosclerosis of sokaogon coronary artery, unspecified whether angina present, unspecified whether sokaogon or transplanted heart Procedures Stress Test Only Elfego Mclean, DO [address] [facility] [address], [facility] [address] [place] [address] Referral IDStatusReasonStart DateExpiration DateVisits RequestedVisits [id number] yearReason CommentsNumbnessSleep ApneaTransient Ischemic AttackReasonCommentsSleep Apnea Transient Ischemic AttackNumbnessReasonCommentsSleep ApneaNew Patient : Inspire consultSpecialtyDiagnoses / ProceduresReferred By ContactReferred To Contact Otolaryngology Diagnoses ALMA (obstructive sleep apnea) Procedures [place] OFFICE/OUTPATIENT [facility] 60 MINUTES Destiny Anders, ALF [address] [place] [address] Phone: tel: fax: Kilo Beasley, DO [address] [facility] [place] [address] Phone: tel: fax: Referral IDStatusReasonStart DateExpiration DateVisits RequestedVisits [id number] Specialty Services Required /[id number] ApneaS/p InspireReasonCommentsPost-op Post op InspireReasonCommentsPost-op1 month bud [facility] Care Teams (unrecognized sec tion and content) Team Status: Active Member Role Status Dates Osiel Pettit DO Primary Care Provider Active Sachi Mak ProviderActiveNaseem Cervantes Provider, Attending ProviderActive Team Status: Active Member Role Status Camille Pettit DO Primary Care Provider Active Team Status: Inactive Member Role Status Dates Osiel Pettit DO Primary Care Provider Active Sachi Mak ProviderActiveNaseem Cervantes Provider ActiveSavanna Orellana MDAttgunjan ProviderActiveRajesh Hurd , Other ProviderActive Team Status: Inactive Member Role Status Dates Osiel Pettit DO Primary Care Provider Active Florin Gilmore ProviderActiveTeam MemberRelationshipSpecialty Start DateEnd Date Osiel Pettit DO PCP - General07/08/19 Team Status: Active Member Role Status Dates Karmen Tovar APRN INSPECTOR AND TESTER-C Primary Care Provider Active Team Status: Inactive Member Role Status Dates Karmen Tovar APRN INSPECTOR AND TESTER-C Primary Care Provider, Attending Provider Active Start: January 28, 2024 End: January 28, 2024Team MemberRelationshipSpecialtyStart DateEnd Date Karmen Tovar APRN-MEETING MANAGER [address] [place] [address] PCP - [facility] Rqhbodxu38/22/24 Team Status: Active Member Role Status Dates Karmen Tovar APRN INSPECTOR AND TESTER-C Primary Care Provider, Attending Provider Active Start: 2024 Team Status: Inactive Member Role Status Dates Karmen Tovar APRN INSPECTOR AND TESTER-C Primary Care Provider Active Start: April End: April 18, 2024Imad Carmel , JACKIEttending ProviderActiveStart: April 18, 2024 End: April 18, 2024 Team Status: Active Member Role Status Dates Karmen Tovar APRN INSPECTOR AND TESTER-C Primary Care Provider Active Start: April Imad Carmel , MDAttending Provider, Other ProviderActiveStart: April 18, 2024 Team MemberRelationshipSpecialtyStart DateEnd Date Osiel Pettit MD [address] [place] [address] [facility]12/14/22Team MemberRelationshipSpecialtyStart DateEnd Date Osiel Pettit MD [address] [place] [address] PCP - Generalmily Medicine12/14/22Team MemberRelationshipSpecialtyStart End Date Osiel Pettit MD [address] [place] [address] PCP - [facility] Medicine12/14/22Team MemberRelationshipSpecialtyStart DateEnd Date Osiel Pettit MD [address] [place] [address] PCP - [facility]12/14/22Team MemberRelationshipSpecialtyStart DateEnd Date Osiel Pettit MD [address] [place] [address] PCP - [facility]12/14/22 Team Status: Inactive Member Role Status Dates Karmen Tovar APRN INSPECTOR AND TESTER-C Primary Care Provider Active Start: June 19, 2024 End: June 19, 2024Florin Chicas ProviderActiveStart: June 19, 2024 End: June 19, 2024 Team Status: Inactive Member Role Status Dates Karmen Tovar APRN INSPECTOR AND TESTER-C Primary Care Provider, Attending Provider Active Start: July 16, 2024 End: July 16, 2024Team MemberRelationshipSpecialtyStart DateEnd Date Osiel Pettit MD [address] [place] [phone] [facility]12/14/22 Hui Vásquez DO [address] [place] [address] Referring PhysicianNeurology2/Team MemberRelationshipSpecialtyStart DateEnd Osiel Dang MD [address] [place] [address] PCP - GeneralFamily Medicine12/14/22 uHi Vásquez DO [address] [place] [address] Referring PhysicianNeurolog07/31/24Team MemberRelationshipSpecialtyStart [facility] Osiel Pettit MD [address] [place] [address] PCP - Generalmily Medicine12/14/22 Hui Vásquez DO [address] [place] [id number] Referring PhysicianNeurology2Team MemberRelationshipSpecialtyStart DateEnd [facility] Osiel Pettit MD [address] [place] [phone] PCP - Generalmi Medicine12/14/22 Hui Vásquez DO [address] [place] [address] Referring PhysicianNeurology2Team MemberRelationshipSpecialtyStart DateEnd Osiel Dang MD [address] [place] [address] [facility]12/14/22 Hui Vásquez DO [address] [place] [address] Referring PhysicianNeurolog07/31/24 Team Status: Inactive Member Role Status Dates Karmen Tovar APRN INSPECTOR AND TESTER-C Primary Care Provider Active Start: August 18, 2024 End: August 18Florin Macias ProviderActiveStart: August 18, 2024 End: August 18, 2024Team MemberRelationshipSpecialtyStart DateEnd Date Osiel Pettit MD [address] [place] [address] PCP - GeneralFamily Medicine12/14/22 Hui Vásquez DO [address] [place] [address] Referring PhysicianNeurolog07/31/24 Karmen Tovar NP [address] [place] [address] Family Medicine08/21/24 Destiny Anders NP [address] [place] [phone] Nurse PractitionerNeurology08/21/24 Kilo Morfin MD [address] [place] [phone] Referring PhysicianInternal Medicine08/28/24 Kilo Beasley DO [address] [place] [address] Otolaryngology09/03/24Team MemberRelationshipSpecialtyStart DateEnd Date Osiel Pettit MD [address] [place] [address] PCP - GeneralFamily Medicine12/14/22 Hui Vásquez DO [address] [place] [address] Referring PhysicianNeurology2 Karmen Tovar NP [address] [place] [address] [place] [address] Family Medicine08/21/24 Destiny Anders NP [address] [phone] Nurse PractitionerNeurology08/21/24 Kilo Morfin MD [address] [place] [phone] Referring PhysicianInternal Medicine08/28/24 Kilo Beasley DO [address] [place] [address] Otolaryngology09/03/24Team MemberRelationshipSpecialtyStart DateEnd Date TrentonOsiel MD [address] [place] [address] PCP - GeneralFamily Medicine12/14/22 Hui Vásquez DO [address] [place] [phone] Referring PhysicianNeurology2 Karmen Tovar NP [address] [place], [place] [address], [place] [address] [facility]08/21/24 Destiny Anders NP [address] [place] [phone] Nurse PractitionerNeurology08/21/24 Kilo Morfin MD [address] [place] [phone] Referring PhysicianInternal Medicine08/28/24 Kilo Beasley, DO [address] [place] [address] Otolaryngology09/03/24Team MemberRelationshipSpecialtyStart DateEnd Osiel Pettit MD [address] [place] [address] PCP - GeneralFamily Medicine12/14/22 Hui Vásquez DO [address] [place], [place] [phone] Referring PhysicianNeurolog07/31/24 Karmen Tovar NP [address] [place] [address] [address] [place], [place] [phone] Family Medicine08/21/24 Destiny Anders NP [address] [place] [phone] Nurse PractitionerNeurology08/21/24 Kilo Morfin MD [address] [place] [phone] Referring PhysicianInternal Medicine08/28/24 Kilo Beasley DO [address] [place] [address] Otolaryngology09/03/24Team MemberRelationshipSpecialtyStart DateEnd Date Osiel Pettit MD [address] [place] [facility] [address] PCP - GeneralFamily Medicine12/14/22 Hui Vásquez DO [address] [place] [address] Referring PhysicianNeurolog07/31/24 Karmen Tovar NP [address] [place] [address] [place] [address] Family Medicine08/21/24 [place] [address] [place] [address] [place] [address] Nurse PractitionerNeurology08/21/24 [place] [address] [place] [address] [place] [address] Referring PhysicianInternal Medicine08/28/24 Kilo Beasley DO [address] [place] [address] Otolaryngology09/03/24Team MemberRelationshipSpecialtyStart DateEnd Date Osiel Pettit MD [address] [place] [facility] [place] [address] [facility]12/14/22 Hui Vásquez DO [address] [place] [address] Referring PhysicianNeurolog07/31/24 [place] [address] [place] [address] [place] [address] Family Medicine08/21/24 [place] [address] [place] [address] [place] [address] Nurse PractitionerNeurology08/21/24 Kilo Morfin DO [address] [place] [address] [place] [address] Referring PhysicianInternal Medicine08/28/24 Kilo Beasley DO [address] [facility] [place] [address] Otolaryngology09/03/24 Team Status: Active Member Role Status Dates Karmen Tovar APRN INSPECTOR AND TESTER-C Primary Care Provider Active Start: October 17, 2024 Ethan Burt MDAttending ProviderActiveStart: October 17, 2024 Team Status: Inactive Member Role Status Dates Karmen Tovar APRN INSPECTOR AND TESTER-C Primary Care Provider Active Start: October 24, 2024 End: October 24, 2024Imabennett Burt MDAttending ProviderActiveStart: October 24, 2024 End: October 24, 2024 Team Status: Active Member Role Status Dates Karmen Tovar APRN INSPECTOR AND TESTER-C Primary Care Provider Active Start: October 24, 2024 Ethan Burt MDAttending ProviderActiveStart: October 24, 2024 Galdino Hodges ProviderActiveStart: October 24, 2024 Team Status: Active Member Role Status Dates Karmen Tovar APRN INSPECTOR AND TESTER-C Primary Care Provider Active Start: October 27, 2024 Shefali Obrien CMAAttgunjan ProviderActiveStart: October 27, 2024 Team Status: Inactive Member Role Status Dates Karmen Tovar APRN INSPECTOR AND TESTER-C Primary Care Provider Active Start: November 21, 2024 End: November 21russpaloma Valdezmichaelkyler , DOAttending ProviderActiveStart: November 21, 2024 End: November 21, 2024 Team Status: Inactive Member Role Status Dates Karmen Tovar APRN INSPECTOR AND TESTER-C Primary Care Provider Active Start: November 28, 2024 End: November 28analisa José Miguelcristina , DOAttending ProviderActiveStart: November 28, 2024 End: November 28, 2024 Team Status: Inactive Member Role Status Dates Karmen Tovar APRN INSPECTOR AND TESTER-C Primary Care Provider Active Start: December 03, 2024 End: December 03, 2024Harlan Meredith ProviderActiveStart: December 03, 2024 End: December 03, 2024 Team Status: Active Member Role Status Dates Karmen Tovar APRN INSPECTOR AND TESTER-C Primary Care Provider Active Start: December 04, 2024 Yolanda Zimmerman CMAAttending ProviderActiveStart: December 04, 2024 Team Status: Inactive Member Role Status Dates Karmen Tovar APRN INSPECTOR AND TESTER-C Primary Care Provider Active Start: December 04, 2024 End: December 04, 2024Imad Carmel MDAttgunjan ProviderActiveStart: December 04, 2024 End: December 04, 2024Team MemberRelationshipSpecialtyStart DateEnd Date Osiel Pettit MD [address] [place] [address] PCP - GeneralFamily Medicine12/14/22 Hui Vásquez DO [address] [place] [phone] Referring PhysicianNeurolog07/31/24 Karmen Tovar NP [address] [place] [address] Family Medicine08/21/24 Destiny Anders NP [address] [place] [address] Nurse PractitionerNeurology08/21/24 Kilo Morfin DO [address] [place] [address] [place] [address] Referring PhysicianInternal Medicine08/28/24 Kilo Beasley, [address] [place] [address] Otolaryngology09/03/24Team MemberRelationshipSpecialtyStart DateEnd Date Karmen Tovar NP [facility] Referrals ONLY [facility] Medicine01/07/25 Karmen Tovar NP [address] [place], [place] [address] [address] [facility] ProviderFab[facility] Medicine08/21/24 Kilo Beasley, [address] [place] [address] Otolaryngology09/03/24Team MemberRelationshipSpecialtyStart DateEnd Date Karmen Tovar NP [facility] Referrals ONLY [facility]01/07/25 Karmen Tovar NP [address] [place] [address] [place] [address] Primary Care ProviderFaboston dispens[facility] Medicine08/21/24 Kilo Beasley, DO [address] [place] [address] Otolaryngology09/03/24 Team Status: Inactive Member Role Status Dates Karmen Tovar APRN INSPECTOR AND TESTER-C Primary Care Provider Active Start: January 15, 2025 End: January 15, 2025Nicole Fahad , DOAttending ProviderActiveStart: January 15, 2025 End: January 15, 2025 Team Status: Inactive Member Role Status Dates Karmen Tovar APRN INSPECTOR AND TESTER-C Primary Care Provider Active Start: February 04, 2025 End: February 04jose Anders APRNAttending ProviderActiveStart: February 04, 2025 End: February 04, 2025 Team Status: Inactive Member Role Status Dates Karmen Tovar APRN INSPECTOR AND TESTER-C Primary Care Provider Active Start: February 122024 End: February 12, 2025Nicole Fahad , DOAttending ProviderActiveStart: February 12, 2025 End: February 12, 2025 Team Status: Inactive Member Role Status Dates Karmen Tovar APRN INSPECTOR AND TESTER-C Primary Care Provider Active Start: March 12, 2025 End: March 12, 2025Nicole Fahad , DOAttending ProviderActiveStart: March 12, 2025 End: March 12, 2025 Team Status: Inactive Member Role Status Dates Karmen Tovar APRN INSPECTOR AND TESTER-C Primary Care Provider Active Start: March End: March 24, 2025Karmen Tovar APRN INSPECTOR AND TESTER-CAttending ProviderActive Start: March 24, 2025 End: March 24, 2025 Goals (unrecognized section and content) Goals may [...] ON THE PRIMARY CLINICAL RECORDS. [facility] [employer] [facility]. provides no warranty or guarantee of the accuracy or completeness of information in this document.
--- NOTE | 2025-04-09 15:48 | CT_ITS ---
The [address] [address] Patient Name: NOEL MENDOZA MRN: [id number] date: 1970 Sex: F Assigned Patient Location: MAMMO Current Patient Location: Accession/Order Number: [id number] Exam Date: 04/09/2025 15:40 Report Date: 04/10/2025 10:44 At the request of: CYNDEE MOSELEY Procedure: CT lung screening low-dose LOW-DOSE SCREENING CHEST CT WITHOUT CONTRAST COMPARISON: None CLINICAL DATA: Current smoker with 35 pack year history. Spiral axial unenhanced low-dose images were obtained through the chest. Images were reviewed using both narrow and wide window settings. This CT exam was performed using one or more following dose reduction techniques: Automated exposure control, adjustment of the mA and/or kV according to patient size, or use of iterative reconstruction technique. The heart is within normal limits for size. There is no pericardial effusion. Coronary artery disease is seen. There is no aortic aneurysm. There is minor plaque at the aortic arch, descending aorta and proximal great vessels. There are few tiny nonpathologic lymph nodes. A battery pack is present at the right upper chest wall. There is dextroscoliotic curvature and tiny endplate spurs. There is obstructive lung disease with airspace lucencies and subpleural blebs. No consolidation, pleural effusion or pneumothorax is seen. Tiny right upper lobe nodular densities are visualized measuring up to 4 mm. Limited imaging through the upper abdomen shows no contributory findings. CT/CT lung screening low-dose IMPRESSION: TINY PULMONARY NODULES. OBSTRUCTIVE LUNG DISEASE. Lung RADS category 2 - benign Twelve-month low-dose CT follow-up suggested. Impression dictated by: Brandy Cotton M.D. 04/10/2025 10:44 AM Dictation Location: [place] [address] Electronically authenticated by: [id number] Y Date: 04/10/2025 10:44
== END 2025-04-09 15:22 | disposition home or self-care (01) ==
LOC: MAMMO 15:22
PROVIDERS: PCP Nurse Practitioner Family; Visit Provider Nurse Practitioner Family
DX: Z12.31 Encounter for screening mammogram for malignant neoplasm of breast (principal); Z12.2 Encounter for screening for malignant neoplasm of respiratory organs; F17.200 Nicotine dependence, unspecified, uncomplicated; J44.9 Chronic obstructive pulmonary disease, unspecified; R91.8 Other nonspecific abnormal finding of lung field; Z80.42 Family history of malignant neoplasm of prostate; Z80.0 Family history of malignant neoplasm of digestive organs
CPT/HCPCS: 71271; 77063; 77067

== ENCOUNTER 2025-05-19 20:06 | Outpatient (OUT) | payer BC, SELFPAY ==
--- OUTSIDE RECORDS SUMMARY | 2025-05-19 20:10 | XMS_ITS | CCD ---
Author Organization [facility] Care Team Providers Care Lecturer In Marketing Name Role Phone UNKNOWN, PROVIDER Attending OSIEL Bell Primary Care Unavailable Osiel Pettit Unavailable Unavailable Unavailable Jael Fournier Unavailable Ms. Jerome Pelaez Attending Forest Pelaez, Ms. Cabral Referring Unavailable Joseph, Dr. Osiel Lester Primary Care Kimberley Bowen Unavailable Eduardo HUITRON Referring Unavailable Chris TRAYLOR Attending Unavailable DO Osiel Pettit Primary Care Provider MANAV Christian Emergency Provider MD Shari Kang Admit Provider MD Shari Kang Attending Provider MD Savanna rOellana Attending Provider DO Rajesh Hurd Other Provider [...] DR BAILEY LISTED Consulting Unavaila ble REQUEST, NONE LISTED Attending Unavaila ble HOUSE, DR ROACH Primary Care Unavailable HOUSE, DR ROACH Consulting Unavailable HOUSE, DR ROACH Attending Unavailable HOUSE, DR ROACH Referring Unavailable HOUSE, DR ROACH Admitting Unavailable HOUSE, DR ROACH Primary Care Unavailable ELANA ., DR MACHUCA Admitting Unavailable ELANA ., DR MACHUCA Consulting Unavailable ELANA ., DR MACHUCA Attending Unavailable WEST, DR DIANA Gonzalez Attending Unavailable HOUSE, DR ROACH Primary Care Unavailable WEST, DR DIANA Gonzalez Admitting Unavailable WEST, DR DIANA Gonzalez Consulting Unavailable Mag Perry Unavailable Karmen Tovar Unavailable [phone] Osiel Pettit DO Primary Care Provider ELFEGO MCLEAN Referring Unavailable OSIEL PETTIT Primary Care Unavailable Guy DIAGRAM CLERK-CASTING SUPERVISOR, Karmen Dejesus Primary Care Pro vider Karmen Tovar APRN Primary Care Provider Carmel WOODS, Ethan Attending Provider [phone] Osiel Pettit MD Primary Care Provider Hui Vásquez DO Unavailable Karmen Tovar APRN Primary Care Provider Destiny Anders APRN Attending Provider Karmen Tovar NP Unavailable Destiny Anders NP Unavailable Kilo Morfin MD Unavailable Kilo Beasley DO Unavailable Kilo Morfin MD Unavailable Destiny Anders NP Unavailable Kilo Morfin DO Unavailable [phone] Karmen Tovar APRN Primary Care Provider Carmel WOODS, Ethan Attending Provider Carmel WOODS, Ethan Other Provider Shefali Obrien CMA Attending Provider Unavailabl Kilo Miller DO Attending Provider [phone] Jenny WHITAKER, Rey Emergency Provider Yolanda Zimmerman CMA Attending Provider Unavailanjelica Tovar QUANTITATIVE RESEARCHER, Karmen Anjelica Unavailable Claudetterbachegael QUANTITATIVE RESEARCHER, Karmen Anjelica Primary Care Provider DESTINY ANDERS Attending Unavailable HUI VÁSQUEZ Attending Unavailable HANHMODESTINY Morris Attending Unavailable MURCEK, KILO Hogan Attending Unavailable GILLMORDESTINY Referring Unavailable MURCEK, KILO Hogan Attending Unavailable MURCEK, KILO Hogan Attending Unavailable GILLMORDESTINY Referring Unavailable GILLMORDESTINY Attending Unavailable GILLMODESTINY Morris Attending Unavailable MURCEK, KILO W Attending Unavailable MURCEK, KILO Hogan Attending Unavailable MURCEK, KILO Hogan Attending Unavailable Rey Alvarado APRN Emergency Provider [phone] Hui Vásquez DO Attending Provider [phone] Claudetterbtyler DIAGRAM CLERK, [facility] Primary Care Provider Carmel WOODS, Imiris Attending Provider [phone] Destiny Anders APRN Attending Provider Viktoriyaachegael DIAGRAM CLERK, [facility] Primary Care Provider Kilo Beasley Admitting Unavailable Kilo Beasley Attending Unavailable [facility] Hospital[facility], [facility] Primary Care Unavailable Asaad, Imad Admitting Unavailable Asaad, Imad Attending Unavailable [facility] Hospital[facility], [facility] Primary Care Unavailable Asaad, Imad Admitting Unavailable Asaad, Imad Attending Unavailable Claudetterbacher, [facility] Primary Care Unavailable Rohrbacher, [facility] Primary Care Unavailable Rey Alvarado Admitting Unavailable Rey Alvarado Attending Unavailable Destiny Anders Admitting Unavailable Destiny Anders Attending Unavailable Rohrbacher, [facility] Primary Care Unavailable Asaad, Imad Admitting Unavailable Asaad, Imad Attending Unavailable Claudetterbacher, [facility] Primary Care Unavailable Ramos Kilo Admitting Unavailable MurcekKilo Attending Unavailable Rohrbacher, [facility] Primary Care Unavailable Rohrbacher DIAGRAM CLERK, Karmen Attending Provider ELFEGO MCLEAN Attending Unavailable KARMEN TOVAR A Primary Care Unavailab Hui Shin DO Unavailable Destiny Anders NP Unavailable [phone] Kilo Morfin DO Unavailable Allergies Allergy ClassificationReported Allergen(s)Allergy TypeDate of OnsetReaction(s) Facility (20 sources)Hmg-Coa Reductase Inhibitors (Statins); Translations: [Statins] Allergy [facility] drug (finding)[facility] Phone: (20 sources)Penicillins; Translations: [Penicillins]Allergy to drug (finding) 59[facility]56[facility]709[facility] (20 sources)Penicillin VDrug Oxvgzcl24-13-8686hyeqsHooqzgmjrClermont County Hospital (1 source)Penicillin; Translations: [penicillin][facility]rug [facility]ergyThe [facility] (1 source)PenicillinsDrug allergy (disorder)17-67-5455LjqParma [facility] (4 sources)HMG-CoA reductase inhibitor; Translations: [BWPRTBW-BHV-KOA REDUCTASE INHIBITORS]Drug Ootelnt53-96-0378BrmyyrlLisnuuhoxwFisher-[facility] Center Work Phone: (2 sources)PenicillinsDrug Wzfpauy30-41-1699SvjjwIovuhebwajWayne HealthCare Main [facility] (20 sources)HMG-CoA reductase inhibitorDrug Darweyy98-70-6515DeutobuLRHJ Healthcare (20 sources)Penicillin GDrug Cdytujo99-64-3392WhynncwJUCP Healthcare (20 sources)PenicillinsDrug Nksuwlv92-02-8498IdbnuVMDK Healthcare (8 sources)Qjvcrsj-UMY-KpL Reductase Inhibitor; Translations: [Nhxteyw-PPC-IxT Reductase Inhibitor]Allergy to xdfymfhij46-63-9769ReynwakCommunity Regional Medical CenterComment on above:muscle cramps (1 source)PenicillinDrug Btxlgfe97-83-7275VflkiauqhSelect Medical [facility] [place] Rep[facility] Medications Current Medications MedicationDrug Class(es)DatesSig (Normalized)Sig (Original)acetaminophen 250 mg / aspirin 250 mg / caffeine 65 mg oral tablet (7 sources)Platelet Aggregation Inhibitor, Nonsteroidal Anti-inflammatory Drug, Central Nervous System Stimulant, MethylxanthineStart: 73-74-1715emqt 1 tablet by mouth every six hours as needed for vmecNlywkfz-Mzwpjccbaltpl-Yiqramzv (Excedrin Extra Strength) 250-250-65 mg tablet Active 1 TAB PO Every6 hours as needed for pain November 21, 2024 12:00am Complies with drug rlgdupsuwc901840 200 actuat albuterol 0.09 mg/actuat metered dose inhaler (10 sources)beta2-Adrenergic AgonistStart: 17-96-6262uaki 1 puff(s) by inhalation every four to six hours as needed for wheezingAlbuterol Sulfate 90 mcg/actuation HFA aerosol inhaler Active 2 PUFF INHALATION EVERY 4-6 HOURS as n eeded for shortness of breath or wheezing 8.5 June 19, 2024 1:00am Complies with drug therapyaspirin 81 mg delayed release oral tablet (20 sources)Platelet Aggregation Inhibitor, Nonsteroidal Anti-inflammatory Drug Start: 54-13-0173ndkz 1 tablet by mouth once dailyAspirin 81 mg tablet,delayed release (DR/EC) Active 81 MG PO Daily February 04, 2025 12:00am Complies with drug therapyStart: 05-15-2023 End: 84-92-1728ghfb 2 tablets by mouth once dailyaspirin 81 mg EC tablet Indications: Atherosclerosis of [place] coronary artery of [place] heart without angina pectoris TAKE 2 TABLETS BY MOUTH EVERY DAY 60 tablet 11 05/15/2023 04/01/2024 Discontinued (Dose adjustment)Start: 54-13-3058xkga 1 tablet by mouth every other dayAspirin 81 MG Oral Tablet Delayed Release TAKE 1 TABLET EVERY OTHER DAY Quantity: 45 Refills: 3 Ordered: 02-Nov-2022 Elfego Mclean DO Start : 02-Nov-2022 Active Fill at patient request onlyStart: 36-02-8944psrz 1 tablet by mouth once dailyAspirin 81 mg Tablet,Delayed Release (Dr/Ec) Active 81 MG PO Daily 0 July 03, 2022 1:00amStart: 07-01-2019 End: 14-51-9471bpbn 2 tablets by mouth once dailyAspirin 81 mg tablet,delayed release (DR/EC) Discontinued 162 MG PO Daily July 01, 2019 1:00amJan2022 4:45pmStart: 07-01-2019 End: 00-16-6217ikmn 162 mg by mouth once dailyAspirin Discontinued 162 MG PO Daily July 01, 2019 1:00am July 03, 2022 4:45pmASPIRIN 81 MG chewable tablet Activebrompheniramine maleate 0.4 mg/ml / dextromethorphan hydrobromide 2 mg/ml / pseudoephedrine hydrochloride 6 mg/ml oral solution (1 source)alpha-Adrenergic Agonist, Uncompetitive K-ldbtdh-Q-aspartate Receptor Antagonist, Sigma-1 AgonistStart: 86-34-6379qebq 10 mL by mouth every six hours Wclfuijot-Ijhauzud-XM 30-2-10 MG/5ML 10 mL Orally every 6 hours for 5 days Apr, ActivebusPIRone hydrochloride 10 mg oral tablet (1 source)Start: 03-71-5494uqdp 1 tablet by mouth twice dailyBuspirone 10 mg tablet Active 10 MG PO Twice daily March 24, 2025 12:00am Complies with drug therapycholecalciferol 0.05 mg oral capsule (20 sources)Vitamin DStart: 34-30-3551yegh 1 capsule by mouth once daily in [...] oral capsule (1 source)Lincosamide AntibacterialStart: 11-28-2024 End: 21-03-4162xdnz 1 capsule by mouth every eight hoursclindamycin (Cleocin) 150 MG capsule Indications: ALMA (obstructive sleep apnea) Take 1 capsule (150mg) by mouth every 8 (eight) hours for 7 days 21 capsule 11/28/2024 12/05/2024 Activeclopidogrel 75 mg oral tablet (20 sources)P2Y12 Platelet InhibitorStart: 08-31-2020 End: 37-88-3237pplapkffvig (Plavix) 75 MG tablet Indications: TIA (transient ischemic attack) TAKE 1 TABLET DAILY 90 tablet 3 01/14/2024 ActiveDULoxetine 60 mg delayed release oral capsule (20 sources)Serotonin and Norepinephrine Reuptake InhibitorStart: 04-14-2024 End: 82-24-9560Csshlcnjpm 60 mg capsule,delayed release(DR/EC) Discontinued 0 .ROUTE .COMPLEX October 13, 2024 7:52am November 21, 2024 12:05pm TAKE 1 CAPSULE DAILYStart: 98-13-3293wkkn 1 capsule by mouth once dailyDULoxetine HCl - 30 MG Oral Capsule Delayed Release Particles TAKE 1 CAPSULE BY MOUTH EVERY DAY Michael tity: 30 Refills: 1 Ordered: 26-Feb-2023 Jerome Younger Start : 26-Feb-2023 ActiveStart: 07-01-2019 End: 62-41-9462wqey 1 capsule by mouth once daily in the morningDuloxetine 60 mg capsule,delayed release(DR/EC) Active 60 MG PO Every morning November 21, 2024 12:00am TAKE 1 CAPSULE DAILY Complies with drug therapyCymbalta ActiveDuloxetine 60 mg capsule,delayed release(DR/EC) (4 sources)Start: 57-15-3700Xwkzedlmof 60 mg capsule,delayed release(DR/EC) Active 0 .ROUTE .COMPLEX April 14, 2024 9:03am TAKE 1 CAPSULE DAILYStart: 03-90-7164Auzcyenbzb 60 mg capsule,delayed release(DR/EC) Active 0 .ROUTE .COMPLEX April 14, 2024 8:03am TAKE 1 CAPSULE DAILYElastic Bandages & Supports (Wrist Splint/Cock-Up/Left 2XSm) misc (20 sources)Elastic Bandages & Supports (Wrist Splint/Cock-Up/Left 2XSm) misc G56.00 Active1 ml evolocumab 140 mg/ml prefilled syringe (20 sources)PCSK9 InhibitorStart: 09-03-2023 End: 12-45-4297Hlmdfjl 140 MG/ML injection Inject 140 mg under the skin 09/03/2023 ActiveStart: 05-10-2023 End: 26-26-3301fcwatc 1 mL by subcutaneous injection onceevolocumab (Repatha SureClick) 140 mg/mL injection Indications: Atherosclerosis of [place] coronary a rtery of [place] heart without angina pectoris , Hyperlipidemia, unspecified hyperlipidemia type Inject 1 mL (140 mg) under the skin every 14 (fourteen) days. 6 mL 3 04/01/2024 04/01/2025 ActiveStart: 01-97-1583Shppxeg 140 MG/ML Subcutaneous Solution Prefilled Syringe 1 injection every 2 weeks Quantity: 6 Refills: 3 Ordered: 26-Jan-2023 Jerome Younger Start : 26-Jan-2023 Active replaces Praulentfamotidine 20 mg oral tablet (20 sources)Histamine-2 Receptor Antagonistfamotidine (Pepcid) 20 MG tablet 1 (one) time each day at the same time Activelinaclotide 0.072 mg oral capsule (9 sources)Guanylate Cyclase-C Agonist End: 97-77-3007gjiuAPWcuwz (Linzess) 72 MCG capsule Linzess 07/31/2024 Discontinued (Therapy completed)24 hr metFORMIN hydrochloride 500 mg extended release oral tablet (9 sources)BiguanideStart: 05-07-2023 End: 12-65-8953jzaRZJNUJ XR (Glucophage-XR) 500 MG 24 hr tablet Indications: Insulin resistance 30 tablet 11 05/07/2023 07/31/2024 Discontinued (Therapy completed)metoprolol tartrate 25 mg oral tablet (20 sources)beta-Adrenergic BlockerStart: 10-15-8638qbvg 0.5 tablet by mouth twice dailyMetoprolol Tartrate 25 MG Oral Tablet take 1/2 tablet by mouth twice a day Quantity: 90 Refills: 0 Ordered: 06-Dec-2021 Jerome Younger Start : 06-Oct-2021 ActiveStart: 09-01-2020 End: 35-74-7873syvj 1 tablet by mouth twice dailyMetoprolol Tartrate 25 mg Tablet Active 25 MG PO Twice daily 60 September 01, 2020 12:00am Complies with drug therapyStart: 07-01-2019 End: 03-55-6422Pwbdxebwlj Tartrate 25 mg tablet Discontinued 12.5 MG PO Twice daily July 01, 2019 1:00am September 01, 2020 12:51pmStart: 07-01-2019 End: 10-70-2533lfsx 12.5 mg by mouth twice dailyMetoprolol Tartrate Discontinued 12.5 MG PO Twice daily July 01, 2019 1:00am September 01, 2020 12:51pm Multiple Vitamin (multivitamin) capsule (20 sources)Multiple Vitamin (multivitamin) capsule ActiveMultiple Vitamin (multivitamin) capsule Orally Activepantoprazole 40 mg delayed release oral tablet (20 sources)Proton Pump InhibitorStart: 92-81-2079azny 1 tablet by mouth once daily in the morningPantoprazole 40 mg tablet,delayed release (DR/EC) Active 40 MG PO Every morning November 21, 2024 12:00am TAKE 1 TABLET DAILY Complies with drug therapyStart: 04-14-2024 End: 68-18-1463Iabplotocrmd 40 mg tablet,delayed release (DR/EC) Discontinued 0 .ROUTE .COMPLEX April 14, 2024 9:03am November 21, 2024 12:05pm TAKE 1 TABLET DAILYStart: 07-01-2019 End: 37-52-4944vbsq 1 tablet by mouth once dailyPantoprazole 40 [...] 40 mg tablet,delayed release (DR/EC) (4 sources)Start: 21-15-4298Cxzcciybmqmu 40 mg tablet,delayed release (DR/EC) Active 0 .ROUTE .COMPLEX April 14, 2024 9:03am TAKE 1 TABLET DAILYStart: 49-13-3464Vzrikpxsizcw 40 mg tablet,delayed release (DR/EC) Active 0 .ROUTE .COMPLEX April 14, 2024 8:03am TAKE 1 TABLET DAILYRespiratory Therapy Supplies (CareTouch CPAP Mask Wipes) [facility] [place] (20 sources)Respiratory Therapy Supplies (CareTouch CPAP Mask Wipes) [facility] [place] Auto CPAP Auto CPAP minimum 5cmH2O maximum 30syG9B dx: G47.30 Q sleep and nap CPAP mask and supplies DX: ALMA Active0.25 mg, 0.5 mg dose 1.5 ml semaglutide 1.34 mg/ml pen injector (18 sources)Start: 07-30-2023 End: 79-92-6769cmejee 0.5 mg by subcutaneous injection every weeksemaglutide (Ozempic, 0.25 or 0.5 MG/DOSE,) 2 MG/1.5ML solution pen-injector Indications: Insulin resistance Inject 0.5 mg under the skin 1 (one) time per week 4.5 mL 1 07/30/2023 07/31/2024 Discontinued (Therapy completed)Start: 03-27-2023 End: 56-33-8976ponoos 0.25 mg by subcutaneous injection every weeksemaglutide (Ozempic, 0.25 or 0.5 MG/DOSE,) 2 MG/1.5ML solution pen-injector Indications: Insulin resistance Inject 0.25 mg under the skin 1 (one) time per week. 1 each 1 03/27/2023 07/31/2024 Discontinued (Therapy completed)Semaglutide,0.25 or 0.5MG/DOS, (Ozempic, 0.25 or 0.5 MG/DOSE,) 2 MG/3ML solution pen-injector (9 sources)Start: 05-07-2023 End: 96-21-3290Nrwfazafqrb,0.25 or 0.5MG/DOS, (Ozempic, 0.25 or 0.5 MG/DOSE,) 2 MG/3ML solution pen-injector Indications: Insulin resistance Inject 3 mL under the skin 1 (one) time per week. 2 mL 05/07/2023 07/31/2024 Discontinued (Therapy completed)Start: 49-38-6066Bhcggasmbre,0.25 or 0.5MG/DOS, (Ozempic, 0.25 or 0.5 MG/DOSE,) 2 MG/3ML solution pen-injector Indications: Insulin resistance Inject 3 mL under the skin 1 (one) time per week. 2 mL 05/07/2023 Activespironolactone 100 mg oral tablet (20 sources)Aldosterone AntagonistStart: 07-01-2019 End: 56-89-0366gzdg 1 tablet by mouth once daily in the eveningSpironolactone 100 mg tablet Active 100 MG PO Every evening July 01, 2019 1:00am Complies withdrug therapyspironolactone (Aldactone) 2 mg/mL solution (20 sources)spironolactone (Aldactone) 2 mg/mL solution Activespironolactone (Aldactone) 2 mg/mL solution Spironolactone Active Completed/Discontinued Medications MedicationDrug Class(es)DatesSig (Normalized)Sig (Original)1 ml alirocumab 150 mg/ml auto-injector (20 sources)PCSK9 InhibitorStart: 85-81-8517qqpdzk 75 mg by subcutaneous injection every other weekPraluent 75 MG/ML Subcutaneous Solution Auto-injector INJECT 75MG EVERY 2 WEEKS UNDER THE SKIN Quantity: 6 Refills: 3 Ordered: 21-Nov-2021 Jerome Younger Start : 21-Nov-2021 ActiveStart: 62-56-8453ksfvys 75 mg by subcutaneous injection every other weekPraluent 75 MG/ML Subcutaneous Solution Auto-injector INJECT 75MG EVERY 2 WEEKS UNDER THE SKIN Quantity: 6 Refills: 3 Ordered: 17-Nov-2021 Jerome Younger Start : 17-Nov-2021 ActiveStart: 10-26-2021 End: 55-65-6455vudibz 150 mg by subcutaneous injection every other week Alirocumab (Praluent Pen) 150 mg/mL pen injector Discontinued 150 MG SUBCUT EVERY 2 WEEKS July 02, 2022 1:00am October 23, 2023 12:83juChs2459-Mvg Tzj-Kenw-Gjk-Asb-C (11 sources)Osmotic Laxative, Vitamin CStart: 03-20-2024 End: 43-66-3427Lqg3311-Sod Zuf-Dnfl-Gyv-Asb-C (Plenvu) 140-9-5.2 gram powder in packet, sequential Discontinued 140 ML PO .COMPLEX 1 March 20, 2024 12:00am April 04, 2024 11:59am First does at 4pm the daybefore the colonoscopy; second dose at 11pm the night before the colonoscopy.Start: 03-20-2024 End: 90-10-5729Prh8538-Sod Yvx-Dhug-Cmb-Asb-C (Plenvu) 140-9-5.2 gram powder in packet, sequential Discontinued 140 ML PO .COMPLEX 1 March 19, 2024 11:00pm April 04, 2024 10:59am First does at 4pm the day before the colonoscopy; second dose at 11pm the night before the colonoscopy.atorvastatin 40 mg oral tablet (20 sources)HMG-CoA Reductase InhibitorStart: 07-01-2019 End: 03-49-0755Ntrvxamaiato 40 mg tablet Discontinued 12.5 MG PO Twice daily July 01, 2019 1:00am August 1:43amStart: 07-01-2019 End: 66-00-6206wjso 12.5 mg by mouth twice dailyAtorvastatin Discontinued 12.5 MG PO Twice daily July 01, 2019 1:00am August 31, 2020 1:43am End: 38-32-6248oiuszmehhqvi (Lipitor) 20 MG tablet 1 (one) time each day at the same time. 07/31/2024 Discontinued(Therapy completed)bempedoic acid 180 mg oral tablet (15 sources)Start: 08-31-2020 End: 37-36-2561bovp 1 tablet by mouth once dailyBempedoic Acid (Nexletol) 180 mg tablet Discontinued 180 MG PO Daily August 31, 2020 12:00am July 02, 2022 8:12pmbenzonatate 100 mg oral capsule (15 sources)Non-narcotic AntitussiveStart: 07-02-2019 End: 80-66-4512xpvx 1 capsule by mouth three times daily as needed for cough Benzonatate (Tessalon Perles) 100 mg capsule Discontinued 100 MG PO Three times daily as needed forcough July 02, 2019 1:00am August 31, 2020 1:41am bismuth subsalicylate 262 mg oral tablet (10 sources)BismuthStart: 04-22-2024 End: 19-64-2360ymsx 1 tablet by mouth four times dailyBismuth Subsalicylate (Briggs Bismuth) 262 mg tablet Discontinued 524 MG PO Four times daily 112 14 No vember 2023 1:00am July 16, 2024 2:37pm24 hr buPROPion hydrochloride 150 mg extended release oral tablet (20 sources)AminoketoneStart: 10-23-2024 End: 37-01-4411skth 1 tablet by mouth once daily in the morningBupropion Hcl 150 mg tablet extended release 24 hr Discontinued 0 .ROUTE .COMPLEX 90 October 231:16am October 24, 2024 8:06am TAKE 1 TABLET BY MOUTH EVERY MORNING FOR 30 DAYSStart: 83-47-7269rhpg 1 tablet by mouth every twenty-four hours in the morningbuPROPion XL (Wellbutrin XL) 150 MG 24 hr tablet Take 150 mg by mouth in the morning. 09/30/2024 ActiveStart: 09-30-2024 End: 65-90-4153bswi 1 tablet by mouth once daily in the morningBupropion Hcl (Wellbutrin Xl) 150 mg tablet extended release 24 hr Discontinued 150 MG PO Every morning 30 September 30, 2024 12:00am October 23, 2024 11:16amdoxycycline hyclate 100 mg oral capsule (5 sources)Tetracycline-class DrugStart: 42-08-9376kpsl 1 capsule by mouth every twelve hoursDoxycycline Hyclate 100 MG 1 capsule Orally Twice a day for 10 day(s) Aug, Not-Takingfenofibrate 54 mg oral tablet (3 sources)Peroxisome Proliferator Receptor alpha AgonistStart: 03-02-2023 End: 50-40-7239mqdp 1 tablet by mouth once dailyFenofibrate 54 MG Oral Tablet TAKE 1 TABLET DAILY. Quantity: 90 Refills: 3 Ordered: 02-Mar-2023 Elfego Mclean DO Start : 02-Mar-2023 Activefluticasone propionate 0.05 mg/actuat metered dose nasal spray (6 sources)CorticosteroidStart: 01-24-8161yaqg 1 spray(s) nasal route once daily Flonase Allergy Relief 50 MCG/ACT 1 spray in each nostril Nasally Once a day for 14 day(s) Dec, Not-Takingfurosemide 20 mg oral tablet (20 sources)Loop DiureticStart: 02-01-2022 End: 87-24-0809itbo 1 tablet by mouth once daily as needed for edemaFurosemide 20 mg Tablet Discontinued 20 MG PO Daily as needed for edema July 02, 2022 1:00am October 23, 2023 12:28pmgabapentin 100 mg oral capsule (3 sources)Anti-epileptic AgentStart: 02-04-2025 End: 07-01-0551qcra 1 capsule by mouth three times dailyGabapentin 100 mg capsule Discontinued 100 MG PO Three times daily February 04, 2025 12:00am March 24, 2025 3:03pmibuprofen 800 mg oral tablet (15 sources)Nonsteroidal Anti-inflammatory DrugStart: 09-01-2020 End: 97-05-0604Ratgxripn 800 mg Tablet Discontinued 800 MG PO every 6 to 8 hours as needed for Pain September 01, 2020 12:00am September 01, 2020 12:51pmLORazepam 0.5 mg oral tablet (20 sources)BenzodiazepineStart: 07-02-2019 End: 51-77-3741zxea 1 tablet by mouth three times daily as needed for anxiety Lorazepam 0.5 mg Tablet Discontinued 0.5 MG PO Three times daily as needed for Anxiety July 02, 2019 1:00am July 02, 2019 5:53pm End: 17-61-8274CGDroelux (Ativan) 0.5 MG tablet every 12 (twelve) hours. 07/31/2024 Discontinued (Therapy completed)methylPREDNISolone 4 mg oral tablet (20 sources)CorticosteroidStart: 06-19-2024 End: 00-77-1434bozm 1 tablet by mouth onceMethylprednisolone (Medrol (Nolan)) 4 mg tablets,dose pack Discontinued 0 PO per package directions June 19, 2024 1:00am July 16, 2024 2:38pm PO PER PKG DIR for 6 daysStart: 01-28-2024 End: 69-38-4964lhdm 1 tablet by mouth onceMethylprednisolone (Medrol (Nolan)) 4 mg tablets,dose pack Discontinued 0 PO per package directions January 28, 2024 12:00am April 04, 2024 11:58am PO PER PKG DIRmetroNIDAZOLE 500 mg oral tablet (10 sources)Nitroimidazole AntimicrobialStart: 04-22-2024 End: 00-69-2945lxrq 1 tablet by mouth three times dailyMetronidazole 500 mg tablet Discontinued 500 MG PO Three times daily 42 April 22, 2024 1:00am June 19, 2024 7:22pmomeprazole 40 mg delayed release oral capsule (19 sources)Proton Pump InhibitorStart: 04-22-2024 End: 99-16-5871hets 1 capsule by mouth twice dailyOmeprazole 40 mg capsule,delayed release(DR/EC) Discontinued 40 MG PO Twice daily 28 April 22, 2024 1:00am June 19, 2024 7:28pmondansetron 4 mg oral tablet (10 sources)Serotonin-3 Receptor AntagonistStart: 05-06-2024 End: 58-11-5238teqk 1 tablet by mouth twice dailyOndansetron Hcl 4 mg tablet Discontinued 4 MG PO Twice daily May 06, 2024 1:00am June 19, 2024 7:28pmprasugrel 10 mg oral tablet (15 sources)P2Y12 Platelet InhibitorStart: 07-02-2019 End: 94-72-1676pwon 1 tablet by mouth once dailyPrasugrel Hcl (Effient) 10 mg Tablet Discontinued 10 MG PO Daily July 02, 2019 1:00am August 31, 2020 1:41ampredniSONE 10 mg oral tablet (20 sources)Start: 07-16-2024 End: 88-61-9214spbx 0.5 tablet by mouth once dailyPrednisone 10 mg tablet Discontinued 10 MG PO daily July 16, 2024 1:00am October 09, 2024 9:28am Take 40 mg for 2 days, 30 mg for 2 days, 20 mg for 2 days, 10 mg for 2 days, 1/2 tablet for 2 daysStart: 08-31-2020 End: 24-99-9221ltwg 1 tablet by mouth once dailyPrednisone 50 mg tablet Discontinued 50 MG PO Daily 5 August 31, 2020 12:00am July 02, 2022 8:12pmterbinafine 250 mg oral tablet (11 sources)Allylamine AntifungalStart: 01-31-2024 End: 11-47-4243chyt 1 tablet by mouth once dailyTerbinafine Hcl 250 mg tablet Discontinued 250 MG PO Daily January 31, 2024 12:00am April 04, 2024 11:58amtetracycline hydrochloride 500 mg oral capsule (10 sources)Tetracycline-class AntimicrobialStart: 04-22-2024 End: 55-72-2164rhap 1 capsule by mouth four times dailyTetracycline 500 mg capsule Discontinued 500 MG PO Four times daily 56 April 22, 2024 1:00am June 19, 2024 7:22pmtiZANidine 2 mg oral tablet (12 sources)Central alpha-2 Adrenergic AgonistStart: 01-28-2024 End: 21-44-7379iwlf 1 tablet by mouth every eight hours as neededTizanidine 2 mg tablet Discontinued 2 MG PO Every 8 hours as needed for muscle spasticity 09 04January 28, 2024 12:00am October 09, 2024 9:29amtriamcinolone acetonide 1 mg/ml topical cream (9 sources)CorticosteroidStart: 07-16-2024 End: 20-75-7293Snfaxbwdieudg Acetonide 0.1 % cream Discontinued 1 APPLIC TOPICAL Twice daily 07 01July 16, 2024 1:00am October 09, 2024 9:29am Problems Active Problems Problem ClassificationProblemDateDocumented DateEpisodic/ChronicAnxiety disorders (2 sources)Anxiety; Translations: [Anxiety disorder, unspecified]03-24-2025 ChronicChronic obstructive pulmonary disease and bronchiectasis (11 sources)Bronchitis; Translations: [Bronchitis, not specified as acute or chronic]06-32-9587RhrievizGgatioea atherosclerosis and other heart disease (20 sources)Old myocardial infarction; Translations: [Atherosclerotic heart disease of [place] coronary artery without angina pectoris]Onset: 09-22-2013 65-45-8623XuvuuvcDvnvydt on above:Problem List clean-up per request of Phys. EHR CmteCoronary atherosclerosis and other heart disease (6 sources)Coronary angioplasty status; Translations: [Post percutaneous transluminal coronary angioplasty]Onset: 794520-22-0019VngximiwRceikgep of white blood cells (15 sources)Leukocytosis; Translations: [Elevated white blood cell count, unspecified]29-98-4727ArjfdarMmiquco on above:Problem List clean-up per request of Phys. EHR CmteDisorders of lipid metabolism (20 sources)Hyperlipidemia; Translations: [Other and unspecified hyperlipidemia] Onset: 201728-48-8169ReoqxypL Codes: Natural/environment (14 sources)Tick bite; Translations: [Bitten or stung by nonvenomous insect and other nonvenomous arthropods, initial encounter]70-18-9496EjbrcoffAuesvonko hypertension (18 sources)Hypertensive disorder; Translations: [Essential (primary) hypertension]76-03-8221ZdnasbwByilf of unknown origin (12 sources)Fever; Translations: [Fever, unspecified]71-00-3267KjsbjfggHhgcm and electrolyte disorders (15 sources)Hyponatremia; Translations: [Hypo-osmolality and hyponatremia] 61-30-3135YtiyjqalEbscplf on above:Problem List clean-up per request of Phys. 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]84-46-5204XnzflftkUsczg circulatory disease (20 sources)Cardiac function test normal; Translations: [Normal cardiac ejection fraction]EpisodicOther circulatory disease (2 sources)Personal history of transient ischemic attack (TIA), and cerebral infarction without residual deficitsEpisodicOther circulatory disease (3 sources)History of cerebrovascular accident; Translations: [Personal history of transient ischemic attack (TIA), and cerebral infarction without residual deficits]34-37-8887EkbahghkGfrwa connective tissue disease (15 sources)Musculoskeletal pain; Translations: [Myalgia, other site]08-31-2020 EpisodicComment on above:Problem List clean-up per request of Phys. EHR Cmte Other connective tissue disease (11 sources)Epicondylitis; Translations: [Lateral epicondylitis]07-16-2024 EpisodicOther connective tissue disease (1 source)Pain in left arm; Translations: [Pain in left arm]19-62-1498Bgbwnxzs Other gastrointestinal disorders (7 sources)Diarrhea due to drug; Translations: [Toxic gastroenteritis and colitis]87-76-8948FdpphqxqHzglp hematologic conditions (13 sources)Raised cardiac enzyme or marker; Translations: [Other specified abnormalities of plasma proteins]21-55-0927TvnnzyxwStdanrq on above:Problem List clean-up per request of Phys. EHR CmteOther lower respiratory disease (1 source)Shortness of breathOnset: 95-62-9484IswmdgprZnfwp nervous system disorders (20 sources)Carpal tunnel syndrome of left wrist; Translations: [Carpal tunnel syndrome, left upper limb]Onset: 377810-41-8341IyvprbvStlxl nervous system disorders (15 sources)Numbness; Translations: [Anesthesia of skin]08-72-2044Ntmudfjp Comment on above:Problem List clean-up per request of Phys. EHR CmteOther nervous system disorders (7 sources)Numbness and tingling sensation of skin; Translations: [Anesthesia of skin]35-85-6800NvpoamspZilbx nervous system disorders (6 sources)Paresthesia; Translations: [Paresthesia of skin]95-44-0223Lbxqdikc Other nutritional; endocrine; and metabolic disorders (10 sources)Body mass index 25-29 - overweight; Translations: [Body Mass Index 28.0-28.9, adult]EpisodicOther screening for suspected conditions (not mental disorders or infectious disease) (18 sources)Encounter for screening for malignant neoplasm of cervix; Translations: [Patient encounter status]Onset: 45-65-4620EivhdzrpBecvfpu on above:Problem List clean-up per request of Phys. EHR CmteOther skin disorders (9 sources)Eruption; Translations: [Rash and other nonspecific skin eruption] 08-68-1748SelkmkhpIgsoo skin disorders (2 sources)Rash and other nonspecific skin eruption; Translations: [Rash and other nonspecific skin eruption]01-46-9086AbbyrtpjEpbjf upper respiratory infections (15 sources)Acute pansinusitis, unspecified; Translations: [Acute upper respiratory infection, unspecified]Onset: 08-12-2021 Resolved: 51-74-1397MjmtcguwFdwysygz codes; unclassified (20 sources)Obstructive sleep apnea syndrome; Translations: [Obstructive sleep apnea (adult) (pediatric)]Onset: 807477-15-9749ShyoymkXdjgjgrx codes; unclassified (15 sources)Periodic limb movement disorder; Translations: [Periodic limb movement disorder]Onset: 663783-53-1599XmnewdnSkteglhk codes; unclassified (13 sources)Periodic leg movements of sleep ; Translations: [Periodic limb movement disorder]Onset: 857592-50-0426OikyafzVassarqa codes; unclassified (5 sources)Hypersomnia; Translations: [Hypersomnia, unspecified]02-12-2025 ChronicResidual codes; unclassified (1 source)Obstructive sleep apnea (adult) (pediatric); Translations: [Obstructive sleep apnea (adult) (pediatric)]Onset: 86-77-8414UnowwapNyohcnjt codes; unclassified (5 sources)Swelling - edema - symptom; Translations: [Edema]EpisodicResidual codes; unclassified (4 sources)Other specified health status; Translations: [Other specified conditions influencing health status]07-03-1049StdmgvgaBczccozldpt; intervertebral disc disorders; other back problems (14 sources)Neck pain; Translations: [Cervicalgia]30-13-0320TgxieiwtDzkewbrao cerebral ischemia (20 sources)Transient cerebral ischemia; Translations: [Unspecified transient cerebral ischemia]Onset: 531280-53-1423XbqcpubYhznvatlwpbz (1 source)Pure hypercholesterolemia, unspecifiedOnset: 61-53-2008Rnaeqsvdvhyb (1 source)Prsnl hx of TIA (TIA), and cereb infrc w/o resid deficitsOnset: 06-28-2018 Past or Other Problems Problem ClassificationProblemDateDocumented DateEpisodic/ChronicAbdominal pain (16 sources)Right upper quadrant pain; Translations: [Right upper quadrant pain] Onset: 03-09-2014 Resolved: 169235-37-7614WpobgzsrJpebo myocardial infarction (20 sources)Myocardial infarction; Translations: [Acute myocardial infarction of unspecified site, episode of care unspecified]Onset: 07-12-2013 Resolved: 782170-18-4372CxfriiqBxagfqx on above:Problem List clean-up per request of Phys. EHR CmteBiliary tract disease (16 sources)Biliary dyskinesia; Translations: [Other specified diseases of gallbladder]Onset: 08-24-2024 Resolved: 102189-03-2508RrcxajwjStdbkrs dysrhythmias (20 sources)Paroxysmal supraventricular tachycardia; Translations: [Paroxysmal supraventricular tachycardia]Onset: 03-23-2023 Resolved: 915407-12-4831HaozgguXskpylu on above:Problem List clean-up per request of Phys. EHR CmteDiabetes mellitus without complication (20 sources)Diabetes mellitus; Translations: [Diabetes mellitus without mention of complication, type II or unspecified type, not stated as uncontrolled]Onset: 08-20-2023 Resolved: 606601-83-1074PxssuonLnvahumwkl disorders (20 sources)Gastroesophageal reflux disease without esophagitis; Translations: [Gastro-esophageal reflux disease without esophagitis]Onset: 08-24-2024 Resolved: 23-24-5242TjqadueRrwnmiewjaaun and screening for infectious disease (2 sources)Contact with and (suspected) exposure to other viral communicable diseases; Translations: [Encounter for screening for human papillomavirus (HPV)] Onset: 08-12-2021 Resolved: 00-11-1356IuaexskwIcsoxduuie infection (16 sources)Infection caused by Helicobacter pylori; Translations: [Other specified bacterial intestinal infections]Onset: 03-19-2014 Resolved: 112482-54-6813BvjiisizLxvc disorders (20 sources)Reactive depression (situational); Translations: [Major depressive disorder, single episode, unspecified]Onset: 08-20-2023 Resolved: 78-14-8172YyghhtrMrmqzvlllfa chest pain (20 sources)Other chest pain; Translations: [Chest discomfort]Onset: 06-28-2018 Resolved: 080661-52-5045IwpuxldlAshhthq on above:Problem List clean-up per request of Phys. EHR CmteOther circulatory disease (20 sources)Patient post angioplasty; Translations: [Other postprocedural status]Onset: 03-23-2023 Resolved: 297137-86-9869JmdafvmsBgrmg circulatory disease (2 sources)Peripheral vascular angioplasty status; Translations: [Peripheral vascular angioplasty status]Onset: 47-06-2694LtcllywaDaryd gastrointestinal disorders (1 source)Diarrhea, unspecified; Translations: [Diarrhea, unspecified]Onset: 35-51-8398UmylilipFysqm infections; including parasitic (1 source)Personal history of other infectious and parasitic diseases; Translations: [Personal history of other infectious and parasitic diseases] Onset: 51-23-7200RffmukuaCkzka lower respiratory disease (20 sources)Snoring; Translations: [Snoring]Onset: 354577-25-8541Gnlsldpv Other nervous system disorders (4 sources)Anesthesia of skin; Translations: [Disturbance of skin sensation] Onset: 225452-42-8793OobcboikEbjde nervous system disorders (20 sources)Paresthesia of left upper limb; Translations: [Paresthesia of skin] Onset: 845859-52-9783BflmqwqbYkanw nervous system disorders (20 sources)Paresthesia of right upper limb; Translations: [Paresthesia of skin] Onset: 881509-74-7476FeqdevrbRimzn nervous system disorders (20 sources)Paresthesia of foot ; Translations: [Paresthesia of skin]Onset: 172721-06-2713ZobmpusiNazcm nutritional; endocrine; and metabolic disorders (20 sources)Overweight in adulthood with body mass index of 25 or more but less than 30; Translations: [Overweight]Onset: 04-01-2024 Resolved: 083548-05-4863TtoyuilqPvflg nutritional; endocrine; and metabolic disorders (2 sources)Body mass index (BMI) 29.0-29.9, adult; Translations: [Body mass index (BMI) 29.0-29.9, adult]Onset: 74-71-0007HjzomhdvSirv-; endo-; and myocarditis; cardiomyopathy (except that caused by tuberculosis or sexually transmitted disease) (20 sources)Disease of pericardium, unspecified; Translations: [Pericarditis] Onset: 06-28-2018 Resolved: 004697-53-8574WdlplxbwHowjwihi codes; unclassified (20 sources)Edema; Translations: [Edema]Onset: 03-23-2023 Resolved: 323549-69-0393QajrqwvaLqvxsthj codes; unclassified (16 sources)Early satiety; Translations: [Early satiety]Onset: 08-24-2024 Resolved: 195621-90-7501SluspxkrPhwafpbgo-xtmvkxg disorders (20 sources)Nicotine dependence, unspecified, uncomplicated; Translations: [Smokes tobacco daily]Onset: 06-28-2018 Resolved: 352863-48-1671PfxqjbmHpjqmie on above:SMOKES ABOUT 1 PPD;Problem List clean-up per request of Phys. EHR CmteUnclassified (2 sources)Contact with and (suspected) exposure to covid-19 Z20.822Unclassified (2 sources)History of COVID-19 Z86.16Viral infection (1 source)COVID-19 Results Test NameValueInterpretationReference RangeFacilityH Pylori Stool Ag, EIAon 12-04-2024H Pylori Stool Ag, EIANegativeNormalNegativeThe Pending Sale To [facility] Physician GroupComment on above:Result Comment: Performed at: [facility] LabJes[place] [id number] Manager Hvac: Davy Abbott PhD, Phone: [phone] PERFORMED BY: [place] [address] PATHOLOGIST FILTERING MACHINE TENDER ALISSA ADLER M.D.Performed By: #### HPYL STOOL #### [facility] ,Stool Helicobacter pylori antigen detection by enzyme immunoassayOrdered By: Ethan Burt on 12-04-2024H. pylori Ag IA Ql (Stl)NegativeNegativeSelect Medical [facility], BeachwoodComment on above:Performed at: [facility] Lab[address] [id number] Director: Davy Abbott PhD, Phone: [phone] aminotransferase [Enzymatic activity/volume] in Serum or PlasmaOrdered By: MALENA LARRY on 46-55-0768YLD [Catalytic activity/Vol]23 U/L Normal7-52[facility], BeachwoodComment on above:Performed By: #### CMP, CBC #### [facility] [address] [place] [address] USAAlbumin [Mass/volume] in Serum or Plasma by Bromocresol green (BCG) dye binding methoOrdered By: PROVIDER TEMP on 56-18-5330Mnjtzaq BCG dye [Mass/Vol]4.6 g/dL3.5-5.7FThe Bellevue HospitalAlkaline phosphatase [Enzymatic activity/volume] in Serum or PlasmaOrdered By: PROVIDER TEMP on 39-06-1082RZK [Catalytic activity/Vol]85 U/FYkzfei32-803AqxijnpsjSelect Medical [facility], BeachwoodComment on above:Performed By: #### CMP, CBC #### [facility] [address] [place] [address] USAAppearance of UrineOrdered By: PROVIDER TEMP on 12-03-2024 Appearance (U)ClearNormalClearSelect Medical [facility], BeachwoodComment on above: Order Comment: Name Collection Type:: Clean-Voided MidstreamPerformed By: #### UA #### [place] [address] USAAspartate aminotransferase [Enzymatic activity/volume] in Serum or PlasmaOrdered By: PROVIDER TEMP on 30-68-1386IHD [Catalytic activity/Vol]25 U/QRooebu12-47XvfbevghoSelect Medical [facility] Hospital, BeachwoodComment on above: Performed By: #### CMP, CBC #### [place] [address] USABasophils [#/volume] in Blood by Automated countOrdered By: PROVIDER TEMP on 80-01-2048Llquvyyfs (Bld) [#/Vol]0.1 10*3/uLNormal0.0-0.2 [facility], BeachwoodComment on above:Result Comment: PERFORMED BY: [place] [address] PATHOLOGIST FILTERING MACHINE TENDER ALISSA ADLER M.D.Performed By: #### CMP, CBC #### [place] [address] USABasophils/100 leukocytes in Blood by Automated count Ordered By: PROVIDER TEMP on 84-35-2084Rvxujhgfl/100 WBC (Bld)0.9 %Normal. [facility], BeachwoodComment on above:Performed By: #### CMP, CBC #### [facility] [address] [place] [address] USABilirubin Test strip Ql (U)Ordered By: PROVIDER TEMP on 95-34-3292Yravcnjnr Ql (U)NegativeNegativeSelect Medical [facility], [place] Bilirubin.total [Mass/volume] in Serum or PlasmaOrdered By: PROVIDER TEMP on 04-19-2074Pvftqhdzy [Mass/Vol]0.6 mg/dLNormal0.3-1.0[facility], BeachwoodComment on above:Performed By: #### CMP, CBC #### [facility] [address] [place] [address] USACalcium [Mass/volume] in Serum or PlasmaOrdered By: PROVIDER TEMP on 91-88-5422Mjqauqw [Mass/Vol]9.4 mg/dLNormal8.6-10.3FThe Bellevue HospitalComment on above:Performed By: #### CMP, CBC #### [facility] [address] [place] [address] USACarbon dioxide, total [Moles/volume] in Serum or Plasma Ordered By: PROVIDER TEMP on 41-32-3536CX6 [Moles/Vol]23.3 mmol/BQxixlp77.0-31.0 [facility], BeachwoodComment on above:Performed By: #### CMP, CBC #### [place] [address] USAChloride [Moles/volume] in Serum or PlasmaOrdered By: PROVIDER TEMP on 31-59-5735Hyptatyv [Moles/Vol]103 mmol/FQfzpio52-930MhxncmptnSelect Medical [facility], BeachwoodComment on above:Performed By: #### CMP, CBC #### [facility] [address] [place] [address] USAColor of Urine by AutoOrdered By: PROVIDER TEMP on 74-12-8670Udcpj (U)ColorlessNormalYellowSelect Medical [facility] Clinic Rehabilitation Hospital, BeachwoodComment on above:Order Comment: Name Collection Type:: Clean-Voided MidstreamPerformed By: #### UA #### [place] [address] USAComplete Blood Count Auto Diffon 38-14-7889Xmxj Corpuscular HGB Conc33.7 g/iKUfmeyt86.0-35.0The Pending Sale To [facility] Physician GroupComment on above:Performed By: #### CMP, CBC #### [place] [address] USAMonocytes/100 WBC (Bld)16.17 %Normal0.00-20.00The Pending Sale To [facility] Physician GroupComment on above:Performed By: #### CMP, CBC #### [place] [address] USANRBC%0.1 /100{WBC}Normal0-0.5The Pending Sale To [facility] Comment on above:Performed By: #### CMP, CBC #### [place] [address] USAWhite Blood Count13.7 [CFU]/mLHigh3.8-11.6The Pending Sale To [facility] Physician GroupComment on above:Performed By: #### CMP, CBC #### [place] [address] USAComprehensive Metabolic Panelon 67-12-5339Vvrodke [Mass/Vol]4.6 g/dLNormal3.5-5.7The Pending Sale To [facility] Care UnitComment on above: Performed By: #### CMP, CBC #### [place] [address] USACreatinine Clr Calc Gdztznss34.04NormalThe Pending Sale To [facility] Physician GroupComment on above:Result Comment: PERFORMED BY: [place] [address] PATHOLOGIST FILTERING MACHINE TENDER ALISSA ADLER M.D.Performed By: #### CMP, CBC #### [place] [address] USAGFR/1.73 sq M.predicted MDRD (S/P/Bld) [Vol rate/Area] mL/min/{1.73_m2}NormalThe Pending Sale To [facility] Physician GroupComment on above:Performed By: #### CMP, CBC #### [address] [place] [address] USACreatinine [Mass/volume] in Serum or PlasmaOrdered By: PROVIDER TEMP on 41-16-5330Urtakitffm [Mass/Vol]0.73 mg/dLNormal0.60-1.20 [facility], BeachwoodComment on above:Performed By: #### CMP, CBC #### [place] [address] USAEosinophils [#/volume] in Blood by Automated countOrdered By: PROVIDER TEMP on 31-52-8208Fedibiqpnzt (Bld) [#/Vol]1.2 10*3/uLHigh0.0-0.45 [facility], BeachwoodComment on above:Performed By: #### CMP, CBC #### [place] [address] USAEosinophils/100 leukocytes in Blood by Automated count Ordered By: PROVIDER TEMP on 10-17-2524Chnntocpvai/100 WBC (Bld)8.6 %Normal. [facility], BeachwoodComment on above:Performed By: #### CMP, CBC #### [place] [address] USAErythrocyte distribution width [Ratio] by Automated count Ordered By: PROVIDER TEMP on 39-67-0159Ppjwlwopfti distribution width (RBC) [Ratio]13.8 %Fjkspm57.9-15.3FThe Bellevue HospitalComment on above: Performed By: #### CMP, CBC #### [place] [id number] USAErythrocytes [#/volume] in Blood by Automated countOrdered By: PROVIDER TEMP on 21-06-8450DPU (Bld) [#/Vol]5.09 10*6/uLHigh3.60-5.00 [facility], BeachwoodComment on above:Performed By: #### CMP, CBC #### [place] [address] USAGlucose [Mass/volume] in Serum or PlasmaOrdered By: PROVIDER TEMP on 70-88-1793Ptbwuyr [Mass/Vol]98 mg/zSEhwvkz63-948SvtmdeepaSelect Medical [facility] Rehabilitation Hospital, BeachwoodComment on above:ADA recommended reference rangeRandom Glucose Reference [...] reference rangePerformed By: #### CMP, CBC #### [facility] [address] [place] [address] USAGlucose [Mass/volume] in Urine by Test stripOrdered By: PROVIDER TEMP on 93-03-0425Jabvnrn Test strip (U) [Mass/Vol]Normal mg/dLNormal [facility], BeachwoodHematocrit [Volume Fraction] of Blood by Automated countOrdered By: PROVIDER TEMP on 46-92-9918Ohhrnnbwij (Bld) [Volume fraction]47.0 %High34.0-46.4FThe Bellevue HospitalComment on above: Performed By: #### CMP, CBC #### [facility] [address] [place] [address] USAHemoglobin Test strip Ql (U)Ordered By: PROVIDER TEMP on 39-33-3211Uherzdulbh Ql (U)NegativeNegThe [facility] Hospital Hemoglobin [Mass/volume] in BloodOrdered By: PROVIDER TEMP on 12-03-2024 Hemoglobin (Bld) [Mass/Vol]15.8 g/bYDyax16.8-15.4FThe Bellevue HospitalComment on above:Performed By: #### CMP, CBC #### [facility] [address] [place] [address] USAKetones [Presence] in Urine by Test stripOrdered By: PROVIDER TEMP on 28-44-7951Xgacqin Ql (U)NegativeNormalNegThe Bellevue HospitalComment on above:Order Comment: Name Collection Type:: Clean-Voided MidstreamPerformed By: #### UA #### [facility] [address] [place] [address] USALeukocyte esterase [Presence] in Urine by Test strip Ordered By: PROVIDER TEMP on 39-35-9639Acygozjvc esterase Test strip Ql (U) NegativeNormalNegativeSelect Medical [facility], BeachwoodComment on above:Order Comment: Name Collection Type:: Clean-Voided MidstreamPerformed By: #### UA #### [place] [address] USALeukocytes [#/volume] corrected for nucleated erythrocytes in Blood by Automated counOrdered By: PROVIDER TEMP on 17-53-4022BMH corrected for nucl RBC Auto (Bld) [#/Vol]13.7 10*3/uLHigh3.8-11.6FThe Bellevue HospitalLeukocytes [#/volume] in Blood by Automated countOrdered By: PROVIDER TEMP on 25-64-4777LVA (Bld) [#/Vol]13.7 10*3/uLHigh3.8-11.6FThe Bellevue HospitalComment on above:Performed By: #### CMP, CBC #### [place] [address] USALymphocytes [#/volume] in Blood by Automated countOrdered By: PROVIDER TEMP on 60-13-6022Nxeggeyuqiv (Bld) [#/Vol]2.5 10*3/uLNormal 1.00-4.8[facility], BeachwoodComment on above:Performed By: #### CMP, CBC #### [place] [address] USALymphocytes/100 leukocytes in Blood by Automated count Ordered By: PROVIDER TEMP on 86-05-7277Hjrzkvqyeii/100 WBC (Bld)18.4 %Normal. [facility], BeachwoodComment on above:Performed By: #### CMP, CBC #### [place] [address] USAMCH [Entitic mass] by Automated countOrdered By: PROVIDER TEMP on 58-18-4757IHZ (RBC) [Entitic mass]31.1 zyKfqxpb89.7-34.3FThe Bellevue HospitalComment on above:Performed By: #### CMP, CBC #### [facility] [address] [place] [address] USAMCHC Auto (RBC) [Mass/Vol]Ordered By: PROVIDER TEMP on 95-19-5579XSYL (RBC) [Mass/Vol]33.7 g/dL32.0-35.0[facility], BeachwoodMCV [Entitic volume] by Automated countOrdered By: PROVIDER TEMP on 50-30-3700FRW (RBC) [Entitic vol]92.4 oEYkkxzh84-509DfocddbxdSelect Medical [facility], BeachwoodComment on above:Performed By: #### CMP, CBC #### [facility] [address] [place] [address] USAMonocyte distribution width [Entitic volume] in Blood by AutomatedOrdered By: PROVIDER TEMP on 55-90-9159Yphiekio distribution width Auto (Bld) [Entitic vol]16.17 %0.00-20.00[facility], BeachwoodMonocytes [#/volume] in Blood by Automated countOrdered By: PROVIDER TEMP on 12-03-2024 Monocytes (Bld) [#/Vol]1.4 10*3/uLHigh0.0-0.8[facility] [place] Comment on above:Performed By: #### CMP, CBC #### [facility] [address] [place], [place] [address] USAMonocytes/100 leukocytes in Blood by Automated count Ordered By: PROVIDER TEMP on 11-64-5553Wespwxfkg/100 WBC (Bld)9.9 %Normal. [facility], BeachwoodComment on above:Performed By: #### CMP, CBC #### [facility] [address] [place] [address] USANeutrophils [#/volume] in Blood by Automated countOrdered By: PROVIDER TEMP on 37-61-7177Ctaxwfwqsre (Bld) [#/Vol]8.5 10*3/uLHigh1.8-7.7 [facility], BeachwoodComment on above:Performed By: #### CMP, CBC #### [facility] [address] [place], [place] [address] USANeutrophils/100 leukocytes in Blood by Automated count Ordered By: PROVIDER TEMP on 51-49-9003Mmwzfadibjt/100 WBC (Bld)62.2 %Normal. [facility], BeachwoodComment on above:Performed By: #### CMP, CBC #### [facility] [address] [place] [address] USANitrite Test strip Ql (U)Ordered By: PROVIDER TEMP on 87-72-3983Ipmexua Ql (U)NegativeNegativeSelect Medical [facility], BeachwoodNo Panel InformationOrdered By: PROVIDER TEMP on 59-88-0997Xhhjudfih GFR (CKD-EPI)> 60.0 mL/MinSelect Medical Cleveland Clinic Rehabilitation Hospital, BeachwoodPharmacy Creatinine Clearance (Chem 88.04[facility], BeachwoodNucleated erythrocytes [Presence] in Blood by Automated countOrdered By: PROVIDER TEMP on 80-09-1739Zzhfhretc RBC Auto Ql (Bld)0.1 /100{WBC}0-0.5FThe Bellevue HospitalPlatelet mean volume [Entitic volume] in Blood by Automated countOrdered By: PROVIDER TEMP on 04-53-3038Hlhswdzx mean volume (Bld) [Entitic vol]8.2 fLNormal6.3-10.7FThe Bellevue HospitalComment on above:Performed By: #### CMP, CBC #### [facility] [address] [place] [address] USAPlatelets [#/volume] in Blood by Automated countOrdered By: PROVIDER TEMP on 02-73-0393Jsttsjfsa (Bld) [#/Vol]375 10*3/pGNfzuow375-553 [facility], BeachwoodComment on above:Performed By: #### CMP, CBC #### [facility] [address] [place] [address] USAPotassium [Moles/volume] in Serum or PlasmaOrdered By: PROVIDER TEMP on 62-85-4474Wonqreqmr [Moles/Vol]4.4 mmol/LNormal3.5-5.1FThe Bellevue HospitalComment on above:Hemolysis is present at a level that could interfere with the result.Contact lab if redraw is requiredResult Comment: Hemolysis is present at a level that could interfere with the result. Contact lab if redraw is requiredPerformed By: #### CMP, CBC #### [place] [address] USAProtein Test strip (U) [Mass/Vol]Ordered By: PROVIDER TEMP on 68-76-6359Vdngfdc (U) [Mass/Vol]NegativeNegativeSelect Medical [facility] Rehabilitation Hospital, BeachwoodProtein [Mass/volume] in Serum or PlasmaOrdered By: PROVIDER TEMP on 27-17-6660Drtdjvh [Mass/Vol]8.0 g/dLNormal6.4-8.9[facility], BeachwoodComment on above:Performed By: #### CMP, CBC #### [place] [address] USASerum globulin measurement by calculation (mass/volume) Ordered By: PROVIDER TEMP on 37-37-1359Tgwfmder (S) [Mass/Vol]3.4 g/dLNormal [facility], BeachwoodComment on above:Performed By: #### CMP, CBC #### [place] [address] USASerum or plasma albumin/globulin mass ratioOrdered By: PROVIDER TEMP on 59-44-8490Rabptso/Globulin [Mass ratio]1.4 {ratio}Normal [facility], BeachwoodComment on above:Performed By: #### CMP, CBC #### [place] [address] USASerum or plasma anion gap determinationOrdered By: PROVIDER TEMP on 96-38-3544Qnyuf gap [Moles/Vol]12.1 mmol/LNormal6.0-15.0 [facility], BeachwoodComment on above:Performed By: #### CMP, CBC #### [place] [address] USASodium [Moles/volume] in Serum or PlasmaOrdered By: PROVIDER TEMP on 21-17-8875Zwcdnb [Moles/Vol]134 mmol/OUku160-190YjlirpuehSelect Medical [facility] Clinic Rehabilitation Hospital, BeachwoodComment on above:Performed By: #### CMP, CBC #### [place] [address] USASpecific gravity Test strip (U) [Rel density]Ordered By: PROVIDER TEMP on 49-74-7738Cxfgmwck gravity (U) [Rel density]1.0031.001-1.030 [facility], BeachwoodUrea nitrogen [Mass/volume] in Serum or Plasma Ordered By: PROVIDER TEMP on 48-85-4971Blmn nitrogen [Mass/Vol]7 mg/dLNormal01-02 [facility], BeachwoodComment on above:Performed By: #### CMP, CBC #### [place] [address] USAUrinalysison 48-91-3627Adchoranq,UrineNegativeNormal NegativeThe Pending Sale To Novant Health Physician GroupComment on above:Order Comment: Name Collection Type:: Clean-Voided MidstreamPerformed By: #### UA #### [place] [address] USAGlucose Ql (U)NormalNormalNormalThe Pending Sale To Novant Health Physician GroupComment on above:Order Comment: Name Collection Type:: Clean-Voided MidstreamPerformed By: #### UA #### [place] [address] USANitrite,UrineNegativeNormalNegativeThe Pending Sale To Nov[facility] Health Physician GroupComment on above:Order Comment: Name Collection Type:: Clean-Voided MidstreamPerformed By: #### UA #### [place] [address] USAOccult Blood,UrineNegativeNormalNegativeThe Pending Sale To Nov[facility] Health Physician GroupComment on above:Order Comment: Name Collection Type:: Clean- Voided MidstreamResult Comment: PERFORMED BY: [place] [address] PATHOLOGIST FILTERING MACHINE TENDER ALISSA ADLER M.D.Performed By: #### UA #### [place] [address] USAProtein,UrineNegativeNormalNegativeThe Pending Sale To Nov[facility] Health Physician GroupComment on above:Order Comment: Name Collection Type:: Clean-Voided MidstreamPerformed By: #### UA #### [place] [address] USASpecificy [place],Urine1.385Idqfnb8.001-1.030The Pending Sale To [facility] Health Physician GroupComment on above:Order Comment: Name Collection Type:: Clean- Voided MidstreamPerformed By: #### UA #### [place] [address] USAUrobilinogen,UrineNormalNormalNormalThe Pending Sale To Nov[facility] Health Physician GroupComment on above:Order Comment: Name Collection Type:: Clean- Voided MidstreamPerformed By: #### UA #### [place] [address] USAUrobilinogen Test strip (U) [Mass/Vol]Ordered By: PROVIDER TEMP on 46-35-9166Wwxwyvtwqjrj (U) [Mass/Vol]Normal mg/dLNormKeenan Private HospitalpH of Urine by Test stripOrdered By: PROVIDER TEMP on 20-90-3237fQ (U)5.0 [pH]Normal5.0-9.0[facility], BeachwoodComment on above:Order Comment: Name Collection Type:: Clean-Voided MidstreamPerformed By: #### UA #### [place] [address] USABasic Metabolic Panelon 05-03-0717IFN/1.73 sq M.predicted MDRD (S/P/Bld) [Vol rate/Area]mL/min/{1.73_m2}NormalThe Pending Sale To [facility] Health Physician GroupComment on above:Performed By: #### BMP, CBC #### [place] [address] USABasic metabolic 1998 panelon 18-61-4790Uuris gap [Moles/Vol]12.4 mmol/L6.0 - 15.0 meq/LNOMS HealthcareCalcium [Mass/Vol]9.3 mg/dL 8.6 - 10.3 mg/dLNOMS HealthcareChloride [Moles/Vol]107 mmol/L98 - 107 mmol/LNOMS HealthcareCO2 [Moles/Vol]22.8 mmol/L21.0 - 31.0 mmol/LNOMS HealthcareCreatinine (U) [Mass/Vol]0.64 mg/dL0.60 - 1.20 mg/dLNOMS HealthcareESTIMATED GFRmL/MinNOMS HealthcareGlucose [Mass/Vol]97 mg/dL70 - 100 mg/dLLONE PEAK HOSPITAL HealthcareComment on above:Random Glucose Reference Range is dependent on time and content of last meal. Glucose of more than 200 mg/dL in a nonstressed, ambulatory subject supports the diagnosis of Diabetes Mellitus. ADA recommended reference range Potassium [Moles/Vol]4.2 mmol/L3.5 - 5.1 mmol/LNOMS HealthcareSodium [Moles/Vol] 138 mmol/L136 - 145 mmol/LNOMS HealthcareUrea nitrogen [Mass/Vol]12 mg/dL7 - 25 mg/dLNOSainte Genevieve County Memorial HospitalNOCT HealthcareBasophils [#/volume] in Blood by Automated countOrdered By: Kilo Beasley on 88-21-5090Xljvfcixh (Bld) [#/Vol]0.1 10*3/uL Normal0.0-0.2FThe Bellevue HospitalComment on above:Result Comment: PERFORMED BY: [place] [address] PATHOLOGIST FILTERING MACHINE TENDER ALISSA ADLER M.D.Performed By: #### BMP, CBC #### [facility] [address] [place] [address] USABasophils/100 leukocytes in Blood by Automated count Ordered By: Kilo Beasley on 04-65-1964Ecumwmsuc/100 WBC (Bld)0.7 %Normal. [facility], BeachwoodComment on above:Performed By: #### BMP, CBC #### [facility] [address] [place] [address] USACBC W Auto Differential panel (Bld)on 85-77-4475Rwfwbvbbo (Bld) [#/Vol]0.1 10*3/uL0.0 - 0.2 10*3/uLNOMS HealthcareBasophils/100 WBC Manual cnt (Syn fld)0.7 %.NOMS HealthcareEosinophils (Bld) [#/Vol]0.5 10*3/uLHigh0.0 - 0.45 10*3/uLNOCT HealthcareEosinophils/100 WBC Manual cnt (Syn fld)4.3 %.[facility] HospitalErythrocyte distribution width (RBC) [Ratio]13.8 %11.9 - 15.3 %[facility] HospitalHematocrit (Bld) [Volume fraction]41.8 %34.0 - 46.4 %[facility] Hemoglobin (Bld) [Mass/Vol]14.3 g/dL11.8 - 15.4 g/dLPike County Memorial Hospital Interpretation and review of laboratory resultsAbnormalPike County Memorial Hospital Lymphocytes (Bld) [#/Vol]2.4 10*3/uL1.00 - 4.8 10*3/uLNOCT Healthcare Lymphocytes/100 WBC Manual cnt (Syn fld)20.7 %.[facility] HospitalMCH (RBC) [Entitic mass]31.8 pg24.7 - 34.3 pgSSM Health Cardinal Glennon Children's HospitalHC (RBC) [Mass/Vol]34.2 g/dL32.0 - 35.0 g/dLSSM Health Cardinal Glennon Children's HospitalV (RBC) [Entitic vol]93.1 fL80 - 100 fLPike County Memorial Hospital Monocytes (Bld) [#/Vol]1.3 10*3/uLHigh0.0 - 0.8 10*3/uLPike County Memorial Hospital Monocytes+Macrophages/100 WBC Manual cnt (Syn fld)10.8 %.[facility] Neutrophils (Bld) [#/Vol]7.3 10*3/uL1.8 - 7.7 10*3/uLNOCT Healthcare Neutrophils/100 WBC Manual cnt (Syn fld)63.5 %.[facility] Memorial HospitalNRBC0.1 /100{WBC}0 - 0.5 /100{WBC}[facility] HospitalPlatelet mean volume (Bld) [Entitic vol]8.7 fL6.3 - 10.7 fLPike County Memorial HospitalPlatelets (Bld) [#/Vol]298 10*3/uL150 - 450 10*3/uLNOSainte Genevieve County Memorial HospitalRBC LM.HPF (Urine sed) [#/Area]4.49 10*6/uL3.60 - 5.00 10*6/uLNOCT HealthcareWBC (Bld) [#/Vol]11.6 10*3/uL3.8 - 11.6 10*3/uLNOMS HealthcareWBC LM.HPF (Urine sed) [#/Area]11.6 10*3/uL3.8 - 11.6 10*3/uLNOMS HealthcareNOMS HealthcareCalcium [Mass/volume] in Serum or PlasmaOrdered By: Kilo Beasley on 54-51-4126Eqzfhqr [Mass/Vol]9.3 mg/dLNormal8.6-10.3FThe Bellevue HospitalComment on above:Result Comment: PERFORMED BY: [place] [address] PATHOLOGIST FILTERING MACHINE TENDER ALISSA ADLER M.D.Performed By: #### BMP, CBC #### [place] [address] USACarbon dioxide, total [Moles/volume] in Serum or Plasma Ordered By: Kilo Beasley on 69-29-3151EE0 [Moles/Vol]22.8 mmol/LNormal 21.0-31.0[facility], BeachwoodComment on above:Performed By: #### BMP, CBC #### [place] [address] USAChloride [Moles/volume] in Serum or PlasmaOrdered By: Kilo Beasley on 88-66-3255Xktvxryu [Moles/Vol]107 mmol/MCjpmrp13-968XsbjibncySelect Medical [facility] Hospital, BeachwoodComment on above:Performed By: #### BMP, CBC #### [place] [address] USAComplete Blood Count Auto Diffon 93-52-3007Sgne Corpuscular HGB Conc34.2 g/uHOlvrde41.0-35.0The Pending Sale To [facility] Health Physician GroupComment on above:Performed By: #### BMP, CBC #### [place] [address] USANRBC%0.1 /100{WBC}Normal0-0.5The Pending Sale To [facility] Comment on above:Performed By: #### BMP, CBC #### [place] [address] USACreatinine [Mass/volume] in Serum or PlasmaOrdered By: Kilo Beasley on 31-34-9331Hdfnpyuylt [Mass/Vol]0.64 mg/dLNormal0.60-1.20 [facility], BeachwoodComment on above:Performed By: #### BMP, CBC #### [facility] [address] [place] [address] USAECG 12 lead ECGon 30-63-4894SCI 12 lead ECGCOMMUNITY REGIONAL MEDICAL CENTER Main [place] [address] [place] [address] Electrocardiograph Report Signed Patient: Shefali Tillman MR#: [id number] 187 : 1970 Acct:[id number] Age/Sex: 54 / F ADM Date: 11/21/24 Loc: Room: Type: [facility] Attending Dr: Kilo Beasley DO Ordering Provider: [...] change was found Confirmed by ISABEL WOODS [facility] HOSPITALDEUCE (137) on 11/21/2024 3:54:39 PM Referred By: Electronically Signed By: DEUCE HALL MD [facility] Transcribed By: MUS Signed By Deuce Hall MD, FACC 11/21/24 1554[facility] Physician GroupEosinophils [#/volume] in Blood by Automated countOrdered By: Kilo Beasley on 81-27-4723Kuswgssvpmu (Bld) [#/Vol]0.5 10*3/uLHigh0.0-0.45[facility], BeachwoodComment on above: Performed By: #### BMP, CBC #### [place] [address] USAEosinophils/100 leukocytes in Blood by Automated count Ordered By: Kilo Beasley on 18-71-0993Ryhnldibopi/100 WBC (Bld)4.3 %Normal. [facility], BeachwoodComment on above:Performed By: #### BMP, CBC #### [facility] [address] [place] [address] USAErythrocyte distribution width [Ratio] by Automated count Ordered By: Kilo Beasley on 40-66-9665Nhbffrnerey distribution width (RBC) [Ratio]13.8 %Lvsjho85.9-15.3FThe Bellevue HospitalComment on above: Performed By: #### BMP, CBC #### [facility] [address] [place] [address] USAErythrocytes [#/volume] in Blood by Automated countOrdered By: Kilo Beasley on 37-06-6893BKU (Bld) [#/Vol]4.49 10*6/uLNormal3.60-5.00 [facility], BeachwoodComment on above:Performed By: #### BMP, CBC #### [facility] [address] [place] [address] USAGlucose [Mass/volume] in Serum or PlasmaOrdered By: Kilo Beasley on 67-73-3001Upnjmph [Mass/Vol]97 mg/pICjzpbt55-429ElaixarduSelect Medical [facility] Hospital, BeachwoodComment on above:ADA recommended reference rangeRandom Glucose Reference [...] reference rangePerformed By: #### BMP, CBC #### [facility] [address] [place] [address] USAHematocrit [Volume Fraction] of Blood by Automated count Ordered By: Kilo Beasley on 14-10-9042Xmvfjfgoul (Bld) [Volume fraction]41.8 %Gskccp77.0-46.4FThe Bellevue HospitalComment on above:Performed By: #### BMP, CBC #### [facility] [address] [place] [address] USAHemoglobin [Mass/volume] in BloodOrdered By: Kilo Beasley on 27-47-0893Wbutgwehhx (Bld) [Mass/Vol]14.3 g/wOSnkyrc69.8-15.4FThe Bellevue HospitalComment on above:Performed By: #### BMP, CBC #### [facility] [address] [place] [address] USALeukocytes [#/volume] corrected for nucleated erythrocytes in Blood by Automated counOrdered By: Kilo Beasley on 52-94-6087GXF corrected for nucl RBC Auto (Bld) [#/Vol]11.6 10*3/uL3.8-11.6FThe Bellevue HospitalLeukocytes [#/volume] in Blood by Automated countOrdered By: Kilo Beasley on 48-96-1013WTK (Bld) [#/Vol]11.6 10*3/uLNormal3.8-11.6 [facility], BeachwoodComment on above:Performed By: #### BMP, CBC #### [facility] [address] [place] [address] USALymphocytes [#/volume] in Blood by Automated countOrdered By: Kilo Beasley on 99-11-6196Abpgccuecvj (Bld) [#/Vol]2.4 10*3/uLNormal 1.00-4.8[facility], BeachwoodComment on above:Performed By: #### BMP, CBC #### [facility] [address] [place] [address] USALymphocytes/100 leukocytes in Blood by Automated count Ordered By: Kilo Beasley on 09-42-0825Aonjkgptfth/100 WBC (Bld)20.7 %Normal. [facility], BeachwoodComment on above:Performed By: #### BMP, CBC #### [facility] [address] [place] [address] USAMCH [Entitic mass] by Automated countOrdered By: Kilo Beasley on 94-56-9560DFF (RBC) [Entitic mass]31.8 yiIqecbz72.7-34.3FThe Bellevue HospitalComment on above:Performed By: #### BMP, CBC #### [address] Auto (RBC) [Mass/Vol]Ordered By: Kilo Beasley on 35-91-2155CJYW (RBC) [Mass/Vol]34.2 g/dL32.0-35.0[facility], BeachwoodMCV [Entitic volume] by Automated countOrdered By: Kilo Beasley on 76-09-1251MON (RBC) [Entitic vol]93.1 yNDkezjp30-013HmagzhqdzSelect Medical [facility] Clinic Rehabilitation Hospital, BeachwoodComment on above:Performed By: #### BMP, CBC #### [place] [address] USAMonocytes [#/volume] in Blood by Automated countOrdered By: Kilo Beasley on 20-13-5426Dlabtomct (Bld) [#/Vol]1.3 10*3/uLHigh0.0-0.8 [facility], BeachwoodComment on above:Performed By: #### BMP, CBC #### [facility] [address] [place] [address] USAMonocytes/100 leukocytes in Blood by Automated count Ordered By: Kilo Beasley on 82-73-7437Xxtkfrvkb/100 WBC (Bld)10.8 %Normal. [facility], BeachwoodComment on above:Performed By: #### BMP, CBC #### [place] [address] USANeutrophils [#/volume] in Blood by Automated countOrdered By: Kilo Beasley on 26-10-8680Zthnffiomaj (Bld) [#/Vol]7.3 10*3/uLNormal 1.8-7.7FThe Bellevue HospitalComment on above:Performed By: #### BMP, CBC #### [place] [address] USANeutrophils/100 leukocytes in Blood by Automated count Ordered By: Kilo Beasley on 01-85-8558Ikojuhjamzn/100 WBC (Bld)63.5 %Normal. [facility], BeachwoodComment on above:Performed By: #### BMP, CBC #### [place] [address] USANo Panel InformationOrdered By: Kilo Beasley on 79-76-9209Xhrastjgi GFR (CKD-EPI)> 60.0 mL/MinSelect Medical [facility] Clinic [facility], [place]wood Pharmacy Creatinine Clearance (ChemN/AFThe Bellevue HospitalNucleated erythrocytes [Presence] in Blood by Automated countOrdered By: Kilo Beasley on 01-36-3878Gdtdcbsum RBC Auto Ql (Bld)0.1 /100{WBC}0-0.5FThe Bellevue HospitalPlatelet mean volume [Entitic volume] in Blood by Automated count Ordered By: Kilo Beasley on 95-98-8928Oopjibqf mean volume (Bld) [Entitic vol]8.7 fLNormal6.3-10.7FThe Bellevue HospitalComment on above: Performed By: #### BMP, CBC #### [place] [address] USAPlatelets [#/volume] in Blood by Automated countOrdered By: Kilo Beasley on 94-85-3380Ceaejdxbk (Bld) [#/Vol]298 10*3/bADtpheb624-086 [facility], BeachwoodComment on above:Performed By: #### BMP, CBC #### [facility] [address] [place] [address] USAPotassium [Moles/volume] in Serum or PlasmaOrdered By: Kilo Beasley on 43-28-7753Ldxvmyxqy [Moles/Vol]4.2 mmol/LNormal3.5-5.1 [facility], BeachwoodComment on above:Performed By: #### BMP, CBC #### [place] [address] USASerum or plasma anion gap determinationOrdered By: Kilo Beasley on 38-41-4657Outtl gap [Moles/Vol]12.4 mmol/LNormal6.0-15.0 [facility], BeachwoodComment on above:Performed By: #### KARSON, CBC #### [facility] [address] [place] [address] USASodium [Moles/volume] in Serum or PlasmaOrdered By: Kilo Beasley on 58-81-6825Lyueyr [Moles/Vol]138 mmol/FMiafho094-922QqihdmixbSelect Medical [facility] Clinic [facility], BeachwoodComment on above:Performed By: #### KARSON, CBC #### [facility] [address] [place], [place] [address] USAUrea nitrogen [Mass/volume] in Serum or PlasmaOrdered By: Kilo Beasley on 70-89-8409Kkwu nitrogen [Mass/Vol]12 mg/dLNormal7-25[facility], BeachwoodComment on above:Performed By: #### KARSON, CBC #### [facility] [address] [place], [place] [address] USALon 10-24-2024L Specimen: [id number] Received: 10/24/24 Status: DEBORAHRitu Rodriguez Num: [id number] Spec Type: Surgical Subm Dr: Ethan Burt MD Tissues: A Colon Biopsy (SIGMOID COLON POLYPS) B Colon Biopsy (RECTAL POLYPS) Procedures: HE/4, Gross/Micro L4/2 Age/ Patient Sex Location Account Attending Physician Shefali Tillman 54/F [id number] Ethan Burt MD SPEC NUM: [id number] RECD: 10/24/24 STATUS: CHOLO RODRIGUEZ NUM: [id number] MALIA: 10/24/24-[address] [facility] [address]: Ethan Burt MD ENTERED: 10/24/[address] [facility] [address]: DONTAE TYPE: Surgical DEPT: S ENTERED BY: [id number] RECV BY: [id number] ORDERED: HE/4, Gross/Micro L4/2 ORDERED: HE/4, Gross/Micro [...] submitted in a single cassette. (1, ns, [id number] A) J Part B is received in formalin labeled with the patients name, date of , and rectal polyp are berkowitz-byrd, focally erythematous, friable polypoid fragments, 2 x 1.4 x 0.3 cm in aggregate. The specimen is filtered and entirely submitted in a single cassette. (1, ns, [id number] B) JG Specimen: [id number] Received: 10/24/24 Status: CHOLO Rodriguez Num: [id number] Spec Type: Surgical Subm Dr: Ethan Burt MD Tissues: A Colon Biopsy (SIGMOID COLON POLYPS) B Colon Biopsy (RECTAL POLYPS) Procedures: HE/Jossie, Gross/Micro L4/2 Patient: Shefali Tillman [id number] (Continued) Specimen: [id number] Received: 10/24/24 (Continued) Signed (signature on file) Rabia Wheat MD 10/27/24 1055 Specimen: Received: 10/24/24 Status: CHOLO Rodriguez Num: [id number] Spec Type: Surgical Subm Dr: Ethan Burt MD Tissues: A Colon Biopsy (SIGMOID COLON POLYPS) B Colon Biopsy (RECTAL POLYPS) Procedures: HE/4, Gross/Micro L4/2 Patient: Shefali Tillman [id number] (Continued) Specimen: [id number] Received: 10/24/24 (Continued) Microscopic Description A B: Microscopic examination is performed. CPT Codes 68112 x2 Specimen: [id number] Received: 10/24/24 Status: CHOLO Rodriguez Num: [id number] Spec Type: Surgical Subm Dr: Ethan Burt MD Tissues: A Colon Biopsy (SIGMOID COLON POLYPS) B Colon Biopsy (RECTAL POLYPS) Procedures: HE/4, Gross/Micro L4/2 Patient: Shefali Tillman [id number] (Continued) Signed (signature on file) Naun Wheat MD 10/27/24 [facility]5NormAdventHealth Palm [facility] Parkway [facility] head/brain wo [facility] [id number] head/brain wo [facility] [place] [address] MRI Report Signed Patient: Shefali Tillman MR#: [id number] 187 : 1970 Acct:[id number] Age/Sex: 54 / F ADM Date: 08/18/24 Loc: MR Room: Type: [facility] Attending Dr: Destiny Anders APRN Copies to: [...] Supa Melgoza M.D.08/19/2024 8:58 AM Dictation Location: [place] [address] Transcribed By: [facility] 08/19/24 0858 Dictated By: Supa Melgoza MD 08/19/24 0849 Signed By: 08/19/24 0858[facility] Physician GroupOro Valley Hospitaletic resonance imaging reportOrdered By: Supa Megloza on 62-15-1109Albbd reportCOMMUNITY REGIONAL MEDICAL [facility]ENTER Main [place] [address] [place] [address] MRI Report Signed Patient: Shefali Tillman MR#: [id number] : 1970 Acct:[id number] Age/Sex: 54 / F ADM Date: 5 Loc: MR Room: Type: [facility] Attending Dr: Destiny Anders APRN Copies to: [...] Supa Melgoza M.D.08/19/2024 8:58 AM Dictation Location: [place] [address] Transcribed By: [facility] 08/19/24857 Dictated By: Supa Melgoza MD 08/19/2449 Signed By: 08/19/24857 [facility] [place] Work Phone: emg [phone] Extremitieson 95-16-5912OGO/NCS BUE Normal studyNOSaint John's Breech [facility] HealthcareNVC 04-22 Nerveson 51-15-2300EFG/NCS BUE Normal [facility] HealthcareInfluenza virus B Ag [Presence] in Upper respiratory specimen by Rapid immunoassayon 30-82-6886JLTNI Ag IA.rapid Ql (Nph)Influenza virus B Ag [Presence] in Upper respiratory specimen by Rapid immunoassaySelect Medical [facility], BeachwoodNo Panel Informationon 06-19-2024 Influenza Type A (Rapid)NegativeSelect Medical Cleveland Clinic Rehabilitation Hospital, BeachwoodPO SARS CoV-2 AntigenNegativeSelect Medical [facility] Hospital, BeachwoodNo Panel InformationOrdered By: Mag Perry on 57-50-7049Gbdcw Strep (POC)[facility] [place] Quick Strep (POC)[facility] CenterURGICAL PATHOLOGY REFERENCE LAB CONSULTon 51-99-7640PMXQ REPORTNormalCTriHealth Good Samaritan HospitalComment on above:Order Comment: Specimen Type: FORMALIN-FIXED PARAFFIN-EMBEDDED TISSUE SPECIMEN Ordering Facility: [facility] [place] Address: [address] [place] [address]Frmlwl Comment: Surgical Pathology Report Case: [id number] Authorizing Provider: Ethan Burt MD Collected: 04/25/2024 12:27 PM Ordering Location: [facility] Received: 04/25/2024 12:26 PM [facility] Pathologist: Colton Zapien MD Specimen: Slide(s), 11 SLIDES ([id number])Performed By: #### [id number] #### [facility] CLIA [id number] [address] STATES OF AMERICACLINICAL HISTORYCONSULT REQUESTEDNoUC [facility] on above:Order Comment: Specimen Type: FORMALIN-FIXED PARAFFIN-EMBEDDED TISSUE SPECIMEN Ordering Facility: [facility] Address: [place], [place] [address]Psidbzrtc By: #### [id number] #### [facility] CLIA [id number] [address] [place] [address] OF [facility] HEALTHDIAGNOSIS COMMENTMadison Health on above:Order Comment: Specimen Type: FORMALIN-FIXED PARAFFIN-EMBEDDED TISSUE SPECIMEN Ordering Facility: [facility] Address: [place], [place] [address]Hzisae Comment: Thank you for allowing us the opportunity to review this case in consultation representing ascending colon polyp from a 54-year-old female. The sections reveal serrated polyp with crypts showing basal dilatation, most consistent with sessile serrated polyp. Thank you for sending this case in consultation. Please do not hesitate to contact the GI Consultation Service at [phone] with questions or if additional follow up information becomes available.Performed By: #### [id number] #### [facility] CLIA [id number] [address] [place] [address] [facility]AGNOSISNoSt. [facility] on above:Order Comment: Specimen Type: FORMALIN-FIXED PARAFFIN-EMBEDDED TISSUE SPECIMEN Ordering Facility: [facility] Address: [place], [place] [address]Fogoko Comment: Ascending colon polyp, polypectomy (C1, C2): - Sessile serrated polyp. Performed By: #### [id number] #### [facility] CLIA [id number] [address] [place], [place] [address] [facility] OF AMERICAFINAL PERFORMING LABNoal [facility] on above:Order Comment: Specimen Type: FORMALIN-FIXED PARAFFIN-EMBEDDED TISSUE SPECIMEN Ordering Facility: [facility] Address: [place], [place] [address]Xivqnj Comment: Diagnostic interpretation performed at: [facility], [facility] [place][Note 2], [place] [address] CLIA# [id number] Treasury Associate: Nino Chaconformed By: #### [id number] #### [facility] CLIA [id number] [facility] [place] [address] [place] STATES OF AMERICAPathology study report documentOrdered By: Naun Wheat on 50-96-4407Rjgrtkrju studySelect [facility] Other lon 04-18-2024L Specimen: [id number] Received: 04/18/24 Status: CHOLO Rodriguez Num: [id number] Spec Type: Surgical Subm Dr: Ethan Burt MD Tissues: A GASTRIC FOR HP (GASTRIC BX R/O H PYLORI) B Esophagus Biopsy (ESOPHAGUS BX RO FRANK'S) C Colon Biopsy (ASCENDING COLON POLYP) D Colon Biopsy (SIGMOID POLYPS) E Colon Biopsy (RECTAL POLYPS) Procedures: HE/14, Gross/Micro L4/5, H PYLORI Age/ Patient Sex Location Account Attending Physician Shefali Tillman 54/F [id number] Ethan Burt MD SPEC NUM: [id number] RECD: 04/18/24 STATUS: CHOLO RODRIGUEZ NUM: [id number] MALIA: 04/18/[address] [facility] [address]: Ethan Burt MD ENTERED: 04/18/[address] [facility] [address]: DONTAE TYPE: Surgical DEPT: S ENTERED BY: [id number] RECV BY: [id number] ORDERED: HE/14, Gross/Micro L4/5, H PYLORI ORDERED: HE/14, Gross/Micro L4/5, H PYLORI Supplemental Report Addendum 1 Entered: 05/07/24 This case was sent to [facility] for consultation. Their diagnosis is as follows: -Ascending colon polyp, polypectomy: Sessile serrated polyp. Please see attached consultation report from [facility] for diagnostic details. Addendum Signed (signature on file) Melvin Alvarado MD 05/07/24 7640 Pathological Diagnosis A. Stomach, biopsy: - Antral and oxyntic-type gastric mucosa with moderate chronic inactive gastritis. - No evidence of dysplasia or malignancy identified - Helicobacter pylori microorganisms identified with immunohistochemical stain. Specimen: [id number] Received: 04/18/24 Status: CHOLO Rodriguez Num: [id number] Spec Type: Surgical Subm Dr: Ethan Burt MD Tissues: A GASTRIC FOR HP (GASTRIC BX R/O H PYLORI) B Esophagus Biopsy (ESOPHAGUS BX RO FRANK'S) C Colon Biopsy (ASCENDING COLON POLYP) D Colon Biopsy (SIGMOID POLYPS) E Colon Biopsy (RECTAL POLYPS) Procedures: , Gross/Micro L4/5, H PYLORI Patient: Shefali Tillman [id number] (Continued) Specimen: [id number] Received: 04/18/24 (Continued) Pathological Diagnosis (Continued) Signed (signature on file) Naun Wheat MD 04/24/24 1118 Specimen: [id number] Received: 04/18/24 Status: CHOLO Rodriguez Num: [id number] Spec Type: Surgical Subm Dr: Ethan Burt MD Tissues: A GASTRIC FOR HP (GASTRIC BX R/O H PYLORI) B Esophagus Biopsy (ESOPHAGUS BX RO FRANK'S) C Colon Biopsy (ASCENDING COLON POLYP) D Colon Biopsy (SIGMOID POLYPS) E Colon Biopsy (RECTAL POLYPS) Procedures: /, Gross/Micro L4/5, H PYLORI Patient: Shefali Tillman [id number] (Continued) Specimen: [id number] Received: 04/18/24 (Continued) Pathological Diagnosis (Continued) B. [...] submitted in a single cassette. (1, ns, X45-1800 A) JG B. Received in formalin labeled esophagus BX is a pale byrd, focally erythematous, feathery, 0.3 cm tissue bit. The specimen is entirely submitted in a single cassette. (1, ns, B04-4054 B) JG C. Received in formalin labeled ascending colon are 7 berkowitz-byrd, focally erythematous, friable, 0.2 to 0.7 cm polypoid fragments with adherent vegetative material. The largest specimen is inked black at the apparent point of attachment, trisected, and entirely submitted in cassette C1 with the remainder of the polyps submitted in cassette C2. The vegetative material is retained. (2, ns, L68-3641 C) (more content not included)...[facility] TOMOSYNTHESIS SCREENING BIon [id number] [place] [address] Mammography Report Signed Patient: SHEFALI TILLMAN MR#: [id number] : 1970 Acct:[id number] Age/Sex: 54 / F ADM Date: 04/03/24 Loc: MAMMO Attending Dr: Eduardo Huitron D.O. Ordering Physician: Eduardo Huitron D.O. Results: Date of Service: 04/03/24 Follow Up: Procedure(s): MM tomosynthesis screening BI Accession Number(s): [id number] cc: Eduardo Huitron D.O.; KARMEN TOVAR Patient Name: SHEFALI TILLMAN MR#: [id number] : 1970 Exam Date: 04/03/2024 Ordering Doctor: DR Eduardo Huitron . RADIOLOGY REPORT PROCEDURE: MM TOMOSYNTHESIS SCREENING BI COMPARISON: MM TOMOSYNTHESIS SCREENING BI, 03/28/2023. MG MAMM SCREEN 3D SAUL CAD, 09/08/2021. MG MAMM SCREEN SAUL W CAD, 06/10/2020. MG MAMM SAUL SCRN W CAD DIG, 08/06/2013. INDICATIONS: Screening Calculator Name NCI Breast Cancer Risk Assessment Tool 5 Year Breast Cancer Risk 0.90% Lifetime Breast Cancer Risk 6.50% Personal Breast Cancer No Personal Ovarian Cancer No Treatments None Family Cancers Father with prostate cancer at age 70; Brother with colon cancer at age 50. LOCATION: [facility] BREAST COMPOSITION: The breasts are heterogeneously dense,which may obscure small masses. FINDINGS: DIAGNOSTIC CATEGORY 1--NEGATIVE. RIGHT BREAST: No significant suspicious finding. No significant change has occurred. LEFT BREAST: No significant suspicious finding. No significant change has occurred. RECOMMENDATIONS: ROUTINE MAMMOGRAM AND CLINICAL EVALUATION IN 12 MONTHS. PLEASE NOTE: A NORMAL MAMMOGRAM DOES NOT EXCLUDE THE POSSIBILITY OF BREAST CANCER. A CLINICALLY SUSPICIOUS PALPABLE LUMP SHOULD BE BIOPSIED. Dictated by: Valente Kimble M.D. on 04/06/2024 at 19:38 Approved by: Valente Kimble M.D. on 04/06/2024 at 19:40 Dictated By: Valente Kimble M.D. Signed By: 04/06/241941 DD/ 40 TD/TT: Morgue Technician:TBHRadiology, Radiologist, MD - 04/06/2024 [place] [address] Mammography Report Signed Patient: SHEFALI TILLMAN MR#: [id number] : 1970 Acct:[id number] Age/Sex: 54 / F ADM Date: 04/03/24 Loc: MAMMO Attending Dr: Eduardo Huitron D.O. Ordering Physician: Eduardo Huitron D.O. Results: Date of Service: 04/03/24 Follow Up: Procedure(s): MM tomosynthesis screening BI Accession Number(s): [id number] cc: Eduardo Huitron D.O.; KARMEN TOVAR Patient Name: SHEFALI TILLMAN MR#: [id number] : 1970 Exam Date: 04/03/2024 Ordering Doctor: DR Eduardo Huitron . RADIOLOGY REPORT PROCEDURE: MM TOMOSYNTHESIS SCREENING BI COMPARISON: MM TOMOSYNTHESIS SCREENING BI, 03/28/2023. MG MAMM SCREEN 3D SAUL CAD, 09/08/2021. MG MAMM SCREEN SAUL W CAD, 06/10/2020. MG MAMM SAUL SCRN W CAD DIG, 08/06/2013. INDICATIONS: Screening Calculator Name NCI Breast Cancer Risk Assessment Tool 5 Year Breast Cancer Risk 0.90% Lifetime Breast Cancer Risk 6.50% Personal Breast Cancer No Personal Ovarian Cancer No Treatments None Family Cancers Father with prostate cancer at age 70; Brother with colon cancer at age 50. LOCATION: [facility] BREAST COMPOSITION: The breasts are heterogeneously dense,which may obscure small masses. FINDINGS: DIAGNOSTIC CATEGORY 1--NEGATIVE. RIGHT BREAST: No significant suspicious finding. No significant change has occurred. LEFT BREAST: No significant suspicious finding. No significant change has occurred. RECOMMENDATIONS: ROUTINE MAMMOGRAM AND CLINICAL EVALUATION IN 12 MONTHS. PLEASE NOTE: A NORMAL MAMMOGRAM DOES NOT EXCLUDE THE POSSIBILITY OF BREAST CANCER. A CLINICALLY SUSPICIOUS PALPABLE LUMP SHOULD BE BIOPSIED. Dictated by: Valente Kimble M.D. on 04/06/2024 at 19:38 Approved by: Valente Kimble M.D. on 04/06/2024 at 19:40 Dictated By: Valente Kimble M.D. Signed By: 04/06/241941 DD/ 40 TD/TT: Morgue Technician: [facility] HospitalRad[facility] Study observation (narrative)[facility] TOMOSYNTHESIS SCREENING BIOrdered By: Radiologist Radiology on 33-49-8762[facility] Work Phone: aLL FOLIC ACIDon 17-46-7292XNNAND92.50 ng/mL8.60 - 58.90 ng/mLNOMS HealthcareAlbumin [Mass/volume] in Serum or Plasmaon 2024 Albumin [Mass/Vol]Albumin [Mass/volume] in Serum or Plasma2.9-4.4FThe Bellevue HospitalBasophils/100 WBC Manual cnt (Bld)on 2024 Basophils/100 WBC (Bld)Basophils/100 leukocytes in Blood by Manual countLow 0.2-2.0[facility] BeachwoodBorrelia burgdorferi IgG+IgM Ab [Presence] in Serum by Immunoassayon 2024. burgdorferi IgG+IgM IA Ql (S) Borrelia burgdorferi IgG+IgM Ab [Presence] in Serum by ImmunoassayNegative [facility] Regional Medical CenterComment on above:Lyme antibodies not detected. Reflex testing is notindicated.No laboratory evidence of infection with B. burgdorferi(Lyme disease). Negative results may occur in patientsrecently infected (less than or equal to 14 days) with B.burgdorferi. If recent infection is suspected, repeattesting on a new sample collected in 7 to 14 days isrecommended.Performed at: [place] [facility] [id number] Director: Davy Abbott PhD, Phone: [phone] VITAMIN B12on 41-72-9174Ihmzvuinu (Vitamin B12) [Mass/Vol]265.0 pg/mL193.0 - 986.0 pg/mLNOMS HealthcareCholesterol in LDL Calc [Mass/Vol]on 59-82-2709Ehxwpmqrjxf in LDL [Mass/Vol]Cholesterol in LDL [Mass/volume] in Serum or Plasma by calculation [facility], BeachwoodComment on above:<100 mg/dl CZJLVZU663-855 mg/dl NEAR OR ABOVE HLONKLT697-097 mg/dl BORDERLINE HVSY335-086 mg/dl HIGH>190 mg/dl VERY HIGHCholesterol in VLDL Calc [Mass/Vol]on 23-95-2702Fzdzkxwftuu in VLDL [Mass/Vol]Cholesterol in VLDL [Mass/volume] in Serum or Plasma by calculationSelect Medical Cleveland Clinic [facility] Hospital, BeachwoodEosinophils/100 WBC Manual cnt (Bld) on 49-29-1519Uygqhtuvftp/100 WBC (Bld)Eosinophils/100 leukocytes in Blood by Manual count0.9-7.0[facility], BeachwoodErythrocyte distribution width Auto (RBC) [Ratio]on 58-47-1521Wejvezizkyr distribution width (RBC) [Ratio]Erythrocyte distribution width [Ratio] by Automated count11.0-15.0 [facility] BeachwoodEstimated glomerular filtration rate (GFR) non- Americanon 26-30-3432BKC/1.73 sq M.predicted among non-blacks MDRD (S/P/Bld) [Vol rate/Area]Estimated glomerular filtration rate (GFR) non->=60[facility] BeachwoodGlobulin Calc (S) [Mass/Vol]on 49-99-0106Lxpxjjnb (S) [Mass/Vol]Serum globulin measurement by calculation (mass/volume)[facility] BeachwoodHematocrit Auto (Bld) [Volume fraction]on 85-74-7739Xlzjaajegh (Bld) [Volume fraction]Hematocrit [Volume Fraction] of Blood by Automated count36.0-48.0[facility] Hemoglobin [Mass/volume] in Bloodon 72-01-1871Rgxrdrmapl (Bld) [Mass/Vol] Hemoglobin [Mass/volume] in Blood12.0-16.0[facility] BeachwoodIron binding capacity [Mass/volume] in Serum or Plasmaon 71-15-8891Firt binding capacity [Mass/Vol]Iron binding capacity [Mass/volume] in Serum or Plasma 250.0-450.0[facility] BeachwoodIron saturation [Mass Fraction] in Serum or Plasmaon 54-21-1680Fhji saturation [Mass fraction]Iron saturation [Mass Fraction] in Serum or PlasmaSelect Medical Cleveland Clinic Rehabilitation Hospital, BeachwoodLaboratory - Chemistry and Chemistry - challengeon 79-09-8888Zuouonz [Mass/Vol]3.7 g/dL 3.4-5.0[facility] BeachwoodALP [Catalytic activity/Vol]92 U/L46-116 [facility] BeachwoodALT [Catalytic activity/Vol]40 U/L14-59 [facility] BeachwoodAST [Catalytic activity/Vol]24 U/L15-37 [facility] BeachwoodBilirubin [Mass/Vol]0.4 mg/dL0.2-1.0[facility] BeachwoodCalcium [Mass/Vol]9.2 mg/dL8.5-10.1FThe Bellevue HospitalChloride [Moles/Vol]102 mmol/A48-790NzqvzemqwSelect Medical Cleveland Clinic Rehabilitation Hospital, BeachwoodCholesterol [Mass/Vol]189 mg/dL<=200[facility] Cholesterol in HDL [Mass/Vol]43 mg/sP16-94FlueiizbfSelect Medical [facility] [place] Comment on above:> or =60 mg/dl - LOW CARDIOVASCULAR RISK<40 mg/dl - HIGH CARDIOVASCULAR RISKCO2 [Moles/Vol]23.5 mmol/L21.0-32.0[facility], BeachwoodCobalamin (Vitamin B12) [Mass/Vol]265.0 pg/mL193.0-986.0[facility], BeachwoodCreatinine [Mass/Vol]0.80 mg/dL0.55-1.02[facility], BeachwoodGFR/1.73 sq M.predicted MDRD (S/P/Bld) [Vol rate/Area] mL/min/{1.73_m2}>=60[facility], BeachwoodGlucose [Mass/Vol]103 mg/dL 74-106[facility], BeachwoodIron [Mass/Vol]80.0 ug/dL50.0-170.0 [facility] BeachwoodPotassium [Moles/Vol]4.2 mmol/L3.5-5.1FThe Bellevue HospitalProtein [Mass/Vol]7.6 g/dL6.4-8.2FKnox Community Hospitalodium [Moles/Vol]137 mmol/D694-722UgodyvczzSelect Medical [facility], BeachwoodTriglyceride [Mass/Vol]367 mg/dLHigh<=150[facility] TSH Qn2.047 m[IU]/L0.358-3.740[facility], BeachwoodUrea nitrogen [Mass/Vol]9.0 mg/dL7.0-18.0[facility], BeachwoodUrea nitrogen/Creatinine [Mass ratio]11.2 mg/mgSelect Medical [facility] [place] Laboratory - Hematology and Cell countson 72-71-5961Zmoresltvgx/100 WBC (Bld) 19.0 %Low20.5-60.0[facility], BeachwoodMonocytes/100 WBC (Bld)11.0 % 1.7-12.0[facility], BeachwoodLeukocytes [#/volume] corrected for nucleated erythrocytes in Blood by Automated counon 72-01-0860OEH corrected for nucl RBC Auto (Bld) [#/Vol]Leukocytes [#/volume] corrected for nucleated erythrocytes in Blood by Automated counHigh4.0-11.0[facility], BeachwoodMCH Auto (RBC) [Entitic mass]on 03-70-6940SEY (RBC) [Entitic mass]MCH [Entitic mass] by Automated count26.7-34.0[facility], BeachwoodMCHC Auto (RBC) [Mass/Vol]on 76-21-9988WDIX (RBC) [Mass/Vol]MCHC [Mass/volume] by Automated count29.9-35.2FThe Bellevue HospitalMCV Auto (RBC) [Entitic vol]on 41-75-2480KYJ (RBC) [Entitic vol]MCV [Entitic volume] by Automated count 81.0-99.0[facility], BeachwoodNo Panel Informationon 2024 CLINISYNCNOMS Uyvbelgbtx78-Fgfokcy Vitamin D Total78.1 ng/mLSelect Medical [facility] Clinic Rehabilitation Hospital, BeachwoodComment on above:<20 ng/mL Vit D iqgcifjli37-<30 ng/mL Vit D ucvstnzrmezv35-719 ng/mL Vit D sufficient>100 ng/mL Potential ToxicityAbsolute Basophils (Manual)0.00 10 3/uL0.00-0.10[facility] Eosinophils # (Manual)0.63 10 3/uL0.00-0.70[facility] Atipwr59.50 ng/mL8.60-58.90[facility], BeachwoodLymphocytes # (Manual)2.39 10 3/uL1.20-3.80[facility], BeachwoodMonocytes # (Manual)1.38 10 3/uLHigh0.30-0.80[facility] BeachwoodProtein Electrophoresis M-SpikeNot Observed g/dLNot ObservedSelect Medical Cleveland Clinic [facility], BeachwoodProtein Electrophoresis NoteComment.[facility] Comment on above:Protein electrophoresis scan will follow via computer,mail, or utility bill collection clerk delivery.Performed at: [place] [id number] Director: Davy Abbott PhD, Phone: [phone] Lymphocytes0.50[facility], BeachwoodReactive Lymphocytes4.0 % [facility] Medical Centeregmented Neutrophils # (Manual)7.68 10 3/uL High1.4-6.5FThe Bellevue HospitalPlatelet mean volume Auto (Bld) [Entitic vol]on 95-17-6272Bdijfumq mean volume (Bld) [Entitic vol]Platelet mean volume [Entitic volume] in Blood by Automated count9.5-13.5FThe Bellevue HospitalPlatelets Auto (Bld) [#/Vol]on 34-08-4495Yzlirsfnj (Bld) [#/Vol] Platelets [#/volume] in Blood by Automated vxlus508-874QyinludlaSelect Medical Cleveland Clinic Rehabilitation Hospital, BeachwoodProtein [Mass/volume] in Serum or Plasmaon 66-42-8698Hfbjexd [Mass/Vol]Protein [Mass/volume] in Serum or Plasma6.0-8.5FThe Bellevue HospitalRBC Auto (Bld) [#/Vol]on 77-83-4859IJA (Bld) [#/Vol]Erythrocytes [#/volume] in Blood by Automated count4.20-5.40[facility] Segmented neutrophils/100 WBC Manual cnt (Bld)on 87-85-5807Yxkgjoabh neutrophils/100 WBC (Bld)Manual blood segmented neutrophils/100 leukocytes 43.0-75.0[facility] Medical Centererum globulin measurement (mass/volume)on 31-35-0861Jrijzbqo (S) [Mass/Vol]Serum globulin measurement (mass/volume)2.2-3.9[facility] Medical Centererum or plasma albumin/globulin mass ratioon 45-51-2935Nivdkov/Globulin [Mass ratio]Serum or plasma albumin/globulin mass ratio0.7-1.7FKnox Community Hospitalerum or plasma alpha 1 globulin measurement by electrophoresis (mass/volume)on 84-16-7247Fxmtm 1 globulin Elph [Mass/Vol]Serum or plasma alpha 1 globulin measurement by electrophoresis (mass/volume)0.0-0.4FKnox Community Hospitalerum or plasma alpha 2 globulin measurement by electrophoresis (mass/volume)on 74-27-3243Jumox 2 globulin Elph [Mass/Vol]Serum or plasma alpha 2 globulin measurement by electrophoresis (mass/volume)0.4-1.0[facility] Medical Centererum or plasma anion gap determinationon 98-81-5914Amtfo gap [Moles/Vol]Serum or plasma anion gap determinationAdena Pike Medical Centererum or plasma beta globulin measurement by electrophoresis (mass/volume) on 11-85-7644Tpdj globulin Elph [Mass/Vol]Serum or plasma beta globulin measurement by electrophoresis (mass/volume)0.7-1.3FKnox Community Hospitalerum or plasma gamma globulin measurement by electrophoresis (mass/volume)on 66-21-2833Hxjan globulin Elph [Mass/Vol]Serum or plasma gamma globulin measurement by electrophoresis (mass/volume)0.4-1.8[facility] Medical Centererum or plasma total cholesterol/high density lipoprotein (HDL) cholesterol mass mildred 29-02-5545Fgqbudlvznv.total/Cholesterol in HDL [Mass ratio]Serum or plasma total cholesterol/high density lipoprotein (HDL) cholesterol mass Berger HospitalComment on above:3.3 - 4.4 LOW RISK4.4 - 7.1 AVERAGE RISK7.1 - 11.0 MODERATE RISK>11.0 HIGH RISKCardiac stress study Procedureon 11-21-[address], [address], [place] [address] Exercise Stress Test Patient Name: SHEFALI TILLMAN Ordering Provider: [id number] ELFEGO MCLEAN Study Date: 11/21/2023 Reading Physician: [id number] Deuce Hall MD, [facility] MRN/PID: [id number] Supervising Physician: [id number] Elfego Hernandez MD Fellow: Date of /Age: 8 1970 / 53 years Fellow: Gender: F Nurse: Zuleyma Bell RN Admission Status: Instructor [employer]: NA Height: 162.56 cm Technologist: Weight: 76.20 kg Additional Staff: BSA: 1.82 m2 BMI: 28.84 kg/m2 Patient Location: Study Type: STRESS TEST ONLY Diagnosis/ICD: Atherosclerotic heart disease-I25.10 Indication: Chest Pain CPT Codes: Stress Test Interpretation-49911; Stress Test Supervision-02924 Falls Risk: Low: Patient has low risk [...] favorable. 2. Adequate level of stress achieved. 10163 Deuce Hall MD, [facility] Electronically signed on 11/21/2023 at 4:57:24 PM Final Deuce Reyna MD - 11/21/[address], [place] [address] Exercise Stress Test Patient Name: SHEFALI TILLMAN Ordering Provider: [id number] ELFEGO MCLEAN Study Date: 11/21/2023 Reading Physician: [id number] Deuce Hall MD, [facility] MRN/PID: [id number] Supervising Physician: [id number] Elfego Hernandez MD Fellow: Date of /Age: 8 1970 / 53 years Fellow: Gender: F Nurse: Zuleyma Bell RN Admission Status: Instructor [employer]: MANINDER Height: 162.56 cm Technologist: Weight: 76.20 kg Additional Staff: BSA: 1.82 m2 BMI: 28.84 kg/m2 Patient Location: Study Type: STRESS TEST ONLY Diagnosis/ICD: Atherosclerotic heart disease-I25.10 Indication: Chest Pain CPT Codes: Stress Test Interpretation-16060; Stress Test Supervision-92807 Falls Risk: Low: Patient has low risk [...] favorable. 2. Adequate level of stress achieved. [id number] Deuce Hall MD, [facility] Electronically signed on 11/21/2023 at 4:57:24 PM Final [facility] Work Phone: Cardiac stress study ProcedureOrdered By: Deuce Hall on 13-92-9167KymuaufldwDayton Children's Hospital Work Phone: STRESS TEST ONLYon 11-05-6833UNBMJT TEST [place] [address] Exercise Stress Test Patient Name: SHEFALI TILLMAN Ordering Provider: [id number] ELFEGO MCLEAN Study Date: 11/21/2023 Reading Physician: [id number] Deuce Hall MD, [facility] MRN/PID: [id number] Supervising Physician: [id number] Elfego Hernandez MD Fellow: Date of /Age: 8 1970 / 53 years Fellow: Gender: F Nurse: Zuleyma Bell RN Admission Status: Instructor [employer]: MANINDER Height: 162.56 cm Technologist: Weight: 76.20 kg Additional Staff: BSA: 1.82 m2 BMI: 28.84 kg/m2 Patient Location: Study Type: STRESS TEST ONLY Diagnosis/ICD: Atherosclerotic heart disease-I25.10 Indication: Chest Pain CPT Codes: Stress Test Interpretation-41318; Stress Test Supervision-12783 Falls Risk: Low: Patient has low risk [...] favorable. 2. Adequate level of stress achieved. [id number] Deuce Hall MD, [facility] Electronically signed on 11/21/2023 at 4:57:24 PM Final [facility] SystemCOVID Quick Testingon 86-97-9537UebljvAnfrukpiLqaon SocialDiabetes Other Urinalysis - AUTOMATEDon 81-39-8804Jdmhkwhaqd (U)clear Quotefish Other Bilirubin Ql (U)NegativeQuotefish Other Color (U)light yellowLocalGuiding Other Glucose Ql (U)NegativeQuotefish Other Hemoglobin Ql (U)TRACE-INTACTQuotefish Other Ketones Ql (U)US [employer] Other Leukocyte esterase Test strip Ql (U)US [employer] Other Nitrite Ql (U)US [employer] Other pH (U)7.0 [pH]Quotefish Other Protein Ql (U)NegativeNort SocialDiabetes Other Specific gravity (U) [Rel density]1.010Nort SocialDiabetes Other Urobilinogen (U) [Mass/Vol]0.2 mg/dLLocalGuiding Other Urinalysis - AUTOMATEDNoLocalGuiding Other DAT COVID-19 ANTIGENon 68-31-4963NLZ StatementSEE [facility]cy Health St. Charles HospitalComment on above:Result Comment: This test has [...] is revoked sooner.Performed By: #### DATCVAG #### [facility] [address] [place] [address] Dr. Alley Gagnon-CoV-2 (COVID-19) RNA SCOTTY+probe Ql (Unsp spec)NegativeNormal NEGATIVEParma Community General HospitalComment on above:Performed By: #### DATCVAG #### [facility] [address] [place], [place] [address] Dr. Alley OchoaCholesterol [Mass/volume] in Serum or PlasmaOrdered By: Shari Kang on 13-23-7221Llvufpvlakk [Mass/Vol]151 mg/pA863-362KomcqnthySelect Medical Cleveland Clinic Rehabilitation Hospital, BeachwoodComment on above:Chol less than 200 mg/dl low riskChol 201-239 mg/dl borderline riskChol 240 mg/dl and greater high riskCholesterol in LDL Calc [Mass/Vol]Ordered By: Shari Kang on 95-90-6433Nawcyszdstl in LDL [Mass/Vol] 77 mg/dL0-100[facility], BeachwoodComment on above:LDL ATP III CLASSIFICATIONLDL less than 100 mg/dL OptimalLDL 100-129 mg/dL Near or above vuxgcxaLWR663-351 mg/dL Borderline highLDL 160-189 mg/dL HighLDL greater than 189 mg/dL Very highCholesterol in VLDL Calc [Mass/Vol]Ordered By: Shari Kang on 27-30-0154Thvibyuetnf in VLDL [Mass/Vol]34 mg/dLSelect Medical Cleveland Clinic Rehabilitation Hospital, BeachwoodFolate [Mass/volume] in Serum or PlasmaOrdered By: Patricia Ch on 36-71-5189Wwwngs [Mass/Vol]21.0 ng/mL>5.9[facility] [place] Comment on above:Folate reference range: >5.9 ng/mlThe WHO technical consultation on folate and vitamin x10btqgyuetfuyf has determined that folate concentrations lessthan 4 ng/ml are considered deficient.Glucose mean value [Mass/volume] in Blood Estimated from glycated hemoglobinOrdered By: Shari Kang on 73-05-0457Fkuyoht glucose Estimated from glycated hemoglobin (Bld) [Mass/Vol]120 mg/dLSelect Medical Cleveland Clinic Rehabilitation Hospital, BeachwoodHemoglobin A1c percentage Ordered By: Shari Kang on 90-48-8442SxB6d (Bld) [Mass fraction]5.8 %4.3-5.6 [facility], BeachwoodComment on above:Increased risk for diabetes: 5.7 - 6.4diabetes: >6.4glycemic control for adults with diabetes: <7.0 Laboratory - Chemistry and Chemistry - challengeOrdered By: Patricia Ch on 27-45-7350Pnzibowqe (Vitamin B12) [Mass/Vol]195 pg/dD733-611VfshnfkmcAdena Pike Medical Centererum or plasma high density lipoprotein (HDL) cholesterol measurementOrdered By: Shari Kang on 19-94-6208Xvfyuzvwpfy in HDL [Mass/Vol] 40 mg/qG00-38FpomdddjlSelect Medical Cleveland Clinic Rehabilitation Hospital, BeachwoodComment on above:HDL CHOL ATP-III CLASSIFICATION Cardiovascular RiskHDL > or equal to 60 mg/dL LOWHDL < 40 mg/dL HIGHSerum or plasma total cholesterol/high density lipoprotein (HDL) cholesterol mass ratOrdered By: Shari Kang on 48-49-3191Kzkrypzxwtt.total/Cholesterol in HDL [Mass ratio]3.8 {ratio}<5.0[facility] DL <= 0.005 mIU/L QnOrdered By: Patricia Ch on 60-48-4049CZA Qn1.84 m[IU]/L0.45-5.33 [facility], BeachwoodTriglyceride [Mass/volume] in Serum or Plasma Ordered By: Shari Kang on 88-67-5676Rgtcmobqezzo [Mass/Vol]170 mg/fC67-516 [facility], BeachwoodComment on above:TRIG ATP III CLASSIFICATIONTRIG less than 150 mg/dL NormalTRIG 150-199 mg/dL Borderline highTRIG 200-500 mg/dL High TRIG greater than 500 mg/dL Very highStandard traceable to the Center for Disease Conrtrol and Prevention (CDC) test method. Activated partial thromboplastin time (aPTT) in platelet poor plasma by coagulation aOrdered By: Edward Christian on 70-85-1672bKGM Coag (PPP) [Time]29.4 s 25.1-36.5FThe Bellevue HospitalAutomated erythrocytes count in urine sediment (number/area)Ordered By: Edward Christian on 91-52-6749NKJ Auto (Urine sed) [#/Area]3-4 [HPF]0-4FThe Bellevue HospitalAutomated leukocytes count in urine sediment (number/area)Ordered By: Edward Christian on 86-42-4965XKK Auto (Urine sed) [#/Area]5-9 [HPF]0-4FThe Bellevue HospitalBasophils Auto (Bld) [#/Vol]Ordered By: Edward Christian on 91-25-3599Iegepymyy (Bld) [#/Vol]0.1 10*3/uL0.0-0.2FThe Bellevue HospitalBasophils/100 WBC Auto (Bld) Ordered By: Edward Christian on 67-61-5276Hvmdbcawr/100 WBC (Bld)0.8 %.[facility], BeachwoodBilirubin Test strip Ql (U)Ordered By: Edward Christian on 90-02-4704Zyxzqumeq Ql (U)NegativeNegativeSelect Medical Cleveland Clinic Rehabilitation Hospital, BeachwoodColor Auto (U)Ordered By: Edward Christian on 72-89-3629Zossa (U)YellowYellowSelect Medical Cleveland Clinic Rehabilitation Hospital, BeachwoodCreatine kinase [Enzymatic activity/volume] in Serum or PlasmaOrdered By: Edward Christian on 46-55-8512FG [Catalytic activity/Vol]140 U/L [facility], BeachwoodCreatinine (Bld) [Mass/Vol]Ordered By: Shari Kang on 88-98-1033Jsbcgklbgf [Mass/Vol]0.9 mg/dL0.6-1.3FThe Bellevue HospitalComment on above:ER/ESD physician is notified/shown all ISTAT results.Critical values may be confirmed by laboratorytesting ifdeemed necessary by ER attending doctor.Creatinine and Glomerular filtration rate.predicted panel (S/P/Bld)Ordered By: Edward Christian on 00-85-7292Dwaisspble [Mass/Vol]0.87 mg/dL0.44-1.03[facility], BeachwoodEosinophils Auto (Bld) [#/Vol]Ordered By: Edward Christian on 72-66-4021Etempgmjjyx (Bld) [#/Vol]0.7 10*3/uL0.0-0.45[facility], BeachwoodEosinophils/100 WBC Auto (Bld) Ordered By: Edward Christian on 93-95-2675Pwoimoharil/100 WBC (Bld)6.4 %.[facility], BeachwoodErythrocyte distribution width Auto (RBC) [Ratio]Ordered By: Edward Christian on 14-98-6794Lqcjmilmtbm distribution width (RBC) [Ratio]13.6 % 11.9-15.3FThe Bellevue HospitalEstimated glomerular filtration rate (GFR) non- AmericanOrdered By: Edward Christian on 86-51-6061DOE/1.73 sq M.predicted among non-blacks MDRD (S/P/Bld) [Vol rate/Area]> 60 mL/MinSelect Medical Cleveland Clinic Rehabilitation Hospital, BeachwoodGlucose Glucometer (BldC) [Mass/Vol]Ordered By: Edward Christian on 95-68-7543Eixjvlj [Mass/Vol]140 mg/dLSelect Medical Cleveland Clinic Rehabilitation Hospital, [place] Comment on above:Random Glucose Reference Range is dependent on time and content of last meal. Glucose of more than 200 mg/dL in a nonstressed, ambulatory subject supports the diagnosis of Diabetes Mellitus.Hematocrit Auto (Bld) [Volume fraction]Ordered By: Edward Christian on 69-50-3605Pxrtjwrixx (Bld) [Volume fraction]46.6 %34.0-46.4FThe Bellevue HospitalHemoglobin [Mass/volume] in BloodOrdered By: Edward Christian on 58-38-3459Jjuyyycctt (Bld) [Mass/Vol]15.9 g/dL11.8-15.4FThe Bellevue HospitalKetones Auto test strip (U) [Mass/Vol]Ordered By: Edward Christian on 73-05-4626Jgmwmlm (U) [Mass/Vol] NegativeNegativeSelect Medical Cleveland Clinic Rehabilitation Hospital, BeachwoodLaboratory - CoagulationOrdered By: Edward Christian on 32-17-3162WP Coag (PPP) [Time]10.8 s9.0-12.9[facility], BeachwoodLaboratory - UrinalysisOrdered By: Edward Christian on 64-09-3571Olydodx casts LM Ql (Urine sed)0-8 [LPF]0-8[facility], BeachwoodLeukocytes [#/volume] corrected for nucleated erythrocytes in Blood by Automated counOrdered By: Edward Christian on 84-14-9307FEC corrected for nucl RBC Auto (Bld) [#/Vol]10.8 10*3/uL3.8-11.6FThe Bellevue Hospital Lymphocytes Auto (Bld) [#/Vol]Ordered By: Edward Christian on 18-87-8383Olcamqhejzs (Bld) [#/Vol]3.3 10*3/uL1.00-4.8[facility], BeachwoodLymphocytes/100 WBC Auto (Bld)Ordered By: Edward Christian on 62-45-8991Ggxpqrxdnty/100 WBC (Bld) 30.5 %.[facility], BeachwoodMCH Auto (RBC) [Entitic mass]Ordered By: Edward Christian on 31-10-9859GZQ (RBC) [Entitic mass]31.6 pg24.7-34.3FThe Bellevue HospitalMCHC Auto (RBC) [Mass/Vol]Ordered By: Edward Christian on 81-25-2101YCKG (RBC) [Mass/Vol]34.2 g/dL32.0-35.0[facility], BeachwoodMCV Auto (RBC) [Entitic vol]Ordered By: Edward Christian on 05-40-5780LFM (RBC) [Entitic vol]92.3 yT91-753JyrmdhifuSelect Medical Cleveland Clinic Rehabilitation Hospital, BeachwoodMonocyte distribution width [Entitic volume] in Blood by AutomatedOrdered By: Edward Christian on 73-38-3930Gtabavye distribution width Auto (Bld) [Entitic vol]18.05 % 0.00-20.00[facility], BeachwoodMonocytes Auto (Bld) [#/Vol]Ordered By: Edward Christian on 01-87-3689Pqgzjzihv (Bld) [#/Vol]1.5 10*3/uL0.0-0.8[facility], BeachwoodMonocytes/100 WBC Auto (Bld)Ordered By: Edward Christian on 96-11-7346Alwtavgpv/100 WBC (Bld)14.0 %.[facility] [place] Neutrophils Auto (Bld) [#/Vol]Ordered By: Edward Christian on 20-83-7868Oufjxbuwvrl (Bld) [#/Vol]5.2 10*3/uL1.8-7.7FThe Bellevue HospitalNeutrophils/100 WBC Auto (Bld)Ordered By: Edward Christian on 61-33-0101Rhdbnhvlnhf/100 WBC (Bld) 48.3 %.[facility], BeachwoodNitrite Test strip Ql (U)Ordered By: Edward Christian on 86-18-8637Yzxbizl Ql (U)NegativeNegativeSelect Medical Cleveland Clinic Rehabilitation Hospital, BeachwoodNo Panel InformationOrdered By: Shari Kang on 02-65-8049AAC Estimated GFR > 60[facility], BeachwoodComment on above:GFR estimated reference range: According to KDOQI guidelines, <60 ml/min/1.73m2 is sufficient todiagnose a patient with chronic kidney disease.POC Estimated GFR Non- Amer> 60[facility], BeachwoodNo Panel InformationOrdered By: Edward Christian on 14-53-3317Tunehuyzj GFR ()> 60 mL/MinSelect Medical Cleveland Clinic Rehabilitation Hospital, BeachwoodComment on above:GFR estimated reference range: According to KDOQI guidelines, <60 ml/min/1.73m2 is sufficient todiagnose a patient with chronic kidney disease.Pharmacy Creatinine Clearance (Chem83.99[facility] Glucose #2 Comment Cleaned meterMetroHealth Parma Medical Center Glucose CommentSee comment [facility], BeachwoodComment on above:Glu2: WILL NOTIFY DR/RN Nucleated erythrocytes [Presence] in Blood by Automated countOrdered By: Edward Christian on 99-79-8905Droynubba RBC Auto Ql (Bld)0.2 /100{WBC}0-0.5FThe Bellevue HospitalPlatelet mean volume Auto (Bld) [Entitic vol]Ordered By: Edward Christian on 39-78-2329Cgjyxaxd mean volume (Bld) [Entitic vol]8.4 fL6.3-10.7 [facility], BeachwoodPlatelet poor plasma international normalized ratio (INR) by coagulation assay (relatOrdered By: Edward Christian on 86-85-4568UND Coag (PPP) [Relative time]0.9 {INR}[facility], BeachwoodComment on above:INR Therapeutic Range A) Pre- and [...] Auto (Bld) [#/Vol]Ordered By: Edward Christian on 22-99-5847Xvfplhrng (Bld) [#/Vol]302 10*3/xF790-537JknerqfmvSelect Medical Cleveland Clinic Rehabilitation Hospital, BeachwoodProtein Auto test strip (U) [Mass/Vol]Ordered By: Edward Christian on 26-09-8700Dezvryc (U) [Mass/Vol]NegativeNegativeSelect Medical Cleveland Clinic Rehabilitation Hospital, BeachwoodRBC Auto (Bld) [#/Vol]Ordered By: Edward Christian on 96-61-1704OTP (Bld) [#/Vol]5.04 10*6/uL3.60-5.00Adena Pike Medical Centererum or plasma anion gap determinationOrdered By: Edward Christian on 73-75-6812Wymqa gap [Moles/Vol]17.0 mmol/L6.0-15.0A[facility] Medical Centererum or plasma calcium measurement (mass/volume)Ordered By: Edward Christian on 86-49-3138Rvqewpp [Mass/Vol]9.3 mg/dL8.2-10.2FKnox Community Hospitalerum or plasma chloride measurement (moles/volume)Ordered By: Edward Christian on 07-02-2022 Chloride [Moles/Vol]98 mmol/E88-417RkffjjpqrAdena Pike Medical Centererum or plasma creatine kinase MB (CKMB)/total creatine kinase (CK) ratio by calcula Ordered By: Edward Christian on 75-76-7874MJ.MB Calc [Catalytic fraction]1.3 % 0.00-2.50A[facility] Medical Centererum or plasma creatine kinase MB measurement (mass/volume)Ordered By: Edward Christian 80-22-7162VX.MB [Mass/Vol] 1.9 ng/mL0.6-6.3FKnox Community Hospitalerum or plasma glucose measurement (mass/volume)Ordered By: Edward Christian on 06-23-6982Zrnqvxc [Mass/Vol]111 mg/yI09-144OymwnqoyrSelect Medical Cleveland Clinic Rehabilitation Hospital, BeachwoodComment on above:ADA recommended reference rangeRandom Glucose Reference Range is dependent on time and content of last meal. Glucose of more than 200 mg/dL in a nonstressed, ambulatory subject supports the diagnosisof Diabetes Mellitus.Serum or plasma potassium measurement (moles/volume)Ordered By: Edward Christian on 07-02-2022 Potassium [Moles/Vol]3.7 mmol/L3.5-5.1FKnox Community Hospitalerum or plasma sodium measurement (moles/volume)Ordered By: Edward Christian on 07-02-2022 Sodium [Moles/Vol]135 mmol/F976-132VnfpuaatqAdena Pike Medical Centererum or plasma total carbon dioxide measurement (moles/volume)Ordered By: Edward Christian on 94-16-9169MK4 [Moles/Vol]23.7 mmol/L22.0-30.0[facility] Medical Centererum or plasma urea nitrogen measurement (mass/volume)Ordered By: Edward Christian on 02-73-9497Egrf nitrogen [Mass/Vol]10 mg/dL9-Adena Pike Medical Centerpecific gravity Auto test strip (U) [Rel density]Ordered By: Edward Christian on 37-81-5494Xurwnizr gravity (U) [Rel density]1.0031.001-1.030 [facility]ike Medical Centerquamous epithelial cells detection in urine sediment by light microscopyOrdered By: Edward Christian on 41-15-5612Doihsfjgus cells.squamous LM Ql (Urine sed)1-2 [HPF]0-2FThe Bellevue Hospital Troponin I.cardiac [Mass/volume] in Serum or Plasma by High sensitivity method Ordered By: Edward Christian on 15-57-1293Rvvilrva I.cardiac High sensitivity method [Mass/Vol]4 pg/mL0-15[facility], BeachwoodUrine bacteria detection by automated methodOrdered By: Edward Christian on 06-45-8427Ygcwvspu Auto Ql (U) None seenNone SeenSelect Medical Cleveland Clinic Rehabilitation Hospital, BeachwoodUrine clarity by refractometry automatedOrdered By: Edward Christian 24-73-7468Lfvkikq Refractometry automated (U)ClearCleAvita Health System Galion HospitalUrine culture routineOrdered By: Edward Christian on 79-44-0248Chgegoez identified Cx Nom (U)2 DaysSelect Medical Cleveland Clinic Rehabilitation Hospital, BeachwoodUrine glucose measurement by automated test strip (mass/volume)Ordered By: Edward Christian on 37-32-7544Egtayku Auto test strip (U) [Mass/Vol]Normal mg/dLNormalSelect Medical Cleveland Clinic Rehabilitation Hospital, BeachwoodUrine hemoglobin detection by automated test stripOrdered By: Edward Christian on 87-22-0292Eixxnxbgbf Auto test strip Ql (U)NegativeNegativeSelect Medical Cleveland Clinic Rehabilitation Hospital, BeachwoodUrine leukocyte esterase detection by automated test stripOrdered By: Edward Christian on 39-93-8020Aejawhxic esterase Auto test strip Ql (U)1+ NegativeSelect Medical Cleveland Clinic Rehabilitation Hospital, BeachwoodUrobilinogen Auto test strip (U) [Mass/Vol]Ordered By: Edward Christian on 61-12-5583Fgayxltvgayz (U) [Mass/Vol] Normal mg/dLNormKeenan Private HospitalWBC Auto (Bld) [#/Vol]Ordered By: Edward Christian on 19-44-3258BGG (Bld) [#/Vol]10.8 10*3/uL3.8-11.6FThe Bellevue HospitalpH Auto test strip (U)Ordered By: Edward Christian on 82-10-8684tF (U)5.5 [pH]5.0-9.0[facility], BeachwoodPhysician Referralon 36-35-5183Vkosvevfq Referral [id number]#1.00CD:127[facility] HospitalPAP ACOG PANEL 2: 21 to 29on 04-28-2022..NormalParma Community General Hospital Comment on above:Result Comment: Performed at: WBPerformed By: #### [id number] #### [facility] [address] [place] [address] Dr. Alley Rodriguez Gdln ACOG Wrxediz49-00CcyttbIgeFayette County Memorial HospitalComment on above:Performed By: #### [id number] #### [facility] [address] [place] [address] [address] Alley OchoaDIAGNOSIS:CommentAbTogus VA Medical CenterComment on above: Result Comment: EPITHELIAL CELL ABNORMALITY. LOW GRADE SQUAMOUS INTRAEPITHELIAL LESION (LSIL). Performed at: WBPerformed By: #### [id number] #### [facility] [address] [address] [address] Hager ChangElectronically signed by:CommentTuscarawas Hospital Comment on above:Result Comment: Connie Padgett MD, Pathologist Performed at: WBPerformed By: #### [id number] #### [facility] [address] [place] [address] Dr. Alley OchoaHPV AptimaPositiveAbnormalNegativeParma Community General HospitalComment on above:Result Comment: This nucleic acid amplification test detects fourteen high-risk HPV types (16,18,31,33,35,39,45,51,52,56,58,59,66,68) without differentiation. Performed at: =GPerformed By: #### [id number] #### [facility] [address] [place] [address] Dr. Alley OchoaHPV Genotype ReflexComSelect Medical Specialty Hospital [facility] on above:Result Comment: Criteria not met, HPV Genotype not performed. Performed at: WBPerformed By: #### [id number] #### [facility] [address] [place] [address] Dr. Alley OchoaMethodology:CommentFlower Hospital on above: Result Comment: This liquid based ThinPrep(R) pap test was screened with the use of an image guided system. Performed at: WBPerformed By: #### [id number] #### [facility] [address] [place] [address] Dr. Alley OchoaNote:CommentFlower Hospital on above:Result Comment: The Pap smear is a screening test designed to aid in the detection of premalignant and malignant conditions of the uterine cervix. It is not a diagnostic procedure and should not be used as the sole means of detecting cervical cancer. Both false-positive and false-negative reports do occur. . Performed at: WBPerformed By: #### [id number] #### [facility] [address] [place] [address] Dr. Alley OchoaPathologist Provided ITY59TfisassSeotzlZljAvita Health System [facility] Comment on above:Result Comment: [id number] Performed at: WBPerformed By: #### [id number] #### [facility] [address] [place] [address] Dr. Alley OchoaPerformed by:CommentFlower Hospital on above: Result Comment: Demi Pelaez, Employee Benefits Insurance Agent Performed at: WBPerformed By: #### [id number] #### [facility] [address] [place] [address] Dr. Alley OchoaSpecimen adequacy:CommentFlower Hospital on above:Result Comment: Satisfactory for evaluation. No endocervical component is identified. Performed at: WBPerformed By: #### [id number] #### [facility] [address] [place] [address] Dr. Alley OchoaCOVID/FLU RT-PCRon 44-25-6357FCFA-CoV-2 (COVID-19) RNA SCOTTY+probe Ql (Unsp spec)NegativeLocalGuiding Other COVID/FLU RT-PCRNegativeWest [place] SocialDiabetes Other Quick Strepon 04-14-2022. pyogenes Org specific cx Ql (Throat)NegativeLocalGuiding Other quick StrepQuotefish Other Cardiac Stress Teston 57-27-0339Thfozbn Stress Test [address], Suite [facility], [place] [address] Exercise Stress Test Patient Name: SHEFALI Ordering Physician: [id number] Jerome Pelaez NP MOJAVE Study Date: 02/22/2022 Reading Physician: [id number] Rosio Riojas MD MRN/PID: [id number] Supervising Physician: Jorge A Riojas MD Accession/Order#: [id number] Referring Physician: JEROME PELAEZ Date of : 1970 PCP: Osiel Pettit MD Gender: F Fellow: Height: 162.56 cm Nurse: Zuleyma Bell RN Weight: 74.84 kg 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 [id number] Rosio Riojas MD Electronically signed on 02/22/2022 at 4:37:00 PM Final NormalPenrose HospitalOffice Visit (Cardiology)on 41-07-7007Ylgwtz-up visitDiagnoses/Problems Assessed Atherosclerosis of coronary artery of [place] heart without angina pectoris (414.01) (I25.10) Jun [...] health. Orders Atherosclerosis of coronary artery of [place] heart without angina pectoris Start: Furosemide 20 MG Oral Tablet; Take one tablet daily as needed Cardiac Stress Test; Status:Hold For - Scheduling; Requested for:01Feb2022; BMI 28.0-28.9,adult Healthy Weight Tips; Status:Complete; Done: 01Feb2022 SocHx: Current every day smoker Tobacco Use Screening; Status:Complete; Done: 01Feb2022 Tobacco Use Screening; Status:Complete; Done: 01Feb2022 Patient Instructions Please bring all medicines, vitamins, [...] sh (more content not included)...NormalUH TouchworksTobacco Screening.on 02-55-9556Silpe depression screening assessmentNoUniversity of [facility] Center [employer]rooms 250 DO Work Phone: Tobacco use status CPHSa) YesUniversity of Washington Medical Center [employer] 250 DO Work Phone: Tobacco Screening.YesUniversity of Washington Medical Center Desi [place] 250 DO Work Phone: CB AUTO DIFFon 16-53-4041ZJBU #0.1 103/ulNormal 0.0-0.1[facility] HospitalComment on above:Performed By: #### CBC #### [facility] [address] [address] [address] Alley OchoaBasophils/100 WBC (Bld)0.6 %Normal0.2-2.0[facility] Comment on above:Performed By: #### CBC #### [facility] [address] [place] [address] Dr. Alley Springer #0.5 103/ulNormal0.0-0.7The [facility] Health SystemComment on above: Performed By: #### CBC #### [facility] [address] [place] [address] Dr. Alley Armandoosinophils/100 WBC (Bld)4.5 %Normal0.9-7.0[facility] Comment on above:Performed By: #### CBC #### [facility] [address] [place] [address] Dr. Alley Armandorythrocyte distribution width (RBC) [Ratio]13.2 %Cxngek46.0-15.0 The [facility] Health SystemComment on above:Performed By: #### CBC #### [facility] [address] [place] [address] Dr. Alley OchoaHematocrit (Bld) [Volume fraction]47.2 %Uqwjsv53.0-48.0The [facility] Health SystemComment on above:Performed By: #### CBC #### [facility] [address] [place] [address] Dr. Alley OchoaHemoglobin (Bld) [Mass/Vol]15.9 g/wFAlogre17.0-16.0The [facility] SystemComment on above:Performed By: #### CBC #### [facility] [address] [place] [address] Dr. Alley Tobar #0.06 10e3/ulCritically high0.00-0.03[facility] Comment on above:Performed By: #### CBC #### [facility] [address] [place] [address] Dr. Alley Tobar %0.5 %Normal0.0-0.5The [facility] Health SystemComment on above: Performed By: #### CBC #### [facility] Laboratory [address] [place] [address] Dr. Alley Shultz #2.0 103/ulNormal1.2-3.8The [facility] SystemComment on above:Performed By: #### CBC #### [facility] [address] [place] [address] Dr. Alley Barrerahocytes/100 WBC (Bld)17.8 %Critically low20.5-60.0The [facility] Health SystemComment on above:Performed By: #### CBC #### [facility] [address] [place] [address] Dr. Alley Longoria DIFF REQNONormalThe Trinity Health SystemComment on above: Performed By: #### CBC #### [facility] [address] [place] [address] Dr. Alley Ruiz (RBC) [Entitic mass]31.2 jaRrwcfq75.7-34.0The [facility] Health SystemComment on above:Performed By: #### CBC #### [facility] [address] [place] [address] Dr. Alley Ruiz (RBC) [Mass/Vol]33.7 g/jGIxlfdn52.9-35.2The [facility] Health SystemComment on above:Performed By: #### CBC #### [facility] [address] [place] [address] Dr. Alley Ruiz (RBC) [Entitic vol]92.5 iDWlnwii62.0-99.0The [facility] SystemComment on above:Performed By: #### CBC #### [facility] [address] [place] [address] Dr. Alley Hughes #1.3 103/ulCritically high0.3-0.8[facility] Comment on above:Performed By: #### CBC #### [facility] [address] [place] [address] Dr. Alley Godinezocytes/100 WBC (Bld)11.5 %Normal1.7-12.0[facility] Comment on above:Performed By: #### CBC #### [facility] [address] [place] [address] Dr. Alley Larose #7.2 103/ulCritically high1.4-6.5The [facility] Comment on above:Performed By: #### CBC #### [facility] [address] [place] [address] Dr. Alley Cadenautrophils/100 WBC (Bld)65.1 %Gdphby05.0-75.0The [facility] Health SystemComment on above:Performed By: #### CBC #### [facility] [address] [place] [address] Dr. Alley OchoaPlatelet mean volume (Bld) [Entitic vol]10.0 fLNormal9.5-13.5The [facility] Health SystemComment on above:Performed By: #### CBC #### [facility] [address] [place] [address] Dr. Alley OchoaPLT273 103/udElmzpy746-984Jsf [facility] SystemComment on above: Performed By: #### CBC #### [facility] [address] [place] [address] Dr. Alley OchoaRBC5.10 106/ulNormal4.20-5.40The [facility] Health SystemComment on above:Performed By: #### CBC #### [facility] [address] [place] [address] Dr. Alley OchoaWBC11.0 103/ulNormal4.0-11.0The [facility] Health SystemComment on above:Performed By: #### CBC #### [facility] [address] [place] [address] Dr. Alley OchoaGLYCOHEMOGLOBIN A1Con [id number] RECOMMENDATIONSEE BELOWNormal [facility] HospitalComment on above:Result Comment: ADA RECOMMENDED LIMIT 4.0 - 6.0 ADA THERAPEUTIC TARGET < 7.0 ACTION SUGGESTED > 7.0Performed By: #### A1C #### [facility] [address] [address] [address] Alley OchoaGlucose [Mass/Vol]120 mg/dLNoFayette County Memorial HospitalComment on above:Performed By: #### A1C #### [facility] [address] [place] [address] Dr. Alley OchoaHbA1c (Bld) [Mass fraction]5.8 %Normal4.5-6.2The [facility] Health SystemComment on above:Performed By: #### A1C #### [facility] [address] [place] [address] Dr. Alley BondsID PROFILEon [id number]-HDL RATIO NORMSEE [facility] Charles HospitalComment on above:Result Comment: 3.3 - 4.4 LOW RISK 4.4 - 7.1 AVERAGE RISK 7.1 - 11.0 MODERATE RISK >11.0 HIGH RISKPerformed By: #### CMP, LIPID #### [facility] [address] [place] [address] Dr. Alley Gallowayesterol [Mass/Vol]156 mg/dLNormal<=200The [facility] Comment on above:Performed By: #### CMP, LIPID #### [facility] [address] [place] [address] Dr. Alley Gallowayesterol in HDL [Mass/Vol]42 mg/yIFjuzoq16-28Noe [facility] SystemComholland hospital on above:Performed By: #### CMP, LIPID #### [facility] [address] [place] [address] Dr. Alley Gallowayesterol in LDL [Mass/Vol]65.0 mg/dLTuscarawas HospitalComment on above:Performed By: #### CMP, LIPID #### [facility] [address] [place] [address] Dr. Alley Gallowayesterdaphney.total/Cholesterol in HDL [Mass ratio]3.7 {ratio} NormalThe Trinity Health SystemComment on above:Performed By: #### CMP, LIPID #### [facility] [address] [place] [address] Dr. Alley James NORMAL> or = 60 mg/dl - LOW CARDIOVASCULAR RISK <40 mg/dl - HIGH CARDIOVASCULAR RISKTuscarawas HospitalComment on above:Performed By: #### CMP, LIPID #### [facility] [address] [address] [address] Alley Nguyen CALC NORMALSEE BELOWTuscarawas HospitalComment on above:Result Comment: <100 mg/dl OPTIMAL 100 - 129 mg/dl NEAR OR ABOVE OPTIMAL 130 - 159 mg/dl BORDERLINE HIGH 160 - 189 mg/dl HIGH >190 mg/dl VERY HIGH Performed By: #### CMP, LIPID #### [facility] [address] [place] [address] Dr. Alley OchoaTriglyceride [Mass/Vol]245 mg/dLCritically high<=150The [facility] SystemComholland hospital on above:Performed By: #### CMP, LIPID #### [facility] [address] [place] [address] Dr. Alley OlivaresLDL CALC49.0 mg/dLNoFayette County Memorial HospitalComholland hospital on above: Performed By: #### CMP, LIPID #### [facility] [address] [place] [address] Dr. Alley OchoaPROBrisa 14(COMP METB)on [id number] [Mass/Vol]3.8 g/dLNormal 3.4-5.0The [facility] Health SystemComment on above:Performed By: #### CMP, LIPID #### [facility] [address] [place] [address] Dr. Alley OchoaAlbumin/Globulin [Mass ratio]0.9 {ratio}NormalThe [facility] SystemComholland hospital on above:Performed By: #### CMP, LIPID #### [facility] [address] [place] [address] Dr. Alley Garner [Catalytic activity/Vol]92 U/THeeqsh72-033Gig St. Elizabeth Hospitalment on above:Performed By: #### CMP, LIPID #### [facility] [address] [address] [address] Alley Cosme [Catalytic activity/Vol]35 U/KIwjxlj97-49Jfr [facility] SystemComment on above:Performed By: #### CMP, LIPID #### [facility] [address] [place] [address] Dr. Alley Johnston gap [Moles/Vol]13.5 mmol/LNormalThe [facility] Comment on above:Performed By: #### CMP, LIPID #### [facility] [address] [address] [address] Alley OchoaAST [Catalytic activity/Vol]28 U/ZXhnhxw67-02Kdb [facility] SystemComment on above:Performed By: #### CMP, LIPID #### [facility] [address] [place] [address] Dr. Alley OchoaBilirubin [Mass/Vol]0.6 mg/dLNormal0.2-1.0[facility] Comment on above:Performed By: #### CMP, LIPID #### [facility] [address] [place] [address] Dr. Alley OchoaCalcium [Mass/Vol]9.1 mg/dLNormal8.5-10.1[facility] Comment on above:Performed By: #### CMP, LIPID #### [facility] [address] [place] [address] Dr. Alley OchoaChloride [Moles/Vol]101 mmol/CJvbwnr75-296FusParma Community General Hospital Comment on above:Performed By: #### CMP, LIPID #### [facility] [address] [place] [address] Dr. Alley OchoaCO2 [Moles/Vol]26.2 mmol/XEvhuzh28.0-32.0The [facility] Comment on above:Performed By: #### CMP, LIPID #### [facility] [address] [place] [address] Dr. Alley OchoaCreatinine [Mass/Vol]0.80 mg/dLNormal0.55-1.02The [facility] Health SystemComment on above:Performed By: #### CMP, LIPID #### [facility] [address] [place] [address] Dr. Alley ArmandoGFR-AF SENEGALESE>60Normal>=60The [facility] Health SystemComment on above:Performed By: #### CMP, LIPID #### [facility] [address] [place] [address] Dr. Alley ArmandoGFR-NON AF SENEGALESE>60Normal>=60The [facility] Health SystemComment on above:Performed By: #### CMP, LIPID #### [facility] [address] [place] [address] Dr. Alley OchoaGlobulin (S) [Mass/Vol]4.0 g/dLNormalThe [facility] Health SystemComment on above:Performed By: #### CMP, LIPID #### [facility] [address] [place] [address] Dr. Alley OchoaGlucose [Mass/Vol]115 mg/dLCritically kdjl60-534Ziz [facility] SystemComment on above:Performed By: #### CMP, LIPID #### [facility] [address] [place] [address] Dr. Alley OchoaPotassium [Moles/Vol]4.7 mmol/LNormal3.5-5.1The [facility] Comment on above:Performed By: #### CMP, LIPID #### [facility] [address] [place] [address] Dr. Alley OchoaProtein [Mass/Vol]7.8 g/dLNormal6.4-8.2The [facility] Comment on above:Performed By: #### CMP, LIPID #### [facility] [address] [place] [address] Dr. Alley OchoaSodium [Moles/Vol]136 mmol/CAblkxe797-156Zkw [facility] Comment on above:Performed By: #### CMP, LIPID #### [facility] [address] [place] [address] Dr. Alley OchoaUrea nitrogen [Mass/Vol]12.0 mg/dLNormal7.0-18.0The [facility] Health SystemComment on above:Performed By: #### CMP, LIPID #### [facility] [address] [place] [address] Dr. Yilan ChangUrea nitrogen/Creatinine [Mass ratio]15.0 mg/mgTuscarawas HospitalComment on above:Performed By: #### CMP, LIPID #### [facility] [address] [place] [address] Dr. Allye Alberts [id number] Ab CF (S) [Titer]NegativeQuotefish Other FLUBV Ab CF (S) [Titer]NegativeQuotefish Other Vital Signs Date TimeVital SignValuePerforming XavshyunvNcplaldz38-22-1861 15:01-0400Body tjlxje464.56 cmKarmen Tovar DIAGRAM CLERK Work Phone: [phone]79[facility] [place]10-14-2025 15:01-0400 Body mass index (BMI) [Ratio]28.5 kg/y1YlrfkbqvKarmen Tovar DIAGRAM CLERK Work Phone: [phone])[address]10-14-2025 15:01-0400 Body jtijnekyyjr24.8 [degF]Karmen Tovar DIAGRAM CLERK Work Phone: [phone])[address]134 [address]10-14-2025 15:01-0400 Body idoavs67.29 kgKarmen Tovar DIAGRAM CLERK Work Phone: [phone])38434 [address]10-14-2025 15:01-0400 Diastolic blood chbpueib62 mm[Hg]Karmen Tovar APRN Work Phone: [phone])70834 [address]10-14-2025 15:01-0400 Heart rate79 /minKarmen Tovar DIAGRAM CLERK Work Phone: [phone])[address]34 [address]10-14-2025 15:01-0400 SaO2% (BldA) [Mass fraction]96 %Karmen Tovar APRN Work Phone: [phone] [place]10-14-2025 15:01-0400 Systolic blood mm[Hg]Karmen Rohrbacher DIAGRAM CLERK Work Phone: [phone] [place]09-04-2025 15:36-0400 Diastolic blood npeigjhs18 mm[Hg]Karmen Arcenior DIAGRAM CLERK Work Phone: [phone]09-04-2025 15:36-0400 Heart rate90 /minJennifer Rohrbacher DIAGRAM CLERK Work Phone: [phone] [place], [place] 49[address]109-04-2025 15:36-0400 SaO2% (BldA) [Mass fraction]98 %Karmen Guy DIAGRAM CLERK Work Phone: [phone] [place], [place] 49[address]109-04-2025 15:36-0400 Systolic blood xvlmcaoq782 mm[Hg]Karmen Viktoriyaacher DIAGRAM CLERK Work Phone: [phone])[address] [place], [place] 49[address]108-27-2025 10:55-0400 Diastolic blood luhglqsg05 mm[Hg]Karmen Guy DIAGRAM CLERK Work Phone: [phone])[address] [place], [place] 49[address]108-27-2025 10:55-0400 Heart rate68 /minJennifer Rohrbacher DIAGRAM CLERK Work Phone: [phone] [place], [place] 49[address]108-27-2025 10:55-0400 Systolic blood bokloovz459 mm[Hg]Karmen Wilkinsabdullahiacher DIAGRAM CLERK Work Phone: [phone] [place], [place] 49[address]108-07-2025 15:02-0400 Body jldqae10.5 kgKarmen Wilkinsrbacher DIAGRAM CLERK Work Phone: [phone] [place], [place] 49[address]108-07-2025 15:02-0400 Heart rate84 /minJennifer Rohrbacher DIAGRAM CLERK Work Phone: [phone] [place], [place] 49[address]108-07-2025 15:02-0400 SaO2% (BldA) [Mass fraction]95 %Karmen Guy DIAGRAM CLERK Work Phone: [phone] [place], [place] 49[address]107-30-2025 15:53-0400 Body ananue817.6 cmBenjamin Murcek DO Work Phone: [facility] HospitalUmqoducuuu02-20-8678 15:53-0400Body mass index (BMI) [Ratio]29.18 kg/h5Riellqvt Murcek DO Work Phone: [facility] HospitalWtcilqrtvp59-23-0130 15:53-0400Body efdtxr87.11 kgBenjamin Murcek DO Work Phone: [phone] HospitalJdsmorwjrh40-37-4254 15:50-0400Body fjivfb833.6 cmBenjamin Murcek DO Work Phone: [facility] HospitalSlrgmrbcfz11-27-9549 15:50-0400Body mass index (BMI) [Ratio]29.18 kg/z5Nxlkufgh Murcek DO Work Phone: [facility] HospitalDrdjgozerm00-23-0608 15:50-0400Body .11 kgBenwaldemar Valdezcek DO Work Phone: [phone] HospitalEirpngpvwt25-68-9010 17:14-0400Body temperature 98.1 [degF]Karmen Tovar DIAGRAM CLERK Work Phone: [facility] [place]06-25-2025 17:14-0400 Diastolic blood lfatjthk22 mm[Hg]Karmen Tovar DIAGRAM CLERK Work Phone: [phone] [place]06-25-2025 17:14-0400 Heart rate73 /Jose R Tovar DIAGRAM CLERK Work Phone: [phone] [place]06-25-2025 17:14-0400 Respiratory rate16 /Jose R Tovar DIAGRAM CLERK Work Phone: [phone] [place]06-25-2025 17:14-0400 SaO2% (BldA) [Mass fraction]98 %Karmen Tovar DIAGRAM CLERK Work Phone: [facility] [place]06-25-2025 17:14-0400 Systolic blood xgtoctiw657 mm[Hg]Karmen Rohrbacher DIAGRAM CLERK Work Phone: [phone] [place], [place] [address]06-25-2025 13:03-0400 Body xmlsak393.56 cmKarmen Wilkinsrbacher DIAGRAM CLERK Work Phone: [phone] [address]06-25-2025 13:03-0400 Body .2 kgKarmen Wilkinsrbacher DIAGRAM CLERK Work Phone: [phone] [place], [place] 49[address]106-20-2025 11:05-0400 Diastolic blood tnwznyfe25 mm[Hg]Karmen Guy DIAGRAM CLERK Work Phone: [phone] [place], [place] 49[address]106-20-2025 11:05-0400 Heart rate83 /Jose R Viktoriyaacher DIAGRAM CLERK Work Phone: [phone] [place], [place] 49[address]106-20-2025 11:05-0400 Respiratory rate16 /Jose R Viktoriyaacher DIAGRAM CLERK Work Phone: [phone] [place], [place] 49[address]106-20-2025 11:05-0400 SaO2% (BldA) [Mass fraction]94 %Karmen Guy DIAGRAM CLERK Work Phone: [phone] [place], [place] 49[address]106-20-2025 11:05-0400 Systolic blood ubbbguuz429 mm[Hg]Karmen Guy DIAGRAM CLERK Work Phone: [phone] [place], [place] 49[address]106-20-2025 10:50-0400 Inhaled oxygen flow rate1 L/minKarmen Viktoriyaacher DIAGRAM CLERK Work Phone: [phone] [place], [place] 49[address]106-20-2025 10:29-0400 Body megldlolwoh69.4 [degF]Karmen Guy DIAGRAM CLERK Work Phone: [phone] [place], [place] 49[address]106-20-2025 06:46-0400 Body tqixht244.56 cmHokaitlinray Claudetterbacher DIAGRAM CLERK Work Phone: [phone] [place], [place] 49[address]106-20-2025 06:46-0400 Body ivljnn52.1 kgKarmen Wilkinsrbacher DIAGRAM CLERK Work Phone: [phone] [place], [place] [address]980105-16-2025 11:15-0400 Diastolic blood mm[Hg]Karmen Rggael DIAGRAM CLERK Work Phone: [phone] [place], [place] [address]0105-16-2025 11:15-0400 Heart rate67 /Jose R Sadleracher DIAGRAM CLERK Work Phone: [phone] [place], [place] [address]05-16-2025 11:15-0400 Respiratory rate18 /Jose R Sadleracher DIAGRAM CLERK Work Phone: [phone])26734 [address]05-16-2025 11:15-0400 SaO2% (BldA) [Mass fraction]97 %Karmen Wilkinsabdullahistephaniegael DIAGRAM CLERK Work Phone: [phone])[address]34 [address]05-16-2025 11:15-0400 Systolic blood mm[Hg]Karmen Wilkinsgrace DIAGRAM CLERK Work Phone: [phone] [place], [place] 49[address]105-16-2025 08:07-0400 Body oilkup901.56 cmKarmen Sadleracher DIAGRAM CLERK Work Phone: [phone])[address]05-16-2025 08:07-0400 Body jreopl60.57 kgKarmen Sadleracher DIAGRAM CLERK Work Phone: [phone] [place], [place] 49[address]104-28-2025 14:59-0400 Body ttgrbe650.6 cmBenjamin Murcek DO Work Phone: [phone]-[facility] HospitalJlvdacucxy58-40-9155 14:59-0400Body mass index (BMI) [Ratio]29.52 kg/d6Uldmodiy Murcek DO Work Phone: [facility] HospitalJgdwxvggsh57-97-8373 14:59-0400Body ozucpe76.02 kgBenjamin Murcek DO Work Phone: [facility] HospitalSbnchomumt69-91-1460 15:11-0400Body riutjb348.6 cmBenjamin Murcek DO Work Phone: [phone] [place], [place] [address]Roubwrlkfc46-31-2473 15:11-0400Body mass index (BMI) [Ratio]29.52 kg/j8Ofchtrfuwaldemar Beasley DO Work Phone: [facility] HospitalVslblpptyv90-77-4951 15:11-0400Body izbdbk77.02 kgBenwaldemar Beasley DO Work Phone: [facility] HospitalZmcgbulows96-10-2086 09:59-0500Body mknquh871.6 cmAngmariel Myersr QUANTITATIVE RESEARCHER Work Phone: [facility] HospitalIyhkdnwddp73-14-4168 09:59-0500Body mass index (BMI) [Ratio]29.52 kg/y4GcytdqDestiny Myersr QUANTITATIVE RESEARCHER Work Phone: [facility] HospitalZaejlacmzh90-68-0802 09:59-0500Body evkjxg74.02 kgDestiny Myersr QUANTITATIVE RESEARCHER Work Phone: [facility] HospitalTpvonpvftv65-18-2419 09:59-0500Diastolic blood ohsyhufq79 mm[Hg]Destiny Myersgael QUANTITATIVE RESEARCHER Work Phone: [facility] HospitalIfmevcaiyy34-27-4483 09:59-0500Systolic blood gekvfqyg257 mm[Hg]Destiny Myersr QUANTITATIVE RESEARCHER Work Phone: [facility] HospitalHsrvmfibsb55-55-7486 13:34-0500Body .56 cmJekaitlinray Wilkinsabdullahiacher DIAGRAM CLERK Work Phone: [facility] [place]02-05-2025 13:34-0500 Body mass index (BMI) [Ratio]29.2 kg/d8TdpdvnirKarmen Wilkinsrbacher DIAGRAM CLERK Work Phone: [facility] [place]02-05-2025 13:34-0500 Body rfrpjfvazou42.7 [degF]Karmen Tovar DIAGRAM CLERK Work Phone: [facility] [place]02-05-2025 13:34-0500 Body pzaafa05.11 kgJegabrielle Sadleracher DIAGRAM CLERK Work Phone: [facility] [place]02-05-2025 13:34-0500 Diastolic blood bknmhnje79 mm[Hg]Karmen Rgr DIAGRAM CLERK Work Phone: 1([phone] [place], [place] [address]02-05-2025 13:34-0500 Heart rate72 /minKarmen Wilkinsrbacher DIAGRAM CLERK Work Phone: [phone] [place], [place] 49[address]102-05-2025 13:34-0500 SaO2% (BldA) [Mass fraction]98 %Karmen Rgr DIAGRAM CLERK Work Phone: [phone] [place], [place] 49[address]102-05-2025 13:34-0500 Systolic blood jjkpqhsu822 mm[Hg]Karmen Rgr DIAGRAM CLERK Work Phone: [phone])[address] [place], [place] 49[address]101-09-2025 18:24-0500 Body wkayah790.56 cmKarmen Wilkinsrbacher DIAGRAM CLERK Work Phone: [phone] [place], [place] 49[address]101-09-2025 18:24-0500 Body mass index (BMI) [Ratio]27.2 kg/c1QajbgeotKarmen Wilkinsrbacher DIAGRAM CLERK Work Phone: [phone] [place], [place] 49[address]101-09-2025 18:24-0500 Body kwnxqkcyhbh49.3 [degF]Karmen Rgr DIAGRAM CLERK Work Phone: [phone])[address] [place], [place] 4945101-09-2025 18:24-0500 Body qwtjah34 kgKarmen Wilkinsrbacher DIAGRAM CLERK Work Phone: 1([phone])[address] [place], [place] 4945101-09-2025 18:24-0500 Diastolic blood hzharjdu37 mm[Hg]Karmen Rgr DIAGRAM CLERK Work Phone: 1(868)[address] [place], [place] 49[address]101-09-2025 18:24-0500 Heart rate78 /Jose R Claudetterbacher DIAGRAM CLERK Work Phone: 1(978)[address] [place], [place] 49[address]101-09-2025 18:24-0500 Respiratory rate16 /minKarmen Claudetterbacher DIAGRAM CLERK Work Phone: [phone])[address] [place], [place] 49[address]101-09-2025 18:24-0500 SaO2% (BldA) [Mass fraction]99 %Karmen Tovar DIAGRAM CLERK Work Phone: [facility] [place]01-09-2025 18:24-0500 Systolic blood kbnkwuoe069 mm[Hg]Karmen Guy DIAGRAM CLERK Work Phone: [phone] [place]12-18-2024 10:23-0500 Body owwotf798.6 cmAngmariel Schafermor QUANTITATIVE RESEARCHER Work Phone: [phone]-[facility] HospitalUoknanhxed84-63-0906 10:23-0500Body mass index (BMI) [Ratio]28.67 kg/o5OvoquoDestiny Schafermor QUANTITATIVE RESEARCHER Work Phone: [facility] HospitalXarsyvgbsn71-12-7370 10:23-0500Body .75 kgDestiny Schafermor QUANTITATIVE RESEARCHER Work Phone: [facility] HospitalJmeuxteojg81-40-3130 10:23-0500Diastolic blood xxftiiko40 mm[Hg]Destiny Schafermor QUANTITATIVE RESEARCHER Work Phone: 1(087)855-[facility] HospitalSgqvvfhtrv80-08-5422 10:23-0500Heart rate68 /min Destiny Gillmor QUANTITATIVE RESEARCHER Work Phone: [facility] HospitalZynxlxlbgm13-33-3697 10:23-0500Systolic blood mm[Hg]Destiny Schafermor QUANTITATIVE RESEARCHER Work Phone: [facility] HospitalXbnhgysekt73-07-4340 12:55-0500Diastolic blood uyykylsr61 mm[Hg]Karmen Tovar DIAGRAM CLERK Work Phone: [facility] [place]11-08-2024 12:55-0500 Heart rate60 /minJennifer Viktoriyaacher DIAGRAM CLERK Work Phone: [phone]11-08-2024 12:55-0500 Respiratory rate14 /minJennifer Viktoriyaacher DIAGRAM CLERK Work Phone: [phone]11-08-2024 12:55-0500 SaO2% (BldA) [Mass fraction]97 %Karmen Tovar DIAGRAM CLERK Work Phone: [facility] [place]11-08-2024 12:55-0500 Systolic blood mlineuuw821 mm[Hg]Karmen Tovar DIAGRAM CLERK Work Phone: [facility] [place]11-08-2024 09:55-0500 Body chywey941.56 cmKarmen Rgr DIAGRAM CLERK Work Phone: [facility] [place]11-08-2024 09:55-0500 Body tbojae23.57 kgKarmen Rgr DIAGRAM CLERK Work Phone: [facility] [place]10-22-2024 12:12-0400 Body ovzxgt260.6 cmElfego Degrootdon DO Work Phone: [facility]10-22-2024 12:12-0400 Body mass index (BMI) [Ratio]29.18 kg/p8Kakwtliharish Degrootdon DO Work Phone: 1(101)966-[address] [place], [place] 7733110-22-2024 12:12-0400 Body mgjmed49.11 kgWiharish Degrootdon DO Work Phone: 1([phone])759-[address] [place], [place] 7733110-22-2024 12:12-0400 Diastolic blood gmcbmgos15 mm[Hg]Elfego Mclean DO Work Phone: 2(606)290-[address] [place], [place] 7733110-22-2024 12:12-0400 Heart rate62 /minElfego Degrootdon DO Work Phone: [phone] [place], [place] 7733110-22-2024 12:12-0400 Systolic blood brtdpqew127 mm[Hg]Elfego Degrootdon DO Work Phone: 1(101)334-[address] [place], [place] 7733108-27-2024 10:42-0400 Body ktyuzd440.6 cmAjose Anders QUANTITATIVE RESEARCHER Work Phone: [facility] HospitalLtfinkpobp90-35-0735 10:42-0400Body mass index (BMI) [Ratio]28.67 kg/a5SxlriyDestiny Anders QUANTITATIVE RESEARCHER Work Phone: [facility] HospitalJikizfxttf21-39-2540 10:42-0400Body .75 kgDestiny Anders QUANTITATIVE RESEARCHER Work Phone: [facility] HospitalAmzxfxdwdg71-71-0744 10:42-0400Diastolic blood mosclkua67 mm[Hg]Destiny Anders QUANTITATIVE RESEARCHER Work Phone: [facility] HospitalUphoplfrxl22-64-1965 10:42-0400Heart rate70 /min Destiny Anders QUANTITATIVE RESEARCHER Work Phone: [facility] HospitalQxqxqpxrii61-28-0507 10:42-0400Systolic blood mdnxykwd523 mm[Hg]Destiny Anders QUANTITATIVE RESEARCHER Work Phone: [facility] HospitalVgveesuvsx62-94-1136 10:59-0400Body ujaxpm172.56 cm[facility] [facility] [place]-19[facility]24 10:59-0400Body mass index (BMI) [Ratio]27.9 kg/c1FpvlhgzwoSelect Medical [facility] [place] 10:59-0400Body akyciy45.93 kg[facility] [place]2024 10:59-0400Diastolic blood yorciiqu53 mm[Hg][facility] [place]08-19-2024 10:59-0400 Heart rate72 /minSelect [facility] [place]08[facility]19-2024 10:59-1289UbH4% (BldA) [Mass fraction]98 %[facility] [place]08-19-2024 10:59-0400 Systolic blood qitztlqg290 mm[Hg][facility] [place]06-12-2024 14:33-0400Diastolic blood klmaoply51 mm[Hg]Nathalie [address] [place], [place] 1794406-12-2024 14:33-0400Heart rate66 /minEly [address] [place], [place] 1794406-12-2024 14:33-0400Systolic blood idafjdjj202 mm[Hg][address]08-11-2023 10:00-0400Body gnoxlb793.56 cmKarmen Tovar Other [place] [employer] Other 08-11-2023 10:00-0400Body mass index (BMI) [Ratio] 29.18 kg/n4BlaohqlzKarmen Tovar Other [employer] Other 08-11-2023 10:00-0400Body lgnctu73.11 kgKarmen Tovar Other [employer] Other 08-11-2023 10:00-0400Diastolic blood riolexdo16 mm[Hg] Karmen Tovar Other [employer] Other 08-11-2023 10:00-0400Systolic blood xiuxfjze360 mm[Hg] Karmen Tovar Other [employer] Other 07-28-2023 15:05-0400Body aoknhd092.56 cmLrandi Perry Other [employer] Other 07-28-2023 15:05-0400Body mass index (BMI) [Ratio] 28.66 kg/r1XtkqphMag Perry Other [employer] Other 07-28-2023 15:05-0400Body isllmggzkjw22.1 [degF]Mag Perry Other [employer] Other 07-28-2023 15:05-0400Body .75 kgMag Perry Other [employer] Other 07-28-2023 15:05-0400Diastolic blood uvipejsf71 mm[Hg] Mag Perry Other [employer] Other 07-28-2023 15:05-0400Respiratory rate18 /minMag Perry Other [employer] Other 07-28-2023 15:05-6343CzS5% (BldA) [Mass fraction]93 % Mag Quickley Other [employer] Other 07-28-2023 15:05-0400Systolic blood vvelwjkl397 mm[Hg] Mag Vicky Other [employer] Other 03-28-2023 11:25-0400Body .56 cmAmbluciana Rodríguez Other [employer] Other 03-28-2023 11:25-0400Body mass index (BMI) [Ratio] 28.42 kg/w6CdbtfKimberley Rodríguez Other [employer] Other 03-28-2023 11:25-0400Body wjdpaunnmjd92 [degF]Kimberley Rodríguez Other [employer] Other 03-28-2023 11:25-0400Body gbcywd28.12 kgKimberley Rodríguez Other [employer] Other 03-28-2023 11:25-0400Diastolic blood uvulwdzr14 mm[Hg] Kimberley Rodríguez Other [employer] Other 03-28-2023 11:25-0400Respiratory rate16 /minKimberley Rodríguez Other [employer] Other 03-28-2023 11:25-6223XlX1% (BldA) [Mass fraction]97 % Kimberley Rodríguez Other [employer] Other 03-28-2023 11:25-0400Systolic blood emllmnmy919 mm[Hg] Kimberley Rodríguez Other [place] [employer] Other 01-23-2023 15:57-0500Body vamxtp462.56 cmDO [employer] Work Phone: [phone] [place]01-23-2023 12:00-0500 Diastolic blood opkvkjyh61 mm[Hg]DO [employer] Work Phone: [phone] [place]01-23-2023 12:00-0500 Heart rate78 /minDO Osiel [employer] Work Phone: [phone] [place], [place] 6[address]4101-23-2023 12:00-0500 Respiratory rate16 /minDO Osiel [employer] Work Phone: [phone] [place], [place] [address]4101-23-2023 12:00-0500 SaO2% (BldA) [Mass fraction]97 %DO Osiel [employer] Work Phone: [phone] [place]01-23-2023 12:00-0500 Systolic blood fciwohjn767 mm[Hg]DO Osiel House Work Phone: [phone] [place]01-23-2023 08:00-0500 Body fodssijodij25.8 [degF]DO [employer] Work Phone: [phone] [place]01-23-2023 05:40-0500 Body cpjkyg19.1 kgDO [employer] Work Phone: [phone] [place]01-22-2023 21:52-0500 Body .56 cmDO [employer] Work Phone: [phone] [place]01-22-2023 21:52-0500 Body vhtffoucfox49.8 [degF]DO [employer] Work Phone: [phone] [place]01-22-2023 21:52-0500 Body .9 kgDO [employer] Work Phone: [phone] [place]01-22-2023 21:52-0500 Diastolic blood pkcrynwh66 mm[Hg]DO Osiel House Work Phone: [facility] [place]01-22-2023 21:52-0500 Heart rate65 /AmadouO Osiel House Work Phone: [facility] [place]01-22-2023 21:52-0500 Respiratory rate16 /minDO Osiel House Work Phone: [facility] [place]01-22-2023 21:52-0500 SaO2% (BldA) [Mass fraction]96 %DO Osiel House Work Phone: [facility] [place]01-22-2023 21:52-0500 Systolic blood ibngmzkq738 mm[Hg]DO Osiel House Work Phone: [facility] [place]01-22-2023 00:00-0500 60 1Charles P House Work Phone: [phone]-Lkmjg [facility] [address] DO Work Phone: Comment on above:[id number] 15:05-0400Body .56 cmAlupe Rodríguez Other [employer] Other 11-04-2022 15:05-0400Body mass index (BMI) [Ratio] 28.66 kg/c5HwllqKimberley Rodríguez Other [employer] Other 11-04-2022 15:05-0400Body .9 [degF]Kimberley Rodríguez Other [employer] Other 11-04-2022 15:05-0400Body .75 kgKimberley Rodríguez Other [employer] Other 11-04-2022 15:05-0400Diastolic blood vsidefku54 mm[Hg] Kimberley Rodríguez Other [place] [employer] Other 11-04-2022 15:05-0400Respiratory rate18 /minKimberley Rodríguez Other [employer] [facility] [employer] Other 11-04-2022 15:05-8738LcU6% (BldA) [Mass fraction]96 % Kimberley Rodríguez Other [place] [employer] Other 11-04-2022 15:05-0400Systolic blood dpobiaqv942 mm[Hg] Kimberley Rodríguez Other [facility] [employer] Other 08-24-2022 15:58-0400Body brhytb231.56 cmCharles Mobil Oto Servis Work Phone: [phone]-Ujhbm [place] [employer] DO Work Phone: 1(166) 395-868908-24-2022 15:58-0400Body mass index (BMI) [Ratio] 28.32 kg/l6Nourlaq P [employer] Work Phone: [phone]-Zvuqw [place] [employer] 250 DO Work Phone: [phone] 853-174208-24-2022 15:58-0400Body surface area Derived from formula1.8 d2Bpwvrmz Bimici House Work Phone: [phone]-Harqo [place] [employer] 250 DO Work Phone: [phone]) 893-194708-24-2022 15:58-0400Body .84 kgCharles P [employer] Work Phone: [phone]-Sytwy [place] [employer] 250 DO Work Phone: 1([phone]) 481-675108-24-2022 15:58-0400Diastolic blood mm[Hg] Osiel P House Work Phone: [phone]-Uqbdz [place] [employer] 250 DO Work Phone: 1(464) 128-387808-24-2022 15:58-0400Heart rate68 /minCharles P House Work Phone: [phone]-Kvaxw [facility] [address] DO Work Phone: 1(511) 707-184808-24-2022 15:58-0400Systolic blood aaotdqkb460 mm[Hg] Osiel P House Work Phone: [phone]-Tbyzz [facility] [address] DO Work Phone: 1(404) 219-783408-23-2022 14:57-770976 1Charles P House Work Phone: [facility] Work Phone: Comment on above:[id number] 11:15-0500Body height 162.56 cmPeggy Fournier Other [employer] Other 03-04-2022 11:15-0500Body mass index (BMI) [Ratio] 28.32 kg/e2Wyscp Fournier Other [employer] Other 03-04-2022 11:15-0500Body bmzupwgutnh84.1 [degF]Jael Fournier Other [employer] Other 03-04-2022 11:15-0500Body olkkxe59.84 kgPeggy Fournier Other [employer] Other 03-04-2022 11:15-1395OsF6% (BldA) [Mass fraction]97 % Jael Fournier Other [employer] Other Encounters Encounter DateEncounter TypeCare ProviderFacilityStart: 03-24-2025 End: 56-75-0387sdzntonqbqOcbysncs Rohrbacher APRN Work Phone: [facility] Work Phone: Start: 03-24-2025 End: 92-07-3417Ewhfiyj encounter procedureKarmen Tovar DIAGRAM CLERK CASTING SUPERVISOR-FP[facility] Work Phone: Start: 03-12-2025 End: 58-61-1822dunapuzitdNvuactsz Claudetterbacher DIAGRAM CLERK Work Phone: [facility] Work Phone: Start: 03-12-2025 End: 62-67-9595Cauixsh encounter procedureHui Vásquez DO-FPG [facility] [place] Work Phone: Start: 02-12-2025 End: 60-26-4510xzterpkncnJxmfshug Rohrbacher DIAGRAM CLERK Work Phone: [facility] Work Phone: Start: 02-12-2025 End: 14-86-1254Ncbzida encounter procedureHui Vásquez DO-[facility] [place] Work Phone: Start: 02-04-2025 End: 86-45-0550honnjyheecXvwgqaum Claudetterbacher DIAGRAM CLERK Work Phone: [facility] Work Phone: Start: 02-04-2025 End: 03-38-7793Rwhoxcb encounter procedureDestiny Siddiqi DIAGRAM CLERK-[facility] [place] Work Phone: Start: 01-15-2025 End: 37-61-3895zbuwqvjoezZwbptxuj Claudetterbacher DIAGRAM CLERK Work Phone: [facility] Work Phone: Start: 01-15-2025 End: 31-21-7149Khlrolf encounter procedureNicole Bassem Vásquez DO-[facility] [place] Work Phone: Start: 01-07-2025 End: 06-21-9497dljcqjkjlnACKNTHWE W MURCristin AvailableStart: 01-07-2025 End: 68-04-8779Nvuzcd follow up visit related to original pxBenjamin W Murcekyler DO Work Phone: noms [place] OtolaryngologyComment on above:ALMA (obstructive sleep apnea) (Primary Dx)Start: 01-07-2025 End: 09-78-0293Ladpsy flowsheetBenjamin W Murcek DO Work Phone: noms [place] OtolaryngologyStart: 01-07-2025 End: 50-27-5587Pahtzq flowsheetBenjamin W Murcekyler DO Work Phone: noms [place] OtolaryngologyStart: 12-08-2024 End: 07-83-0286kmqggnqbjyWUTMXDZD W MUKUNDot AvailableStart: 12-08-2024 End: 64-04-7619Bbzvda follow up visit related to original pxBenjamin W Murcek DO Work Phone: noms ENT SANDUSKYComment on above:Obstructive sleep apnea (Primary Dx)Start: 12-08-2024 End: 19-17-2723Usowhh flowsheetBenjamin W Murcek DO Work Phone: noms ENT SANDUSKYStart: 12-08-2024 End: 02-61-7204Fvlmjp flowsheetBenjamin W Murcek DO Work Phone: noms ENT SANDUSKYStart: 12-04-2024 End: 52-59-6106Tuubmwy encounter Mackenzie Burt MD-Lab [facility] Work Phone: Start: 12-04-2024 End: 67-12-5829spdpgnfyygFbqamxvo Rohrbacher DIAGRAM CLERK Work Phone: [facility] Work Phone: Start: 85-93-7492Qse-patient / Non-visitCatherine Erasmo [facility] Work Phone: Start: 12-03-2024 End: 39-04-1315Acvykitna department patient visitKarmen Tovar DIAGRAM CLERK Work Phone: [phone]-Maarglcwv Room Work Phone: Start: 11-28-2024 End: 01-96-1953mkdhrzmknaAGKCNEJG W MURCEKNot AvailableStart: 11-28-2024 End: 10-85-8575Byosdhedo encounterBenwaldemar Beasley DO Work Phone: NOSW ENT SANDUSKYStart: 11-28-2024 End: 41-30-9642Dzfqzclls to same day surgery centerBemaury Beasley DO-[facility] CampusStart: 11-28-2024 End: 36-87-1064tqwkluadouTnxuajrr MurcekFacility:[facility] Centertart: 11-21-2024 End: 97-90-8972Siguslyh Result EncounterBemaury Beasley DO Work Phone: noms External Department UnsolicitedStart: 11-21-2024 End: 73-79-3336Veaajhhc Result EncounterBemaury Beasley DO Work Phone: noms External Department UnsolicitedStart: 11-21-2024 End: 19-25-5967Ixirywf encounter procedureBemaury Beasley DR-Taf-[facility]xliug[facility] Testing Work Phone: Start: 11-21-2024 End: 64-36-8294vppjtpsasxJletdnpm MurcekFacility:[facility] Centertart: 67-76-0055Zqdppvyib for preprocedural laboratory examination Kilo Tong [facility] GroupStart: 81-52-1448Xpq-patient / Non-visitShefali ObrienAt[facility] Health [facility] Work Phone: Start: 79-11-3832Ejl-patient / Non-visitEthan Burt MD- [facility] Work Phone: Start: 10-24-2024 End: 75-13-9233Aakjmqrjx to same day surgery centerEthan Burt MD-[facility] Work Phone: Start: 10-24-2024 End: 34-52-6350faenhanrguLsem AsaadFacility:[facility] [place] Start: 42-47-7608Lmv-patient / Non-visitEthan Burt MD-[facility] Work Phone: Start: 10-06-2024 End: 79-30-5367hbmgccelexDPTOTZRO W MURCEKNot AvailableStart: 10-06-2024 End: 69-83-8427Jzgcwo outpatient visit 25 minutesBenjamin W Murcek DO Work Phone: noms ENT SANDUSKYComment on above:Obstructive sleep apnea (Primary Dx); Intolerance of continuous positive airway pressure (CPAP) ventilationStart: 10-06-2024 End: 78-52-1831Umibmg flowsheetBenjamin W Murcek DO Work Phone: noms ENT SANDUSKYStart: 10-06-2024 End: 06-36-0808Nlknvf flowsheetBenjamin W Murcek DO Work Phone: noms ENT SANDUSKYStart: 09-29-2024 End: 48-99-6956hmnscjbatlCMCRTCYJ W MURCEKNot AvailableStart: 09-03-2024 End: 79-09-4733Eiktjz outpatient new 45 minutesBenjamin W Murcek DO Work Phone: noms ENT SANDUSKYComment on above:Intolerance of continuous positive airway pressure (CPAP) ventilation (Primary Dx); ALMA (obstructive sleep apnea)Start: 09-03-2024 End: 46-69-0561cngazfmtpjLVMLZKXS W MURCEKNot AvailableStart: 09-03-2024 End: 10-20-6614Woqrgc flowsheetBenjamin W Murcek DO Work Phone: noms ENT SANDUSKYStart: 09-03-2024 End: 28-71-1153Bqmqzc flowsheetBenjamin W Murcek DO Work Phone: noms ENT SANDUSKYStart: 08-28-2024 End: 42-71-5882uhpdmycgxoTFGLSF GILLMORNot AvailableStart: 08-18-2024 End: 17-33-5465Gsxgkef encounter procedureKarmen Tovar DIAGRAM CLERK Work Phone: [facility] [place] Work Phone: Start: 08-18-2024 End: 05-64-7710dpevszrzucBcewuosl Rohrbacher DIAGRAM CLERK Work Phone: [facility] Work Phone: Start: 08-06-2024 End: 89-27-9152Dleice flowsheetNicole Fahad DO Work Phone: aNA SANDUSKYStart: 08-06-2024 End: 02-47-9683Tdcpgg flowsheetNicole Fahad DO Work Phone: aNA SANDUSKYStart: 08-06-2024 End: 83-98-3540vzxonnqcaoLBFGVZ DANNERNot AvailableStart: 08-06-2024 End: 05-35-9532Trcfiel encounter procedureNicole Fahad DO Work Phone: aNA TANIKAYComment on above:Arm pain, left (Primary Dx); Numbness and tinglingStart: 07-31-2024 End: 15-39-9413Npyraz Sofia Anders QUANTITATIVE RESEARCHER Work Phone: aNA BELLEVUEStart: 07-31-2024 End: 69-57-7699Xsskyq flowsMike Anders QUANTITATIVE RESEARCHER Work Phone: aNA BELLEVUEStart: 07-31-2024 End: 73-16-9078Xpbkmhrkn encounterAngelucia Anders QUANTITATIVE RESEARCHER Work Phone: aNA BELLEVUEStart: 07-31-2024 End: 02-74-7629Nxhnmc outpatient visit 25 minutesAngelucia Anders QUANTITATIVE RESEARCHER Work Phone: aNA RAQUELUEComment on above:ALMA (obstructive sleep apnea) (Primary Dx); Paresthesia of right arm; Transient ischemic attack; Complicated migraine (CMS/HCC); Numbness and tingling; Pure hypercholesterolemia (CMS/HCC)Start: 07-31-2024 End: 82-77-2563nxgdrwrkraJPRJPG GILLMORNot AvailableStart: 07-16-2024 End: 21-23-3671euzhlvdoafFgtukpgx Rohrbacher DIAGRAM CLERK Work Phone: [facility] Work Phone: Start: 07-16-2024 End: 87-40-7480Ufefjct encounter procedureKarmen Tovar DIAGRAM CLERK Work Phone: [facility] Work Phone: Start: 06-19-2024 End: 17-00-3058vkqtvtclogQsboxybt Rohrbacher DIAGRAM CLERK Work Phone: [facility] Work Phone: Start: 06-19-2024 End: 89-34-8256Bokbrmr encounter procedureKarmen Tovar DIAGRAM CLERK Work Phone: Pending [facility] Work Phone: Start: 05-28-2024 End: 48-59-3214Hohbra Sofia Anders QUANTITATIVE RESEARCHER Work Phone: noms [facility] [facility] R[address]TEStart: 05-28-2024 End: 26-25-8622Sajnbn flowsMike Anders QUANTITATIVE RESEARCHER Work Phone: NOMS [place] [address] ROUTEStart: 05-28-2024 End: 19-87-3079Lxuixx outpatient visit 25 minutesAngelucia Anders QUANTITATIVE RESEARCHER Work Phone: noms [place] STATE ROUTEComment on above:ALMA (obstructive sleep apnea) (Primary Dx); Complicated migraine (CMS/HCC); Transient ischemic attack; Numbness and tingling; Carpal tunnel syndrome, leftStart: 05-28-2024 End: 05-63-5843kzvkevjslxNWCDFM GILLMORNot AvailableStart: 09-53-0644Wsb-patient / Non-visitKarmen Tovar DIAGRAM CLERK Work Phone: P[facility] Gastroenterology Work Phone: Start: 04-18-2024 End: 45-08-1447Jgvxpllrg to same day surgery Pito Tovar DIAGRAM CLERK Work Phone: [facility]-Dig[facility] Work Phone: Start: 04-18-2024 End: 39-61-8431mvgfrsnumkFbvaruqy Rohrbacher DIAGRAM CLERK Work Phone: [facility] Work Phone: Start: 04-06-2024 End: 71-88-0855Xzddsefql Result EncounterCorey Elana DO Work Phone: noms External Department UnsolicitedStart: 04-06-2024 End: 61-46-3796Hbxosbjzo Result EncounterCorey Elana DO Work Phone: noms External Department UnsolicitedStart: 04-01-2024 End: 52-28-0116Unkodg outpatient visit 25 [facility]carolrickyMethod[facility] DO Work Phone: FirelandsComment on above:Atherosclerosis of nightm[place] coronary artery of nightmute heart without angina pectoris; Status post angioplasty; TIA (transient ischemic attack); Body mass index (BMI) 29.0-29.9, adult; Current every day smoker; Hyperlipidemia, unspecified hyperlipidemia typeStart: 04-01-2024 End: 13-90-0014scfqippohlRLPZJUVJeff Davis Hospital AmbulatoryStart: 02-05-2024 End: 24-72-7683Bfnfvz Sofia Anders QUANTITATIVE RESEARCHER Work Phone: noms [facility] R[address]TEStart: 02-05-2024 End: 03-61-0538Mweylj Sofia Anders QUANTITATIVE RESEARCHER Work Phone: noms [place] [address] R[address]TEStart: 02-05-2024 End: 64-86-3010akcwafhgeoFDXVLX GILLMORNot AvailableStart: 02-05-2024 End: 46-32-7558Ilrzrf outpatient visit 25 minutesAngelucia Anders QUANTITATIVE RESEARCHER Work Phone: noms [facility] R[facility]TEComment on above:ALMA (obstructive sleep apnea) (Primary Dx); Complicated migraine (CMS/HCC); Paresthesia of right arm; Paresthesia of foot, bilateral; Carpal tunnel syndrome, left; Transient ischemic attackStart: 2024 End: 42-55-3259Fkmutbsao Result EncounterDestiny Anders QUANTITATIVE RESEARCHER Work Phone: noms External Department UnsolicitedStart: 2024 End: 51-17-0232Axdzarogg Result EncounterDestiny Anders QUANTITATIVE RESEARCHER Work Phone: noms External Department UnsolicitedStart: 2024 Non-patient / Non-visitJegabrielle Tovar APRN Work Phone: [facility] GroupK[facility] Work Phone: Start: 01-28-2024 End: 55-94-1658rhsrojegjtTmpkpacjdOhioHealth Work Phone: Start: 01-28-2024 End: 55-94-3213Ldhxatj encounter procedurePending Sale To [facility] GroupOhio[facility] Work Phone: Start: 11-21-2023 End: 69-70-5027ywcpmyrhdsPODTGAUSalem City Hospitaltart: 11-21-2023 End: 90-89-5820Ydacwbowry hospital visit by Jossy Prasad Stress Room 1 [facility] CenterComment on above:Atherosclerosis of nightm[place] coronary artery, unspecified whether angina present, unspecified whether nightmute or transplanted heartStart: 05-07-2023 End: 52-80-2130xcviuzoruyGgpajzwa Rohrbacher Other [facility] SocialDi[facility] Other Start: 56-44-0949Nvjpkdfei encounterKarmen FlanaganThe Jewish Hospitaltart: 04-04-2023 End: 10-42-1189juatcbivtrVfqypiax Rohrbacher Other noZenytime [employer] Other Start: 78-89-0418Obzlkjwnu encounterJennifer RohrbacherFPG [facility] Campustart: 03-29-2023 End: 69-33-4225xinhffeoaxVvjomino Rohrbacher Other [facility] SocialDi[facility] Other Start: 41-82-8322Shqkqgbem encounterJennifer RohrbacherFThe Jewish Hospitaltart: 71-62-2837Rc RenewalCharles P House Work Phone: [phone]-VhbrsMaple Grove [facility]-[place] 250 DO Work Phone: Start: 04-85-6859Fn RenewalCharles P House Work Phone: [phone]-PeroxMaple Grove Hospital-[place] 250 DO Work Phone: Start: 61-64-9572Wbmxexqbc encounterCharles P House Work Phone: [phone]-NiulnMaple Grove Hospital-[place] 250 DO Work Phone: Start: 73-69-1640ZAEZCFsizgmo P House Work Phone: [phone]-IycnrLakewood Health [facility] 250 DO Work Phone: Start: 01-24-2023 End: 65-84-8067dshadgdhsvSzqslfsh Rohrbacher Other [employer]ss[facility] [employer] Other Start: 80-00-5881Cqaywsuqk encounterJennifer Claudetterbacherrt Year Up CoStart: 01-19-2023 End: 14-66-6001ypygbwstebIeppswpv Rohrbacher Other [facility] SocialDiabetes Other Start: 21-39-8796Kalkpbuzr for general adult medical examination without abnormal findingsKarmen FlanaganCenterville Start: 69-38-4469Jtjpnxq preventive medicine new patient 40-64yrsKarmen Murrell [facility] ClinicStart: 01-05-2023 End: 27-22-3639gyyunbghbvYiendv Bailey Other [facility] SocialDi[employer] Other Start: 57-34-9716Tgyqef outpatient visit 15 minutes Mag L[facility] ClydeStart: 18-61-5571Iw RenewalCharles P House Work Phone: [phone]-Kooqq [facility] [address] DO Work Phone: Start: 55-27-8468shrpuakzjpUa. Osiel GardunoCassia Regional Medical Center Facility:[id number]: 09-07-2022 End: 70-95-1916bypupsvsayFzuyx Keller Other [place] SocialDi[employer] Other Start: 75-80-1903Aeiyjbzzq encounterAmbluciana Smith [facility] Baldwin RoadStart: 61-61-6298Rufsrg outpatient visit 15 minutesKimberley Smith [facility] ClydeStart: 09-05-2022 End: 10-90-3240ghttfvomwiVQ [facility] Work Phone: [facility] Work Phone: Start: 09-05-2022 End: 23-32-4650Wsebkjbe ReferredMiddletown Hospital Work Phone: [facility]-Lab [facility] [place] Work Phone: Start: 08-25-2022 End: 98-01-0881wucmchfqdoNM OSIEL SAN FRANCISCOFacility:F1Pfjsg: 74-94-9960Sf Renewal Osiel [facility] Work Phone: [phone]-Hrnsx [place] [facility] [address] DO Work Phone: Start: 45-02-1535wsoudwsrrnVtwhf R FAZIOFacility: NancyevueStart: 65-69-8955Sq RenewalCharles P House Work Phone: [phone]-Vwach [facility] 250 DO Work Phone: Start: 07-02-2022 End: 45-28-0466Pnlrwwzadw and management of inpatientDO Osiel Pettit Work Phone: [facility] [place] [facility] Work Phone: Start: 07-02-2022 End: 98-26-9493ohmfnzbkkfr encounterDO Osiel Pettit Work Phone: [facility] Work Phone: Start: 04-23-1730baqwhdgcceDtehp FAZIOFacility: [place]vueStart: 05-17-2022 End: 48-87-4146xtqyldlcumYI DIANA Gonzalez WESTFacility:H9Fgtzh: 04-20-2022 End: 20-51-0228hqdequoaobKX OSIEL [place] FRANCISCOFacility:A0Rztoi: 05-60-1902Yl Renewal Osiel P House Work Phone: [phone]-Gylxo [facility] [address] DO Work Phone: Start: 04-14-2022 End: 57-78-9852tvqkxzpjgzOghaq Keller Other [place] SocialDiabetes Other Start: 68-50-8240Pkynri outpatient visit 25 minutes Kimberley [facility] ClydeStart: 79-01-0246Iu RenewalCharles P House Work Phone: [phone]-Lsyyy [facility] [address] DO Work Phone: Start: 99-04-6543Vlgmbkhux encounterCharles P House Work Phone: [phone]-Tsswj [facility] [address] DO Work Phone: Start: 18-74-4798pdbfnqfcgeQb. Donna Smith Facility:[id number]: 66-66-5816Ny RenewalCharles P House Work Phone: [phone]-Wrkki [facility] 250 DO Work Phone: Start: 25-98-3961Mouwxcorj for general adult medical examination without abnormal findingsDR OSIEL Wilson Street Hospitaltart: 72-10-4596gkweazksjoIs. Jerome Cason BenignoFacility:[id number]: 02-01-2022 Office outpatient visit 15 minutesCharles P House Work Phone: [phone]-Jtsfq [facility] 600 DO Work Phone: Start: 64-70-7884Eremkgj encounter procedureCharles P House Work Phone: [phone]-Evgec [facility] 250 DO Work Phone: Start: 01-31-2022 End: 40-35-4885xfvpwumfbvDG OSIEL [place]COFacility:X8Xrpsq: 01-31-2022 End: 21-30-0073Lnfuzztme for general adult medical examination without abnormal findingsDR OSIEL PETTITFacility:E2Lrofl: 22-10-6320Ua RenewalCharles P House Work Phone: [phone]-Tvrfm [facility] 250 DO Work Phone: Start: 80-18-4895Nz RenewalCharles P House Work Phone: [phone]-Ttvpb [facility] 250 DO Work Phone: Start: 08-98-4768Qz ChangeCharles P House Work Phone: [phone]-Ltlxv [facility] 250 DO Work Phone: Start: 22-54-1520Hd ChangeCharles P House Work Phone: [phone]-Rqdyy [facility] 600 DO Work Phone: Start: 76-71-5739Nxluqebmh encounterCharles P House Work Phone: [phone]-Ywufb [facility] 250 DO Work Phone: Start: 91-59-0165Ju RenewalCharles P House Work Phone: [phone]-Ljrkk [facility] 250 DO Work Phone: Start: 64-82-6642Hpjxwncfa encounterCharles P House Work Phone: [phone]-Rqjlq [facility] 250 DO Work Phone: Start: 08-12-2021 End: 90-69-1848xpacbmaoqhXppqv Fournier Other [facility] SocialDiabetes Other Start: 08-18-3433Hlqzxe outpatient visit 15 minutes Jaeldamian [facility]VAL[facility] ClydeStart: 13-75-7555Eg RenewalCharles P House Work Phone: [phone]-MjfmeShriners Children's Twin Citiesusky 250 DO Work Phone: Start: 63-61-8356Musqazw encounter procedurePROVIDER UNKNOWNFacility:1532Patient encounter statusCharles House Work Phone: [phone]-QdlhcShriners Children's Twin Citiesusky 250 DO Work Phone: Procedures DateProcedureProcedure DetailPerforming ClinicianStart: 11-28-2024 Neurostimulation of cranial nerveJennifer Claudetterbacher DIAGRAM CLERK Work Phone: Start: 15-89-7967Gssqd metabolic panel calcium total Kilo W Murmichaelk DO Work Phone: start: 08-37-3012Hdqqzueu blood count with white cell differential, automatedBenjamin W Murcek DO Work Phone: start: 60-47-4543GrpgofmzmsaRywwrwpn Rohrbacher DIAGRAM CLERK Work Phone: Start: 08-06-2024 End: 14-19-4282Whszer emg ea extremty w/paraspinl area completeNicole Fahad DO Work Phone: Start: 03-59-4895Illtm Strep (POC)Karmen Viktoriyastephaniegael DIAGRAM CLERK Work Phone: Start: 82-72-3830XzwpungaxucgqlvzhrudnvvylgGjxahxts Rohrbacher DIAGRAM CLERK Work Phone: Start: 69-71-6253OJ TOMOSYNTHESIS SCREENING BICorey Elana DO Work Phone: Start: 77-56-4044AqswevzyugjIflufp Gillmor QUANTITATIVE RESEARCHER Work Phone: Start: 59-72-0044NUA FOLIC ACIDAngela Gillmor QUANTITATIVE RESEARCHER Work Phone: Start: 37-72-9603LIT VITAMIN Q27Kskiwy Hanhmor QUANTITATIVE RESEARCHER Work Phone: Start: 68-05-7914Eb strs tst xers&/or rx cont ecg trcg onlyWilliam S Vinay DO Work Phone: Start: 53-05-0030IogyippsrweXqqvkq Gillmor QUANTITATIVE RESEARCHER Work Phone: Start: 30-95-2297Ynhxcpdbkoz observation [Identifier] in Cervix by Cyto stainBenwaldemar Beasley DO Work Phone: start: 68-49-0077POB of headDO Zounds Work Phone: Start: 09-01-2652NN angiography of headDO Zounds Work Phone: Start: 59-07-8078VE angiography of neck vesselsDO Zounds Work Phone: Start: 80-34-2734AQ of head without contrastDO Zounds Work Phone: Start: 73-30-4827Dgpcg chest X-rayDO Zounds Work Phone: Start: 71-68-1150Lxjku cultureDO Zounds Work Phone: Start: 94-84-5752Ctkzkrjvrzj observation [Identifier] in Cervix by Cyto stainEly 1Start: 15-79-1633RjxcgvoksomSan 1Cesarean section Osiel P House Work Phone: CholecystectomyCharpartha P House Work Phone: History of percutaneous transluminal coronary angioplastyHistory of PTCA 1Comment on above:Problem List clean-up per request of Phys. EHR CmteHistory of placement of stent for coronary artery disease Karmen Guy Other HysterectomyCharles P House Work Phone: Total colonoscopyCharles P House Work Phone: Plan of Treatment DateCare ActivityDetailAuthorStart: 22-28-3618Wsjdyggaa for malignant neoplasm of cervixNOCT HealthcareStart: 04-21-2025 End: 82-44-5606Foolpoe encounter ugvkqmdmk37/11/2025 3:30 PM EST Office Visit [facility] [address] [facility] [address] [place] [phone] Elfego Mclean, DO [address] [place] [address] [facility] CenterStart: 63-53-2104Kuglcxavw for malignant neoplasm of cervixDayton Children's HospitalStmarshalltown: 09-27-1425Jgbccbsvz for malignant neoplasm of breastMammogramNOMS HealthcareStart: 02-09-2025 Influenza vaccinationNOCT HealthcareStart: 11-97-0465Bxbnjrutu for malignant neoplasm of colonUnUniversity Hospitals St. John Medical CenterStart: 01-07-2025 End: 65-46-1004Tuvycpl encounter ysirfwdwe83/30/2025 3:45 PM EDT Office Visit [facility] [place] [address] [place] [phone] Kilo Beasley, DO [address] [place] [address] [facility] ENT TANIKAYStart: 12-08-2024 End: 32-30-3221Oskwmow encounter muhwsruzu70/30/2025 3:45 PM EDT Office Visit [facility] [place] [address] [place] [phone] Kilo Beasley, DO [address] [place] [address] [facility] ENT TANIKAYStart: 93-88-3988DfamyxuosAdena Pike Medical Centertart: 16-55-6058IplygrogjAdena Pike Medical Centertart: 77-76-2648MbcilfljzAdena Pike Medical Centertart: 11-27-2024 End: 12-51-2856Gjphqfy encounter xwrqosgdj58/19/2025 11:00 AM EDT Office Visit [facility] [place] [address] [address] [place] [address] Destiny Anders NP [address] [place] [address] CHETAN SAGASTUMEYStart: 81-39-2114PorgzjrlyAdena Pike Medical Centertart: 09-03-2024 End: 98-35-5082Upakepk encounter diciwaujm92/26/2025 3:00 PM EDT Office Visit CORTNEY [place] [address] [place] [phone] Kilo Beasley, DO [address] [place] [address] ALMA (obstructive sleep apnea)[facility] ENT SANDUSKYComment on above:ALMA (obstructive sleep apnea)Start: 08-28-2024 End: 14-83-6448Tbnleai encounter ndgrbesvd10/20/2025 2:40 PM EDT Office Visit CHETAN KUHN [address] [place] [address] Destiny Anders NP [address] [place], [place] CHETAN ROBINtart: 79-95-1271DQ Brain WO contrastAdena Pike Medical Centertart: 27-19-9382MSM of headMR head/brain wo [facility] Centertart: 08-06-2024 End: 65-98-9329Tngcpik encounter qwkfsdysl82/26/2025 9:00 AM EST Procedure Visit CHETAN COREAUSKY [address] [address] [place] [address] Hui Vásquez DO [address] [place], [place] [address] CHETAN SAGASTUMEYStart: 07-31-2024 End: 54-30-4031PB Brain WO contrastMR brain wo contrast Imaging Routine Numbness and tingling Expected: 07/31/2024 (Approximate), Expires: 07/31/2025NOCT HealthcareComment on above:Expected: 07/31/2024 (Approximate), Expires: 07/31/2025Start: 07-31-2024 End: 03-62-3434Hvgfnnv encounter procedureNOMS [place] STATE ROUTEComment on above:ArrivedStart: 05-28-2024 End: 30-10-3672FA Brain WO contrastMR brain wo contrast Imaging Routine Transient ischemic attack Numbness and tingling Expected: 05/28/2024 (Approximate), Expires: 05/28/2025N[facility]S [facility] Work Phone: comment on above:Expected: 05/28/2024 (Approximate), Expires: 05/28/2025Start: 05-28-2024 End: 02-68-1309Visgsdd encounter gstyxidif72/18/2024 10:20 AM EST Office Visit CORTNEY [address] [place] [address] Destiny Anders NP [address] [place], [place] ArrivedNOMS [place] STATE ROUTEComment on above: ArrivedStart: 05-27-2024 End: 34-58-8058Pgbukye encounter bmwaitgxg71/17/2024 1:20 PM EST Office Visit NOMRicardo KUHN [facility] [address] [place] [phone] Destiny Anders NP [address] [place], [place] [facility]ITALRic[facility] ROUTEStart: 70-34-7799DefnhapaqAdena Pike Medical Centertart: 78-51-1267Cqzntiuwp for malignant neoplasm of breastParadise Valley HospitalogramPike County Memorial HospitalStart: 06-58-8210EXLAB-19 Vaccine ( season)COVID-19 Vaccine ()[facility] Start: 11-46-1553Aqvvyupeg vaccinationDayton Children's HospitalStart: 02-05-2024 End: 17-15-3995Ytwrcov encounter oziqvseja86/27/2024 10:40 AM EDT Office Visit NOMRicardo KUHN [facility] [address] [facility] [address] [place] [address] Destiny Anders NP [address] [facility] [address] [place] [facility] HOSPITALRicardo K[facility]N [facility] ROUTEStart: 75-25-1350EDJ, Provider: Elfego Mclean, Status: Miguel, Time: 9:00 AMFUV, Provider: Elfego Mclean, Status: Pen, Time: 9:00 [facility] 250 DO Work Phone: Start: 12-05-2023 End: 96-13-4656Rwczbrv encounter etbrsijex64/26/2024 9:00 AM EDT Office Visit [address] [place] [address] Elfego Mclean S, DO [address] [place] [address] [facility] CenterStart: 32-21-6007GXLKDO MIC, Provider: [place] HHVI NUCLEAR 01,[id number], Status: Pen, Time: 11:30 AMSTRESS MIC, Provider: [place] HHVI NUCLEAR ,[id number], Status: Pen, Time: 11:30 AM- [facility] 250 DO Work Phone: Start: 29-23-9646COOWK-19 Vaccine ( season) COVID-19 Vaccine ()[facility] HospitalStart: 59-46-6903Iywumqlj identified in Urine by CultureUrine CultureAdena Pike Medical Centertart: 21-63-6523PJL, Provider: Elfego Mclean, Status: Pen, Time: 9:50 AMFUV, Provider: Elfego Mclean, Status: Pen, Time: 9:50 AMWinona [facility] Hospital 250 DO Work Phone: Start: 87-89-5312Tstmy panelAdena Pike Medical Centertart: 07-03-2022 End: 04-89-3520IjidrhaogAdena Pike Medical Centertart: 25-13-1222Bdmafjgv therapy procedureAdena Pike Medical Centertart: 75-89-2854Jdaqxwhn to occupational therapistAdena Pike Medical Centertart: 64-38-5663Gqhprenk to speech and language therapy serviceAdena Pike Medical Centertart: 41-46-0223Cgnsuxtd admissionAdena Pike Medical Centertart: 07-02-2022 MRI of headMR head/brain wo [facility] CenterStart: 40-39-5799Zfvcmxvg to neurologistPromedica Defiance Regional Hospital CenterStart: 67-52-8468XxurldeknPromedica Defiance Regional Hospital CenterStart: 11-62-8381JS angiography of headPromedica Defiance Regional Hospital CenterStart: 86-02-7865XE angiography of neck vesselsAdena Pike Medical Centertart: 38-90-0697KN Head WO contrast Adena P[facility] Medical Centertart: 99-27-7882YC of head without contrastCT head stroke alert wo [facility] Centertart: 70-12-5492Klcuc chest X-rayXR chest 1V portablePromedica Defiance Regional Hospital CenterStart: 76-48-6282UO Chest Single viewAdena Pike Medical Centertart: 07-02-2022 Bacteria identified in Urine by CultureUrine CultureAdena Pike Medical Centertart: 97-79-4766Lmqou cultureUrine CultureAdena Pike Medical Centertart: 09-65-1449ZGTCCU MIC, Provider: [place] HHVI NUCLEAR 01,[id number], Status: Pen, Time: 11:00 [facility]MSPRES[facility], Provider: [place] HHVI NUCLEAR 01,[id number], Status: Pen, Time: 11:00 AMMP-[facility] 250 DO Work Phone: Start: 68-67-9182RIT, Provider: Jerome Michel, Status: Pen, Time: 3:30 PMFUV, Provider: Jerome Michel, Status: Pen, Time: 3:30 PMMP-[facility] 250 DO Work Phone: Start: 95-82-7914VMB, Provider: Jerome Michel, Status: Pen, Time: 3:30 PMFUV, Provider: Jerome Michel, Status: Pen, Time: 3:30 PMMP-[facility] 250 DO Work Phone: Start: 05-33-3666DTH, Provider: Elfego Mclean, Status: Pen, Time: 10:50 AMFUV, Provider: Elfego Mclean, Status: Pen, Time: 10:50 AMMP-[facility] 250 DO Work Phone: Start: 12-34-1628IWF, Provider: Elfego Mclean, Status: Pen, Time: 10:10 AMFUV, Provider: Elfego Mclean, Status: Pen, Time: 10:10 AMMP-[facility] 250 DO Work Phone: Start: 41-34-6873Vqacli Vaccines (1 of 2)Zoster Vaccines (1 of 2)[facility]: 37-53-5399Imqztwqzn for malignant neoplasm of breastMammogramUnChillicothe VA Medical Center: 20-83-7994Mksswsqzw for malignant neoplasm of cervixHPV/CotestPike County Memorial Hospital Start: 15-99-3687HGvZ/Tdap/Td Vaccines (1 - Tdap)DTaP/Tdap/Td Vaccines (1 - Tdap)[facility]: 48-49-9116Nnqiscrkd for malignant neoplasm of cervixHPV/CotestUnChillicothe VA Medical Center: 1989 Hepatitis B Vaccines (1 of 3 - 19+ 3-dose series)Hepatitis B Vaccines (1 of 3 - 19+ 3-dose series)[facility]: 50-38-0021Ypsxp screening for proteinDiabetes: Urine Protein ScreeningGlenbeigh Hospital: 84-60-0742Ryvoxwyex C screeningHepatitis C ScreeningUnChillicothe VA Medical Center: 38-00-5123Qihdvifr foot examinationDiabetes: Foot ExamUnChillicothe VA Medical Center: 71-98-1633Zkjoaqth screening Diabetes: Retinopathy ScreeningGlenbeigh Hospital: 87-85-6336Gsjmbitnycta Vaccine: Pediatrics (0 to 5 Years) and At-Risk Patients (6 to 64 Years) (1 of 2 - PCV)Pneumococcal Vaccine: Pediatrics (0 to 5 Years) and At-Risk Patients (6 to 64 Years) (1 of 2 - PCV)[facility]: 83-58-3629CGY Vaccines (1 of 1 - Standard series)MMR Vaccines (1 of 1 - Standard series)[facility]: 1970 Hemoglobin A1c measurementDiabetes: Hemoglobin E9FIgnjvnceyjChillicothe VA Medical Center: 14-41-7194RBI screeningHIV ScreeningUnChillicothe VA Medical Center: 80-84-3586Rtpxz panelLipid PanelUnChillicothe VA Medical Center: 87-44-7702Whdzmteuw for malignant neoplasm of colonUnChillicothe VA Medical Center: 55-94-1364Uooyim Adult PhysicalYearly Adult PhysicalUnUniversity Hospitals St. John Medical CenterComprehensive metabolic 2000 panel - Serum or PlasmaSelect Medical Cleveland Clinic Rehabilitation Hospital, BeachwoodEMG 2 ExtremitiesEMG 2 Extremities Neurology Routine Paresthesia of right arm Ordered: 07/31/2024NOCT Healthcare Work Phone: comment on above:Ordered: 07/31/2024Helicobacter pylori Ag [Presence] in Stool by ImmunoassaySelect Medical Cleveland Clinic Rehabilitation Hospital, Beachwood Patient EducationPromedica Defiance Regional Hospital Ctr Work Phone: Patient referralPromedica Defiance Regional Hospital Ctr Work Phone: [facility] Immunizations Immunization DateImmunizationNotesCare YnurbfebZgrmlyag06-64-5611Tvyhzyi COVID- 19 Vaccine 100 MCG/0.5ML Intramuscular SuspensionCharles P House Work Phone: [phone]-Exctf [facility] 250 DO Work Phone: [phone] bad don't usePeFuelFilmy Vericept Other [place] SocialDiabetes Other 03-231813-15-2702nyi bad don't usePeFuelFilmy Vericept Other [facility] Payers DatePayer CategoryPayerPolicy [id number] Member Subscriber Plan / Payer (Effective 2023-Present) Name: Shefali Tillman Relation to Subscriber: Self Name: Shefali Tillman PayerID: Not on file Type: Not on file Address: [place] [id number]hChilton Medical Center CareALEDA E. [facility] Member Subscriber Plan / Payer (Effective 2023-Present) Name: Shefali Tillman Relation to Subscriber: Self Name: Shefali Tillman Payer ID: [id number] (NAIC) Type: Not on file Address: [address] [place], [place] [id number] 05-39-4800Lygmiqh507534Smphhhn85-41-3024PkttqhlVMX90[id number] 2.16.840.1.003355.3.57[id number] 2.840.1.793263.3.57[id number] 2.16840.1.103200.3.57[id number] 2.840.1.605659.3.579.[id number] 2.840.1.268947.3.57[id number] 2.840.1.731024.3.579.[id number] 2.840.1.967150.3.579.2.74088-58-7931Kraaucm6583712 2.840.1.781858.3.579.[id number] 2.840.1.023864.3.579.2.[id number] 2.840.1.096157.3.57[id number] 2.840.1.489688.3.579.2.[id number] 2.840.1.157720.3.579.2.912531-66-3474Xnjcclz0831715 2.840.1.245678.3.579.2.221595-90-1534Gnfbgdt1576701 2..1.656429.3.579.[id number] 2..1.926897.3.579.2.154199-06-2757Uodvrwg9360177 2..1.684850.3.579.2.442107-32-7712Shboedx1235759 2..1.000831.3.579.2.405113-66-6381Yshnyxj5901352 2..1.477473.3.579.2.838295-89-9797Mbxgyct4981018 2..1.631715.3.579.2.435771-99-2762Vjcoawz4660256 2..1.099379.3.579.2.51[id number] 2..1.157031.3.579.2.437685-86-2506Rfiq-mqf vi15143d-6514-71jx-21o2-35qv8477[id number] 2..1.912[id number] 2..1.088636.3.579.2.531 Krxbznw76035070 2..1.023754.3.579.2.599Fkpvxnb53599237 2..1.576843.3.579.2.470Vjjjpke66038686 2..1.311895.3.579.2.531 Vivhmuo11082738 2.0.1.254000.3.579.2.892Aajktqi63022481 2.0.1.014121.3.579.2.433Irmqnmk85138807 2.16.840.1.689259.3.579.2.531 Social History DateTypeDetailFacilityStart: 08-20-2023 End: 39-82-9215Frmyaf alcohol useSocial alcohol useMP-[facility] 250 DO Work Phone: Comment on above:SMOKES ABOUT 1 PPD;Start: 08-20-2023 End: 28-86-3437Pda Assigned At [facility] SocialDiabetes Other Start: 07-02-2022 End: 25-07-1131Jtjlnrb smoking status NHISSmoker (finding)A[facility] Medical Centertart: 95-47-9363Hdo Assigned At BirthFemalToledo Hospitaltart: 07-03-2022 End: 62-97-6403Velzetv smoking status NHISCurrent some day smokerAdena Pike Medical Centertart: 08-20-2023 End: 15-31-3783Yjxywvv smoking status NHISSmokes tobacco dailyUnUniversity Hospitals St. John Medical Center Work Phone: History of tobacco useCigarette SmokerUnUniversity Hospitals St. John Medical Center Work Phone: Start: 08-20-2023 End: 47-02-5626Zamjehywn beverage intakeCurrent drinker of alcohol (finding) [facility] Work Phone: Start: 69-86-9729Omigual CommentsocialUnUniversity Hospitals St. John Medical Center Work Phone: Start: 19-89-3771Fij assigned at birthNot on file [facility] Work Phone: Start: 11-11-2023 End: 66-82-8229Zhokukcs to SARS-CoV-2 (event)Not sureDayton Children's HospitalStart: 50-77-4566Wabakzy use and exposureSmokeless tobacco non-user [facility] Work Phone: Start: 04-18-2024 End: 60-70-1651IwtIlzazg (finding)[facility] Centertart: 47-61-3445Lzhpnxx smoking status NHISEx-smokerNOMS HealthcareHow often to you have a drink containing alcohol?2-3 time sa weekNOMS HealthcareHow many standard drinks containing alcohol do you have on a typical day?3 or 4NOMS HealthcareHow often do you have 6 or more drinks on 1 occasion?Less than monthlyNOMS HealthcareStart: 81-56-1855Mvulqng CommentCaffeine: 1-2 cups/day coffeeNOCT HealthcareStart: 01-52-4611VejTypnhaYCJU Healthcare Medical Equipment Procedure CodeEquipment CodeEquipment Original TextEquipment IdentifierDates Implantation of hypoglossal nerve stimulator ()[id number] FDAStart: 55-28-8014Qhckfaeskrjt of hypoglossal nerve stimulatorImplantable sleep apnoea treatment system, respiration-sensing()[id number] FDAStart: 11-28-2024 Implantation of hypoglossal nerve stimulator ()[id number] FDAStart: 53-40-3914Fiyx-eluting coronary artery stent, lje-mjbcmbjknzjyo-ahzwrfc-coated ()[id number] FDAStart: 24-95-4253Kavjliu artery closure plug/patch, synthetic polymer()[id number] FDAStart: 07-01-2019 Goals DatePatient GoalDesired Activity/State Functional Status IabxUrdabvjktcDowdtyOmmtepys16-38-9415Tnghiqvppe statusPatient at Baseline [facility] Work Phone: Mental Status UqrcUjwxbhovzcOzcdcgRazkxxnl83-94-1643Oxrrlbxgj functionCognitive Status [facility]Ohio[facility] Work Phone: Clinical Notes 2019 to 01-15-2025 Note Date & QpzyCbppRdzhjjeb34-19-5895 Evaluation note* Diagnosis Onset Date Resolution Status Admit Date ALMA (obstructive sleep apnea) acuteAugust 2024 2:55pm [facility] Work Phone: 1(899) 765-908308-07-2025 Evaluation note* Diagnosis Onset Date Resolution Status Admit Date ALMA (obstructive sleep apnea) acuteAugust 2024 2:55pmParesthesiasacuteAugust 2024 10:40amTIA (transient ischemic attack)acuteAugust 2024 10:40am [facility] Work Phone: 1(722) 588-662508-07-2025 Evaluation note* Diagnosis Onset Date Resolution Status Admit Date ALMA (obstructive sleep apnea) acuteAugust 2024 2:55pmParesthesiasacuteAugust 2024 10:40amTIA (transient ischemic attack)acuteAugust 2024 10:40amHypersomniaacute February 12, 2025 3:29pmOSA (obstructive sleep apnea)acuteSept2024 3:29pm [facility] Work Phone: 1(994) 567-242108-07-2025 Evaluation note* Diagnosis Onset Date Resolution Status Admit Date ALMA (obstructive sleep apnea) acuteAugust 2024 2:55pmParesthesiasacuteAugust 2024 10:40amTIA (transient ischemic attack)acuteAugust 2024 10:40amHypersomniaacute February 12, 2025 3:29pmOSA (obstructive sleep apnea)acuteSept2024 3:29pmHypersomniaacuteOctober 2024 3:31pmOSA (obstructive sleep apnea)acute March 12, 2025 3:31pmAnxietyacuteOctober 2024 2:47pm [facility] Work Phone: 1(298) 941-635707-30-2025 History of Present illness Narrative* Kilo Beasley, - 01/07/2025 3:45 PM EDT HPI Patient [...] her back as needed documented in this [facility]06-30-2025 History of Present illness Narrative* Kilo Beasley [...] back in a month. documented in this [facility]06-20-2025 Telephone encounter Note* Telephone Encounter - Kilo Beasley DO - 11/28/2024 3:00 PM EDT Need for post op ATB [facility] Cjmklasbxh23-46-9549 Miscellaneous Notes* Telephone Encounter - Kilo Beasley DO - 11/28/2024 3:00 PM EDT Need for post op ATB documented in this [facility]04-28-2025 History of Present illness Narrative* Kilo Beasley [...] 29.0-29.9, adult 04/01/2024 CAD (coronary artery disease) ([facility]) Chest pressure 03/23/2023 Current every day smoker 03/23/2023 CVA (cerebral vascular accident) ([facility]) 10/2013 Decreased libido Diabetes mellitus type II, non insulin dependent ([facility]) 08/20/2023 Early satiety 08/24/2024 Edema 03/23/2023 Fatigue Gastroesophageal reflux 08/24/2024 GERD (gastroesophageal reflux disease) H. pylori infection 03/19/2014 H/O bone density study 09/08/2021 moderate risk/Osteoporsis H/O section H/O total hysterectomy Hormone disorder Hypertension ([facility]) Left breast lump Major depressive disorder, single episode, mild ([facility]) ([facility]) 08/20/2023 Menopausal state CO (myocardial infarction) ([facility]) 07/2013 Myocardial infarction ([facility]) 07/12/2013 PTCA Nicotine dependence Pericarditis 03/23/2023 PSVT (paroxysmal supraventricular tachycardia) ([facility]) 03/23/2023 Rectal bleeding Screening mammogram for breast [...] Elastic Bandages & Supports (Wrist Splint/Cock-Up/Left 2XSm) misc, G56.00, Disp: , Rfl: famotidine (Pepcid) 20 [...] Respiratory Therapy Supplies (CareTouch CPAP Mask Wipes) misc, Auto CPAP Auto CPAP minimum 5cmH2O maximum 79ceC7T dx: G47.30 Q sleep and nap CPAP mask and supplies DX: ALMA, Disp: , Rfl: spironolactone (Aldactone) 2 mg/mL solution, Spironolactone, Disp: , Rfl: Past Surgical History: Procedure Laterality Date BREAST BIOPSY 2011 SECTION, LOW TRANSVERSE 1989 SECTION, LOW TRANSVERSE 2000 CORONARY ANGIOPLASTY WITH STENT PLACEMENT 2013 EGD 2013 HYSTERECTOMY 2003 [place] LAP,CHOLECYSTECTOMY 2013 Social History Socioeconomic History Marital status: Spouse [...] once it is approved documented in this encounterPike County [facility] [id number] History of Present illness Narrative* Kilo Beasley [...] 29.0-29.9, adult 04/01/2024 CAD (coronary artery disease) ([facility]) Chest pressure 03/23/2023 Current every day smoker 03/23/2023 CVA (cerebral vascular accident) ([facility]) 10/2013 Decreased libido Diabetes mellitus type II, non insulin dependent ([facility]) 08/20/2023 Early satiety 08/24/2024 Edema 03/23/2023 Fatigue Gastroesophageal reflux 08/24/2024 GERD (gastroesophageal reflux disease) H. pylori infection 03/19/2014 H/O bone density study 09/08/2021 moderate risk/Osteoporsis H/O section H/O total hysterectomy Hormone disorder Hypertension ([facility] [facility]) Left breast lump Major depressive disorder, single episode, mild ([facility]) ([facility]) 08/20/2023 Menopausal state CO (myocardial infarction) ([facility]) 07/2013 Myocardial infarction ([facility]) 07/12/2013 PTCA Nicotine dependence Pericarditis 03/23/2023 PSVT (paroxysmal supraventricular tachycardia) ([facility]) 03/23/2023 Rectal bleeding Screening mammogram for breast [...] Elastic Bandages & Supports (Wrist Splint/Cock-Up/Left 2XSm) misc, G56.00, Disp: , Rfl: famotidine (Pepcid) 20 [...] Respiratory Therapy Supplies (CareTouch CPAP Mask Wipes) mis, Auto CPAP Auto CPAP minimum 5cmH2O maximum 26zlH4P dx: G47.30 Q sleep and nap CPAP mask and supplies DX: ALMA, Disp: , Rfl: spironolactone (Aldactone) 2 mg/mL solution, Spironolactone, Disp: , Rfl: Past Surgical History: Procedure Laterality Date BREAST BIOPSY 2011 SECTION, LOW TRANSVERSE 1989 SECTION, LOW TRANSVERSE 2000 CORONARY ANGIOPLASTY WITH STENT PLACEMENT 2013 EGD 2013 HYSTERECTOMY 2003 [place] LAP,CHOLECYSTECTOMY 2013 Social History Socioeconomic History Marital status: Spouse [...] and get her scheduled. documented in this [facility]02-26-2025 History of Present illness Narrative* SIMON Brannon - 08/06/2024 9:00 AM EST Images from the original note were not included. 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 No hx of DM. Taking ASA & Plavix. Comments: Procedure was explained to the patient who expressed understanding. Patient appeared to have tolerated the test well despite some discomfort due to the nature of the test. documented in this [facility]02-20-2025 Miscellaneous Notes* Telephone Encounter - Destiny Anders NP - 07/31/2024 12:53 PM EST Please call pt. And let her know that we can move forward with the [facility]. I will put in the referral. You have the paperwork. Thank you. documented in this [facility]02-20-2025 Telephone encounter Note* Telephone Encounter - Destiny Anders NP - 07/31/2024 12:53 PM EST Please call pt. And let her know that we can move forward with the Insp[facility]. I will put in the referral. You have the paperwork. Thank you. [id number] Evaluation note* Diagnosis Onset Date Resolution Status Admit Date Bronchitis acuteJanuary 2024 6:22pmEpicondylitisacuteFebruary 2024 1:31pmRash acuteFebruary 2024 1:31pm [facility] Work Phone: 1(949) 571-167611-08-2024 [place] [id number] EGD/Colonoscopy Procedure Signed Patient: Shefali Tillman MR#: [id number] : 1970 Acct:[id number] Age/Sex: 54 / F Adm Date: 4 Loc: Room: Type: [facility] Attending Dr: Ethan Burt MD Copies to: MD Karmen Hodges APRN, CASTING SUPERVISOR~ EGD & Colonoscopy Date/Provider 04/18/2024 Ethan Burt [...] was slowly withdrawnwith the findings as below. [place] bowel prep score was good. Findings: Cecum: [...] MD 04/18/24 1135 Signed By: 04/18/24 1226 [facility]11-08-2024 [place] [address] Gastroenterology H&P Signed Patient: Shefali Tillman MR#: [id number] : 1970 Acct:[id number] Age/Sex: 54 / F Adm Date: 4 Loc: Room: Type: [facility] Attending Dr: Ethan Burt MD Copies to: MD Karmen Hodges APRN, CNP~ Date of Service: 04/18/2024 HISTORY & PHYSICAL: [...] MD 04/18/24 1132 Signed By: 04/18/24 1135 [facility]10-22-2024 History of Present illness Narrative * Elfego Mclean, DO - 04/01/2024 11:20 AM EDT Subjective Shefali [...] injections She still smoking we continue to field counsel her for 5 minutes today on smoking [...] normal. Judgment: Judgment normal. Allergies Penicillins and Subbhmu-ycs-gpr reductase inhibitors Current Medications Current Outpatient Medications: [...] tablet, Rfl: 3 Assessment/Plan 1. Atherosclerosis of nightmute coronary artery of nightmute heart without angina pectoris 2. Status post [...] my direction and personally dictated by me. Naderave reviewed the chart and agree that the record accurately reflects my personal performance of the history, physical exam, discussion and plan. [facility] Work Phone: 1(559) 734-959210-22-2024 Instructions* Patient Instructions* Kathy Churchill LPN - [...] time of your visit. [facility] Work Phone: 1(989) 661-998508-27-2024 History of Present illness Narrative* Destiny Anders NP - 02/05/2024 10:40 AM EDT Images from [...] Subjective Patient got her labs done at [facility]. Patient states the numbness and tingling is [...] Anxiety Frank esophagus CAD (coronary artery disease) ([facility]) CVA (cerebral vascular accident) ([facility]) 10/2013 Decreased libido Fatigue GERD (gastroesophageal reflux disease) H/O bone density study 09/08/2021 moderate risk/Osteoporsis H/O section H/O total hysterectomy Hormone disorder Hypertension ([facility]) Left breast lump Menopausal state CO (myocardial infarction) ([facility]) 07/2013 Nicotine dependence Rectal bleeding Screening mammogram for breast cancer TIA (transient ischemic attack) 10/2013; 06/2022 Vaginal dryness, menopausal Past Surgical History: Procedure Laterality Date BREAST BIOPSY 2011 SECTION, LOW TRANSVERSE 1989 SECTION, LOW TRANSVERSE 2000 CORONARY ANGIOPLASTY WITH STENT PLACEMENT 2013 EGD 2013 HYSTERECTOMY 2003 [place] LAP,CHOLECYSTECTOMY 2013 Family History Problem Relation Name [...] year old female that presented to the [facility] 07/02/2022 with fairly sudden onset left [...] was counselled on the risk of stroke, CO, and suddendeath with ALMA, along with the [...] to clinic: 3-4 months documented in this encounterP[facility] HospitalPwldfdfmxb54-40-2098 Evaluation note* Diagnosis Onset Date Resolution Status Admit Date Fatigue acuteAugust 2023 10:57amHeadacheacuteAugust 2023 10:57amNeck pain acuteAugust 2023 10:57amOnychomycosisacuteAugust 2023 10:57amTick biteacuteAugust 2023 10:57am [facility] Work Phone: 1(874) 470-144611-27-2023 Evaluation note* Encounter Date Diagnosis Assessment Notes Treatment Notes Treatment Clinical Notes Apr, Reactive depression (ICD-10 - F3 2.9) Apr,astroesophageal reflux disease without esophagitis (ICD-10 - K21.9) [facility] Other 08-11-2023 Evaluation note* Encounter Date Diagnosis [...] are resolved now. Jan,therosclerotic heart disease of nightmute coronary artery without angina pectoris (ICD-10 - I25.10) Jan,oronary atherosclerosis due to lipid rich plaque (ICD-10 - I25.83) [facility] Other 08-11-2023 Evaluation note* Encounter Date Diagnosis [...] are resolved now. Jan,therosclerotic heart disease of nightm[place] coronary artery without angina pectoris (ICD-10 - [...] and willingness to quit at each appointment. [facility] Other 07-28-2023 Evaluation note* Encounter Date Diagnosis [...] given. Patient verbalized understanding of treatment plan. [facility] Other 03-28-2023 Evaluation note* Encounter Date Diagnosis [...] understanding and is agreeable to treatment plan [place] [facility] Other 01-23-2023 Progress note Author Savanna Orellana [facility] July 03, 2022 3:50pmNote Date/TimeJanuary 2022 11:40[place] [address] Hospitalist Progress Note Signed with Addenda Patient: Shefali Tillman MR#: [id number] : 1970 Acct:[id number] Age/Sex: 52 / F Adm Date: 3 Loc: Room: [address] [place] [address] Type: ADM INOo Attending Dr: Savanna Orellana [...] <Electronically signed by Savanna Orellana MD> 07/03/22 1549 Date of Service: 07/03/2022 Subjective Subjective Narrative: [...] by Savanna Orellana MD> 07/03/22 1140 [facility] Work Phone: 1(706) 474-259101-23-2023 History and physical note Author Shari Kang [facility] July 02, 2022 10:34pmNote Date/TimeJanuary 2022 9:50pmLeah [place] [id number] Hospitalist H&P Signed with Dean Patient: Shefali Tillman MR#: [id number] : 1970 Acct:[id number] Age/Sex: 52 / F Adm Date: 3 Loc: 3T Room: [address] [place] [address] Type: ADM IN Attending Dr: Shari Kang [...] 1.Case was discussed with telestroke team in [place] by ER and tPA was not recommended [...] <Electronically signed by Shari Kang MD> 07/02/222233 [facility] DATE OF EXAMINATION: 07/02/22 HISTORY OF [...] negative unless noted below or in HPI [facility] Attestation Statement: The following information was validated [...] % (Auto) 30.5 % (.) 07/02/22 19:14 [place] % (Auto) 14.0 % (.) 07/02/22 19:14 Eos % (Auto) 6.4 % (.) 07/02/22 19:14 Baso % (Auto) 0.8 % (.) 07/02/22 19:14 Nucleat RBC Rel Count 0.2 /100 WBC (0-0.5) 07/02/22 19:14 Neut # (Auto) 5.2 x10E3/uL (1.8-7.7) 07/02/22 19:14 Lymph # (Auto) 3.3 x10E3/uL (1.00-4.8) 07/02/22 19:14 [place] # (Auto) 1.5 x10E3/uL (0.0-0.8) H 07/02/22 [...] pH 5.5 (5.0-9.0) 07/02/22 19:02 Ur Specific [place] 1.003 (1.001-1.030) 07/02/22 19:02 Urine Protein Negative [...] <Electronically signed by DO SHAHBAZ Kendall> 07/02/222149 [facility] Work Phone: 1(679) 926-557511-04-2022 Evaluation note* Encounter Date Diagnosis Assessment Notes [...] stable condition Apr,ore throat (ICD-10 - J02.9) [facility] Other 03-04-2022 Evaluation note* Encounter Date Diagnosis [...] care instructions given in writting by [facility] Care At Home document. Due to infection control protocols for COVID-19 virus, direct physical contact with patient was limited to only the absolute essential needed assessments. [facility] Other 08-21-2019 History and physical note Author Shari Kang [facility] July 02, 2022 10:34pmNote Date/TimeJanuary 2022 9:50pm[place] [address] Hospitalist H&P Signed with Addenda Patient: Shefali Tillman MR#: [id number] : 1970 Acct:[id number] Age/Sex: 52 / F Adm Date: 3 Loc: Room: [address] [place] [address] Type: ADM IN Attending Dr: Shari Kang [...] 1.Case was discussed with telestroke team in [place] by ER and tPA was not recommended [...] negative unless noted below or in HPI [facility] Attestation Statement: The following information was validated [...] % (Auto) 30.5 % (.) 07/02/22 19:14 [place] % (Auto) 14.0 % (.) 07/02/22 19:14 Eos % (Auto) 6.4 % (.) 07/02/22 19:14 Baso % (Auto) 0.8 % (.) 07/02/22 19:14 Nucleat RBC Rel Count 0.2 /100 WBC (0-0.5) 07/02/22 19:14 Neut # (Auto) 5.2 x10E3/uL (1.8-7.7) 07/02/22 19:14 Lymph # (Auto) 3.3 x10E3/uL (1.00-4.8) 07/02/22 19:14 [place] # (Auto) 1.5 x10E3/uL (0.0-0.8) H 07/02/22 [...] pH 5.5 (5.0-9.0) 07/02/22 19:02 Ur Specific [place] 1.003 (1.001-1.030) 07/02/22 19:02 Urine Protein Negative [...] <Electronically signed by DO SHAHBAZ Kendall> 07/02/222149 [facility] Work Phone: Consult note Author Rajesh Hurd [facility] July 03, 2022 3:40pmNote Date/TimeJanuary 2022 3:40pm[place] [address] Neurology Consult Note Signed Patient: Shefali Tillman MR#: [id number] : 1970 Acct:[id number] Age/Sex: 52 / F Adm Date: 3 Loc: 3T Room: [address] [place] [address] Type: ADM INOo Attending Dr: Savanna Orellana MD Copies to: DO Osiel Ellington DO Obaydah M Daromar, MD~ HPI Consult Date: 07/03/22 Therapeutic Case Manager: Sam Vargas Review of Systems ENT Ears, [...] Yohannes Ascencio M.D.07/03/2022 8:02 AM Dictation Location: [place] [address] 07/02/22 19:13 IMPRESSION: No acute intracranial findings. Preliminary findings given 07/02/22 at 1930 hours Impression dictated by: Yohannes Ascencio M.D.07/03/2022 8:02 AM Dictation Location: [place] [address] Head CTA 07/02/22 19:13 IMPRESSION: No occlusion, critical stenosis or dissection of the extracranial orintracranial circulation. No intracranial aneurysm. Impression dictated by: Yohannes Ascencio M.D.07/03/2022 8:06 AM Dictation Location: [place] [address] Assessment/Plan (1) Left sided numbness: Assessment/Problem Details: [...] in her foot. She had similar symptoms [id number] but was not given a clear diagnosis. [...] <Electronically signed by Rajesh Hurd DO> 07/03/22 1540 [facility] Work Phone: Evaluation note* Diagnosis Onset Date Resolution Status Current smoker acuteLeft sided numbnessacuteHypertensionchronic [facility] Work Phone: Evaluation note* Diagnosis Onset Date Resolution Status Current smoker acuteLeft sided numbnessacuteHyperlipidemiachronicHypertensionBlanchard [facility] Work Phone: Evaluation noteNo [facility] [facility] Other Evaluation note* Diagnosis Atherosclerosis of [place] coronary artery, unspecified whether angina present, unspecified whether nightm[place] or transplanted heart documented in this encounter [facility] Work Phone: Evaluation note* Diagnosis Onset Date Resolution Status Fatigue acuteHeadacheacuteNeck painacuteTick biteacute [facility] Work Phone: Evaluation note* Diagnosis Atherosclerosis of [place] coronary artery of nightm[place] heart without angina pectoris Status post angioplasty Postsurgical percutaneous transluminal coronary angioplasty status TIA (transient ischemic attack) Unspecified transient cerebral ischemia Body mass index (BMI) 29.0-29.9, adult Current every day smoker Hyperlipidemia, unspecified hyperlipidemia type documented in this encounter [facility] Work Phone: Evaluation note* Diagnosis ALMA (obstructive sleep apnea)- Primary Obstructive sleep apnea (adult) (pediatric) Complicated migraine (CMS/HCC) Migraine, unspecified, without mention of intractable migraine without mention of status migrainosus Paresthesia of right arm Disturbance of skin sensation Paresthesia of foot, bilateral Carpal tunnel syndrome, left Carpal tunnel syndrome Transient ischemic attack Unspecified transient cerebral ischemia documented in this encounter [facility] HealthcareEvaluation note* Diagnosis ALMA (obstructive sleep apnea)- Primary Obstructive sleep apnea (adult) (pediatric) Complicated migraine (CMS/HCC) Migraine, unspecified, without mention of intractable migraine without mention of status migrainosus Transient ischemic attack Unspecified transient cerebral ischemia Numbness and tingling Disturbance of skin sensation Carpal tunnel syndrome, left Carpal tunnel syndrome documented in this encounter [facility] HealthcareEvaluation noteNo assessment information availableWayne Hospital Work Phone: Evaluation note* Diagnosis ALMA (obstructive sleep apnea)- Primary Obstructive sleep apnea (adult) (pediatric) Paresthesia of right arm Disturbance of skin sensation Transient ischemic attack Unspecified transient cerebral ischemia Complicated migraine (CMS/HCC) Migraine, unspecified, without mention of intractable migraine without mention of status migrainosus Numbness and tingling Disturbance of skin sensation Pure hypercholesterolemia (CMS/HCC) Pure hypercholesterolemia documented in this encounter [facility] HealthcareEvaluation note* Diagnosis ALMA (obstructive sleep apnea)- Primary Obstructive sleep apnea (adult) (pediatric) documented in this encounter [facility] HealthcareEvaluation note* Diagnosis Arm pain, left- Primary Pain in soft tissues of limb Numbness and tingling Disturbance of skin sensation documented in this encounter [facility] HealthcareEvaluation note* Diagnosis Intolerance of continuous positive airway pressure (CPAP) ventilation- Primary ALMA (obstructive sleep apnea) Obstructive sleep apnea (adult) (pediatric) documented in this encounter [facility] HealthcareEvaluation note* Diagnosis Obstructive sleep apnea- Primary Obstructive sleep apnea (adult) (pediatric) Intolerance of continuous positive airway pressure (CPAP) ventilation documented in this encounter [facility] HealthcareEvaluation note* Diagnosis ALMA (obstructive sleep apnea)- Primary Obstructive sleep apnea (adult) (pediatric) documented in this encounter [facility] HealthcareEvaluation note* Diagnosis Obstructive sleep apnea- Primary Obstructive sleep apnea (adult) (pediatric) documented in this encounter [facility] HealthcareEvaluation note* Diagnosis ALMA (obstructive sleep apnea)- Primary Obstructive sleep apnea (adult) (pediatric) documented in this encounter [facility] HealthcareEvaluation note* Diagnosis Onset Date Resolution Status Admit Date ALMA (obstructive sleep apnea) acuteAugust 2024 2:55pm [facility] Work Phone: History and physical note Author Ethan Burt [facility]wood[facility] Date/TimeNovember 2023 11:35am [address] [place] [address] Gastroenterology H&P Signed Patient: Shefali Tillman MR#: [id number] : 1970 Acct:[id number] Age/Sex: 54 / F Adm Date: 4 Loc: Room: Type: [facility] Attending Dr: Ethan Burt MD Copies to: MD Karmen Hodges APRN, CASTING SUPERVISOR~ Date of Service: 04/18/2024 HISTORY & PHYSICAL: [...] <Electronically signed by Ethan Burt MD> 04/18/24 1135 [facility] Work Phone: History general Narrative - Reported* Type Description Date Medical History stroke Medical History2 heart attackSMedical HistoryhyperlipidemiaSurgical HistoryC [id number] & 2000Surgical Ohcbzuhbricfuglsorz8255Kfmauwxe Historypartial xpybxoggjlwo9385Msqatinm Historygall ryqgble6607Kfdvqbss SfnntuzSvskxm9546 & 2020Hospitalization HistorySee Above [facility] Other Hislvif general Narrative - Reported* Type Description Date Medical History stroke Medical History2 heart attackSMedical HistoryhyperlipidemiaSurgical HistoryC wspzjfp8575 & 2000Surgical Jttomwvemlcgpmfyxxq7211Mzidzlhw Historypartial mtxbvvikawki5953Bmjbvhxm Historygall ciecpck6751Pfjylneg HistoryStents cardiac 2014 & 2020Hospitalization HistorySee Above [facility] Other History general Narrative - Reported* Type Description Date Medical History stroke Medical History2 heart attackSMedical HistoryhyperlipidemiaSurgical HistoryC nfytnlb5504 & 2000Surgical Utynbftawtbkbfkyvim5181Dlbkzfvt Historypartial vygskzgwmkgh1620Leipvrxc Historygall rpcmnhc1928Ixliagzo HistoryStents cardiac 2014 & 2020Hospitalization HistorySee AboveHospitalization EyqjhauYJE33/22/2023 [facility] Other Hisuhjo general Narrative - Reported* Type Description Date Medical History stroke Medical History2 heart attackSMedical HistoryhyperlipidemiaSurgical HistoryC olcblns2819 & 2000Surgical Zupgzeqqmqohfccicwx6201Dmyqkovk Historypartial ntkgvlpdtski7661Reifghjt Historygall xppeqxa8435Inyjtpje HistoryStents cardiac 2014 & 2020Hospitalization HistorySee AboveHospitalization QwhkgopJGK22/22/2023 Hospitalization CykpqtrTWT17/2022 [facility] Other History of Present illness Narrative* The [...] medication regimen. She denies medication side effects. [facility] Work Phone: History of Present [...] medication regimen. She denies medication side effects. [facility] 600 DO Work Phone: History of [...] medication regimen. She denies medication side effects. [facility] Work Phone: Hospital Discharge instructions Additional [...] clinic -Try to cut down on smoking [facility] Work Phone: Progress note Author Savanna Orellana [facility] July 03, 2022 11:40amNote Date/TimeJanuary 2022 11:40[place] [address] Hospitalist Progress Note Signed Patient: Shefali Tillman MR#: [id number] : 1970 Acct:[id number] Age/Sex: 52 / F Adm Date: 3 Loc: 3T Room: [address] [place] [address] Type: ADM INOo Attending Dr: Savanna Orellana [...] Administration Flush Spironolactone 100 mg 07/03/22 09:00 01/23/23 08:36 Spironolactone 100 Mg Tablet PO 07/03/23 [...] by Savanna Orellana MD> 07/03/22 1140 [facility] Work Phone: Reason for referral (narrative)No reason for referral information availablePromedica [facility] Work Phone: Summary Purpose Family History Unknown [...] diseaseUnknownmotherHypertensionUnknownbrother Malignant neoplasm of colonUnknown Advance Directives Advance Directive Response Recorded Date/ [...] inspire appt - add per [place] March 12 025 3:31pm Reason for Visit Admit Date [...] inspire appt - add per [place] March 12 025 3:31pm [place] March 24, 2025 [...] By ContactReferred To Contact Diagnoses Atherosclerosis of nightm[place] coronary artery, unspecified whether angina present, unspecified whether nightm[place] or transplanted heart Procedures Stress Test Only Elfego Mclean DO [address] [facility] [address], [address] [address] Referral IDStatusReasonStart DateExpiration DateVisits RequestedVisits [id number]/18/20233/ Additional Source Comments INFORMATION SOURCE (unrecogn ized section and content) DATE CREATED AUTHOR 07/05/2018 [facility] Healthcare DATE CREATED AUTHOR AUTHOR'S ORGANIZ ATION 02/04/2022 [facility] DATE CREATED AUTHOR AUTHOR'S ORGANIZ ATION 03/07/2022 [facility] DATE CREATED AUTHOR AUTHOR'S ORGANIZ ATION 07/04/2022 [facility] DATE CREATED AUTHOR AUTHOR'S ORGANIZ ATION 10/13/2022 [facility] DATE CREATED AUTHOR AUTHOR'S ORGANIZ ATION 11/17/2022 [facility] DATE CREATED AUTHOR AUTHOR'S ORGANIZ ATION 12/29/2023 [facility] DATE CREATED AUTHOR AUTHOR'S ORGANIZ ATION 05/07/2024 [facility] DATE CREATED AUTHOR AUTHOR'S ORGANIZ ATION 01/09/2025 [facility] DATE CREATED AUTHOR AUTHOR'S ORGANIZ ATION 03/17/2025 [facility] DATE CREATED AUTHOR AUTHOR'S ORGANIZ ATION 03/31/2025 [facility] Amb[facility] REASON FOR VISIT (unrecogniz ed section and content) SpecialtyDiagnoses / ProceduresReferred By ContactReferred To Contact Diagnoses Atherosclerosis of nightm[place] coronary artery, unspecified whether angina present, unspecified whether nightm[place] or transplanted heart Procedures Stress Test Only Elfego Mclean, DO [address] [facility], [address] [place] [address] Referral IDStatusReasonStart DateExpiration DateVisits RequestedVisits [id number] yearReason CommentsNumbnessSleep ApneaTransient Ischemic AttackReasonCommentsSleep Apnea Transient Ischemic AttackNumbnessReasonCommentsSleep ApneaNew Patient : [facility] consultSpecialtyDiagnoses / ProceduresReferred By ContactReferred To Contact Otolaryngology Diagnoses ALMA (obstructive sleep apnea) Procedures [place] OFFICE/OUTPATIENT NEW HIGH MDM 60 MINUTES Destiny Anders, ALF [address] [place] [address] Phone: tel: fax: Kilo Beasley, DO [address] [facility] [place] [address] Phone: tel: fax: Referral IDStatusReasonStart DateExpiration DateVisits RequestedVisits [id number] Specialty Services Required /[id number] ApneaS/p InspireReasonCommentsPost-op Post op InspireReasonCommentsPost-op1 month bud [facility] Care Teams (unrecognized sec tion and content) Team Status: Active Member Role Status Dates Osiel Pettit DO Primary Care Provider Active Sachi Mak ProviderActiveShari Kang , JACKIEdmit Provider, Attending ProviderActive Team Status: Active Member Role Status Dates Osiel Pettit DO Primary Care Provider Active Team Status: Inactive Member Role Status Dates Osiel Pettit DO Primary Care Provider Active Sachi Mak ProviderActiveShari Kang , JACKIEdmit Provider ActiveSavanna Orellana MDAttending ProviderActiveRajesh Hurd , Other ProviderActive Team Status: Inactive Member Role Status Dates Osiel Pettit DO Primary Care Provider Active Florin Gilmore ProviderActiveTeam MemberRelationshipSpecialty Start DateEnd Date Osiel Pettit DO PCP - General07/08/19 Team Status: Active Member Role Status Dates Karmen Tovar APRN QUANTITATIVE RESEARCHER-C Primary Care Provider Active Team Status: Inactive Member Role Status Dates Karmen Tovar APRN QUANTITATIVE RESEARCHER-C Primary Care Provider, Attending Provider Active Start: January 28, 2024 End: January 28, 2024Team MemberRelationshipSpecialtyStart DateEnd Date Karmen Tovar APRN-CASTING SUPERVISOR [address] [place] [address] PCP - [facility]04/01/24 Team Status: Active Member Role Status Dates Kramen Tovar APRN QUANTITATIVE RESEARCHER-C Primary Care Provider, Attending Provider Active Start: 2024 Team Status: Inactive Member Role Status Dates Karmen Tovar APRN QUANTITATIVE RESEARCHER-C Primary Care Provider Active Start: April End: April 18, 2024Imad Carmel , MDAttending ProviderActiveStart: April 18, 2024 End: April 18, 2024 Team Status: Active Member Role Status Dates Karmen Tovar APRN QUANTITATIVE RESEARCHER-C Primary Care Provider Active Start: April Imad Carmel , JACKIEttending Provider, Other ProviderActiveStart: April 18, 2024 Team MemberRelationshipSpecialtyStart DateEnd Date Osiel Pettit MD [address] [place] [address] PCP - [facility]12/14/22Team MemberRelationshipSpecialtyStart DateEnd Date Osiel Pettit MD [address] [place] [facility] [address] [facility] - [facility]12/14/22Team MemberRelationshipSpecialtyStart DateEnd Date Osiel Pettit MD [address] [place] [facility] [place] [address] [facility] - [facility]12/14/22Team MemberRelationshipSpecialtyStart DateEnd Date Osiel Pettit MD [address] [place] [facility] [place] [address] [facility] - [facility]12/14/22Team MemberRelationshipSpecialtyStart DateEnd Date Osiel Pettit MD [address] [place] [address] [facility] - [facility]12/14/22 Team Status: Inactive Member Role Status Dates Karmen Tovar APRN QUANTITATIVE RESEARCHER-C Primary Care Provider Active Start: June 19, 2024 End: June 19, 2024Florin Chicas ProviderActiveStart: June 19, 2024 End: June 19, 2024 Team Status: Inactive Member Role Status Dates Karmen Tovar APRN QUANTITATIVE RESEARCHER-C Primary Care Provider, Attending Provider Active Start: July 16, 2024 End: July 16, 2024Team MemberRelationshipSpecialtyStart DateEnd Date Osiel Pettit MD [address] [place] [address] PCP - [facility] Medicine12/14/22 Hui Vásquez DO [address] [place] [address] Referring PhysicianNeurology2Team MemberRelationshipSpecialtyStart DateEnd Osiel Pettit MD [address] [place] [address] PCP - [facility] Medicine12/14/22 Hui Vásquez DO [address] [place] [address] Referring PhysicianNeurology2Team MemberRelationshipSpecialtyStart DateEnd Date Osiel Pettit MD [address] [place] [address] [facility] - [facility]12/14/22 Hui Vásquez DO [address] [place] [address] Referring PhysicianNeurology2Team MemberRelationshipSpecialtyStart DateEnd Date Osiel Pettit MD [address] [place] [address] PCP - GeneralFami Medicine12/14/22 Hui Vásquez DO [address] [place] [address] Referring PhysicianNeurolog07/31/24Team MemberRelationshipSpecialtyStart DateEnd Date Osiel Pettit MD [address] [place] [facility] [place] [address] [facility] - [facility]12/14/22 Hui Vásquez DO [address] [place] [address] Referring PhysicianNeurolog07/31/24 Team Status: Inactive Member Role Status Dates Karmen Tovar APRN QUANTITATIVE RESEARCHER-C Primary Care Provider Active Start: August 18, 2024 End: August 18Florin Macias ProviderActiveStart: August 18, 2024 End: August 18, 2024Team MemberRelationshipSpecialtyStart DateEnd Date Osiel Pettit MD [address] [place] [address] [facility] - [facility] Hui Vásquez DO [address] [place] [address] Referring PhysicianNeurolog07/31/24 Karmen Tovar NP [address] [facility] [place] [address] Family Medicine08/21/24 Destiny Anders NP [address] [place] [phone] Nurse PractitionerNeurology08/21/24 Kilo Morfin MD [address] [place] [address] Referring PhysicianInternal Medicine08/28/24 Kilo Beasley, DO [address] [place] [address] Otolaryngology09/03/24Team MemberRelationshipSpecialtyStart DateEnd Date Osiel Pettit MD [address] [place] [address] PCP - Generalmi Medicine12/14/22 Hui Vásquez DO [address] [phone] Referring PhysicianNeurolog07/31/24 Karmen Tovar NP [address] [place] [address] Family Medicine08/21/24 Destiny Anders NP [address] [phone] Nurse PractitionerNeurology08/21/24 Kilo Morfin MD [address] [place] [address] Referring PhysicianInternal Medicine08/28/24 Kilo Beasley, DO [address] [place] [address] Otolaryngology09/03/24Team MemberRelationshipSpecialtyStart DateEnd Date GermansvilleOsiel MD [address] [place] [address] [facility] - [facility]12/14/22 Hui Vásquez DO [address] [place], [place] [phone] Referring PhysicianNeurolog07/31/24 Karmen Tovar NP [address] [facility] [place], [place] [address] Family Medicine08/21/24 Destiny Anders NP [address] [phone] Nurse PractitionerNeurology08/21/24 Kilo Morfin MD [address] [phone] Referring PhysicianInternal Medicine08/28/24 Kilo Beasley DO [address] [place] [address] Otolaryngology09/03/24Team MemberRelationshipSpecialtyStart DateEnd Date Osiel Pettit MD [address] [place] [address] [facility] - [facility]12/14/22 Hui Vásquez DO [address] [place] [address] Referring PhysicianNeurolog07/31/24 Karmen Tovar NP [address] [place] [address] Family Medicine08/21/24 Destiny Anders NP [address] [phone] Nurse PractitionerNeurology08/21/24 Kilo Morfin MD [address] [phone] Referring PhysicianInternal Medicine08/28/24 Kilo Beasley DO [address] [place] [address] Otolaryngology09/03/24Team MemberRelationshipSpecialtyStart DateEnd Date Osiel Pettit MD [address] [place] [address] PCP - GeneralFamily Medicine12/14/22 Hui Vásquez DO [address] [place], [place] [phone] Referring PhysicianNeurolog07/31/24 Karmen Tovar NP [address] [place] [address] Family Medicine08/21/24 Destiny Anders NP [address] [facility] [place] [address] Nurse PractitionerNeurology08/21/24 Kilo Morfin DO [address] [place] [address] Referring PhysicianInternal Medicine08/28/24 Kilo Beasley DO [address] [place] [address] Otolaryngology09/03/24Team MemberRelationshipSpecialtyStart DateEnd Date Osiel Pettit MD [address] [place] [address] PCP - GeneralFamily Medicine12/14/22 Hui Vásquez DO [address] [place] [address] Referring PhysicianNeurolog07/31/24 Karmen Tovar NP [address] [place] [address] Family Medicine08/21/24 Destiny Anders NP [address] [place] [address] Nurse PractitionerNeurology08/21/24 Kilo Morfin DO [address] [place] [address] Referring PhysicianInternal Medicine08/28/24 Kilo Beasley DO [address] [place] [address] Otolaryngology09/03/24 Team Status: Active Member Role Status Dates Karmen Tovar APRN QUANTITATIVE RESEARCHER-C Primary Care Provider Active Start: October 17, 2024 Ethan Burt MDAttending ProviderActiveStart: October 17, 2024 Team Status: Inactive Member Role Status Dates Karmen Tovar APRN QUANTITATIVE RESEARCHER-C Primary Care Provider Active Start: October 24, 2024 End: October 24, 2024Imabennett Burt MDAttending ProviderActiveStart: October 24, 2024 End: October 24, 2024 Team Status: Active Member Role Status Dates Karmen Tovar APRN QUANTITATIVE RESEARCHER-C Primary Care Provider Active Start: October 24, 2024 Ethan Burt MDAttending ProviderActiveStart: October 24, 2024 Galdino Hodges ProviderActiveStart: October 24, 2024 Team Status: Active Member Role Status Dates Karmen Tovar APRN QUANTITATIVE RESEARCHER-C Primary Care Provider Active Start: October 27, 2024 Shefali Obrien CMAAttending ProviderActiveStart: October 27, 2024 Team Status: Inactive Member Role Status Dates Karmen Tovar APRN QUANTITATIVE RESEARCHER-C Primary Care Provider Active Start: November 21, 2024 End: November 21enwaldemar Beasley , DOAttending ProviderActiveStart: November 21, 2024 End: November 21, 2024 Team Status: Inactive Member Role Status Dates Karmen Tovar APRN QUANTITATIVE RESEARCHER-C Primary Care Provider Active Start: November 28, 2024 End: November 28enwaldemar Beasley , DOAttending ProviderActiveStart: November 28, 2024 End: November 28, 2024 Team Status: Inactive Member Role Status Dates Karmen Tovar APRN QUANTITATIVE RESEARCHER-C Primary Care Provider Active Start: December 03, 2024 End: December 03, 2024Harlan Meredith ProviderActiveStart: December 03, 2024 End: December 03, 2024 Team Status: Active Member Role Status Dates Karmen Tovar APRN QUANTITATIVE RESEARCHER-C Primary Care Provider Active Start: December 04, 2024 Yolanda Zimmerman CMAAttending ProviderActiveStart: December 04, 2024 Team Status: Inactive Member Role Status Dates Karmen Tovar APRN QUANTITATIVE RESEARCHER-C Primary Care Provider Active Start: December 04, 2024 End: December 04, 2024Imad Asaad , MDAttending ProviderActiveStart: December 04, 2024 End: December 04, 2024Team MemberRelationshipSpecialtyStart DateEnd Date Osiel Pettit MD [address] [place] [address] PCP - GeneralFamily Medicine12/14/22 Hui Vásquez DO [address] [place], [place] [address] Referring PhysicianNeurolog07/31/24 Karmen Tovar NP [address] [place], [place] [address], [place] [address] Family Medicine08/21/24 Destiny Anders NP [address] [place], [place] [address], [place] [address] Nurse PractitionerNeurology08/21/24 Kilo Morfin DO [address] [place], [place] [address], [place] [address] Referring PhysicianInternal Medicine08/28/24 Kilo Beasley DO [address] [place] [address] Otolaryngology09/03/24Team MemberRelationshipSpecialtyStart DateEnd Date Karmen Tovar NP [facility] Referrals ONLY PCP - [facility]01/07/25 Karmen Tovar NP [address] [place] [address] [place] [address] Primary Care ProviderFamsly Medicine08/21/24 Kilo Beasley DO [address] [place] [address] Otolaryngology09/03/24Team MemberRelationshipSpecialtyStart DateEnd Date Karmen Tovar NP [facility] Referrals ONLY [facility] - [facility]01/07/25 Karmen Tovar NP [address] [place] [address] [facility]08/21/24 Kilo Beasley DO [address] [place] [address] Otolaryngology09/03/24 Team Status: Inactive Member Role Status Dates Karmen Tovar APRN QUANTITATIVE RESEARCHER-C Primary Care Provider Active Start: January 15, 2025 End: January 15, 2025NicLuis Alvarado ProviderActiveStart: January 15, 2025 End: January 15, 2025 Team Status: Inactive Member Role Status Dates Karmen Tovar APRN QUANTITATIVE RESEARCHER-C Primary Care Provider Active Start: February 04, 2025 End: February 04Florin Macias ProviderActiveStart: February 04, 2025 End: February 04, 2025 Team Status: Inactive Member Role Status Dates Karmen Tovar APRN QUANTITATIVE RESEARCHER-C Primary Care Provider Active Start: February 122024 End: February 12, 2025NicNery Alvaradoending ProviderActiveStart: February 12, 2025 End: February 12, 2025 Team Status: Inactive Member Role Status Dates Karmen Tovar APRN QUANTITATIVE RESEARCHER-C Primary Care Provider Active Start: March 12, 2025 End: March 12, 2025Nicole Nery Vásquezending ProviderActiveStart: March 12, 2025 End: March 12, 2025 Team Status: Inactive Member Role Status Dates Karmen Tovar APRN QUANTITATIVE RESEARCHER-C Primary Care Provider Active Start: March End: March 24, 2025Karmen Tovar APRN QUANTITATIVE RESEARCHER-CAttending ProviderActive Start: March 24, 2025 End: March 24, 2025Team MemberRelationshipSpecialtyStart DateEnd Date Karmen Tovar NP [facility] Referrals ONLY PCP - GeneralFamily Medicine01/07/25 Hui Vásquez DO [address] [place] [address] Referring PhysicianNeurolog/ Karmen Tovar NP [address] [place], [place] [address] Primary Care Providermily Medicine08/21/24 Destiny Anders NP [address] [place] [address] Nurse PractitionerNeurology Kilo Morfin DO [address] [place] [address] Referring PhysicianInternal Medicine Kilo Beasley DO [address] [place] [address] Otolaryngology09/03/24 Goals (unrecognized section and content) Goals may [...] BE BASED ON THE PRIMARY CLINICAL RECORDS. [employer] [facility]. provides no warranty or guarantee of the accuracy or completeness of information in this document.
--- OUTSIDE RECORDS SUMMARY | 2025-05-19 20:10 | XMS_ITS | Clinical Summary ---
Author Organization [facility] Address [address] [place] [address], [address] [place] [id number] Care Team Providers Care Rubber Tile Floor Layer Name Role Phone Unavailable Primary Care Provider Unavailabl e Social History Tobacco UseTypesPacks/DayYears UsedDateSmoking Tobacco: Never Assessed CommentsUnknownSex and Gender InformationValueDate RecordedSex Assigned at Not on fileLegal WmbYusham00/10/2013 1:19 PM ESTGender IdentityNot on fileSexual OrientationNot on file Plan of Treatment Not on file
--- OUTSIDE RECORDS SUMMARY | 2025-05-19 20:10 | XMS_ITS | Clinical Summary ---
Author Organization [facility] Address [address] [place] [address] Phone Care Team Providers Care Cylinder Grinder Name Role Phone Karmen Tovar APRN-ENTERPRISE SOFTWARE DEVELOPER Primary Care Pro vider Allergies Active AllergyReactionsCriticalityNoted DateCommentsPenicillinsHivesLow 11/11/20134395Owpurzt-Vtn-Mvd Reductase BenaqvyoeiQwhwcdoHyx95/11/2024 Medications MedicationSigDispense QuantityRefillsLast FilledStart DateEnd DateStatus DULoxetine [...] (Repatha SureClick) 140 mg/mL injection Indications:Atherosclerosis of lytton coronary artery of lyt[place] heart without angina pectoris,Hyperlipidemia, unspecified hyperlipidemia typeInject 1 mL (140 mg) under the skin every 14 (fourteen) days. 6 mL ctive aspirin 81 mg EC tablet Indications:Atherosclerosis of lytton coronary artery of [place]yt[place] heart without angina pectorisTake 1 tablet (81 mg) by mouth once daily. 90 tablet ctive spironolactone (Aldactone) 100 mg tablet Indications:Atherosclerosis of lytton coronary artery of lyt[place] heart without angina pectorisTAKE 1 TABLET DAILY 90 tablet 5Active metoprolol tartrate (Lopressor) 25 mg tablet Indications:Atherosclerosis of lytton coronary artery of lyt[place] heart without angina pectorisTAKE 1 TABLET TWICE A DAY 180 tablet 5Active Active Problems ProblemNoted DateDiagnosed DateBody mass index (BMI) 29.0-29.9, adult04/01/2024 Diabetes mellitus type II, non insulin aenddyugc04/11/2024Major depressive disorder, single episode, mild08/20/2023therosclerosis of coronary artery of lytton heart without angina jxumozei21/13/2023hest xwiopuyv54/13/2023urrent every day njpwfh1703/23/20237900Kobvo74/13/0300Mmrxsfn32/13/2023Hyperlipidemia 03/23/2023Myocardial lowfwxhphg47/13/2014Blqljnewwjpm24/13/2023SVT (paroxysmal supraventricular tachycardia)03/23/2023Status post cqskfoywqbd86/13/2023TIA (transient ischemic attack)03/23/2023 Encounters DateTypeDepartmentCare QzbdEowasqcybxy27/23/2025Refill [address] [address] Elfego Mclean, Atherosclerosis of lytton coronary artery of lytton heart without angina jpotmdvs02/20/2025Telephone [address] [address] Kathy Churchill LPN Lab Kigsuc1603/30/2025Refill [address] [address] Kathy Churchill LPN Atherosclerosis of lytton coronary artery of lytton heart without angina pectoris; Hyperlipidemia, unspecified hyperlipidemia [...] InformationValueDate RecordedSex Assigned at BirthNot on fileLegal GjgOdwxdl21/25/2022 9:37 PM EST Gender IdentityNot on fileSexual OrientationNot on file Last Filed Vital Signs Vital SignReadingTime TakenCommentsBlood Lktxwiad125/7810 12:12 PM EDT Ocelk281704/01/2024 12:12 PM EDTTemperature--Respiratory Rate--Oxygen Saturation-- Inhaled Oxygen Concentration--Ukkjuq18.1 kg (170 lb)04/01/2024 12:12 PM EDT Rkllhy170.6 cm (5' 4 )04/01/2024 12:12 PM EDTBody Mass Index29.181 12:12 PM EDT Plan of Treatment DateTypeDepartmentCare Team (Latest Contact Info)Ydvukqreyyp51/10/2025 9:30 AM ESTOffice Visit [facility] [address] [facility] [address] [place] [address] Elfego Mclean, [address] [facility] [address] [place] [address] Health MaintenanceDue DateLast DoneCommentsCT Dgiqbgylpnxg1970Diabetes: Hemoglobin A1C1970Diabetes: Urine Protein Ooblbrrzp1970FIT-DNA (Cologuard)1970FIT1970HIV Hmpvsbiwn1970Lipid Panel1970 Qnzxendfngufk1970MMR Vaccines (1 of 1 - Standard series)1971 Diabetes: Retinopathy Msbfdjwaa67/21/1980Hepatitis C Hirkprcni72/21/1988 Hepatitis B Vaccines (1 of 3 - 19+ 3-dose series)1989Pneumococcal Vaccine (1 of 2 - PCV)1989HPV/Mjonyb9501/29/1991DTaP/Tdap/Td Vaccines (1 - Tdap) 01/30/1992Zoster Vaccines (1 of 2)01/30/2020Yearly Adult Flvzluty36/12/2024 01/19/2023Influenza Vaccine (#1)5COVID-19 Vaccine (2024- season) 504/06/2021, 11/05/2020, 08/30/2020ervical Cancer Tzorkrjui43/17/2026 Pap Smear/, 04/19/20222756Bwwpafpvd76/30/202610/ Thqauvbmvzo14/16/203505/, 02/02/2015Colorectal Cancer Oamnjgbby28/16/2035 HIB VaccinesAged OutNo longer eligible based on patient's age to complete this topicHPV VaccinesAged OutNo longer eligible based on patient's age to complete this topicHepatitis A VaccinesAged OutNo longer eligible based on patient's age to complete this topicIPV VaccinesAged OutNo longer eligible based on patient's age to complete this topicMeningococcal VaccineAged OutNo longer eligible based on patient's age to complete this topicRotavirus VaccinesAged OutNo longer eligible based on patient's age to complete this topic Insurance * Guarantor: Ninfa Tillman TypeRelation to PatientDate of BirthPhone Billing AddressPersonal/ClaobxIvko1970 [facility] [address] Care Teams Team MemberRelationshipSpecialtyStart DateEnd Date Karmen Tovar APRN-ENTERPRISE SOFTWARE DEVELOPER [address] [place] [address] PCP - GeneralFamily Nwayzxbi06/22/24
--- OUTSIDE RECORDS SUMMARY | 2025-05-19 20:10 | XMS_ITS | Clinical Summary ---
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 Name Role Phone Cyndee Moseley EXTRUSION LINE OPERATOR Unavailable Kilo Beasley DO Unavailable [phone] Cyndee Moseley EXTRUSION LINE OPERATOR Primary Care Provider Allergies Active AllergyReactionsCriticalityNoted DateCommentsPenicillin GUnknown 5321ZlvkfiudlqhClfawZdr67/03/8828UkelwntQhakvvfLdj88/11/2024 Medications MedicationSigDispense QuantityRefillsLast FilledStart DateEnd DateStatus ASPIRIN [...] Auto CPAP Auto CPAP minimum 5cmH2O maximum 54mjW2R dx: G47.30 Q sleep and nap CPAP [...] Active Problems ProblemNoted DateDiagnosed DateParesthesia of foot, hqzffyjcf27/07/2024Snoring 10/16/2023omplicated tpvwpkyu98/06/2024rm paresthesia, left10/15/2023 Kulgepsvaojg27/06/2024aresthesia of right arm10/15/2023arpal tunnel syndrome, left10/15/2023OSA (obstructive sleep apnea)10/15/2023LMD (periodic limb movement disorder)10/15/2023Transient ischemic gmgsln7510/30/2013therosclerosis of coronary ddgkxw4309/22/2013Pure tczjunnceawnktrjwmjy72/14/2014 Resolved Problems ProblemNoted DateDiagnosed DateResolved DateBiliary sdevqpokmf90/16/2025 08/24/2024 Overview (08/24/2024): -HIDA=0% EF August 2013-Abnormally [...] Esophagitis on 01/20154 EGD IBS-C Hx of CAD/[place]- off Plavix 01/2015 Tobacco Use- In remission [...] benefit from long-term PPI in the future. (DOC:[id number]) ?? Patient Instructions: 1: Treat H-Pylori since [...] pylori h pylori breath test= negative Early msaxtik03Gastroesophageal xatfeh27ody mass index (BMI) 29.0-29.9, adultDiabetes mellitus type II, non insulin cewkuhrrh69Major depressive disorder, single episode, mildhest rmcjfrsn04urrent every day aknrix16EdemaPericarditis (HHS-HCC) PSVT (paroxysmal supraventricular tachycardia)03/23/2023 08/24/2024Status post ggjjcshlwod56H. pylori infection bdominal pain, right upper ouxqgioe28 Myocardial yvvnsufyze02 Overview (08/24/2024): PTCA Family History Medical HistoryRelationNameCommentsObesityFatherAlzheimer's diseaseMaternal GrandfatherMental illnessMaternal [...] or more drinks on one occasion?Less than wutnzbf4510/15/2023CommentsUnknownSex and Gender InformationValueDate RecordedSex Assigned at BirthNot on fileLegal WrvTxslrz84/15/2023 7:16 PM EDT Gender IdentityNot on fileSexual OrientationNot on file Last Filed Vital Signs Vital SignReadingTime TakenCommentsBlood Vvswqqxg646/70008/28/2024 2:48 PM EDT Twbwl525508/28/2024 2:48 PM EDTTemperature--Respiratory Rate--Oxygen Nzviqlzopj19% 08/28/2024 2:48 PM EDTInhaled Oxygen Concentration--Uwgvxt39.1 kg (170 lb) 01/07/2025 3:53 PM EKGZcpxvi895.6 cm (5' 4 )01/07/2025 3:53 PM EDTBody Mass Index29.1807 3:53 PM EDT Plan of Treatment Health MaintenanceDue DateLast DoneCommentsCT Svjvnabrjeiw1970FIT-DNA 1970FIT1970FOBT1970 1849Tsdvilnfcfdoo1970Colonoscopy , 02/02/2015Colorectal Cancer Szoztvdnr35/25/2025OVID-19 Vaccine ( season), 11/05/2020, 08/30/2020 Influenza Vaccine (#1)02/09/20253705Qkmqvcwfv97, 03/29/2023 Cervical Cancer Guaznihra08/17/2028HPV/Crrvxo3003/27/2028Pap Smear03/27/2028 03/27/2023, 04/19/2022neumococcal Vaccine: Pediatrics (0 to 5 Years) and At- Risk Patients (6 to 64 Years)Aged OutNo longer eligible based on patient's age to complete this topic Procedures Procedure NamePriorityDate/TimeAssociated DiagnosisCommentsMM TOMOSYNTHESIS SCREENING BI04/06/2024 7:41 PM EDT PAP FFAUROrsxqyv72/17/2023 12:00 AM EDTfrom Last 3 Months or Most Recently Relevant to Health Maintenance Results * MM TOMOSYNTHESIS SCREENING BI (04/06/2024 7:41 PM EDT)Anatomical Region LateralityModalityOtherSpecimen (Source)Anatomical Location / Laterality Collection Method / VolumeCollection TimeReceived Time04/06/2024 7:41 PM EDT Narrative 04/06/2024 7:42 PM EDT [facility] ?[address] ? [place] [id number] ? Mammography Report ? Signed ? Patient: SHEFALI MENDOZA ?MR#: [id number] ?? : 1970 ?Acct:[id number] ?? Age/Sex: 54 / F ?ADM Date: 04/03/24 ?? Loc: MAMMO ? Attending Dr: Eduardo Huitron D.O. ? Ordering Physician: Eduardo Huitron D.O. ?Results: ? Date of Service: 04/03/24 ?Follow Up: ? Procedure(s): MM tomosynthesis screening BI ?? Accession Number(s): [id number] ? cc: Eduardo Huitron D.O.; CYNDEE MOSELEY ? Patient Name: ? SHEFALI MENDOZA ? MR#: [id number] ? : 1970 ? Exam Date: 04/03/2024 [...] at age 50. ? LOCATION: ? [facility] ? BREAST COMPOSITION: ? The breasts [...] 1942 ? DD/ 1941 ? TD/TT: ? Box Inspector: Procedure Note Radiology, Radiologist, MD - 04/06/2024 [place] [address] Mammography Report Signed Patient: SHEFALI MENDOZA RMR#: [id number] : 1970Acct:[id number] Age/Sex: 54 / FADM Date: 04/03/24 Loc: MAMMO Attending Dr: Eduardo Huitron D.O. Ordering Physician: Eduardo Huitron D.O.Results: Date of Service: 04/03/24Follow Up: Procedure(s): MM tomosynthesis screening BI Accession Number(s): [id number] cc: Eduardo Huitron D.O.; CYNDEE MOSELEY Patient Name: SHEFALI MENDOZA MR#: [id number] : 1970 Exam Date: 04/03/2024 Ordering Doctor: DR Eduardo Huitron . RADIOLOGY REPORT PROCEDURE: MM TOMOSYNTHESIS SCREENING BI COMPARISON: MM TOMOSYNTHESIS SCREENING BI, 03/28/2023. MG MAMM RYSKHF1P SAUL CAD, 09/08/2021. MG MAMM SCREEN SAUL [...] withcolon cancer at age 50. LOCATION: [facility] BREAST COMPOSITION: The breasts are heterogeneously [...] Kimble M.D. Signed By:04/06/241941 DD/ 40 TD/TT: Box Inspector: Authorizing ProviderResult TypeResult StatusCorey Elana DOCLINISYNC IMAGINGFinal Result * Pap Smear (03/27/2023 12:00 AM EDT)Specimen (Source)Anatomical Location / LateralityCollection Method / VolumeCollection TimeReceived TimeSwabCervical swab / Unknown Narrative Authorizing ProviderResult TypeResult StatusAmy Loretto [facility] ORDERABLES Final ResultPerforming OrganizationAddressCity/State/ZIP CodePhone Number EXTERNAL LAB from Last 3 Months or Most Recently Relevant to Health Maintenance Insurance Care Teams Team MemberRelationshipSpecialtyStart DateEnd Cyndee Moseley NP [facility] Referrals ONLY PCP - GeneralFamily Medicine01/07/25 Cyndee Moseley NP [address] [facility] [place] [address] [place] [address] Primary Care ProviderFamily Medicine08/21/24 Kilo Beasley DO [address] [place] [address] Otolaryngology09/03/24
== END 2025-05-19 20:07 | disposition home or self-care (01) ==
PROVIDERS: PCP Nurse Practitioner Family; Visit Provider Psychiatry & Neurology Neurology
DX: G47.33 Obstructive sleep apnea (adult) (pediatric) (principal)
CPT/HCPCS: 95810; 95811